=== PATIENT | male | born 1940 | race Caucasian/White ===

== ENCOUNTER 2023-08-10 13:56 | Outpatient (RCR) | payer MEDICARE, OTHER, SELFPAY | END 2023-08-11 07:36 | disposition home or self-care (01) | LOC: RPT 13:56 | PROVIDERS: ATTENDING PHYSICIAN Internal Medicine | DX: R26.89 Other abnormalities of gait and mobility (principal); R53.1 Weakness; Z73.6 Limitation of activities due to disability; R26.2 Difficulty in walking, not elsewhere classified | CPT/HCPCS: 97112; 97116; 97530 ==

== ENCOUNTER → 2023-08-29 12:18 | Outpatient (REF) | payer MEDICARE, OTHER, SELFPAY ==
[2023-08-29 13:24] LABS: INR 2.41; PT 26.6 Sec (11.4-14.6)
== END ==
LOC: REG 12:18
PROVIDERS: ATTENDING PHYSICIAN Internal Medicine Cardiovascular Disease; FAMILY PHYSICIAN Internal Medicine; REFERRING PHYSICIAN Physician Assistant
DX: Z79.01 Long term (current) use of anticoagulants (principal)
CPT/HCPCS: 36415; 85610

== ENCOUNTER → 2023-09-04 12:30 | Outpatient (REF) | payer MEDICARE, OTHER, SELFPAY ==
[2023-09-04 16:40] LABS: % Eosinophils 1.9 % (0-6); % Immature Granulocytes 0.2 % (0-0.5); % Lymphocytes 22.6 % (20.5-51.1); % Monocytes 12.6 % (1.7-9.3); % Neutrophils 61.7 % (42.2-75.2); Absolute Basophils 0.1 10^3/uL (0-0.2); Absolute Eosinophils 0.1 10^3/uL (0-0.7); Absolute Lymphocytes 1.1 10^3/uL (1.2-3.4); Absolute Monocytes 0.6 10^3/uL (0.1-0.6); Hematocrit 28.6 % (39.0-52.0); Hemoglobin 9.6 g/dL (13.0-18.0); Mean Corp Hgb Conc. 33.6 g/dL (33.0-37.0); Mean Corpuscular Hgb 34.8 pg (27.0-31.0); Mean Corpuscular Volume 103.6 fL (80.0-94.0); Mean Platelet Volume 10.7 fL (7.4-10.4); Nucleated Red Blood Cells % 0 % (-); Platelet Count 243 10^3/uL (130-400); Red Blood Cell Count 2.76 10^6/uL (4.70-6.10); Red Cell Dist. Width 12.5 % (11.5-14.5); White Blood Cell Count 4.9 10^3/uL (4.8-10.8)
[2023-09-04 16:47] LABS: ALT (SGPT) 21 U/L (0-50); AST (SGOT) 27 U/L (17-59); Albumin 4.1 g/dl (3.5-5.0); Alkaline Phosphatase 84 U/L (38-126); Blood Urea Nitrogen 37 mg/dl (9-20); Calcium 9.7 mg/dl (8.4-10.2); Carbon Dioxide 31 mmol/L (22-30); Chloride 96 mmol/L (98-107); Glucose 127 mg/dl (70-99); Potassium 5.1 mmol/L (3.5-5.1); Sodium 132 mmol/L (135-145); Total Bilirubin 0.7 mg/dl (0.2-1.3); Total Protein 7.1 g/dl (6.3-8.2); eGFR > 60.00
== END ==
LOC: CLAB 12:30
PROVIDERS: ATTENDING PHYSICIAN Internal Medicine
DX: I10 Essential (primary) hypertension (principal); I50.43 Acute on chronic combined systolic (congestive) and diastolic (congestive) heart failure; I48.91 Unspecified atrial fibrillation; D64.9 Anemia, unspecified
CPT/HCPCS: 36415; 80053; 85025

== ENCOUNTER → 2023-09-26 10:14 | Outpatient (REF) | payer MEDICARE, OTHER, SELFPAY ==
[2023-09-26 11:05] LABS: % Basophils 1.2 % (0-2); % Eosinophils 2.5 % (0-6); % Immature Granulocytes 0.2 % (0-0.5); % Lymphocytes 26.3 % (20.5-51.1); % Neutrophils 58.8 % (42.2-75.2); Absolute Basophils 0.1 10^3/uL (0-0.2); Absolute Eosinophils 0.1 10^3/uL (0-0.7); Absolute Lymphocytes 1.3 10^3/uL (1.2-3.4); Absolute Monocytes 0.6 10^3/uL (0.1-0.6); Hematocrit 33.7 % (39.0-52.0); Hemoglobin 11.4 g/dL (13.0-18.0); Mean Corp Hgb Conc. 33.8 g/dL (33.0-37.0); Mean Corpuscular Hgb 34.1 pg (27.0-31.0); Mean Corpuscular Volume 100.9 fL (80.0-94.0); Mean Platelet Volume 10.2 fL (7.4-10.4); Nucleated Red Blood Cells % 0 % (-); Platelet Count 211 10^3/uL (130-400); Red Blood Cell Count 3.34 10^6/uL (4.70-6.10); Red Cell Dist. Width 12.1 % (11.5-14.5); White Blood Cell Count 5.1 10^3/uL (4.8-10.8)
[2023-09-26 11:31] LABS: Iron 151 ug/dl (49-181)
[2023-09-26 11:40] LABS: Percent Saturation 57 % (20-50); Total Iron Binding Capacity 263 ug/dl (261-462)
[2023-09-29 01:45] LABS: Albumin 4.54 g/dL (3.75-5.01); Alpha 1 Globulin 0.25 g/dL (0.19-0.46); Alpha 2 Globulin 0.85 g/dL (0.48-1.05); Free Kappa Light Chains,Quant 69.07 mg/L (3.30-19.40); Free Lambda Light Chains,Quant 25.94 mg/L (5.71-26.30); IgA 439 mg/dL (68-408); IgG 1122 mg/dL (768-1632); IgM 92 mg/dL (35-263); Immunofixation Electrophoresis IFE Done; Kappa/Lambda Fr Light Ratio 2.66 (0.26-1.65); Total Protein-Electrophoresis 7.7 g/dL (6.3-8.2)
== END ==
LOC: REG 10:14
PROVIDERS: ATTENDING PHYSICIAN Internal Medicine Hematology & Oncology; FAMILY PHYSICIAN Internal Medicine
DX: C34.90 Malignant neoplasm of unspecified part of unspecified bronchus or lung (principal); D50.9 Iron deficiency anemia, unspecified; Z51.81 Encounter for therapeutic drug level monitoring
CPT/HCPCS: 36415; 82728; 82784; 83521; 83540; 83550; 84155; 84165; 85025; 85045; 86334

== ENCOUNTER 2023-10-09 05:09 | Inpatient (IN) | payer MEDICARE, OTHER, SELFPAY ==
[2023-10-09] VITALS (20 sets, daily range): BP systolic 103–181; BP diastolic 51–140; BMI 24.0; BMI 23.3
[2023-10-09] MEDS: ZOFRAN 4 MG IV (02:04)
[2023-10-09 02:35] LABS: % Basophils 0.6 % (0-2); % Eosinophils 1.4 % (0-6); % Immature Granulocytes 0.5 % (0-0.5); % Lymphocytes 14.1 % (20.5-51.1); % Monocytes 9.3 % (1.7-9.3); % Neutrophils 74.1 % (42.2-75.2); Absolute Eosinophils 0.1 10^3/uL (0-0.7); Absolute Lymphocytes 0.9 10^3/uL (1.2-3.4); Absolute Monocytes 0.6 10^3/uL (0.1-0.6); Absolute Neutrophils 4.9 10^3/uL (1.4-6.5); Hematocrit 27.5 % (39.0-52.0); Mean Corp Hgb Conc. 36.4 g/dL (33.0-37.0); Mean Corpuscular Hgb 34.2 pg (27.0-31.0); Mean Corpuscular Volume 94.2 fL (80.0-94.0); Mean Platelet Volume 10.3 fL (7.4-10.4); Nucleated Red Blood Cells % 0 % (-); Platelet Count 175 10^3/uL (130-400); Red Blood Cell Count 2.92 10^6/uL (4.70-6.10); White Blood Cell Count 6.7 10^3/uL (4.8-10.8)
[2023-10-09 02:43] LABS: INR 3.24; PT 33.1 Sec (11.4-14.6)
[2023-10-09 02:50] LABS: ALT (SGPT) 22 U/L (0-50); AST (SGOT) 30 U/L (17-59); Albumin 4.4 g/dl (3.5-5.0); Alkaline Phosphatase 98 U/L (38-126); Blood Urea Nitrogen 47 mg/dl (9-20); Calcium 9.5 mg/dl (8.4-10.2); Carbon Dioxide 30 mmol/L (22-30); Chloride 97 mmol/L (98-107); Estimated Creatinine Clearance 43 ml/min; Glucose 171 mg/dl (70-99); Lipase 84 U/L (23-300); Potassium 4.3 mmol/L (3.5-5.1); Sodium 135 mmol/L (135-145); Total Bilirubin 0.7 mg/dl (0.2-1.3); Total Protein 7.5 g/dl (6.3-8.2); eGFR 50.49
--- NOTE | 2023-10-09 04:13 | ED.GENMED ---
History of Present Illness
General
Chief Complaint: Abdominal Symptoms
Source: patient and family
Exam Limitations: none
Time Seen by Provider: 10/09/23 03:44
Nursing documentation reviewed up to this point in time: agreed with
Travel History
Have you had any contact with someone who has COVID-19?: No
Do you have any symptoms of coronavirus? Fever > 100 degrees, chills, cough, shortness of breath, sore throat, loss of taste or smell, muscle aches, or headache?: No
History of Present Illness
History of Present Illness:
Pleasant 83-year-old male presents with nausea, and vomiting. Patient had dark red vomitus. Patient had oral surgery about a week ago and was started on amoxicillin. Patient started vomiting on Monday and they stopped the amoxicillin as they
thought that it was contributing to the vomiting. He has not been on amoxicillin for 24 hours and the vomiting persisted. Today it was dark red. He told his that he needed to come to the hospital because he was 'too weak '. Patient does
have a history of anemia and is followed by weight engineer. He is due for a bone marrow biopsy next week. Patient is reluctant to get it.
Vital signs are stable. Patient not hypoxic
Nursing note reviewed. I agree with nursing documentation up to this point in time.
Home Meds and allergies reviewed.
NUMBER AND COMPLEXITY OF PROBLEMS ADDRESSED AT THE ENCOUNTER
� Chronic conditions affecting care: Anemia, epilepsy, TIA, lung cancer, sleep apnea, hypertension, hyperlipidemia
� Acute Exacerbation and/or Progression of Chronic Illness: Anemia
� Differential Diagnosis includes: Upper GI bleed, anemia
AMOUNT AND/OR COMPLEXITY OF DATA TO BE REVIEWED AND ANALYZED
I performed an independent evaluation of the following and my interpretation is:
EKG:
CT:
X-rays:
Ultrasound:
Laboratory Studies: Hemoglobin of 10.0
Other:
Review of other/old records:
Clinical information was obtained by an independent historian:
Prescriptions/Medications Considered but not given:
Further testing considered but not performed:
RISK OF COMPLICATIONS AND/OR MORBIDITY OR MORTALITY OF PATIENT MANAGEMENT
Social determinants of health affecting care: Good Social Support
Discussion with other providers: Hospitalist for admission
Escalation of care including admission/observation vs risk of discharge considered: Patient weak, with hematemesis
CRITICAL CARE NOTE: Not applicable
Total Time (exclusive of procedures):
Update:
Past History
Past History
ED Past Medical History: Asthma, Cancer (Lung), CHF, CVA, HTN, Hypercholesterolemia, Seizures and Other (COREY, C-pap at night, Meningitis, )
ED Past Surgical History: Tonsilectomy and Other (right lobectomy, Uvulectomy)
Social History
Tobacco: Non-smoker
Alcohol: None
Drug: None
Personal:
Living: with family
Employment: Retired
Family History
Family History: Other (reviewed and Noncontributory)
Review of Systems
Review of Systems
Allergies reviewed?: Yes
Other source history: family
All Other Systems: ROS reviewed and negative except as documented in HPI and ROS
Constitutional: Reports fatigue
EENT: Reports no symptoms
Respiratory: Reports no symptoms
Cardiac: Reports no symptoms
ABD/GI: Reports vomiting
: Reports no symptoms
Musculoskeletal: Reports no symptoms
Skin: Reports no symptoms
Neurological: Reports weakness
Endocrine: Reports no symptoms
Hematologic/Lymphatic: Reports no symptoms
Psychiatric: Reports anxiety
Phy Exam
General Physical Exam
General Presentation: mild distress
General Skin: warm, dry and pale
General Habitus: frail
General Mental: alert
General Hydration: dry mucous membranes
ENT Exam
ENT Exam: EOMI, pharynx normal, neck supple and normocephalic
Eye Exam
Eye Exam: PERRL, cornea clear and conjunctiva normal
Cardiovascular Exam
Cardiovascular Exam: regular rate/rhythm, no edema, no murmur and normal peripheral pulses
Systolic Murmur: 4/6
Pulmonary Exam
Pulmonary Exam: no respiratory distress
Gastrointestinal Exam
Gastrointestinal Exam: normal bowel sounds, non tender, soft, no organomegaly, no pulsatile mass and non distended
Neurological Exam
Neurological Exam: alert and oriented x3
Musculoskeletal Exam
Musculoskeletal Exam: full ROM and no edema
Skin Exam
Skin Exam: warm/dry
Psychiatric Exam
Psychiatric Exam: normal mood/affect and anxious
Course
Orders/Labs/Results
Orders:
Orders
10/09/23 01:52
IV Insert/Care/Rem.- Treatment PRN
10/09/23 01:56
Ondansetron Injectable [Zofran] 4 mg .ROUTE .[facility]
10/09/23 02:00
Type+Screen Urgent
Complete Blood Count/With Diff Urgent
Comprehensive Metabolic Panel Urgent
Lipase Urgent
PT/INR [Prothrombin Time] Urgent
10/09/23 02:03
Ondansetron Injectable [Zofran] 4 mg IV NOW STA
10/09/23 04:13
Pantoprazole [Protonix IV] 80 mg IV NOW STA
10/09/23 04:15
Pantoprazole 80 mg/ 100 mL 8 mg/hr CONTINUOUS INFUSION Pantoprazole 80 mg/100 ml Nss [Protonix] 80 mg in 100 ml IV Q10H
Abnormal Lab Results
10/09/23
02:00
RBC 2.92 L 10^6/uL
(4.70-6.10)
Hgb 10.0 L g/dL
(13.0-18.0)
Hct 27.5 L %
(39.0-52.0)
MCV 94.2 H fL
(80.0-94.0)
MCH 34.2 H pg
(27.0-31.0)
Absolute Lymphs (auto) 0.9 L 10^3/uL
(1.2-3.4)
Lymphocytes % 14.1 L %
(20.5-51.1)
PT 33.1 H Sec
(11.4-14.6)
Chloride 97 L mmol/L
(98-107)
BUN 47 H mg/dl
(9-20)
Creatinine 1.4 H mg/dL
(0.7-1.3)
Glucose 171 H mg/dl
(70-99)
10/09/23 02:00
10/09/23 02:00
Vital Signs
Initial and Last Documented VS:
Initial Vital Signs
Resp
20
10/09/23 01:54
Last Documented Vital Signs
Temp Pulse Resp BP Pulse Ox
98.4 F 53 27 135/60 96
10/09/23 02:06 10/09/23 03:30 10/09/23 03:30 10/09/23 03:00 10/09/23 03:30
*Critical Care Note
Total Time (30-74mins, 75-104mins- exclusive of procedures): Not Applicable
Update Note
Update Note:
10/09/2023 0433 AM: Rectal exam, performed in the presence of female nurse, occult positive. Grossly negative. Discussed blood consent. Patient verbalized understanding and agreed to transfusion if necessary. Nursing witnessed and signed. Blood
consent on chart.
ED Attending Note
-
Portions of this chart may have been created with voice recognition software.� Occasional wrong word or��sound alike� substitutions may have occurred due to the inherent limitations of voice recognition software.
Discharge Plan
Departure
Patient Disposition: Admit
Date of Disposition: 10/09/23
Time of Disposition: 04:26
Admit to: Telemetry
Presentation/result/management discussed w/ accepting MD/DO: Hospitalist
Discharge Problem:
Acute upper GI bleeding, Anemia
Prescriptions:
No Action
minoxidil 10 mg Tablet
10 mg PO BID
clonidine 0.3 MG patch weekly
0.3 mg transdermal WE
Rx Instructions:
03/01/2023, PLACE ON RIGHT SHOULDER
levetiracetam 500 mg Tablet
1,500 mg PO BID Qty: 180 1RF
cyanocobalamin (vitamin B-12) 1,000 mcg Tablet
1,000 mcg PO DAILY Qty: 30 1RF
pantoprazole 40 mg Tablet,Delayed Release (Dr/Ec)
40 mg PO DAILY Qty: 30 0RF
labetalol 200 mg tablet
600 mg PO BID
carbamazepine 200 mg Tablet Extended Release 12 Hr
600 mg PO BID
lacosamide [Vimpat] 100 mg tablet
100 mg PO BID
Patient Comments:
08/23/2023: last filled 08/08/23, 60 tabs for 30 days from [facility]
warfarin [Jantoven] 2.5 mg Tablet
5 mg PO QHS 5 Days Qty: 10 0RF
Rx Instructions:
please check INR tomrorow 08/29 and adjust with clinic as needed daily or as directed
furosemide 40 mg Tablet
40 mg PO DAILY 30 Days Qty: 30 0RF
Referrals:
Robin Garcia MD [Family Provider] -
Interventions
Interventions:
*Risk Screen - Suicide Last Done: 10/09/23 01:55
*General Assessment Last Done: 10/09/23 01:55
*Neglect/Abuse Screening Last Done: 10/09/23 01:55
ED- Fall Risk Assessment Last Done: 10/09/23 02:26
*ED COVID-19 Vaccine History Last Done: 10/09/23 01:55
KX-Vbmged-Idqavhlowd Assessment Last Done: 10/09/23 02:26
[2023-10-09] MEDS: PROTONIX IV 80 MG IV (04:19)
[2023-10-09] MEDS: PROTONIX 100 IV ×3 (04:20→14:03)
--- NOTE | 2023-10-09 04:57 | HPS.HSE ---
Family Physician
-
Family Physician: Robin Garcia
Chief Complaint
-
N/V
History of Present Illness
Patient is an 83y M with PMH significant for seizure disorder, HTN and CHF who presents to ED complaining of N/V and weakness. Patient was last hospitalized here in July of this year and noted to be in new A-Fib and CHF. He was newly started
on Coumadin and furosemide at that time. Last , patient underwent dental surgery including bridge removal and tooth extraction. He states that he did not interrupt his Coumadin therapy for this procedure. Following the procedure, he was
placed on amoxicillin. On Monday, he began to have nausea with intermittent episodes of emesis. He then stopped the amoxicillin which he thought might be contributing. His symptoms persisted despite this and patient presented to the ED for
further evaluation.
ED staff indicates that patient had dark red appearing vomitus. Patient denies any gross bleeding to me, but admits that he did not look at his vomitus.
He denies any abdominal pain, fevers, chills or urinary complaints. He denies any black or bloody stools.
Patient states that his last dose of Coumadin was 7.5mg this evening prior to bed.
Medical History
Past Medical History
Past Medical History: Reports Other
Additional Past Medical History:
Seizure disorder
Lung Cancer
Dyslipidemia
Hypertension
Sleep apnea on CPAP
History of melanoma
Colonic polyp status post polypectomy
Childhood meningitis
Ambulatory dysfunction
Cognitive dysfunction and decline
Chronic HFmrEF
Atrial Fibrillation
Chronic Anemia
CKD III
Past Surgical History: Reports Other
Additional Past Surgical History:
Right Upper Lobectomy
Melanoma Excision
Colonoscopies
Social History
Tobacco: Non-smoker
Alcohol: None
Drug: None
Family History
Family History: Not pertinent
Allergies / Home Medications
Allergies reflects when Allergies were last updated in [employer].
Home Medications with original date entered in [employer]
Allergy/Medication List:
Allergies
Allergy/AdvReac Type Severity Reaction Status Date / Time
hydralazine Allergy Unknown Verified 10/09/23 01:59
pollen extracts Allergy nasal Verified 10/09/23 01:59
symptoms
Home Medications
clonidine 0.3 mg/24 hr weekly transdermal patch 0.3 mg transdermal WE Blood Pressure 01/22/23
minoxidil 10 mg tablet 10 mg PO BID Blood Pressure 01/22/23
cyanocobalamin (vitamin B-12) 1,000 mcg tablet 1,000 mcg PO DAILY #30 tabs 02/13/23
levetiracetam 500 mg tablet 1,500 mg PO BID #180 tabs 02/13/23
pantoprazole 40 mg tablet,delayed release 40 mg PO DAILY #30 tabs 02/13/23
labetalol 200 mg tablet 600 mg PO BID 02/27/23
carbamazepine 200 mg tablet,extended release,12 hr 600 mg PO BID 03/01/23
lacosamide 100 mg tablet (Vimpat) 100 mg PO BID 03/01/23
furosemide 40 mg tablet 40 mg PO DAILY 30 days #30 tabs 08/28/23
warfarin 2.5 mg tablet (Jantoven) 7.5 mg PO QHS 10/09/23
Review of Systems
-
History Source: Patient
A 12 point ROS was completed and negative except as noted: Yes
Constitutional: Reports Fatigue; Denies Fever, Weight Gain or Chills
Respiratory: Denies Cough or Trouble Breathing
Cardiac: Denies Chest Pain or Palpitations
Abdomen/GI: Reports Nausea and Vomiting; Denies Abdominal Pain, Diarrhea, Constipated, Bloody Stools or Black Stools
: Denies Dysuria or Frequency
Neurological: Reports Dizzy; Denies Headache
Psych: Denies Depression or Anxiety
Physical Exam
Vital Signs
Vital Signs
Temp Pulse Resp BP Pulse Ox
98.4 F 53 27 135/60 96
10/09/23 02:06 10/09/23 03:30 10/09/23 03:30 10/09/23 03:00 10/09/23 03:30
Physical Exam
General: Other (83y M in no acute distress.)
HEENT: Moist mucous membranes and PERRLA
Respiratory: Clear; No Wheezes, Rales or Rhonchi
Cardiac: S1/S2, Regular Rhythm and Murmur (II/ SENTHIL)
GI: Soft, Non Tender, Non Distended and Normal Bowel Sounds
Musculoskeletal: No Clubbing, No Cyanosis and No Edema
Neuro: Awake and Alert
Laboratory Results
-
10/09/23 02:00
10/09/23 02:00
Laboratory Results
PT 33.1 Sec (11.4-14.6) H 10/09/23 02:00
INR 3.24 10/09/23 02:00
Total Bilirubin 0.7 mg/dl (0.2-1.3) 10/09/23 02:00
AST 30 U/L (17-59) 10/09/23 02:00
ALT 22 U/L (0-50) 10/09/23 02:00
Alkaline Phosphatase 98 U/L (38-126) 10/09/23 02:00
Lipase 84 U/L (23-300) 10/09/23 02:00
Impression/Plan
-
A/P: Patient is an 83y M with PMH significant for hypertension, new A-Fib and CHFmrEF who presents to ED complaining of N/V and weakness.
Intractable N/V
- Admit for further evaluation and treatment.
- Suspect acute gastritis secondary to recent abx use / amoxicillin.
- Last dose was > 24 hours ago - would remain off of this medication.
- Supportive care including antiemetics.
- Follow for any new / worsening symptoms.
Heme Positive Stool
Chronic Anemia
- Some reports of dark red vomitus per ED / spouse.
- Patient cannot confirm this to me.
- Occult blood positive stool in the ED.
- Hgb is higher than his typical baseline (though lower than his most recent check - which seems an anomaly).
- Chronic baseline Hgb has been 7-9 g/dL and is currently 10.
- Follow H&H for any changes.
- Transfuse if needed for Hgb < 7, worsening symptoms or ongoing blood loss.
- GI evaluation for further recommendations.
- Hold further amoxicillin / treat gastritis as noted above.
Coumadin Coagulopathy
Paroxysmal Atrial Fibrillation
- INR today is 3.24 with last ortiz of Coumadin being 7.5mg this evening.
- Hold further Coumadin for now.
- Consider active reversal if any hemodynamic changes, further bleeding, etc.
- Maintaining NSR at present.
- Follow on telemetry.
Chronic HFmrEF
Mild - Moderate Aortic Stenosis
- Stable. No evidence of acute volume overload, edema, etc.
- Continue current diuretic dosing, CV med regimen.
- Follow I/Os, daily weights, etc.
Multidrug Resistant Hypertension
- Stable. BP well-controlled at present.
- Continue current med regimen with holding parameters.
Seizure Disorder
- Stable. Continue AEDs without changes / interruption.
- Monitor for any breakthrough seizure activity.
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
- Continue PAP therapy during hospital stay.
CKD III
- Stable. Renal function is at / near known baseline.
- Follow for any changes.
DVT Prophylaxis: SCDs
Code Status: Full
--- NOTE | 2023-10-09 06:41 | PTCARENOTE ---
Rec'd pt as admit from ED. Pt SB on traffic monitor specialist with elevated BP. Pt does state hx of HTN. Pt incontinent of urine, hygiene care provided. Denies nausea at this time, but does c/o being generally uncomfortable. AAOx3, but forgetful, struggles
with recalling some answers to this RN's questions. Pt states that his has the answers. Orientation to this unit provided. Call urban within reach. Safe environment maintained.
--- NOTE | 2023-10-09 06:53 | CON.GI ---
Addendum entered and electronically signed by Victor Manuel Dodson MD 10/09/23 18:38:
I saw and examined the patient.
The PA's note was reviewed and I agree with the note.
Comment:
Pt is a 83 year old male with h/o seizure, asthma, lung CA with lobectomy, colon polyps, sleep apnea, cognitive decline, CKD,�and chronic anemia p/w weakness, nausea/vomiting. It was noted in ER that his vomitus appeared 'reddish'.
Impression / Rec:
1. ? blood in vomitus, anemia - pt was previously seen for anemia in 07/2023 in setting of new afib and CHF with start of Coumadin and Furosemide.� During that admission his Hgb was noted to be in chronic range and had heme -ve stool, thus
recommended hematology evaluation. � He is planned for bone marrow bx next week.� In ER noted 'reddish' emesis, Hgb on admission was 10 with most recent Hgb at 11.4 on 09/26/23 but range of 7-8 over last year.� Pt is on coumadin with INR 3.24 today.
� No prior EGD, last colonoscopy was in 2016 with diverticulosis, adenomatous and HP polyps. Can consider endo eval with EGD, wishes to think about it. Will need to defer until INR < 1.5. OK for CLD.
Original Note:
Consultation
-
Date/Time Consultation Requested: 10/09/23 0600
Date/Time Consultation Performed: 10/09/23 0730
Requesting Provider: Yadiel Adan DO
Performing Provider: ANNE Mueller, Victor Manuel Dodson MD
Reason for Consultation: nausea/vomiting
Medical History
Chief Complaint / HPI
Chief Complaint: nausea/vomiting
History of Present Illness:
Pt is a 83yo with hx seizure disorder, asthma, lung CA with lobectomy, colon polyps, sleep apnea, cognitive decline, CKD, chronic anemia with admission in July with new afib and CHF with start of Coumadin and Furosemide. Pt was seen during
that admission by GI with anemia but hbg was in chronic range and noted heme neg and recommended to consider hematology evaluation. He did have heme follow up and due for bone marrow bx next week. He has recent dental work last week with removal of
bridge and tooth extraction. Post procedure was started on Amoxicillin and began with nausea and vomiting. In ER noted with dark emesis On admission hbg 10 with last hbg 11.4 09/26/23 but range of 7-8 over last year. BUN 47 and 1.4 higher than
prior range with INR 3.24 with Coumadin use and noted heme + in ER. No hx EGD. Last colonoscopy 2015 with diverticulosis, adenomatous and HP polyps. Pt also due for bone marrow biopsy next week.
Pt currently denies dysphagia, odynophagia, GERD, abdominal pain, diarrhea or black stools. Pt does admits to some constipation in past. Several doses of Motrin last week with dental work.
Past Medical History
Past Medical History: Arrhythmias (afib), Asthma, Cancer (lung CA with upper lobectomy 2014, melanoma), CHF, HTN, Renal Failure (CKD), Seizures and Other (anemia, sleep apnea. colon polyps, PNA, congnitive decline)
Past Surgical History: Other (right upper lobectomy, uvulectomy)
Social History
Tobacco: Non-Smoker
Alcohol: Former (quit 30 years ago)
Drug: None
Personal:
Living: With Family
Employment: Retired
Family History
Family History: Other (no family hx colon CA or polyps sister with brain CA)
Allergies / Home Medications
Allergy/AdvReac Type Severity Reaction Status Date / Time
hydralazine Allergy Unknown Verified 10/09/23 01:59
pollen extracts Allergy nasal Verified 10/09/23 01:59
symptoms
Medication Instructions Recorded
clonidine 0.3 mg/24 hr weekly 0.3 mg transdermal WE Blood 01/22/23
transdermal patch Pressure
minoxidil 10 mg tablet 10 mg PO BID Blood Pressure 01/22/23
cyanocobalamin (vitamin B-12) 1,000 mcg PO DAILY #30 tabs 02/13/23
1,000 mcg tablet
levetiracetam 500 mg tablet 1,500 mg PO BID #180 tabs 02/13/23
pantoprazole 40 mg tablet,delayed 40 mg PO DAILY #30 tabs 02/13/23
release
labetalol 200 mg tablet 600 mg PO BID 02/27/23
carbamazepine 200 mg 600 mg PO BID 03/01/23
tablet,extended release,12 hr
lacosamide 100 mg tablet (Vimpat) 100 mg PO BID 03/01/23
furosemide 40 mg tablet 40 mg PO DAILY 30 days #30 tabs 08/28/23
warfarin 2.5 mg tablet (Jantoven) 7.5 mg PO QHS 10/09/23
Review of Systems
-
History Source: Patient and Family
Constitutional: Reports No Symptoms and Weight Loss (with diuresis )
EENT: Reports No Symptoms
Respiratory: Reports Trouble Breathing (at times with exertion )
Cardiac: Reports No Symptoms
Abdomen/GI: Reports Nausea and Vomiting (reported dark emesis )
Musculoskeletal: Reports No Symptoms
Skin: Reports No Symptoms
Neurological: Reports No Symptoms
Endocrine: Reports No Symptoms
Hematologic/Lymphatic: Reports No Symptoms
Vital Signs
Temp Pulse Resp BP Pulse Ox
98.1 F 55 12 133/74 97
10/09/23 06:27 10/09/23 06:00 10/09/23 06:00 10/09/23 06:00 10/09/23 06:00
Physical Exam
Exam
General: Well Developed, Well Nourished and No Apparent Distress
HEENT: Normocephalic and Anicteric
Respiratory: Clear
Cardiac: Other (bradicardia )
GI: Soft
Musculoskeletal: No Clubbing and No Cyanosis
Skin: Warm and Dry
Neuro: Awake, Alert, AO x 3 and Other (forgetful to some questions)
Psych: Calm
Results
WBC 6.7 10^3/uL (4.8-10.8) 10/09/23 02:00
Hgb 10.0 g/dL (13.0-18.0) L 10/09/23 02:00
Hct 27.5 % (39.0-52.0) L 10/09/23 02:00
MCV 94.2 fL (80.0-94.0) H 10/09/23 02:00
Plt Count 175 10^3/uL (130-400) 10/09/23 02:00
Absolute Neuts (auto) 4.9 10^3/uL (1.4-6.5) 10/09/23 02:00
PT 33.1 Sec (11.4-14.6) H 10/09/23 02:00
INR 3.24 10/09/23 02:00
Sodium 135 mmol/L (135-145) 10/09/23 02:00
Potassium 4.3 mmol/L (3.5-5.1) 10/09/23 02:00
Chloride 97 mmol/L (98-107) L 10/09/23 02:00
Carbon Dioxide 30 mmol/L (22-30) 10/09/23 02:00
BUN 47 mg/dl (9-20) H 10/09/23 02:00
Creatinine 1.4 mg/dL (0.7-1.3) H 10/09/23 02:00
Calcium 9.5 mg/dl (8.4-10.2) 10/09/23 02:00
Total Bilirubin 0.7 mg/dl (0.2-1.3) 10/09/23 02:00
AST 30 U/L (17-59) 10/09/23 02:00
ALT 22 U/L (0-50) 10/09/23 02:00
Alkaline Phosphatase 98 U/L (38-126) 10/09/23 02:00
Lipase 84 U/L (23-300) 10/09/23 02:00
Diagnostic Image Results:
Prior GI Procedures:
EGD: none
Colonoscopy: 2016- timi� � � - Perianal skin tags found on perianal exam.
�� � � � � � � � � � - Diverticulosis in the sigmoid colon and in the
�� � � � � � � � � � descending colon.
�� � � � � � � � � � - Four 6 to 9 mm polyps in the sigmoid colon, in the
�� � � � � � � � � � transverse colon and in the ascending colon. Resected
�� � � � � � � � � � and retrieved.
�� � � � � � � � � � - The distal rectum and anal verge are normal on
�� � � � � � � � � � retroflexion view.
bx Adenomatous and HP polyps
Assessment / Plan
-
Pt is a 83yo with hx seizure disorder, asthma, lung CA with lobectomy, colon polyps, sleep apnea, cognitive decline, CKD, chronic anemia with admission in July with new afib and CHF with start of Coumadin and Furosemide. Pt was seen during
that admission by GI with anemia but hbg was in chronic range and noted heme neg and recommended to consider hematology evaluation. He did have heme follow up and due for bone marrow bx next week. He has recent dental work last week with removal
of bridge and tooth extraction. Post procedure was started on Amoxicillin and began with nausea and vomiting. In ER noted with dark emesis On admission hbg 10 with last hbg 11.4 09/26/23 but range of 7-8 over last year. BUN 47 and 1.4 higher than
prior range with INR 3.24 with Coumadin use and noted heme + in ER. No hx EGD. Last colonoscopy 2015 with diverticulosis, adenomatous and HP polyps. few dose of Motrin used with recent dental work.
-dark emesis on admission
-heme + stool
-hx chronic anemia due for bone marrow bx
-afib on Coumadin
-recent dental work
-CHF with recent diuresis and wt loss
other medical problems:
-hx adenomatous and hyperplastic colon polyps
-seizure disorder
-asthma
-lung CA with lobectomy
-CKD
-cognitive decline
PLAN:
etiology of nausea/vomiting related to recent Amoxicillin use vs other now some improvement today
dark emesis related to recent dental work vs UGI bleed( MW tear with recent vomiting , esophagitis, PUD with couple dose of Motrin with dental work) vs other
hbg 10 on admission with some improvement since last few months and with recent diuresis
iron studies in August without iron deficiency(iron 151, TIBC 263, % sat 57, ferritin 578)
cont to trend hbg transfuse <7
advance to clears
follow stool record
cont Protonix gtt
Coumadin hold INR 3.24 this am per family recent increased OP dosing
discussed with pt and for EGD if neg colon after Coumadin wash out will review with patient to see if they would want to proceed
pt also due for bone marrow bx next week
-
-
Thank you for consultation and allowing me to participate in the patient's care. Please call the distribution engineering technologist GI physician during the after hours with any questions or concerns.
[2023-10-09] MEDS: LASIX 40 MG PO (09:03)
[2023-10-09] MEDS: KEPPRA 1500 MG PO ×2 (09:03→21:02)
[2023-10-09 09:05] LABS: Hematocrit 27.4 % (39.0-52.0); Hemoglobin 9.7 g/dL (13.0-18.0)
[2023-10-09] MEDS: LONITEN 10 MG PO ×2 (09:05→21:03)
[2023-10-09] MEDS: TEGRETOL 600 MG PO ×2 (09:06→21:04)
[2023-10-09] MEDS: VIMPAT 100 MG PO ×2 (09:08→21:03)
[2023-10-09] MEDS: TRANDATE PO (09:26)
--- NOTE | 2023-10-09 13:30 | PTCARENOTE ---
Patient out of bed to chair in good spirits. Denying pain when asked. Tolerating clear liquid diet. No vomiting, denying nausea. at bedside. protonix drip continues.
--- NOTE | 2023-10-09 14:13 | W.PN.HOSP.TC ---
Today's Communication/Plan
-
Monitor vital signs and see plan
Monitor hemoglobin
Check UA
Follow renal function
GI following
Nonbillable note
Assessment / Plan
Assessment / Plan
General: no acute distress
HEENT: Moist mucous membranes and PERRLA
Respiratory: Clear; No Wheezes, Rales or Rhonchi
Cardiac: S1/S2, Regular Rhythm and Murmur (II/ SENTHIL)
GI: Soft, Non Tender, Non Distended and Normal Bowel Sounds
Musculoskeletal: No Clubbing, No Cyanosis and No Edema
Neuro: Awake and Alert
Intractable N/V
�- Suspect acute gastritis secondary to recent abx use / amoxicillin.
�- Last dose was > 24 hours ago - would remain off of this medication.
�- Supportive care including antiemetics.
�- Follow for any new / worsening symptoms.
�
Heme Positive Stool
Chronic Anemia
�- Some reports of dark red vomitus per ED / spouse.
�- Patient cannot confirm this to me.
�- Occult blood positive stool in the ED.
�- Hgb is higher than his typical baseline (though lower than his most recent check - which seems an anomaly).
�- Chronic baseline Hgb has been 7-9 g/dL
�- Follow H&H for any changes.
�- Transfuse if needed for Hgb < 7, worsening symptoms or ongoing blood loss.
�- GI following
PPI, continue with clears for now
�- Hold further amoxicillin / treat gastritis as noted above.
Coumadin Coagulopathy
Paroxysmal Atrial Fibrillation
�- INR today is 3.24 with last ortiz of Coumadin being 7.5mg evening 10/07
�- Hold further Coumadin for now.
�- Consider active reversal if any hemodynamic changes, further bleeding, etc.
�- Maintaining NSR at present.
Chronic HFmrEF
Mild - Moderate Aortic Stenosis
�- Stable.� No evidence of acute volume overload, edema, etc.
�- Continue current diuretic dosing, CV med regimen.
�- Follow I/Os, daily weights, etc.
LORIE
check Ua
bladder scan
hold lasix
Multidrug Resistant Hypertension
�- Stable.� BP well-controlled at present.
�- Continue current med regimen with holding parameters.
Seizure Disorder
�- Stable.� Continue AEDs without changes / interruption.
�- Monitor for any breakthrough seizure activity.
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
�- Continue PAP therapy during hospital stay.
CKD III
�- Stable.� Renal function is at / near known baseline.
�- Follow for any changes.
DVT Prophylaxis:� SCDs
Code Status: � Full
Anticipated Discharge: > 48 hours
Subjective/Interval History
-
Date of Service: October 09, 2023
denies pain
Objective Data
-
Labs:
Laboratory Results
10/09/23 10/09/23 10/09/23
02:00 08:53 12:02
WBC 6.7
Hgb 10.0 L 9.7 L Pending
Hct 27.5 L 27.4 L Pending
Plt Count 175
PT 33.1 H
INR 3.24
Sodium 135
Potassium 4.3
Chloride 97 L
Carbon Dioxide 30
BUN 47 H
Creatinine 1.4 H
Glucose 171 H
Calcium 9.5
Total Bilirubin 0.7
AST 30
ALT 22
Alkaline Phosphatase 98
10/09/23
18:02
WBC
Hgb Pending
Hct Pending
Plt Count
PT
INR
Sodium
Potassium
Chloride
Carbon Dioxide
BUN
Creatinine
Glucose
Calcium
Total Bilirubin
AST
ALT
Alkaline Phosphatase
Vital Signs:
Vital Signs
Temp Pulse Resp BP Pulse Ox
97.3 F 61 16 126/85 97
10/09/23 11:50 10/09/23 11:45 10/09/23 11:45 10/09/23 10:00 10/09/23 11:48
I&O
10/08/23 10/09/23 10/10/23
06:59 06:59 06:59
Intake Total 780 / 780
Output Total 250 / 250
Balance 530 / 530
--- NOTE | 2023-10-09 14:23 | VNURNOTE ---
Patient is current with [facility] since 08/29 w/SN/PT, has been discharged from OT at home. Will monitor progress and plan at discharge.
[2023-10-09 14:40] LABS: Hematocrit 28.5 % (39.0-52.0); Hemoglobin 10.1 g/dL (13.0-18.0)
[2023-10-09 14:47] LABS: Urine Albumin Negative (Neg - Trace); Urine Bilirubin Negative (Negative); Urine Character Clear (Clear); Urine Color Yellow; Urine Glucose Negative (Negative); Urine Ketone Negative (Negative); Urine Leukocyte Negative (Negative); Urine Nitrite Negative (Negative); Urine Occult Blood Negative (Negative); Urine Urobilinogen Negative (Neg - 1+); Urine pH 6.5 (5.0-9.0)
--- NOTE | 2023-10-09 16:55 | CM ---
Patient with Dx Intractable N/V, Suspected acute gastritis. Room air. Clear liquids.
Met with patient and Santa;
the patient resides with his in a 2 story condo with 1 TELLO and chair lift to 2nd floor.
He has been independent in ADLs and ambulation using his RW.
DME - hospital bed, RW, SPC, overbed table, w/c, transport chair
[facility] - current with [facility] for SN (for labs) and PT
[facility] - [facility]
PCP - Robin Garcia
Pharmacy - [facility]
The says the patient was in hospice about 1 1/2 years ago, which was then revoked. The patient is currently receiving services with Palliative Care.
The patient has children in [place] & [place].
Patient and wish to resume service with [facility] for SN & PT. [facility] Lia[facility] aware.
Plan home with resumption of [facility].
[2023-10-09 20:54] LABS: Hematocrit 25.9 % (39.0-52.0); Hemoglobin 9.3 g/dL (13.0-18.0)
[2023-10-09] MEDS: TRANDATE 600 MG PO (21:57)
[2023-10-10] VITALS (20 sets, daily range): BP systolic 109–167; BP diastolic 50–75; PULSE 50–60; O2SAT 96–100
[2023-10-10] MEDS: PROTONIX 100 IV (01:46)
[2023-10-10 02:27] LABS: INR 3.14; PT 32.2 Sec (11.4-14.6)
[2023-10-10 04:05] LABS: % Basophils 0.7 % (0-2); % Eosinophils 1.3 % (0-6); % Immature Granulocytes 0.2 % (0-0.5); % Lymphocytes 23.7 % (20.5-51.1); % Monocytes 12.2 % (1.7-9.3); % Neutrophils 61.9 % (42.2-75.2); Absolute Eosinophils 0.1 10^3/uL (0-0.7); Absolute Lymphocytes 1.3 10^3/uL (1.2-3.4); Absolute Monocytes 0.7 10^3/uL (0.1-0.6); Absolute Neutrophils 3.4 10^3/uL (1.4-6.5); Hematocrit 25.9 % (39.0-52.0); Hemoglobin 9.2 g/dL (13.0-18.0); Mean Corp Hgb Conc. 35.5 g/dL (33.0-37.0); Mean Corpuscular Hgb 33.9 pg (27.0-31.0); Mean Corpuscular Volume 95.6 fL (80.0-94.0); Mean Platelet Volume 10.6 fL (7.4-10.4); Nucleated Red Blood Cells % 0 % (-); Platelet Count 163 10^3/uL (130-400); Red Blood Cell Count 2.71 10^6/uL (4.70-6.10); Red Cell Dist. Width 11.9 % (11.5-14.5); White Blood Cell Count 5.5 10^3/uL (4.8-10.8)
[2023-10-10 04:29] LABS: ALT (SGPT) 17 U/L (0-50); AST (SGOT) 26 U/L (17-59); Albumin 3.7 g/dl (3.5-5.0); Alkaline Phosphatase 87 U/L (38-126); Blood Urea Nitrogen 41 mg/dl (9-20); Calcium 8.8 mg/dl (8.4-10.2); Carbon Dioxide 29 mmol/L (22-30); Chloride 99 mmol/L (98-107); Direct Bilirubin 0.1 mg/dl (0.0-0.4); Estimated Creatinine Clearance 46 ml/min; Glucose 107 mg/dl (70-99); Sodium 133 mmol/L (135-145); Total Bilirubin 0.7 mg/dl (0.2-1.3); Total Protein 6.5 g/dl (6.3-8.2); eGFR 55.19
--- NOTE | 2023-10-10 06:12 | PTCARENOTE ---
Pt noted to desat to 79% while sleeping. 2L nasal cannula placed and pt woken up with improvement to 96%
--- NOTE | 2023-10-10 08:13 | W.PN.GI.CBS2 ---
Addendum entered and electronically signed by Johana Garsia DO 10/10/23 18:51:
Patient seen and examined independently of [employer]. I agree with her note with my additions below
Robin is an 83-year-old male with history of seizure disorder, lung cancer status post lobectomy, sleep apnea, cognitive decline, chronic anemia, prolonged admission over the summer 2022, admission in July with new A-fib and CHF started on warfarin
and Lasix. In July his hemoglobin was in the sevens GI was consulted at that at that time. He had heme-negative stools and hematology evaluation was started where he is set for bone marrow biopsy next week. He comes back this time with nausea
vomiting with questionable hematin in the vomitus. He had dental work last week followed by Motrin use and started on amoxicillin. He became nauseous and vomited. His hemoglobins are better now than they were in July ranging 9-10 and have been
stable since admission. He no longer has nausea and is tolerating a diet well. His INR is 3.14 on warfarin today. His platelet counts 163. His stool was brown.
He is not iron deficient with a ferritin of 578
I had a long discussion roughly 20 minutes with his on the phone discussing his history and plan.
For now we will be somewhat conservative and continue the PPI which he does not take at home according to his and get an upper GI series tomorrow to make sure there is nothing significant like a mass or large ulcer
Currently holding off on EGD
The patient is currently on palliative care and was previously on hospice but was discharged due to his good status
Original Note:
Today's Communication / Plan
-
etiology of nausea/vomiting related to recent Amoxicillin use vs other no further vomiting since admission
dark emesis related to recent dental work vs UGI bleed( MW tear with recent vomiting , esophagitis, PUD with couple dose of Motrin with dental work) vs other
hbg minimal drop since admission to 9.2
iron studies in August without iron deficiency(iron 151, TIBC 263, % sat 57, ferritin 578)
cont to trend hbg transfuse <7
advance to low residue diet
follow stool record-- no stools since admission
transition to Protonix PO daily
Coumadin hold --INR 3.14 this am per family recent increased OP dosing
add Miralax daily as patient takes at home and no stools since admission
I discussed with this am-- about EGD/colon as no prior EGD and colon 2016 with anemia, recent heme + and vomiting dark emesis with new coumadin use. She will be in today most of day and states she would like to proceed with testing but
patient is reluctant for GI testing and bone marrow biopsy. Will have Dr. Garsia review with patient and later today to confirm plan from GI standpoint.
Assessment / Plan
-
Pt is a 83yo with hx seizure disorder, asthma, lung CA with lobectomy, colon polyps, sleep apnea, cognitive decline, CKD, chronic anemia with admission in July with new afib and CHF with start of Coumadin and Furosemide. Pt was seen during
that admission by GI with anemia but hbg was in chronic range and noted heme neg and recommended to consider hematology evaluation. He did have heme follow up and due for bone marrow bx next week. He has recent dental work last week with removal
of bridge and tooth extraction. Post procedure was started on Amoxicillin and began with nausea and vomiting. In ER noted with dark emesis On admission hbg 10 with last hbg 11.4 09/26/23 but range of 7-8 over last year. BUN 47 and 1.4 higher than
prior range with INR 3.24 with Coumadin use and noted heme + in ER. No hx EGD. Last colonoscopy 2016 with diverticulosis, adenomatous and HP polyps. few dose of Motrin used with recent dental work.
-dark emesis on admission
-heme + stool
-hx chronic anemia due for bone marrow bx
-afib on Coumadin prior to admission
-recent dental work
-CHF with recent diuresis and wt loss
-chronic constipation on daily miralax
-bradicardia on exam
other medical problems:
-hx adenomatous and hyperplastic colon polyps
-seizure disorder
-asthma
-lung CA with lobectomy
-CKD
-cognitive decline
PLAN:
etiology of nausea/vomiting related to recent Amoxicillin use vs other no further vomiting since admission
dark emesis related to recent dental work vs UGI bleed( MW tear with recent vomiting , esophagitis, PUD with couple dose of Motrin with dental work) vs other
hbg minimal drop since admission to 9.2
iron studies in August without iron deficiency(iron 151, TIBC 263, % sat 57, ferritin 578)
cont to trend hbg transfuse <7
advance to low residue diet
follow stool record-- no stools since admission
transition to Protonix PO daily
Coumadin hold --INR 3.14 this am per family recent increased OP dosing
add Miralax daily as patient takes at home and no stools since admission
I discussed with this am-- about EGD/colon as no prior EGD and colon 2016 with anemia, recent heme + and vomiting dark emesis with new coumadin use. She will be in today most of day and states she would like to proceed with testing but
patient is reluctant for GI testing and bone marrow biopsy. Will have Dr. Garsia review with patient and later today to confirm plan from GI standpoint.
Subjective
Subjective
Date of Service: October 10, 2023
NPO this am no problems overnight no further vomiting since admission, no stools
Objective
Data Reviewed
Laboratory Data:
Laboratory Results
10/10/23 03:36
10/10/23 03:36
Laboratory Results
PT 32.2 Sec (11.4-14.6) H 10/10/23 02:00
INR 3.14 10/10/23 02:00
Total Bilirubin 0.7 mg/dl (0.2-1.3) 10/10/23 03:36
AST 26 U/L (17-59) 10/10/23 03:36
ALT 17 U/L (0-50) 10/10/23 03:36
Alkaline Phosphatase 87 U/L (38-126) 10/10/23 03:36
Lipase 84 U/L (23-300) 10/09/23 02:00
Vital Signs and I&O:
Vital Signs
Temp Pulse Resp BP Pulse Ox
98.3 F 60 23 120/66 95
10/10/23 07:29 10/10/23 06:00 10/10/23 06:00 10/10/23 06:00 10/10/23 04:00
I&O
10/09/23 10/10/23 10/11/23
06:59 06:59 06:59
Intake Total 996 / 996
Output Total 575 / 575
Balance 421 / 421
Physical Exam
Physical Exam
HEENT: Anicteric and Moist mucous membranes
Cardiology: Other (bradicardia )
Pulmonary: Clear
GI: Soft, Non Distended and Non Tender
Extremities: No Edema
Neuro: Other (forgetful to some questions)
[2023-10-10] MEDS: KEPPRA 1500 MG PO ×2 (08:58→19:59)
[2023-10-10] MEDS: PROTONIX 40 MG PO (08:58)
[2023-10-10] MEDS: TEGRETOL 600 MG PO (08:58)
[2023-10-10] MEDS: VIMPAT 100 MG PO (08:59)
[2023-10-10] MEDS: LONITEN 10 MG PO ×2 (08:59→20:02)
[2023-10-10] MEDS: MIRALAX 17 GRAMS PO (09:03)
[2023-10-10] MEDS: TRANDATE PO (09:03)
--- NOTE | 2023-10-10 10:09 | CM ---
Patient seen at bedside. Patient for further testing tomorrow. Patient followed by Palliative care per chart review and referred to [facility] for following post discharge. CM will continue to follow for discharge planning needs.
Plan; home with VN; [facility]
[2023-10-10 11:28] LABS: Glucose - Point of Care 113 mg/dl (70-99)
--- NOTE | 2023-10-10 11:32 | PTCARENOTE ---
Addendum entered by Ava Jacobson RN 10/10/23 19:21:
NIHSS exam completed by MD and stroke alert team. No NIHSS score ordered at this time. Neuro checks completed.
Original Note:
While out of bed getting washed up, RN observed that patients speech was slurred, left side facial droop and he was having jerky body movements. at bedside agreed with slurred speech. Patient transferred to bed and stroke alert called. Vital
signs 146/70. 55 , afebile, resp rate 13. Pulse ox 95% on room air. Dr. Bryant and neurology notified.
--- NOTE | 2023-10-10 11:58 | W.PN.HOSP.TC ---
Today's Communication/Plan
-
Monitor vital signs
See plan
Neurology evaluated for change in mental status, antiepileptic adjusted
Check orthostatics
Monitor hemoglobin
Discussed with spouse at bedside
Assessment / Plan
Assessment / Plan
General: no acute distress
HEENT: Moist mucous membranes and PERRLA
Respiratory: Clear; No Wheezes, Rales or Rhonchi
Cardiac: S1/S2, Regular Rhythm and Murmur (II/ SENTHIL)
GI: Soft, Non Tender, Non Distended and Normal Bowel Sounds
Musculoskeletal: No Clubbing, No Cyanosis and No Edema
Neuro: Awake and Alert
Intractable N/V
�- Suspect acute gastritis secondary to recent abx use / amoxicillin.
�- Last dose was > 24 hours ago - would remain off of this medication.
�- Supportive care including antiemetics.
�- Follow for any new / worsening symptoms.
�
Heme Positive Stool
Chronic Anemia
�- Some reports of dark red vomitus per ED / spouse.
�- Patient cannot confirm this to me.
�- Occult blood positive stool in the ED.
�- Hgb is higher than his typical baseline (though lower than his most recent check - which seems an anomaly).
�- Chronic baseline Hgb has been 7-9 g/dL
�- Transfuse if needed for Hgb < 7, worsening symptoms or ongoing blood loss.
�- GI following
PPI, continue with LRD now; scope per GI
�- Hold further amoxicillin / treat gastritis as noted above.
Coumadin Coagulopathy
Paroxysmal Atrial Fibrillation
�- INR today is 3.14 with last ortiz of Coumadin being 7.5mg evening 10/07
�- Hold further Coumadin for now.
�- Consider active reversal if any hemodynamic changes, further bleeding, etc.
�- Maintaining NSR at present.
follows with Dr Busby outpatient
Chronic HFmrEF
Mild - Moderate Aortic Stenosis
�- Stable.� No evidence of acute volume overload, edema, etc.
�- Continue current diuretic dosing, CV med regimen.
�- Follow I/Os, daily weights, etc.
hold lasix for now
Abrupt change in mental status 10/09
CT scan negative for any hemorrhage, shows chronic infarct
Evaluated by neurology, Vimpat increased to 150 mg twice daily. Also on Keppra
�- Monitor for any breakthrough seizure activity.
Follows up with Dr. Correia outpatient
keppra level pending
LORIE on CKD
check Ua wnl
bladder scan
hold lasix
Mild hyponatremia
Monitor
Multidrug Resistant Hypertension
�- Continue current med regimen with holding parameters. dec clonidine to 0.2 as has bradycardia
periods of breadycardia
monitor
hx of CVA
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
�- Continue PAP therapy during hospital stay.
DVT Prophylaxis:� SCDs; supratherapeutic INR
Code Status: � Full
I spent a total of 54 minutes with the patient or on the floor. More than 50% of this time involved counseling and coordination of care.
Anticipated Discharge: > 48 hours
Subjective/Interval History
-
Date of Service: October 10, 2023
denies pain
Objective Data
-
Labs:
Laboratory Results
10/10/23 10/10/23 10/10/23
01:54 02:00 02:11
WBC
Hgb Cancelled Cancelled
Hct Cancelled Cancelled
Plt Count
PT 32.2 H
INR 3.14
Sodium
Potassium
Chloride
Carbon Dioxide
BUN
Creatinine
Glucose
Calcium
Total Bilirubin
AST
ALT
Alkaline Phosphatase
10/10/23
03:36
WBC 5.5
Hgb 9.2 L
Hct 25.9 L
Plt Count 163
PT
INR
Sodium 133 L
Potassium 4.0
Chloride 99
Carbon Dioxide 29
BUN 41 H
Creatinine 1.3
Glucose 107 H
Calcium 8.8
Total Bilirubin 0.7
AST 26
ALT 17
Alkaline Phosphatase 87
Vital Signs:
Vital Signs
Temp Pulse Resp BP Pulse Ox
98.3 F 59 17 146/70 98
10/10/23 07:29 10/10/23 11:16 10/10/23 11:16 10/10/23 11:16 10/10/23 10:58
I&O
10/09/23 10/10/23 10/11/23
06:59 06:59 06:59
Intake Total 996 / 996
Output Total 575 / 575 175 / 175
Balance 421 / 421 -175 / -175
--- NOTE | 2023-10-10 11:59 | CON.NEURO4 ---
Addendum entered and electronically signed by Edward Edouard MD 10/10/23 13:26:
Studies reviewed.
I have personally examined the patient. I reviewed and agree with the DIRECTOR OF CLINICAL SERVICES's Note.
My addenda:
Awake, alert, interactive. No acute distress.
Speech intact, after initially having mildly thick speech. Myoclonic movements of jaw, subtle.
Follows 2-step requests w/o difficulty. Hand tremor, low amplitude, stool, with action only.
Extra-ocular movements grossly intact.
Facial movements full and symmetric. Hearing intact to normal conversational volume.
Normal UE movements bilaterally.
Neck: full ROM.
Chest: no dyspnea
Heart: no JVD
Ext: (-) Clubbing, (-) Cyanosis, (-) Edema
IMPRESSIONS/RECOMMENDATIONS:
Abrupt onset of change in speech while ambulating
DDX seizure, orthostatic hypotension
Provide extra Lacosamide 50 mg now, with increase to 150 mg BID
follow Carbamazepine levels, continue dosing (missed several doses due to emesis recently)
follow orthostatics
D/W patient / family / nursing
Will continue to follow pending results.
Original Note:
Documented by User: Flower Sims NP 10/10/23 13:02
Consultation - Neurology 4
-
CONSULTING PHYSICIAN: Edward Edouard MD
REFERRING PHYSICIAN: Hospitalists/Dr. Bryant
DICTATED BY: ANNE Sebastian
DATE/TIME OF REQUEST: 10/10/23
DATE/TIME OF CONSULTATION: 10/10/23
Reason for Consultation: Stroke Alert
History of Present Illness:
This is an 83-year-old male who has presented to the hospital on 10/09/23 with report of nausea, vomiting, and dark red emesis starting on 10/07/23 following a dental procedure/amoxicillin usage last week. He was recently diagnosed with Afib in
July 2023 and started on Coumadin at that time. INR 3.24 on arrival and stool is heme positive. Patient is known to our Neurology service from several encounters in the past for seizure disorder.
From previous evaluation by Dr. Edouard on 11/09/21:
'Abrupt onset of recurrent change in mental status. Patient has been evaluated by our service Due to recurrent episodes of change in mental status since 2016. Patient has a history of generalized tonic-clonic seizures presumed to be secondary to
meningitis at age 4. The last episode of generalized tonic-clonic movements was described as taking place in 2014. The patient has also been experiencing cognitive decline since 2014. He is followed by a local neurologist at [place]. Since 2016,
the patient has undergone 5 MRIs of the brain which have shown evolution since 2015 in the form of additional intraparenchymal basal ganglia and right temporal changes including microhemorrhages and lacunar infarcts. Patient is also had documented a
right internal capsule and left frontal lacunar infarcts by his most recent MRI of the brain performed in October 2021.
Patient has undergone 6 EEGs since 2015 ranging from 3 per second spike and wave discharges to diffuse slowing demonstrated as of November 01, 2021 he has undergone a 24 hour EEG most recently in February 2020 which continued to show 3 per second spike
and wave discharges intermittently.'
This morning (10/10/23), patient was getting 'washed up' around 1130 when he reports he stood up and felt 'woozy.' Nursing staff noted that his speech was slurred, his left face appeared droopy, and he was having jerking movements in his arms and
tongue, prompting them to call a stroke alert. CT head was obtained and is negative for any acute abnormalities. Patient currently feels back to his baseline. Speech is mildly dysarthric, which his reports is his baseline. NIHSS is 1 for
dysarthria. Myoclonic movements are observed in his jaw, tongue, and left arm. He denies any headache, vision changes, swallowing difficulty, numbness, weakness, nausea, chest pain, palpitations, and shortness of breath. His last seizure was at
in January 2023. He has been compliant with his carbamazepine 600mg BID, lacosamide 100mg BID, and levetiracetam 1500mg BID but he did have several days of emesis recently.
Past Medical History: Afib (Coumadin), seizure disorder since meningitis at age 4, R internal capsule and left frontal lacunar infarcts and microhemorrhages, dementia, RUL adenocarcinoma s/p resection, CHF, aortic stenosis, HTN, HLD, COREY
(noncompliant cpap), asthma, melanoma, colon polyps, CKD, iron deficiency anemia, cervical stenosis
Surgical History:� RUL lung resection 2015, melanoma excision
Family History:� Brother- Cerebral aneurysm
Social History:� No tobacco, alcohol, or illicit drug use.
Allergies:� Hydralazine, pollen
Home Medications:� See below.
Review of Symptoms:
Patient denies any fever, headache, chest pain, shortness of breath, GI or symptoms.
�Per the HPI.�All systems are reviewed negative except above.
Physical Exam:
The patient is afebrile, abdomen is nondistended, breathing is unlabored, skin is warm and dry, no edema.
NIH Stroke Scale:
I performed the NIH stroke scale on the patient on 10/10/23 at 1145. The patient scored 0 points on the NIH stroke scale assessment.
Neurologic Examination:
The patient is awake, alert and oriented x 3. He is able to follow commands and answer questions appropriately. There is no aphasia. Speech is mildly dysarthric. On cranial nerve assessment, pupils are 3 mm bilateral, round and reactive to light
and accommodation. Visual brandt are full. Extraocular movements are intact. Facial sensations are intact and bilaterally symmetrical, there is no facial asymmetry. Hearing is intact bilaterally to normal conversation volume. Tongue palate and uvula
are midline. Sternocleidomastoid strengths are full bilaterally. Motor strengths are 5/5 bilateral upper and lower extremities on medical research Dunlap scale. There is no drift. There is myoclonus in the jaw, tongue, and left arm. Low amplitude
semirhythmic tremor noted in distal bilateral upper extremities. Deep tendon reflexes are 1+ bilateral upper and lower extremities and Babinski is absent bilaterally. There was no extinction noted on double simultaneous stimulation. Coordination is
intact by finger to nose bilaterally.
Lab Results: See below.
Neuro Imaging:
1. CT Head 10/10/23: There are no acute intracranial abnormalities. There is moderate diffuse cortical atrophy with moderate nonspecific white matter changes as described above. There is an old 2 mm lacunar infarct in the head of the caudate on the
right. Aspect score: 10.
Differentials for the patient's presentation include:
1. Myoclonus and some concern for breakthrough partial seizure producing change in speech and dizziness, in the setting of several days of emesis.
2. Orthostatic hypotension possibly producing symptomatology.
3. Low concern for TIA or stroke.
Patient has the following risk factors for their symptoms: Seizure disorder, vomiting, hx lacunar stroke, HTN, Afib, age
IV Tenecteplase/IAT candidacy: Not a candidate due to lack of focal symptoms supportive of stroke, unclear diagnosis, NIHSS <6.
Recommendations:
-Carbamazepine and levetiracetam levels ordered/pending.
-Increase lacosamide to 150mg BID, keep carbamazepine and levetiracetam at home dosages for now.
-Check orthostatic vital signs.
-Coumadin management per primary team and GI.
-Do not see a role for further neurological imaging at this time.
-PT/OT/ST evaluations.
-DVT prophylaxis.
-Will follow pending results. Please contact our Neurology service with any questions/concerns.
Discussed patient care with: Dr. Edouard, the patient, patient's
NIH Stroke Score
Subsequent NIH Scale
Date of Subsequent NIH Scale: 10/10/23
Time of Subsequent NIH Scale: 11:45
NIH Stroke Score
Level of Consciousness: 0 - Alert
LOC Questions: 0-Answers both correctly
LOC Commands: 0-Performs both correctly
Best Horizontal Gaze: 0-Normal
Visual Brandt: 0=Normal, no visual loss
Facial Palsy: 0=Normal, symmetrical
Motor - Right Arm: 0=No drift 10 seconds
Motor - Left Arm: 0=No drift 10 seconds
Motor - Right Le-No drift 5 seconds
Motor - Left Le-No drift 5 seconds
Limb Ataxia: 0-Absent
Sensation: 0-Normal
Best Language: 0-No aphasia
Dysarthria: 1-Mild slurring
Extinction and Inattention: 0-No abnormality
Total Score:: 1
Vital Signs and Labs
-
Vital Signs and Labs:
Vital Signs
Temp Pulse Resp BP Pulse Ox
98.3 F 59 17 146/70 98
10/10/23 07:29 10/10/23 11:16 10/10/23 11:16 10/10/23 11:16 10/10/23 10:58
Lab Results
10/10/23 03:36
10/10/23 03:36
PT 32.2 Sec (11.4-14.6) H 10/10/23 02:00
INR 3.14 10/10/23 02:00
Sodium 133 mmol/L (135-145) L 10/10/23 03:36
Potassium 4.0 mmol/L (3.5-5.1) 10/10/23 03:36
BUN 41 mg/dl (9-20) H 10/10/23 03:36
Glucose 107 mg/dl (70-99) H 10/10/23 03:36
Calcium 8.8 mg/dl (8.4-10.2) 10/10/23 03:36
Medications
-
Active Medications
Generic Name Dose Route Start Last Admin
Trade Name Freq PRN Reason Stop Dose Admin
Acetaminophen 650 mg 10/09/23 06:02
Acetaminophen 325 Mg Tablet PO 11/06/23 06:01
Q4HPRN PRN
Mild Pain / Temp > 101
Carbamazepine 600 mg 10/09/23 08:00 10/10/23 08:58
Carbamazepine 200 Mg Tablet PO 11/06/23 07:59 600 mg
BID VIRAJ Administration
Clonidine HCl 0.2 mg 10/11/23 08:00
Clonidine 0.2 Mg Patch TRANSDERM 11/08/23 07:59
WE VIRAJ
Furosemide 40 mg 10/09/23 08:00 10/09/23 09:03
Furosemide 40 Mg Tablet PO 11/06/23 07:59 40 mg
DAILY VIRAJ Administration
Labetalol HCl 600 mg 10/09/23 08:00 10/10/23 09:03
Labetalol 200 Mg Tablet PO 11/06/23 07:59 Not Given
BID VIRAJ
Lacosamide 150 mg 10/10/23 20:00
Lacosamide (Vimpat) 50 Mg Tablet PO 11/07/23 19:59
BID VIRAJ
Levetiracetam 1,500 mg 10/09/23 08:00 10/10/23 08:58
Levetiracetam 500 Mg Regular Release Tablet PO 11/06/23 07:59 1,500 mg
BID VIRAJ Administration
Lorazepam 2 mg 10/09/23 06:02
Lorazepam 2 Mg/Ml Vial IV 11/06/23 06:01
Q4HPRN PRN
Seizure activity
Minoxidil 10 mg 10/09/23 08:00 10/10/23 08:59
Minoxidil 10 Mg Tablet PO 11/06/23 07:59 10 mg
BID VIRAJ Administration
Pantoprazole Sodium 40 mg 10/10/23 09:00 10/10/23 08:58
Pantoprazole 40 Mg Delayed Release Tablet PO 11/07/23 08:59 40 mg
DAILY VIRAJ Administration
Polyethylene Glycol 17 grams 10/10/23 09:00 10/10/23 09:03
Polyethylene Glycol Powder 17 Grams Packet PO 11/07/23 08:59 17 grams
DAILY VIRAJ Administration
Prochlorperazine Edisylate 5 mg 10/09/23 06:02
Prochlorperazine 10 Mg/2 Ml Vial IV 11/06/23 06:01
Q6HPRN PRN
Nausea
Sodium Chloride 0 flush 10/09/23 07:00
Sodium Chloride 0.9% (Flush) Syringe IV 11/06/23 06:59
PER PROTOCOL VIRAJ
Sodium Chloride 1 ml 10/09/23 06:20
Nss (Pf) 10 Ml Vial For Ativan 2 Mg Dose IV 11/06/23 06:19
Q4HPRN PRN
IV LORAZEPAM DILUTION
Home Medications
Medication Instructions Recorded
clonidine 0.3 mg/24 hr weekly 0.3 mg transdermal WE Blood 01/22/23
transdermal patch Pressure
minoxidil 10 mg tablet 10 mg PO BID Blood Pressure 01/22/23
cyanocobalamin (vitamin B-12) 1,000 mcg PO DAILY #30 tabs 02/13/23
1,000 mcg tablet
levetiracetam 500 mg tablet 1,500 mg PO BID #180 tabs 02/13/23
pantoprazole 40 mg tablet,delayed 40 mg PO DAILY #30 tabs 02/13/23
release
labetalol 200 mg tablet 600 mg PO BID Blood Pressure 02/27/23
carbamazepine 200 mg 600 mg PO BID Seizures 03/01/23
tablet,extended release,12 hr
lacosamide 100 mg tablet (Vimpat) 100 mg PO BID Seizures 03/01/23
furosemide 40 mg tablet 40 mg PO DAILY 30 days #30 tabs 08/28/23
warfarin 2.5 mg tablet (Jantoven) 7.5 mg PO QHS Blood Clot 10/09/23
Prevention/Tx

Documented by User: Edward Edouard MD 10/10/23 13:17
Consultation - Neurology 4
-
CONSULTING PHYSICIAN: Edward Edouard MD
REFERRING PHYSICIAN: Hospitalists/Dr. Bryant
DICTATED BY: ANNE Sebastian
DATE/TIME OF REQUEST: 10/10/23
DATE/TIME OF CONSULTATION: 10/10/23
Reason for Consultation: Stroke Alert
History of Present Illness:
This is an 83-year-old male who has presented to the hospital on 10/09/23 with report of nausea, vomiting, and dark red emesis starting on 10/07/23 following a dental procedure/amoxicillin usage last week. He was recently diagnosed with Afib in
July 2023 and started on Coumadin at that time. INR 3.24 on arrival and stool is heme positive. Patient is known to our Neurology service from several encounters in the past for seizure disorder.
From previous evaluation by Dr. Edouard on 11/09/21:
'Abrupt onset of recurrent change in mental status. Patient has been evaluated by our service Due to recurrent episodes of change in mental status since 2016. Patient has a history of generalized tonic-clonic seizures presumed to be secondary to
meningitis at age 4. The last episode of generalized tonic-clonic movements was described as taking place in 2014. The patient has also been experiencing cognitive decline since 2014. He is followed by a local neurologist at [place]. Since 2016,
the patient has undergone 5 MRIs of the brain which have shown evolution since 2015 in the form of additional intraparenchymal basal ganglia and right temporal changes including microhemorrhages and lacunar infarcts. Patient is also had documented a
right internal capsule and left frontal lacunar infarcts by his most recent MRI of the brain performed in October 2021.
Patient has undergone 6 EEGs since 2016 ranging from 3 per second spike and wave discharges to diffuse slowing demonstrated as of November 01, 2021 he has undergone a 24 hour EEG most recently in February 2020 which continued to show 3 per second spike
and wave discharges intermittently.'
This morning (10/10/23), patient was getting 'washed up' around 1130 when he reports he stood up and felt 'woozy.' Nursing staff noted that his speech was slurred, his left face appeared droopy, and he was having jerking movements in his arms and
tongue, prompting them to call a stroke alert. CT head was obtained and is negative for any acute abnormalities. Patient currently feels back to his baseline. Speech is mildly dysarthric, which his reports is his baseline. NIHSS is 1 for
dysarthria. Myoclonic movements are observed in his jaw, tongue, and left arm. He denies any headache, vision changes, swallowing difficulty, numbness, weakness, nausea, chest pain, palpitations, and shortness of breath. His last seizure was at
in January 2023. He has been compliant with his carbamazepine 600mg BID, lacosamide 100mg BID, and levetiracetam 1500mg BID but he did have several days of emesis recently.
Past Medical History: Afib (Coumadin), seizure disorder since meningitis at age 4, R internal capsule and left frontal lacunar infarcts and microhemorrhages, dementia, RUL adenocarcinoma s/p resection, CHF, aortic stenosis, HTN, HLD, COREY
(noncompliant cpap), asthma, melanoma, colon polyps, CKD, iron deficiency anemia, cervical stenosis
Surgical History:� RUL lung resection 2015, melanoma excision
Family History:� Brother- Cerebral aneurysm
Social History:� No tobacco, alcohol, or illicit drug use.
Allergies:� Hydralazine, pollen
Home Medications:� See below.
Review of Symptoms:
Patient denies any fever, headache, chest pain, shortness of breath, GI or symptoms.
�Per the HPI.�All systems are reviewed negative except above.
Physical Exam:
The patient is afebrile, abdomen is nondistended, breathing is unlabored, skin is warm and dry, no edema.
NIH Stroke Scale:
I performed the NIH stroke scale on the patient on 10/10/23 at 1145. The patient scored 0 points on the NIH stroke scale assessment.
Neurologic Examination:
The patient is awake, alert and oriented x 3. He is able to follow commands and answer questions appropriately. There is no aphasia. Speech is mildly dysarthric. On cranial nerve assessment, pupils are 3 mm bilateral, round and reactive to light
and accommodation. Visual brandt are full. Extraocular movements are intact. Facial sensations are intact and bilaterally symmetrical, there is no facial asymmetry. Hearing is intact bilaterally to normal conversation volume. Tongue palate and uvula
are midline. Sternocleidomastoid strengths are full bilaterally. Motor strengths are 5/5 bilateral upper and lower extremities on medical research Dunlap scale. There is no drift. There is myoclonus in the jaw, tongue, and left arm. Low amplitude
semirhythmic tremor noted in distal bilateral upper extremities. Deep tendon reflexes are 1+ bilateral upper and lower extremities and Babinski is absent bilaterally. There was no extinction noted on double simultaneous stimulation. Coordination is
intact by finger to nose bilaterally.
Lab Results: See below.
Neuro Imaging:
1. CT Head 10/10/23: There are no acute intracranial abnormalities. There is moderate diffuse cortical atrophy with moderate nonspecific white matter changes as described above. There is an old 2 mm lacunar infarct in the head of the caudate on the
right. Aspect score: 10.
Differentials for the patient's presentation include:
1. Myoclonus and some concern for breakthrough partial seizure producing change in speech and dizziness, in the setting of several days of emesis.
2. Orthostatic hypotension possibly producing symptomatology.
3. Low concern for TIA or stroke.
Patient has the following risk factors for their symptoms: Seizure disorder, vomiting, hx lacunar stroke, HTN, Afib, age
IV Tenecteplase/IAT candidacy: Not a candidate due to lack of focal symptoms supportive of stroke, unclear diagnosis, NIHSS <6.
Recommendations:
-Carbamazepine and levetiracetam levels ordered/pending.
-Increase lacosamide to 150mg BID, keep carbamazepine and levetiracetam at home dosages for now.
-Check orthostatic vital signs.
-Coumadin management per primary team and GI.
-Do not see a role for further neurological imaging at this time.
-PT/OT/ST evaluations.
-DVT prophylaxis.
-Will follow pending results. Please contact our Neurology service with any questions/concerns.
Discussed patient care with: Dr. Edouard, the patient, patient's
NIH Stroke Score
NIH Stroke Score
Total Score:: 1
[2023-10-10] MEDS: VIMPAT 50 MG PO (13:07)
[2023-10-10 15:04] LABS: Tegretol (Carbamazepine) 13.7 ug/ml (4-12)
--- NOTE | 2023-10-10 18:09 | PTCARENOTE ---
Patient was tired after event earlier today. Patient is now awake and alert, incontinent of bladder in bed. Asking for dinner. Vital signs have been stable, denying pain when asked.
[2023-10-10] MEDS: VIMPAT 150 MG PO (20:00)
[2023-10-10] MEDS: TRANDATE 600 MG PO (20:01)
--- NOTE | 2023-10-10 21:00 | PTCARENOTE ---
Addendum entered by June Lopez RN 10/11/23 01:22:
Pt appears to have sleep apnea. Pt HOB was >30 degrees and was mouth breathing w/ periods of stop breathing. Pt SaO2 as low 71% in RA lasting about 30-60 sec. Pt Saturates 95% in RA when awake. Pt had multiple episodes of desaturating. Pt was placed
on 2L HS saturating 96-99%
Original Note:
Assume care from AM RN. VSS, afebrile. AAOX3, forgetful, and anxious at times. WRANGELL. Gen weakness. NSR to SB in the monitor. Traces of BLLE. Lung sounds diminished at the bases, SaO2 96% RA. + BS. Pt will be NPO after midnight. pt appears comfortable
in bed and call urban within reach.
[2023-10-11] VITALS (19 sets, daily range): BP systolic 114–167; BP diastolic 48–71; PULSE 50–60; O2SAT 98; BMI 23.2
[2023-10-11 05:06] LABS: % Basophils 0.5 % (0-2); % Eosinophils 2.8 % (0-6); % Immature Granulocytes 0.2 % (0-0.5); % Lymphocytes 25.9 % (20.5-51.1); % Monocytes 14.3 % (1.7-9.3); % Neutrophils 56.3 % (42.2-75.2); Absolute Eosinophils 0.2 10^3/uL (0-0.7); Absolute Lymphocytes 1.5 10^3/uL (1.2-3.4); Absolute Monocytes 0.8 10^3/uL (0.1-0.6); Absolute Neutrophils 3.3 10^3/uL (1.4-6.5); Hemoglobin 9.2 g/dL (13.0-18.0); Mean Corp Hgb Conc. 35.4 g/dL (33.0-37.0); Mean Corpuscular Hgb 34.2 pg (27.0-31.0); Mean Corpuscular Volume 96.7 fL (80.0-94.0); Mean Platelet Volume 10.8 fL (7.4-10.4); Nucleated Red Blood Cells % 0 % (-); Platelet Count 166 10^3/uL (130-400); Red Blood Cell Count 2.69 10^6/uL (4.70-6.10); Red Cell Dist. Width 11.8 % (11.5-14.5); White Blood Cell Count 5.8 10^3/uL (4.8-10.8)
[2023-10-11 05:12] LABS: INR 2.53; PT 27.1 Sec (11.4-14.6)
[2023-10-11 05:45] LABS: ALT (SGPT) 21 U/L (0-50); AST (SGOT) 30 U/L (17-59); Albumin 3.8 g/dl (3.5-5.0); Alkaline Phosphatase 104 U/L (38-126); Blood Urea Nitrogen 37 mg/dl (9-20); Calcium 9.2 mg/dl (8.4-10.2); Carbon Dioxide 30 mmol/L (22-30); Chloride 99 mmol/L (98-107); Estimated Creatinine Clearance 50 ml/min; Glucose 95 mg/dl (70-99); Potassium 3.7 mmol/L (3.5-5.1); Sodium 135 mmol/L (135-145); Total Bilirubin 0.5 mg/dl (0.2-1.3); Total Protein 6.7 g/dl (6.3-8.2); eGFR > 60.00
[2023-10-11 09:10] LABS: Tegretol (Carbamazepine) 5.2 ug/ml (4-12)
[2023-10-11] MEDS: LONITEN 10 MG PO ×2 (09:32→19:30)
[2023-10-11] MEDS: TEGRETOL 600 MG PO ×2 (09:32→19:30)
[2023-10-11] MEDS: PROTONIX 40 MG PO (09:32)
[2023-10-11] MEDS: TRANDATE PO (09:32)
[2023-10-11] MEDS: KEPPRA 1500 MG PO ×2 (09:33→19:30)
[2023-10-11] MEDS: MIRALAX 17 GRAMS PO (09:33)
[2023-10-11] MEDS: VIMPAT 150 MG PO ×2 (09:33→19:29)
[2023-10-11] MEDS: CATAPRES-TTS-2 0.200000000000000011 MG TRANSDERM (10:07)
--- NOTE | 2023-10-11 10:30 | PTCARENOTE ---
Assumed care of patient at beginning of this shift from previous RN; NPO for UGI. Patient initially refused to go for testing stating no one had talked to him. Dr Bryant and Dr Garsia made aware. Patient's came in and spoke with patient; he was
then agreeable to go. Dept made aware and patient transferred. See worklist for full assessment and vital signs; see MAR for med administration.
--- NOTE | 2023-10-11 12:45 | W.PN.HOSP.TC ---
Today's Communication/Plan
-
Monitor vitals
See plan
Upper GI series today
If no further procedures planned then will start Coumadin
Monitor INR
Diet per GI
Monitor hemoglobin
Assessment / Plan
Assessment / Plan
General: no acute distress
HEENT: Moist mucous membranes and PERRLA
Respiratory: Clear; No Wheezes, Rales or Rhonchi
Cardiac: S1/S2, Regular Rhythm and Murmur (II/ SENTHIL)
GI: Soft, Non Tender, Non Distended and Normal Bowel Sounds
Musculoskeletal: No Clubbing, No Cyanosis and No Edema
Neuro: Awake and Alert
Intractable N/V
�- Suspect acute gastritis secondary to recent abx use / amoxicillin.
�- Last dose was > 24 hours ago - would remain off of this medication.
�- Supportive care including antiemetics.
�- Follow for any new / worsening symptoms.
�
Heme Positive Stool
Chronic Anemia
�- Some reports of dark red vomitus per ED / spouse.
�- Patient cannot confirm this to me.
�- Occult blood positive stool in the ED.
�- Hgb is higher than his typical baseline (though lower than his most recent check - which seems an anomaly).
�- Chronic baseline Hgb has been 7-9 g/dL
�- Transfuse if needed for Hgb < 7, worsening symptoms or ongoing blood loss.
�- GI following
PPI, continue with LRD when ok with GI after UGI series; GI discussed scope in detail with the patient and family and plan now for conservative measures. Upper GI series today
�- Hold further amoxicillin / treat gastritis as noted above.
Coumadin Coagulopathy
Paroxysmal Atrial Fibrillation
�- INR today is 2.5 with last ortiz of Coumadin being 7.5mg evening 10/07
�-If no further procedures planned from GI then will restart Coumadin however at 5 mg
�- Consider active reversal if any hemodynamic changes, further bleeding, etc. no obvious signs of bleeding
�- Maintaining NSR at present.
follows with Dr Busby outpatient
Chronic HFmrEF
Mild - Moderate Aortic Stenosis
�- Stable.� No evidence of acute volume overload, edema, etc.
�- Continue current diuretic dosing, CV med regimen.
�- Follow I/Os, daily weights, etc.
hold lasix for now
Abrupt change in mental status 10/09
CT scan negative for any hemorrhage, shows chronic infarct
Evaluated by neurology, Vimpat increased to 150 mg twice daily. Also on Keppra. Vimpat level was increased 10/09 however now normal
�- Monitor for any breakthrough seizure activity.
Follows up with Dr. Correia outpatient
keppra level pending
LORIE on CKD
check Ua wnl
bladder scan
hold lasix
Mild hyponatremia
Monitor
Multidrug Resistant Hypertension
�- Continue current med regimen with holding parameters. dec clonidine to 0.2 as has bradycardia
periods of bradycardia
monitor
hx of CVA
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
�- Continue PAP therapy during hospital stay.
DVT Prophylaxis:� SCDs; supratherapeutic INR
Code Status: � Full
I spent a total of 52 minutes with the patient or on the floor. More than 50% of this time involved counseling and coordination of care.
Anticipated Discharge: 24 - 48 hours
Subjective/Interval History
-
Date of Service: October 11, 2023
denies pain
Objective Data
-
Labs:
Laboratory Results
10/11/23
04:38
WBC 5.8
Hgb 9.2 L
Hct 26.0 L
Plt Count 166
PT 27.1 H
INR 2.53
Sodium 135
Potassium 3.7
Chloride 99
Carbon Dioxide 30
BUN 37 H
Creatinine 1.2
Glucose 95
Calcium 9.2
Total Bilirubin 0.5
AST 30
ALT 21
Alkaline Phosphatase 104
Vital Signs:
Vital Signs
Temp Pulse Resp BP Pulse Ox
98 F 51 11 145/57 99
10/11/23 07:43 10/11/23 10:00 10/11/23 10:00 10/11/23 10:07 10/11/23 10:00
I&O
10/10/23 10/11/23 10/12/23
06:59 06:59 06:59
Intake Total 996 / 996 360 / 360
Output Total 575 / 575 435 / 435
Balance 421 / 421 -75 / -75
--- NOTE | 2023-10-11 14:38 | W.PN.GI.CBS2 ---
Addendum entered and electronically signed by Johana Garsia DO 10/11/23 16:07:
Patient seen and examined independently of ANNE. I agree with her note with my additions below
Robin is an 83-year-old male today sitting up in the chair doing well. He underwent the upper GI series this morning with the read pending.
He is tolerating a diet very well with no nausea or vomiting. His hemoglobin has been stable in the nines with a therapeutic INR of 2.53 for his atrial fibrillation and CHF
We started a PPI upon admission which I would continue upon discharge
Will await the official read on the upper GI series. I did review it myself with no significant pathology but will wait for the official read
I reviewed his labs from today which show a stable hemoglobin of 9.2 over the past 3 days
Overall, I discussed with the patient and the at bedside that we will hold off on any endoscopic therapy in the setting of stable hemoglobin and him being asymptomatic. They are comfortable with those decisions
Original Note:
Today's Communication / Plan
-
etiology of nausea/vomiting related to recent Amoxicillin use vs other no further vomiting since admission
dark emesis related to recent dental work vs UGI bleed( MW tear with recent vomiting, esophagitis, PUD with couple dose of Motrin with dental work) vs other
s/p UGI results pending
hbg stable 9.2 today
iron studies in August without iron deficiency(iron 151, TIBC 263, % sat 57, ferritin 578)
cont to trend hbg transfuse <7
cont low residue diet
large stool today cont Miralax daily
cont Protonix PO daily
Coumadin hold --INR 3.14 this am per family recent increased OP dosing
add Miralax daily as patient takes at home and no stools since admission
updated at bedside
Assessment / Plan
-
Pt is a 83yo with hx seizure disorder, asthma, lung CA with lobectomy, colon polyps, sleep apnea, cognitive decline, CKD, chronic anemia with admission in July with new afib and CHF with start of Coumadin and Furosemide. Pt was seen during
that admission by GI with anemia but hbg was in chronic range and noted heme neg and recommended to consider hematology evaluation. He did have heme follow up and due for bone marrow bx next week. He has recent dental work last week with removal
of bridge and tooth extraction. Post procedure was started on Amoxicillin and began with nausea and vomiting. In ER noted with dark emesis On admission hbg 10 with last hbg 11.4 09/26/23 but range of 7-8 over last year. BUN 47 and 1.4 higher than
prior range with INR 3.24 with Coumadin use and noted heme + in ER. No hx EGD. Last colonoscopy 2015 with diverticulosis, adenomatous and HP polyps. few dose of Motrin used with recent dental work.
-dark emesis on admission
-heme + stool
-hx chronic anemia due for bone marrow bx
-afib on Coumadin prior to admission
-recent dental work
-CHF with recent diuresis and wt loss
-chronic constipation on daily miralax
-bradicardia on exam
other medical problems:
-hx adenomatous and hyperplastic colon polyps
-seizure disorder
-asthma
-lung CA with lobectomy
-CKD
-cognitive decline
PLAN:
etiology of nausea/vomiting related to recent Amoxicillin use vs other no further vomiting since admission
dark emesis related to recent dental work vs UGI bleed( MW tear with recent vomiting, esophagitis, PUD with couple dose of Motrin with dental work) vs other
s/p UGI results pending
hbg stable 9.2 today
iron studies in August without iron deficiency(iron 151, TIBC 263, % sat 57, ferritin 578)
cont to trend hbg transfuse <7
cont low residue diet
large stool today cont Miralax daily
cont Protonix PO daily
Coumadin hold --INR 3.14 this am per family recent increased OP dosing
add Miralax daily as patient takes at home and no stools since admission
updated at bedside
Subjective
Subjective
Date of Service: October 11, 2023
low residue diet, 10/07 last stool s/p UGI
Objective
Data Reviewed
Laboratory Data:
Laboratory Results
10/11/23 04:38
10/11/23 04:38
Laboratory Results
PT 27.1 Sec (11.4-14.6) H 10/11/23 04:38
INR 2.53 10/11/23 04:38
Total Bilirubin 0.5 mg/dl (0.2-1.3) 10/11/23 04:38
AST 30 U/L (17-59) 10/11/23 04:38
ALT 21 U/L (0-50) 10/11/23 04:38
Alkaline Phosphatase 104 U/L (38-126) 10/11/23 04:38
Lipase 84 U/L (23-300) 10/09/23 02:00
Vital Signs and I&O:
Vital Signs
Temp Pulse Resp BP Pulse Ox
98 F 49 15 119/48 100
10/11/23 07:43 10/11/23 12:00 10/11/23 12:00 10/11/23 12:00 10/11/23 12:00
I&O
10/10/23 10/11/23 10/12/23
06:59 06:59 06:59
Intake Total 996 / 996 360 / 360
Output Total 575 / 575 435 / 435
Balance 421 / 421 -75 / -75
--- NOTE | 2023-10-11 15:58 | VNURNOTE ---
[facility] resumption of care completed in [facility] after review of chart and discussion with patient and . Patient confirmed having [facility] contact number.
[2023-10-11] MEDS: TRANDATE 600 MG PO (19:29)
--- NOTE | 2023-10-11 22:20 | RESPNOTE ---
nocturnal study started; pt on ra
[2023-10-12] VITALS (17 sets, daily range): BP systolic 99–157; BP diastolic 45–91; PULSE 56–59; O2SAT 96; BMI 23.3
[2023-10-12 05:25] LABS: % Basophils 0.5 % (0-2); % Eosinophils 3.2 % (0-6); % Immature Granulocytes 0.2 % (0-0.5); % Lymphocytes 27.2 % (20.5-51.1); % Monocytes 12.5 % (1.7-9.3); % Neutrophils 56.4 % (42.2-75.2); Absolute Eosinophils 0.2 10^3/uL (0-0.7); Absolute Lymphocytes 1.5 10^3/uL (1.2-3.4); Absolute Monocytes 0.7 10^3/uL (0.1-0.6); Absolute Neutrophils 3.2 10^3/uL (1.4-6.5); Hematocrit 25.9 % (39.0-52.0); Hemoglobin 9.2 g/dL (13.0-18.0); Mean Corp Hgb Conc. 35.5 g/dL (33.0-37.0); Mean Corpuscular Hgb 34.2 pg (27.0-31.0); Mean Corpuscular Volume 96.3 fL (80.0-94.0); Mean Platelet Volume 10.8 fL (7.4-10.4); Nucleated Red Blood Cells % 0 % (-); Platelet Count 167 10^3/uL (130-400); Red Blood Cell Count 2.69 10^6/uL (4.70-6.10); Red Cell Dist. Width 11.9 % (11.5-14.5); White Blood Cell Count 5.6 10^3/uL (4.8-10.8)
[2023-10-12 05:30] LABS: INR 1.72; PT 20.3 Sec (11.4-14.6)
[2023-10-12 05:44] LABS: ALT (SGPT) 21 U/L (0-50); AST (SGOT) 28 U/L (17-59); Albumin 3.7 g/dl (3.5-5.0); Alkaline Phosphatase 94 U/L (38-126); Blood Urea Nitrogen 33 mg/dl (9-20); Calcium 9.2 mg/dl (8.4-10.2); Carbon Dioxide 29 mmol/L (22-30); Chloride 101 mmol/L (98-107); Estimated Creatinine Clearance 54 ml/min; Glucose 96 mg/dl (70-99); Potassium 4.2 mmol/L (3.5-5.1); Sodium 137 mmol/L (135-145); Total Bilirubin 0.6 mg/dl (0.2-1.3); Total Protein 6.6 g/dl (6.3-8.2); eGFR > 60.00
--- NOTE | 2023-10-12 07:51 | PTCARENOTE ---
Pt now NPO for poss EGD. May have meds , pt aware
[2023-10-12] MEDS: KEPPRA 1500 MG PO ×2 (08:09→20:08)
[2023-10-12] MEDS: PROTONIX 40 MG PO (08:10)
[2023-10-12] MEDS: TEGRETOL 600 MG PO ×2 (08:10→20:08)
[2023-10-12] MEDS: VIMPAT 150 MG PO ×2 (08:11→20:07)
[2023-10-12] MEDS: LONITEN PO (08:12)
[2023-10-12] MEDS: TRANDATE PO ×2 (08:14→20:09)
[2023-10-12] MEDS: MIRALAX 17 GRAMS PO (08:14)
--- NOTE | 2023-10-12 08:50 | W.PN.GI.CBS2 ---
Today's Communication / Plan
-
Okay for diet, n.p.o. after midnight for EGD
Assessment / Plan
-
Pt is a 83yo with hx seizure disorder, asthma, lung CA with lobectomy, colon polyps, sleep apnea, cognitive decline, CKD, chronic anemia with admission in July with new afib and CHF with start of Coumadin and Furosemide. Pt was seen during
that admission by GI with anemia but hbg was in chronic range and noted heme neg and recommended to consider hematology evaluation. He did have heme follow up and due for bone marrow bx next week. He has recent dental work last week with removal
of bridge and tooth extraction. Post procedure was started on Amoxicillin and began with nausea and vomiting. In ER noted with dark emesis On admission hbg 10 with last hbg 11.4 09/26/23 but range of 7-8 over last year. BUN 47 and 1.4 higher than
prior range with INR 3.24 with Coumadin use and noted heme + in ER. No hx EGD. Last colonoscopy 2015 with diverticulosis, adenomatous and HP polyps. few dose of Motrin used with recent dental work.
-dark emesis on admission
-heme + stool
-hx chronic anemia due for bone marrow bx
-afib on Coumadin prior to admission
-recent dental work
-CHF with recent diuresis and wt loss
-chronic constipation on daily miralax
-bradicardia on exam
other medical problems:
-hx adenomatous and hyperplastic colon polyps
-seizure disorder
-asthma
-lung CA with lobectomy
-CKD
-cognitive decline
10/11/2023 upper GI series suspected nonobstructing mucosal-based mass in the left side of the esophagus
PLAN:
etiology of nausea/vomiting related to recent Amoxicillin use vs other no further vomiting since admission
dark emesis related to recent dental work vs UGI bleed( MW tear with recent vomiting, esophagitis, PUD with couple dose of Motrin with dental work) vs other
-Anemia without iron deficiency -will undergo EGD tomorrow; discussed with and patient at bedside
With over the speaker phone
-Continue to hold warfarin
-Okay for diet today, n.p.o. after midnight
-If etiology found, doubt he would need bone marrow biopsy but will discuss with hematology after endoscopy
Total Time Spent with Patient (in minutes): 20
Subjective
Subjective
Date of Service: October 12, 2023
Patient without complaints
Objective
Data Reviewed
Laboratory Data:
Laboratory Results
10/12/23 04:36
10/12/23 04:36
Laboratory Results
PT 20.3 Sec (11.4-14.6) H 10/12/23 04:36
INR 1.72 10/12/23 04:36
Total Bilirubin 0.6 mg/dl (0.2-1.3) 10/12/23 04:36
AST 28 U/L (17-59) 10/12/23 04:36
ALT 21 U/L (0-50) 10/12/23 04:36
Alkaline Phosphatase 94 U/L (38-126) 10/12/23 04:36
Lipase 84 U/L (23-300) 10/09/23 02:00
Vital Signs and I&O:
Vital Signs
Temp Pulse Resp BP Pulse Ox
98.3 F 58 11 109/49 95
10/12/23 07:33 10/12/23 08:12 10/12/23 06:00 10/12/23 08:12 10/12/23 06:00
I&O
10/11/23 10/12/23 10/13/23
06:59 06:59 06:59
Intake Total 360 / 360 240 / 240
Output Total 435 / 435
Balance -75 / -75 240 / 240
Physical Exam
Physical Exam
HEENT: Anicteric
Pulmonary: Clear
GI: Soft and Non Distended
Neuro: Non Focal
--- NOTE | 2023-10-12 11:20 | PTCARENOTE ---
Earlier this am while working with PT , pt became what he called feeling karen DR Pennington examined pt , Dr Correia examined pt no new orders at this time.
--- NOTE | 2023-10-12 11:25 | W.PN.NEURO.1 ---
Today's Communication / Plan
-
-Would keep the existing antiseizure medication regimen for today, I feel that the event today was unlikely a seizure and further changes in his medication I do not feel are necessary and may produce further adverse effects
-Acceptable for proceeding with EGD tomorrow with no specific recommendations other than continuing on his antiseizure drug regimen
-Will check a carbamazepine level on 10/13
-Keep in mind potential for orthostasis
Will follow peripherally
Neuro Assessment/Plan
Assessment
83-year-old male with a past medical history of known epilepsy presenting the hospital with nausea and vomiting, suspicious for gastritis.
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
On patient had stroke alert due to left facial droop and jerking movements of the arms and tongue along with dysarthria he was quickly back to baseline after this, appeared to have myoclonic movements in the jaw tongue and left arm.
Patient did have significant amount of emesis prior to admission, he had otherwise been compliant with antiseizure medication regimen.
Event on 10/11 does not sound like seizure to me and is not consistent with the patient's previous seizures which have generally been generalized tonic-clonic or a focal seizure with loss of awareness.
and patient note chronic tremor has improved
Subjective/Objective
Subjective Data
Date of Service: October 12, 2023
Today was sitting up straight in bed and had feeling of some whooziness and feeling unwell, in speaking with nursing, patient and his he did not lose consciousness, no jerking movements seen, was not typical of his usual seizures which had been
either grand mal or more of a staring unaware type seizure in the past, currently feeling fine
Objective Data
Vital Signs
Temp Pulse Resp BP Pulse Ox
98.3 F 58 19 157/66 96
10/12/23 07:33 10/12/23 10:28 10/12/23 10:28 10/12/23 10:28 10/12/23 10:28
Lab Results
10/12/23 04:36
10/12/23 04:36
PT 20.3 Sec (11.4-14.6) H 10/12/23 04:36
INR 1.72 10/12/23 04:36
Sodium 137 mmol/L (135-145) 10/12/23 04:36
Potassium 4.2 mmol/L (3.5-5.1) 10/12/23 04:36
BUN 33 mg/dl (9-20) H 10/12/23 04:36
Glucose 96 mg/dl (70-99) 10/12/23 04:36
Calcium 9.2 mg/dl (8.4-10.2) 10/12/23 04:36
Patient Allergies
hydralazine Allergy (Verified 10/09/23 01:59)
Unknown
pollen extracts Allergy (Verified 10/09/23 01:59)
nasal symptoms
Review of Systems
-
History Source: Patient
All other systems: Reviewed and negative
Constitutional: No Symptoms
EENT: No Symptoms Reported
Respiratory: No Symptoms
Cardiac: No Symptoms
Abdomen/GI: No Symptoms
Genitourinary: No Symptoms
Musculoskeletal: No Symptoms
Skin: No Symptoms
Neuro: No Symptoms
Endocrine: No Symptoms
Hematologic / Lymphatic: No Symptoms
Allergy / Immunology: No Symptoms
Physical Exam
-
General: Comfortable
Eyes: No Ptosis
HEENT: Normocephalic
Neck: No Bruits Bilaterally
Respiratory: Clear to Auscultation
Cardiac: Regular Rhythm
GI: Normal Bowel Sounds
Skin: Unremarkable
Extremities: No Clubbing
Psych: Unremarkable
Extended Neurological Exam
Mood & Affect: Mood Unremarkable and Affect Unremarkable
Attention Span & Concentration: Awake, Alert and Interactive
Memory: Able to Recall
Tremor: Distal (Bilateral distal tremor)
Involuntary Movement: Asterixis
Speech: Quality Unremarkable and Quantity Unremarkable; Negative Expressive Aphasia, Receptive Aphasia or Dysarthric
Cranial Nerve II: Left Eye: Pupillary Reactivity Unremarkable, Pupillary Size Unremarkable and Visual Brandt Intact
Cranial Nerve II: Right Eye: Pupillary Reactivity Unremarkable, Pupillary Size Unremarkable and Visual Brandt Intact
Cranial Nerves III, IV, : Extraocular Movement: Extraocular Movement Full in all Directions
Cranial Nerve VII: Facial Symmetry: Normal Facial Symmetry
Muscle Strength, Overall: Full Throughout
Muscle Bulk & Tone: Bulk Unremarkable
Pronator Drift: No Drift in Upper Extremities
Deep Tendon Reflexes: Trace Throughout
Touch Sensation: Unremarkable
Coordination: Tjixzo-svel-yvxvyu Testing Unremarkable
Data Reviewed
-
Labs: Report Reviewed
--- NOTE | 2023-10-12 13:05 | W.PN.HOSP.TC ---
Today's Communication/Plan
-
Monitor vital sign
See plan
Continue antiseizure medications
Plan for EGD tomorrow
Continue to hold Coumadin, restart when okay with GI
Assessment / Plan
Assessment / Plan
General: no acute distress
HEENT: Moist mucous membranes and PERRLA
Respiratory: Clear; No Wheezes, Rales or Rhonchi
Cardiac: S1/S2, Regular Rhythm and Murmur (II/ SENTHIL)
GI: Soft, Non Tender, Non Distended and Normal Bowel Sounds
Musculoskeletal: No Clubbing, No Cyanosis and No Edema
Neuro: Awake and Alert
Intractable N/V
resolved
�- Suspect acute gastritis secondary to recent abx use / amoxicillin.
�- Last dose was > 24 hours ago - would remain off of this medication.
�- Supportive care including antiemetics.
�
Heme Positive Stool
Chronic Anemia
�- Some reports of dark red vomitus per ED / spouse.
�- Occult blood positive stool in the ED.
�- Hgb is higher than his typical baseline (though lower than his most recent check - which seems an anomaly).
�- Chronic baseline Hgb has been 7-9 g/dL
�- Transfuse if needed for Hgb < 7, worsening symptoms or ongoing blood loss.
�- GI following
PPI, continue with LRD when ok with GI after UGI series; GI discussed scope in detail with the patient and family and plan now for conservative measures. Upper GI series 10/10 with suspected nonobstructing mucosal-based mass in the left side of the
mid esophagus. Endoscopy 10/12
Coumadin Coagulopathy
Paroxysmal Atrial Fibrillation
�- INR today is 1.7 with last ortiz of Coumadin being 7.5mg evening 10/07
�-Restart Coumadin when okay with gastroenterology. Plan for endoscopy 10/12
�- Maintaining NSR at present.
follows with Dr Busby outpatient
Chronic HFmrEF
Mild - Moderate Aortic Stenosis
�- Stable.� No evidence of acute volume overload, edema, etc.
�- Continue current diuretic dosing, CV med regimen.
�- Follow I/Os, daily weights, etc.
hold lasix for now
Abrupt change in mental status 10/09
CT scan negative for any hemorrhage, shows chronic infarct
Evaluated by neurology, Vimpat increased to 150 mg twice daily. Also on Keppra. Vimpat level was increased 10/09 however now normal
�- Monitor for any breakthrough seizure activity.
Follows up with Dr. Correia outpatient, repeat episode 10/11. Neurology reconsulted. Per neurology would not make any change in antiseizure medication. Repeat Vimpat level 10/13
keppra level pending
orthostatic neg
LORIE on CKD
check Ua wnl
bladder scan
hold lasix
Mild hyponatremia
Monitor
Multidrug Resistant Hypertension
�- Continue current med regimen with holding parameters. dec clonidine to 0.2 as has bradycardia
periods of bradycardia
monitor
hx of CVA
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
�- Continue PAP therapy during hospital stay.
DVT Prophylaxis:� SCDs; restart when ok with GI
Code Status: � Full
I spent a total of 53 minutes with the patient or on the floor. More than 50% of this time involved counseling and coordination of care.
Anticipated Discharge: > 48 hours
Subjective/Interval History
-
Date of Service: October 12, 2023
denies pain
Objective Data
-
Labs:
Laboratory Results
10/12/23
04:36
WBC 5.6
Hgb 9.2 L
Hct 25.9 L
Plt Count 167
PT 20.3 H
INR 1.72
Sodium 137
Potassium 4.2
Chloride 101
Carbon Dioxide 29
BUN 33 H
Creatinine 1.1
Glucose 96
Calcium 9.2
Total Bilirubin 0.6
AST 28
ALT 21
Alkaline Phosphatase 94
Vital Signs:
Vital Signs
Temp Pulse Resp BP Pulse Ox
98.4 F 56 14 121/54 97
10/12/23 11:47 10/12/23 12:00 10/12/23 12:00 10/12/23 12:00 10/12/23 12:00
I&O
10/11/23 10/12/23 10/13/23
06:59 06:59 06:59
Intake Total 360 / 360 240 / 240
Output Total 435 / 435
Balance -75 / -75 240 / 240
--- NOTE | 2023-10-12 13:55 | PTCARENOTE ---
Pt ate lunch and states he is eelig much better
[2023-10-12] MEDS: LONITEN 10 MG PO (20:08)
--- NOTE | 2023-10-12 20:53 | PTCARENOTE ---
Received pt at change of shift. Pt AAOx3 at this time. Very pleasant. Discussed EGD scheduled for morning and need for NPO after midnight. Pt states he understands and is on board. pt offers no complaints at this time. Resting comfortably in
bed with call [place] in reach
[2023-10-13] VITALS (22 sets, daily range): BP systolic 15–164; BP diastolic 51–79; PULSE 58–61; BMI 23.8
[2023-10-13 01:25] LABS: Keppra (Levetiracetam) 61 ug/mL (10-40)
[2023-10-13 04:46] LABS: % Basophils 0.7 % (0-2); % Eosinophils 4.2 % (0-6); % Immature Granulocytes 0.5 % (0-0.5); % Lymphocytes 22.5 % (20.5-51.1); % Monocytes 11.5 % (1.7-9.3); % Neutrophils 60.6 % (42.2-75.2); Absolute Eosinophils 0.3 10^3/uL (0-0.7); Absolute Lymphocytes 1.4 10^3/uL (1.2-3.4); Absolute Monocytes 0.7 10^3/uL (0.1-0.6); Absolute Neutrophils 3.6 10^3/uL (1.4-6.5); Hematocrit 25.8 % (39.0-52.0); Hemoglobin 9.2 g/dL (13.0-18.0); Mean Corp Hgb Conc. 35.7 g/dL (33.0-37.0); Mean Corpuscular Hgb 33.9 pg (27.0-31.0); Mean Corpuscular Volume 95.2 fL (80.0-94.0); Mean Platelet Volume 10.6 fL (7.4-10.4); Nucleated Red Blood Cells % 0 % (-); Platelet Count 165 10^3/uL (130-400); Red Blood Cell Count 2.71 10^6/uL (4.70-6.10); Red Cell Dist. Width 12.2 % (11.5-14.5)
[2023-10-13 04:56] LABS: PT 17.3 Sec (11.4-14.6)
[2023-10-13 05:18] LABS: ALT (SGPT) 19 U/L (0-50); AST (SGOT) 24 U/L (17-59); Albumin 3.7 g/dl (3.5-5.0); Alkaline Phosphatase 90 U/L (38-126); Blood Urea Nitrogen 37 mg/dl (9-20); Calcium 9.1 mg/dl (8.4-10.2); Carbon Dioxide 30 mmol/L (22-30); Chloride 99 mmol/L (98-107); Estimated Creatinine Clearance 60 ml/min; Glucose 108 mg/dl (70-99); Potassium 4.2 mmol/L (3.5-5.1); Sodium 137 mmol/L (135-145); Total Bilirubin 0.4 mg/dl (0.2-1.3); Total Protein 6.5 g/dl (6.3-8.2); eGFR > 60.00
[2023-10-13] MEDS: KEPPRA 1500 MG PO ×2 (08:42→21:03)
[2023-10-13] MEDS: TEGRETOL 600 MG PO ×2 (08:42→21:02)
[2023-10-13] MEDS: VIMPAT 150 MG PO ×2 (08:43→21:04)
[2023-10-13] MEDS: TRANDATE 600 MG PO (08:44)
--- NOTE | 2023-10-13 11:11 | W.PN.UPDATE ---
Update Note
Progress Note Update
EGD done
Irregular z line- bx'd r/o douglas's
No mass in mid esophagus
Antral erythema bx'd r/o HP
Food in fundus/contrast material
SBBx'd r/o celiac
REC:
Resume diet
OK to resume coumadin
Await path
--- NOTE | 2023-10-13 11:40 | W.PN.HOSP.TC ---
Today's Communication/Plan
-
monitor vitals
see plan
start coumadin
monitor INR
monitor hgb
follow GI biopsy's
Assessment / Plan
Assessment / Plan
General: no acute distress
HEENT: Moist mucous membranes and PERRLA
Respiratory: Clear; No Wheezes, Rales or Rhonchi
Cardiac: S1/S2, Regular Rhythm and Murmur (II/ SENTHIL)
GI: Soft, Non Tender, Non Distended and Normal Bowel Sounds
Musculoskeletal: No Clubbing, No Cyanosis and No Edema
Neuro: Awake and Alert
Intractable N/V
resolved
�- Suspect acute gastritis secondary to recent abx use / amoxicillin.
�- Last dose was > 24 hours ago - would remain off of this medication.
�- Supportive care including antiemetics.
�
Heme Positive Stool
Chronic Anemia
�- Some reports of dark red vomitus per ED / spouse.
�- Occult blood positive stool in the ED.
�- Hgb is higher than his typical baseline (though lower than his most recent check - which seems an anomaly).
�- Chronic baseline Hgb has been 7-9 g/dL
�- Transfuse if needed for Hgb < 7, worsening symptoms or ongoing blood loss.
�- GI following
PPI, continue with LRD when ok with GI after UGI series; GI discussed scope in detail with the patient and family and plan now for conservative measures. Upper GI series 10/10 with suspected nonobstructing mucosal-based mass in the left side of the
mid esophagus. Endoscopy 10/12 with irregular Z-line, biopsied to rule out Alicia's, no mass in mid esophagus. Antral erythema biopsy to rule out H. pylori. Per GI resume regular diet and await for path. Okay to resume Coumadin
Coumadin Coagulopathy
Paroxysmal Atrial Fibrillation
�- INR today is 1.4 with last ortiz of Coumadin being 7.5mg evening 10/07; resume Coumadin 10/12 at 6 mg
�- Maintaining NSR at present.
follows with Dr Busby outpatient
Chronic HFmrEF
Mild - Moderate Aortic Stenosis
�- Stable.� No evidence of acute volume overload, edema, etc.
�- Continue current diuretic dosing, CV med regimen.
�- Follow I/Os, daily weights, etc.
hold lasix for now
Abrupt change in mental status 10/09
CT scan negative for any hemorrhage, shows chronic infarct
Evaluated by neurology, Vimpat increased to 150 mg twice daily. Also on Keppra. Vimpat level was increased 10/09 however now normal
�- Monitor for any breakthrough seizure activity.
Follows up with Dr. Correia outpatient, repeat episode 10/11. Neurology reconsulted. Per neurology would not make any change in antiseizure medication. Repeat Vimpat level 10/13
keppra level pending
orthostatic neg
LORIE on CKD
check Ua wnl
bladder scan
hold lasix
Mild hyponatremia
Monitor
Multidrug Resistant Hypertension
�- Continue current med regimen with holding parameters. dec clonidine to 0.2 as has bradycardia
periods of bradycardia
monitor
hx of CVA
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
�- Continue PAP therapy during hospital stay.
DVT Prophylaxis:� SCDs; started coumadin
Code Status: � Full
Anticipated Discharge: Within 24 hours
Subjective/Interval History
-
Date of Service: October 13, 2023
denies pain
Objective Data
-
Labs:
Laboratory Results
10/13/23
04:13
WBC 6.0
Hgb 9.2 L
Hct 25.8 L
Plt Count 165
PT 17.3 H
INR 1.40
Sodium 137
Potassium 4.2
Chloride 99
Carbon Dioxide 30
BUN 37 H
Creatinine 1.0
Glucose 108 H
Calcium 9.1
Total Bilirubin 0.4
AST 24
ALT 19
Alkaline Phosphatase 90
Vital Signs:
Vital Signs
Temp Pulse Resp BP Pulse Ox
98.4 F 60 15 128/59 97
10/13/23 11:25 10/13/23 11:25 10/13/23 11:25 10/13/23 11:25 10/13/23 11:25
I&O
10/12/23 10/13/23 10/14/23
06:59 06:59 06:59
Intake Total 240 / 240
Output Total 350 / 350 250 / 250
Balance 240 / 240 -350 / -350 -250 / -250
[2023-10-13] MEDS: LONITEN 10 MG PO ×2 (12:06→21:06)
[2023-10-13] MEDS: MIRALAX 17 GRAMS PO (12:06)
[2023-10-13] MEDS: PROTONIX 40 MG PO (12:06)
--- NOTE | 2023-10-13 12:41 | PTCARENOTE ---
Patient back from GI lab. VS stable. Patient is eating lunch now. in room at bedside.
[2023-10-13] MEDS: COUMADIN 6 MG PO (17:33)
[2023-10-13] MEDS: TRANDATE PO (21:40)
[2023-10-14] VITALS (15 sets, daily range): BP systolic 108–167; BP diastolic 49–79; PULSE 64; BMI 23.3
--- NOTE | 2023-10-14 01:30 | PTCARENOTE ---
Patient received from previous shift. Pt pleasant and agreeable to care. Pt took PM meds well with water. PT satting 96 on RA while wake, Pt has hx of sleep apnea and desats to 88% while sleeping, when aroused pt returns to 96%. Pt does not complain
of pain at this time. Pt on seizure precautions r/t hx of epilepsy. Pt oriented to self and situation, disoriented to time. No acute changes overnight. Please see nursing shift assessment for full head to toe.
[2023-10-14 06:41] LABS: % Basophils 0.7 % (0-2); % Eosinophils 4.5 % (0-6); % Immature Granulocytes 0.2 % (0-0.5); % Lymphocytes 23.2 % (20.5-51.1); % Monocytes 11.3 % (1.7-9.3); % Neutrophils 60.1 % (42.2-75.2); Absolute Eosinophils 0.3 10^3/uL (0-0.7); Absolute Lymphocytes 1.4 10^3/uL (1.2-3.4); Absolute Monocytes 0.7 10^3/uL (0.1-0.6); Absolute Neutrophils 3.6 10^3/uL (1.4-6.5); Hemoglobin 9.3 g/dL (13.0-18.0); Mean Corp Hgb Conc. 34.4 g/dL (33.0-37.0); Mean Corpuscular Hgb 33.9 pg (27.0-31.0); Mean Corpuscular Volume 98.5 fL (80.0-94.0); Mean Platelet Volume 10.6 fL (7.4-10.4); Nucleated Red Blood Cells % 0 % (-); Platelet Count 170 10^3/uL (130-400); Red Blood Cell Count 2.74 10^6/uL (4.70-6.10); White Blood Cell Count 5.9 10^3/uL (4.8-10.8)
[2023-10-14 07:01] LABS: ALT (SGPT) 18 U/L (0-50); AST (SGOT) 22 U/L (17-59); Albumin 3.6 g/dl (3.5-5.0); Alkaline Phosphatase 95 U/L (38-126); Blood Urea Nitrogen 27 mg/dl (9-20); Calcium 9.3 mg/dl (8.4-10.2); Carbon Dioxide 30 mmol/L (22-30); Chloride 101 mmol/L (98-107); Estimated Creatinine Clearance 66 ml/min; Glucose 100 mg/dl (70-99); Potassium 4.6 mmol/L (3.5-5.1); Sodium 137 mmol/L (135-145); Total Bilirubin 0.5 mg/dl (0.2-1.3); Total Protein 6.5 g/dl (6.3-8.2); eGFR > 60.00
[2023-10-14 07:26] LABS: Tegretol (Carbamazepine) 12.1 ug/ml (4-12)
--- NOTE | 2023-10-14 09:14 | W.PN.GI.CBS2 ---
Today's Communication / Plan
-
Hgb stable 9.2--9.3
No bleeding found on EGD
OK to resume coumadin
Await path
Will sign off. Please call back if needed
Assessment / Plan
-
Pt is a 83yo with hx seizure disorder, asthma, lung CA with lobectomy, colon polyps, sleep apnea, cognitive decline, CKD, chronic anemia with admission in July with new afib and CHF with start of Coumadin and Furosemide. Pt was seen during
that admission by GI with anemia but hbg was in chronic range and noted heme neg and recommended to consider hematology evaluation. He did have heme follow up and due for bone marrow bx next week. He has recent dental work last week with removal
of bridge and tooth extraction. Post procedure was started on Amoxicillin and began with nausea and vomiting. In ER noted with dark emesis On admission hbg 10 with last hbg 11.4 09/26/23 but range of 7-8 over last year. BUN 47 and 1.4 higher than
prior range with INR 3.24 with Coumadin use and noted heme + in ER. No hx EGD. Last colonoscopy 2015 with diverticulosis, adenomatous and HP polyps. few dose of Motrin used with recent dental work.
10/12 EGD:
Irregular z line- bx'd r/o douglas's
No mass in mid esophagus
Antral erythema bx'd r/o HP
Food in fundus/contrast material
SBBx'd r/o celiac
Impression:
-dark emesis on admission
-heme + stool
-hx chronic anemia due for bone marrow bx
-afib on Coumadin prior to admission
-recent dental work
-CHF with recent diuresis and wt loss
-chronic constipation on daily miralax
-bradicardia on exam
other medical problems:
-hx adenomatous and hyperplastic colon polyps
-seizure disorder
-asthma
-lung CA with lobectomy
-CKD
-cognitive decline
10/11/2023 upper GI series suspected nonobstructing mucosal-based mass in the left side of the esophagus
Subjective
Subjective
Date of Service: October 14, 2023
No complaints
Objective
Data Reviewed
Laboratory Data:
Laboratory Results
10/14/23 06:11
10/14/23 06:11
Laboratory Results
PT 17.3 Sec (11.4-14.6) H 10/13/23 04:13
INR 1.40 10/13/23 04:13
Total Bilirubin 0.5 mg/dl (0.2-1.3) 10/14/23 06:11
AST 22 U/L (17-59) 10/14/23 06:11
ALT 18 U/L (0-50) 10/14/23 06:11
Alkaline Phosphatase 95 U/L (38-126) 10/14/23 06:11
Lipase 84 U/L (23-300) 10/09/23 02:00
Vital Signs and I&O:
Vital Signs
Temp Pulse Resp BP Pulse Ox
98.8 F 55 14 116/53 93
10/14/23 03:39 10/14/23 06:00 10/14/23 06:00 10/14/23 06:00 10/14/23 06:00
I&O
10/13/23 10/14/23 10/15/23
06:59 06:59 06:59
Intake Total 1580 / 1580
Output Total 350 / 350 600 / 600
Balance -350 / -350 980 / 980
Physical Exam
Physical Exam
GI: Soft, Non Distended and Non Tender
[2023-10-14] MEDS: PROTONIX 40 MG PO (09:27)
[2023-10-14] MEDS: VIMPAT 150 MG PO ×2 (09:27→21:05)
[2023-10-14] MEDS: LONITEN 10 MG PO ×2 (09:28→21:05)
[2023-10-14] MEDS: TRANDATE PO ×2 (09:28→21:05)
[2023-10-14] MEDS: KEPPRA 1500 MG PO ×2 (09:28→21:05)
[2023-10-14] MEDS: MIRALAX 17 GRAMS PO (09:30)
[2023-10-14 10:20] LABS: INR 1.39; PT 16.9 Sec (11.4-14.6)
[2023-10-14] MEDS: TEGRETOL PO (10:35)
--- NOTE | 2023-10-14 13:51 | PTCARENOTE ---
Pt received in bed @ 0700. Assisted OOB to chair x1 with rolling walker. Denying pain. Pt forgetful. Hard of hearing. SaO2 96% on room air. Bradycardia with prolonged QT on front desk monitor. No edema. Voided magda into urinal. Assisted to bathroom;
(+) moderate brown bowel movement. Pt remains in chair. in room.
--- NOTE | 2023-10-14 14:08 | W.PN.HOSP.TC ---
Today's Communication/Plan
-
Monitor vital signs see plan
Continue with Coumadin
Monitor hemoglobin
Decrease carbamazepine to 400 mg twice daily
hopeful dc in next 24hrs
Assessment / Plan
Assessment / Plan
General: no acute distress
HEENT: Moist mucous membranes and PERRLA
Respiratory: Clear; No Wheezes, Rales or Rhonchi
Cardiac: S1/S2, Regular Rhythm and Murmur (II/ SENTHIL)
GI: Soft, Non Tender, Non Distended and Normal Bowel Sounds
Musculoskeletal: No Clubbing, No Cyanosis and No Edema
Neuro: Awake and Alert
Intractable N/V
resolved
�- Suspect acute gastritis secondary to recent abx use / amoxicillin.
�- Last dose was > 24 hours ago - would remain off of this medication.
�- Supportive care including antiemetics.
�
Heme Positive Stool
Chronic Anemia
�- Some reports of dark red vomitus per ED / spouse.
�- Occult blood positive stool in the ED.
�- Hgb is higher than his typical baseline (though lower than his most recent check - which seems an anomaly).
�- Chronic baseline Hgb has been 7-9 g/dL
�- Transfuse if needed for Hgb < 7, worsening symptoms or ongoing blood loss.
�- GI following
PPI, continue with LRD when ok with GI after UGI series; GI discussed scope in detail with the patient and family and plan now for conservative measures. Upper GI series 10/10 with suspected nonobstructing mucosal-based mass in the left side of the
mid esophagus. Endoscopy 10/12 with irregular Z-line, biopsied to rule out Alicia's, no mass in mid esophagus. Antral erythema biopsy to rule out H. pylori. Per GI resume regular diet and await for path. Okay to resume Coumadin
Coumadin Coagulopathy
Paroxysmal Atrial Fibrillation
�- INR today is 1.39 with last ortiz of Coumadin being 7.5mg evening 3/10; resume Coumadin 10/12 at 6 mg
�- Maintaining NSR at present.
follows with Dr Busby outpatient
Chronic HFmrEF
Mild - Moderate Aortic Stenosis
�- Stable.� No evidence of acute volume overload, edema, etc.
�- Continue current diuretic dosing, CV med regimen.
�- Follow I/Os, daily weights, etc.
hold lasix for now
Abrupt change in mental status 10/09
CT scan negative for any hemorrhage, shows chronic infarct
Evaluated by neurology, Vimpat increased to 150 mg twice daily. Also on Keppra. Vimpat level was increased 10/09 however now normal
�- Monitor for any breakthrough seizure activity.
Follows up with Dr. Correia outpatient, repeat episode 10/11. Neurology reconsulted. Per neurology would not make any change in antiseizure medication. Carbamazepine level level 10/13 12.1, discussed with neurology (Dr. Oh) who instructed to
lower carbamazepine to 400 mg twice daily
orthostatic neg
LORIE on CKD
check Ua wnl
bladder scan
hold lasix
Mild hyponatremia
Monitor
Multidrug Resistant Hypertension
�- Continue current med regimen with holding parameters. dec clonidine to 0.2 as has bradycardia
periods of bradycardia
monitor
hx of CVA
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
�- Continue PAP therapy during hospital stay.
DVT Prophylaxis:� SCDs; started coumadin
Code Status: � Full
Anticipated Discharge: Within 24 hours
Subjective/Interval History
-
Date of Service: October 14, 2023
Denies pain
Objective Data
-
Labs:
Laboratory Results
10/14/23 10/14/23
06:11 10:05
WBC 5.9
Hgb 9.3 L
Hct 27.0 L
Plt Count 170
PT 16.9 H
INR 1.39
Sodium 137
Potassium 4.6
Chloride 101
Carbon Dioxide 30
BUN 27 H
Creatinine 0.9
Glucose 100 H
Calcium 9.3
Total Bilirubin 0.5
AST 22
ALT 18
Alkaline Phosphatase 95
Vital Signs:
Vital Signs
Temp Pulse Resp BP Pulse Ox
98.8 F 58 16 143/68 96
10/14/23 11:15 10/14/23 12:00 10/14/23 12:00 10/14/23 12:00 10/14/23 12:15
I&O
10/13/23 10/14/23 10/15/23
06:59 06:59 06:59
Intake Total 1580 / 1580
Output Total 350 / 350 600 / 600 175 / 175
Balance -350 / -350 980 / 980 -175 / -175
--- NOTE | 2023-10-14 16:30 | CM ---
Patient with Dx Intractable N/V, Suspected acute gastritis. Room air. PT & OT recommend HH.
Plan home with resumption of [facility] and Palliative Care.
[2023-10-14] MEDS: COUMADIN 6 MG PO (17:57)
[2023-10-14] MEDS: TEGRETOL 400 MG PO (21:05)
[2023-10-15] VITALS: BP 123/54
[2023-10-15 02:00] VITALS: BP 132/57
[2023-10-15 03:28] VITALS: BMI 23.3
[2023-10-15 04:00] VITALS: BP 119/48
[2023-10-15 05:13] LABS: % Basophils 0.8 % (0-2); % Eosinophils 5.3 % (0-6); % Immature Granulocytes 0.3 % (0-0.5); % Lymphocytes 24.4 % (20.5-51.1); % Monocytes 13.6 % (1.7-9.3); % Neutrophils 55.6 % (42.2-75.2); Absolute Basophils 0.1 10^3/uL (0-0.2); Absolute Eosinophils 0.3 10^3/uL (0-0.7); Absolute Lymphocytes 1.5 10^3/uL (1.2-3.4); Absolute Monocytes 0.8 10^3/uL (0.1-0.6); Absolute Neutrophils 3.4 10^3/uL (1.4-6.5); Hematocrit 26.2 % (39.0-52.0); Hemoglobin 9.2 g/dL (13.0-18.0); Mean Corp Hgb Conc. 35.1 g/dL (33.0-37.0); Mean Corpuscular Hgb 34.2 pg (27.0-31.0); Mean Corpuscular Volume 97.4 fL (80.0-94.0); Mean Platelet Volume 10.8 fL (7.4-10.4); Nucleated Red Blood Cells % 0 % (-); Platelet Count 177 10^3/uL (130-400); Red Blood Cell Count 2.69 10^6/uL (4.70-6.10); Red Cell Dist. Width 11.9 % (11.5-14.5); White Blood Cell Count 6.2 10^3/uL (4.8-10.8)
[2023-10-15 05:21] LABS: INR 1.39; PT 16.9 Sec (11.4-14.6)
[2023-10-15 05:36] LABS: ALT (SGPT) 25 U/L (0-50); AST (SGOT) 32 U/L (17-59); Albumin 3.6 g/dl (3.5-5.0); Alkaline Phosphatase 100 U/L (38-126); Blood Urea Nitrogen 27 mg/dl (9-20); Calcium 9.1 mg/dl (8.4-10.2); Carbon Dioxide 29 mmol/L (22-30); Chloride 101 mmol/L (98-107); Estimated Creatinine Clearance 66 ml/min; Glucose 101 mg/dl (70-99); Potassium 4.9 mmol/L (3.5-5.1); Sodium 137 mmol/L (135-145); Total Bilirubin 0.5 mg/dl (0.2-1.3); Total Protein 6.4 g/dl (6.3-8.2); eGFR > 60.00
[2023-10-15 06:00] VITALS: BP 126/52
[2023-10-15 08:00] VITALS: BP 131/60
[2023-10-15] MEDS: KEPPRA 1500 MG PO (09:01)
[2023-10-15] MEDS: MIRALAX 17 GRAMS PO (09:01)
[2023-10-15] MEDS: LONITEN 10 MG PO (09:01)
[2023-10-15] MEDS: PROTONIX 40 MG PO (09:02)
[2023-10-15] MEDS: VIMPAT 150 MG PO (09:02)
[2023-10-15] MEDS: TRANDATE PO (09:02)
[2023-10-15] MEDS: TEGRETOL 400 MG PO (09:02)
[2023-10-15 10:00] VITALS: BP 120/54
--- NOTE | 2023-10-15 10:56 | W.PN.HOSP.TC ---
Addendum entered and electronically signed by Dorian Bryant MD 10/15/23 14:24:
Patient was instructed to take 7.5 mg Coumadin tonight and tomorrow and to get INR checked on Monday
Addendum entered and electronically signed by Dorian Bryant MD 10/15/23 11:05:
Time of discharge 37 minutes
Original Note:
Today's Communication/Plan
-
Monitor vital signs as above
Hold labetalol on discharge
Patient will follow with cardiology outpatient
INR check on Monday, spouse aware
Spouse updated at bedside
Assessment / Plan
Assessment / Plan
General: no acute distress
HEENT: Moist mucous membranes and PERRLA
Respiratory: Clear; No Wheezes, Rales or Rhonchi
Cardiac: S1/S2, Regular Rhythm and Murmur (II/ SENTHIL)
GI: Soft, Non Tender, Non Distended and Normal Bowel Sounds
Musculoskeletal: No Clubbing, No Cyanosis and No Edema
Neuro: Awake and Alert
Intractable N/V
resolved
�- Suspect acute gastritis secondary to recent abx use / amoxicillin.
�- Last dose was > 24 hours ago - would remain off of this medication.
�- Supportive care including antiemetics.
�
Heme Positive Stool
Chronic Anemia
�- Some reports of dark red vomitus per ED / spouse.
�- Occult blood positive stool in the ED.
�- Hgb is higher than his typical baseline (though lower than his most recent check - which seems an anomaly).
�- Chronic baseline Hgb has been 7-9 g/dL
�- Transfuse if needed for Hgb < 7, worsening symptoms or ongoing blood loss.
�- GI following
PPI, continue with LRD when ok with GI after UGI series; GI discussed scope in detail with the patient and family and plan now for conservative measures. Upper GI series 10/10 with suspected nonobstructing mucosal-based mass in the left side of the
mid esophagus. Endoscopy 10/12 with irregular Z-line, biopsied to rule out Alicia's, no mass in mid esophagus. Antral erythema biopsy to rule out H. pylori. Per GI resume regular diet and await for path. Okay to resume Coumadin
Coumadin Coagulopathy
Paroxysmal Atrial Fibrillation
�- INR today is 1.39 with last ortiz of Coumadin being 7.5mg evening 10/07; resume Coumadin 10/12 at 6 mg
�- Maintaining NSR at present.
follows with Dr Busby outpatient
Chronic HFmrEF
Mild - Moderate Aortic Stenosis
�- Stable.� No evidence of acute volume overload, edema, etc.
�- Continue current diuretic dosing, CV med regimen.
�- Follow I/Os, daily weights, etc.
hold lasix for now
Abrupt change in mental status 10/09
CT scan negative for any hemorrhage, shows chronic infarct
Evaluated by neurology, Vimpat increased to 150 mg twice daily. Also on Keppra. Vimpat level was increased 10/09 however now normal
�- Monitor for any breakthrough seizure activity.
Follows up with Dr. Correia outpatient, repeat episode 10/11. Neurology reconsulted. Per neurology would not make any change in antiseizure medication. Carbamazepine level level 10/13 12.1, discussed with neurology (Dr. Oh) who instructed to
lower carbamazepine to 400 mg twice daily
orthostatic neg
LORIE on CKD
check Ua wnl
bladder scan
hold lasix
Mild hyponatremia
Monitor
Multidrug Resistant Hypertension
�- Continue current med regimen with holding parameters. dec clonidine to 0.2 as has bradycardia
periods of bradycardia; hold labetalol on dc
monitor
hx of CVA
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
�- Continue PAP therapy during hospital stay.
DVT Prophylaxis:� SCDs; started coumadin
Code Status: � Full
Anticipated Discharge: Today
Subjective/Interval History
-
Date of Service: October 15, 2023
Denies pain
Objective Data
-
Labs:
Laboratory Results
10/15/23
04:34
WBC 6.2
Hgb 9.2 L
Hct 26.2 L
Plt Count 177
PT 16.9 H
INR 1.39
Sodium 137
Potassium 4.9
Chloride 101
Carbon Dioxide 29
BUN 27 H
Creatinine 0.9
Glucose 101 H
Calcium 9.1
Total Bilirubin 0.5
AST 32
ALT 25
Alkaline Phosphatase 100
Vital Signs:
Vital Signs
Temp Pulse Resp BP Pulse Ox
98.4 F 49 16 120/54 96
10/15/23 07:55 10/15/23 10:00 10/15/23 10:00 10/15/23 10:00 10/15/23 10:37
I&O
10/14/23 10/15/23 10/16/23
06:59 06:59 06:59
Intake Total 1580 / 1580 480 / 480
Output Total 600 / 600 375 / 375
Balance 980 / 980 -375 / -375 480 / 480
--- NOTE | 2023-10-15 10:58 | W.DCSUMMARY ---
Discharge Summary
Discharge Data
Date of Admission: 10/09/23
Date of Discharge: 10/15/23
-
Pending Results: Yes
Hospital Course
83-year-old male with past medical history of CHF, CKD, hypertension, CVA, COREY, A-fib came to the hospital with intractable nausea and vomiting which was likely thought was secondary to acute gastritis given recent antibiotics for dental procedure.
Patient also had heme positive stool and giving anemia patient was seen by GI. Patient initially had upper GI series which showed possible nonobstructed mucosal based mass in the left side of the mid esophagus. Patient underwent endoscopy later
which did not show any mass however did had some irregular Z-line which was biopsied to rule out Alicia's esophagus. Initially patient INR was supratherapeutic however which later came down after holding Coumadin for GI procedure. Once patient
was cleared by GI, his Coumadin was resumed. His INR was still subtherapeutic on discharge for which she was instructed to follow-up with a repeat INR on 10/17/2023 outpatient. Patient instructed to continue taking 7.5 mg Coumadin. Patient also
had persistent bradycardia for which his labetalol was held. His clonidine was also decreased to 0.2. Once patient symptoms were improving, he was then discharged home with instructions to follow-up with all his physicians outpatient.
Discharge Plan
-
Patient Disposition: Home (Routine Discharge)
Discharge Diagnosis/Procedures: Intractable nausea and vomiting
Acute gastritis
Heme positive stool
Coumadin coagulopathy
Bradycardia
Elevated carbamazepine level
Diet: As tolerated
Activity: As tolerated
Driving Restrictions: As prior to admission
Bathing Restrictions: None
Blood Work: Carbamazepine level next week with primary care provider or neurology
Coumadin check on 10/17/2023
Referrals:
Vladislav Correia MD [Active] -
Lorenzo Busby MD [Active] -
Robin Garcia MD [Family Provider] - in less than 1 week
Victor Manuel Dodson MD [Active] -
Prescriptions:
New
polyethylene glycol 3350 [HealthyLax] 17 gram Powder In Packet
17 g PO DAILY Qty: 0 0RF
clonidine 0.2 mg/24 hr Patch Weekly
0.2 mg transdermal WE Qty: 30 0RF
Continued
minoxidil 10 mg Tablet
10 mg PO BID
levetiracetam 500 mg Tablet
1,500 mg PO BID Qty: 180 1RF
cyanocobalamin (vitamin B-12) 1,000 mcg Tablet
1,000 mcg PO DAILY Qty: 30 1RF
pantoprazole 40 mg Tablet,Delayed Release (Dr/Ec)
40 mg PO DAILY Qty: 30 0RF
Changed
carbamazepine 200 mg Tablet Extended Release 12 Hr
400 mg PO BID Qty: 0 0RF
lacosamide [Vimpat] 100 mg tablet
150 mg PO BID Qty: 0 0RF
Patient Comments:
08/23/2023: last filled 08/08/23, 60 tabs for 30 days from [facility]
warfarin [Jantoven] 2.5 mg tablet
7.5 mg PO QHS Qty: 0 0RF
Rx Instructions:
please check INR tues 10/17/23 and adjust with clinic as needed daily or as directed
Held
labetalol 200 mg tablet
600 mg PO BID
Hold Instructions: until instructed by cardiology
furosemide 40 mg Tablet
40 mg PO DAILY 30 Days Qty: 30 0RF
Hold Instructions: Resume on 10/17/23.
Discontinued
clonidine 0.3 MG patch weekly
0.3 mg transdermal WE
Rx Instructions:
03/01/2023, PLACE ON RIGHT SHOULDER
Discharge Orders:
Discharge Patient (As Directed); Ordered 10/15/23
Ordered By: Dorian Bryant
Discharge Date and Time
Discharge Date/Time: 10/15/23 12:21
--- NOTE | 2023-10-15 12:27 | PTCARENOTE ---
Discharge instructions and medication list reviewed with patient. Pneumococcal history reviewed with medical record and entered into computer. IV sites removed. Pt escorted to 's car by wheelchair.
== END 2023-10-15 12:21 | disposition home or self-care (01) | DRG 378 ==
LOC: IMU 05:09
PROVIDERS: Registered Nurse Critical Care Medicine; Specialist; Student in an Organized Health Care Education/Training Program; ADMITTING PHYSICIAN Hospitalist; ATTENDING PHYSICIAN Internal Medicine; CONSULT PHYSICIAN Internal Medicine Gastroenterology; EMERGENCY PHYSICIAN Student in an Organized Health Care Education/Training Program; FAMILY PHYSICIAN Internal Medicine; OTHER PHYSICIAN Psychiatry & Neurology Neurology
PROC: 0DB48ZX Excision of Esophagogastric Junction, Via Natural or Artificial Opening Endoscopic, Diagnostic (ICD-10-PCS; 2023-10-13)
PROC: 0DB98ZX Excision of Duodenum, Via Natural or Artificial Opening Endoscopic, Diagnostic (ICD-10-PCS; 2023-10-13)
PROC: 0DB68ZX Excision of Stomach, Via Natural or Artificial Opening Endoscopic, Diagnostic (ICD-10-PCS; 2023-10-13)
DX: K29.71 Gastritis, unspecified, with bleeding (principal); C34.11 Malignant neoplasm of upper lobe, right bronchus or lung; I50.22 Chronic systolic (congestive) heart failure; I13.0 Hypertensive heart and chronic kidney disease with heart failure and stage 1 through stage 4 chronic kidney disease, or unspecified chronic kidney disease; N17.9 Acute kidney failure, unspecified; E87.1 Hypo-osmolality and hyponatremia; D68.32 Hemorrhagic disorder due to extrinsic circulating anticoagulants; D50.9 Iron deficiency anemia, unspecified; T45.515A Adverse effect of anticoagulants, initial encounter; I48.0 Paroxysmal atrial fibrillation; I35.0 Nonrheumatic aortic (valve) stenosis; N18.30 Chronic kidney disease, stage 3 unspecified; I1A.0 Resistant hypertension; G40.909 Epilepsy, unspecified, not intractable, without status epilepticus; G47.33 Obstructive sleep apnea (adult) (pediatric); Z79.01 Long term (current) use of anticoagulants; K29.00 Acute gastritis without bleeding; K22.89 Other specified disease of esophagus; K31.89 Other diseases of stomach and duodenum
CPT/HCPCS: 88305; 70450; 74246; 80053; 80156; 80177; 81003; 82248; 82962; 83690; 85014; 85018; 85025; 85610; 86850; 86900; 86901; 88342; 93005; 94762; 96374; 96375; 97110; 97116; 97163; 97167; 97530; 99285

== ENCOUNTER 2023-10-20 09:34 | Inpatient (IN) | payer MEDICARE, OTHER, SELFPAY ==
[2023-10-17] VITALS (14 sets, daily range): BP systolic 120–160; BP diastolic 52–92; BMI 24.0; BMI 22.8
[2023-10-17 08:13] LABS: Glucose - Point of Care 123 mg/dl (70-99)
--- NOTE | 2023-10-17 08:23 | ED.GENMED ---
History of Present Illness
<Jaylan Castro PA-C - Last Filed: 10/17/23 10:29>
General
Chief Complaint: Change in Mental Status
Source: patient
Exam Limitations: none
Time Seen by Provider: 10/17/23 08:07
Travel History
Have you had any contact with someone who has COVID-19?: No
Do you have any symptoms of coronavirus? Fever > 100 degrees, chills, cough, shortness of breath, sore throat, loss of taste or smell, muscle aches, or headache?: No
History of Present Illness
History of Present Illness:
83-year-old male presents from home where he lives with his with onset of confusion this morning. He was at his normal baseline last evening. He woke up this morning putting his shoes on first and trying to put his pants on. He could not
figure out his stair lift that he uses every day. His states he was disoriented. Patient unaware why he is here in the hospital. He denies any pain. He was recently admitted to this hospital for upper GI bleeding. Carbamazepine was
decreased. Vimpat was increased. He does have a history of seizure disorder. He is on Coumadin as well. No reported fever by the . No other complaints at this time.
Past History
<Jaylan Castro PA-C - Last Filed: 10/17/23 10:29>
Past History
ED Past Medical History: Asthma, Cancer (Lung), CHF, CVA, HTN, Hypercholesterolemia, Seizures and Other (COREY, C-pap at night, Meningitis, )
ED Past Surgical History: Tonsilectomy and Other (right lobectomy, Uvulectomy)
Social History
Tobacco: Non-smoker
Alcohol: None
Drug: None
Personal:
Living: with family
Employment: Retired
Family History
Family History: Other (reviewed and Noncontributory)
Phy Exam
<Jaylan Castro PA-C - Last Filed: 10/17/23 10:29>
Physical Exam
Physical Exam:
General: Well-appearing male no acute respiratory distress
Neurologic exam: Alert and oriented to person only. No facial asymmetry or slurred speech. No drift on exam finger-nose intact muscle tone
Heart: Regular rate and rhythm holosystolic ejection murmur noted
Lungs: Clear no wheeze or Rales
Abdomen: Soft nontender nondistended no guarding or rebound
Extremities: No cyanosis or edema
Skin warm no rash or lesions
Course
<Jaylan Castro PA-C - Last Filed: 10/17/23 10:29>
Orders/Labs/Results
Orders:
Orders
10/17/23 08:20
CT Head W/o Iv Contrast Urgent
Comment:
Reason For Exam: confusion
CR Chest - 2 Views Urgent
Comment:
Reason For Exam: confusion
10/17/23 08:28
Alcohol Urgent
Complete Blood Count/With Diff Urgent
Comprehensive Metabolic Panel Urgent
Magnesium Urgent
Comment: ADD ON
Prothrombin Time Urgent
Blood Culture Q30M
MISHA Source: Blood/Venous
Specimen Description:
10/17/23 08:31
Urinalysis Reflex To Culture Urgent
Date Specimen was Collected: 10/17/23
Time Specimen was Collected: 08:31
Urine Drug Abuse Screen Urgent
Date Specimen was Collected: 10/17/23
Time Specimen was Collected: 08:31
10/17/23 09:45
Add On- LAB Urgent
Tests Added?: magnesium level, alcohol level, urine drug screen
10/17/23 09:54
Tegretol (Carbamazepine) Urgent
Blood Culture Q30M
MISHA Source: Blood/Venous
Specimen Description:
Abnormal Lab Results
10/17/23 10/17/23
08:12 08:28
RBC 3.18 L 10^6/uL
(4.70-6.10)
Hgb 10.8 L g/dL
(13.0-18.0)
Hct 31.2 L %
(39.0-52.0)
MCV 98.1 H fL
(80.0-94.0)
MCH 34.0 H pg
(27.0-31.0)
Absolute Monos (auto) 0.7 H 10^3/uL
(0.1-0.6)
Lymphocytes % 20.3 L %
(20.5-51.1)
Monocytes % 12.1 H %
(1.7-9.3)
PT 16.6 H Sec
(11.4-14.6)
BUN 27 H mg/dl
(9-20)
Glucose 119 H mg/dl
(70-99)
ALT 53 H U/L
(0-50)
POC Glucose 123 H mg/dl
(70-99)
10/17/23 08:28
10/17/23 08:28
Vital Signs
Initial and Last Documented VS:
Initial Vital Signs
Temp Pulse Resp BP Pulse Ox
97.6 F 63 18 151/59 100
10/17/23 07:59 10/17/23 07:59 10/17/23 07:59 10/17/23 07:59 10/17/23 07:59
Last Documented Vital Signs
Temp Pulse Resp BP Pulse Ox
97.6 F 60 14 134/58 99
10/17/23 07:59 10/17/23 08:54 10/17/23 08:54 10/17/23 08:54 10/17/23 08:54
<Carly Javier MD - Last Filed: 10/17/23 08:33>
Orders/Labs/Results
Orders:
Orders
10/17/23 08:20
CT Head W/o Iv Contrast Urgent
Comment:
Reason For Exam: confusion
CR Chest - 2 Views Urgent
Comment:
Reason For Exam: confusion
10/17/23 08:28
Alcohol Urgent
Complete Blood Count/With Diff Urgent
Comprehensive Metabolic Panel Urgent
Magnesium Urgent
Comment: ADD ON
Prothrombin Time Urgent
Blood Culture Q30M
MISHA Source: Blood/Venous
Specimen Description:
10/17/23 08:31
Urinalysis Reflex To Culture Urgent
Date Specimen was Collected: 10/17/23
Time Specimen was Collected: 08:31
Urine Drug Abuse Screen Urgent
Date Specimen was Collected: 10/17/23
Time Specimen was Collected: 08:31
10/17/23 09:45
Add On- LAB Urgent
Tests Added?: magnesium level, alcohol level, urine drug screen
10/17/23 09:54
Tegretol (Carbamazepine) Urgent
Blood Culture Q30M
MISHA Source: Blood/Venous
Specimen Description:
Abnormal Lab Results
10/17/23 10/17/23
08:12 08:28
RBC 3.18 L 10^6/uL
(4.70-6.10)
Hgb 10.8 L g/dL
(13.0-18.0)
Hct 31.2 L %
(39.0-52.0)
MCV 98.1 H fL
(80.0-94.0)
MCH 34.0 H pg
(27.0-31.0)
Absolute Monos (auto) 0.7 H 10^3/uL
(0.1-0.6)
Lymphocytes % 20.3 L %
(20.5-51.1)
Monocytes % 12.1 H %
(1.7-9.3)
PT 16.6 H Sec
(11.4-14.6)
BUN 27 H mg/dl
(9-20)
Glucose 119 H mg/dl
(70-99)
ALT 53 H U/L
(0-50)
POC Glucose 123 H mg/dl
(70-99)
10/17/23 08:28
10/17/23 08:28
Vital Signs
Initial and Last Documented VS:
Initial Vital Signs
Temp Pulse Resp BP Pulse Ox
97.6 F 63 18 151/59 100
10/17/23 07:59 10/17/23 07:59 10/17/23 07:59 10/17/23 07:59 10/17/23 07:59
Last Documented Vital Signs
Temp Pulse Resp BP Pulse Ox
97.6 F 60 14 134/58 99
10/17/23 07:59 10/17/23 08:54 10/17/23 08:54 10/17/23 08:54 10/17/23 08:54
<Jaylan Castro PA-C - Last Filed: 10/17/23 10:29>
MDM/Problems Addressed
Differential Diagnosis Includes:
Acute confusion. Differential could include infectious source such as UTI viral illness or pneumonia. Also check for electrolyte abnormality. There is recent medication changes. Will check CT of head as he is on Coumadin and has change in mental
status. Currently vital signs are stable.
<Jaylan Castro PA-C - Last Filed: 10/17/23 10:29>
*Critical Care Note
Total Time (30-74mins, 75-104mins- exclusive of procedures): Not Applicable
<Jaylan Castro PA-C - Last Filed: 10/17/23 10:29>
Update Note
Update Note:
Patient reexamined multiple times. He had a brief episode of clarity and was lucid answering all questions and was oriented however shortly afterwards, he became confused again. Currently he is oriented only to person not aware of his surroundings
or what is going on. Urine drug screen negative alcohol negative workup otherwise within normal limits. Spoke with neurology. Will admit to hospital for encephalopathy. Recheck of temp is 98.0
ED Attending Note
<Jaylan Castro PA-C - Last Filed: 10/17/23 10:29>
-
Portions of this chart may have been created with voice recognition software.� Occasional wrong word or��sound alike� substitutions may have occurred due to the inherent limitations of voice recognition software.
<Carly Javier MD - Last Filed: 10/17/23 08:33>
ED Attending Note
Patient seen and examined by attending physician: Yes
I performed the substantive portion of visit, reviewed & personally made and approve the management plan that is documented in note by myself or ROB.: Yes
ED Attending Note:
Patient arrives alert and oriented to self only. However, he is conversational and smiling. He is in no acute distress. is at the bedside and reports he is acutely confused. Patient will be evaluated for metabolic abnormality, intracranial
abnormality, infection, etc. His lungs are clear. His abdomen is soft and nontender
Discharge Plan
Departure
Patient Disposition: Admit
Date of Disposition: 10/17/23
Time of Disposition: 10:29
Admit to: Telemetry
Presentation/result/management discussed w/ accepting MD/DO: Hospitalist
Discharge Problem:
ENCEPHALOPATHY
Prescriptions:
No Action
minoxidil 10 mg Tablet
10 mg PO BID
levetiracetam 500 mg Tablet
1,500 mg PO BID Qty: 180 1RF
cyanocobalamin (vitamin B-12) 1,000 mcg Tablet
1,000 mcg PO DAILY Qty: 30 1RF
pantoprazole 40 mg Tablet,Delayed Release (Dr/Ec)
40 mg PO DAILY Qty: 30 0RF
labetalol 200 mg tablet
600 mg PO BID
Hold Instructions: until instructed by cardiology
furosemide 40 mg Tablet
40 mg PO DAILY 30 Days Qty: 30 0RF
Hold Instructions: Resume on 10/17/23.
polyethylene glycol 3350 [HealthyLax] 17 gram Powder In Packet
17 g PO DAILY Qty: 0 0RF
clonidine 0.2 mg/24 hr Patch Weekly
0.2 mg transdermal WE Qty: 30 0RF
carbamazepine 200 mg Tablet Extended Release 12 Hr
400 mg PO BID Qty: 0 0RF
lacosamide [Vimpat] 100 mg tablet
150 mg PO BID Qty: 0 0RF
Patient Comments:
08/23/2023: last filled 08/08/23, 60 tabs for 30 days from [facility]
warfarin [Jantoven] 2.5 mg tablet
7.5 mg PO QHS Qty: 0 0RF
Rx Instructions:
please check INR tues 10/17/23 and adjust with clinic as needed daily or as directed
Referrals:
Robin Garcia MD [Family Provider] -
Interventions
Interventions:
*Risk Screen - Suicide Last Done: 10/17/23 08:09
*Neglect/Abuse Screening Last Done: 10/17/23 08:09
*ED COVID-19 Vaccine History Last Done: 10/17/23 08:09
ED- Neurological Assessment Last Done: 10/17/23 08:54
[2023-10-17 08:40] LABS: % Basophils 1.1 % (0-2); % Eosinophils 5.9 % (0-6); % Immature Granulocytes 0.5 % (0-0.5); % Lymphocytes 20.3 % (20.5-51.1); % Monocytes 12.1 % (1.7-9.3); % Neutrophils 60.1 % (42.2-75.2); Absolute Basophils 0.1 10^3/uL (0-0.2); Absolute Eosinophils 0.4 10^3/uL (0-0.7); Absolute Lymphocytes 1.2 10^3/uL (1.2-3.4); Absolute Monocytes 0.7 10^3/uL (0.1-0.6); Absolute Neutrophils 3.7 10^3/uL (1.4-6.5); Hematocrit 31.2 % (39.0-52.0); Hemoglobin 10.8 g/dL (13.0-18.0); Mean Corp Hgb Conc. 34.6 g/dL (33.0-37.0); Mean Corpuscular Volume 98.1 fL (80.0-94.0); Mean Platelet Volume 10.3 fL (7.4-10.4); Nucleated Red Blood Cells % 0 % (-); Platelet Count 223 10^3/uL (130-400); Red Blood Cell Count 3.18 10^6/uL (4.70-6.10); White Blood Cell Count 6.1 10^3/uL (4.8-10.8)
[2023-10-17 08:45] LABS: Urine Albumin Negative (Neg - Trace); Urine Bilirubin Negative (Negative); Urine Character Clear (Clear); Urine Color Yellow; Urine Glucose Negative (Negative); Urine Ketone Negative (Negative); Urine Leukocyte Negative (Negative); Urine Nitrite Negative (Negative); Urine Occult Blood Negative (Negative); Urine Urobilinogen Negative (Neg - 1+); Urine pH 6.5 (5.0-9.0)
[2023-10-17 08:48] LABS: ALT (SGPT) 53 U/L (0-50); AST (SGOT) 52 U/L (17-59); Albumin 4.5 g/dl (3.5-5.0); Alkaline Phosphatase 103 U/L (38-126); Blood Urea Nitrogen 27 mg/dl (9-20); Calcium 9.6 mg/dl (8.4-10.2); Carbon Dioxide 29 mmol/L (22-30); Chloride 104 mmol/L (98-107); Glucose 119 mg/dl (70-99); INR 1.36; PT 16.6 Sec (11.4-14.6); Potassium 4.7 mmol/L (3.5-5.1); Sodium 138 mmol/L (135-145); Total Bilirubin 0.6 mg/dl (0.2-1.3); Total Protein 7.8 g/dl (6.3-8.2); eGFR > 60.00
[2023-10-17 10:17] LABS: Amphetamines Negative (Negative); Barbiturates Negative (Negative); Benzodiazepines Negative (Negative); Buprenorphine Negative (Negative); Cocaine Negative (Negative); Marijuana Negative (Negative); Methadone Negative (Negative); Methamphetamines Negative (Negative); Opiates Negative (Negative); Phencyclidine Negative (Negative); Tricyclic Antidepressants Negative (Negative)
[2023-10-17 10:19] LABS: Magnesium 1.9 mg/dl (1.6-2.3)
[2023-10-17 10:20] LABS: Tegretol (Carbamazepine) 8.7 ug/ml (4-12)
[2023-10-17 10:20] LABS: Alcohol None Detected
--- NOTE | 2023-10-17 12:42 | HPS.HSE ---
Family Physician
-
Family Physician: Robin Garcia
Chief Complaint
-
change in mental status
History of Present Illness
83yo M with pmhx of seizure,HTN,CHF,sleep apnea, lung cancer, CHF, CVA, hypertension, hyperlipidemia came to the hospital with change in mental status. Per patient was found to be confused this morning and did not know where he was. Denies
any motor deficits. Per spouse patient was waxing and waning with his mental status. Denies any chest pain, shortness of breath.
Medical History
Past Medical History
Past Medical History: Reports Asthma, Cancer (Lung), CHF, CVA, Hypercholesterolemia and Seizures
Past Surgical History: Reports Tonsilectomy and Other (Right lobectomy, uvulectomy)
Social History
Tobacco: Non-smoker
Alcohol: None
Family History
Family History: Not pertinent
Allergies / Home Medications
Allergies reflects when Allergies were last updated in [facility].
Home Medications with original date entered in [facility]
Allergy/Medication List:
Allergies
Allergy/AdvReac Type Severity Reaction Status Date / Time
hydralazine Allergy Unknown Verified 10/09/23 01:59
pollen extracts Allergy nasal Verified 10/09/23 01:59
symptoms
Home Medications
minoxidil 10 mg tablet 10 mg PO BID Blood Pressure 01/22/23
labetalol 200 mg tablet 600 mg PO .SEE BELOW Blood Pressure 02/27/23
carbamazepine 200 mg tablet,extended release,12 hr 400 mg PO BID Seizures #0 tabs 10/15/23
lacosamide 100 mg tablet (Vimpat) 150 mg PO BID Seizures #0 tabs 10/15/23
clonidine 0.2 mg/24 hr weekly transdermal patch 0.2 mg transdermal WE Blood Pressure 10/17/23
cyanocobalamin (vitamin B-12) 1,000 mcg tablet 1,000 mcg PO DAILY Supplement 10/17/23
furosemide 40 mg tablet 40 mg PO DAILY Fluid Retention/Swelling 10/17/23
levetiracetam 500 mg tablet 1,500 mg PO BID seizures 10/17/23
pantoprazole 40 mg tablet,delayed release 40 mg PO DAILY Gastrointestinal Issue 10/17/23
polyethylene glycol 3350 17 gram oral powder packet (HealthyLax) 17 g PO DAILY constipation 10/17/23
warfarin 1 mg tablet 1 mg PO TUWETHFRSA@1800 Blood Clot Prevention/Tx 10/17/23
warfarin 7.5 mg tablet 7.5 mg PO SUMO@1800 Blood Clot Prevention/Tx 10/17/23
warfarin 7.5 mg tablet 7.5 mg PO TUWETHFRSA@1800 Blood Clot Prevention/Tx 10/17/23
Review of Systems
-
History Source: Patient
A 12 point ROS was completed and negative except as noted: Yes
Physical Exam
Vital Signs
Vital Signs
Temp Pulse Resp BP Pulse Ox
97.6 F 76 14 147/62 99
10/17/23 07:59 10/17/23 12:00 10/17/23 12:00 10/17/23 12:00 10/17/23 11:00
Physical Exam
General: Well Nourished and No Apparent Distress
HEENT: Anicteric; No Moist mucous membranes
Respiratory: Clear and Non Labored Respirations; No Wheezes
Cardiac: S1/S2 and Regular Rhythm
Breast: Deferred by me
GI: Soft, Non Tender and Non Distended
Rectal: Deferred by Provider
Genito-urinary: Deferred by me
Musculoskeletal: No Edema
Neuro: Awake and Alert
Psych: Calm
Laboratory Results
-
10/17/23 08:28
10/17/23 08:28
Laboratory Results
PT 16.6 Sec (11.4-14.6) H 10/17/23 08:28
INR 1.36 10/17/23 08:28
Total Bilirubin 0.6 mg/dl (0.2-1.3) 10/17/23 08:28
AST 52 U/L (17-59) 10/17/23 08:28
ALT 53 U/L (0-50) H 10/17/23 08:28
Alkaline Phosphatase 103 U/L (38-126) 10/17/23 08:28
Data Reviewed
-
Lab Data: Labs Reviewed by me, Discussed with Patient and Discussed with Family
Impression/Plan
-
Change in mental status, rule out CVA
CT scan without any hemorrhage
Check MRI
Neurology consulted
Patient was recently here and did had intermittent episodes of abrupt change in mental status where he was seen by neurology and his Vimpat was increased to 150 mg twice daily. His carbamazepine level was high prior to discharge so his
carbamazepine decreased to 400 mg twice daily
Continue with neurochecks
Does have subtherapeutic INR, continue Coumadin
INR
no signs of infection
History of CVA
History of sleep apnea
Multidrug-resistant hypertension
Clonidine was decreased 2.2 last admission due to bradycardia
Labetalol is on hold, if blood pressure and heart rate okay then will restart labetalol
Chronic CHF with reduced EF
Mild to moderate aortic stenosis
Lasix is currently on hold
DVTppx
coumadin
Full code
Discussed with spouse over the phone
I spent a total of 77 minutes with the patient or on the floor. More than 50% of this time involved counseling and coordination of care.
--- NOTE | 2023-10-17 18:17 | TRANSFER ---
Pt admitted into room 436-2 from ED. Ambulated from stretcher to bed with x2 assistance. AAOx1, disoriented to time and place. NIHSS 4. at bedside and oriented to plan of care. Call [facility] within reach.
[2023-10-17] MEDS: COUMADIN 7.5 MG PO (18:25)
[2023-10-17] MEDS: NON-FORMULARY ITEM 400 MG PO (21:25)
[2023-10-17] MEDS: KEPPRA 1500 MG PO (21:25)
[2023-10-17] MEDS: LONITEN 10 MG PO (21:26)
[2023-10-17] MEDS: VIMPAT 150 MG PO (21:27)
[2023-10-18] VITALS (7 sets, daily range): BP systolic 103–159; BP diastolic 56–71; PULSE 70; O2SAT 98; BMI 23.2
--- NOTE | 2023-10-18 08:17 | W.PN.NEURO.1 ---
Documented by User: Flower Sims NP 10/18/23 10:21
Today's Communication / Plan
-
.
Neuro Assessment/Plan
Assessment
-CT Head 10/17/23: No evidence of acute intracranial abnormality. Possible right caudate nucleus old infarct.
I. Multifactorial encephalopathy (neurodegenerative, vascular, epileptic)
II. Focal refractory epilepsy
III. History of meningitis, BL SDH. melanoma
Plan
-Brain MRI noncontrast ordered/pending in view of apraxia, subtherapeutic INR/A-Fib.
-Warfarin/INR management per primary team.
-Continue Vimpat 150mg BID if no EKG abnormalities.
-Continue Keppra 1,500 mg PO BID.
-Continue carbamazepine 400mg BID.
-NIHSS and neurological checks per unit guidelines. Provide patient/spouse with a stroke education packet.
-Lipid panel pending, if there is evidence of an old or new stroke on MRI brain, LDL goal will be <70.
-Goal normoglycemia, hbA1c pending.
-DVT prophylaxis.
-Consideration for starting Xcopri as an outpatient for breakthrough seizure reduction.
-Will follow pending results.
Subjective/Objective
Subjective Data
Date of Service: October 18, 2023
No acute events overnight. Patient has no recollection of yesterday's event. He is currently unable to answer any orientation questions, except for his name. He denies any headache, dizziness, speech/swallow difficulty, nausea, numbness, weakness,
chest pain, palpitations, and shortness of breath.
Objective Data
Vital Signs
Temp Pulse Resp BP Pulse Ox
99.6 F 71 16 133/56 96
10/18/23 07:50 10/18/23 07:50 10/18/23 07:50 10/18/23 07:50 10/18/23 07:50
PT 16.6 Sec (11.4-14.6) H 10/17/23 08:28
INR 1.36 10/17/23 08:28
Sodium 138 mmol/L (135-145) 10/17/23 08:28
Potassium 4.7 mmol/L (3.5-5.1) 10/17/23 08:28
BUN 27 mg/dl (9-20) H 10/17/23 08:28
Glucose 119 mg/dl (70-99) H 10/17/23 08:28
Calcium 9.6 mg/dl (8.4-10.2) 10/17/23 08:28
Ur Buprenorphine Negative (Negative) 10/17/23 08:31
Patient Allergies
hydralazine Allergy (Verified 10/09/23 01:59)
Unknown
pollen extracts Allergy (Verified 10/09/23 01:59)
nasal symptoms
Review of Systems
-
History Source: Patient
EENT: Negative Blurry Vision, Decreased Vision or Swallowing Difficulty
Respiratory: Negative Cough or Trouble Breathing
Cardiac: Negative Chest Pain or Palpitations
Abdomen/GI: Negative Nausea
Neuro: Negative Dizzy, Headache, Weakness, Numbness, Ataxia or Speech Problem
Physical Exam
-
General: No Apparent Distress
Eyes: No Ptosis and PERRLA
HEENT: Normocephalic and Atraumatic
Neck: Full Range of Motion
Respiratory: No Dyspnea
GI: Non-distended
Extremities: No Clubbing, No Cyanosis and No Edema
Psych: Confused
Extended Neurological Exam
Mood & Affect: Mood Unremarkable and Affect Unremarkable
Attention Span & Concentration: Awake, Alert, Interactive and Moderate Difficulty with 2 Step Request
Memory: Unable to Recall (Oriented to name only. Not age, place, time, or situation.)
Tremor: Hand Tremor Absent and Head Tremor Absent
Involuntary Movement: None
Speech: Quality Unremarkable, Expressive Aphasia and Moderately Reduced Output
Cranial Nerve II: Left Eye: Pupillary Reactivity Unremarkable, Pupillary Size Unremarkable and Visual Brandt Intact
Cranial Nerve II: Right Eye: Pupillary Reactivity Unremarkable, Pupillary Size Unremarkable and Visual Brandt Intact
Cranial Nerves III, IV, : Extraocular Movement: Extraocular Movement Full in all Directions
Cranial Nerve VII: Facial Symmetry: Normal Facial Symmetry
Cranial Nerve VIII: Hearing: Unremarkable Hearing to Normal Conversational Volume
Cranial Nerves IX, X: Palate Movement: Palate Elevation Symmetric
Cranial Nerve XI: Shoulder Shrug: Unremarkable
Cranial Nerve XII: Tongue Protusion: Midline
Muscle Strength, Overall: Full Throughout
Muscle Bulk & Tone: Bulk Unremarkable and Tone Unremarkable
Pronator Drift: No Drift in Upper Extremities and No Drift in Lower Extremities
Deep Tendon Reflexes: Trace Throughout
Touch Sensation: Other (RASHIDA DBS due to confusion)
Coordination: Mynjxi-gtpa-rhpqhm Testing Unremarkable
Babinski Sign: Absent Bilaterally
Data Reviewed
-
CT Head: Report Reviewed and Image Reviewed
MRI Head: Ordered and Pending
Labs: Report Reviewed
Lipid Profile: Ordered and Pending
HgbA1C: Ordered and Pending
Reviewed with: Physician and Patient
Medications
-
Active Medications
Generic Name Dose Route Start Last Admin
Trade Name Freq PRN Reason Stop Dose Admin
Acetaminophen 650 mg 10/18/23 00:18
Acetaminophen 325 Mg Tablet PO 11/15/23 00:17
Q6HPRN PRN
mild pain/ fever>100.5F
Clonidine HCl 0.2 mg 10/18/23 08:00
Clonidine 0.2 Mg Patch TRANSDERM 11/15/23 07:59
WE VIRAJ
Cyanocobalamin 1,000 mcg 10/18/23 08:00
Cyanocobalamin 1,000 Mcg Tablet PO 11/15/23 07:59
DAILY VIRAJ
Lacosamide 150 mg 10/17/23 20:00 10/17/23 21:27
Lacosamide (Vimpat) 100 Mg Tablet PO 11/14/23 19:59 150 mg
BID VIRAJ Administration
Levetiracetam 1,500 mg 10/17/23 20:00 10/17/23 21:25
Levetiracetam 500 Mg Regular Release Tablet PO 11/14/23 19:59 1,500 mg
BID VIRAJ Administration
Minoxidil 10 mg 10/17/23 20:00 10/17/23 21:26
Minoxidil 10 Mg Tablet PO 11/14/23 19:59 10 mg
BID VIRAJ Administration
Carbamazepine Er 400 0 mg 10/17/23 20:00 10/17/23 21:25
Mg (2 X 200 Mg PO 11/14/23 19:59 400 mg
Tablets) Po Bid BID VIRAJ Administration
Pantoprazole Sodium 40 mg 10/18/23 08:00
Pantoprazole 40 Mg Delayed Release Tablet PO 11/15/23 07:59
DAILY VIRAJ
Polyethylene Glycol 17 grams 10/18/23 08:00
Polyethylene Glycol Powder 17 Grams Packet PO 11/15/23 07:59
DAILY VIRAJ
Warfarin Sodium 7.5 mg 10/17/23 18:00 10/17/23 18:25
Warfarin 7.5 Mg Tablet PO 10/22/23 17:59 7.5 mg
QPM VIRAJ Administration
Home Medications
Medication Instructions Recorded
minoxidil 10 mg tablet 10 mg PO BID Blood Pressure 01/22/23
labetalol 200 mg tablet 600 mg PO .SEE BELOW Blood 02/27/23
Pressure
carbamazepine 200 mg 400 mg PO BID Seizures #0 tabs 10/15/23
tablet,extended release,12 hr
lacosamide 100 mg tablet (Vimpat) 150 mg PO BID Seizures #0 tabs 10/15/23
clonidine 0.2 mg/24 hr weekly 0.2 mg transdermal WE Blood 10/17/23
transdermal patch Pressure
cyanocobalamin (vitamin B-12) 1,000 mcg PO DAILY Supplement 10/17/23
1,000 mcg tablet
furosemide 40 mg tablet 40 mg PO DAILY Fluid 10/17/23
Retention/Swelling
levetiracetam 500 mg tablet 1,500 mg PO BID seizures 10/17/23
pantoprazole 40 mg tablet,delayed 40 mg PO DAILY Gastrointestinal 10/17/23
release Issue
polyethylene glycol 3350 17 gram 17 g PO DAILY constipation 10/17/23
oral powder packet (HealthyLax)
warfarin 1 mg tablet 1 mg PO TUWETHFRSA@1800 Blood Clot 10/17/23
Prevention/Tx
warfarin 7.5 mg tablet 7.5 mg PO SUMO@1800 Blood Clot 10/17/23
Prevention/Tx
warfarin 7.5 mg tablet 7.5 mg PO TUWETHFRSA@1800 Blood 10/17/23
Clot Prevention/Tx
NIH Stroke Score
Subsequent NIH Scale
Date of Subsequent NIH Scale: 10/18/23
Time of Subsequent NIH Scale: 09:00
NIH Stroke Score
Level of Consciousness: 0 - Alert
LOC Questions: 2-Neither correct
LOC Commands: 0-Performs both correctly
Best Horizontal Gaze: 0-Normal
Visual Brandt: 0=Normal, no visual loss
Facial Palsy: 0=Normal, symmetrical
Motor - Right Arm: 0=No drift 10 seconds
Motor - Left Arm: 0=No drift 10 seconds
Motor - Right Le-No drift 5 seconds
Motor - Left Le-No drift 5 seconds
Limb Ataxia: 0-Absent
Sensation: 0-Normal
Best Language: 1-Mild aphasia
Dysarthria: 0-Normal
Extinction and Inattention: 0-No abnormality
Total Score:: 3

Documented by User: Loan Caballero MD 10/18/23 13:40
NIH Stroke Score
NIH Stroke Score
Total Score:: 3
[2023-10-18 08:37] LABS: % Basophils 0.6 % (0-2); % Eosinophils 2.6 % (0-6); % Immature Granulocytes 0.3 % (0-0.5); % Monocytes 12.1 % (1.7-9.3); % Neutrophils 66.4 % (42.2-75.2); Absolute Eosinophils 0.2 10^3/uL (0-0.7); Absolute Lymphocytes 1.3 10^3/uL (1.2-3.4); Absolute Monocytes 0.8 10^3/uL (0.1-0.6); Absolute Neutrophils 4.6 10^3/uL (1.4-6.5); Hematocrit 29.7 % (39.0-52.0); Hemoglobin 10.2 g/dL (13.0-18.0); Mean Corp Hgb Conc. 34.3 g/dL (33.0-37.0); Mean Corpuscular Hgb 33.6 pg (27.0-31.0); Mean Corpuscular Volume 97.7 fL (80.0-94.0); Mean Platelet Volume 10.7 fL (7.4-10.4); Nucleated Red Blood Cells % 0 % (-); Platelet Count 233 10^3/uL (130-400); Red Blood Cell Count 3.04 10^6/uL (4.70-6.10); Red Cell Dist. Width 12.1 % (11.5-14.5); White Blood Cell Count 6.9 10^3/uL (4.8-10.8)
[2023-10-18 08:45] LABS: INR 1.34; PT 16.7 Sec (11.4-14.6)
--- NOTE | 2023-10-18 09:00 | PTOTSP ---
Speech Language Pathology
Pt seen for clinical bedside swallow evaluation. Pt with 4 previous VSEs, most recently 02/10/23 with recommendations for regular solids/thin liquids. Previous VSEs completed: 02/02/23 (dysphagia 2/nectar-thick), 12/10/21 (dysphagia 2/thin), 10/15/21
(regular solids/thin liquids).
This date, seen with breakfast tray of regular solids/thin liquids. Pt drinking syrup from container upon arrival. Confused conversation noted, but pt pleasant and cooperative. Pt seen with trinidadian toast and thin liquids. Adequate mastication,
bolus formation, and A-P transit noted with no oral residue. No overt signs of aspiration.
Recommend:
(1) Continue regular solids/thin liquids
(2) General aspiration precautions
(3) Meds as tolerated
(4) GRINDING AND SPRAYING SUPERVISOR to follow up pending neuro workup if cognitive-linguistic evaluations indicated. Further dysphagia services do not appear indicated at this time.
[2023-10-18 09:08] LABS: Blood Urea Nitrogen 31 mg/dl (9-20); Calcium 9.5 mg/dl (8.4-10.2); Carbon Dioxide 29 mmol/L (22-30); Chloride 98 mmol/L (98-107); Estimated Creatinine Clearance 54 ml/min; Glucose 87 mg/dl (70-99); Potassium 4.1 mmol/L (3.5-5.1); Sodium 136 mmol/L (135-145); eGFR > 60.00
--- NOTE | 2023-10-18 09:16 | VNURNOTE ---
Patient is current with [facility] since 08/29 w/SN/PT/OT, he was scheduled for a resumption of care 10/16 after last admission but returned to prior to that visit. Will monitor progress and plan at discharge.
[2023-10-18] MEDS: NON-FORMULARY ITEM 400 MG PO ×2 (09:34→20:48)
[2023-10-18] MEDS: KEPPRA 1500 MG PO ×2 (09:36→20:47)
[2023-10-18] MEDS: CATAPRES-TTS-2 0.200000000000000011 MG TRANSDERM (09:36)
[2023-10-18] MEDS: PROTONIX 40 MG PO (09:37)
[2023-10-18] MEDS: VIMPAT 150 MG PO ×2 (09:37→20:48)
[2023-10-18] MEDS: LONITEN 10 MG PO ×2 (09:39→20:47)
[2023-10-18] MEDS: MIRALAX 17 GRAMS PO (09:40)
[2023-10-18] MEDS: VITAMIN B-12 1000 MCG PO (09:41)
[2023-10-18 10:37] LABS: HDL Cholesterol 73 mg/dl; LDL Cholesterol, Calculated 115 mg/dl; Total Cholesterol 206 mg/dl (50-199); Triglyceride 93 mg/dl (10-149); Very Low Density Lipoprotein 18 mg/dl (0-30)
[2023-10-18 11:08] LABS: TSH Reflex To Free T4 0.63 uIU/ml (0.47-4.68)
--- NOTE | 2023-10-18 12:00 | W.PN.HOSP.TC ---
Addendum entered and electronically signed by Dorian Bryant MD 10/18/23 15:58:
Spouse updated over the phone
Original Note:
Today's Communication/Plan
-
monitor vitals
see plan
MRI
neurochecks
PT/OT
cw antiepileptics
follow bcx
Assessment / Plan
Assessment / Plan
General: Well Nourished and No Apparent Distress
HEENT: Anicteric; No Moist mucous membranes
Respiratory: Clear and Non Labored Respirations; No Wheezes
Cardiac: S1/S2 and Regular Rhythm
GI: Soft, Non Tender and Non Distended
Musculoskeletal: No Edema
Neuro: Awake and Alert
Psych: Calm
Change in mental status, rule out CVA
CT scan without any hemorrhage
Check MRI pending; yesterday patient was unable to tolerate MRI
Neurology following
Patient was recently here and did had intermittent episodes of abrupt change in mental status where he was seen by neurology and his Vimpat was increased to 150 mg twice daily.� His carbamazepine level was high prior to discharge so his
carbamazepine decreased to 400 mg twice daily
Continue with neurochecks
Does have subtherapeutic INR, continue Coumadin
INR daily
no signs of infection; bcx drawn in ED; 1 bottle with probably coag neg randy; follow-up for final speciation. likely contaminant
Paroxysmal atrial fibrillation
INR daily
Continue with Coumadin
History of CVA
History of sleep apnea
Multidrug-resistant hypertension
Clonidine was decreased 2.2 last admission due to bradycardia
Labetalol is on hold, if blood pressure and heart rate okay then will restart labetalol
Chronic CHF with reduced EF
Mild to moderate aortic stenosis
Lasix is currently on hold
Recent gastritis
Monitor
DVTppx
coumadin
Full code
Anticipated Discharge: 24 - 48 hours
Subjective/Interval History
-
Date of Service: October 18, 2023
denies pain
Objective Data
-
Labs:
Laboratory Results
10/18/23
06:44
WBC 6.9
Hgb 10.2 L
Hct 29.7 L
Plt Count 233
PT 16.7 H
INR 1.34
Sodium 136
Potassium 4.1
Chloride 98
Carbon Dioxide 29
BUN 31 H
Creatinine 1.1
Glucose 87
Calcium 9.5
Vital Signs:
Vital Signs
Temp Pulse Resp BP Pulse Ox
98.9 F 81 16 132/56 99
10/18/23 11:43 10/18/23 11:43 10/18/23 11:43 10/18/23 11:43 10/18/23 11:43
I&O
10/17/23 10/18/23 10/19/23
06:59 06:59 06:59
Intake Total 1080 / 1080
Output Total 0 / 0
Balance 1080 / 1080
[2023-10-18 12:10] LABS: Glycohemoglobin (HgbA1c) 5.7 % (4.0-5.6)
[2023-10-18] MEDS: COUMADIN 7.5 MG PO (16:43)
--- NOTE | 2023-10-18 16:57 | CM ---
section 8 property manager reviewed patient's chart and met with patient and patient lives with his spouse in a 2 story home, with chair life, patient is independent with adl's and uses a cane, walker, w/c or scooter with ambulation. Patient has a hospital bed,
patient is current with [facility] and Palliative care. [facility] letter provided.
Pharmacy: [facility]
PCP: Dr. Garcia.
Plan: Home with spouse, [facility] and Palliative care.
[2023-10-19 03:26] VITALS: BP 147/79
[2023-10-19 05:38] VITALS: BMI 22.6
[2023-10-19 07:35] VITALS: BP 117/57
[2023-10-19] MEDS: VIMPAT 150 MG PO ×2 (08:29→21:00)
[2023-10-19] MEDS: VITAMIN B-12 1000 MCG PO (08:30)
[2023-10-19] MEDS: KEPPRA 1500 MG PO ×2 (08:30→21:00)
[2023-10-19] MEDS: PROTONIX 40 MG PO (08:30)
[2023-10-19] MEDS: LONITEN 10 MG PO ×2 (08:30→21:11)
[2023-10-19] MEDS: MIRALAX PO (08:31)
[2023-10-19] MEDS: NON-FORMULARY ITEM 400 MG PO ×2 (08:34→21:00)
[2023-10-19 08:54] LABS: % Basophils 0.6 % (0-2); % Eosinophils 2.5 % (0-6); % Immature Granulocytes 0.4 % (0-0.5); % Lymphocytes 22.2 % (20.5-51.1); % Monocytes 12.1 % (1.7-9.3); % Neutrophils 62.2 % (42.2-75.2); Absolute Basophils 0.1 10^3/uL (0-0.2); Absolute Eosinophils 0.2 10^3/uL (0-0.7); Absolute Lymphocytes 1.8 10^3/uL (1.2-3.4); Absolute Neutrophils 5.1 10^3/uL (1.4-6.5); Hematocrit 27.4 % (39.0-52.0); Hemoglobin 9.6 g/dL (13.0-18.0); Mean Corpuscular Hgb 34.2 pg (27.0-31.0); Mean Corpuscular Volume 97.5 fL (80.0-94.0); Mean Platelet Volume 10.5 fL (7.4-10.4); Nucleated Red Blood Cells % 0 % (-); Platelet Count 205 10^3/uL (130-400); Red Blood Cell Count 2.81 10^6/uL (4.70-6.10); Red Cell Dist. Width 11.9 % (11.5-14.5); White Blood Cell Count 8.2 10^3/uL (4.8-10.8)
[2023-10-19 08:57] LABS: PT 18.2 Sec (11.4-14.6)
[2023-10-19 09:34] LABS: Blood Urea Nitrogen 30 mg/dl (9-20); Calcium 8.9 mg/dl (8.4-10.2); Carbon Dioxide 28 mmol/L (22-30); Chloride 102 mmol/L (98-107); Estimated Creatinine Clearance 58 ml/min; Glucose 85 mg/dl (70-99); Potassium 4.5 mmol/L (3.5-5.1); Sodium 133 mmol/L (135-145); eGFR > 60.00
--- NOTE | 2023-10-19 10:44 | W.PN.HOSP.TC ---
Today's Communication/Plan
-
see bold
Assessment / Plan
Assessment / Plan
Gen: NAD, AAOx3.
Eyes: EOMI, PERRLA, no scleral icterus.
Neck: supple.
CV: RRR, +S1/S2, no m/r/g.
Resp: CTAB, no rales, wheezes, or rhonchi.
Abd: +BS, soft, NT, ND
Skin: No rashes.
Neuro: CN 2-12 intact, non-focal.
Psych: Normal mood and affect.
MRI brain: No acute intracranial abnormality noted. Chronic senescent changes.
10/17/23 09:54 Blood/Venous Blood Culture - Preliminary
Coagulase neg. staphylococcus
10/17/23 09:54 Blood/Venous Gram Stain - Preliminary
10/17/23 08:28 Blood/Venous Blood Culture - Preliminary
Coagulase neg. staphylococcus
10/17/23 08:28 Blood/Venous Gram Stain - Final
Change in mental status/acute metabolic encephalopathy:
-imaging above, acute CVA has been ruled out
-BCxs taken at separate times with FLUME TENDER. Febrile 10/18/23PM. c/s ID, give a dose of Vanco, repeat BCxs.
-neuro following
-Patient was recently here and did had intermittent episodes of abrupt change in mental status where he was seen by neurology and his Vimpat was increased to 150 mg twice daily.� His carbamazepine level was high prior to discharge so his
carbamazepine decreased to 400 mg twice daily. Currently also on Keppra 1500mg BID.
Paroxysmal atrial fibrillation
-increase Coumadin to 10mg HS
-daily INRs
h/o CVA
-increase Coumadin to 10mg HS
-daily INRs
Essential hypertension:
-Multidrug-resistant
-Clonidine was decreased last admission due to bradycardia
-Labetalol is on hold, current BPs acceptable
-cont Minoxidil
Chronic HFrEF:
-with Mild-mod
-Lasix is currently on hold
COREY
Hyponatremia
FULL/coumadin
Anticipated Discharge: 24 - 48 hours
Subjective/Interval History
-
Date of Service: October 19, 2023
Denies CP/SOB.
Objective Data
-
Labs:
Laboratory Results
10/19/23
06:46
WBC 8.2
Hgb 9.6 L
Hct 27.4 L
Plt Count 205
PT 18.2 H
INR 1.50
Sodium 133 L
Potassium 4.5
Chloride 102
Carbon Dioxide 28
BUN 30 H
Creatinine 1.0
Glucose 85
Calcium 8.9
Vital Signs:
Vital Signs
Temp Pulse Resp BP Pulse Ox
98.1 F 72 18 147/79 99
10/19/23 03:26 10/19/23 03:26 10/19/23 03:26 10/19/23 03:26 10/19/23 03:26
I&O
10/18/23 10/19/23 10/20/23
06:59 06:59 06:59
Intake Total 1080 / 1080 1500 / 1500
Output Total 0 / 0
Balance 1080 / 1080 1500 / 1500
[2023-10-19 11:33] VITALS: BP 129/59
[2023-10-19] MEDS: VANCOCIN 540 MG IV (12:10)
--- NOTE | 2023-10-19 14:28 | PHA.VAN.IN ---
Assessment
- Assessment
Renal Function: Appears similar to baseline
Plan
- Plan
Initial / Loading Dose: 2000mg - 10/18 12:10 (after repeat blood cultures)
Maintenance Regimen: dosing by level given elevation in BUN
Monitoring: random 10/19 0600
Pharmacokinetics Vancomycin I
- -
Patient Age: 83
Patient Sex: Male
Vancomycin Day #: 1
Indication: Bacteremia
Requesting Provider: Dr. Meza
Pertinent Antimicrobial Allergies:
no pertinent antibiotic allergies
Height / Weight:
Height 5 ft 10 in
Actual Weight 71.299 kg
- Vital Signs / Lab Results
Temp Pulse Resp BP Pulse Ox
97.8 F 60 16 129/59 100
10/19/23 11:33 10/19/23 11:33 10/19/23 11:33 10/19/23 11:33 10/19/23 11:33
Lab Results - Hematology
10/17/23 10/18/23 10/19/23
08:28 06:44 06:46
WBC 6.1 6.9 8.2
Lab Results - Chemistry
10/17/23 10/18/23 10/19/23
08:28 06:44 06:46
BUN 27 H 31 H 30 H
Creatinine 1.0 1.1 1.0
Estimated Creat Clear 54 58
Albumin 4.5
Lab Results - Urine
10/17/23
08:31
Urine Nitrite (Reflex) Negative
Leukocyte Esterase Rfl Negative
Microbiology Results
10/17/23 09:54 Blood Culture - Preliminary
Blood/Venous Coagulase neg. staphylococcus
Gram Stain - Preliminary
10/17/23 08:28 Blood Culture - Preliminary
Blood/Venous Coagulase neg. staphylococcus
Gram Stain - Final
[2023-10-19 15:32] VITALS: BP 133/53
--- NOTE | 2023-10-19 16:32 | CON.ID ---
Consultation
-
Date/Time Consultation Requested: 10/19/23, 1630
Date/Time Consultation Performed: 10/19/23, 1635
Requesting Provider: Dr. Mayank Meza
Performing Provider: Dr. Regina Dawkins
Reason for Consultation: bacteremia
Chief Complaint / Past History
Chief Complaint
Change in mental status.
History of Present Illness
History obtained from patient, his at bedside, and review of medical records. he is a 83 year old male with seizure disorder, CVA, Afib on Coumadin recent admission 10/08 to 10/14 with intractable N/V, and underwent EGD. He had intermittent
confusion suspected dementia. Patient returned to hospital 10/16 with change in mental status. Per he was confused and did not know where he was. No fever at home. MRI brain no acute change. 10/17 had T 100.7 x 1. Admission blood cx's CoNS.
Had repeat bcx's this am before start of Vancomycin. Per , patient's mental status is back to baseline. He feels well. No cough/sob. no N/V/D. No dysuria/urgency. No prosthesis in his body.
Past History
Additional Past Medical History:
Asthma
Seizure
CVA
bilateral SDH
HTN
Afib
HFrEF
dyslipidemia
lung ca s/p right upper lobectomy
sleep apnea s/p uvulectomy
Allergy History:
hydralazine Allergy (Verified 10/09/23 01:59)
Unknown
pollen extracts Allergy (Verified 10/09/23 01:59)
nasal symptoms
Medications Reviewed: Yes
Current Antibiotics:
Vancomycin IV D1
Social History
Tobacco: Non-Smoker
Alcohol: None
Drug: None
Personal:
Family History
Family History: Not Pertinent
Review of Systems
Review of Systems
General: Negative Fever, Chills or Change in Appetite
HEENT: Negative Sinus Problems, Headache or Pharyngitis
Cardiovascular: Negative Chest Pain or Edema
Respiratory: Negative Dyspnea or Cough
Gasteroenterology: Negative Nausea or Vomiting
Genital / Urological: Negative Dysuria
Endocrine: Negative Weakness
Skin / Hair / Nails: Negative Rash
Neurological: Negative Headache or Dizziness
All systems: All other systems were reviewed and were negative
Vital Signs
Temp Pulse Resp BP Pulse Ox
97.8 F 60 16 129/59 100
10/19/23 11:33 10/19/23 11:33 10/19/23 11:33 10/19/23 11:33 10/19/23 11:33
Selected Entries
10/18/23
19:47
Temp 100.7 F H
Physical Exam
Physical Exam
Constitutional: No Acute Distress and Comfortable
Eyes: No Conjunctival Hemorrhage and Sclera Anicteric
Cardiovascular: Regular Rate and S1/S2
Pulmonary: Clear
Gastrointestinal: Soft, Non Tender, Non Distended and Normal Bowel Sounds
Genito-Urinary: Negative CVA Tenderness
Extremities: Negative Edema
Neurological: AO x 3; Negative Meningeal Signs
Lab / Diagnostic Study Results
10/19/23 06:46
10/19/23 06:46
Abs Immat Gran (auto) 0.0 10^3/uL (0-0.05) 10/19/23 06:46
Absolute Neuts (auto) 5.1 10^3/uL (1.4-6.5) 10/19/23 06:46
Absolute Lymphs (auto) 1.8 10^3/uL (1.2-3.4) 10/19/23 06:46
Absolute Monos (auto) 1.0 10^3/uL (0.1-0.6) H 10/19/23 06:46
Absolute Basos (auto) 0.1 10^3/uL (0-0.2) 10/19/23 06:46
Immature Gran % 0.4 % (0-0.5) 10/19/23 06:46
Neutrophils % 62.2 % (42.2-75.2) 10/19/23 06:46
Lymphocytes % 22.2 % (20.5-51.1) 10/19/23 06:46
Monocytes % 12.1 % (1.7-9.3) H 10/19/23 06:46
Eosinophils % 2.5 % (0-6) 10/19/23 06:46
Basophils % 0.6 % (0-2) 10/19/23 06:46
PT 18.2 Sec (11.4-14.6) H 10/19/23 06:46
INR 1.50 10/19/23 06:46
Microbiology Results
Micro:
10/19/23 11:23 Blood Culture - Pending
Blood/Venous
10/19/23 10:49 Blood Culture - Pending
Blood/Venous
10/17/23 09:54 Blood Culture - Preliminary
Blood/Venous Coagulase neg. staphylococcus
Gram Stain - Preliminary
10/17/23 08:28 Blood Culture - Preliminary
Blood/Venous Coagulase neg. staphylococcus
Gram Stain - Final
10/18/23 Brain MRI: No acute intracranial abnormality noted. Chronic senescent changes.
10/17/23 CXR: Postsurgical changes in the right hemithorax. The lungs appear clear. Moderate cardiomegaly with no evidence for pulmonary edema.
Assessment / Plan
# Coag-neg staphylococcus bacteremia from 2 sets of admission blood cultures drawn 1.5 hour apart.
# Fever 100.7 x 1 resolved
- Suspect CoNS are contaminants
- Patient without foreign bodies.
- Appreciate hospitalist repeating 2 sets of blood cultures this am BEFORE starting Vancomycin.
- If repeat blood cx's neg, dc Vancomycin.
#Encephalopathy - resolved
# Additional medical history.
Asthma
Seizure
CVA
bilateral SDH
HTN
Afib
HFrEF
dyslipidemia
lung ca s/p right upper lobectomy
sleep apnea s/p uvulectomy
--- NOTE | 2023-10-19 16:39 | CM ---
Chart reviewed and plan is to home with [facility].
Plan; Home with [facility].
[2023-10-19] MEDS: COUMADIN 10 MG PO (17:32)
[2023-10-19 23:34] VITALS: BP 130/58
[2023-10-20] VITALS (7 sets, daily range): BP systolic 115–161; BP diastolic 49–71; PULSE 59; O2SAT 100; BMI 22.7
[2023-10-20] MEDS: VIMPAT 150 MG PO ×2 (08:35→21:22)
[2023-10-20] MEDS: PROTONIX 40 MG PO (08:35)
[2023-10-20] MEDS: KEPPRA 1500 MG PO ×2 (08:35→21:24)
[2023-10-20] MEDS: NON-FORMULARY ITEM 400 MG PO ×2 (08:38→21:25)
[2023-10-20] MEDS: LONITEN 10 MG PO ×2 (08:38→21:35)
[2023-10-20] MEDS: VITAMIN B-12 1000 MCG PO (08:38)
[2023-10-20] MEDS: MIRALAX PO (08:39)
--- NOTE | 2023-10-20 09:30 | W.PN.HOSP.TC ---
Today's Communication/Plan
-
see bold
Assessment / Plan
Assessment / Plan
Gen: NAD, Awake and alert
Eyes: EOMI, PERRLA, no scleral icterus.
Neck: supple.
CV: RRR, +S1/S2, 2/6 systolic murmur
Resp: remains CTAB, no rales, wheezes, or rhonchi.
Abd: +BS, soft, NT, ND
Skin: No rashes.
Neuro: CN 2-12 intact, non-focal.
Psych: Normal mood and affect.
MRI brain: No acute intracranial abnormality noted. Chronic senescent changes.
10/17/23 08:28 Blood/Venous Blood Culture - Preliminary
Staphylococcus epidermidis
10/17/23 08:28 Blood/Venous Gram Stain - Final
10/17/23 09:54 Blood/Venous Blood Culture - Preliminary
Staphylococcus epidermidis
10/17/23 09:54 Blood/Venous Gram Stain - Preliminary
Change in mental status/acute metabolic encephalopathy:
-imaging above, acute CVA has been ruled out
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 Febrile 10/18/23PM, no further fevers.
-cont IV vanco as per ID, follow repeat BCxs
-neuro following
-Patient was recently here and did had intermittent episodes of abrupt change in mental status where he was seen by neurology and his Vimpat was increased to 150 mg twice daily.� His carbamazepine level was high prior to discharge so his
carbamazepine decreased to 400 mg twice daily. Currently also on Keppra 1500mg BID.
Paroxysmal atrial fibrillation
-Coumadin increased to 10mg HS
-daily INRs
h/o CVA
-Coumadin increased to 10mg HS
-daily INRs
Essential hypertension:
-Multidrug-resistant
-Clonidine was decreased last admission due to bradycardia
-Labetalol is on hold, current BPs acceptable
-cont Minoxidil
Chronic HFrEF:
-with Mild-mod
-Lasix is currently on hold
COREY
Hyponatremia
FULL/coumadin
Anticipated Discharge: 24 - 48 hours
Subjective/Interval History
-
Date of Service: October 20, 2023
No new complaints.
Objective Data
-
Vital Signs:
Vital Signs
Temp Pulse Resp BP Pulse Ox
98.1 F 55 16 117/49 98
10/20/23 07:35 10/20/23 07:35 10/20/23 07:35 10/20/23 08:38 10/20/23 07:35
I&O
10/19/23 10/20/23 10/21/23
06:59 06:59 06:59
Intake Total 1500 / 1500
Output Total 275 / 275
Balance 1500 / 1500 -275 / -275
[2023-10-20 09:56] LABS: Vancomycin Random 11.6 ug/ml
[2023-10-20 10:26] LABS: Hemoglobin 9.6 g/dL (13.0-18.0); Mean Corp Hgb Conc. 35.6 g/dL (33.0-37.0); Mean Corpuscular Hgb 33.7 pg (27.0-31.0); Mean Corpuscular Volume 94.7 fL (80.0-94.0); Mean Platelet Volume 9.8 fL (7.4-10.4); Platelet Count 199 10^3/uL (130-400); Red Blood Cell Count 2.85 10^6/uL (4.70-6.10); Red Cell Dist. Width 11.8 % (11.5-14.5); White Blood Cell Count 5.6 10^3/uL (4.8-10.8)
[2023-10-20 10:36] LABS: INR 1.73
[2023-10-20 10:53] LABS: Blood Urea Nitrogen 29 mg/dl (9-20); Calcium 9.2 mg/dl (8.4-10.2); Carbon Dioxide 28 mmol/L (22-30); Chloride 102 mmol/L (98-107); Estimated Creatinine Clearance 65 ml/min; Glucose 111 mg/dl (70-99); Potassium 4.6 mmol/L (3.5-5.1); Sodium 134 mmol/L (135-145); eGFR > 60.00
--- NOTE | 2023-10-20 14:46 | CM ---
Chart reviewed and plan is to home with spouse when stable, patient has been set up with [facility].
Plan; Home with spouse and [facility].
--- NOTE | 2023-10-20 15:26 | PHA.VAN.FU ---
Vancomycin Assessment / Plan
- Assessment
Renal Function: SCR Decreasing
WBC's are: WNL
In the past 24 hrs, patient has been: Afebrile
- Assessment - Therapeutic Drug Monitoring
Random Level: 11.6 - drawn ~19H after 2g loading dose
- Dosing Plan
Dosing by Level: Re-dose today (Vanc 1250mg)
- Monitoring Plan
Random Level: 10/20 06
- Follow Up
Pharmacy will continue to follow.
Vancomycin Follow UP
- -
Patient Age: 83
Patient Sex: Male
Vancomycin Day #: 2
Indication: Bacteremia
Requesting Provider: Dr. Meza
Pertinent Antimicrobial Allergies:
no pertinent antibiotic allergies
Height / Weight:
Height 5 ft 10 in
Actual Weight 71.809 kg
- Vital Signs / Lab Results
Temp Pulse Resp BP Pulse Ox
98.0 F 60 18 124/55 100
10/20/23 11:25 10/20/23 11:25 10/20/23 11:25 10/20/23 11:25 10/20/23 11:25
Lab Results - Hematology
10/18/23 10/19/23 10/20/23
06:44 06:46 10:19
WBC 6.9 8.2 5.6
Lab Results - Chemistry
10/18/23 10/19/23 10/20/23
06:44 06:46 10:19
BUN 31 H 30 H 29 H
Creatinine 1.1 1.0 0.9
Estimated Creat Clear 54 58 65
Microbiology Results
10/17/23 09:54 Blood Culture - Preliminary
Blood/Venous Staphylococcus epidermidis
Gram Stain - Preliminary
10/17/23 08:28 Blood Culture - Preliminary
Blood/Venous Staphylococcus epidermidis
Gram Stain - Final
10/19/23 11:23 Blood Culture - Preliminary
Blood/Venous No Growth in 24 hours- Final report to follow
10/19/23 10:49 Blood Culture - Preliminary
Blood/Venous No Growth in 24 hours- Final report to follow
Therapeutic Drug Monitoring
Random Vancomycin 11.6 ug/ml 10/20/23 06:47
--- NOTE | 2023-10-20 15:36 | W.PN.ID1 ---
Date of Service
Date of Service: October 20, 2023
Today's Communication
If repeat blood cx's neg tomorrow at 48 hours, dc Vancomycin and patient will be stable for dc from ID perspective
Assessment / Plan
# Coag-neg staphylococcus bacteremia from 2 sets of admission blood cultures drawn 1.5 hour apart.
# Fever 100.7 x 1 resolved
- Suspect CoNS are contaminants
- Patient without foreign bodies.
- Appreciate hospitalist repeating 2 sets of blood cultures this am BEFORE starting Vancomycin.
- If repeat blood cx's neg tomorrow at 48 hours, dc Vancomycin and patient will be stable for dc from ID perspective
#Encephalopathy - resolved
# Additional medical history.
Asthma
Seizure
CVA
bilateral SDH
HTN
Afib
HFrEF
dyslipidemia
lung ca s/p right upper lobectomy
sleep apnea s/p uvulectomy
Chief Complaint
-: Bacteremia
Subjective / Review of Systems
afebrile
bp stable
without leukocytosis, cr stable, repeat blood cultures no growth to date
no complaints
Vital Signs / Physical Exam
Vital Signs
Vital Signs
Temp Pulse Resp BP Pulse Ox
98.0 F 60 18 124/55 100
10/20/23 11:25 10/20/23 11:25 10/20/23 11:25 10/20/23 11:25 10/20/23 11:25
Physical Exam
Constitutional: No Acute Distress and Comfortable
Cardiovascular: Regular Rate and S1/S2; Negative Murmur or Rub
Pulmonary: Clear and Symmetric; Negative Wheezes or Rales
Gastrointestinal: Soft, Non Tender, Non Distended and Normal Bowel Sounds
Skin: Warm and Dry; Negative Rash or Jaundice
Objective Data
Lab Data
Lab Results
10/20/23 10:19
10/20/23 10:19
PT 20.0 Sec (11.4-14.6) H 10/20/23 10:19
INR 1.73 10/20/23 10:19
Estimated Creat Clear 65 ml/min 10/20/23 10:19
Total Bilirubin 0.6 mg/dl (0.2-1.3) 10/17/23 08:28
AST 52 U/L (17-59) 10/17/23 08:28
ALT 53 U/L (0-50) H 10/17/23 08:28
Alkaline Phosphatase 103 U/L (38-126) 10/17/23 08:28
Most recent labs reviewed.
Micro Results:
10/17/23 09:54 Blood Culture - Preliminary
Blood/Venous Staphylococcus epidermidis
Gram Stain - Preliminary
10/17/23 08:28 Blood Culture - Preliminary
Blood/Venous Staphylococcus epidermidis
Gram Stain - Final
10/19/23 11:23 Blood Culture - Preliminary
Blood/Venous No Growth in 24 hours- Final report to follow
10/19/23 10:49 Blood Culture - Preliminary
Blood/Venous No Growth in 24 hours- Final report to follow
10/18/23 Brain MRI: No acute intracranial abnormality noted. Chronic senescent changes.
10/17/23 CXR: Postsurgical changes in the right hemithorax. The lungs appear clear. Moderate cardiomegaly with no evidence for pulmonary edema.
--- NOTE | 2023-10-20 16:11 | VNURNOTE ---
Home Health Liaison met with patient and Shila at 1300 to discuss [facility] nurse/therapy, visits, schedule and homebound status. Patient is agreeable and understands that visits at home will be 2-3 x per week to assess and teach medical
management.
Patient is aware that [facility] will contact them for start of care in 1-2 days after discharge from .
[facility] referral completed in [facility].
[2023-10-20] MEDS: COUMADIN 10 MG PO (17:50)
[2023-10-20] MEDS: VANCOCIN 275 MG IV (17:50)
[2023-10-21 03:55] VITALS: BP 133/55
[2023-10-21 06:01] VITALS: BMI 23.7
[2023-10-21 07:00] VITALS: BP 124/57
[2023-10-21 07:09] LABS: Hemoglobin 9.5 g/dL (13.0-18.0); Mean Corp Hgb Conc. 35.2 g/dL (33.0-37.0); Mean Corpuscular Hgb 33.6 pg (27.0-31.0); Mean Corpuscular Volume 95.4 fL (80.0-94.0); Mean Platelet Volume 10.1 fL (7.4-10.4); Platelet Count 220 10^3/uL (130-400); Red Blood Cell Count 2.83 10^6/uL (4.70-6.10); Red Cell Dist. Width 11.8 % (11.5-14.5); White Blood Cell Count 5.9 10^3/uL (4.8-10.8)
[2023-10-21 07:11] LABS: INR 2.02; PT 22.7 Sec (11.4-14.6)
[2023-10-21 07:14] LABS: Vancomycin Random 14.1 ug/ml
[2023-10-21 07:28] LABS: Blood Urea Nitrogen 31 mg/dl (9-20); Calcium 9.6 mg/dl (8.4-10.2); Carbon Dioxide 29 mmol/L (22-30); Chloride 101 mmol/L (98-107); Estimated Creatinine Clearance 75 ml/min; Glucose 101 mg/dl (70-99); Potassium 4.6 mmol/L (3.5-5.1); Sodium 136 mmol/L (135-145); eGFR > 60.00
[2023-10-21] MEDS: NON-FORMULARY ITEM 400 MG PO (10:14)
[2023-10-21] MEDS: PROTONIX 40 MG PO (10:15)
[2023-10-21] MEDS: VITAMIN B-12 1000 MCG PO (10:15)
[2023-10-21] MEDS: KEPPRA 1500 MG PO (10:15)
[2023-10-21] MEDS: LONITEN 10 MG PO (10:15)
[2023-10-21] MEDS: VIMPAT 150 MG PO (10:15)
[2023-10-21] MEDS: MIRALAX PO (10:15)
--- NOTE | 2023-10-21 11:36 | PHA.VAN.FU ---
Vancomycin Assessment / Plan
- Assessment
Renal Function: SCR Decreasing
WBC's are: WNL
In the past 24 hrs, patient has been: Afebrile
- Dosing Plan
Dosing by Level: Re-dose today (1250MG)
- Monitoring Plan
Random Level: 10/21 IN AM
- Follow Up
Pharmacy will continue to follow.
Vancomycin Follow UP
- -
Patient Age: 83
Patient Sex: Male
Vancomycin Day #: 3
Indication: Bacteremia
Requesting Provider: Dr. Meza
Pertinent Antimicrobial Allergies:
no pertinent antibiotic allergies
Height / Weight:
Height 5 ft 10 in
Actual Weight 74.888 kg
- Vital Signs / Lab Results
Temp Pulse Resp BP Pulse Ox
98.6 F 60 22 124/57 99
10/21/23 07:00 10/21/23 07:00 10/21/23 07:00 10/21/23 07:00 10/21/23 07:00
Lab Results - Hematology
10/19/23 10/20/23 10/21/23
06:46 10:19 06:33
WBC 8.2 5.6 5.9
Lab Results - Chemistry
10/19/23 10/20/23 10/21/23
06:46 10:19 06:33
BUN 30 H 29 H 31 H
Creatinine 1.0 0.9 0.8
Estimated Creat Clear 58 65 75
Microbiology Results
10/19/23 10:49 Blood Culture - Preliminary
Blood/Venous No Growth in 48 hours- Final report to follow
10/17/23 09:54 Blood Culture - Preliminary
Blood/Venous Staphylococcus epidermidis
Gram Stain - Preliminary
10/17/23 08:28 Blood Culture - Preliminary
Blood/Venous Staphylococcus epidermidis
Gram Stain - Final
10/19/23 11:23 Blood Culture - Preliminary
Blood/Venous No Growth in 24 hours- Final report to follow
Therapeutic Drug Monitoring
Random Vancomycin 14.1 ug/ml 10/21/23 06:33
[2023-10-21] MEDS: VANCOCIN 275 MG IV (12:25)
--- NOTE | 2023-10-21 13:04 | W.PN.ID1 ---
Date of Service
Date of Service: October 21, 2023
Today's Communication
- dc Vancomycin; patient stable for dc from ID perspective
Assessment / Plan
# Coag-neg staphylococcus bacteremia from 2 sets of admission blood cultures drawn 1.5 hour apart.
# Fever 100.7 x 1 resolved
- Suspect CoNS are contaminants
- Patient without foreign bodies.
- Appreciate hospitalist repeating 2 sets of blood cultures this am BEFORE starting Vancomycin.
- dc Vancomycin; patient stable for dc from ID perspective
#Encephalopathy - resolved
# Additional medical history.
Asthma
Seizure
CVA
bilateral SDH
HTN
Afib
HFrEF
dyslipidemia
lung ca s/p right upper lobectomy
sleep apnea s/p uvulectomy
Chief Complaint
-: Bacteremia
Subjective / Review of Systems
afebrile
bp stable
without leukocytosis
cr stable
repeat blood cultures no growth to date
Vital Signs / Physical Exam
Vital Signs
Vital Signs
Temp Pulse Resp BP Pulse Ox
98.6 F 60 22 124/57 99
10/21/23 07:00 10/21/23 07:00 10/21/23 07:00 10/21/23 07:00 10/21/23 07:00
Physical Exam
Constitutional: No Acute Distress
Cardiovascular: Regular Rate and S1/S2; Negative Murmur or Rub
Pulmonary: Clear and Symmetric; Negative Wheezes or Rales
Gastrointestinal: Soft, Non Tender, Non Distended and Normal Bowel Sounds
Skin: Warm and Dry; Negative Rash or Jaundice
Objective Data
Lab Data
Lab Results
10/21/23 06:33
10/21/23 06:33
PT 22.7 Sec (11.4-14.6) H 10/21/23 06:33
INR 2.02 10/21/23 06:33
Estimated Creat Clear 75 ml/min 10/21/23 06:33
Total Bilirubin 0.6 mg/dl (0.2-1.3) 10/17/23 08:28
AST 52 U/L (17-59) 10/17/23 08:28
ALT 53 U/L (0-50) H 10/17/23 08:28
Alkaline Phosphatase 103 U/L (38-126) 10/17/23 08:28
Most recent labs reviewed.
Micro Results:
10/19/23 11:23 Blood Culture - Preliminary
Blood/Venous No Growth in 48 hours- Final report to follow
10/19/23 10:49 Blood Culture - Preliminary
Blood/Venous No Growth in 48 hours- Final report to follow
10/17/23 09:54 Blood Culture - Preliminary
Blood/Venous Staphylococcus epidermidis
Gram Stain - Preliminary
10/17/23 08:28 Blood Culture - Preliminary
Blood/Venous Staphylococcus epidermidis
Gram Stain - Final
10/18/23 Brain MRI: No acute intracranial abnormality noted. Chronic senescent changes.
10/17/23 CXR: Postsurgical changes in the right hemithorax. The lungs appear clear. Moderate cardiomegaly with no evidence for pulmonary edema.
Care Review
Plan reviewed with: Physician (dr espinoza dc)
[2023-10-21 15:00] VITALS: BP 113/94
--- NOTE | 2023-10-21 15:08 | W.PN.HOSP.TC ---
Today's Communication/Plan
-
dc now
Assessment / Plan
Assessment / Plan
MRI brain: No acute intracranial abnormality noted. Chronic senescent changes.
10/17/23 08:28 Blood/Venous Blood Culture - Preliminary
Staphylococcus epidermidis
10/17/23 08:28 Blood/Venous Gram Stain - Final
10/17/23 09:54 Blood/Venous Blood Culture - Preliminary
Staphylococcus epidermidis
10/17/23 09:54 Blood/Venous Gram Stain - Preliminary
Change in mental status, concern that acute process was a transient seizure event
-imaging above, acute CVA has been ruled out
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 Febrile 10/18/23PM, no further fevers.
-okay to stop IV vanco as per ID,
-neuro input appreciated
-Patient was recently here and did had intermittent episodes of abrupt change in mental status where he was seen by neurology and his Vimpat was increased to 150 mg twice daily.� His carbamazepine level was high prior to discharge so his
carbamazepine decreased to 400 mg twice daily. Currently also on Keppra 1500mg BID.
Paroxysmal atrial fibrillation
-Coumadin increased to 10mg HS
-resume pre admit Coumadin dosing
Coumadin managed by [facility]
Essential hypertension:
-Multidrug-resistant
-Clonidine was decreased last admission due to bradycardia
-Labetalol is on hold, current BPs acceptable
-cont Minoxidil
Chronic HFrEF:
-with Mild-mod
-Lasix is currently on hold
COREY
Hyponatremia
FULL/coumadin
complex situation, ID believes Blood Cx contaminant. Pt back to baseline status, will dc now
More than 30 minutes spent in discharge including
Final examination of the patient
Summarizing hospital stay
Instructions for continuing care to all relevant caregivers
Preparation of discharge records, prescriptions, and referral forms
Total time spent (in minutes): 45
Anticipated Discharge: Today
Subjective/Interval History
-
Date of Service: October 21, 2023
believes mental status at baseline
Objective Data
-
Labs:
Laboratory Results
10/21/23
06:33
WBC 5.9
Hgb 9.5 L
Hct 27.0 L
Plt Count 220
PT 22.7 H
INR 2.02
Sodium 136
Potassium 4.6
Chloride 101
Carbon Dioxide 29
BUN 31 H
Creatinine 0.8
Glucose 101 H
Calcium 9.6
Vital Signs:
Vital Signs
Temp Pulse Resp BP Pulse Ox
98.6 F 60 22 124/57 99
10/21/23 07:00 10/21/23 07:00 10/21/23 07:00 10/21/23 07:00 10/21/23 07:00
I&O
10/20/23 10/21/23 10/22/23
06:59 06:59 06:59
Intake Total 800 / 800
Output Total 275 / 275 350 / 350
Balance -275 / -275 450 / 450
Review of Systems
-
History Source: Patient and Family ( present)
Constitutional: Denies Fever
EENT: Reports No Symptoms Reported
Respiratory: Reports No Symptoms
Cardiac: Reports No Symptoms
Abdomen/GI: Reports No Symptoms
Genitourinary: Reports No Symptoms
Physical Exam
-
General: Well Developed, Well Nourished and No Apparent Distress
HEENT: Normocephalic, Atraumatic and Moist Mucous Membranes
Respiratory: Clear to Auscultation; Negative Wheezes, Rales or Rhonchi
Cardiac: Regular Rhythm and S1/S2
GI: Soft, Nontender and Nondistended
Musculoskeletal: No Clubbing, No Cyanosis and No Edema
Neuro: Awake, Alert and Oriented
--- NOTE | 2023-10-21 15:27 | W.DS.TRANS ---
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
-
Discharge Instructions:
Discharge Diagnosis/Procedures Breakthrough Seizure
Diet No added salt
Activity With Walker
Driving Restrictions No driving
Bathing Restrictions None
Blood Work INR on Monday, the per clinic
CBC, CMP in 1-2 weeks
Other Services VN
Instructions:
Stand-Alone Forms:
Changes to Home Medications: Yes
Discharge Medications:
DC Medications w/original date entered in [employer]
minoxidil 10 mg tablet 10 mg PO BID Blood Pressure 01/22/23
labetalol 200 mg tablet 600 mg PO .SEE BELOW Blood Pressure 02/27/23
carbamazepine 200 mg tablet,extended release,12 hr 400 mg PO BID Seizures #0 tabs 10/15/23
lacosamide 100 mg tablet (Vimpat) 150 mg PO BID Seizures #0 tabs 10/15/23
clonidine 0.2 mg/24 hr weekly transdermal patch 0.2 mg transdermal WE Blood Pressure 10/17/23
cyanocobalamin (vitamin B-12) 1,000 mcg tablet 1,000 mcg PO DAILY Supplement 10/17/23
furosemide 40 mg tablet 40 mg PO DAILY Fluid Retention/Swelling 10/17/23
levetiracetam 500 mg tablet 1,500 mg PO BID seizures 10/17/23
pantoprazole 40 mg tablet,delayed release 40 mg PO DAILY Gastrointestinal Issue 10/17/23
polyethylene glycol 3350 17 gram oral powder packet (HealthyLax) 17 g PO DAILY constipation 10/17/23
warfarin 1 mg tablet 1 mg PO TUWETHFRSA@1800 Blood Clot Prevention/Tx 10/17/23
warfarin 7.5 mg tablet 7.5 mg PO SUMO@1800 Blood Clot Prevention/Tx 10/17/23
warfarin 7.5 mg tablet 7.5 mg PO TUWETHFRSA@1800 Blood Clot Prevention/Tx 10/17/23
Home Medication Changes
stop Labetalol, follow BP and bring reading to Dr. Berkowitz
Pending Results: No
--- NOTE | 2023-10-21 15:55 | CM ---
Patient seen bedside.
Plan: d/c home with [facility]
== END 2023-10-21 17:00 | disposition home health service (06) | DRG 100 ==
LOC: 4 WEST ACU 09:34
PROVIDERS: Internal Medicine; Physician Assistant; Student in an Organized Health Care Education/Training Program; ADMITTING PHYSICIAN Internal Medicine; ATTENDING PHYSICIAN Internal Medicine; CONSULT PHYSICIAN Internal Medicine Infectious Disease; EMERGENCY PHYSICIAN Emergency Medicine; FAMILY PHYSICIAN Internal Medicine
DX: G40.909 Epilepsy, unspecified, not intractable, without status epilepticus (principal); G93.41 Metabolic encephalopathy; I50.22 Chronic systolic (congestive) heart failure; Z16.24 Resistance to multiple antibiotics; E87.1 Hypo-osmolality and hyponatremia; R78.81 Bacteremia; Z79.01 Long term (current) use of anticoagulants; I11.0 Hypertensive heart disease with heart failure; I1A.0 Resistant hypertension; I35.0 Nonrheumatic aortic (valve) stenosis; I48.0 Paroxysmal atrial fibrillation; G47.33 Obstructive sleep apnea (adult) (pediatric); Z86.73 Personal history of transient ischemic attack (TIA), and cerebral infarction without residual deficits
CPT/HCPCS: 70450; 70551; 71046; 80048; 80053; 80061; 80156; 80202; 80306; 81003; 82077; 82962; 83036; 83735; 84443; 85025; 85027; 85610; 87040; 87147; 87150; 87186; 87205; 92610; 97163; 97166; 97530; 99285

== ENCOUNTER 2023-10-27 13:37 | Inpatient (IN) | payer MEDICARE, OTHER, SELFPAY ==
[2023-10-27] VITALS (13 sets, daily range): BP systolic 125–166; BP diastolic 63–82; BMI 23.3; BMI 22.9
[2023-10-27 08:05] LABS: % Basophils 0.7 % (0-2); % Eosinophils 5.7 % (0-6); % Immature Granulocytes 0.2 % (0-0.5); % Lymphocytes 18.1 % (20.5-51.1); % Monocytes 11.3 % (1.7-9.3); Absolute Eosinophils 0.4 10^3/uL (0-0.7); Absolute Lymphocytes 1.1 10^3/uL (1.2-3.4); Absolute Monocytes 0.7 10^3/uL (0.1-0.6); Absolute Neutrophils 3.9 10^3/uL (1.4-6.5); Hematocrit 32.4 % (39.0-52.0); Hemoglobin 11.6 g/dL (13.0-18.0); Mean Corp Hgb Conc. 35.8 g/dL (33.0-37.0); Mean Corpuscular Hgb 33.8 pg (27.0-31.0); Mean Corpuscular Volume 94.5 fL (80.0-94.0); Nucleated Red Blood Cells % 0 % (-); Red Blood Cell Count 3.43 10^6/uL (4.70-6.10); Red Cell Dist. Width 11.9 % (11.5-14.5); White Blood Cell Count 6.1 10^3/uL (4.8-10.8)
[2023-10-27 08:19] LABS: ALT (SGPT) 41 U/L (0-50); AST (SGOT) 42 U/L (17-59); Albumin 4.5 g/dl (3.5-5.0); Alkaline Phosphatase 106 U/L (38-126); Blood Urea Nitrogen 39 mg/dl (9-20); Carbon Dioxide 30 mmol/L (22-30); Chloride 101 mmol/L (98-107); Glucose 131 mg/dl (70-99); Potassium 4.8 mmol/L (3.5-5.1); Sodium 136 mmol/L (135-145); Total Bilirubin 0.6 mg/dl (0.2-1.3); eGFR > 60.00
[2023-10-27 08:40] LABS: Mean Platelet Volume 10.1 fL (7.4-10.4); Platelet Count 245 10^3/uL (130-400)
--- NOTE | 2023-10-27 10:05 | ED.GENMED ---
History of Present Illness
General
Chief Complaint: Change in Mental Status
Source: patient, records and spouse
Exam Limitations: dementia
Time Seen by Provider: 10/27/23 09:06
Nursing documentation reviewed up to this point in time: agreed with
Travel History
Have you had any contact with someone who has COVID-19?: No
Do you have any symptoms of coronavirus? Fever > 100 degrees, chills, cough, shortness of breath, sore throat, loss of taste or smell, muscle aches, or headache?: No
History of Present Illness
History of Present Illness:
Patient is an 83-year-old male who presents to the emergency department after an episode this morning of being disoriented and not recognizing where he was. Patient seems to be back to his baseline at this time. Patient was discharged 6 days ago
from the hospital after similar episodes. His medications were adjusted. Patient had sad resistant hypertension in the past and the medications were lowered. His seizure medications were adjusted. Patient has not had fever or chills. For the
60s that he has been out of the hospital he has been doing very well according to his . Patient denies headache or chest pain. Patient denies shortness of breath. Patient denies any GI symptoms. Patient denies any neck or back pain. Patient
had no seizure activity. Patient's not had any upper respiratory type symptoms. Patient's MRI showed chronic changes but nothing acute. Couple of years ago the patient had been on hospice after multiple falls. However after 6 months he was taken
off of hospice.
Past History
Past History
ED Past Medical History: Asthma, Cancer (Lung), CHF, CVA, HTN, Hypercholesterolemia, Seizures and Other (COREY, C-pap at night, Meningitis, )
ED Past Surgical History: Tonsilectomy and Other (right lobectomy, Uvulectomy)
Social History
Tobacco: Non-smoker
Alcohol: None
Drug: None
Personal:
Living: with family
Employment: Retired
Family History
Family History: Other (reviewed and Noncontributory)
Review of Systems
Review of Systems
All Other Systems: ROS reviewed and negative except as documented in HPI and ROS
Constitutional: Reports no symptoms
EENT: Reports no symptoms
Respiratory: Reports no symptoms
Cardiac: Reports no symptoms
ABD/GI: Reports no symptoms
: Reports no symptoms
Musculoskeletal: Reports no symptoms
Skin: Reports no symptoms
Neurological: Reports other (Disorientation); Denies headache
Hematologic/Lymphatic: Reports no symptoms
Phy Exam
Physical Exam
Physical Exam:
Physical Exam
General: No apparent distress, alert and appropriate, well nourished, well hydrated
HENT: Normocephalic, supple with no lymphadenopathy, no thyromegaly
Eyes: Clear sclera, conjuctiva without injection
Heart: Regular rhythm and rate. No S3, S4. No murmur. No NVD
Lungs: No respiratory distress, no stridor, lung sounds clear and equal bilaterally
Abdomen: Soft, nontender, no organomegaly, no CVA tenderness, BS good
Neuro: Alert and oriented to person, CN II - XII intact, no motor focality, no cerebellar dysfunction
Skin: no rash
Psychiatric: well kept. interactive and cooperative
Extremities: No edema, cyanosis, tenderness
Course
Orders/Labs/Results
Orders:
Orders
10/27/23 07:53
Complete Blood Count/With Diff Urgent
Comprehensive Metabolic Panel Urgent
10/27/23 09:10
Electrocardiogram (*1) Urgent
Reason for Study: Chest Pain
Cardiac Monitoring- Treatment ONCE
EKG- Treatment ONCE
IV Insert/Care/Rem.- Treatment PRN
10/27/23 09:22
Speech Screening from [facility] Routine
10/27/23 09:51
Add On- LAB Urgent
Tests Added?: tegretol and keppra levels
10/27/23 10:12
Consult Neurology [NEUROLOGY CONSULT] Urgent
Consulting Provider: Vladislav Correia
Was physician already notified: Yes
Reason for consult: change in mental status
10/27/23 10:43
EEG, 41-60 minutes Routine
Reason for Exam: ? CPS
Neurology Consult:: DR. YODER
10/27/23 10:54
Keppra (Levetiracetam) [S] Urgent
Comment: PLEASE DRAW; CANNOT ADD ON
Tegretol (Carbamazepine) Urgent
Comment: PLEASE DRAW; CANNOT ADD ON
10/27/23 11:50
Lorazepam [Ativan] 2 mg IV NOW ONE
10/27/23 11:51
EEG, Continuous [Continuous EEG monitoring IP] Urgent
Reason for Study: non convulsive seizure
10/27/23 11:55
Lacosamide [Vimpat] 300 mg IV Q12
10/27/23 12:00
Levetiracetam Injectable [Keppra] 1,500 mg IV Q12
10/27/23 12:22
Neurological Checks As Directed
Frequency: Per unit guidelines
10/27/23 13:00
Carbamazepine [Tegretol] 400 mg PO TID
10/27/23 13:20
Admit/Transfer Patient As Directed
Co-Sign Provider:
Level of Care: Inpatient admission
Assign to:: Telemetry
Physician / Group: sherice
Diagnosis: nonconvulsive status epileptius
Reason for Telemetry: Arrhythmia
Date to Stop Telemetry: 10/30/23
Time to Stop Telemetry: 11:00
Reason for Hospitalization: nonconvulsive status epileptius
Expected length of stay greater than two midnights?: Yes
ELOS- Estimated Length of Stay in days: 2
I certify the patient meets the requirements for IP care: Yes
10/27/23 13:22
Code Status As Directed
Resuscitation Status: Full Code
10/27/23 13:[address] See Dose Instructions PO NOW STA
Discontinue all Active Warfarin orders?: Yes
Abnormal Lab Results
10/27/23
07:53
RBC 3.43 L 10^6/uL
(4.70-6.10)
Hgb 11.6 L D g/dL
(13.0-18.0)
Hct 32.4 L %
(39.0-52.0)
MCV 94.5 H fL
(80.0-94.0)
MCH 33.8 H pg
(27.0-31.0)
Absolute Lymphs (auto) 1.1 L 10^3/uL
(1.2-3.4)
Absolute Monos (auto) 0.7 H 10^3/uL
(0.1-0.6)
Lymphocytes % 18.1 L %
(20.5-51.1)
Monocytes % 11.3 H %
(1.7-9.3)
BUN 39 H mg/dl
(9-20)
Glucose 131 H mg/dl
(70-99)
10/27/23 07:53
10/27/23 07:53
Vital Signs
Initial and Last Documented VS:
Initial Vital Signs
Temp Pulse Resp BP Pulse Ox
98 F 70 18 147/72 99
10/27/23 07:38 10/27/23 07:38 10/27/23 07:38 10/27/23 07:38 10/27/23 07:38
Last Documented Vital Signs
Temp Pulse Resp BP Pulse Ox
98 F 69 16 134/66 95
10/27/23 07:38 10/27/23 14:15 10/27/23 14:15 10/27/23 14:00 10/27/23 14:15
*Radiology
Radiology exam reviewed: other (na)
*Pulse Oximetry
Patient hypoxic: no
*EKG
Interpreted by ED Provider?: Yes
EKG Intrepretation Date: 10/27/23
EKG Intrepretation Time: 15:28
Interpretation: normal
Comparison EKG: no comparison EKG present
Heart Rate: 62
Rate: normal
Rhythm: sinus
[place]: normal axis
Interval: normal interval
QRS Pattern: normal QRS
Ischemia: no ischemia
*Aviation Safety Equipment Technician Interpretation
Rate: normal
Interpretation: normal
Heart Rate: 62
Rhythm: sinus
*Critical Care Note
Total Time (30-74mins, 75-104mins- exclusive of procedures): Not Applicable
Update Note
Update Note:
Patient had an EEG done and during the EEG he was showing seizure activity however patient is conscious and talking at the time. Patient will be admitted for status.
ED Attending Note
-
Portions of this chart may have been created with voice recognition software.� Occasional wrong word or��sound alike� substitutions may have occurred due to the inherent limitations of voice recognition software.
Discharge Plan
Departure
Patient Disposition: Admit
Date of Disposition: 10/27/23
Time of Disposition: 12:05
Admit to: Telemetry
Admit to doctor: Hospitalist
Presentation/result/management discussed w/ accepting MD/DO: Neurology
Condition: Fair
Covid-19: Not Applicable
Discharge Problem:
Epilepsy with status epilepticus
Interventions
Interventions:
*Risk Screen - Suicide Last Done: 10/27/23 07:38
*General Assessment Last Done: 10/27/23 07:38
*Neglect/Abuse Screening Last Done: 10/27/23 07:38
ED- Fall Risk Assessment Last Done: 10/27/23 09:03
*ED COVID-19 Vaccine History Last Done: 10/27/23 08:59
ED- Pulmonary Assessment Last Done: 10/27/23 09:04
ED- Neurological Assessment Last Done: 10/27/23 09:04
ED- Cardiac Assessment Last Done: 10/27/23 09:04
ED Swallowing Screen Last Done: 10/27/23 09:21
--- NOTE | 2023-10-27 10:56 | EDRN ---
Dr. Correia in room w/pt and spouse at this time.
--- NOTE | 2023-10-27 11:30 | CON.NEURO4 ---
Consultation - Neurology 4
-
CONSULTING PHYSICIAN: Adam Correia
REFERRING PHYSICIAN: ER
DICTATED BY: Adam Correia
DATE/TIME OF REQUEST: 10/27/23
DATE/TIME OF CONSULTATION: 10/27/23
Reason for Consultation: Behavior changes, history of epilepsy
History of Present Illness:
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
over the past couple of days. He had a recent hospitalization for encephalopathy thought to be multifactorial.
Per the patient's he was noted to have some odd behaviors not usual for him like walking around the house without a walker, leaving the water on at the bathroom sink while shaving, showing significant short-term memory impairment. Patient has
not had a generalized tonic-clonic seizure in a few years now and the patient's has not seen any typical seizures recently. He has been compliant with seizure medications including carbamazepine lacosamide and levetiracetam. There have not
been any recent illnesses in the patient since being discharged home no fever abdominal pain diarrhea sore throat vomiting cough or congestion.
Patient's does feel like his functional and mental status have had a significant change since around 2 to 3 months ago, at that time they would have gone out to go to dinner shopping but at this time his cognitive capacities has had a
significant change in the behavior more recently were significantly abnormal for him.
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
stenosis
Surgical History:� RUL lung resection 2015, melanoma excision
Family History:� Brother had cerebral aneurysm
Social History:� and lives with his . Retired. No tobacco, alcohol, or illicit drug use.
Allergies:� Hydralazine, pollen
Home Medications:
Review of Symptoms:
Patient denies any fever, headache, chest pain, shortness of breath, GI or symptoms.
Physical Exam:
Elderly man appears his stated age in no acute distress no signs of head or neck trauma no meningismus eyes are clear oropharynx is clear heart rate regular breathing unlabored abdomen soft nontender no lower extremity edema or rash or joint
deformity
Neurologic Examination:
Patient is awake and alert he is oriented to the president, he can recite the months of the year forwards correctly, not able to do so backwards starts with June and goes forwards through the months, some difficulty with subtraction
and calculation, memory recall 0/5 after 7 minutes, no aphasia, no neglect
Pupils are 3 mm equal round react light bilaterally, visual costa are normal, smile symmetric no dysarthria tongue is midline no ptosis
Motor examination shows normal bulk and tone no pronator drift no parkinsonism or rigidity or tremor power is 5/5 for shoulder abduction arm flexion hip flexion
Intact to light touch
Reflexes diminished throughout
No ataxia on finger-nose testing bilateral
Gait exam deferred
Neuro Imaging: No new neurologic imaging
Impressions
1. 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 Has had mild behavioral change and decline in mental status over the past several days. Interestingly was awake and conversant with mild cognitive impairments but with
extremely abnormal EEG.
2. Likely cognitive impairment if not dementia at baseline
3. Chronic epilepsy on 3 anti seizure medications, epilepsy appears to be focal, not controlled, with status epilepticus. Has not had generalized tonic clonic seizures in years.
Recommendations:
1. Given 2 mg IV Ativan with resolution of non convulsive status epilepticus on EEG
2. Continuous EEG monitoring
3. Lacosamide 300 mg q12hr IV, Levetiracetam 1500 mg q12hr IV, Carbamazepine 400 mg BID PO
4. With known history of epilepsy requiring 3 seizure medications, no leukocytosis or fever or headache I do not feel patient would require lumbar puncture, no suspicion for COMPUTER SECURITY SPECIALIST infection
5. Neurologic checks
6. 2 mg Ativan PRN will be guided by continuous EEG
7. Follow routine labwork
Will follow
Discussed patient care with: Patient and his , Dr Abdalla
[2023-10-27] MEDS: ATIVAN 2 MG IV (11:58)
--- NOTE | 2023-10-27 11:58 | EDRN ---
Pt was connected to EEG machine and it showed seizure activity and Dr. Correia ordered a stat dose of ativan 2mg IV which was administered at this time.
--- NOTE | 2023-10-27 12:05 | EDRN ---
Pt able to talk and have controlled movement during the seizure. Dr. Correia said pt may need another dose of ativan if activity continues.
--- NOTE | 2023-10-27 12:34 | EDRN ---
Per Dr. Correia pt is having seizures but symptoms area only able to be seen via EEG. Pt is presently awaiting admission to ICU and on continuous EEG monitoring with Dr. Correia at this time while in ER.
--- NOTE | 2023-10-27 12:36 | EDRN ---
Pt resting quietly on stretcher at this time, napping. EEG waveform w/ only slight movement.
--- NOTE | 2023-10-27 12:56 | EEG.RPT ---
Electroencephalogram Report
Recording
Date of EE10/27/23
Length of EEG recordin minutes
Done with Video Recording: Yes
Patient Status: Inpatient
Recording Conditions: Awake and Drowsy
Hyperventilation Performed: No
Photic Stimulation Performed: Yes
Hand Dominance: Unknown
Report
LESS THAN 1 HOUR EEG INTERPRETATION:
Study is consistent with non-convulsive status epilepticus in the correct clinical context, epileptiform features to respond to and stop after Lorazepam administration
CLINICAL CORRELATION:
Given patient's history of known epilepsy and recent behavior and mental status changes, this is a highly abnormal EEG with epileptiform features and no overt convulsive or subtle outward seizure signs, it is consistent with non-convulsive
epilepticus which responded to IV benzodiazepine treatment.
Clinical correlation is advised.
METHODS:
A 21 channel digitized electroencephalogram (EEG) was performed using the 10/20 international system of electrode placement and one-lead of ECG recorded. Study lasted 53 minutes.
ELECTROENCEPHALOGRAPHER IMPRESSION(S):
Quality of study
Good
Background
Majority of the study is a background of high amplitude epileptiform 4 hz (Delta frequency) activity, after lorazepam administration background of alpha/theta activity appears
There were no significant asymmetries of background activity noted.
Sleep
Drowsiness present
Photic Stimulation
No activation
ECG
Normal sinus rhythm
Abnormalities
The initial 35 minutes of the study shows symmetric bilateral high amplitude rhythmic epileptiform activity, after administration of Lorazepam at 31 minutes into the study, after 6-7 minutes at 38 minutes into the study the epileptiform activity
begins to decrease and can be confidently be said to occupy less than 50% of the recording.
--- NOTE | 2023-10-27 13:07 | EDRN ---
Dr. Ramos in to see pt at this time.
[2023-10-27] MEDS: KEPPRA 1500 MG IV ×2 (13:09→19:53)
[2023-10-27] MEDS: VIMPAT 300 MG IV ×2 (13:14→19:52)
[2023-10-27] MEDS: TEGRETOL 400 MG PO ×2 (13:16→17:32)
--- NOTE | 2023-10-27 13:20 | EDRN ---
Dr. Rodríguez was checked whether to awaken pt to administer tegretol and he said to awaken pt if possible. Pt remains very somnolent at this time.
--- NOTE | 2023-10-27 13:35 | HPS.HSE ---
Family Physician
-
Family Physician: Robin Garcia
Chief Complaint
-
altered mental status
History of Present Illness
83-year-old male past medical history of seizure disorder, paroxysmal atrial fibrillation, chronic HFrEF, mild to moderate aortic stenosis, multidrug-resistant hypertension, obstructive sleep apnea, hyponatremia presenting with change in mental
status today. He was disoriented and not recognizing where he was this morning. He had the water running and was supposed to brush his teeth placed on the toothbrush he did not know what to do. He was in his normal state of health yesterday.
Patient did not have any fevers or chills. No headache or chest pain. No shortness of breath. No GI symptoms. No neck or back pain. No seizure activity. No upper respiratory symptoms.
Patient was previously on hospice after multiple falls however was taken off hospice 6 months ago.
Patient was recently admitted on 10/19 for altered mental status secondary to metabolic encephalopathy. He had blood cultures which showed Staphylococcus epidermidis 2/2 and he was treated with vancomycin. ID thought this was due to contaminant and
antibiotic was stopped. Patient was also thought to have breakthrough seizures but patient's mental status went back to baseline and patient and decided to take patient home. He also has a history of multidrug-resistant hypertension and blood
pressure medications were decreased.
No alcohol use in 30 years. No Smoking or drugs.
Medical History
Past Medical History
Past Medical History: Reports Other (seizure disorder, paroxysmal atrial fibrillation, chronic HFrEF, mild to moderate aortic stenosis, multidrug-resistant hypertension, obstructive sleep apnea, hyponatremia)
Past Surgical History: Reports Other (Tonsilectomy and Other (right lobectomy, Uvulectomy))
Social History
Tobacco: Non-smoker
Alcohol: None
Drug: None
Family History
Family History: Not pertinent
Allergies / Home Medications
Allergies reflects when Allergies were last updated in [facility].
Home Medications with original date entered in [facility]
Allergy/Medication List:
Allergies
Allergy/AdvReac Type Severity Reaction Status Date / Time
hydralazine Allergy Unknown Verified 10/09/23 01:59
pollen extracts Allergy nasal Verified 10/09/23 01:59
symptoms
Home Medications
minoxidil 10 mg tablet 10 mg PO BID Blood Pressure 01/22/23
carbamazepine 200 mg tablet,extended release,12 hr 400 mg (2 x 200 mg) PO BID Seizures #0 tabs 10/15/23
lacosamide 100 mg tablet (Vimpat) 150 mg (1.5 x 100 mg) PO BID Seizures #0 tabs 10/15/23
clonidine 0.2 mg/24 hr weekly transdermal patch 0.2 mg transdermal WE Blood Pressure 10/17/23
cyanocobalamin (vitamin B-12) 1,000 mcg tablet 1,000 mcg PO DAILY Supplement 10/17/23
furosemide 40 mg tablet 40 mg PO DAILY Fluid Retention/Swelling 10/17/23
levetiracetam 500 mg tablet 1,500 mg PO BID seizures 10/17/23
pantoprazole 40 mg tablet,delayed release 40 mg PO DAILY Gastrointestinal Issue 10/17/23
polyethylene glycol 3350 17 gram oral powder packet (HealthyLax) 17 g PO DAILYPRN PRN constipation 10/17/23
warfarin 1 mg tablet 1 mg PO DAILY@1800 Blood Clot Prevention/Tx 10/17/23
warfarin 7.5 mg tablet 7.5 mg PO DAILY@1800 Blood Clot Prevention/Tx 10/17/23
Review of Systems
-
History Source: Patient and Family
A 12 point ROS was completed and negative except as noted: No
Physical Exam
Vital Signs
Vital Signs
Temp Pulse Resp BP Pulse Ox
98 F 65 17 125/63 98
10/27/23 07:38 10/27/23 13:15 10/27/23 13:15 10/27/23 13:00 10/27/23 13:15
Physical Exam
General: Well Developed, Well Nourished and No Apparent Distress
HEENT: NormoCephalic, Moist mucous membranes and Atraumatic
Respiratory: Clear
Cardiac: S1/S2 and Regular Rhythm; No Murmur or Rub
GI: Soft, Non Tender, Non Distended and Normal Bowel Sounds; No Organomegaly
Rectal: Deferred by Provider
Musculoskeletal: No Clubbing, No Cyanosis and No Edema
Skin: No Rash
Neuro: Nonfocal/grossly intact
Laboratory Results
-
10/27/23 07:53
10/27/23 07:53
Laboratory Results
Total Bilirubin 0.6 mg/dl (0.2-1.3) 10/27/23 07:53
AST 42 U/L (17-59) 10/27/23 07:53
ALT 41 U/L (0-50) 10/27/23 07:53
Alkaline Phosphatase 106 U/L (38-126) 10/27/23 07:53
Data Reviewed
-
Lab Data: Labs Reviewed by me
Old Records: Reviewed
Impression/Plan
-
IMPRESSION:
PLAN:
# Recurrent episodes of altered mental status secondary to nonconvulsive status epilepticus
# History of grand mal/petit mall seizures
-Neurology following
-IV Ativan given
-Patient on continuous EEG monitoring which showed epileptiform activity which improved with Ativan
-Neurology increase carbamazepine to 400 3 times daily
-Lacosamide increased to 300 twice daily
-Keppra maintained at 1500 twice daily
-Keppra level pending
-Neuro checks per protocol
-Speech screening, allow diet and PO medications as patient able, although at this time may not be able to due to mental status
-Hold Coumadin in case LP is necessary at some point
Paroxysmal atrial fibrillation
-Hold Coumadin
-Heparin drip instead
Chronic HFrEF
-Continue Lasix
Mild to moderate aortic stenosis
Multidrug-resistant hypertension
-Continue clonidine, minoxidil
Obstructive sleep apnea
Full code
DVT prophylaxis�heparin
regular
--- NOTE | 2023-10-27 14:53 | EDRN ---
This RN thought pt was supposed to be an ICU admit. Dr. Genao downgraded pt to TEL admit. This RN TT'd Dr. Correia to make sure that pt okay for TEL admit and he returned saying it is.
--- NOTE | 2023-10-27 15:10 | EDRN ---
endoscopic technician took EEG equipment to pt's admission room at this time.
--- NOTE | 2023-10-27 15:10 | EDRN ---
entry level installation technician in taking EEG machine to room 318.1 at this time. When she leaves ED PCT will take pt to admission bed.
[2023-10-27 15:50] LABS: Hematocrit 30.7 % (39.0-52.0); Hemoglobin 11.1 g/dL (13.0-18.0); Mean Corp Hgb Conc. 36.2 g/dL (33.0-37.0); Mean Corpuscular Hgb 34.4 pg (27.0-31.0); Mean Platelet Volume 9.9 fL (7.4-10.4); Platelet Count 285 10^3/uL (130-400); Red Blood Cell Count 3.23 10^6/uL (4.70-6.10); Red Cell Dist. Width 11.9 % (11.5-14.5); White Blood Cell Count 5.9 10^3/uL (4.8-10.8)
[2023-10-27 16:00] LABS: APTT 35.2 Sec (23.4-35.0)
[2023-10-27] MEDS: HEPARIN 25000 UNITS/250 ML IV (16:31)
[2023-10-27] MEDS: LONITEN 10 MG PO (19:57)
[2023-10-27 20:42] LABS: Glucose - Point of Care 115 mg/dl (70-99)
[2023-10-27] MEDS: ZOFRAN 4 MG IV (20:59)
--- NOTE | 2023-10-27 21:05 | PTCARENOTE ---
PCT reported to this RN that patient was vomiting. Patient assessed and found to be pale, diaphoretic, and lethargic. Patient now with garbled speech. Glucose 115, BP 175/86, HR 88, Normal Sinus Rhythm noted on tele monitor with no arrhythmia noted
in tele history. Patient able to smile, stick out tongue, and raise arms when prompted. Patient able to answer orientation questions but slow and garbled speech noted Pupils reactive to light but patient continues to stare blankly. ANNE Schwab called
and asked to come assess patient STAT, reported to ANNE that this is a drastic chage from earlier Neuro check. Zofran given as ordered. Care ongoing.
[2023-10-27 21:29] LABS: B.E. 7.7 mmol/L; HCO3 33.2 mmol/L (21-28); PCO2 50 mmHg (35-48); PO2 81 mmHg (83-108); pH 7.43 (7.35-7.45)
--- NOTE | 2023-10-27 21:35 | PTCARENOTE ---
Patient remains somnolent. Patient unable to safely take any pills at this time. Unable to take 2200 Tegretol. ANNE Schwab made aware. No new orders received. Care ongoing.
[2023-10-27] MEDS: TEGRETOL PO (21:47)
[2023-10-27] MEDS: COMPAZINE 10 MG IV (22:20)
[2023-10-27 22:32] LABS: APTT 67.5 Sec (23.4-35.0)
--- NOTE | 2023-10-27 23:40 | PTCARENOTE ---
Patient again vomited a large amount of undigested food. Zofran ineffective. Patient remains somnolent and unable to stay awake for more then a few seconds at a time. Garbled, incoherent speech continues. This RN again voiced concern to ANNE Schwab
that patient looks very unwell and that this is a big change in patient status since initial neuro assessment at 1935. Order for Compazine received, no other orders received at this time. Care ongoing.
[2023-10-28 03:07] VITALS: BP 121/74
--- NOTE | 2023-10-28 05:58 | W.PN.UPDATE ---
Update Note
Progress Note Update
RN notified STREET ROLLER ENGINEER 'patient not looking well' stable VS 158/82 HR 80, 97% RA , 98.1,BS 115. Patient seen, and noted patient admitted with change in MS which is not new. Patient is alert to name and noise, mildly lethargic likely due to the medication
lacosamide, Ativan, Keppra. EEG results noted. was recently admit with same diagnoses Altered Mental status and MRI Brain 10/18/23 with No acute intracranial abnormality noted. Chronic senescent changes. ABG ordered to rule out Hypoxia as patient
has COREY. ABG negative. Previous provider notes read and consulted with Dr Palacio. Will monitor patient overnight for new seizures
Patient with vomiting episode relieved with Compazine, No abdomen distention, or Abdomen pain. Afebrile with normal VS.
--- NOTE | 2023-10-28 07:01 | EEGC.RPT ---
Continuous EEG Report
Recording
Start Date of Data Reviewed: 10/27/23
Start Time of Data Reviewed: 12:19
End Date of Data Reviewed: 10/28/23
End Time of Data Reviewed: 07:00
Type of EEG: Continuous
Done with Video Recording: Yes
Study Sequence: Initiation of Study
Electrocardiogram: Unremarkable
Report
CONTINUOUS EEG REPORT
EEG INTERPRETATION:
Mildly abnormal study for age based on generalized slowing demonstrated bihemispherically equally
CLINICAL CORRELATION:
This study was suggestive of mild bihemispheric cortical dysfunction. No epileptiform features were demonstrated.
Clinical correlation is advised.
METHODS:
A 21-channel digital electroencephalogram (EEG) was performed at the bedside. The 10/20 international system of electrode placement was used with ECG and lateral/vertical eye movements recorded. Video was recorded. Duration of this recording 16
hours 41 minutes.
IMPRESSION(S):
Quality of study
Good
Background
Medium amplitude alpha and theta during the awake state
Posterior dominant rhythm 9-10 hz seen which attenuates with eye opening
No background asymmetry
Sleep
Drowsiness present
Stage 1 sleep seen
Hyperventilation
Not performed
Photic Stimulation
Not performed
ECG
Normal rhythm
Abnormal Activity
Moderate diffuse slowing, no epileptiform features or seizures seen
--- NOTE | 2023-10-28 07:06 | W.PN.NEURO.1 ---
Today's Communication / Plan
-
-Keep Carbamazepine at 200 mg BID PO
-Decrease Lacosamide to 100 mg BID IV and Levetiracetam 1000 mg q12hr IV
-Continue continuous EEG
-Follow blood work
-Follow mental status and clinically for seizure
-Lorazepam IV for seizures as deemed by EEG
Discussed with patient and his
Will follow
Neuro Assessment/Plan
Assessment
Impressions
1. 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 Has had mild behavioral change and decline in mental status over the past several days. Interestingly was awake and conversant with mild cognitive impairments but with
extremely abnormal EEG.
2. Likely cognitive impairment if not dementia at baseline
3. Chronic epilepsy on 3 anti seizure medications, epilepsy appears to be focal, not controlled, with status epilepticus. Has not had generalized tonic clonic seizures in years.
Carbamazepine level of 10, in the therapeutic range
No sign that infection triggered the status epilepticus
Status epilepticus appears most likely due to chronic epilepsy no clear trigger, has been compliant with medications, no severe sleep deprivation recently or new medications
Vomiting overnight could be due to higher doses of anti seizure medications on top of CKD
Subjective/Objective
Subjective Data
Date of Service: October 28, 2023
Overnight noted to have lethargy, normal vital signs, episode of vomiting, no further seizures seen on EEG, patient awakes, no complaints
Objective Data
Vital Signs
Temp Pulse Resp BP Pulse Ox
98.5 F 87 16 121/74 95
10/28/23 03:07 10/28/23 03:07 10/28/23 03:07 10/28/23 03:07 10/28/23 03:07
APTT 67.5 Sec (23.4-35.0) H 10/27/23 22:15
Sodium 136 mmol/L (135-145) 10/27/23 07:53
Potassium 4.8 mmol/L (3.5-5.1) 10/27/23 07:53
BUN 39 mg/dl (9-20) H 10/27/23 07:53
Glucose 131 mg/dl (70-99) H 10/27/23 07:53
Calcium 10.0 mg/dl (8.4-10.2) 10/27/23 07:53
Patient Allergies
hydralazine Allergy (Verified 10/09/23 01:59)
Unknown
pollen extracts Allergy (Verified 10/09/23 01:59)
nasal symptoms
Review of Systems
-
History Source: Patient
All other systems: Reviewed and negative
Constitutional: No Symptoms
EENT: No Symptoms Reported
Respiratory: No Symptoms
Cardiac: No Symptoms
Abdomen/GI: No Symptoms
Genitourinary: No Symptoms
Musculoskeletal: No Symptoms
Skin: No Symptoms
Neuro: See existing Neuro Note
Endocrine: No Symptoms
Hematologic / Lymphatic: No Symptoms
Allergy / Immunology: No Symptoms
Physical Exam
-
General: Comfortable
Eyes: No Ptosis
HEENT: Normocephalic
Neck: No Bruits Bilaterally
Respiratory: Clear to Auscultation
Cardiac: Regular Rhythm
GI: Normal Bowel Sounds
Skin: Unremarkable
Extremities: No Clubbing
Psych: Negative Agitated
Extended Neurological Exam
Mood & Affect: Mood Unremarkable and Affect Unremarkable
Attention Span & Concentration: Awake, Alert, Interactive and Closes Eyes after Stimulation
Memory: Reduced
Tremor: Hand Tremor Absent
Involuntary Movement: None
Speech: Quality Unremarkable and Quantity Unremarkable; Negative Expressive Aphasia, Receptive Aphasia or Dysarthric
Cranial Nerve II: Left Eye: Pupillary Reactivity Unremarkable, Pupillary Size Unremarkable and Visual Brandt Intact
Cranial Nerve II: Right Eye: Pupillary Reactivity Unremarkable, Pupillary Size Unremarkable and Visual Brandt Intact
Cranial Nerves III, IV, : Extraocular Movement: Extraocular Movement Full in all Directions
Cranial Nerve VII: Facial Symmetry: Normal Facial Symmetry
Muscle Strength, Overall: Full Throughout
Muscle Bulk & Tone: Bulk Unremarkable and Tone Unremarkable
Pronator Drift: No Drift in Upper Extremities
Deep Tendon Reflexes: Trace Throughout
Touch Sensation: Unremarkable
Coordination: Oniccl-dtor-tjnhzp Testing Unremarkable
Data Reviewed
-
EEG: Report Reviewed
Labs: Report Reviewed
[2023-10-28 07:26] LABS: % Basophils 0.6 % (0-2); % Eosinophils 1.3 % (0-6); % Immature Granulocytes 0.3 % (0-0.5); % Lymphocytes 17.6 % (20.5-51.1); % Monocytes 10.5 % (1.7-9.3); % Neutrophils 69.7 % (42.2-75.2); Absolute Eosinophils 0.1 10^3/uL (0-0.7); Absolute Lymphocytes 1.1 10^3/uL (1.2-3.4); Absolute Monocytes 0.7 10^3/uL (0.1-0.6); Absolute Neutrophils 4.3 10^3/uL (1.4-6.5); Hemoglobin 10.7 g/dL (13.0-18.0); Mean Corp Hgb Conc. 35.7 g/dL (33.0-37.0); Mean Corpuscular Hgb 33.6 pg (27.0-31.0); Mean Corpuscular Volume 94.3 fL (80.0-94.0); Mean Platelet Volume 9.7 fL (7.4-10.4); Nucleated Red Blood Cells % 0 % (-); Platelet Count 277 10^3/uL (130-400); Red Blood Cell Count 3.18 10^6/uL (4.70-6.10); Red Cell Dist. Width 11.7 % (11.5-14.5); White Blood Cell Count 6.2 10^3/uL (4.8-10.8)
[2023-10-28 07:30] VITALS: BP 132/61
[2023-10-28 08:04] LABS: APTT 99.7 Sec (23.4-35.0)
[2023-10-28] MEDS: PROTONIX 40 MG PO (08:27)
[2023-10-28] MEDS: LASIX 40 MG PO (08:27)
[2023-10-28] MEDS: LONITEN 10 MG PO ×2 (08:29→20:42)
[2023-10-28] MEDS: VITAMIN B-12 1000 MCG PO (08:29)
[2023-10-28] MEDS: TEGRETOL 400 MG PO ×2 (08:29→20:42)
[2023-10-28 08:31] LABS: ALT (SGPT) 33 U/L (0-50); AST (SGOT) 34 U/L (17-59); Albumin 4.2 g/dl (3.5-5.0); Alkaline Phosphatase 112 U/L (38-126); Blood Urea Nitrogen 39 mg/dl (9-20); Calcium 9.6 mg/dl (8.4-10.2); Carbon Dioxide 31 mmol/L (22-30); Chloride 99 mmol/L (98-107); Estimated Creatinine Clearance 49 ml/min; Glucose 107 mg/dl (70-99); Potassium 4.5 mmol/L (3.5-5.1); Sodium 135 mmol/L (135-145); Total Bilirubin 0.5 mg/dl (0.2-1.3); Total Protein 7.3 g/dl (6.3-8.2); eGFR > 60.00
[2023-10-28] MEDS: KEPPRA 1000 MG IV ×2 (09:11→20:40)
[2023-10-28] MEDS: VIMPAT 100 MG IV ×2 (09:16→20:39)
[2023-10-28 11:45] VITALS: BP 139/65
--- NOTE | 2023-10-28 11:47 | W.PN.HOSP.TC ---
Addendum entered and electronically signed by Reid Almaguer MD 10/28/23 12:19:
Discussed with Dr. Correia via [place] [facility] about Carbamazepine dosing and he recommended continuing patient's home dose of 400 mg BID, not 400 mg TID.
Original Note:
Today's Communication/Plan
-
Continue EEG
Continue antiepileptic medications
Neurology appreciated
Assessment / Plan
Assessment / Plan
Physical Exam
General: Well Developed, Well Nourished and No Apparent Distress
HEENT: Normocephalic, Moist mucous membranes and Atraumatic
Respiratory: Clear to Auscultation Bilaterally
Cardiac: S1/S2 and Regular Rhythm
GI: Soft, Non Tender, Non Distended and Normal Bowel Sounds
Musculoskeletal: No Cyanosis and No Edema
Skin: Warm. Dry.
Neuro: Nonfocal/grossly intact

Assessment/Plan
# Recurrent episodes of altered mental status secondary to nonconvulsive status epilepticus
# History of grand mal/petit mall seizures
# Known Chronic Epilepsy - on 3 anti seizure medications at home
# Presentation with several-day history of mild behavioral change and decline in mental status
-Neurology following
-IV Ativan was given
-Patient on continuous EEG monitoring which showed epileptiform activity which improved with Ativan
-Neurology increased carbamazepine to 400 3 times daily
-Lacosamide was increased to 300 twice daily now decreased back to 100 mg IV Q12H
-Keppra maintained at 1500 twice daily initially, but then decreased back to 1000 mg IV Q12H
-Keppra level pending
-Neuro checks per protocol
-Speech screening, allow diet and PO medications as patient able, although at this time may not be able to due to mental status
-Hold Coumadin in case LP is necessary at some point
Paroxysmal atrial fibrillation
-Hold Coumadin as above
-Heparin drip instead as above
Chronic HFrEF
-Continue Lasix
Mild to moderate aortic stenosis
Multidrug-resistant hypertension
-Continue clonidine, minoxidil
Obstructive sleep apnea
Full code
DVT prophylaxis�heparin
regular
Anticipated Discharge: > 48 hours
Subjective/Interval History
-
Date of Service: October 28, 2023
Patient was seen and examined. Patient had vomiting and lethargy overnight but this morning feels better, no new complaints.
Objective Data
-
Labs:
Laboratory Results
10/28/23 10/28/23 10/28/23
05:00 07:08 14:35
WBC 6.2
Hgb 10.7 L
Hct 30.0 L
Plt Count 277
APTT Cancelled 99.7 H Pending
Sodium 135
Potassium 4.5
Chloride 99
Carbon Dioxide 31 H
BUN 39 H
Creatinine 1.2
Glucose 107 H
Calcium 9.6
Total Bilirubin 0.5
AST 34
ALT 33
Alkaline Phosphatase 112
Vital Signs:
Vital Signs
Temp Pulse Resp BP Pulse Ox
98.1 F 77 16 132/61 97
10/28/23 07:30 10/28/23 07:30 10/28/23 07:30 10/28/23 07:30 10/28/23 07:30
I&O
10/27/23 10/28/23 10/29/23
06:59 06:59 06:59
Intake Total 720 / 720
Balance 720 / 720
[2023-10-28 14:45] LABS: APTT 136.3 Sec (23.4-35.0)
[2023-10-28 15:30] VITALS: BP 133/60
--- NOTE | 2023-10-28 15:40 | CM ---
Spoke with pt and at bedside
Pt lives with his in a 2 story home with ramp access and FF set-up
Forgetful, needs assist with adl's, ambulates with walker
Pt has been in hospice in past with [facility] - currently not hospice
DME includes - hospital bed, walker, tray table, wheel chair, commode
Past SNF - [facility]
HH - Current with [facility]
PCP - Dr Parker Garcia
Pharm - [facility]
will transport home at d/c
CM will follow for d/c needs - would like pt to return home
Plan - Anticipate home with [facility]
[2023-10-28 17:46] LABS: Keppra (Levetiracetam) 79 ug/mL (10-40)
[2023-10-28 19:21] VITALS: BP 135/65
[2023-10-28] MEDS: HEPARIN 25000 UNITS/250 ML IV (20:37)
[2023-10-28 23:45] VITALS: BP 132/71
[2023-10-29 00:49] LABS: APTT 58.6 Sec (23.4-35.0)
[2023-10-29 03:22] VITALS: BP 128/72
[2023-10-29 06:00] VITALS: BMI 22.0
[2023-10-29 07:27] LABS: Hematocrit 27.7 % (39.0-52.0); Hemoglobin 9.9 g/dL (13.0-18.0); Mean Corp Hgb Conc. 35.7 g/dL (33.0-37.0); Mean Corpuscular Hgb 33.8 pg (27.0-31.0); Mean Corpuscular Volume 94.5 fL (80.0-94.0); Mean Platelet Volume 9.9 fL (7.4-10.4); Platelet Count 268 10^3/uL (130-400); Red Blood Cell Count 2.93 10^6/uL (4.70-6.10); Red Cell Dist. Width 11.8 % (11.5-14.5); White Blood Cell Count 6.6 10^3/uL (4.8-10.8)
[2023-10-29 07:30] VITALS: BP 152/68
[2023-10-29 07:46] LABS: APTT 98.4 Sec (23.4-35.0)
--- NOTE | 2023-10-29 07:55 | W.PN.NEURO.1 ---
Today's Communication / Plan
-
-Keep Carbamazepine 400 mg BID
-Keep Keppra 1500 mg BID move to PO
-Wean Lacosamide, 50 mg BID starting tonight, does not seem this medication has produced any better control of seizures since starting
-Tentatively would plan on pursuing Cenobamate/Xcopri in the outpatient setting
-Okay to come off continuous EEG
Will follow
Neuro Assessment/Plan
Assessment
Impressions
1. 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 Has had mild behavioral change and decline in mental status over the past several days. Interestingly was awake and conversant with mild cognitive impairments but with
extremely abnormal EEG.
2. Likely cognitive impairment if not dementia at baseline
3. Chronic epilepsy on 3 anti seizure medications, epilepsy appears to be focal, not controlled, with status epilepticus. Has not had generalized tonic clonic seizures in years.
Carbamazepine level of 10, in the therapeutic range
No sign that infection triggered the status epilepticus
Status epilepticus appears most likely due to chronic epilepsy no clear trigger, has been compliant with medications, no severe sleep deprivation recently or new medications
Vomiting overnight could be due to higher doses of anti seizure medications on top of CKD
Subjective/Objective
Subjective Data
Date of Service: October 29, 2023
No acute events overnight, no seizures on EEG, no complaints this morning
Objective Data
Vital Signs
Temp Pulse Resp BP Pulse Ox
97.9 F 65 16 152/68 97
10/29/23 07:30 10/29/23 07:30 10/29/23 07:30 10/29/23 07:30 10/29/23 07:30
APTT 98.4 Sec (23.4-35.0) H 10/29/23 07:02
Sodium 135 mmol/L (135-145) 10/28/23 07:08
Potassium 4.5 mmol/L (3.5-5.1) 10/28/23 07:08
BUN 39 mg/dl (9-20) H 10/28/23 07:08
Glucose 107 mg/dl (70-99) H 10/28/23 07:08
Calcium 9.6 mg/dl (8.4-10.2) 10/28/23 07:08
Patient Allergies
hydralazine Allergy (Verified 10/09/23 01:59)
Unknown
pollen extracts Allergy (Verified 10/09/23 01:59)
nasal symptoms
Review of Systems
-
History Source: Patient
All other systems: Reviewed and negative
Constitutional: No Symptoms
EENT: No Symptoms Reported
Respiratory: No Symptoms
Cardiac: No Symptoms
Abdomen/GI: No Symptoms
Genitourinary: No Symptoms
Musculoskeletal: No Symptoms
Skin: No Symptoms
Neuro: See existing Neuro Note
Endocrine: No Symptoms
Hematologic / Lymphatic: No Symptoms
Allergy / Immunology: No Symptoms
Physical Exam
-
General: Comfortable
Eyes: No Ptosis
HEENT: Normocephalic
Neck: No Bruits Bilaterally
Respiratory: Clear to Auscultation
Cardiac: Regular Rhythm
GI: Normal Bowel Sounds
Skin: Unremarkable
Extremities: No Clubbing
Psych: Unremarkable
Extended Neurological Exam
Mood & Affect: Mood Unremarkable and Affect Unremarkable
Attention Span & Concentration: Awake, Alert and Interactive
Memory: Reduced
Tremor: Hand Tremor Absent
Involuntary Movement: None
Speech: Quality Unremarkable; Negative Expressive Aphasia, Receptive Aphasia or Dysarthric
Cranial Nerve II: Left Eye: Pupillary Reactivity Unremarkable and Pupillary Size Unremarkable
Cranial Nerve II: Right Eye: Pupillary Reactivity Unremarkable and Pupillary Size Unremarkable
Cranial Nerves III, IV, : Extraocular Movement: Extraocular Movement Full in all Directions
Cranial Nerve VII: Facial Symmetry: Normal Facial Symmetry
Cranial Nerve VIII: Hearing: Unremarkable Hearing to Normal Conversational Volume
Muscle Strength, Overall: Full Throughout
Muscle Bulk & Tone: Bulk Unremarkable
Pronator Drift: No Drift in Upper Extremities
Touch Sensation: Unremarkable
Babinski Sign: Absent Bilaterally
Data Reviewed
-
EEG: Report Reviewed
--- NOTE | 2023-10-29 07:55 | EEGC.RPT ---
Continuous EEG Report
Recording
Start Date of Data Reviewed: 10/28/23
Start Time of Data Reviewed: 07:00
End Date of Data Reviewed: 10/29/23
End Time of Data Reviewed: 07:00
Type of EEG: Continuous
Done with Video Recording: Yes
Study Sequence: Continuation of ongoing Study
Electrocardiogram: Unremarkable
Report
CONTINUOUS EEG REPORT
EEG INTERPRETATION:
Mildly abnormal study for age based on generalized slowing demonstrated bihemispherically equally
CLINICAL CORRELATION:
This study was suggestive of mild bihemispheric cortical dysfunction. No epileptiform features were demonstrated.
Clinical correlation is advised.
METHODS:
A 21-channel digital electroencephalogram (EEG) was performed at the bedside. The 10/20 international system of electrode placement was used with ECG and lateral/vertical eye movements recorded. Video was recorded. Duration of this recording 24
hours.
IMPRESSION(S):
Quality of study
Good
Background
Medium amplitude alpha and theta during the awake state
Posterior dominant rhythm 9-10 hz seen which attenuates with eye opening
No background asymmetry
Sleep
Drowsiness present
Stage 1 sleep seen
Hyperventilation
Not performed
Photic Stimulation
Not performed
ECG
Normal rhythm
Abnormal Activity
Moderate diffuse slowing, no epileptiform features or seizures seen
[2023-10-29 07:59] LABS: ALT (SGPT) 34 U/L (0-50); AST (SGOT) 32 U/L (17-59); Albumin 3.9 g/dl (3.5-5.0); Alkaline Phosphatase 106 U/L (38-126); Blood Urea Nitrogen 41 mg/dl (9-20); Calcium 9.5 mg/dl (8.4-10.2); Carbon Dioxide 31 mmol/L (22-30); Chloride 95 mmol/L (98-107); Estimated Creatinine Clearance 52 ml/min; Glucose 97 mg/dl (70-99); Potassium 4.3 mmol/L (3.5-5.1); Sodium 133 mmol/L (135-145); Total Bilirubin 0.4 mg/dl (0.2-1.3); eGFR > 60.00
[2023-10-29] MEDS: KEPPRA 1000 MG IV (08:41)
[2023-10-29] MEDS: VIMPAT 100 MG IV (08:42)
[2023-10-29] MEDS: VITAMIN B-12 1000 MCG PO (08:43)
[2023-10-29] MEDS: PROTONIX 40 MG PO (08:43)
[2023-10-29] MEDS: TEGRETOL 400 MG PO ×2 (08:43→19:58)
[2023-10-29] MEDS: LASIX 40 MG PO (08:43)
[2023-10-29] MEDS: LONITEN 10 MG PO ×2 (08:43→19:59)
[2023-10-29 11:55] VITALS: BP 158/69
[2023-10-29 13:00] LABS: INR 1.41; PT 17.1 Sec (11.4-14.6)
--- NOTE | 2023-10-29 14:59 | W.PN.HOSP.TC ---
Today's Communication/Plan
-
Antiepileptics as below
Switch back to Coumadin as patient will not need LP
Assessment / Plan
Assessment / Plan
Physical Exam
General: Well Developed, Well Nourished and No Apparent Distress
HEENT: Normocephalic, Moist mucous membranes and Atraumatic
Respiratory: Clear to Auscultation Bilaterally
Cardiac: S1/S2 and Regular Rhythm
GI: Soft, Non Tender, Non Distended and Normal Bowel Sounds
Musculoskeletal: No Cyanosis and No Edema
Skin: Warm. Dry.
Neuro: Nonfocal/grossly intact

Assessment/Plan
# Recurrent episodes of altered mental status secondary to nonconvulsive status epilepticus
# History of grand mal/petit mall seizures
# Known Chronic Epilepsy - on 3 anti seizure medications at home
# Presentation with several-day history of mild behavioral change and decline in mental status
-Neurology following
-IV Ativan was given
-Patient on continuous EEG monitoring which showed epileptiform activity which improved with Ativan
-Neurology recommended maintaining Carbamazepine at 400 mg BID
-Lacosamide was increased to 300 twice daily now decreased back to 100 mg IV Q12H --> goal is to wean off as per neurology --> starting with 50 mg BID tonight
-Keppra maintained at 1500 twice daily initially, but then decreased back to 1000 mg IV Q12H now being switched to 1500 mg PO BID
-Cenobamate/Xcopri in the outpatient setting per neuro recommendations
-Neuro checks per protocol
-Speech screening, allow diet and PO medications as patient able, although at this time may not be able to due to mental status
-LP will not be necessary
-Therefore, stopped Heparin Drip and resumed Coumadin
-Status post continuous EEG
Paroxysmal atrial fibrillation
-Resume Coumadin as above
Chronic HFrEF
-Continue Lasix
Mild to moderate aortic stenosis
Multidrug-resistant hypertension
-Continue clonidine, minoxidil
Obstructive sleep apnea
Full code
DVT prophylaxis�Coumadin
regular
Anticipated Discharge: 24 - 48 hours
Subjective/Interval History
-
Date of Service: October 29, 2023
Patient was seen and examined. He reported no new symptoms or complaints.
Objective Data
-
Labs:
Laboratory Results
10/29/23 10/29/23
07:02 12:41
WBC 6.6
Hgb 9.9 L
Hct 27.7 L
Plt Count 268
PT 17.1 H
INR 1.41
APTT 98.4 H
Sodium 133 L
Potassium 4.3
Chloride 95 L
Carbon Dioxide 31 H
BUN 41 H
Creatinine 1.1
Glucose 97
Calcium 9.5
Total Bilirubin 0.4
AST 32
ALT 34
Alkaline Phosphatase 106
Vital Signs:
Vital Signs
Temp Pulse Resp BP Pulse Ox
97.1 F 64 16 158/69 100
10/29/23 11:55 10/29/23 11:55 10/29/23 11:55 10/29/23 11:55 10/29/23 11:55
I&O
10/28/23 10/29/23 10/30/23
06:59 06:59 06:59
Intake Total 720 / 720 1100 / 1100
Balance 720 / 720 1100 / 1100
[2023-10-29 15:45] VITALS: BP 157/75
[2023-10-29] MEDS: COUMADIN 7.5 MG PO (18:09)
[2023-10-29] MEDS: COUMADIN 1 MG PO (18:09)
[2023-10-29 19:37] VITALS: BP 148/77
[2023-10-29] MEDS: VIMPAT 50 MG PO (19:58)
[2023-10-29] MEDS: KEPPRA 1500 MG PO (19:59)
[2023-10-29 23:40] VITALS: BP 131/71
[2023-10-30] VITALS (8 sets, daily range): BP systolic 100–173; BP diastolic 65–89; PULSE 71; O2SAT 99; BMI 21.7
[2023-10-30] MEDS: TYLENOL 650 MG PO (01:13)
--- NOTE | 2023-10-30 08:01 | W.PN.NEURO.1 ---
Today's Communication / Plan
-
Mild adjustment to prior plan and that the patient should be maintained on lacosamide 50 mg twice daily until assessment as an outpatient to embrace Cenobamate with gradual titration of this medication
No clear indication that the patient would benefit from additional medications to treat cognitive dysfunction at this time
Neuro Assessment/Plan
Assessment
Impressions
1. 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 Has had mild behavioral change and decline in mental status over the past several days. Interestingly was awake and conversant with mild cognitive impairments but with
extremely abnormal EEG.
2. Likely cognitive impairment if not dementia at baseline
3. Chronic epilepsy on 3 anti seizure medications, epilepsy appears to be focal, not controlled, with status epilepticus. Has not had generalized tonic clonic seizures in years.
Carbamazepine level of 10, in the therapeutic range
No sign that infection triggered the status epilepticus
Status epilepticus appears most likely due to chronic epilepsy no clear trigger, has been compliant with medications, no severe sleep deprivation recently or new medications
Plan
Mild adjustment to prior plan and that the patient should be maintained on lacosamide 50 mg twice daily until assessment as an outpatient to embrace Cenobamate with gradual titration of this medication
No clear indication that the patient would benefit from additional medications to treat cognitive dysfunction at this time
Will follow as outpatient
Subjective/Objective
Subjective Data
Date of Service: October 30, 2023
Objective Data
Vital Signs
Temp Pulse Resp BP Pulse Ox
36.6 C 74 18 145/79 97
10/30/23 07:00 10/30/23 07:00 10/30/23 07:00 10/30/23 07:00 10/30/23 07:00
PT 17.1 Sec (11.4-14.6) H 10/29/23 12:41
INR 1.41 10/29/23 12:41
APTT 98.4 Sec (23.4-35.0) H 10/29/23 07:02
Sodium 133 mmol/L (135-145) L 10/29/23 07:02
Potassium 4.3 mmol/L (3.5-5.1) 10/29/23 07:02
BUN 41 mg/dl (9-20) H 10/29/23 07:02
Glucose 97 mg/dl (70-99) 10/29/23 07:02
Calcium 9.5 mg/dl (8.4-10.2) 10/29/23 07:02
Patient Allergies
hydralazine Allergy (Verified 10/09/23 01:59)
Unknown
pollen extracts Allergy (Verified 10/09/23 01:59)
nasal symptoms
Medications
-
Medications:
Generic Name Dose Route Start Last Admin
Trade Name Freq PRN Reason Stop Dose Admin
Acetaminophen 650 mg 10/30/23 01:08 10/30/23 01:13
Acetaminophen 325 Mg Tablet PO 11/27/23 01:07 650 mg
Q4HPRN PRN Administration
mild pain/GARZON/temp>100.5
Carbamazepine 400 mg 10/28/23 20:00 10/29/23 19:58
Carbamazepine 200 Mg Tablet PO 11/25/23 19:59 400 mg
BID VIRAJ Administration
Clonidine HCl 0.2 mg 11/01/23 08:00
Clonidine 0.2 Mg Patch TRANSDERM 11/29/23 07:59
WE VIRAJ
Cyanocobalamin 1,000 mcg 10/28/23 08:00 10/29/23 08:43
Cyanocobalamin 1,000 Mcg Tablet PO 11/25/23 07:59 1,000 mcg
DAILY VIRAJ Administration
Furosemide 40 mg 10/28/23 08:00 10/29/23 08:43
Furosemide 40 Mg Tablet PO 11/25/23 07:59 40 mg
DAILY VIRAJ Administration
Lacosamide 50 mg 10/29/23 20:00 10/29/23 19:58
Lacosamide (Vimpat) 100 Mg Tablet PO 10/30/23 20:01 50 mg
BID VIRAJ Administration
Levetiracetam 1,500 mg 10/29/23 20:00 10/29/23 19:59
Levetiracetam 500 Mg Regular Release Tablet PO 11/26/23 19:59 1,500 mg
BID VIRAJ Administration
Lorazepam 2 mg 10/28/23 11:46
Lorazepam 2 Mg/Ml Vial IV 11/25/23 11:45
Q8HPRN PRN
seizures
Minoxidil 10 mg 10/27/23 20:00 10/29/23 19:59
Minoxidil 10 Mg Tablet PO 11/24/23 19:59 10 mg
BID VIRAJ Administration
Pantoprazole Sodium 40 mg 10/28/23 08:00 10/29/23 08:43
Pantoprazole 40 Mg Delayed Release Tablet PO 11/25/23 07:59 40 mg
DAILY VIRAJ Administration
Polyethylene Glycol 17 grams 10/27/23 15:27
Polyethylene Glycol Powder 17 Grams Packet PO 11/24/23 15:26
DAILYPRN PRN
constipation
Sodium Chloride 0 flush 10/27/23 17:00
Sodium Chloride 0.9% (Flush) Syringe IV 11/24/23 16:59
PER PROTOCOL VIRAJ
Sodium Chloride 1 ml 10/28/23 12:42
Nss (Pf) 10 Ml Vial For Ativan 2 Mg Dose IV 11/25/23 12:41
Q8HPRN PRN
IV LORAZEPAM DILUTION
Warfarin Sodium 7.5 mg 10/29/23 18:00 10/29/23 18:09
Warfarin 7.5 Mg Tablet PO 11/03/23 17:59 7.5 mg
DAILY@1800 VIRAJ Administration
Warfarin Sodium 1 mg 10/29/23 18:00 10/29/23 18:09
Warfarin 1 Mg Tablet PO 11/03/23 17:59 1 mg
DAILY@1800 VIRAJ Administration
Past History
Past History
ED Past Medical History: Asthma, Cancer (Lung), CHF, CVA, HTN, Hypercholesterolemia, Seizures and Other (COREY, C-pap at night, Meningitis, )
ED Past Surgical History: Tonsilectomy and Other (right lobectomy, Uvulectomy)
Social History
Tobacco: Non-smoker
Alcohol: None
Drug: None
Personal:
Living: with family
Employment: Retired
Family History
Family History: Other (reviewed and Noncontributory)
[2023-10-30] MEDS: KEPPRA 1500 MG PO ×2 (08:04→20:25)
[2023-10-30] MEDS: LONITEN 10 MG PO ×2 (08:04→20:25)
[2023-10-30] MEDS: LASIX 40 MG PO (08:04)
[2023-10-30] MEDS: PROTONIX 40 MG PO (08:04)
[2023-10-30] MEDS: VITAMIN B-12 1000 MCG PO (08:05)
[2023-10-30] MEDS: TEGRETOL 400 MG PO ×2 (08:05→20:25)
[2023-10-30] MEDS: VIMPAT 50 MG PO ×2 (08:08→20:25)
[2023-10-30 08:19] LABS: Hematocrit 31.9 % (39.0-52.0); Hemoglobin 11.3 g/dL (13.0-18.0); Mean Corp Hgb Conc. 35.4 g/dL (33.0-37.0); Mean Corpuscular Volume 96.1 fL (80.0-94.0); Platelet Count 270 10^3/uL (130-400); Red Blood Cell Count 3.32 10^6/uL (4.70-6.10); Red Cell Dist. Width 11.8 % (11.5-14.5); White Blood Cell Count 5.8 10^3/uL (4.8-10.8)
[2023-10-30 08:23] LABS: INR 1.23; PT 15.4 Sec (11.4-14.6)
[2023-10-30 08:48] LABS: ALT (SGPT) 34 U/L (0-50); AST (SGOT) 31 U/L (17-59); Albumin 4.6 g/dl (3.5-5.0); Alkaline Phosphatase 115 U/L (38-126); Blood Urea Nitrogen 43 mg/dl (9-20); Calcium 10.2 mg/dl (8.4-10.2); Carbon Dioxide 31 mmol/L (22-30); Chloride 94 mmol/L (98-107); Estimated Creatinine Clearance 51 ml/min; Glucose 112 mg/dl (70-99); Potassium 4.5 mmol/L (3.5-5.1); Sodium 136 mmol/L (135-145); Total Bilirubin 0.5 mg/dl (0.2-1.3); Total Protein 7.9 g/dl (6.3-8.2); eGFR > 60.00
--- NOTE | 2023-10-30 09:38 | CM ---
Reviewed chart, patient needs still yet to be determined. Will follow along with medical notes and make recommendations for post acute care based on medical advisement.
Plan: Case management will continue to follow and assist with discharge planning. Home vrs. SNF.
--- NOTE | 2023-10-30 10:05 | W.PN.HOSP.TC ---
Today's Communication/Plan
-
Need to check with neurology as to the weaning schedule for lacosamide
Continue PT INR until therapeutic range
Maintain on 1500 mg twice a day and carbamazepine 400 twice daily
Should be stable for discharge once taper schedule lacosamide in place
Assessment / Plan
Assessment / Plan
Physical Exam
General: Well Developed, Well Nourished and No Apparent Distress
HEENT: Normocephalic, Moist mucous membranes and Atraumatic
Respiratory: Clear to Auscultation Bilaterally
Cardiac: S1/S2 and Regular Rhythm
GI: Soft, Non Tender, Non Distended and Normal Bowel Sounds
Musculoskeletal: No Cyanosis and No Edema
Skin: Warm. Dry.
Neuro: Nonfocal/grossly intact

Assessment/Plan
# Recurrent episodes of altered mental status secondary to nonconvulsive status epilepticus
# History of grand mal/petit mall seizures
# Known Chronic Epilepsy - on 3 anti seizure medications at home
# Presentation with several-day history of mild behavioral change and decline in mental status
-Neurology following
-IV Ativan was given
-Patient on continuous EEG monitoring which showed epileptiform activity which improved with Ativan
-Neurology recommended maintaining Carbamazepine at 400 mg BID
-Lacosamide was increased to 300 twice daily now decreased back to 100 mg IV Q12H --> goal is to wean off as per neurology --> starting with 50 mg BID tonight
-Keppra maintained at 1500 twice daily initially, but then decreased back to 1000 mg IV Q12H now being switched to 1500 mg PO BID
-Cenobamate/Xcopri in the outpatient setting per neuro recommendations
-Neuro checks per protocol
-Speech screening, allow diet and PO medications as patient able, although at this time may not be able to due to mental status
-LP will not be necessary
-Therefore, stopped Heparin Drip and resumed Coumadin
-Status post continuous EEG
Paroxysmal atrial fibrillation
-Resume Coumadin as above
Chronic HFrEF
-Continue Lasix
Mild to moderate aortic stenosis
Multidrug-resistant hypertension
-Continue clonidine, minoxidil
Obstructive sleep apnea
Full code
DVT prophylaxis�Coumadin
regular
Anticipated Discharge: Within 24 hours
Subjective/Interval History
-
Date of Service: October 30, 2023
No symptoms doing well spoke to his at bedside anxious over the fact that he weaning off lacosamide
Objective Data
-
Labs:
Laboratory Results
10/30/23
07:40
WBC 5.8
Hgb 11.3 L
Hct 31.9 L
Plt Count 270
PT 15.4 H
INR 1.23
Sodium 136
Potassium 4.5
Chloride 94 L
Carbon Dioxide 31 H
BUN 43 H
Creatinine 1.1
Glucose 112 H
Calcium 10.2
Total Bilirubin 0.5
AST 31
ALT 34
Alkaline Phosphatase 115
Vital Signs:
Vital Signs
Temp Pulse Resp BP Pulse Ox
97.8 F 74 18 145/79 97
10/30/23 07:00 10/30/23 07:00 10/30/23 07:00 10/30/23 07:00 10/30/23 07:00
I&O
10/29/23 10/30/23 10/31/23
06:59 06:59 06:59
Intake Total 1100 / 1100 640 / 640
Balance 1100 / 1100 640 / 640
Review of Systems
-
History Source: Patient
All other systems: Reviewed and negative
Cardiac: Reports No Symptoms
Abdomen/GI: Reports No Symptoms
Physical Exam
-
General: No Apparent Distress
HEENT: Normocephalic
Respiratory: Clear to Auscultation
Cardiac: Irregular Rhythm
Genito-urinary: Costovertebral Angle Tend
Musculoskeletal: No Clubbing
Skin: Warm
Neuro: Awake
Data Reviewed
-
Total Time Spent with Patient (in minutes): 56
Labs: Labs Reviewed by me (PT/INR 1.54 today)
--- NOTE | 2023-10-30 10:21 | VNURNOTE ---
Edmond is current with [facility] since 08/29 w/SN/PT, will monitor progress and plan at discharge.
[2023-10-30] MEDS: COUMADIN 1 MG PO (18:37)
[2023-10-30] MEDS: COUMADIN 7.5 MG PO (18:38)
[2023-10-31 03:38] VITALS: BP 129/61
[2023-10-31 06:00] VITALS: BMI 21.6
[2023-10-31 07:07] LABS: Hematocrit 30.6 % (39.0-52.0); Mean Corp Hgb Conc. 35.9 g/dL (33.0-37.0); Mean Corpuscular Hgb 33.6 pg (27.0-31.0); Mean Corpuscular Volume 93.6 fL (80.0-94.0); Platelet Count 275 10^3/uL (130-400); Red Blood Cell Count 3.27 10^6/uL (4.70-6.10); Red Cell Dist. Width 11.9 % (11.5-14.5); White Blood Cell Count 6.4 10^3/uL (4.8-10.8)
[2023-10-31 07:09] LABS: INR 1.31; PT 16.1 Sec (11.4-14.6)
[2023-10-31 07:10] VITALS: BP 133/76
[2023-10-31 08:06] LABS: ALT (SGPT) 33 U/L (0-50); AST (SGOT) 33 U/L (17-59); Albumin 4.3 g/dl (3.5-5.0); Alkaline Phosphatase 110 U/L (38-126); Blood Urea Nitrogen 42 mg/dl (9-20); Calcium 9.7 mg/dl (8.4-10.2); Carbon Dioxide 30 mmol/L (22-30); Chloride 98 mmol/L (98-107); Estimated Creatinine Clearance 51 ml/min; Glucose 99 mg/dl (70-99); Potassium 4.5 mmol/L (3.5-5.1); Sodium 136 mmol/L (135-145); Total Bilirubin 0.5 mg/dl (0.2-1.3); Total Protein 7.5 g/dl (6.3-8.2); eGFR > 60.00
[2023-10-31] MEDS: VITAMIN B-12 1000 MCG PO (08:10)
[2023-10-31] MEDS: PROTONIX 40 MG PO (08:10)
[2023-10-31] MEDS: KEPPRA 1500 MG PO (08:10)
[2023-10-31] MEDS: LONITEN 10 MG PO (08:11)
[2023-10-31] MEDS: LASIX 40 MG PO (08:11)
[2023-10-31] MEDS: TEGRETOL 400 MG PO (08:11)
[2023-10-31] MEDS: MIRALAX 17 GRAMS PO (08:15)
--- NOTE | 2023-10-31 09:20 | W.DS.TRANS ---
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
-
Discharge Instructions:
Discharge Diagnosis/Procedures Status epilepticus
Petit mal seizures
Underlying dementia
Paroxysmal atrial fibrillation
Diet Regular
Activity As tolerated
Driving Restrictions No driving
Other Services PT,OT,VN
Instructions:
Stand-Alone Forms:
Changes to Home Medications: Yes
Discharge Medications:
DC Medications w/original date entered in [employer]
minoxidil 10 mg tablet 10 mg PO BID Blood Pressure 01/22/23
carbamazepine 200 mg tablet,extended release,12 hr 400 mg (2 x 200 mg) PO BID Seizures #0 tabs 10/15/23
clonidine 0.2 mg/24 hr weekly transdermal patch 0.2 mg transdermal WE Blood Pressure 10/17/23
cyanocobalamin (vitamin B-12) 1,000 mcg tablet 1,000 mcg PO DAILY Supplement 10/17/23
furosemide 40 mg tablet 40 mg PO DAILY Fluid Retention/Swelling 10/17/23
levetiracetam 500 mg tablet 1,500 mg PO BID seizures 10/17/23
pantoprazole 40 mg tablet,delayed release 40 mg PO DAILY Gastrointestinal Issue 10/17/23
polyethylene glycol 3350 17 gram oral powder packet (HealthyLax) 17 g PO DAILYPRN PRN constipation 10/17/23
warfarin 1 mg tablet 1 mg PO DAILY@1800 Blood Clot Prevention/Tx 10/17/23
warfarin 7.5 mg tablet 7.5 mg PO DAILY@1800 Blood Clot Prevention/Tx 10/17/23
lacosamide 50 mg tablet 50 mg PO BID #60 tabs 10/31/23
Home Medication Changes
lacosamide 50 mg tablet 50 mg PO BID #60 tabs 10/31/23
Pending Results: No
--- NOTE | 2023-10-31 09:57 | CM ---
CM reviewed chart and noted dc order
Bedside meeting with pt
VN recommended by PT- pt in agreement with [facility]
IMM verbally reviewed and copy provided
VM left for spouse with update
VN requested TT/Dr Hill
Update to Melody/VN and nursing
Discharge Disposition- home with [facility]N [facility]- family transport
[2023-10-31] MEDS: VIMPAT 50 MG PO (10:02)
--- NOTE | 2023-10-31 14:13 | W.DCSUMMARY ---
Discharge Summary
Discharge Data
Date of Admission: 10/27/23
Date of Discharge: 10/31/23
Total time spent discharging patient (in min): 45
-
Pending Results: No
Hospital Course
83-year-old male past medical history of seizure disorder, paroxysmal atrial fibrillation, chronic HFrEF, mild to moderate aortic stenosis, multidrug-resistant hypertension, obstructive sleep apnea, hyponatremia presenting with change in mental
status today. He was disoriented and not recognizing where he was this morning. He had the water running and was supposed to brush his teeth placed on the toothbrush he did not know what to do. He was in his normal state of health yesterday.
Patient did not have any fevers or chills. No headache or chest pain. No shortness of breath. No GI symptoms. No neck or back pain. No seizure activity. No upper respiratory symptoms.
Patient was previously on hospice after multiple falls however was taken off hospice 6 months ago.
Patient was recently admitted on 10/19 for altered mental status secondary to metabolic encephalopathy. He had blood cultures which showed Staphylococcus epidermidis 2/2 and he was treated with vancomycin. ID thought this was due to contaminant and
antibiotic was stopped. Patient was also thought to have breakthrough seizures but patient's mental status went back to baseline and patient and decided to take patient home. He also has a history of multidrug-resistant hypertension and blood
pressure medications were decreased.
Pursuant to his known history of petit mall seizures/possible grand mal seizures the patient was evaluated and admitted to the medical service with consultation placed to the neurology service who ordered a continuous EEG Tegretol levels on
presentation were in therapeutic range at 10
Initial presentation we held his warfarin in relation to resolved longstanding history of paroxysmal atrial fibrillation and the thought that the patient may require an LP which eventually was not the case and with the EEG suggestive of mild
bihemispheric cortical dysfunction it was neurology opinion that presumptively the patient may have been having recurrent petit mall seizures as cause of his mental status changes but also mixed in with underlying mild to moderate dementia. If
present anticonvulsant medications were kept at carbamazepine 400 mg twice a day Keppra 1500 mg p.o. twice daily which was initially started on IV basis and switch to p.o. prior to discharge he was agreed by neurology after further consideration
that glucosamine with not contributing significantly to his anticonvulsant therapy and tentative plan would be to pursue Cenobamate /Xcopri and to taper his glucosamine down to 50 mg twice a day at discharge
Their impression was nonconvulsive status epilepticus in a patient with known epilepsy. Mild behavioral changes and decline in mental status over the past several days with mild cognitive impairments already documented but with a extremely abnormal
EEG and impression epilepsy seem to be focal but not generating generalized tonic-clonic seizure in years. No signs of infection triggering the status epilepticus and no signs of severe sleep deprivation possibly instigating.
Patient's warfarin was reinstituted in the absence of need of any interventions such as LP
Neurology agreed to see the patient in further follow-up with continuation of lacosamide at 50 mg twice a day until which time decision process will be made as outpatient forCenobamate/discharge plans discussed with patient's spouse at bedside on
October rates were made continue follow-up with [facility]
Discharge Plan
-
Patient Disposition: Home with Home Care
Discharge Diagnosis/Procedures: Status epilepticus
Petit mal seizures
Underlying dementia
Paroxysmal atrial fibrillation
Diet: Regular
Activity: As tolerated
Driving Restrictions: No driving
Other Services: VN, PT and OT
Referrals:
Vladislav Correia MD [Active] - (Call for appointment)
Adriel Hill MD [Active] -
Robin Garcia MD [Family Provider] - in less than 1 week
Prescriptions:
New
lacosamide 50 mg tablet
50 mg PO BID Qty: 60 0RF
Continued
minoxidil 10 mg Tablet
10 mg PO BID
carbamazepine 200 mg Tablet Extended Release 12 Hr
400 mg PO BID Qty: 0 0RF
furosemide 40 mg Tablet
40 mg PO DAILY
warfarin 7.5 mg Tablet
7.5 mg PO DAILY@1800
Rx Instructions:
10/27/2023, take with 1 mg for a total of 8.5 mg.
warfarin 1 mg Tablet
1 mg PO DAILY@1800
Rx Instructions:
10/27/2023, take with 7.5 mg for a total of 8.5 mg.
polyethylene glycol 3350 [HealthyLax] 17 gram powder in packet
17 g PO DAILYPRN PRN (Reason: constipation)
clonidine 0.2 mg/24 hr patch weekly
0.2 mg transdermal WE
Patient Comments:
10/27/2023, pt. currently wearing a patch on his left arm.
levetiracetam 500 mg tablet
1,500 mg PO BID
cyanocobalamin (vitamin B-12) 1,000 mcg tablet
1,000 mcg PO DAILY
pantoprazole 40 mg tablet,delayed release (DR/EC)
40 mg PO DAILY
Discontinued
lacosamide [Vimpat] 100 mg tablet
150 mg PO BID Qty: 0 0RF
Discharge Orders:
Discharge Patient (As Directed); Ordered 10/31/23
Ordered By: Adriel Hill
Discharge Date and Time
Discharge Date/Time: 10/31/23 12:19
Print Language: [place]
--- NOTE | 2023-10-31 15:31 | VNURNOTE ---
[facility]N referral completed in [facility] after review of chart. Message left with patient's , no return call received.
== END 2023-10-31 12:19 | disposition home health service (06) | DRG 101 ==
LOC: 3 WEST ACU 13:37
PROVIDERS: Emergency Medicine; Hospitalist; Nurse Practitioner Gerontology; ADMITTING PHYSICIAN Hospitalist; ATTENDING PHYSICIAN Internal Medicine; CONSULT PHYSICIAN Student in an Organized Health Care Education/Training Program; EMERGENCY PHYSICIAN Emergency Medicine; FAMILY PHYSICIAN Internal Medicine
DX: G40.901 Epilepsy, unspecified, not intractable, with status epilepticus (principal); I13.0 Hypertensive heart and chronic kidney disease with heart failure and stage 1 through stage 4 chronic kidney disease, or unspecified chronic kidney disease; I50.22 Chronic systolic (congestive) heart failure; Z16.24 Resistance to multiple antibiotics; I48.0 Paroxysmal atrial fibrillation; G40.A01 Absence epileptic syndrome, not intractable, with status epilepticus; I35.0 Nonrheumatic aortic (valve) stenosis; N18.9 Chronic kidney disease, unspecified; I1A.0 Resistant hypertension; G47.33 Obstructive sleep apnea (adult) (pediatric)
CPT/HCPCS: 36600; 80053; 80156; 80177; 82805; 82962; 85025; 85027; 85610; 85730; 93005; 95714; 95812; 96374; 96375; 97162; 99285; C9254

== ENCOUNTER 2023-11-02 08:25 | Emergency (ER) | payer MEDICARE, OTHER, SELFPAY ==
[2023-11-02 08:37] VITALS: BP 146/73
[2023-11-02 11:42] VITALS: BP 133/74; BMI 22.8
[2023-11-02 12:31] LABS: % Immature Granulocytes 0.5 % (0-0.5); % Neutrophils 63.5 % (42.2-75.2); Absolute Basophils 0.1 10^3/uL (0-0.2); Absolute Eosinophils 0.4 10^3/uL (0-0.7); Absolute Lymphocytes 0.9 10^3/uL (1.2-3.4); Absolute Monocytes 0.9 10^3/uL (0.1-0.6); Absolute Neutrophils 3.8 10^3/uL (1.4-6.5); Hematocrit 32.4 % (39.0-52.0); Hemoglobin 11.2 g/dL (13.0-18.0); Mean Corp Hgb Conc. 34.6 g/dL (33.0-37.0); Mean Corpuscular Hgb 33.5 pg (27.0-31.0); Mean Platelet Volume 9.9 fL (7.4-10.4); Nucleated Red Blood Cells % 0 % (-); Platelet Count 263 10^3/uL (130-400); Red Blood Cell Count 3.34 10^6/uL (4.70-6.10); Red Cell Dist. Width 11.9 % (11.5-14.5); White Blood Cell Count 6.1 10^3/uL (4.8-10.8)
[2023-11-02 12:40] LABS: ALT (SGPT) 60 U/L (0-50); AST (SGOT) 53 U/L (17-59); Albumin 4.4 g/dl (3.5-5.0); Alkaline Phosphatase 103 U/L (38-126); Blood Urea Nitrogen 40 mg/dl (9-20); Calcium 9.8 mg/dl (8.4-10.2); Carbon Dioxide 33 mmol/L (22-30); Chloride 96 mmol/L (98-107); Estimated Creatinine Clearance 49 ml/min; Glucose 113 mg/dl (70-99); Potassium 4.4 mmol/L (3.5-5.1); Sodium 136 mmol/L (135-145); Total Bilirubin 0.4 mg/dl (0.2-1.3); Total Protein 7.7 g/dl (6.3-8.2); eGFR > 60.00
--- NOTE | 2023-11-02 12:46 | ED.GENMED ---
History of Present Illness
General
Chief Complaint: Change in Mental Status
Source: patient and spouse
Time Seen by Provider: 11/02/23 12:23
Travel History
Have you had any contact with someone who has COVID-19?: No
Do you have any symptoms of coronavirus? Fever > 100 degrees, chills, cough, shortness of breath, sore throat, loss of taste or smell, muscle aches, or headache?: No
History of Present Illness
History of Present Illness:
83-year-old gentleman presents emergency room after having a period of confusion this morning. notes the patient was wiping his nose with his depends rather than the tissue. She had to help him get dressed and help him get into his stair
chair which are tasks he can normally perform independently. Patient seems more aware now but still not at baseline. states he just does not seem as engaged as normal and is smiling a lot. No focal weakness numbness or tingling. No fever.
Past History
Past History
ED Past Medical History: Asthma, Cancer (Lung), CHF, CVA, HTN, Hypercholesterolemia, Seizures and Other (COREY, C-pap at night, Meningitis, )
ED Past Surgical History: Tonsilectomy and Other (right lobectomy, Uvulectomy)
Social History
Tobacco: Non-smoker
Alcohol: None
Drug: None
Personal:
Living: with family
Employment: Retired
Family History
Family History: Other (reviewed and Noncontributory)
Phy Exam
Physical Exam
Physical Exam:
General: Awake, Alert, Oriented X3. No acute distress.
Vitals: unremarkable
Head: Atraumatic
Eyes: Pupils equal, EOMI
Throat: Airway intact, no exudates
Neck: Trachea midline
Lungs: Clear and equal b/l
Heart: Regular rate, no murmurs
Abd: Soft, Nontender, No pulsatile mass
Neuro: Cranial nerves intact, muscle strength equal bilaterally, cerebellar exam normal
Skin: Warm, dry, no rash
Extremities: pulses equal b/l, no edema
Course
Orders/Labs/Results
Orders:
Orders
11/02/23 12:14
CMP [Comprehensive Metabolic Panel] Urgent
Complete Blood Count/With Diff Urgent
11/02/23 13:00
0.9% Sodium Chloride 500 ml [Nss] 500 ml IV BOLUS
Abnormal Lab Results
11/02/23
12:14
RBC 3.34 L 10^6/uL
(4.70-6.10)
Hgb 11.2 L g/dL
(13.0-18.0)
Hct 32.4 L %
(39.0-52.0)
MCV 97.0 H fL
(80.0-94.0)
MCH 33.5 H pg
(27.0-31.0)
Absolute Lymphs (auto) 0.9 L 10^3/uL
(1.2-3.4)
Absolute Monos (auto) 0.9 H 10^3/uL
(0.1-0.6)
Lymphocytes % 15.0 L %
(20.5-51.1)
Monocytes % 14.0 H %
(1.7-9.3)
Chloride 96 L mmol/L
(98-107)
Carbon Dioxide 33 H mmol/L
(22-30)
BUN 40 H mg/dl
(9-20)
Glucose 113 H mg/dl
(70-99)
ALT 60 H U/L
(0-50)
11/02/23 12:14
11/02/23 12:14
Vital Signs
Initial and Last Documented VS:
Initial Vital Signs
Temp Pulse Resp BP Pulse Ox
98.2 F 70 18 146/73 98
11/02/23 08:37 11/02/23 08:37 11/02/23 08:37 11/02/23 08:37 11/02/23 08:37
Last Documented Vital Signs
Temp Pulse Resp BP Pulse Ox
98.2 F 72 20 140/66 97
11/02/23 08:37 11/02/23 15:18 11/02/23 15:18 11/02/23 15:18 11/02/23 15:18
MDM/Problems Addressed
Differential Diagnosis Includes:
Dehydration, partial seizure, electrolyte abnormality
MDM/Problems Addressed:
Patient has what sounds like another partial complex seizure. He seems to pretty conversant on my evaluation. Patient's feels he is not quite himself. Neurology consultation obtained. Dr. Smith will arrange for a new antiepileptic to be
started as an outpatient. This will require some preapproval's. In the meantime the patient will maintain his current medication regiment. Once he starts the new medicine he will discontinue Vimpat. Dr Correia will coordinate this.
*Pulse Oximetry
Patient hypoxic: no
*Critical Care Note
Total Time (30-74mins, 75-104mins- exclusive of procedures): Not Applicable
Data Reviewed
Further Testing Considered But Not Given:
Considered repeat imaging however the patient had just been hospitalized recently within the past 2 weeks and had an MRI and head CT at that time. I do not believe there is any benefit to further imaging given this information.
ED Attending Note
-
Portions of this chart may have been created with voice recognition software.� Occasional wrong word or��sound alike� substitutions may have occurred due to the inherent limitations of voice recognition software.
Discharge Plan
Departure
Patient Disposition: Home (Routine Discharge)
Date of Disposition: 11/02/23
Time of Disposition: 14:56
Patient with high blood pressure during this ER visit?: No
Condition: Good
Discharge Problem:
Partial seizure
Instructions: Seizures, Adult ED
Prescriptions:
No Action
minoxidil 10 mg Tablet
10 mg PO BID
carbamazepine 200 mg Tablet Extended Release 12 Hr
400 mg PO BID Qty: 0 0RF
furosemide 40 mg Tablet
40 mg PO DAILY
warfarin 7.5 mg Tablet
7.5 mg PO DAILY@1800
Rx Instructions:
11/02/2023, take with 1 mg for a total of 8.5 mg.
warfarin 1 mg Tablet
1 mg PO DAILY@1800
Rx Instructions:
11/02/2023, take with 7.5 mg for a total of 8.5 mg.
polyethylene glycol 3350 [HealthyLax] 17 gram powder in packet
17 g PO DAILYPRN PRN (Reason: constipation)
clonidine 0.2 mg/24 hr patch weekly
0.2 mg transdermal WE
Patient Comments:
11/02/2023, pt. currently wearing a patch on his right arm; per spouse, patch was changed yesterday (11/01/2023).
levetiracetam 500 mg tablet
1,500 mg PO BID
cyanocobalamin (vitamin B-12) 1,000 mcg tablet
1,000 mcg PO DAILY
pantoprazole 40 mg tablet,delayed release (DR/EC)
40 mg PO DAILY
lacosamide 50 mg tablet
50 mg PO BID Qty: 60 0RF
Referrals:
Vladislav Correia MD [Active] -
Robin Garcia MD [Family Provider] -
Interventions
Interventions:
*Risk Screen - Suicide Last Done: 11/02/23 11:43
*General Assessment Last Done: 11/02/23 15:18
*Neglect/Abuse Screening Last Done: 11/02/23 11:43
ED- Fall Risk Assessment Last Done: 11/02/23 11:44
*ED COVID-19 Vaccine History Last Done: 11/02/23 11:43
*Nursing Disposition Last Done: 11/02/23 15:18
ED- Pulmonary Assessment Last Done: 11/02/23 11:44
ED- Neurological Assessment Last Done: 11/02/23 11:44
ED- Cardiac Assessment Last Done: 11/02/23 11:44
Discharge Date and Time
Discharge Date/Time: 11/02/23 15:20
Print Language: TURKMEN
[2023-11-02 13:05] VITALS: BP 138/60
[2023-11-02] MEDS: NSS 500 IV (13:08)
[2023-11-02 14:00] VITALS: BP 131/61
--- NOTE | 2023-11-02 14:01 | CON.NEURO4 ---
Consultation - Neurology 4
-
CONSULTING PHYSICIAN: Adam Correia
REFERRING PHYSICIAN: ER
DICTATED BY: Adam Correia
DATE/TIME OF REQUEST: 11/02/23
DATE/TIME OF CONSULTATION: 11/02/23
Reason for Consultation: Mental status change, history of epilepsy
History of Present Illness:
Patient is an 83-year-old male with a past medical history of epilepsy, atrial fibrillation, cognitive impairment/dementia presented to hospital with behavior changes.
Patient had recent hospitalization due to change in mental status and was found of seizure here in the ER was discharged on Monday. He was doing reasonably well on Monday and Monday but today his noticed that he seemed to be having some
odd behaviors. He was discharged on a lower dose of lacosamide 50 mg twice daily with plans for eventual transition to cenobamate for new seizure medication. Patient's has not seen any overt seizure activity. Behavior changes were described
as some difficulty using the walker, memory difficulty, disoriented. Mental status seems to have improved currently. His had called their PCP who recommended they go to ER given need for neurology input.
This time with no complaints of headache chest pain palpitations double vision or speech difficulty.
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
stenosis
Surgical History:� RUL lung resection 2015, melanoma excision
Family History:� Brother had cerebral aneurysm
Social History:� and lives with his . Retired. No tobacco, alcohol, or illicit drug use.
Allergies:� Hydralazine, pollen
Home Medications:
Review of Symptoms:
Patient denies any fever, headache, chest pain, shortness of breath, GI or symptoms.
Review of Symptoms:
Patient denies any fever, headache, chest pain, shortness of breath, GI or symptoms.
Physical Exam:
Elderly man no signs of head or neck trauma oropharynx is clear eyes are clear neck supple with no masses heart rate regular breathing unlabored abdomen soft nontender no lower extremity edema
Neurologic Examination:
Patient is awake and alert he is oriented to the month, location in the hospital and his . He shows some slowness in processing but when prompted to do so will name the months of the year forwards appropriately, name simple objects
consistently and obeys 1 and two-step commands slowly but consistently. No aphasia is apparent no neglect.. On cranial nerve assessment, pupils are 3 mm bilateral, round and reactive to light and accommodation. Visual costa are full. Extraocular
movements are intact. Facial sensations are intact and bilaterally symmetrical, there is no facial asymmetry. Hearing is intact bilaterally to normal conversation volume. Tongue palate and uvula are midline. Sternocleidomastoid strengths are full
bilaterally. Motor strengths are 5/5 bilateral upper and lower extremities on medical research [place] scale. There is no drift or involuntary movement noted. Deep tendon reflexes are 2+ bilateral upper and lower extremities and Babinski is absent
bilaterally. Sensations of pain, touch, temperature and vibration are intact and bilaterally symmetrical. There was no extinction noted on double simultaneous stimulation. Coordination is intact by finger to nose bilaterally.
Neuro Imaging:
Impressions
1. Epilepsy, appears drug resistant, due to previous history of meningitis at an early age associated with cognitive impairment/dementia.
2.
3.
4.
Recommendations:
1. Continue the existing anti seizure drug regimen. Lacosamide 50 mg BID, Carbamazepine 400 mg BID, Levetiracetam 1500 mg BID
2. I will arrange for starting Cenobamate/Xcopri in the outpatient setting. When starting the Cenobamate patient should stop the Lacosamide and keep the Carbamazepine and Levetiracetam.
3. Will need continued monitoring of INR on coumadin
4. Basic labwork here in the ER
5. No barriers to discharge home from my perspective at this time
Discussed patient care with: Patient and his , Dr Camp
[2023-11-02 15:18] VITALS: BP 140/66
== END 2023-11-02 15:20 | disposition home or self-care (01) ==
LOC: EMR 08:25
PROVIDERS: EMERGENCY PHYSICIAN Emergency Medicine; FAMILY PHYSICIAN Internal Medicine; OTHER PHYSICIAN Student in an Organized Health Care Education/Training Program
DX: G40.909 Epilepsy, unspecified, not intractable, without status epilepticus (principal)
CPT/HCPCS: 99284; 96360; 80053; 85025

== ENCOUNTER → 2023-11-20 10:00 | Outpatient (REF) | payer MEDICARE, OTHER, SELFPAY ==
[2023-11-20 11:49] LABS: % Basophils 0.9 % (0-2); % Immature Granulocytes 0.7 % (0-0.5); % Monocytes 15.1 % (1.7-9.3); % Neutrophils 57.3 % (42.2-75.2); Absolute Basophils 0.1 10^3/uL (0-0.2); Absolute Eosinophils 0.6 10^3/uL (0-0.7); Absolute Immature Granulocytes 0.1 10^3/uL (0-0.05); Absolute Lymphocytes 1.3 10^3/uL (1.2-3.4); Absolute Monocytes 1.1 10^3/uL (0.1-0.6); Absolute Neutrophils 4.2 10^3/uL (1.4-6.5); Hematocrit 28.3 % (39.0-52.0); Hemoglobin 9.8 g/dL (13.0-18.0); Mean Corp Hgb Conc. 34.6 g/dL (33.0-37.0); Mean Corpuscular Hgb 33.6 pg (27.0-31.0); Mean Corpuscular Volume 96.9 fL (80.0-94.0); Mean Platelet Volume 10.3 fL (7.4-10.4); Nucleated Red Blood Cells % 0 % (-); Platelet Count 312 10^3/uL (130-400); Red Blood Cell Count 2.92 10^6/uL (4.70-6.10); Red Cell Dist. Width 11.9 % (11.5-14.5); White Blood Cell Count 7.4 10^3/uL (4.8-10.8)
[2023-11-20 13:58] LABS: ALT (SGPT) 35 U/L (0-50); AST (SGOT) 34 U/L (17-59); Albumin 3.9 g/dl (3.5-5.0); Alkaline Phosphatase 119 U/L (38-126); Blood Urea Nitrogen 32 mg/dl (9-20); Calcium 9.4 mg/dl (8.4-10.2); Carbon Dioxide 33 mmol/L (22-30); Chloride 98 mmol/L (98-107); Glucose 95 mg/dl (70-99); Potassium 4.4 mmol/L (3.5-5.1); Sodium 134 mmol/L (135-145); Total Bilirubin 0.3 mg/dl (0.2-1.3); Total Protein 7.1 g/dl (6.3-8.2); eGFR > 60.00
== END ==
LOC: CLAB 10:00
PROVIDERS: ATTENDING PHYSICIAN Internal Medicine
DX: G40.909 Epilepsy, unspecified, not intractable, without status epilepticus (principal); I48.0 Paroxysmal atrial fibrillation; I50.42 Chronic combined systolic (congestive) and diastolic (congestive) heart failure; D61.818 Other pancytopenia
CPT/HCPCS: 36415; 80053; 85025

== ENCOUNTER → 2023-12-11 09:54 | Outpatient (REF) | payer MEDICARE, OTHER, SELFPAY ==
[2023-12-11 10:37] LABS: INR 2.14; PT 23.8 Sec (11.4-14.6)
== END ==
LOC: REG 09:54
PROVIDERS: ATTENDING PHYSICIAN Internal Medicine Cardiovascular Disease; FAMILY PHYSICIAN Internal Medicine
DX: I48.0 Paroxysmal atrial fibrillation (principal); Z79.01 Long term (current) use of anticoagulants
CPT/HCPCS: 36415; 85610

== ENCOUNTER → 2023-12-22 13:47 | Outpatient (REF) | payer MEDICARE, OTHER, SELFPAY ==
[2023-12-22 14:36] LABS: % Basophils 0.9 % (0-2); % Eosinophils 3.2 % (0-6); % Immature Granulocytes 0.2 % (0-0.5); % Lymphocytes 28.5 % (20.5-51.1); % Neutrophils 55.2 % (42.2-75.2); Absolute Basophils 0.1 10^3/uL (0-0.2); Absolute Eosinophils 0.2 10^3/uL (0-0.7); Absolute Lymphocytes 1.6 10^3/uL (1.2-3.4); Absolute Monocytes 0.7 10^3/uL (0.1-0.6); Absolute Neutrophils 3.1 10^3/uL (1.4-6.5); Hematocrit 33.4 % (39.0-52.0); Hemoglobin 11.3 g/dL (13.0-18.0); Mean Corp Hgb Conc. 33.8 g/dL (33.0-37.0); Mean Corpuscular Hgb 33.8 pg (27.0-31.0); Mean Platelet Volume 9.9 fL (7.4-10.4); Nucleated Red Blood Cells % 0 % (-); Platelet Count 246 10^3/uL (130-400); Red Blood Cell Count 3.34 10^6/uL (4.70-6.10); Red Cell Dist. Width 12.4 % (11.5-14.5); White Blood Cell Count 5.6 10^3/uL (4.8-10.8)
[2023-12-22 15:02] LABS: Iron 139 ug/dl (49-181)
[2023-12-22 15:14] LABS: Percent Saturation 54 % (20-50); Total Iron Binding Capacity 257 ug/dl (261-462)
== END ==
LOC: REG 13:47
PROVIDERS: ATTENDING PHYSICIAN Internal Medicine
DX: D64.9 Anemia, unspecified (principal)
CPT/HCPCS: 36415; 83540; 83550; 85025

== ENCOUNTER → 2023-12-26 09:23 | Outpatient (REF) | payer MEDICARE, OTHER, SELFPAY ==
[2023-12-26 12:34] LABS: INR 2.49; PT 26.8 Sec (11.4-14.6)
== END ==
LOC: REG 09:23
PROVIDERS: ATTENDING PHYSICIAN Internal Medicine Cardiovascular Disease; FAMILY PHYSICIAN Internal Medicine
DX: I48.0 Paroxysmal atrial fibrillation (principal); Z79.01 Long term (current) use of anticoagulants
CPT/HCPCS: 36415; 85610

== ENCOUNTER → 2024-01-02 12:22 | Outpatient (REF) | payer MEDICARE, OTHER, SELFPAY ==
[2024-01-02 13:18] LABS: INR 4.08; PT 39.7 Sec (11.4-14.6)
== END ==
LOC: REG 12:22
PROVIDERS: ATTENDING PHYSICIAN Internal Medicine Cardiovascular Disease
DX: I48.0 Paroxysmal atrial fibrillation (principal); Z79.01 Long term (current) use of anticoagulants
CPT/HCPCS: 36415; 85610

== ENCOUNTER → 2024-01-05 14:58 | Outpatient (REF) | payer MEDICARE, OTHER, SELFPAY ==
[2024-01-05 17:44] LABS: INR 2.04; PT 23.2 Sec (11.4-14.6)
== END ==
LOC: REG 14:58
PROVIDERS: ATTENDING PHYSICIAN Internal Medicine Cardiovascular Disease; FAMILY PHYSICIAN Internal Medicine
DX: I48.0 Paroxysmal atrial fibrillation (principal); Z79.01 Long term (current) use of anticoagulants
CPT/HCPCS: 36415; 85610

== ENCOUNTER → 2024-01-16 08:14 | Outpatient (REF) | payer MEDICARE, OTHER, SELFPAY ==
[2024-01-16 10:46] LABS: INR 3.16; PT 32.4 Sec (11.4-14.6)
[2024-01-16 10:48] LABS: Tegretol (Carbamazepine) 9.9 ug/ml (4-12)
== END ==
LOC: REG 08:14
PROVIDERS: ATTENDING PHYSICIAN Nurse Practitioner Adult Health; FAMILY PHYSICIAN Internal Medicine; REFERRING PHYSICIAN Internal Medicine Cardiovascular Disease
DX: I48.0 Paroxysmal atrial fibrillation (principal); Z79.01 Long term (current) use of anticoagulants; G40.201 Localization-related (focal) (partial) symptomatic epilepsy and epileptic syndromes with complex partial seizures, not intractable, with status epilepticus
CPT/HCPCS: 36415; 80156; 85610

== ENCOUNTER → 2024-01-30 09:37 | Outpatient (REF) | payer MEDICARE, OTHER, SELFPAY ==
[2024-01-30 11:16] LABS: INR 3.89; PT 38.2 Sec (11.4-14.6)
== END ==
LOC: REG 09:37
PROVIDERS: ATTENDING PHYSICIAN Internal Medicine Cardiovascular Disease
DX: I48.0 Paroxysmal atrial fibrillation (principal); Z79.01 Long term (current) use of anticoagulants
CPT/HCPCS: 36415; 85610

== ENCOUNTER → 2024-02-13 09:22 | Outpatient (REF) | payer MEDICARE, OTHER, SELFPAY ==
[2024-02-13 10:54] LABS: INR 4.39; PT 42.1 Sec (11.4-14.6)
== END ==
LOC: REG 09:22
PROVIDERS: ATTENDING PHYSICIAN Internal Medicine Cardiovascular Disease; FAMILY PHYSICIAN Internal Medicine
DX: I48.0 Paroxysmal atrial fibrillation (principal); Z79.01 Long term (current) use of anticoagulants
CPT/HCPCS: 36415; 85610

== ENCOUNTER → 2024-02-20 10:50 | Outpatient (REF) | payer MEDICARE, OTHER, SELFPAY ==
[2024-02-20 11:52] LABS: INR 4.65; PT 44.7 Sec (11.4-14.6)
== END ==
LOC: REG 10:50
PROVIDERS: ATTENDING PHYSICIAN Internal Medicine Cardiovascular Disease; FAMILY PHYSICIAN Internal Medicine
DX: I48.0 Paroxysmal atrial fibrillation (principal); Z79.01 Long term (current) use of anticoagulants
CPT/HCPCS: 36415; 85610

== ENCOUNTER → 2024-02-27 10:20 | Outpatient (REF) | payer MEDICARE, OTHER, SELFPAY ==
[2024-02-27 11:32] LABS: INR 2.17; PT 24.1 Sec (11.4-14.6)
== END ==
LOC: REG 10:20
PROVIDERS: ATTENDING PHYSICIAN Internal Medicine Cardiovascular Disease; FAMILY PHYSICIAN Internal Medicine
DX: I48.0 Paroxysmal atrial fibrillation (principal); Z79.01 Long term (current) use of anticoagulants
CPT/HCPCS: 36415; 85610

== ENCOUNTER → 2024-03-08 09:36 | Outpatient (REF) | payer MEDICARE, OTHER, SELFPAY ==
[2024-03-08 11:02] LABS: INR 2.21; PT 24.4 Sec (11.4-14.6)
== END ==
LOC: REG 09:36
PROVIDERS: ATTENDING PHYSICIAN Internal Medicine Cardiovascular Disease; FAMILY PHYSICIAN Internal Medicine
DX: I48.0 Paroxysmal atrial fibrillation (principal); Z79.01 Long term (current) use of anticoagulants
CPT/HCPCS: 36415; 85610

== ENCOUNTER → 2024-03-21 08:26 | Outpatient (REF) | payer MEDICARE, OTHER, SELFPAY ==
[2024-03-21 09:29] LABS: INR 1.95; PT 22.5 Sec (11.4-14.6)
== END ==
LOC: REG 08:26
PROVIDERS: ATTENDING PHYSICIAN Internal Medicine Cardiovascular Disease; FAMILY PHYSICIAN Internal Medicine
DX: I48.0 Paroxysmal atrial fibrillation (principal); Z79.01 Long term (current) use of anticoagulants
CPT/HCPCS: 36415; 85610

== ENCOUNTER → 2024-03-28 10:15 | Outpatient (REF) | payer MEDICARE, OTHER, SELFPAY ==
[2024-03-28 11:30] LABS: INR 1.61; PT 19.3 Sec (11.4-14.6)
== END ==
LOC: REG 10:15
PROVIDERS: ATTENDING PHYSICIAN Internal Medicine Cardiovascular Disease; FAMILY PHYSICIAN Internal Medicine
DX: I48.0 Paroxysmal atrial fibrillation (principal); Z79.01 Long term (current) use of anticoagulants
CPT/HCPCS: 36415; 85610

== ENCOUNTER → 2024-04-04 10:40 | Outpatient (REF) | payer MEDICARE, OTHER, SELFPAY ==
[2024-04-04 12:19] LABS: INR 2.74; PT 29.4 Sec (11.4-14.6)
== END ==
LOC: REG 10:40
PROVIDERS: ATTENDING PHYSICIAN Internal Medicine Cardiovascular Disease; FAMILY PHYSICIAN Internal Medicine
DX: I48.0 Paroxysmal atrial fibrillation (principal); Z79.01 Long term (current) use of anticoagulants
CPT/HCPCS: 36415; 85610

== ENCOUNTER → 2024-04-18 08:41 | Outpatient (REF) | payer MEDICARE, OTHER, SELFPAY ==
[2024-04-18 10:20] LABS: INR 2.92; PT 30.9 Sec (11.4-14.6)
== END ==
LOC: REG 08:41
PROVIDERS: ATTENDING PHYSICIAN Internal Medicine Cardiovascular Disease; FAMILY PHYSICIAN Internal Medicine
DX: I48.0 Paroxysmal atrial fibrillation (principal); Z79.01 Long term (current) use of anticoagulants
CPT/HCPCS: 36415; 85610

== ENCOUNTER → 2024-05-16 07:58 | Outpatient (REF) | payer MEDICARE, OTHER, SELFPAY ==
[2024-05-16 09:50] LABS: INR 2.49; PT 27.3 Sec (11.4-14.6)
== END ==
LOC: REG 07:58
PROVIDERS: ATTENDING PHYSICIAN Internal Medicine Cardiovascular Disease; FAMILY PHYSICIAN Internal Medicine
DX: I48.0 Paroxysmal atrial fibrillation (principal); Z79.01 Long term (current) use of anticoagulants
CPT/HCPCS: 36415; 85610

== ENCOUNTER 2024-05-29 09:22 | Inpatient (IN) | payer MEDICARE, OTHER, SELFPAY ==
[2024-05-27 17:29] VITALS: BP 157/72
--- NOTE | 2024-05-27 17:30 | ED.GENMED ---
ED Provider Triage
<Barbara Merlos AUTOMOTIVE SERVICE TECHNICIAN - Last Filed: 05/27/24 17:39>
-
Patient seen by provider in Triage?: Seen in Triage
Attestation: A medical screening examination has been initiated by a qualified medical provider. Based on the assessment performed at this time, it has been determined that an emergent medical condition may exist and the patient has been informed
that further medical evaluation and possible additional diagnostic testing may be needed.
HPI: 84 yo male here from Dr. Ballard's office for increased confusion. Denies CP, SOB. Oriented to name, date. Not year, or month place.
Expressive aphasia that is new. Stroke alert called.
GENERAL: Alert , in no apparent distress
EYE: No visual abnormalities.
ENT: No visible abnormalities.
LUNGS: No acute respiratory distress
NEUROLOGICAL: Alert and oriented
SKIN: Skin intact. No visible changes.
MUSCULOSKELETAL: Moving extremities normally
PSYCH: Normal and appropriate interaction.
This is a medical evaluation conducted in person to initiate diagnostic evaluation and provide initial therapeutics. Please see further documentation by the treating clinician.
History of Present Illness
<Barbara Merlos AUTOMOTIVE SERVICE TECHNICIAN - Last Filed: 05/27/24 17:39>
General
Chief Complaint: Change in Mental Status
Time Seen by Provider: 05/27/24 17:58
<John Monroe MD - Last Filed: 05/27/24 18:27>
History of Present Illness
History of Present Illness:
Patient is a 84-year-old male with history of paroxysmal A-fib on Coumadin, HFrEF, childhood epilepsy now with focal partial seizures on multiple antiepileptic presenting to the emergency room with a change in his mental status. Patient's last
known normal was 1 PM. He took a nap and that 2:30 PM he woke up. Patient's is at bedside who provides most of the history and states that he was very confused and not making any sense. She states that he was putting on his close
incorrectly.. This is similar to his partial seizures. She called patient's doctor who advised to come in here for further evaluation. no recent falls. He is compliant with all his medications. No fevers chills nausea vomiting diarrhea. No
neck pain. He does not have any issues this morning or late last night.
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
Past History
<Barbara Merlos AUTOMOTIVE SERVICE TECHNICIAN - Last Filed: 05/27/24 17:39>
Past History
ED Past Medical History: Asthma, Cancer (Lung), CHF, CVA, HTN, Hypercholesterolemia, Seizures and Other (COREY, C-pap at night, Meningitis, )
ED Past Surgical History: Tonsilectomy and Other (right lobectomy, Uvulectomy)
Social History
Tobacco: Non-smoker
Alcohol: None
Drug: None
Personal:
Living: with family
Employment: Retired
Family History
Family History: Other (reviewed and Noncontributory)
Phy Exam
<John Monroe MD - Last Filed: 05/27/24 18:27>
Physical Exam
Physical Exam:
GENERAL: in no acute distress
HEENT: normocephalic, extraocular movements intact, moist oral mucosa
NECK: normal inspection
RESPIRATORY: no respiratory distress, clear to auscultation bilaterally
CARDIOVASCULAR: regular rate and rhythm
ABDOMEN/: soft, non-distended, non-tender to palpation, no rebound or guarding
EXTREMITIES: non-tender, no edema/swelling
Neuro: NEUROLOGIC: alert and oriented x 2. Not oriented to time, expressive aphasia and difficulty following complex commands otherwise cranial nerves II-XII intact (unable to assess visual field), right upper extremity strength 5/5, left upper
extremity strength 5/5, right lower extremity strength 5/5, left lower extremity strength 5/5, normal sensation to light touch, normal [id number] and [id number], gait not tested formally
SKIN: warm
NIH Stroke Score
Level of Consciousness: 0 - Alert
LOC questions: 0-Answers both correctly
LOC Commands: 0-Performs both correctly
Best Gaze: 0-Normal
Visual Brandt: 0=Normal, no visual loss
Facial palsy: 0=Normal, symmetrical
Motor - Right Arm: 0=No drift 10 seconds
Motor - Left Arm: 0=No drift 10 seconds
Motor - Right Le-No drift 5 seconds
Motor - Left Le-No drift 5 seconds
Limb Ataxia: 0-Absent
Sensation: 0-Normal
Best Language: 1-Mild aphasia
Dysarthria: 0-Normal
Extinction and Inattention: 0-No abnormality
Total Score:: 1
Course
<Barbara Merlos, AUTOMOTIVE SERVICE TECHNICIAN - Last Filed: 05/27/24 17:39>
Orders/Labs/Results
Orders:
Orders
05/27/24 17:31
Urinalysis Reflex To Culture Urgent
05/27/24 17:38
CT HEAD STROKE ALERT W/o Cont Urgent
Reason For Exam: new expressive aphasia
05/27/24 17:39
Electrocardiogram (*1) Urgent
Reason for Study: TIA/Stroke
EKG- Treatment ONCE
05/27/24 17:53
Complete Blood Count/With Diff Urgent
Comprehensive Metabolic Panel Urgent
PTT Urgent
Prothrombin Time Urgent
Troponin I Urgent
05/27/24 17:55
CT HEAD/NECK ANG STROKE ALERT Urgent
Reason For Exam: stroke alert
Abnormal Lab Results
05/27/24 05/27/24
17:45 17:53
RBC 3.43 L 10^6/uL
(4.70-6.10)
Hgb 12.0 L g/dL
(13.0-18.0)
Hct 34.1 L %
(39.0-52.0)
MCV 99.4 H fL
(80.0-94.0)
MCH 35.0 H pg
(27.0-31.0)
Abs Immat Gran (auto) 0.1 H 10^3/uL
(0-0.05)
Absolute Monos (auto) 0.7 H 10^3/uL
(0.1-0.6)
Immature Gran % 0.7 H %
(0-0.5)
Monocytes % 10.2 H %
(1.7-9.3)
PT 29.1 H Sec
(11.4-14.6)
APTT 40.5 H Sec
(23.4-35.0)
Potassium 5.4 H mmol/L
(3.5-5.1)
Chloride 97 L mmol/L
(98-107)
Carbon Dioxide 32 H mmol/L
(22-30)
BUN 31 H mg/dl
(9-20)
Glucose 117 H mg/dl
(70-99)
Total Protein 8.5 H g/dl
(6.3-8.2)
POC Glucose 124 H mg/dl
(70-99)
05/27/24 17:53
05/27/24 17:53
Vital Signs
Initial and Last Documented VS:
Initial Vital Signs
Temp Pulse Resp BP Pulse Ox
98.3 F 64 16 157/72 96
05/27/24 17:29 05/27/24 17:29 05/27/24 17:29 05/27/24 17:29 05/27/24 17:29
Last Documented Vital Signs
Temp Pulse Resp BP Pulse Ox
98.3 F 71 28 157/72 96
05/27/24 17:29 05/27/24 17:45 05/27/24 17:45 05/27/24 17:29 05/27/24 17:29
<John Monroe MD - Last Filed: 05/27/24 18:27>
Orders/Labs/Results
Orders:
Orders
05/27/24 17:31
Urinalysis Reflex To Culture Urgent
05/27/24 17:38
CT HEAD STROKE ALERT W/o Cont Urgent
Reason For Exam: new expressive aphasia
05/27/24 17:39
Electrocardiogram (*1) Urgent
Reason for Study: TIA/Stroke
EKG- Treatment ONCE
05/27/24 17:53
Complete Blood Count/With Diff Urgent
Comprehensive Metabolic Panel Urgent
PTT Urgent
Prothrombin Time Urgent
Troponin I Urgent
05/27/24 17:55
CT HEAD/NECK ANG STROKE ALERT Urgent
Reason For Exam: stroke alert
Abnormal Lab Results
05/27/24 05/27/24
17:45 17:53
RBC 3.43 L 10^6/uL
(4.70-6.10)
Hgb 12.0 L g/dL
(13.0-18.0)
Hct 34.1 L %
(39.0-52.0)
MCV 99.4 H fL
(80.0-94.0)
MCH 35.0 H pg
(27.0-31.0)
Abs Immat Gran (auto) 0.1 H 10^3/uL
(0-0.05)
Absolute Monos (auto) 0.7 H 10^3/uL
(0.1-0.6)
Immature Gran % 0.7 H %
(0-0.5)
Monocytes % 10.2 H %
(1.7-9.3)
PT 29.1 H Sec
(11.4-14.6)
APTT 40.5 H Sec
(23.4-35.0)
Potassium 5.4 H mmol/L
(3.5-5.1)
Chloride 97 L mmol/L
(98-107)
Carbon Dioxide 32 H mmol/L
(22-30)
BUN 31 H mg/dl
(9-20)
Glucose 117 H mg/dl
(70-99)
Total Protein 8.5 H g/dl
(6.3-8.2)
POC Glucose 124 H mg/dl
(70-99)
05/27/24 17:53
05/27/24 17:53
Vital Signs
Initial and Last Documented VS:
Initial Vital Signs
Temp Pulse Resp BP Pulse Ox
98.3 F 64 16 157/72 96
05/27/24 17:29 05/27/24 17:29 05/27/24 17:29 05/27/24 17:29 05/27/24 17:29
Last Documented Vital Signs
Temp Pulse Resp BP Pulse Ox
98.3 F 71 28 157/72 96
05/27/24 17:29 05/27/24 17:45 05/27/24 17:45 05/27/24 17:29 05/27/24 17:29
<John Monroe MD - Last Filed: 05/27/24 18:27>
MDM/Problems Addressed
Differential Diagnosis Includes:
Patient is a 84-year-old man with history of partial seizures presenting to the emergency department with change in his mental status. Upon arrival patient was evaluated in triage and a stroke alert was called. Vitals here are currently
unremarkable exam does show expressive aphasia. Neurology was at bedside who also evaluated patient and is in agreement. Accu-Chek was normal. Will proceed with CT stroke alert scans. Patient is not a TNK candidate given that he is outside of
the window and he is on Coumadin. This could also be his seizures and patient would benefit from EEG again when he is admitted. Unclear the trigger as he does not have any signs or symptoms to suggest infection and is compliant with his
medications. patient will need admission for further monitoring and evaluation.
<John Monroe MD - Last Filed: 05/27/24 18:27>
*Critical Care Note
Total Time (30-74mins, 75-104mins- exclusive of procedures): 35 (Critical care statement: A total of 35 minutes of critical care time was provided for this patient. This includes management of unstable vital signs, evaluation of the patient at
bedside, reviewing the patient's pertinent medical records, ordering and reviewing studies, arranging urgent treatment wi)
<John Monroe MD - Last Filed: 05/27/24 18:27>
Update Note
Update Note:
CT scan negative. Discussed with hospitalist who accepted patient to their service. Official read of CTA pending.
ED Attending Note
<Barbara Merlos NP - Last Filed: 05/27/24 17:39>
-
Portions of this chart may have been created with voice recognition software.� Occasional wrong word or��sound alike� substitutions may have occurred due to the inherent limitations of voice recognition software.
Discharge Plan
Departure
Patient Disposition: Admit
Date of Disposition: 05/27/24
Time of Disposition: 18:23
Presentation/result/management discussed w/ accepting MD/DO: Hospitalist
Discharge Problem:
Expressive aphasia
Prescriptions:
No Action
minoxidil 10 mg Tablet
10 mg PO BID@0730,1930
furosemide 40 mg Tablet
40 mg PO DAILY@0730
warfarin 1 mg Tablet
1 mg PO DAILY@1800
Rx Instructions:
take with 5mg for total of 6mg
polyethylene glycol 3350 [HealthyLax] 17 gram powder in packet
17 g PO DAILY@0730
clonidine 0.2 mg/24 hr patch weekly
0.2 mg transdermal WE
Patient Comments:
11/02/2023, pt. currently wearing a patch on his right arm; per spouse, patch was changed yesterday (11/01/2023).
levetiracetam 500 mg tablet
1,500 mg PO BID@
cyanocobalamin (vitamin B-12) 1,000 mcg tablet
1,000 mcg PO DAILY@729
pantoprazole 40 mg tablet,delayed release (DR/EC)
40 mg PO DAILY@729
warfarin 5 mg Tablet
5 mg PO DAILY@1800
Rx Instructions:
take with 1mg for total of 6mg
Xcopri 200 mg Tablet
200 mg PO DAILY@1929
carbamazepine 200 mg tablet extended release 12 hr
400 mg PO BID@
Interventions
Interventions:
*Risk Screen - Suicide Last Done: 05/27/24 18:27
*General Assessment Last Done: 05/27/24 17:46
*Neglect/Abuse Screening Last Done: 05/27/24 17:46
ED- Fall Risk Assessment Last Done: 05/27/24 17:46
*ED COVID-19 Vaccine History Last Done: 05/27/24 17:46
ED- Neurological Assessment Last Done: 05/27/24 17:46
ED- Cardiac Assessment Last Done: 05/27/24 17:46
Discharge Date and Time
Print Language: [id number]
[2024-05-27 17:46] VITALS: BMI 23.6
[2024-05-27 17:55] LABS: Glucose - Point of Care 124 mg/dl (70-99)
--- NOTE | 2024-05-27 18:06 | CON.NEURO ---
Consultation
Order
Date of Consultation: 05/27/24
Requesting Provider: ANNE Colby,
Reason for Consult: Stroke alert
Called in: 17:40
CC: none
HPI: This is an 84-year-old right-handed man who presented to [facility] with encephalopathy.
According to patient's spouse the patent was noted to have worsening of expressive language difficulties upon awakening around 2:40 PM. Last time seen in usual state of health� around 1 pm today.
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
Prior AED: Vimpat
ER VS: 157/72, 64, afebrile
PDMP: Xcopri 200 Mg�30 tabs filled in on 05/20/2024, 04/23/2024
Labs: FS 124
CT head-Focal refractory epilepsy.
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
PSH: RUL lung resection(2014), melanoma excision, UPPP, BL cataract surgery
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
FH:Brother- Cerebral aneurysm
All: Hydralazine
ROS: Positive for expressive aphasia, chronic encephalopathy, negative for headache, change in vision or strength
General: Well developed. In no acute distress.
Cardio: Regular rate and rhythm without murmur. Extremities are without cyanosis or edema.
Mental Status: Alert, oriented to person. Did not know his age. Expressive>receptive aphasia. Perseverates. Poor attention and preserved comprehension. Difficulties crossing midline. No hemineglect.
Cranial Nerves:Pupils are equally round, surgical. EOMs full. BTT BL No ptosis. No nystagmus. Mild L facial weakness. Impaired hearing AU. The palate elevated well. SCMs and traps 5/5. Tongue midline. No dysarthria.
Motor: No PD or leg drift
Reflexes: positive for BL grasp
Sensory: limited due to poor attention
Coordination: No tremor.
Gait: deferred
Assessment and Plan:
I. Expressive aphasia. Not a candidate for IV thrombolysis due to active systemic anticoagulation
II. Focal refractory epilepsy
III. Multifactorial encephalopathy (neurodegenerative, vascular, epileptic)
IV. History of meningitis, BL SDH
V. A-Fib
. History of melanoma
-Seizure precaution
-Continue Keppra 1,500 mg PO BID, Tegretol 400 mg twice daily and Xcopri 200 mg once a day
-Check Mg, CBC, INR, ua, ua cx, Tegretol level
-Routine EEG
-Follow up CTA head/neck results
-DVT prophylaxis.
I personally reviewed all radiology and labs along with past medical records pertinent to current medical problems. Total time spent in patient care is 60 minutes.
Thank you for allowing us to participate in the care of this patient. We will continue to follow. Please do not hesitate to contact us with any questions or concerns.
Subjective/Objective
Subjective Data
Date of Service: May 27, 2024
Objective Data
Vital Signs
Temp Pulse Resp BP Pulse Ox
36.8 C 71 28 157/72 96
05/27/24 17:29 05/27/24 17:45 05/27/24 17:45 05/27/24 17:29 05/27/24 17:29
Patient Allergies
hydralazine Allergy (Verified 11/02/23 08:36)
Unknown
pollen extracts Allergy (Verified 11/02/23 08:36)
nasal symptoms
Medications
-
Home Medications
�Medication �Instructions �Recorded
minoxidil 10 mg tablet 10 mg PO BID@0730,1930 Blood 01/22/23
Pressure
clonidine 0.2 mg/24 hr weekly 0.2 mg transdermal WE Blood 10/17/23
transdermal patch Pressure
cyanocobalamin (vitamin B-12) 1,000 mcg PO DAILY@729 Supplement 10/17/23
1,000 mcg tablet
furosemide 40 mg tablet 40 mg PO DAILY@30 Fluid 10/17/23
Retention/Swelling
levetiracetam 500 mg tablet 1,500 mg PO BID@729,193 seizures 10/17/23
pantoprazole 40 mg tablet,delayed 40 mg PO DAILY@30 10/17/23
release Gastrointestinal Issue
polyethylene glycol 3350 17 gram 17 g PO DAILY@72910/17/23
oral powder packet (HealthyLax)
warfarin 1 mg tablet 1 mg PO DAILY@1800 Blood Clot 10/17/23
Prevention/Tx
carbamazepine 200 mg 400 mg PO BID@729,1929 Seizures 05/27/24
tablet,extended release,12 hr
cenobamate 200 mg tablet (Xcopri) 200 mg PO DAILY@192905/27/24
warfarin 5 mg tablet 5 mg PO DAILY@1800 05/27/24
Vital Signs and Labs
-
Vital Signs and Labs:
Vital Signs
Temp Pulse Resp BP Pulse Ox
36.8 C 71 28 157/72 96
05/27/24 17:29 05/27/24 17:45 05/27/24 17:45 05/27/24 17:29 05/27/24 17:29
Lab Results
05/27/24 17:53
05/27/24 17:53
PT 29.1 Sec (11.4-14.6) H 05/27/24 17:53
INR 2.76 05/27/24 17:53
APTT 40.5 Sec (23.4-35.0) H 05/27/24 17:53
Sodium 144 mmol/L (135-145) 05/27/24 17:53
Potassium 5.4 mmol/L (3.5-5.1) H 05/27/24 17:53
BUN 31 mg/dl (9-20) H 05/27/24 17:53
Glucose 117 mg/dl (70-99) H 05/27/24 17:53
Calcium 9.9 mg/dl (8.4-10.2) 05/27/24 17:53
Home Medications
-
Home Medications
minoxidil 10 mg tablet 10 mg PO BID@07,1929 Blood Pressure 01/22/23
clonidine 0.2 mg/24 hr weekly transdermal patch 0.2 mg transdermal WE Blood Pressure 10/17/23
cyanocobalamin (vitamin B-12) 1,000 mcg tablet 1,000 mcg PO DAILY@729 Supplement 10/17/23
furosemide 40 mg tablet 40 mg PO DAILY@729 Fluid Retention/Swelling 10/17/23
levetiracetam 500 mg tablet 1,500 mg PO BID@729,1929 seizures 10/17/23
pantoprazole 40 mg tablet,delayed release 40 mg PO DAILY@729 Gastrointestinal Issue 10/17/23
polyethylene glycol 3350 17 gram oral powder packet (HealthyLax) 17 g PO DAILY@72910/17/23
warfarin 1 mg tablet 1 mg PO DAILY@1800 Blood Clot Prevention/Tx 10/17/23
carbamazepine 200 mg tablet,extended release,12 hr 400 mg PO BID@729,1929 Seizures 05/27/24
cenobamate 200 mg tablet (Xcopri) 200 mg PO DAILY@192905/27/24
warfarin 5 mg tablet 5 mg PO DAILY@1800 05/27/24
[2024-05-27 18:08] LABS: % Eosinophils 2.2 % (0-6); % Immature Granulocytes 0.7 % (0-0.5); % Lymphocytes 28.5 % (20.5-51.1); % Monocytes 10.2 % (1.7-9.3); % Neutrophils 57.4 % (42.2-75.2); Absolute Basophils 0.1 10^3/uL (0-0.2); Absolute Eosinophils 0.2 10^3/uL (0-0.7); Absolute Immature Granulocytes 0.1 10^3/uL (0-0.05); Absolute Monocytes 0.7 10^3/uL (0.1-0.6); Absolute Neutrophils 3.9 10^3/uL (1.4-6.5); Hematocrit 34.1 % (39.0-52.0); Mean Corp Hgb Conc. 35.2 g/dL (33.0-37.0); Mean Corpuscular Volume 99.4 fL (80.0-94.0); Mean Platelet Volume 10.3 fL (7.4-10.4); Nucleated Red Blood Cells % 0 % (-); Platelet Count 243 10^3/uL (130-400); Red Blood Cell Count 3.43 10^6/uL (4.70-6.10); White Blood Cell Count 6.9 10^3/uL (4.8-10.8)
[2024-05-27 18:11] VITALS: BP 142/116
[2024-05-27 18:12] LABS: APTT 40.5 Sec (23.4-35.0); INR 2.76; PT 29.1 Sec (11.4-14.6)
[2024-05-27 18:16] LABS: ALT (SGPT) 34 U/L (0-50); AST (SGOT) 37 U/L (17-59); Alkaline Phosphatase 94 U/L (38-126); Blood Urea Nitrogen 31 mg/dl (9-20); Calcium 9.9 mg/dl (8.4-10.2); Carbon Dioxide 32 mmol/L (22-30); Chloride 97 mmol/L (98-107); Estimated Creatinine Clearance 45 ml/min; Glucose 117 mg/dl (70-99); Potassium 5.4 mmol/L (3.5-5.1); Sodium 144 mmol/L (135-145); Total Bilirubin 0.3 mg/dl (0.2-1.3); Total Protein 8.5 g/dl (6.3-8.2); eGFR 54.85
[2024-05-27 18:27] LABS: Troponin I 0.013 ng/ml
--- NOTE | 2024-05-27 18:32 | HPS.HSE ---
Family Physician
-
Family Physician: Robin Garcia
Chief Complaint
-
change in mental status
History of Present Illness
This is an 84-year-old male with medical history of dementia, seizures on multiple antiepileptic drugs, paroxysmal atrial fibrillation on anticoagulation with Coumadin, hypertension, COREY on CPAP, history of CVA presenting to the emergency department
after being found confused by spouse.
Patient has a history of generalized seizures since childhood for which he had been on multiple antiepileptic drugs. He was recently diagnosed with focal seizures and was started on a scope at around October. The seizures was accompanied by
confusion but no neuromuscular movements abnormalities. After getting stabilized on Xcopri he has had 1 other episode of confusion that was transient and resolved within the same day and was thought to be perhaps related to delayed dosing of his
Tegretol. He has otherwise been in usual state of health up until today.
According to spouse upon arousal the patient was actually confused but was intermittently lucid and able to follow commands. He was able to eat very fast and was confused again. Later on the confusion resolved. He had lunch and again had
confusional episode. There was no specific difficulty getting out this was he was just unable to remember things or follow commands. He was unable to put on his clothes appropriately.
Patient had an appointment with his PMD Dr. Ballard who evaluated patient and then sent to the emergency department. Patient himself denies having any headache. He denies double vision or blurry vision. He denies any nausea or vomiting. He denies
any cough fevers or chills. He denies abdominal pain with diarrhea. He denies any urinary symptoms including frequency incontinence dysuria or hematuria.
In the ED NIH score was 1. He was alert and oriented x 2 with expressive aphasia. He was afebrile with a temp of 98.3 blood pressure 157/71 and pulse of 71. Oxygen saturation was normal on room air at 96. ECG accelerated junctional rhythm/afib
at 70s. CT of the head was negative. CT angio shows no acute large vessel occlusion, no aneurysm or acute bleed. CBC was unremarkable. Chemistries was also mostly unremarkable with no baseline creatinine of 1.3. His potassium was 5.4 and bicarb
was 32.
Medical History
Past Medical History
Past Medical History: Reports Arrhythmia (Proximal atrial fibrillation), Cancer (Lung cancer status post lobectomy), CVA and HTN
Additional Past Medical History:
COREY on CPAP
Anemia
Past Surgical History: Reports Tonsilectomy and Other (Right lobectomy)
Social History
Tobacco: Non-smoker
Alcohol: None
Drug: None
Personal:
Living: With Family
Employment: Retired
Family History
Family History: Not pertinent
Allergies / Home Medications
Allergies reflects when Allergies were last updated in [facility].
Home Medications with original date entered in [facility]
Allergy/Medication List:
Allergies
Allergy/AdvReac Type Severity Reaction Status Date / Time
hydralazine Allergy Unknown Verified 11/02/23 08:36
pollen extracts Allergy nasal Verified 11/02/23 08:36
symptoms
Home Medications
minoxidil 10 mg tablet 10 mg PO BID@0730,1929 Blood Pressure 01/22/23
clonidine 0.2 mg/24 hr weekly transdermal patch 0.2 mg transdermal WE Blood Pressure 10/17/23
cyanocobalamin (vitamin B-12) 1,000 mcg tablet 1,000 mcg PO DAILY@0730 Supplement 10/17/23
furosemide 40 mg tablet 40 mg PO DAILY@0730 Fluid Retention/Swelling 10/17/23
levetiracetam 500 mg tablet 1,500 mg PO BID@30,1930 seizures 10/17/23
pantoprazole 40 mg tablet,delayed release 40 mg PO DAILY@30 Gastrointestinal Issue 10/17/23
polyethylene glycol 3350 17 gram oral powder packet (HealthyLax) 17 g PO DAILY@0730 10/17/23
warfarin 1 mg tablet 1 mg PO DAILY@1800 Blood Clot Prevention/Tx 10/17/23
carbamazepine 200 mg tablet,extended release,12 hr 400 mg PO BID@0730,1930 Seizures 05/27/24
cenobamate 200 mg tablet (Xcopri) 200 mg PO DAILY@1930 05/27/24
warfarin 5 mg tablet 5 mg PO DAILY@1800 05/27/24
Review of Systems
-
History Source: Patient
Constitutional: Reports No Symptoms
EENT: Reports No Symptoms
Respiratory: Reports No Symptoms
Cardiac: Reports No Symptoms
Abdomen/GI: Reports No Symptoms
: Reports No Symptoms
Musculoskeletal: Reports No Symptoms
Skin: Reports No Symptoms
Neurological: Reports Other (confusion, speech difficulty)
Endocrine: Reports No Symptoms
Hematologic/Lymphatic: Reports No Symptoms
Psych: Reports No Symptoms
Physical Exam
Vital Signs
Vital Signs
Temp Pulse Resp BP Pulse Ox
98.3 F 71 28 157/72 96
05/27/24 17:29 05/27/24 17:45 05/27/24 17:45 05/27/24 17:29 05/27/24 17:29
Physical Exam
General: Well Developed, Well Nourished and No Apparent Distress
HEENT: NormoCephalic, Anicteric, Moist mucous membranes and Atraumatic
Respiratory: Clear
Cardiac: S1/S2 and Regular Rhythm
Breast: Deferred by me
GI: Soft, Non Tender, Non Distended and Normal Bowel Sounds
Rectal: Deferred by Provider
Genito-urinary: Deferred by me
Musculoskeletal: No Clubbing, No Cyanosis and No Edema
Skin: Warm
Neuro: Alert and Oriented (Oriented to person, was not oriented to place or time for me.)
Hematologic/Lymphatic: No Lymphadenopathy
Psych: Calm
Laboratory Results
-
05/27/24 17:53
05/27/24 17:53
Laboratory Results
PT 29.1 Sec (11.4-14.6) H 05/27/24 17:53
INR 2.76 05/27/24 17:53
APTT 40.5 Sec (23.4-35.0) H 05/27/24 17:53
Total Bilirubin 0.3 mg/dl (0.2-1.3) 05/27/24 17:53
AST 37 U/L (17-59) 05/27/24 17:53
ALT 34 U/L (0-50) 05/27/24 17:53
Alkaline Phosphatase 94 U/L (38-126) 05/27/24 17:53
Troponin I 0.013 ng/ml 05/27/24 17:53
Data Reviewed
-
CT Scan: Report Reviewed by me
Medical Tests (Nuc Med, Echo, EKG etc): Image Personally Visualized and interpreted
Lab Data: Discussed with Physician
Old Records: Reviewed
Impression/Plan
-
IMPRESSION:
Patient is a 84-year-old with history of generalized seizures as well as a more recent history of focal seizures that is associated with confusional episodes status post EEG showing focal epileptic discharges and now stably on 200 mg of cenobamate
daily presents to the emergency department with waxing and waning confusional episode today without vision, sensory or motor deficits. He continues to have difficulty following commands which is worse than his usual baseline. Patient has fairly
difficult to control hypertension but is currently hemodynamically stable. Initial workup in the ED is negative.
PLAN:
AMS - CVA vs Focal/partial seizures. No signs of acute infection. Initial w/u is negative for stroke. NIHSS = 1 at this time. Patient therapeutic on coumadin and out of window for TNK.
- admit to telemetry
- INR 2.5, continue anticoagulation
- mri/eeg in am
- check u/a, tsh, b12 levels
- check tegretol levels
- continue home cenobamate, tegretol and keppra for now
- neurology consulted.
HTN
- continue clonidine, minoxidil, furosemide
PAFIB - rate controlled at this time. INR at goal
- continue coumadin 6mg daily
DVT PPX - on coumadin
Code status - full code
[2024-05-27 19:01] VITALS: BP 122/80
[2024-05-27 19:42] LABS: COVID-19 Antigen Negative (Negative); Tegretol (Carbamazepine) 8.3 ug/ml (4-12)
[2024-05-27 20:00] VITALS: BP 133/61
--- NOTE | 2024-05-27 20:17 | EDRN ---
Patient's gave patient's dose of Xcpri 200mg at 1930 as she states we do not carry medication. She is taking the medication home with her.
[2024-05-27 20:36] VITALS: BP 152/83; BMI 23.1
[2024-05-27] MEDS: LONITEN 10 MG PO (22:16)
[2024-05-27] MEDS: KEPPRA 1500 MG PO (22:16)
[2024-05-27] MEDS: TEGRETOL XR (EXTENDED RELEASE) 400 MG PO (22:17)
[2024-05-27 23:39] VITALS: BP 114/57
[2024-05-28] VITALS (7 sets, daily range): BP systolic 93–147; BP diastolic 60–72; PULSE 58; O2SAT 97
[2024-05-28] MEDS: NON-FORMULARY ITEM PO (02:30)
[2024-05-28 08:15] LABS: INR 2.57; PT 27.5 Sec (11.4-14.6)
[2024-05-28 08:32] LABS: Blood Urea Nitrogen 29 mg/dl (9-20); Calcium 9.4 mg/dl (8.4-10.2); Carbon Dioxide 31 mmol/L (22-30); Chloride 100 mmol/L (98-107); Estimated Creatinine Clearance 45 ml/min; Glucose 92 mg/dl (70-99); Potassium 4.5 mmol/L (3.5-5.1); Sodium 141 mmol/L (135-145); eGFR 54.85
[2024-05-28 09:28] LABS: TSH 1.48 uIU/ml (0.47-4.68)
--- NOTE | 2024-05-28 09:40 | W.PN.NEURO.1 ---
Today's Communication / Plan
-
.
Subjective/Objective
Subjective Data
Date of Service: May 28, 2024
24h events: afebrile. Mr. Olvera reports no complaints.
Routine EEG: transient generalized 2-3 Hz spike and slow-wave activity lasting over 10 minutes consistent with electrographic status epilepticus.
Tegretol level-8.3.
Prior AED: Dilantin, Depakote, Vimpat
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
PSH: RUL lung resection(2014), melanoma excision, UPPP, BL cataract surgery
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
FH:Brother- cerebral aneurysm
All: Hydralazine
ROS: Positive for expressive aphasia, chronic encephalopathy, negative for headache, change in vision or strength
General: Well developed. In no acute distress.
Cardio: Regular rate and rhythm. Extremities are without cyanosis or edema.
Mental Status: Alert, oriented to name, '27'. Expressive>receptive aphasia(improved). Poor attention and preserved comprehension. Follows simple requests
Cranial Nerves:Pupils are equally round, surgical. EOMs full. BTT BL No ptosis. No nystagmus. Mild L facial weakness. Impaired hearing AU. The palate elevated well. SCMs and traps 5/5. Tongue midline. No dysarthria.
Motor: No PD or leg drift
Reflexes: positive for BL grasp
Coordination: No tremor or myoclonus
Gait: deferred
Assessment and Plan:
I. �Focal status epilepticus without impairment of consciousness
II. Multifactorial encephalopathy (neurodegenerative, vascular, epileptic)
III. History of meningitis, BL SDH
IV. A-Fib
V. History of melanoma
. 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 Would defer CD US given underlying dementia and age.
-Seizure precaution
-Increase Keppra to 1,750 mg PO BID, continue Tegretol 400 mg twice daily and Xcopri 200 mg once a day
-Would consider Clobazam after med records review
-Ativan 1 mg Q4h PRN
-Repeat EEG tomorrow in AM
-DVT prophylaxis.
I personally reviewed all radiology and labs along with past medical records pertinent to current medical problems. Total time spent in patient care is 35 minutes.
Thank you for allowing us to participate in the care of this patient. We will continue to follow. Please do not hesitate to contact us with any questions or concerns.
Objective Data
Vital Signs
Temp Pulse Resp BP Pulse Ox
37.1 C 60 16 132/64 96
05/28/24 07:00 05/28/24 07:00 05/28/24 07:00 05/28/24 07:00 05/28/24 07:00
Lab Results
05/27/24 17:53
05/28/24 07:25
PT 27.5 Sec (11.4-14.6) H 05/28/24 07:25
INR 2.57 05/28/24 07:25
APTT 40.5 Sec (23.4-35.0) H 05/27/24 17:53
Sodium 141 mmol/L (135-145) 05/28/24 07:25
Potassium 4.5 mmol/L (3.5-5.1) 05/28/24 07:25
BUN 29 mg/dl (9-20) H 05/28/24 07:25
Glucose 92 mg/dl (70-99) 05/28/24 07:25
Calcium 9.4 mg/dl (8.4-10.2) 05/28/24 07:25
Patient Allergies
hydralazine Allergy (Verified 11/02/23 08:36)
Unknown
pollen extracts Allergy (Verified 11/02/23 08:36)
nasal symptoms
Vital Signs and Labs
-
Vital Signs and Labs:
Vital Signs
Temp Pulse Resp BP Pulse Ox
36.4 C 62 16 93/66 98
05/28/24 17:04 05/28/24 17:04 05/28/24 17:04 05/28/24 17:04 05/28/24 17:04
Lab Results
05/27/24 17:53
05/28/24 07:25
PT 27.5 Sec (11.4-14.6) H 05/28/24 07:25
INR 2.57 05/28/24 07:25
APTT 40.5 Sec (23.4-35.0) H 05/27/24 17:53
Sodium 141 mmol/L (135-145) 05/28/24 07:25
Potassium 4.5 mmol/L (3.5-5.1) 05/28/24 07:25
BUN 29 mg/dl (9-20) H 05/28/24 07:25
Glucose 92 mg/dl (70-99) 05/28/24 07:25
Calcium 9.4 mg/dl (8.4-10.2) 05/28/24 07:25
Vitamin B12 > 1000 pg/ml (239-931) H 05/28/24 07:25
Medications
-
Medications:
Generic Name Dose Route Start Last Admin
Trade Name Freq PRN Reason Stop Dose Admin
Acetaminophen 650 mg 05/27/24 20:31
Acetaminophen 650 Mg Rectal Suppository RECTAL 06/24/24 20:30
Q4HPRN PRN
GARZON, mild pain, or temp >100.4F
Acetaminophen 650 mg 05/27/24 20:31
Acetaminophen 325 Mg Tablet PO 06/24/24 20:30
Q4HPRN PRN
GARZON, mild pain, or temp >100.4F
Carbamazepine 400 mg 05/27/24 19:30 05/28/24 09:58
Carbamazepine 100 Mg Extended Release (12 Hour) Tablet PO 06/24/24 19:29 400 mg
BID@ VIRAJ Administration
Clonidine HCl 0.2 mg 05/29/24 08:00
Clonidine 0.2 Mg Patch TRANSDERM 06/26/24 07:59
WE VIRAJ
Cyanocobalamin 1,000 mcg 05/28/24 07:30 05/28/24 10:00
Cyanocobalamin 1,000 Mcg Tablet PO 06/25/24 07:29 1,000 mcg
DAILY@729 VIRAJ Administration
Furosemide 40 mg 05/28/24 07:30 05/28/24 10:00
Furosemide 40 Mg Tablet PO 06/25/24 07:29 40 mg
DAILY@729 VIRAJ Administration
Levetiracetam 1,750 mg 05/28/24 20:00
Levetiracetam (100 Mg/Ml) 500 Mg/5 Ml Vial IV 06/25/24 19:59
Q12 VIRAJ
Minoxidil 10 mg 05/27/24 19:30 05/28/24 10:00
Minoxidil 10 Mg Tablet PO 06/24/24 19:29 10 mg
BID@ VIRAJ Administration
Cenobamate [Xcopri] 0 mg 05/27/24 19:30 05/28/24 02:30
Take 200 Mg (4 X 50 PO 06/24/24 19:29 Not Given
Mg) Tablet Po Daily@ DAILY@1929 VIRAJ
1929
Pantoprazole Sodium 40 mg 05/28/24 07:30 05/28/24 10:00
Pantoprazole 40 Mg Delayed Release Tablet PO 06/25/24 07:29 40 mg
DAILY@729 VIRAJ Administration
Polyethylene Glycol 17 grams 05/28/24 07:30 05/28/24 10:01
Polyethylene Glycol Powder 17 Grams Packet PO 06/25/24 07:29 17 grams
DAILY@0730 VIRAJ Administration
Sodium Chloride 0 flush 05/27/24 22:00 05/28/24 09:53
Sodium Chloride 0.9% (Flush) Syringe IV 06/24/24 21:59 1 flush
PER PROTOCOL VIRAJ Administration
Warfarin Sodium 6 mg 05/28/24 18:00 05/28/24 17:36
Warfarin 3 Mg Tablet PO 06/02/24 17:59 6 mg
DAILY@1800 VIRAJ Administration
Home Medications
-
Home Medications
minoxidil 10 mg tablet 10 mg PO BID@0730,193 Blood Pressure 01/22/23
clonidine 0.2 mg/24 hr weekly transdermal patch 0.2 mg transdermal WE Blood Pressure 10/17/23
cyanocobalamin (vitamin B-12) 1,000 mcg tablet 1,000 mcg PO DAILY@729 Supplement 10/17/23
furosemide 40 mg tablet 40 mg PO DAILY@729 Fluid Retention/Swelling 10/17/23
levetiracetam 500 mg tablet 1,500 mg PO BID@07,1929 seizures 10/17/23
pantoprazole 40 mg tablet,delayed release 40 mg PO DAILY@729 Gastrointestinal Issue 10/17/23
polyethylene glycol 3350 17 gram oral powder packet (HealthyLax) 17 g PO DAILY@729 Gastrointestinal Issue 10/17/23
warfarin 1 mg tablet 1 mg PO DAILY@1800 Blood Clot Prevention/Tx 10/17/23
carbamazepine 200 mg tablet,extended release,12 hr 400 mg PO BID@0730,193 Seizures 05/27/24
cenobamate 200 mg tablet (Xcopri) 200 mg PO DAILY@193 Neurological Condition 05/27/24
warfarin 5 mg tablet 5 mg PO DAILY@1800 05/27/24
[2024-05-28 09:47] LABS: Vitamin B12 > 1000 pg/ml (239-931)
[2024-05-28] MEDS: NSS (PRESERVATIVE FREE) 0.5 ML IV ×2 (09:52→18:07)
[2024-05-28] MEDS: FLUSH (NSS) 1 FLUSH IV (09:53)
[2024-05-28] MEDS: ATIVAN 1 MG IV ×2 (09:53→18:06)
[2024-05-28] MEDS: TEGRETOL XR (EXTENDED RELEASE) 400 MG PO ×2 (09:58→20:02)
[2024-05-28] MEDS: KEPPRA 1500 MG PO (09:59)
[2024-05-28] MEDS: PROTONIX 40 MG PO (10:00)
[2024-05-28] MEDS: LONITEN 10 MG PO ×2 (10:00→20:00)
[2024-05-28] MEDS: VITAMIN B-12 1000 MCG PO (10:00)
[2024-05-28] MEDS: LASIX 40 MG PO (10:00)
[2024-05-28] MEDS: MIRALAX 17 GRAMS PO (10:01)
--- NOTE | 2024-05-28 10:02 | W.PN.HOSP.TC ---
Addendum entered and electronically signed by Devin Hills MD 05/28/24 22:27:
Attending Addendum-
I saw and evaluated the patient. I reviewed the resident�s note and agree with findings and plan as documented in the resident�s note. Sub: Per patient he feels that he is back to baseline. Seen with present who states he is not acting himself.
Denies neuro deficits. No further seizure activity. Full 12 point ROS reviewed and negative except as documented Exam: Vitals reviewed in chart GEN-NAD heart RRR lungs clear abd soft LE no edema Neuro AAO x 2 MS 12/02 sensation intact
# Recurrent Uncontrolled Seizure
- cont telemetry
- neuro input appreciated
- eeg- 05/28- no seizure activity
- check MRI
- check tegretol levels
- increase keppra
- continue home cenobamate, tegretol
- monitor closely
#Hyperkalemia
- resolved
- repeat BMP in am
# Carotid Stenosis
- check b/u carotid U/S
- add asa statin if able
# HTN
- continue clonidine, minoxidil, furosemide
# PAFIB
- rate controlled
- ther INR 2-3
- continue coumadin 6mg daily
- repeat INR in am
# COREY
- cont CPAP
# Dementia
- monitor for acute delirium
# HFmrEF
- not in AE
- 08/23 echo EF 45-50%
- cont lasix
DVT PPX - on Coumadin
Code status - full code
Time spent coordinating care, review of plan of care with resident, personally reviewed records in EMR, med rec, consults, notes, labs, radiology, d/w nursing and � 59 mins
Original Note:
Today's Communication/Plan
-
EEG and carotid US pending
Changes in anti-epileptic medication pending neurology input
Assessment / Plan
Assessment / Plan
84-year-old male with past medical history of generalized seizures on multiple antiepileptic medication presented to ED with new onset confusion. Recently diagnosed with focal seizures associated with confusion in August. Started on Cenobamate.
Had 1 episode of confusion since on the medication that resolved within 24 hours. However, on 05/27/2024 confusion ongoing ED worked him up for stroke. Head CT and head and neck CTA no evidence of acute abnormality. Neurology consulted, EEG
pending.
#AMS�as CVA versus focal/partial seizures. No signs of acute infection. Initial workup was negative for stroke. Patient on therapeutic Coumadin.
NIHSS = 1 for dysarthria on admission. Dysarthria resolved.
Admit to telemetry
INR 2.57. Therapeutic. Continue Coumadin 6 mg daily
EEG pending
MRI not needed per neurology
UA pending
TSH and B12 within normal limits
Carbamazepine levels therapeutic range
Continue home carbamazepine, cenobamate, Keppra for now
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
Carotid US pending
Neurology appreciated
#Hypertension
Continue clonidine, minoxidil, furosemide
#Paroxysmal A-fib
Rate controlled at this time
INR at goal 2.57
Continue Coumadin 6 mg daily
# Hyperkalemia
Potassium 5.4
Monitor BMP
#hx of CVA
#hx Lung ca s/p right lobectomy
#hx COREY on CPAP
#hx of anemia
#hx of mild to aortic stenosis
DVT prophylaxis on Coumadin
Status full code
Anticipated Discharge: 24 - 48 hours
Subjective/Interval History
-
Date of Service: May 28, 2024
Objective Data
-
Labs:
Laboratory Results
05/28/24
07:25
PT 27.5 H
INR 2.57
Sodium 141
Potassium 4.5
Chloride 100
Carbon Dioxide 31 H
BUN 29 H
Creatinine 1.3
Glucose 92
Calcium 9.4
Vital Signs:
Vital Signs
Temp Pulse Resp BP Pulse Ox
98.7 F 60 16 132/64 96
05/28/24 07:00 05/28/24 07:00 05/28/24 07:00 05/28/24 07:00 05/28/24 07:00
I&O
05/27/24 05/28/24 05/29/24
06:59 06:59 06:59
Intake Total 720 / 720
Balance 720 / 720
Review of Systems
-
History Source: Patient
EENT: Reports No Symptoms Reported
Respiratory: Reports No Symptoms
Cardiac: Reports No Symptoms
Abdomen/GI: Reports No Symptoms
Genitourinary: Reports No Symptoms
Neuro: Reports No Symptoms
Physical Exam
-
General: Well Developed and No Apparent Distress
Respiratory: Clear to Auscultation
Cardiac: Regular Rhythm and S1/S2
GI: Soft and Nontender
Musculoskeletal: No Edema
Skin: Warm
Neuro: AO x 3; Negative Slurred Speech or Facial Droop
Psych: Calm
--- NOTE | 2024-05-28 11:58 | CM ---
Pt seen bedside w/ spouse. Pt lives w/ spouse in a 2STH- 1 step to enter through garage and 1 step to enter from front door
Prev. independent w/ walker. Per spouse, pt has two walkers and two wheelchairs. Pt does not use wheelchairs. Pt has shower chair, rails, hospital bed, stair glide and grab bars throughout the home for support.
Prev. was at [facility] for SNF
[facility] in the past, along w/ [facility] that was discontinued due to pt's health improvements per spouse
Pt states if HH is rec. he prefers [facility] again
Address, point of contact and insurances verified
PCP: Dr. Robin Garcia
Pharmacy: [facility]
PT/ST pending
Plan: Home w/ VN anticipated
--- NOTE | 2024-05-28 12:32 | PTOTSP ---
ST Acute Care Evaluations
Pt currently presents with clinical symptoms of possible mild pharyngeal dysphagia characterized by brief, occasional throat clears after ingestion of thin liquids via straw.
Recommendations:
- Continue with regular solids, thin liquids, meds as tolerated.
- Aspiration precautions: Fully upright, small bites/sips, slow intake.
- WEIGHTS AND MEASURES SEALER to f/u re: diet tolerance and to determine if pt would benefit from an updated instrumental swallow study.
- WEIGHTS AND MEASURES SEALER to f/u re: completion of a cognitive linguistic evaluation.
--- NOTE | 2024-05-28 13:40 | PTOTSP ---
ST Acute Care Evaluation
Baseline Information:
- Pt lives at home with his in a condo.
- Pt wears reading glasses; pt does not wear hearing aides but states he needs them.
- Pt no longer drives, but thinks he can.
- Pt's takes care of all grocery shopping, cooking, cleaning, laundry, finances, and medication management.
- Pt states he thinks he would remember to take his pills on his own, but his disagrees. even places alarm reminders for herself for his medication times.
- Pt has 2 children - one lives in [place] and one lives in [place].
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
Clinical Observations:
- Pt presents with signs of suspected hearing loss - pt occasionally misheard words and substituted high frequency sounds (ivan for face; alvarado for mahin).
- Pt's speech production was clear and fully intelligible.
- Pt's verbal output was fluent, occasionally slow due to suspected language formulation difficulties.
- Pt appeared to understand all verbalizations of others, with the exception of some miscommunications due to hearing loss.
- Pt with noticeable short term memory loss - would ask the same question a few times throughout the session.
Findings:
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
formulation/abstraction. Pt's relative strengths are in the areas of orientation and attention, though he does often need directions to be repeated to him. Pt communicated that he would like to work on his memory skills.
Difficult to discern as to whether or not pt's current cognitive linguistic dysfunction is 2/2 recurrent focal seizures vs. neurodegenerative origin vs. vascular origin vs. a combination of origins.
Recommendations:
- DOUBLE END TRIMMER to tx cognitive linguistic impairment while admitted.
- OP DOUBLE END TRIMMER tx for cognitive linguistic dysfunction upon d/c.
--- NOTE | 2024-05-28 16:16 | EEG.RPT ---
Addendum entered and electronically signed by Edward Edouard MD 05/29/24 07:25:
Original Note:
Electroencephalogram Report
Recording
Date of EE05/28/24
Type of EEG: Routine
Length of EEG recordin minutes
Done with Video Recording: Yes
Patient Status: Inpatient
Recording Conditions: Awake and Drowsy
Hyperventilation Performed: No
Photic Stimulation Performed: No
Report
LESS THAN 1 HOUR EEG REPORT
LESS THAN 1 HOUR EEG INTERPRETATION:
Severely abnormal EEG for age due to continuous mildly variable 2.5/s high amplitude spike and slow-wave discharges becoming nearly absent by the end of the study.
CLINICAL CORRELATION:
This study was suggestive of Status epilepticus, appearing to have resolved by the end of the study. Immediate clinical correlation is advised.
METHODS:
A 21 channel digitized electroencephalogram (EEG) was performed at the bedside. The 10/20 international system of electrode placement was used with ECG and lateral/vertical eye movements recorded. Bancore A/S QEEG analysis was utilized.
ELECTROENCEPHALOGRAPHER IMPRESSION(S):
Quality of study: Good
Background
Maximum: Theta, poorly maintained or demonstrated
Amplitude: Medium
Anterior-posterior gradient unremarkable
Sleep
Drowsiness demonstrated by attenuation of the background rhythm
ECG
Normal sinus rhythm
ABNORMAL EEG Activity
As the record opened, there was continuous 2 to 3/s spike and slow-wave activity with mildly variable morphology, generalized. By page 187, the frequency of the spike and wave discharges was decreased with intervening mildly slow theta activity
lasting up to 3 seconds before the return of spike and waves.
[2024-05-28] MEDS: COUMADIN 6 MG PO (17:36)
[2024-05-28] MEDS: KEPPRA 1750 MG IV (19:57)
[2024-05-28] MEDS: NON-FORMULARY ITEM 200 MG PO (20:03)
[2024-05-29] VITALS (7 sets, daily range): BP systolic 121–146; BP diastolic 57–68; PULSE 58; O2SAT 97
[2024-05-29 03:36] LABS: Urine Albumin Negative (Neg - Trace); Urine Bilirubin Negative (Negative); Urine Character Slightly Cloudy (Clear); Urine Color Yellow; Urine Glucose Negative (Negative); Urine Ketone Negative (Negative); Urine Leukocyte 2+ (Negative); Urine Nitrite Negative (Negative); Urine Occult Blood Negative (Negative); Urine Urobilinogen Negative (Neg - 1+)
[2024-05-29 05:04] LABS: Urine Mucus Many; Urine Squamous Cell >30 /LPF (Few)
[2024-05-29 05:05] LABS: Urine Bacteria Many (Negative); Urine Red Blood Cell 0-2 /HPF (0-2); Urine White Cell >100 /HPF (0-5)
[2024-05-29 07:00] LABS: Hematocrit 27.1 % (39.0-52.0); Hemoglobin 9.6 g/dL (13.0-18.0); Mean Corp Hgb Conc. 35.4 g/dL (33.0-37.0); Mean Corpuscular Hgb 34.5 pg (27.0-31.0); Mean Corpuscular Volume 97.5 fL (80.0-94.0); Mean Platelet Volume 10.4 fL (7.4-10.4); Platelet Count 203 10^3/uL (130-400); Red Blood Cell Count 2.78 10^6/uL (4.70-6.10); Red Cell Dist. Width 11.7 % (11.5-14.5); White Blood Cell Count 4.7 10^3/uL (4.8-10.8)
[2024-05-29 07:22] LABS: Blood Urea Nitrogen 29 mg/dl (9-20); Calcium 9.4 mg/dl (8.4-10.2); Carbon Dioxide 33 mmol/L (22-30); Chloride 95 mmol/L (98-107); Estimated Creatinine Clearance 42 ml/min; Glucose 97 mg/dl (70-99); Sodium 136 mmol/L (135-145); eGFR 50.18
[2024-05-29 07:27] LABS: Potassium 5.1 mmol/L (3.5-5.1)
[2024-05-29] MEDS: MIRALAX 17 GRAMS PO (07:34)
[2024-05-29] MEDS: LASIX 40 MG PO (07:35)
[2024-05-29] MEDS: VITAMIN B-12 1000 MCG PO (07:36)
[2024-05-29] MEDS: PROTONIX 40 MG PO (07:36)
[2024-05-29] MEDS: TEGRETOL XR (EXTENDED RELEASE) 400 MG PO ×2 (07:40→19:57)
[2024-05-29] MEDS: KEPPRA 1750 MG IV ×2 (07:41→19:57)
[2024-05-29] MEDS: LONITEN 10 MG PO ×2 (07:44→19:55)
[2024-05-29 08:40] LABS: INR 2.08; PT 23.6 Sec (11.4-14.6)
[2024-05-29 08:41] LABS: APTT 34.4 Sec (23.4-35.0)
[2024-05-29] MEDS: CATAPRES-TTS-2 0.2 MG TRANSDERM (09:27)
--- NOTE | 2024-05-29 09:43 | W.PN.HOSP.TC ---
Addendum entered and electronically signed by Devin Hills MD 05/29/24 22:52:
Attending Addendum-
I saw and evaluated the patient. I reviewed the resident�s note and agree with findings and plan as documented in the resident�s note. Sub: Per patient he feels great. Seen with present who states he is acting more like himself. Denies neuro
deficits. No further seizure activity reported. Full 12 point ROS reviewed and negative except as documented Exam: Vitals reviewed in chart GEN-NAD heart RRR lungs clear abd soft LE no edema Neuro AAO x 2 sensation intact
# Status Epilepticus
- cont telemetry
- neuro input appreciated
- eeg- 05/28- study suggestive of Status epilepticus, resolved by the end of the study
- MRI 05/29-No acute intracranial abnormality.
- check tegretol levels
- cont increased keppra
- continue home cenobamate, tegretol
- monitor closely
- t/c clobazam as OP
# Ambulatory Dysfunction
- fall risk per PT
- eval for SNF
#Hyperkalemia
- resolved
- repeat BMP in am
# Leukopenia
- medication induced?
- repeat in am
# Carotid Stenosis
- b/u carotid U/S- <50%
# LORIE
- likely prerenal
- t/c hold lasix
- recheck BMP in am
# HTN
- continue clonidine, minoxidil, furosemide
# Paroxysmal AFib
- rate controlled
- ther INR 2-3
- continue Coumadin 6mg daily
- repeat INR in am
# COREY
- cont CPAP
# Dementia
- monitor for acute delirium
# HFmrEF
- not in AE
- 08/23 echo EF 45-50%
- cont lasix
DVT PPX - on Coumadin
Code status - full code
Dispo home vs snf in am
Time spent coordinating care, review of plan of care with resident, personally reviewed records in EMR, med rec, consults, notes, labs, radiology, d/w nursing and � 55 mins
Original Note:
Today's Communication/Plan
-
increase in keppra dose and prn 1mg ativan for expressive aphasia per neurology
Okay medically for d/c, but PT said high risk for fall
Will re-evaluate in am for dc
Assessment / Plan
Assessment / Plan
84-year-old male with past medical history of generalized seizures on multiple antiepileptic medication presented to ED with new onset confusion. Recently diagnosed with focal seizures associated with confusion in August. Started on Cenobamate.
Had 1 episode of confusion since on the medication that resolved within 24 hours. However, on 05/27/2024 confusion ongoing ED worked him up for stroke. Head CT and head and neck CTA no evidence of acute abnormality. EEG showed signs of seizure.
#AMS�as CVA versus focal/partial seizures. No signs of acute infection. Initial workup was negative for stroke. Patient on therapeutic Coumadin.
NIHSS = 1 for dysarthria on admission. Dysarthria resolved.
Admit to telemetry
INR 2.57. Therapeutic. Continue Coumadin 6 mg daily
EEG revealed focal status epilepticus without impairment of consciousness resolved at end of EEG
Patient given 2 doses 1 mg IV Ativan.
Ativan 1mg Q4Hrs PRN needed ordered every 4 hours for seizure
Increase Keppra to 1,750 p.o. twice daily per neurology
continue Tegretol 400 mg twice daily and Xcopri 200 mg once a day
MRI no acute abnormalities
Carbamazepine levels therapeutic range
Neurology okay for discharge with current anti-seizure regimen and 1mg prn ativan for expressive aphasia
PT said unsafe to d/c today for risk of fall -- will re-assess in the am
#Carotid stenosis
carotid US Stenosis <50% within BOTH carotid bulbs and proximal internal carotid arteries
#UTI
Signs of UTI
one dose fosfomycin
#Hypertension
Continue clonidine, minoxidil, furosemide
#Paroxysmal A-fib
Rate controlled at this time
INR at goal 2.08
Continue Coumadin 6 mg daily
# Hyperkalemia
Potassium 5.1
Monitor BMP
#Chronic Anemia
No signs of active bleeding
f/u outpatient
# HFmrEF
not in AE
08/23 echo EF 45-50%
continue lasix
#hx COREY - continue CPAP
#hx of CVA
#hx Lung ca s/p right lobectomy
#hx of anemia
#hx of mild to aortic stenosis
DVT prophylaxis on Coumadin
Status full code
Anticipated Discharge: Within 24 hours
Subjective/Interval History
-
Date of Service: May 29, 2024
Objective Data
-
Labs:
Laboratory Results
05/29/24 05/29/24
06:01 08:17
WBC 4.7 L
Hgb 9.6 L
Hct 27.1 L
Plt Count 203
PT 23.6 H
INR 2.08
APTT 34.4
Sodium 136
Potassium 5.1
Chloride 95 L
Carbon Dioxide 33 H
BUN 29 H
Creatinine 1.4 H
Glucose 97
Calcium 9.4
Vital Signs:
Vital Signs
Temp Pulse Resp BP Pulse Ox
98.2 F 65 18 139/68 95
05/29/24 08:51 05/29/24 08:51 05/29/24 08:51 05/29/24 08:51 05/29/24 08:51
I&O
05/28/24 05/29/24 05/30/24
06:59 06:59 06:59
Intake Total 720 / 720 1920 / 192
Output Total 850 / 850
Balance 720 / 720 1070 / 1070
Review of Systems
-
History Source: Patient
Respiratory: Reports No Symptoms
Cardiac: Reports No Symptoms
Abdomen/GI: Reports No Symptoms
Genitourinary: Reports No Symptoms
Neuro: Reports No Symptoms
Physical Exam
-
General: Well Developed and No Apparent Distress
HEENT: Normocephalic
Respiratory: Clear to Auscultation
Cardiac: Regular Rhythm and S1/S2
GI: Soft and Nontender
Musculoskeletal: No Edema
Neuro: AO x 3 and Central Nerve's Intact; Negative Slurred Speech or Facial Droop
Psych: Calm
[2024-05-29] MEDS: NSS (PRESERVATIVE FREE) 0.5 ML IV (10:14)
[2024-05-29] MEDS: ATIVAN 1 MG IV (10:14)
--- NOTE | 2024-05-29 11:05 | W.PN.NEURO.1 ---
Addendum entered and electronically signed by Loan Caballero MD 05/30/24 09:55:
please disregard 'Date of Service: May 28, 2024'
The patient was seen on 05/29/2024
Original Note:
Today's Communication / Plan
-
.
Subjective/Objective
Subjective Data
Date of Service: May 29, 2024
Date of Service: May 28, 2024
24h events: afebrile. Mr. Olvera reports no complaints.
Prior AED: Dilantin, Depakote, Vimpat
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
PSH: RUL lung resection(2014), melanoma excision, UPPP, BL cataract surgery
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
FH:Brother- cerebral aneurysm
All: Hydralazine
ROS: Positive for expressive aphasia, chronic encephalopathy, negative for headache, change in vision or strength
General: Well developed. In no acute distress.
Cardio: irregular rate and rhythm. Extremities are without cyanosis or edema.
Mental Status: Alert,oriented to self, person, month, year, day, date. Follows complex requests.
Cranial Nerves: Pupils are surgical. EOMs full. VFF to confrontation. No ptosis. No nystagmus. Min L facial weakness. Impaired hearing AU. The palate elevated well. SCMs and traps 5/5. Tongue midline. No dysarthria.
Motor: No PD or leg drift
Coordination: No tremor or dysmetria
Gait: deferred
Assessment and Plan:
I. �Focal status epilepticus, treated.
II. Multifactorial encephalopathy (neurodegenerative, vascular, epileptic), resolved
III. History of meningitis, BL SDH
IV. A-Fib
V. History of melanoma
. 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
VII. Hyperostosis frontalis interna.
-Seizure precaution
-Continue Keppra to 1,750 mg PO BID, Tegretol 400 mg twice daily and Xcopri 200 mg once a day
-Would consider Clobazam as OP
-DVT prophylaxis.
I personally reviewed all radiology and labs along with past medical records pertinent to current medical problems. Total time spent in patient care is 35 minutes.
Thank you for allowing us to participate in the care of this patient. We will continue to follow. Please do not hesitate to contact us with any questions or concerns.
Objective Data
Vital Signs
Temp Pulse Resp BP Pulse Ox
36.8 C 65 18 139/68 95
05/29/24 08:51 05/29/24 08:51 05/29/24 08:51 05/29/24 08:51 05/29/24 08:51
Lab Results
05/29/24 06:01
05/29/24 06:01
PT 23.6 Sec (11.4-14.6) H 05/29/24 08:17
INR 2.08 05/29/24 08:17
APTT 34.4 Sec (23.4-35.0) 05/29/24 08:17
Sodium 136 mmol/L (135-145) 05/29/24 06:01
Potassium 5.1 mmol/L (3.5-5.1) 05/29/24 06:01
BUN 29 mg/dl (9-20) H 05/29/24 06:01
Glucose 97 mg/dl (70-99) 05/29/24 06:01
Calcium 9.4 mg/dl (8.4-10.2) 05/29/24 06:01
Vitamin B12 > 1000 pg/ml (239-931) H 05/28/24 07:25
Patient Allergies
hydralazine Allergy (Verified 04/04/24 08:36)
Unknown
pollen extracts Allergy (Verified 11/02/23 08:36)
nasal symptoms
Vital Signs and Labs
-
Vital Signs and Labs:
Vital Signs
Temp Pulse Resp BP Pulse Ox
36.4 C 61 18 127/57 98
05/29/24 11:22 05/29/24 11:22 05/29/24 11:22 05/29/24 11:22 05/29/24 11:22
Lab Results
05/29/24 06:01
05/29/24 06:01
PT 23.6 Sec (11.4-14.6) H 05/29/24 08:17
INR 2.08 05/29/24 08:17
APTT 34.4 Sec (23.4-35.0) 05/29/24 08:17
Sodium 136 mmol/L (135-145) 05/29/24 06:01
Potassium 5.1 mmol/L (3.5-5.1) 05/29/24 06:01
BUN 29 mg/dl (9-20) H 05/29/24 06:01
Glucose 97 mg/dl (70-99) 05/29/24 06:01
Calcium 9.4 mg/dl (8.4-10.2) 05/29/24 06:01
Vitamin B12 > 1000 pg/ml (239-931) H 05/28/24 07:25
Medications
-
Medications:
Generic Name Dose Route Start Last Admin
Trade Name Freq PRN Reason Stop Dose Admin
Acetaminophen 650 mg 05/27/24 20:31
Acetaminophen 650 Mg Rectal Suppository RECTAL 06/24/24 20:30
Q4HPRN PRN
GARZON, mild pain, or temp >100.4F
Acetaminophen 650 mg 05/27/24 20:31
Acetaminophen 325 Mg Tablet PO 06/24/24 20:30
Q4HPRN PRN
GARZON, mild pain, or temp >100.4F
Carbamazepine 400 mg 05/27/24 19:30 05/29/24 07:40
Carbamazepine 100 Mg Extended Release (12 Hour) Tablet PO 06/24/24 19:29 400 mg
BID@ VIRAJ Administration
Clonidine HCl 0.2 mg 05/29/24 08:00 05/29/24 09:27
Clonidine 0.2 Mg Patch TRANSDERM 06/26/24 07:59 0.2 mg
WE VIRAJ Administration
Cyanocobalamin 1,000 mcg 05/28/24 07:30 05/29/24 07:36
Cyanocobalamin 1,000 Mcg Tablet PO 06/25/24 07:29 1,000 mcg
DAILY@729 VIRAJ Administration
Furosemide 40 mg 05/28/24 07:30 05/29/24 07:35
Furosemide 40 Mg Tablet PO 06/25/24 07:29 40 mg
DAILY@729 VIRAJ Administration
Levetiracetam 1,750 mg 05/28/24 20:00 05/29/24 07:41
Levetiracetam (100 Mg/Ml) 500 Mg/5 Ml Vial IV 06/25/24 19:59 1,750 mg
Q12 VIRAJ Administration
Lorazepam 1 mg 05/29/24 10:07 05/29/24 10:14
Lorazepam 2 Mg/Ml Vial IV 06/26/24 07:52 1 mg
Q4HPRN PRN Administration
Convulsions, prior to MRI
Minoxidil 10 mg 05/27/24 19:30 05/29/24 07:44
Minoxidil 10 Mg Tablet PO 06/24/24 19:29 10 mg
BID@ VIRAJ Administration
Cenobamate [Xcopri] 0 mg 05/27/24 19:30 05/28/24 20:03
Take 200 Mg (4 X 50 PO 06/24/24 19:29 200 mg
Mg) Tablet Po Daily@ DAILY@1930 VIRAJ Administration
1930
Pantoprazole Sodium 40 mg 05/28/24 07:30 05/29/24 07:36
Pantoprazole 40 Mg Delayed Release Tablet PO 06/25/24 07:29 40 mg
DAILY@729 VIRAJ Administration
Polyethylene Glycol 17 grams 05/28/24 07:30 05/29/24 07:34
Polyethylene Glycol Powder 17 Grams Packet PO 06/25/24 07:29 17 grams
DAILY@729 VIRAJ Administration
Sodium Chloride 0 flush 05/27/24 22:00 05/28/24 09:53
Sodium Chloride 0.9% (Flush) Syringe IV 06/24/24 21:59 1 flush
PER PROTOCOL VIRAJ Administration
Sodium Chloride 0.5 ml 05/29/24 08:03 05/29/24 10:14
Nss (Pf) 10 Ml Vial For Ativan 1 Mg Dose IV 06/26/24 08:02 0.5 ml
Q4HPRN PRN Administration
IV LORAZEPAM DILUTION
Warfarin Sodium 6 mg 05/28/24 18:00 05/28/24 17:36
Warfarin 3 Mg Tablet PO 06/02/24 17:59 [address] mg
DAILY@1800 [facility] Administration
Home Medications
-
Home Medications
minoxidil 10 mg tablet 10 mg PO BID@ Blood Pressure 01/22/23
clonidine 0.2 mg/24 hr weekly transdermal patch 0.2 mg transdermal WE Blood Pressure 10/17/23
cyanocobalamin (vitamin B-12) 1,000 mcg tablet 1,000 mcg PO DAILY@729 Supplement 10/17/23
furosemide 40 mg tablet 40 mg PO DAILY@729 Fluid Retention/Swelling 10/17/23
levetiracetam 500 mg tablet 1,500 mg PO BID@729,1929 seizures 10/17/23
pantoprazole 40 mg tablet,delayed release 40 mg PO DAILY@729 Gastrointestinal Issue 10/17/23
polyethylene glycol 3350 17 gram oral powder packet (HealthyLax) 17 g PO DAILY@729 Gastrointestinal Issue 10/17/23
warfarin 1 mg tablet 1 mg PO DAILY@1800 Blood Clot Prevention/Tx 10/17/23
carbamazepine 200 mg tablet,extended release,12 hr 400 mg PO BID@0730,1930 Seizures 05/27/24
cenobamate 200 mg tablet (Xcopri) 200 mg PO DAILY@193 Neurological Condition 05/27/24
warfarin 5 mg tablet 5 mg PO DAILY@1800 05/27/24
--- NOTE | 2024-05-29 11:59 | CM ---
Chart reviewed. PT rec. HH, pt prefers [facility]
TT physician resident for VN/PT order and confirm if pt will require ST as well
[facility] referral completed in [facility]. [facility] liaison made aware via TT
Plan: Home w/ [facility]
CM will cont. following for d/c needs
--- NOTE | 2024-05-29 12:47 | VNURNOTE ---
Home Health Liaison met with patient and Anne at bedside to discuss VN nurse/therapy, visits, schedule and homebound status. Patient verbalized that his first choice is to 'get out of the house to outpatient PT.' Liaison explained [facility] recs for HH and that insurance will cover if homebound. Explained pt may be weaker than his norm when he first gets back home. Spouse seemed agreeable to visits. They understand visits would be 2-3 x per week to assess and teach medical
management. VN brochure provided with contact information. Meeting cut short by doctors. Will follow up after spouse and pt talk and decide. VN referral in saved status in [facility] Port.
[2024-05-29] MEDS: MONUROL 3 GM PO (17:18)
[2024-05-29] MEDS: COUMADIN 6 MG PO (17:18)
[2024-05-29] MEDS: NON-FORMULARY ITEM 200 MG PO (19:53)
[2024-05-30 03:00] VITALS: BP 138/64
[2024-05-30 07:35] VITALS: BP 127/59
[2024-05-30 08:16] LABS: INR 2.23
[2024-05-30 08:17] LABS: APTT 35.4 Sec (23.4-35.0)
[2024-05-30 08:24] LABS: Hemoglobin 9.6 g/dL (13.0-18.0); Mean Corp Hgb Conc. 34.3 g/dL (33.0-37.0); Mean Corpuscular Hgb 32.9 pg (27.0-31.0); Mean Corpuscular Volume 95.9 fL (80.0-94.0); Mean Platelet Volume 10.5 fL (7.4-10.4); Platelet Count 223 10^3/uL (130-400); Red Blood Cell Count 2.92 10^6/uL (4.70-6.10); Red Cell Dist. Width 11.9 % (11.5-14.5); White Blood Cell Count 4.3 10^3/uL (4.8-10.8)
[2024-05-30 09:17] LABS: Blood Urea Nitrogen 30 mg/dl (9-20); Calcium 9.3 mg/dl (8.4-10.2); Carbon Dioxide 29 mmol/L (22-30); Chloride 98 mmol/L (98-107); Estimated Creatinine Clearance 45 ml/min; Glucose 95 mg/dl (70-99); Potassium 4.6 mmol/L (3.5-5.1); Sodium 140 mmol/L (135-145); eGFR 54.85
[2024-05-30] MEDS: KEPPRA 1750 MG IV (09:34)
[2024-05-30] MEDS: MIRALAX 17 GRAMS PO (09:34)
[2024-05-30] MEDS: VITAMIN B-12 1000 MCG PO (09:36)
[2024-05-30] MEDS: PROTONIX 40 MG PO (09:36)
[2024-05-30] MEDS: LASIX 40 MG PO (09:36)
[2024-05-30] MEDS: LONITEN 10 MG PO (09:38)
[2024-05-30] MEDS: TEGRETOL XR (EXTENDED RELEASE) 400 MG PO (09:39)
--- NOTE | 2024-05-30 09:50 | W.PN.HOSP.TC ---
Addendum entered and electronically signed by Devin Hills MD 05/31/24 00:17:
Attending Addendum-
I saw and evaluated the patient. I reviewed the resident�s note and agree with findings and plan as documented in the resident�s note. Sub: Per patient he feels great. Seen with present who states he is acting more like himself. wants to go
home no seizure activity Full 12 point ROS reviewed and negative except as documented Exam: Vitals reviewed in chart GEN-NAD heart RRR lungs clear abd soft LE no edema Neuro AAO x 2 sensation intact
# Status Epilepticus
- resolved
- neuro input appreciated
- eeg- 05/28- study suggestive of Status epilepticus, resolved by the end of the study
- MRI 05/29-No acute intracranial abnormality.
- cont increased keppra
- continue home cenobamate, tegretol
- monitor closely
- t/c clobazam as OP
- DC
# Ambulatory Dysfunction
- fall risk per PT
- DC home per PT
#Hyperkalemia
- resolved
# Leukopenia
- medication induced?
- repeat as OP
# Carotid Stenosis
- b/u carotid U/S- <50%
# LORIE
- likely prerenal
- improved
# HTN
- continue clonidine, minoxidil, furosemide
# Paroxysmal AFib
- rate controlled
- ther INR 2-3
- continue Coumadin 6mg daily
- repeat INR in am
# COREY
- cont CPAP
# Dementia
- monitor for acute delirium
# HFmrEF
- not in AE
- 08/23 echo EF 45-50%
- cont lasix
DVT PPX - on Coumadin
Code status - full code
Dispo home with [facility]N
Time spent coordinating care, DC planning, review of DC plan of care with resident, transition of care, review of records, med rec/scripts sent electronically, consults, notes, d/w consultants, nursing, and neuro, and CM� 35 mins
Original Note:
Today's Communication/Plan
-
discharge on increased keppra dose and lorazepam as needed for expressive aphasia seizure activity
Assessment / Plan
Assessment / Plan
84-year-old male with past medical history of generalized seizures on multiple antiepileptic medication presented to ED with new onset confusion. Recently diagnosed with focal seizures associated with confusion in August. Started on Cenobamate.
Had 1 episode of confusion since on the medication that resolved within 24 hours. However, on 05/27/2024 confusion ongoing ED worked him up for stroke. Head CT and head and neck CTA no evidence of acute abnormality. EEG showed signs of seizure.
#AMS�as CVA versus focal/partial seizures. No signs of acute infection. Initial workup was negative for stroke. Patient on therapeutic Coumadin.
NIHSS = 1 for dysarthria on admission. Dysarthria resolved.
Admit to telemetry
INR 2.57. Therapeutic. Continue Coumadin 6 mg daily
EEG revealed focal status epilepticus without impairment of consciousness resolved at end of EEG
Increase Keppra to 1,750 p.o. twice daily per neurology
continue Tegretol 400 mg twice daily and Xcopri 200 mg once a day
MRI no acute abnormalities
Carbamazepine levels therapeutic range
Neurology okay for discharge with current anti-seizure regimen and 1mg prn ativan for expressive aphasia
PT okay to d/c with home health
d/c today
#Carotid stenosis
carotid US Stenosis <50% within BOTH carotid bulbs and proximal internal carotid arteries
No intervention at this time
#Leukopenia
Medication induced?
f/u in op
#LORIE
resolved
#UTI
Signs of UTI
one dose fosfomycin
#Hypertension
Continue clonidine, minoxidil, furosemide
#Paroxysmal A-fib
Rate controlled at this time
INR at goal 2.23
Continue Coumadin 6 mg daily
# Hyperkalemia
Potassium 5.1
Monitor BMP
#Chronic Anemia
No signs of active bleeding
f/u outpatient
# HFmrEF
not in AE
08/23 echo EF 45-50%
continue lasix
#hx COREY - continue CPAP
#hx of CVA
#hx Lung ca s/p right lobectomy
#hx of anemia
#hx of mild to aortic stenosis
DVT prophylaxis on Coumadin
Status full code
Anticipated Discharge: Today
Subjective/Interval History
-
Date of Service: May 30, 2024
Objective Data
-
Labs:
Laboratory Results
05/30/24 05/30/24
06:27 07:47
WBC 4.3 L
Hgb 9.6 L
Hct 28.0 L
Plt Count 223
PT 25.0 H
INR 2.23
APTT 35.4 H
Sodium 140
Potassium 4.6
Chloride 98
Carbon Dioxide 29
BUN 30 H
Creatinine 1.3
Glucose 95
Calcium 9.3
Vital Signs:
Vital Signs
Temp Pulse Resp BP Pulse Ox
98.0 F 56 18 127/59 96
05/30/24 07:35 05/30/24 07:35 05/30/24 07:35 05/30/24 07:35 05/30/24 07:35
I&O
05/29/24 05/30/24 05/31/24
06:59 06:59 06:59
Intake Total 1920 / 1920 720 / 720
Output Total 850 / 850 450 / 450
Balance 1070 / 1070 270 / 270
Review of Systems
-
History Source: Patient
EENT: Reports No Symptoms Reported
Respiratory: Reports No Symptoms
Cardiac: Reports No Symptoms
Abdomen/GI: Reports No Symptoms
Genitourinary: Reports No Symptoms
Neuro: Reports No Symptoms
Physical Exam
-
General: Well Developed
Respiratory: Clear to Auscultation
Cardiac: Regular Rhythm and S1/S2
GI: Soft and Nontender
Musculoskeletal: No Edema
Skin: Warm
Neuro: AO x 3
Psych: Calm
--- NOTE | 2024-05-30 09:56 | W.PN.NEURO.1 ---
Today's Communication / Plan
-
.
Subjective/Objective
Subjective Data
Date of Service: May 30, 2024
24h events: normotensive, afebrile. Mr. Olvera reports no complaints. No recurrent encephalopathy.
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
PSH: RUL lung resection(2014), melanoma excision, UPPP, BL cataract surgery
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
FH:Brother- cerebral aneurysm
All: Hydralazine
ROS: Positive for expressive aphasia, chronic encephalopathy, negative for headache, change in vision or strength
General: Well developed. In no acute distress.
Cardio: irregular rate and rhythm. Extremities are without cyanosis or edema.
Mental Status: Alert,oriented to self, person, month, year, day, date. Follows complex requests.
Cranial Nerves: Pupils are surgical. EOMs full. VFF to confrontation. No ptosis. No nystagmus. Min L facial weakness. Impaired hearing AU. The palate elevated well. SCMs and traps 5/5. Tongue midline. No dysarthria.
Motor: No PD or leg drift
Coordination: No tremor or dysmetria
Gait: deferred
Assessment and Plan:
I. �Focal status epilepticus, treated. Refractory epilepsy.
II. Multifactorial encephalopathy (neurodegenerative, vascular, epileptic), resolved
III. History of meningitis, BL SDH
IV. A-Fib
V. History of melanoma
. 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
VII. Hyperostosis frontalis interna. HFI is usually an incidental finding of no clinical significance. Compression by calvarial thickening may lead to cerebral atrophy and may present with cognitive impairment, neuropsychiatric symptoms, headache,
and�epilepsy.
-Seizure precaution
-Continue Keppra to 1,750 mg PO BID, Tegretol 400 mg twice daily and Xcopri 200 mg once a day
-Lorazepam 0.5-1 mg PRN for aphasia
-Would consider EMU, Clobazam, Valtoco or Nayzilam PRN as OP
-DVT prophylaxis.
-The case was discussed with patient's spouse
-OP neurology follow up in 1-2 weeks
I personally reviewed all radiology and labs along with past medical records pertinent to current medical problems. Total time spent in patient care is 35 minutes.
Thank you for allowing us to participate in the care of this patient. Please do not hesitate to contact us with any questions or concerns.
Objective Data
Vital Signs
Temp Pulse Resp BP Pulse Ox
36.7 C 56 18 127/59 96
05/30/24 07:35 05/30/24 07:35 05/30/24 07:35 05/30/24 07:35 05/30/24 07:35
Lab Results
05/30/24 06:27
05/30/24 06:27
PT 25.0 Sec (11.4-14.6) H 05/30/24 07:47
INR 2.23 05/30/24 07:47
APTT 35.4 Sec (23.4-35.0) H 05/30/24 07:47
Sodium 140 mmol/L (135-145) 05/30/24 06:27
Potassium 4.6 mmol/L (3.5-5.1) 05/30/24 06:27
BUN 30 mg/dl (9-20) H 05/30/24 06:27
Glucose 95 mg/dl (70-99) 05/30/24 06:27
Calcium 9.3 mg/dl (8.4-10.2) 05/30/24 06:27
Vitamin B12 > 1000 pg/ml (239-931) H 05/28/24 07:25
Patient Allergies
hydralazine Allergy (Verified 11/02/23 08:36)
Unknown
pollen extracts Allergy (Verified 11/02/23 08:36)
nasal symptoms
Vital Signs and Labs
-
Vital Signs and Labs:
Vital Signs
Temp Pulse Resp BP Pulse Ox
36.7 C 56 18 127/59 96
05/30/24 07:35 05/30/24 07:35 05/30/24 07:35 05/30/24 07:35 05/30/24 07:35
Lab Results
05/30/24 06:27
05/30/24 06:27
PT 25.0 Sec (11.4-14.6) H 05/30/24 07:47
INR 2.23 05/30/24 07:47
APTT 35.4 Sec (23.4-35.0) H 05/30/24 07:47
Sodium 140 mmol/L (135-145) 05/30/24 06:27
Potassium 4.6 mmol/L (3.5-5.1) 05/30/24 06:27
BUN 30 mg/dl (9-20) H 05/30/24 06:27
Glucose 95 mg/dl (70-99) 05/30/24 06:27
Calcium 9.3 mg/dl (8.4-10.2) 05/30/24 06:27
Vitamin B12 > 1000 pg/ml (239-931) H 05/28/24 07:25
Medications
-
Medications:
Generic Name Dose Route Start Last Admin
Trade Name Freq PRN Reason Stop Dose Admin
Acetaminophen 650 mg 05/27/24 20:31
Acetaminophen 650 Mg Rectal Suppository RECTAL 06/24/24 20:30
Q4HPRN PRN
GARZON, mild pain, or temp >100.4F
Acetaminophen 650 mg 05/27/24 20:31
Acetaminophen 325 Mg Tablet PO 06/24/24 20:30
Q4HPRN PRN
GARZON, mild pain, or temp >100.4F
Carbamazepine 400 mg 05/27/24 19:30 05/30/24 09:39
Carbamazepine 100 Mg Extended Release (12 Hour) Tablet PO 06/24/24 19:29 400 mg
BID@ VIRAJ Administration
Clonidine HCl 0.2 mg 05/29/24 08:00 05/29/24 09:27
Clonidine 0.2 Mg Patch TRANSDERM 06/26/24 07:59 0.2 mg
WE VIRAJ Administration
Cyanocobalamin 1,000 mcg 05/28/24 07:30 05/30/24 09:36
Cyanocobalamin 1,000 Mcg Tablet PO 06/25/24 07:29 1,000 mcg
DAILY@729 VIRAJ Administration
Furosemide 40 mg 05/28/24 07:30 05/30/24 09:36
Furosemide 40 Mg Tablet PO 06/25/24 07:29 40 mg
DAILY@729 VIRAJ Administration
Levetiracetam 1,750 mg 05/28/24 20:00 05/30/24 09:34
Levetiracetam (100 Mg/Ml) 500 Mg/5 Ml Vial IV 06/25/24 19:59 1,750 mg
Q12 VIRAJ Administration
Lorazepam 1 mg 05/29/24 10:07 05/29/24 10:14
Lorazepam 2 Mg/Ml Vial IV 06/26/24 07:52 1 mg
Q4HPRN PRN Administration
Convulsions, prior to MRI
Minoxidil 10 mg 05/27/24 19:30 05/30/24 09:38
Minoxidil 10 Mg Tablet PO 06/24/24 19:29 10 mg
BID@ VIRAJ Administration
Cenobamate [Xcopri] 0 mg 05/27/24 19:30 05/29/24 19:53
Take 200 Mg (4 X 50 PO 06/24/24 19:29 200 mg
Mg) Tablet Po Daily@ DAILY@1929 VIRAJ Administration
1930
Pantoprazole Sodium 40 mg 05/28/24 07:30 05/30/24 09:36
Pantoprazole 40 Mg Delayed Release Tablet PO 06/25/24 07:29 40 mg
DAILY@729 VIRAJ Administration
Polyethylene Glycol 17 grams 05/28/24 07:30 05/30/24 09:34
Polyethylene Glycol Powder 17 Grams Packet PO 06/25/24 07:29 17 grams
DAILY@729 VIRAJ Administration
Sodium Chloride 0 flush 05/27/24 22:00 05/28/24 09:53
Sodium Chloride 0.9% (Flush) Syringe IV 06/24/24 21:59 1 flush
PER PROTOCOL VIRAJ Administration
Sodium Chloride 0.5 ml 05/29/24 08:03 05/29/24 10:14
Nss (Pf) 10 Ml Vial For Ativan 1 Mg Dose IV 06/26/24 08:02 0.5 ml
Q4HPRN PRN Administration
IV LORAZEPAM DILUTION
Warfarin Sodium 6 mg 05/28/24 18:00 05/29/24 17:18
Warfarin 3 Mg Tablet PO 06/02/24 17:59 6 mg
DAILY@1799 VIRAJ Administration
Home Medications
-
Home Medications
minoxidil 10 mg tablet 10 mg PO BID@07,193 Blood Pressure 01/22/23
cyanocobalamin (vitamin B-12) 1,000 mcg tablet 1,000 mcg PO DAILY@729 Supplement 10/17/23
furosemide 40 mg tablet 40 mg PO DAILY@729 Fluid Retention/Swelling 10/17/23
pantoprazole 40 mg tablet,delayed release 40 mg PO DAILY@729 Gastrointestinal Issue 10/17/23
polyethylene glycol 3350 17 gram oral powder packet (HealthyLax) 17 g PO DAILY@729 Gastrointestinal Issue 10/17/23
warfarin 1 mg tablet 1 mg PO DAILY@1800 Blood Clot Prevention/Tx 10/17/23
cenobamate 200 mg tablet (Xcopri) 200 mg PO DAILY@1929 Neurological Condition 05/27/24
carbamazepine 200 mg tablet,extended release,12 hr 400 mg (2 x 200 mg) PO BID@ Seizures 30 days #60 tabs 05/29/24
clonidine 0.2 mg/24 hr weekly transdermal patch 0.2 mg transdermal WE Blood Pressure 30 days #4 ea 05/29/24
levetiracetam 500 mg tablet 1,750 mg (3.5 x 500 mg) PO BID@ seizures 30 days #210 tabs 05/29/24
lorazepam 1 mg tablet 1 mg PO Q4H PRN For expressive aphasia episode #30 tabs 05/29/24
warfarin 5 mg tablet 5 mg PO DAILY@1800 Blood clot prevention/tx #0 tabs 05/29/24
--- NOTE | 2024-05-30 10:08 | CM ---
Per physician resident, pt prefers OP therapy instead of home PT.
Per PT note, pt is not appropriate for OP and it is deemed unsafe
Pt seen bedside w/ spouse to discuss safe d/c plan.
CM discussed per PT, OP is not being recommended and the determination is home PT vs SNF.
Pt and spouse declines SNF as pt has been to SNF twice and did not do well per spouse.
CM discussed home PT being rec as safe as opposed to OP therapy. CM informed if home PT assess and is agreeable to OP, he can revisit then.
Pt agreeable to home PT and understands OP therapy is not rec. or safe at this time
CM updated resident and liaison w/ plan remaining the same
[facility]

Plan: Home w/ [facility]
[2024-05-30 11:32] VITALS: BP 131/60
--- NOTE | 2024-05-30 11:49 | VNURNOTE ---
Follow up on previous note. [facility] Liaison spoke with patient and spouse again at bedside. He is now agreeable to [facility] and home PT. Referral accepted in [facility].
--- NOTE | 2024-05-30 12:03 | W.DCSUMMARY ---
Addendum entered and electronically signed by Devin Hills MD 05/31/24 00:17:
Read, reviewed, and agree. See same day progress note for additional details.
Aj Hills MD
Original Note:
Documented by User: Sophie Evans MD, Resident 05/30/24 17:22
Discharge Summary
Discharge Data
Date of Admission: 05/29/24
Date of Discharge: 05/30/24
-
Pending Results: No
Hospital Course
Primary diagnosis:
Focal status epilepticus, treated
Hypokalemia
Ambulatory dysfunction
Hyperkalemia
Leukopenia
LORIE
Secondary diagnosis:
Hypertension
Paroxysmal A-fib
COREY
Dementia
HFmrEF
Hospital course:
Pleasant 84-year-old male with past medical history of generalized seizures since childhood and recent diagnosis of focal seizures in October associated with confusion presented to ED with changes in mental status on 05/27/2024. said patient had
difficulty speaking and expressing himself. Stroke workup started in ED. Noncontrast CT unremarkable for stroke. Neurology consulted. EEG was done and revealed focal status epilepticus that resolved by the end of the EEG. Lorazepam was given.
Neurology increased patient's Keppra dose and added 1 mg lorazepam as needed for expressive aphasia. MRI was done and revealed no acute changes. Carotid ultrasound was also done revealing less than 50% stenosis bilaterally. Urine analysis also
revealed signs of UTI. Treated with 1 dose of fosfomycin. Patient developed LORIE during his stay creatinine 1.4 which resolved by end of stay. Patient also had a high potassium on admission. Resolved during stay. INR remained therapeutic during
stay. White blood cell count did drop to 4.3. Recommendation to follow-up in outpatient and given script for repeat CBC in one week.
Today, patient is clinically stable for discharge with home PT. recommendation to follow-up with PCP in 1 week. Increase Keppra to 1, 750 twice daily, maintain current carbamazepine and Xcopri dose. Patient also receiving 1 mg lorazepam as needed
for episodes of expressive aphasia. Patient's educated on this. Also given prescription for repeat CBC in 1 week to evaluate white blood cell count.
Discharge Plan
-
Patient Disposition: Home (Routine Discharge)
Discharge Diagnosis/Procedures: Focal status epilepticus, treated
Condition: Good
Diet: As tolerated
Activity: As tolerated
Driving Restrictions: No driving
Bathing Restrictions: None
Other Services: VN, PT and ST
Referrals:
Robin Garcia MD [Family Provider] - in less than 1 week
Additional Discharge Medication Instructions: Repeat CBC in one week to evaluate WBC
Lorazepam 1mg as needed for expressive aphasia
Prescriptions:
New
lorazepam 1 mg tablet
1 mg PO Q4H PRN (Reason: For expressive aphasia episode) Qty: 30 0RF
Continued
minoxidil 10 mg Tablet
10 mg PO BID@30,193
furosemide 40 mg Tablet
40 mg PO DAILY@0730
warfarin 1 mg Tablet
1 mg PO DAILY@1800
Rx Instructions:
take with 5mg for total of 6mg
polyethylene glycol 3350 [HealthyLax] 17 gram powder in packet
17 g PO DAILY@0730
cyanocobalamin (vitamin B-12) 1,000 mcg tablet
1,000 mcg PO DAILY@0730
pantoprazole 40 mg tablet,delayed release (DR/EC)
40 mg PO DAILY@0730
Xcopri 200 mg Tablet
200 mg PO DAILY@1930
clonidine 0.2 mg/24 hr patch weekly
0.2 mg transdermal WE 30 Days Qty: 4 0RF
Patient Comments:
11/02/2023, pt. currently wearing a patch on his right arm; per spouse, patch was changed yesterday (11/01/2023).
warfarin 5 mg Tablet
5 mg PO DAILY@1800 Qty: 0 0RF
Rx Instructions:
take with 1mg for total of 6mg
Changed
levetiracetam 500 mg tablet
1,750 mg PO BID@ 30 Days Qty: 210 0RF
carbamazepine 200 mg tablet extended release 12 hr
400 mg PO BID@ 30 Days Qty: 60 0RF
Discharge Orders:
Discharge Patient (As Directed); Ordered 05/29/24
Ordered By: Sophie Evans
Discharge Date and Time
Discharge Date/Time: 05/30/24 15:27
Print Language: CYMRO

Documented by User: Devin Hills MD 05/31/24 00:13
Discharge Summary
Discharge Data
Date of Admission: 05/29/24
Date of Discharge: 05/31/24
Discharge Plan
-
Patient Disposition: Home (Routine Discharge)
Discharge Diagnosis/Procedures: Focal status epilepticus, treated
Condition: Good
Diet: As tolerated
Activity: As tolerated
Driving Restrictions: No driving
Bathing Restrictions: None
Other Services: VN, PT and ST
Referrals:
Robin Garcia MD [Family Provider] - in less than 1 week
Additional Discharge Medication Instructions: Repeat CBC in one week to evaluate WBC
Lorazepam 1mg as needed for expressive aphasia
Prescriptions:
New
lorazepam 1 mg tablet
1 mg PO Q4H PRN (Reason: For expressive aphasia episode) Qty: 30 0RF
Continued
minoxidil 10 mg Tablet
10 mg PO BID@
furosemide 40 mg Tablet
40 mg PO DAILY@729
warfarin 1 mg Tablet
1 mg PO DAILY@1800
Rx Instructions:
take with 5mg for total of 6mg
polyethylene glycol 3350 [HealthyLax] 17 gram powder in packet
17 g PO DAILY@729
cyanocobalamin (vitamin B-12) 1,000 mcg tablet
1,000 mcg PO DAILY@729
pantoprazole 40 mg tablet,delayed release (DR/EC)
40 mg PO DAILY@729
Xcopri 200 mg Tablet
200 mg PO DAILY@1929
clonidine 0.2 mg/24 hr patch weekly
0.2 mg transdermal WE 30 Days Qty: 4 0RF
Patient Comments:
11/02/2023, pt. currently wearing a patch on his right arm; per spouse, patch was changed yesterday (11/01/2023).
warfarin 5 mg Tablet
5 mg PO DAILY@1800 Qty: 0 0RF
Rx Instructions:
take with 1mg for total of 6mg
Changed
levetiracetam 500 mg tablet
1,750 mg PO BID@ 30 Days Qty: 210 0RF
carbamazepine 200 mg tablet extended release 12 hr
400 mg PO BID@ 30 Days Qty: 60 0RF
Discharge Orders:
Discharge Patient (As Directed); Ordered 05/29/24
Ordered By: Sophie Evans
Discharge Date and Time
Discharge Date/Time: 05/30/24 15:27
Print Language: CYMRO
[2024-05-30 14:51] VITALS: BP 136/68
== END 2024-05-30 15:27 | disposition home health service (06) | DRG 101 ==
LOC: 4 WEST ACU 09:22
PROVIDERS: Registered Nurse; ADMITTING PHYSICIAN Internal Medicine; ATTENDING PHYSICIAN Family Medicine; CONSULT PHYSICIAN Psychiatry & Neurology Neurology; EMERGENCY PHYSICIAN Student in an Organized Health Care Education/Training Program; FAMILY PHYSICIAN Internal Medicine
DX: G40.101 Localization-related (focal) (partial) symptomatic epilepsy and epileptic syndromes with simple partial seizures, not intractable, with status epilepticus (principal); I13.0 Hypertensive heart and chronic kidney disease with heart failure and stage 1 through stage 4 chronic kidney disease, or unspecified chronic kidney disease; I50.22 Chronic systolic (congestive) heart failure; N17.9 Acute kidney failure, unspecified; N39.0 Urinary tract infection, site not specified; R47.01 Aphasia; G93.49 Other encephalopathy; D72.819 Decreased white blood cell count, unspecified; E78.00 Pure hypercholesterolemia, unspecified; E87.6 Hypokalemia; F03.90 Unspecified dementia, unspecified severity, without behavioral disturbance, psychotic disturbance, mood disturbance, and anxiety; G47.33 Obstructive sleep apnea (adult) (pediatric); I48.0 Paroxysmal atrial fibrillation; I65.23 Occlusion and stenosis of bilateral carotid arteries; J45.909 Unspecified asthma, uncomplicated; N18.9 Chronic kidney disease, unspecified; N40.0 Benign prostatic hyperplasia without lower urinary tract symptoms; D63.1 Anemia in chronic kidney disease; Z86.73 Personal history of transient ischemic attack (TIA), and cerebral infarction without residual deficits; Z86.61 Personal history of infections of the central nervous system; Z85.820 Personal history of malignant melanoma of skin; Z85.118 Personal history of other malignant neoplasm of bronchus and lung; Z79.899 Other long term (current) drug therapy; Z79.01 Long term (current) use of anticoagulants; Z11.52 Encounter for screening for COVID-19
CPT/HCPCS: 70450; 70496; 70498; 70551; 80048; 80053; 80156; 81003; 81015; 82607; 82962; 83735; 84443; 84484; 85025; 85027; 85610; 85730; 87077; 87086; 87186; 87811; 92523; 92610; 93005; 93880; 95816; 97162; 97530; 99291; Q9967

== ENCOUNTER → 2024-06-05 08:01 | Outpatient (REF) | payer MEDICARE, OTHER, SELFPAY ==
[2024-06-05 09:34] LABS: % Basophils 1.3 % (0-2); % Eosinophils 3.8 % (0-6); % Immature Granulocytes 0.2 % (0-0.5); % Lymphocytes 27.4 % (20.5-51.1); % Monocytes 9.4 % (1.7-9.3); % Neutrophils 57.9 % (42.2-75.2); Absolute Basophils 0.1 10^3/uL (0-0.2); Absolute Eosinophils 0.2 10^3/uL (0-0.7); Absolute Lymphocytes 1.2 10^3/uL (1.2-3.4); Absolute Monocytes 0.4 10^3/uL (0.1-0.6); Absolute Neutrophils 2.6 10^3/uL (1.4-6.5); Hematocrit 32.3 % (39.0-52.0); Hemoglobin 11.2 g/dL (13.0-18.0); Mean Corp Hgb Conc. 34.7 g/dL (33.0-37.0); Mean Corpuscular Hgb 33.3 pg (27.0-31.0); Mean Corpuscular Volume 96.1 fL (80.0-94.0); Mean Platelet Volume 10.4 fL (7.4-10.4); Nucleated Red Blood Cells % 0 % (-); Platelet Count 224 10^3/uL (130-400); Red Blood Cell Count 3.36 10^6/uL (4.70-6.10); Red Cell Dist. Width 11.9 % (11.5-14.5); White Blood Cell Count 4.5 10^3/uL (4.8-10.8)
[2024-06-05 11:46] LABS: ALT (SGPT) 39 U/L (0-50); AST (SGOT) 34 U/L (17-59); Albumin 4.5 g/dl (3.5-5.0); Alkaline Phosphatase 83 U/L (38-126); Blood Urea Nitrogen 30 mg/dl (9-20); Calcium 9.7 mg/dl (8.4-10.2); Carbon Dioxide 30 mmol/L (22-30); Chloride 98 mmol/L (98-107); Glucose 108 mg/dl (70-99); Potassium 4.9 mmol/L (3.5-5.1); Sodium 143 mmol/L (135-145); Total Bilirubin 0.3 mg/dl (0.2-1.3); Total Protein 7.7 g/dl (6.3-8.2); eGFR 54.85
== END ==
LOC: REG 08:01
PROVIDERS: ATTENDING PHYSICIAN Family Medicine; FAMILY PHYSICIAN Internal Medicine
DX: R41.82 Altered mental status, unspecified (principal)
CPT/HCPCS: 36415; 80053; 85025

== ENCOUNTER 2024-06-28 09:36 | Outpatient (RCR) | payer MEDICARE, OTHER, SELFPAY | END 2024-06-28 23:59 | disposition home or self-care (01) | LOC: RPT 09:36 | PROVIDERS: ATTENDING PHYSICIAN Internal Medicine | DX: R26.89 Other abnormalities of gait and mobility (principal); Z73.6 Limitation of activities due to disability; R26.2 Difficulty in walking, not elsewhere classified | CPT/HCPCS: 97110; 97162; 97530; 97535 ==

== ENCOUNTER → 2024-07-04 08:26 | Outpatient (REF) | payer MEDICARE, OTHER, SELFPAY ==
[2024-07-04 09:25] LABS: INR 2.95; PT 31.1 Sec (11.4-14.6)
== END ==
LOC: REG 08:26
PROVIDERS: ATTENDING PHYSICIAN Internal Medicine Cardiovascular Disease; FAMILY PHYSICIAN Internal Medicine
DX: I48.0 Paroxysmal atrial fibrillation (principal); Z79.01 Long term (current) use of anticoagulants
CPT/HCPCS: 36415; 85610

== ENCOUNTER 2024-07-11 15:41 | Outpatient (RCR) | payer MEDICARE, OTHER, SELFPAY | END 2024-07-22 11:52 | disposition home or self-care (01) | LOC: RPT 15:41 | PROVIDERS: ATTENDING PHYSICIAN Internal Medicine | DX: R26.89 Other abnormalities of gait and mobility (principal); Z73.6 Limitation of activities due to disability; R26.2 Difficulty in walking, not elsewhere classified | CPT/HCPCS: 97110; 97535 ==

== ENCOUNTER 2024-07-15 11:45 | Inpatient (IN) | payer MEDICARE, OTHER, SELFPAY ==
[2024-07-15] VITALS (12 sets, daily range): BP systolic 99–183; BP diastolic 42–139; BMI 22.5
[2024-07-15 07:59] LABS: % Basophils 0.3 % (0-2); % Immature Granulocytes 0.8 % (0-0.5); % Lymphocytes 5.6 % (20.5-51.1); % Neutrophils 84.3 % (42.2-75.2); Absolute Immature Granulocytes 0.1 10^3/uL (0-0.05); Absolute Lymphocytes 0.9 10^3/uL (1.2-3.4); Absolute Monocytes 1.4 10^3/uL (0.1-0.6); Absolute Neutrophils 13.1 10^3/uL (1.4-6.5); Hematocrit 33.6 % (39.0-52.0); Hemoglobin 11.5 g/dL (13.0-18.0); Mean Corp Hgb Conc. 34.2 g/dL (33.0-37.0); Mean Corpuscular Volume 99.4 fL (80.0-94.0); Mean Platelet Volume 10.2 fL (7.4-10.4); Nucleated Red Blood Cells % 0 % (-); Platelet Count 198 10^3/uL (130-400); Red Blood Cell Count 3.38 10^6/uL (4.70-6.10); White Blood Cell Count 15.5 10^3/uL (4.8-10.8)
[2024-07-15 08:36] LABS: Urine Albumin Trace (Neg - Trace); Urine Bilirubin Negative (Negative); Urine Character Clear (Clear); Urine Color Yellow; Urine Glucose Negative (Negative); Urine Ketone Negative (Negative); Urine Leukocyte 2+ (Negative); Urine Nitrite Negative (Negative); Urine Occult Blood 1+ (Negative); Urine Specific Gravity 1.015 (<1.030); Urine Urobilinogen Negative (Neg - 1+)
--- NOTE | 2024-07-15 08:44 | ED.GENMED ---
History of Present Illness
General
Chief Complaint: Weakness
Source: patient and spouse
Exam Limitations: none
Time Seen by Provider: 07/15/24 08:11
Nursing documentation reviewed up to this point in time: agreed with
History of Present Illness
History of Present Illness:
84-year-old male with past medical history of seizures stroke presenting to the emergency department today with concerns of increased weakness decreased energy difficulty with ambulation secondary to weakness starting yesterday. Also noticed some
malodorous urine today. Febrile on arrival here. Denies chest pain shortness of breath or any specific symptoms otherwise. No focal weakness.
Past History
Past History
ED Past Medical History: Asthma, Cancer (Lung), CHF, CVA, HTN, Hypercholesterolemia, Seizures and Other (COREY, C-pap at night, Meningitis, )
ED Past Surgical History: Tonsilectomy and Other (right lobectomy, Uvulectomy)
Social History
Tobacco: Non-smoker
Alcohol: None
Drug: None
Personal:
Living: with family
Employment: Retired
Family History
Family History: Other (reviewed and Noncontributory)
Review of Systems
Review of Systems
Allergies reviewed?: Yes
All Other Systems: ROS reviewed and negative except as documented in HPI and ROS
Phy Exam
Physical Exam
Physical Exam:
GENERAL: Alert , in no apparent distress
EYE: pupils equal and reactive
NECK: Supple, no significant adenopathy.
ENT: o/p clr, mmm.
CARDIAC: Regular rate and rhythm .
LUNGS: Clear breath sounds bilaterally, no acute respiratory distress, no wheezes/rales/rhonchi
ABDOMEN: Soft, without focal tenderness, no r/g, no cvat
NEUROLOGICAL: Alert and oriented, no focal neuro deficits
SKIN: Warm and dry, skin intact.
MUSCULOSKELETAL: No edema, well perfused.
PSYCH: Normal and appropriate interaction.
Course
Orders/Labs/Results
Orders:
Orders
07/15/24 07:33
Electrocardiogram (*1) Urgent
Reason for Study: Fatigue / Weakness
EKG- Treatment ONCE
07/15/24 07:48
Complete Blood Count/With Diff Urgent
Lactic Acid Urgent
Urinalysis Reflex To Culture Urgent
Date Specimen was Collected: 07/15/24
Time Specimen was Collected: 07:33
Urine Microscopic Reflex Cult Urgent
Urine Culture Urgent
MISHA Source: U
Specimen Description:
Date Specimen was Collected: 07/15/24
Time Specimen was Collected: 07:33
07/15/24 08:05
Blood Culture Urgent
MISHA Source: Blood/Venous
Specimen Description:
07/15/24 08:35
Basic Metabolic Panel Urgent
COVID-19 Antigen Urgent
Source: Nasal Swab
Influenza A+B Rapid Molecular Urgent
MISHA Source: Nasal Swab
Specimen Description:
07/15/24 08:36
Acetaminophen [Tylenol] 1,000 mg PO NOW STA
07/15/24 08:53
Levetiracetam [Keppra] 1,750 mg PO NOW STA
07/15/24 08:54
Carbamazepine [Tegretol] 400 mg PO ONCE ONE
07/15/24 09:09
CefTRIAXone [Rocephin] 2,000 mg IV NOW STA
07/15/24 09:23
PT/INR [Prothrombin Time] Urgent
07/15/24 09:24
Sterile Water [Sterile Water For Injection] 20 ml .ROUTE .STK-MED
07/15/24 09:28
NSS 500mL Bolus over 30 minutes 0.9% Sodium Chloride 500 ml [Nss] 500 ml IV BOLUS
Abnormal Lab Results
07/15/24 07/15/24
07:48 08:35
WBC 15.5 H 10^3/uL
(4.8-10.8)
RBC 3.38 L 10^6/uL
(4.70-6.10)
Hgb 11.5 L g/dL
(13.0-18.0)
Hct 33.6 L %
(39.0-52.0)
MCV 99.4 H fL
(80.0-94.0)
MCH 34.0 H pg
(27.0-31.0)
Abs Immat Gran (auto) 0.1 H 10^3/uL
(0-0.05)
Absolute Neuts (auto) 13.1 H 10^3/uL
(1.4-6.5)
Absolute Lymphs (auto) 0.9 L 10^3/uL
(1.2-3.4)
Absolute Monos (auto) 1.4 H 10^3/uL
(0.1-0.6)
Immature Gran % 0.8 H %
(0-0.5)
Neutrophils % 84.3 H %
(42.2-75.2)
Lymphocytes % 5.6 L %
(20.5-51.1)
Carbon Dioxide 31 H mmol/L
(22-30)
BUN 36 H mg/dl
(9-20)
Glucose 134 H mg/dl
(70-99)
Ur Occult Blood Reflex 1+ A
(Negative)
Leukocyte Esterase Rfl 2+ A
(Negative)
Urine WBC (Reflex) 40-50 A /HPF
(0-5)
Urine Bacteria (Reflex) Many A
(Negative)
07/15/24 07:48
07/15/24 08:35
Vital Signs
Initial and Last Documented VS:
Initial Vital Signs
Temp Pulse Resp BP Pulse Ox
101.4 F H 78 16 128/92 97
07/15/24 07:33 07/15/24 07:33 12/16/24 07:33 07/15/24 07:33 07/15/24 07:33
Last Documented Vital Signs
Temp Pulse Resp BP Pulse Ox
101.4 F H 78 13 128/92 95
07/15/24 07:33 07/15/24 07:45 07/15/24 07:45 07/15/24 07:33 07/15/24 07:45
MDM/Problems Addressed
MDM/Problems Addressed:
84-year-old male presenting to the emergency department today with concerns of generalized weakness fatigue malodorous urine starting yesterday worsening today. Difficulty ambulating today which prompted him to come in via ambulance. Here white
count elevated, febrile was given Tylenol for the fever. Urinalysis consistent with likely UTI. Plan for IV antibiotics and admission for further monitoring and treatment
*Critical Care Note
Total Time (30-74mins, 75-104mins- exclusive of procedures): Not Applicable
ED Attending Note
-
Portions of this chart may have been created with voice recognition software.� Occasional wrong word or��sound alike� substitutions may have occurred due to the inherent limitations of voice recognition software.
Discharge Plan
Departure
Patient Disposition: Admit
Date of Disposition: 07/15/24
Time of Disposition: 09:29
Admit to: Med/Surg
Admit to doctor: Do
Presentation/result/management discussed w/ accepting MD/DO: Hospitalist
Patient with high blood pressure during this ER visit?: No
Condition: Good
Covid-19: Not Applicable
Discharge Problem:
Acute UTI
Prescriptions:
No Action
minoxidil 10 mg Tablet
10 mg PO BID@30,1930
furosemide 40 mg Tablet
40 mg PO DAILY@0730
warfarin 1 mg Tablet
1 mg PO DAILY@1800
Rx Instructions:
take with 5mg for total of 6mg
polyethylene glycol 3350 [HealthyLax] 17 gram powder in packet
17 g PO DAILY@729
cyanocobalamin (vitamin B-12) 1,000 mcg tablet
1,000 mcg PO DAILY@729
pantoprazole 40 mg tablet,delayed release (DR/EC)
40 mg PO DAILY@729
Xcopri 200 mg Tablet
200 mg PO DAILY@1929
clonidine 0.2 mg/24 hr patch weekly
0.2 mg transdermal WE 30 Days Qty: 4 0RF
Patient Comments:
11/02/2023, pt. currently wearing a patch on his right arm; per spouse, patch was changed yesterday (11/01/2023).
levetiracetam 500 mg tablet
1,750 mg PO BID@729,1929 30 Days Qty: 210 0RF
carbamazepine 200 mg tablet extended release 12 hr
400 mg PO BID@ 30 Days Qty: 60 0RF
lorazepam 1 mg tablet
1 mg PO Q4H PRN (Reason: For expressive aphasia episode) Qty: 30 0RF
warfarin 5 mg Tablet
5 mg PO DAILY@1800 Qty: 0 0RF
Rx Instructions:
take with 1mg for total of 6mg
amlodipine 2.5 mg Tablet
2.5 mg PO DAILY
Referrals:
Robin Garcia MD [Family Provider] -
Interventions
Interventions:
*Risk Screen - Suicide Last Done: 07/15/24 07:53
*Neglect/Abuse Screening Last Done: 07/15/24 07:52
ED- Fall Risk Assessment Last Done: 07/15/24 07:54
*ED COVID-19 Vaccine History Last Done: 07/15/24 07:34
ED- Cardiac Assessment Last Done: 07/15/24 07:35
ED-Male Genitourinary Assessment Last Done: 07/15/24 07:39
ED- Neurological Assessment Last Done: 07/15/24 07:35
ED- Pulmonary Assessment Last Done: 07/15/24 07:35
Discharge Date and Time
Print Language: RUSSIAN
[2024-07-15] MEDS: TYLENOL 1000 MG PO (08:50)
[2024-07-15 08:57] LABS: Urine Red Blood Cell 0-2 /HPF (0-2)
[2024-07-15 08:58] LABS: Urine Bacteria Many (Negative); Urine White Cell 40-50 /HPF (0-5)
[2024-07-15 09:02] LABS: COVID-19 Antigen Negative (Negative)
[2024-07-15] MEDS: KEPPRA 1750 MG PO ×2 (09:09→20:27)
[2024-07-15] MEDS: TEGRETOL 400 MG PO (09:09)
[2024-07-15 09:26] LABS: Blood Urea Nitrogen 36 mg/dl (9-20); Calcium 9.3 mg/dl (8.4-10.2); Carbon Dioxide 31 mmol/L (22-30); Chloride 99 mmol/L (98-107); Glucose 134 mg/dl (70-99); Sodium 140 mmol/L (135-145); eGFR 54.85
[2024-07-15] MEDS: ROCEPHIN 2000 MG IV (09:30)
[2024-07-15] MEDS: NSS 500 IV (09:31)
[2024-07-15 09:40] LABS: INR 3.91
--- NOTE | 2024-07-15 09:55 | HPS.HSE ---
Family Physician
-
Family Physician: Robin Garcia
Chief Complaint
-
Weakness
History of Present Illness
84-year-old male presents with generalized weakness difficulty ambulation also noted abnormality in his urine. Patient was noted to have fever in the ER.
Medical History
Past Medical History
Past Medical History: Reports Other
Additional Past Medical History:
History of meningitis, seizures, stroke, history of lung cancer, sleep apnea - Lost weight not on cpap any more, hypertension, hyperlipidemia, enlarged prostate, arthritis, hearing impairment, Dementia, was on Hospice for a year
Past Surgical History: Reports Other
Additional Past Surgical History:
Tonsillectomy, uvulectomy, bronchoscopy, lobectomy right lung
Social History
Tobacco: Non-smoker
Alcohol: None
Personal:
Living: With Family
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
Family History
Family History: CAD (brother , ) and Cancer (Sister - brain cancer)
Allergies / Home Medications
Allergies reflects when Allergies were last updated in [employer]
Home Medications with original date entered in [employer]
Allergy/Medication List:
Allergies
Allergy/AdvReac Type Severity Reaction Status Date / Time
hydralazine Allergy Unknown Verified 07/15/24 08:02
pollen extracts Allergy nasal Verified 07/15/24 08:02
symptoms
Home Medications
minoxidil 10 mg tablet 10 mg PO BID@0730,1930 Blood Pressure 01/22/23
cyanocobalamin (vitamin B-12) 1,000 mcg tablet 1,000 mcg PO DAILY@0730 Supplement 10/17/23
furosemide 40 mg tablet 40 mg PO DAILY@0730 Fluid Retention/Swelling 10/17/23
pantoprazole 40 mg tablet,delayed release 40 mg PO DAILY@07 Gastrointestinal Issue 10/17/23
polyethylene glycol 3350 17 gram oral powder packet (HealthyLax) 17 g PO DAILY@729 Gastrointestinal Issue 10/17/23
warfarin 1 mg tablet 1 mg PO DAILY@1800 Blood Clot Prevention/Tx 10/17/23
cenobamate 200 mg tablet (Xcopri) 200 mg PO DAILY@1930 Neurological Condition 05/27/24
clonidine 0.2 mg/24 hr weekly transdermal patch 0.2 mg transdermal WE Blood Pressure 30 days #4 ea 05/29/24
levetiracetam 500 mg tablet 1,750 mg (3.5 x 500 mg) PO BID@0730,1930 seizures 30 days #210 tabs 05/29/24
lorazepam 1 mg tablet 1 mg PO Q4H PRN For expressive aphasia episode #30 tabs 05/29/24
warfarin 5 mg tablet 5 mg PO DAILY@1800 Blood clot prevention/tx #0 tabs 05/29/24
amlodipine 2.5 mg tablet 2.5 mg PO DAILY 07/15/24
carbamazepine 200 mg tablet,extended release,12 hr 400 mg PO BID Seizures 07/15/24
Review of Systems
-
A 12 point ROS was completed and negative except as noted: Yes
Respiratory: Denies Cough
Cardiac: Denies Chest Pain
Neurological: Denies Headache
Physical Exam
Vital Signs
Vital Signs
Temp Pulse Resp BP Pulse Ox
101.4 F H 78 13 128/92 95
07/15/24 07:33 07/15/24 07:45 07/15/24 07:45 07/15/24 07:33 07/15/24 07:45
Physical Exam
General: Comfortable and Other (Drowsy arousable)
Respiratory: Clear
Cardiac: S1/S2 and Regular Rhythm
GI: Soft and Non Tender
Neuro: No Motor Deficits, Cranial Nerves Intact and Other (Drowsy arousable)
Laboratory Results
-
07/15/24 07:48
07/15/24 08:35
Laboratory Results
PT 38.0 Sec (11.4-14.6) H 07/15/24 09:23
INR 3.91 07/15/24 09:23
Lactic Acid 2.0 mmol/L (0.7-2.0) 07/15/24 07:48
Total Bilirubin Cancelled 07/15/24 08:35
AST Cancelled 07/15/24 08:35
ALT Cancelled 07/15/24 08:35
Alkaline Phosphatase Cancelled 07/15/24 08:35
Data Reviewed
-
Medical Tests (Nuc Med, Echo, EKG etc): Image Personally Visualized and interpreted (Sinus rhythm no ischemic changes)
Impression/Plan
-
IMPRESSION/PLAN:
# TME-likely secondary to fever
Patient's stated that he was behaving like this when he had seizures in the past-check EEG
Because of coagulopathy I will also get a head CT.
If patient is awake and alert can be fed if not hold off on a diet
# Fever
Likely secondary to UTI
COVID influenza screen negative
Check blood cultures and urine cultures
Continue antibiotics-ceftriaxone
# Coumadin induced coagulopathy-hold Coumadin tonight. Daily INR
# Paroxysmal atrial fibrillation-continue
# Chronic HFrEF -hold Lasix in the setting of infection
08/25/20236547-[id number] LV size. EF 45 to 50%. Reduced RV systolic function. Severely dilated LA. Moderately dilated RA. Mild MR. Mild to moderate AAS. Severe TR. Pulmonary artery pressure 60 to 65 mmHg.
# Hypertension-continue clonidine patch, hold minoxidil and Norvasc
# Seizures-continue Xcopri, Keppra, carbamazepine. Morning dose was given in the ER
# GERD-continue PPI
# Chronic anemia-NOS
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
# Ambulatory dysfunction
# Dementia
# Sleep apnea- states that patient lost weight and had seen Dr. Pace. He does not need to use CPAP anymore.
# DVT prophylaxis-elevated INR
# CODE STATUS-DNR per discussion with
Discussed with patient's updated the plan
[2024-07-15] MEDS: PROTONIX IV 40 MG IV (11:39)
[2024-07-15] MEDS: NSS (PRESERVATIVE FREE) 10 ML IV (11:39)
[2024-07-15] MEDS: ZOFRAN 4 MG IV (14:28)
[2024-07-15] MEDS: NSS 1000 IV (15:25)
--- NOTE | 2024-07-15 18:30 | CM ---
Addendum entered by Coral Mcguire 07/15/24 18:42:
Patient is currently going to outpatient PT at [facility].
Original Note:
Chart reviewed. Patient's also at bedside and very versed in patient's medical history. She shared that patient is currently confused but is usually independent with his walker. He owns a hospital bed, chair lift, shower chair, 2 walkers, and
2 wheelchairs. also shared there are grab bars everywhere in the home. She shared patient is usually 'very self-sufficient'; he makes his own breakfast. Patient is here for a UTI; knows this is what led to his confusion. They live in a
condominium, [facility]. Active PCP and pharmacy. No +SDOHs.
Patient has been on hospice and has used home health care in the past as well.
also shared he had a stay from May 28-2023.
ANTICIPATED DISCHARGE PLAN: Home with , with or without home health agency services vs. short term rehab, pending PT/OT's recommendations. Also, when medically cleared.
--- NOTE | 2024-07-15 18:40 | EEGC.RPT ---
Continuous EEG Report
Report
TECHNICAL REMARKS:��This is a technically satisfactory eighteen channel record employing 21 disc electrodes applied according to a measured international 10-20 electrode placement system.��There were no significant technical difficulties.��The study
was done on a [employer] System.
STUDY DURATION: 27 minutes and 37 seconds.
CLINICAL HISTORY: This is an 84-year-old man with epilepsy, history of history of meningitis, BL SDH with encephalopathy. Study was requested to look for epileptiform abnormalities.
MEDICATIONS: Ceftriaxone, Keppra, carbamazepine, Xcopri
REPORT: �At the onset of the EEG, the patient is in altered mental status. The background activity consists of 6-7 Hz, impersistent, posteriorly dominant, moderate amplitude, symmetric, and rhythmic activity. Continuous generalized, 2-3 Hz, 30-50 uV
polymorphic delta activity with infrequent right frontal/central sharps are seen.�Intermittent generalized attenuation lasting 1-1.5 seconds is present. Stepwise intermittent photic stimulation did not induce additional abnormalities.
Hyperventilation was not performed.
�
IMPRESSION: �This is an abnormal EEG due to a moderate to severe generalized slowing with right frontal/central sharps indicative of propensity to develop seizures the above area and encephalopathy, nonspecific on terms of etiology. No
electrographic seizures were seen.
--- NOTE | 2024-07-15 19:31 | PTCARENOTE ---
Received patient from ED t 1450. AAOx2. Pt forgetful and drowsy. Pt's at bedside. Pt oriented to room. Made patient comfortable. Cont to assess patient status.
[2024-07-15] MEDS: NON-FORMULARY ITEM 200 MG PO (20:24)
[2024-07-15] MEDS: TEGRETOL XR (EXTENDED RELEASE) 400 MG PO (20:26)
[2024-07-15] MEDS: TYLENOL 650 MG PO (22:56)
[2024-07-16 03:09] VITALS: BP 146/64
[2024-07-16 07:25] VITALS: BP 124/63
[2024-07-16 07:56] LABS: INR 4.86; PT 44.7 Sec (11.4-14.6)
[2024-07-16 08:00] LABS: Hematocrit 30.3 % (39.0-52.0); Mean Corpuscular Hgb 33.6 pg (27.0-31.0); Mean Corpuscular Volume 101.7 fL (80.0-94.0); Mean Platelet Volume 10.7 fL (7.4-10.4); Platelet Count 178 10^3/uL (130-400); Red Blood Cell Count 2.98 10^6/uL (4.70-6.10); White Blood Cell Count 16.4 10^3/uL (4.8-10.8)
[2024-07-16 08:23] LABS: Blood Urea Nitrogen 28 mg/dl (9-20); Calcium 8.5 mg/dl (8.4-10.2); Carbon Dioxide 30 mmol/L (22-30); Chloride 103 mmol/L (98-107); Estimated Creatinine Clearance 48 ml/min; Glucose 92 mg/dl (70-99); Magnesium 2.1 mg/dl (1.6-2.3); Sodium 141 mmol/L (135-145); eGFR > 60.00
[2024-07-16] MEDS: PROTONIX 40 MG PO (09:10)
[2024-07-16] MEDS: TEGRETOL XR (EXTENDED RELEASE) 400 MG PO ×2 (09:11→21:05)
[2024-07-16] MEDS: KEPPRA 1750 MG PO ×2 (09:11→21:03)
[2024-07-16] MEDS: VITAMIN B-12 1000 MCG PO (09:12)
[2024-07-16] MEDS: MIRALAX 17 GRAMS PO (09:12)
[2024-07-16 10:26] LABS: TSH 0.14 uIU/ml (0.47-4.68)
[2024-07-16] MEDS: ROCEPHIN 1000 MG IV (10:37)
[2024-07-16] MEDS: STERILE WATER FOR INJECTION 10 ML IV (10:37)
[2024-07-16 10:45] LABS: Vitamin B12 978 pg/ml (239-931)
[2024-07-16 11:14] VITALS: BP 130/50
[2024-07-16 15:27] VITALS: BP 138/60
--- NOTE | 2024-07-16 16:44 | W.PN.HOSP.TC ---
Today's Communication/Plan
-
Continue to monitor INR
Continue ceftriaxone
Restart Norvasc and continue clonidine patch
Add on LFTS
Assessment / Plan
Assessment / Plan
Seen earlier today. was at bedside
Patient was awake alert pleasant communicating oriented
Cardiovascular system S1-S2 appreciated
Chest clear to auscultation
Abdomen soft and nontender
Neuroexam mostly nonfocal
# TME-likely secondary to fever
Patient's stated that he was behaving like this when he had seizures in the past-check EEG
Head CT without any acute changes
EEG no active seizures, moderate to severe generalized slowing in the right frontal/central sharps indicated of propensity to develop seizures. Patient is awake alert oriented today
# Fever
Likely secondary to UTI
COVID influenza screen negative
Check blood cultures negative and urine cultures with E. coli
Continue antibiotics-ceftriaxone
Check ultrasound of the kidneys and bladder
# Coumadin induced coagulopathy-hold Coumadin again tonight. Daily INR. If INR is going up again tomorrow will provide vitamin K. No bleeding noted now. Patient was advised not to get out of bed without help. Fall precautions placed.
# Paroxysmal atrial fibrillation-continue
# Chronic HFrEF -hold Lasix in the setting of infection
08/25/[id number] LV size. EF 45 to 50%. Reduced RV systolic function. Severely dilated LA. Moderately dilated RA. Mild MR. Mild to moderate AAS. Severe TR. Pulmonary artery pressure 60 to 65 mmHg.
# Hypertension-continue clonidine patch, hold minoxidil and restart Norvasc
# Seizures-continue Xcopri, Keppra, carbamazepine.
# GERD-continue PPI
# Chronic anemia-NOS
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
# Ambulatory dysfunction
# Dementia
# Sleep apnea- states that patient lost weight and had seen Dr. Pace. He does not need to use CPAP anymore.
# DVT prophylaxis-elevated INR
# CODE STATUS-DNR per discussion with
D/W at bed side
Anticipated Discharge: 24 - 48 hours
Subjective/Interval History
-
Date of Service: July 16, 2024
Objective Data
-
Labs:
Laboratory Results
07/16/24
06:05
WBC 16.4 H
Hgb 10.0 L
Hct 30.3 L
Plt Count 178
PT 44.7 H
INR 4.86
Sodium 141
Potassium 4.0
Chloride 103
Carbon Dioxide 30
BUN 28 H
Creatinine 1.2
Glucose 92
Calcium 8.5
Vital Signs:
Vital Signs
Temp Pulse Resp BP Pulse Ox
97.8 F 85 18 138/60 94
07/16/24 15:27 07/16/24 15:27 07/16/24 15:27 07/16/24 15:27 07/16/24 15:27
I&O
07/15/24 07/16/24 07/17/24
06:59 06:59 06:59
Intake Total 1320 / 1320
Balance 1320 / 1320
[2024-07-16 17:30] LABS: ALT (SGPT) 19 U/L (0-50); AST (SGOT) 21 U/L (17-59); Albumin 3.5 g/dl (3.5-5.0); Alkaline Phosphatase 65 U/L (38-126); Direct Bilirubin 0.2 mg/dl (0.0-0.4); Total Bilirubin 0.5 mg/dl (0.2-1.3); Total Protein 6.2 g/dl (6.3-8.2)
[2024-07-16] MEDS: NORVASC 2.5 MG PO (17:35)
[2024-07-16] MEDS: NON-FORMULARY ITEM 200 MG PO (17:36)
[2024-07-16 19:39] VITALS: BP 127/60
[2024-07-16 23:52] VITALS: BP 138/59
[2024-07-17] VITALS (8 sets, daily range): BP systolic 135–165; BP diastolic 59–73; PULSE 61; O2SAT 98
[2024-07-17] MEDS: CATAPRES-TTS-2 0.2 MG TRANSDERM (08:14)
[2024-07-17 08:22] LABS: INR 2.69
[2024-07-17 08:23] LABS: Hematocrit 26.6 % (39.0-52.0); Hemoglobin 8.9 g/dL (13.0-18.0); Mean Corp Hgb Conc. 33.5 g/dL (33.0-37.0); Mean Corpuscular Hgb 33.7 pg (27.0-31.0); Mean Corpuscular Volume 100.8 fL (80.0-94.0); Mean Platelet Volume 10.6 fL (7.4-10.4); Platelet Count 156 10^3/uL (130-400); Red Blood Cell Count 2.64 10^6/uL (4.70-6.10); Red Cell Dist. Width 11.9 % (11.5-14.5); White Blood Cell Count 12.4 10^3/uL (4.8-10.8)
--- NOTE | 2024-07-17 09:02 | CM ---
PT OT miguel ordered.
Continue on IV antibiotics.
Pt lives with .
Offered VN he declined need.
will drive him home.
PLAN Home no needs
[2024-07-17 09:10] LABS: Blood Urea Nitrogen 29 mg/dl (9-20); Calcium 8.5 mg/dl (8.4-10.2); Carbon Dioxide 30 mmol/L (22-30); Chloride 101 mmol/L (98-107); Estimated Creatinine Clearance 52 ml/min; Glucose 101 mg/dl (70-99); Potassium 3.8 mmol/L (3.5-5.1); Sodium 137 mmol/L (135-145); eGFR > 60.00
[2024-07-17] MEDS: TEGRETOL XR (EXTENDED RELEASE) 400 MG PO ×2 (09:10→19:56)
[2024-07-17] MEDS: NORVASC 2.5 MG PO (09:10)
[2024-07-17] MEDS: VITAMIN B-12 1000 MCG PO (09:10)
[2024-07-17] MEDS: PROTONIX 40 MG PO (09:10)
[2024-07-17] MEDS: KEPPRA 1750 MG PO ×2 (09:11→19:55)
[2024-07-17] MEDS: MIRALAX 17 GRAMS PO (09:11)
[2024-07-17] MEDS: STERILE WATER FOR INJECTION 10 ML IV (10:39)
[2024-07-17] MEDS: ROCEPHIN 1000 MG IV (10:40)
--- NOTE | 2024-07-17 14:32 | W.PN.HOSP.TC ---
Today's Communication/Plan
-
Continue antibiotics
Coumadin tonight
PT OT
Possible discharge tomorrow
Assessment / Plan
Assessment / Plan
was at bedside
Patient was awake alert pleasant communicating oriented
Cardiovascular system S1-S2 appreciated
Chest clear to auscultation
Abdomen soft and nontender
Neuroexam mostly nonfocal
# TME-likely secondary to fever
Resolved patient is back to baseline
Head CT without any acute changes
EEG no active seizures, moderate to severe generalized slowing in the right frontal/central sharps indicated of propensity to develop seizures. Patient is awake alert oriented today
# Fever
Likely secondary to E. coli UTI
Continue antibiotics-ceftriaxone
Ultrasound of the kidneys and bladder trabeculations-discussed with patient and regarding outpatient follow-up with urology
# Paroxysmal atrial fibrillation-continue 4 mg of Coumadin tonight
# Chronic HFrEF -hold Lasix in the setting of infection
08/25/[id number] LV size. EF 45 to 50%. Reduced RV systolic function. Severely dilated LA. Moderately dilated RA. Mild MR. Mild to moderate AAS. Severe TR. Pulmonary artery pressure 60 to 65 mmHg.
# Hypertension-continue clonidine patch, hold minoxidil and continue Norvasc
# Seizures-continue Xcopri, Keppra, carbamazepine.
# GERD-continue PPI
# Chronic anemia-NOS
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
# Ambulatory dysfunction
# Dementia
# Sleep apnea- states that patient lost weight and had seen Dr. Pace. He does not need to use CPAP anymore.
# DVT prophylaxis-elevated INR
# CODE STATUS-DNR per discussion with
D/W at bed side
Did well with physical therapy. Patient was ambulating in the halls
Anticipated Discharge: Within 24 hours
Subjective/Interval History
-
Date of Service: July 17, 2024
Objective Data
-
Labs:
Laboratory Results
07/17/24
07:14
WBC 12.4 H
Hgb 8.9 L
Hct 26.6 L
Plt Count 156
PT 29.0 H
INR 2.69 D
Sodium 137
Potassium 3.8
Chloride 101
Carbon Dioxide 30
BUN 29 H
Creatinine 1.1
Glucose 101 H
Calcium 8.5
Vital Signs:
Vital Signs
Temp Pulse Resp BP Pulse Ox
98.2 F 62 18 140/63 100
07/17/24 11:17 07/17/24 11:17 07/17/24 11:17 07/17/24 11:17 07/17/24 11:17
I&O
07/16/24 07/17/24 07/18/24
06:59 06:59 06:59
Intake Total 1320 / 1320 940 / 940 600 / 600
Balance 1320 / 1320 940 / 940 600 / 600
--- NOTE | 2024-07-17 15:17 | PN.CDI ---
Addendum entered and electronically signed by Haleigh So MD 07/18/24 08:20:
Documentation is complete at this time.
Original Note:
CDI
- -
CDI:
Physician Documentation Request
Admit Date: 07/15/24 11:45
Dear Doctor Judah,
Please review the following and provide your response in the progress notes.
Clinical Indicators:
Pt admitted with fever 2/2 UTI pt being teated with ceftriaxone /TME
On admission Tmax 101.4, WBC 15.5,HR 106, Respirations 30
Please clarify which of the following most accurately describes the status of the patient's infection:
Sepsis-POA
- Systemic manifestations of infection, with 2 or more SIRS criteria which include:
- Fever >100.4 degrees F or hypothermia < 96.8 degrees F
- Leukocytosis - WBC > 12,000 or leukopenia - WBC < 4,000 or > 10% bands
- Tachycardia > 90 beats per minute
- Tachypnea - RR > 20 breaths per minute or PaCO2 , 32mmHg
Source: Merck Manual 2013
UTI only, Without Systemic Illness
Other ( please specify)
Use of terms such as suspected, likely, concern for, or probable (associated with a specific diagnosis that is being evaluated, monitored, or treated as if it exists) are acceptable and can be coded in the inpatient setting, when documented at the
time of discharge.
Thank you,
Sosa Vu RN
CDI Specialist
Bryan Text
Please use your independent medical judgment in providing your response.
[2024-07-17] MEDS: NON-FORMULARY ITEM 200 MG PO (18:16)
[2024-07-17] MEDS: COUMADIN 4 MG PO (18:45)
[2024-07-18 03:30] VITALS: BP 142/60
[2024-07-18 07:54] VITALS: BP 162/90
[2024-07-18 08:16] LABS: INR 1.51; PT 18.7 Sec (11.4-14.6)
[2024-07-18 08:19] LABS: Hemoglobin 8.7 g/dL (13.0-18.0); Mean Corp Hgb Conc. 33.5 g/dL (33.0-37.0); Mean Corpuscular Hgb 33.3 pg (27.0-31.0); Mean Corpuscular Volume 99.6 fL (80.0-94.0); Mean Platelet Volume 11.1 fL (7.4-10.4); Platelet Count 167 10^3/uL (130-400); Red Blood Cell Count 2.61 10^6/uL (4.70-6.10); Red Cell Dist. Width 11.9 % (11.5-14.5); White Blood Cell Count 8.6 10^3/uL (4.8-10.8)
[2024-07-18 09:01] LABS: Blood Urea Nitrogen 20 mg/dl (9-20); Calcium 8.4 mg/dl (8.4-10.2); Carbon Dioxide 29 mmol/L (22-30); Chloride 100 mmol/L (98-107); Estimated Creatinine Clearance 57 ml/min; Glucose 86 mg/dl (70-99); Potassium 4.1 mmol/L (3.5-5.1); Sodium 135 mmol/L (135-145); eGFR > 60.00
[2024-07-18] MEDS: MIRALAX PO ×2 (09:28→09:42)
[2024-07-18] MEDS: TEGRETOL XR (EXTENDED RELEASE) 400 MG PO (09:28)
[2024-07-18] MEDS: PROTONIX 40 MG PO (09:29)
[2024-07-18] MEDS: KEPPRA 1750 MG PO (09:29)
[2024-07-18] MEDS: VITAMIN B-12 1000 MCG PO (09:29)
[2024-07-18] MEDS: NORVASC 2.5 MG PO (09:29)
[2024-07-18] MEDS: LOVENOX 70 MG SC (09:30)
[2024-07-18] MEDS: STERILE WATER FOR INJECTION 10 ML IV (09:44)
[2024-07-18] MEDS: ROCEPHIN 1000 MG IV (09:44)
--- NOTE | 2024-07-18 10:45 | W.PN.HOSP.TC ---
Addendum entered and electronically signed by Haleigh So MD 07/18/24 11:49:
Patient has no urinary retention on bladder scan
Iron studies noted
Patient is already on B12 supplements
Outpatient workup for anemia
Total discharge coordination time more than 32 minutes
Original Note:
Today's Communication/Plan
-
Check iron studies
Possible discharge today
Assessment / Plan
Assessment / Plan
at bedside
Patient was awake alert pleasant communicating oriented
Cardiovascular system S1-S2 appreciated
Chest clear to auscultation
Abdomen soft and nontender rectal heme test negative, brown stool
Neuroexam mostly nonfocal
# TME-likely secondary to fever
Resolved patient is back to baseline
Head CT without any acute changes
EEG no active seizures, moderate to severe generalized slowing in the right frontal/central sharps indicated of propensity to develop seizures. Patient is awake alert oriented today
# Anemia-last colonoscopy that I can see in the system was from 2015 with diverticulosis sigmoid polyp. Had an endoscopy 10/13/2023 erythematous mucosa food in the stomach irregular Z-line
Check iron studies
Outpatient GI follow-up for workup.
Heme test negative brown stool
No source of bleeding noted
# Fever
Likely secondary to E. coli UTI
Continue antibiotics-ceftriaxone
Ultrasound of the kidneys and bladder trabeculations-discussed with patient and regarding outpatient follow-up with urology
# Paroxysmal atrial fibrillation-continue 6 mg of Coumadin tonight 1 dose of Lovenox given.
# Chronic HFrEF -hold Lasix in the setting of infection
08/25/[id number] LV size. EF 45 to 50%. Reduced RV systolic function. Severely dilated LA. Moderately dilated RA. Mild MR. Mild to moderate AAS. Severe TR. Pulmonary artery pressure 60 to 65 mmHg.
# Hypertension-continue clonidine patch, hold minoxidil and continue Norvasc
# Seizures-continue Xcopri, Keppra, carbamazepine.
# GERD-continue PPI
# Chronic anemia-NOS
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
# Ambulatory dysfunction
# Dementia
# Sleep apnea- states that patient lost weight and had seen Dr. Pace. He does not need to use CPAP anymore.
# DVT prophylaxis-elevated INR
# CODE STATUS-patient wanted to be full code changed to full code
D/W at bed side
Discussed with nursing at bedside
Anticipated Discharge: Today
Subjective/Interval History
-
Date of Service: July 18, 2024
Objective Data
-
Labs:
Laboratory Results
07/18/24
06:19
WBC 8.6
Hgb 8.7 L
Hct 26.0 L
Plt Count 167
PT 18.7 H
INR 1.51
Sodium 135
Potassium 4.1
Chloride 100
Carbon Dioxide 29
BUN 20
Creatinine 1.0
Glucose 86
Calcium 8.4
Vital Signs:
Vital Signs
Temp Pulse Resp BP Pulse Ox
98.8 F 60 18 160/78 98
07/18/24 07:54 07/18/24 09:29 07/18/24 07:54 07/18/24 09:29 07/18/24 09:30
I&O
07/17/24 07/18/24 07/19/24
06:59 06:59 06:59
Intake Total 940 / 940 1440 / 1440
Output Total 200 / 200
Balance 940 / 940 1240 / 1240
[2024-07-18 11:21] LABS: Iron 73 ug/dl (49-181)
[2024-07-18 11:31] LABS: Percent Saturation 44 % (20-50); Total Iron Binding Capacity 164 ug/dl (261-462)
[2024-07-18] MEDS: LASIX 40 MG PO (11:33)
[2024-07-18] MEDS: LONITEN 5 MG PO (11:34)
--- NOTE | 2024-07-18 11:48 | W.DS.TRANS ---
Addendum entered and electronically signed by Haleigh So MD 07/18/24 14:22:
Dictation- [id number]
Original Note:
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
-
Discharge Instructions:
Discharge Diagnosis/Procedures E. coli UTI
Seizures
Atrial fibrillation
Chronic heart failure
Hypertension
GERD
Anemia
Sleep apnea
Diet Restrict fluids to 64 oz,2 Gram Sodium
Activity As tolerated,With assistance
Driving Restrictions No driving
Blood Work PT INR monday with your coumadin clinic. CBC 2
weeks .
Other Services VN
Specialty Instructions Weigh Daily
Instructions:
Stand-Alone Forms:
Changes to Home Medications: Yes
Discharge Medications:
DC Medications w/original date entered in [employer]
minoxidil 10 mg tablet 10 mg PO BID Blood Pressure 01/22/23
cyanocobalamin (vitamin B-12) 1,000 mcg tablet 1,000 mcg PO DAILY Supplement 10/17/23
furosemide 40 mg tablet 40 mg PO DAILY Fluid Retention/Swelling 10/17/23
pantoprazole 40 mg tablet,delayed release 40 mg PO DAILY Gastrointestinal Issue 10/17/23
polyethylene glycol 3350 17 gram oral powder packet (HealthyLax) 17 g PO DAILY Gastrointestinal Issue 10/17/23
warfarin 1 mg tablet 6 mg PO QPM Blood Clot Prevention/Tx 10/17/23
cenobamate 200 mg tablet (Xcopri) 200 mg PO QPM Seizures 05/27/24
clonidine 0.2 mg/24 hr weekly transdermal patch 0.2 mg transdermal WE Blood Pressure 30 days #4 ea 05/29/24
amlodipine 2.5 mg tablet 2.5 mg PO DAILY Blood Pressure 07/15/24
carbamazepine 200 mg tablet,extended release,12 hr 400 mg PO BID Seizures 07/15/24
levetiracetam 500 mg tablet 1,750 mg PO BID seizures 07/15/24
lorazepam 1 mg tablet 1 mg PO Q4HPRN PRN anxiety 07/15/24
cefuroxime axetil 500 mg tablet 500 mg PO BID Urinary issue 7 days #14 tabs 07/18/24
Home Medication Changes
new
cefuroxime axetil 500 mg tablet 500 mg PO BID Urinary issue 7 days #14 tabs 07/18/24
Pending Results: No
[2024-07-18 11:57] VITALS: BP 149/60
[2024-07-18 12:11] LABS: Vitamin B12 861 pg/ml (239-931)
[2024-07-18 14:47] VITALS: BP 174/74; PULSE 63; O2SAT 99
[2024-07-18 15:31] VITALS: BP 149/69
--- NOTE | 2024-07-18 16:18 | CM ---
MD entered order for discharge.
IMM given explained signed on chart.
Offered VN he declined need.
will drive him home.
PLAN Home no needs
== END 2024-07-18 17:03 | disposition home or self-care (01) | DRG 689 ==
LOC: 4 EAST ACU 11:45
PROVIDERS: Emergency Medicine; Physician Assistant; ADMITTING PHYSICIAN Hospitalist; EMERGENCY PHYSICIAN Student in an Organized Health Care Education/Training Program; FAMILY PHYSICIAN Internal Medicine
DX: N39.0 Urinary tract infection, site not specified (principal); G92.8 Other toxic encephalopathy; I50.22 Chronic systolic (congestive) heart failure; D68.9 Coagulation defect, unspecified; B96.20 Unspecified Escherichia coli [E. coli] as the cause of diseases classified elsewhere; D64.9 Anemia, unspecified; K21.9 Gastro-esophageal reflux disease without esophagitis; Z66 Do not resuscitate; I11.0 Hypertensive heart disease with heart failure; F03.90 Unspecified dementia, unspecified severity, without behavioral disturbance, psychotic disturbance, mood disturbance, and anxiety; E78.00 Pure hypercholesterolemia, unspecified; R56.9 Unspecified convulsions; T45.515A Adverse effect of anticoagulants, initial encounter; G47.33 Obstructive sleep apnea (adult) (pediatric); I48.0 Paroxysmal atrial fibrillation; Z79.899 Other long term (current) drug therapy; Z79.01 Long term (current) use of anticoagulants; Z11.52 Encounter for screening for COVID-19; Z86.73 Personal history of transient ischemic attack (TIA), and cerebral infarction without residual deficits; Z86.61 Personal history of infections of the central nervous system; Z85.118 Personal history of other malignant neoplasm of bronchus and lung
CPT/HCPCS: 70450; 76770; 80048; 80053; 81003; 81015; 82248; 82607; 83540; 83550; 83605; 83735; 84443; 85025; 85027; 85610; 87040; 87086; 87088; 87186; 87502; 87811; 93005; 95816; 96361; 96374; 96375; 97163; 97166; 99285

== ENCOUNTER → 2024-07-22 13:07 | Outpatient (REF) | payer MEDICARE, OTHER, SELFPAY ==
[2024-07-22 14:27] LABS: INR 1.81; PT 21.1 Sec (11.4-14.6)
== END ==
LOC: REG 13:07
PROVIDERS: ATTENDING PHYSICIAN Internal Medicine Cardiovascular Disease; FAMILY PHYSICIAN Internal Medicine
DX: I48.0 Paroxysmal atrial fibrillation (principal); Z79.01 Long term (current) use of anticoagulants
CPT/HCPCS: 36415; 85610

== ENCOUNTER → 2024-08-07 10:11 | Outpatient (REF) | payer MEDICARE, OTHER, SELFPAY ==
[2024-08-07 11:38] LABS: INR 3.78; PT 37.5 Sec (11.4-14.6)
== END ==
LOC: REG 10:11
PROVIDERS: ATTENDING PHYSICIAN Internal Medicine Cardiovascular Disease
DX: I48.0 Paroxysmal atrial fibrillation (principal); Z79.01 Long term (current) use of anticoagulants
CPT/HCPCS: 36415; 85610

== ENCOUNTER → 2024-08-12 13:16 | Outpatient (REF) | payer MEDICARE, OTHER, SELFPAY ==
[2024-08-12 14:28] LABS: INR 2.63
== END ==
LOC: REG 13:16
PROVIDERS: ATTENDING PHYSICIAN Internal Medicine Cardiovascular Disease
DX: I48.0 Paroxysmal atrial fibrillation (principal); Z79.01 Long term (current) use of anticoagulants
CPT/HCPCS: 36415; 85610

== ENCOUNTER → 2024-08-26 13:19 | Outpatient (REF) | payer MEDICARE, OTHER, SELFPAY ==
[2024-08-26 14:54] LABS: INR 2.81; PT 29.5 Sec (11.4-14.6)
== END ==
LOC: REG 13:19
PROVIDERS: ATTENDING PHYSICIAN Internal Medicine Cardiovascular Disease; FAMILY PHYSICIAN Internal Medicine
DX: I48.0 Paroxysmal atrial fibrillation (principal); Z79.01 Long term (current) use of anticoagulants
CPT/HCPCS: 36415; 85610

== ENCOUNTER → 2024-09-14 07:56 | Outpatient (REF) | payer MEDICARE, OTHER, SELFPAY ==
[2024-09-14 09:50] LABS: % Basophils 0.9 % (0-2); % Immature Granulocytes 0.4 % (0-0.5); % Lymphocytes 31.6 % (20.5-51.1); % Monocytes 9.7 % (1.7-9.3); % Neutrophils 54.4 % (42.2-75.2); Absolute Basophils 0.1 10^3/uL (0-0.2); Absolute Eosinophils 0.2 10^3/uL (0-0.7); Absolute Lymphocytes 1.7 10^3/uL (1.2-3.4); Absolute Monocytes 0.5 10^3/uL (0.1-0.6); Absolute Neutrophils 2.9 10^3/uL (1.4-6.5); Hematocrit 32.4 % (39.0-52.0); Hemoglobin 11.1 g/dL (13.0-18.0); Mean Corp Hgb Conc. 34.3 g/dL (33.0-37.0); Mean Corpuscular Volume 96.4 fL (80.0-94.0); Mean Platelet Volume 10.4 fL (7.4-10.4); Nucleated Red Blood Cells % 0 % (-); Platelet Count 205 10^3/uL (130-400); Red Blood Cell Count 3.36 10^6/uL (4.70-6.10); Red Cell Dist. Width 12.5 % (11.5-14.5); Reticulocyte Count 1.2 % (0.4-2.8); White Blood Cell Count 5.3 10^3/uL (4.8-10.8)
[2024-09-14 10:29] LABS: ALT (SGPT) 24 U/L (0-50); AST (SGOT) 29 U/L (17-59); Albumin 4.3 g/dl (3.5-5.0); Alkaline Phosphatase 73 U/L (38-126); Blood Urea Nitrogen 28 mg/dl (9-20); Calcium 9.2 mg/dl (8.4-10.2); Carbon Dioxide 28 mmol/L (22-30); Chloride 99 mmol/L (98-107); Glucose 95 mg/dl (70-99); Iron 159 ug/dl (49-181); Potassium 4.9 mmol/L (3.5-5.1); Sodium 137 mmol/L (135-145); Total Bilirubin 0.5 mg/dl (0.2-1.3); Total Protein 7.4 g/dl (6.3-8.2); eGFR > 60.00
[2024-09-14 10:39] LABS: Percent Saturation 70 % (20-50); Total Iron Binding Capacity 224 ug/dl (261-462)
[2024-09-14 11:17] LABS: Vitamin B12 968 pg/ml (239-931)
== END ==
LOC: REG 07:56
PROVIDERS: ATTENDING PHYSICIAN Internal Medicine
DX: G40.909 Epilepsy, unspecified, not intractable, without status epilepticus (principal); I48.0 Paroxysmal atrial fibrillation; G95.9 Disease of spinal cord, unspecified; Z85.118 Personal history of other malignant neoplasm of bronchus and lung; R79.89 Other specified abnormal findings of blood chemistry; D53.9 Nutritional anemia, unspecified; Z09 Encounter for follow-up examination after completed treatment for conditions other than malignant neoplasm
CPT/HCPCS: 36415; 80053; 82607; 82746; 83540; 83550; 85025; 85045

== ENCOUNTER → 2024-09-16 12:53 | Outpatient (REF) | payer MEDICARE, OTHER, SELFPAY ==
[2024-09-16 14:03] LABS: INR 2.88; PT 30.1 Sec (11.4-14.6)
== END ==
LOC: REG 12:53
PROVIDERS: ATTENDING PHYSICIAN Internal Medicine Cardiovascular Disease; FAMILY PHYSICIAN Internal Medicine
DX: I48.0 Paroxysmal atrial fibrillation (principal); Z79.01 Long term (current) use of anticoagulants
CPT/HCPCS: 36415; 85610

== ENCOUNTER → 2024-10-14 13:09 | Outpatient (REF) | payer MEDICARE, OTHER, SELFPAY ==
[2024-10-14 14:03] LABS: INR 2.54; PT 27.4 Sec (11.4-14.6)
== END ==
LOC: REG 13:09
PROVIDERS: ATTENDING PHYSICIAN Internal Medicine Cardiovascular Disease; FAMILY PHYSICIAN Internal Medicine
DX: I48.0 Paroxysmal atrial fibrillation (principal); Z79.01 Long term (current) use of anticoagulants
CPT/HCPCS: 36415; 85610

== ENCOUNTER 2024-10-24 09:56 | Inpatient (IN) | payer MEDICARE, OTHER, SELFPAY ==
[2024-10-24] VITALS (11 sets, daily range): BP systolic 114–203; BP diastolic 52–74; BMI 22.7; BMI 21.2
--- NOTE | 2024-10-24 06:41 | ED.GENMED ---
History of Present Illness
General
Chief Complaint: Weakness
Time Seen by Provider: 10/24/24 06:22
History of Present Illness
History of Present Illness:
Patient is a 84-year-old male with history of seizures, A-fib on Coumadin, HFrEF, recurrent UTIs presenting to the emergency department with weakness. Patient's is at bedside provides most of the history. She states that yesterday morning she
noticed that his balance was slightly off. In the afternoon he became more tired and less talkative. Last night he developed weakness to the point he could not change his depends and became nauseous and had a few episodes of emesis. He has been
having increased urination. No fevers chills. No diarrhea. No changes in medication. No travel. No new food. No recent sick contacts. He has not been confused. This does not feel like his seizures per his . No focal deficits observed.
She does state that he is prone to UTIs.
Past History
Past History
ED Past Medical History: Asthma, Cancer (Lung), CHF, CVA, HTN, Hypercholesterolemia, Seizures and Other (COREY, C-pap at night, Meningitis, )
ED Past Surgical History: Tonsilectomy and Other (right lobectomy, Uvulectomy)
Social History
Tobacco: Non-smoker
Alcohol: None
Drug: None
Personal:
Living: with family
Employment: Retired
Family History
Family History: Other (reviewed and Noncontributory)
Phy Exam
Physical Exam
Physical Exam:
GENERAL: in no acute distress, appears tired
HEENT: normocephalic, extraocular movements intact, moist oral mucosa
NECK: normal inspection
RESPIRATORY: no respiratory distress, clear to auscultation bilaterally
CARDIOVASCULAR: regular rate and rhythm
ABDOMEN/: soft, non-distended, non-tender to palpation, no rebound or guarding
EXTREMITIES: non-tender, no edema/swelling
NEUROLOGIC: alert and oriented x 3, cranial nerves II-XII intact, right upper extremity strength 5/5, left upper extremity strength 5/5, right lower extremity strength 4/5, left lower extremity strength 4/5, normal sensation to light touch, normal
[id number] and [id number]-[id number], gait not tested formally
SKIN: warm
Course
Orders/Labs/Results
Orders:
Orders
10/24/24 06:32
CMP [Comprehensive Metabolic Panel] Urgent
Complete Blood Count/With Diff Urgent
10/24/24 06:33
Electrocardiogram (*1) Urgent
Reason for Study: Fatigue / Weakness
EKG- Treatment ONCE
10/24/24 06:36
COVID-19 Antigen Urgent
Source: Nasal Swab
Influenza A+B Rapid Molecular Urgent
MISHA Source: Nasal Swab
Specimen Description:
10/24/24 06:40
CT Abd/pelvis W Iv Cont Urgent
Comment:
Reason For Exam: vomitting
CT Head W/o Iv Contrast Urgent
Comment:
Reason For Exam: balance problems, hypertensive
0.9% Sodium Chloride 500 ml [Nss] 500 ml IV BOLUS
Ondansetron Injectable [Zofran] 4 mg IV NOW STA
10/24/24 08:47
Urinalysis Reflex To Culture Urgent
Date Specimen was Collected: 10/24/24
Time Specimen was Collected: 08:41
10/24/24 08:55
Piperacillin/Tazo 3.375 Gram [Zosyn] 3.375 gram in 50 ml IV NOW
Abnormal Lab Results
10/24/24
06:32
RBC 3.24 L 10^6/uL
(4.70-6.10)
Hgb 10.9 L g/dL
(13.0-18.0)
Hct 31.6 L %
(39.0-52.0)
MCV 97.5 H fL
(80.0-94.0)
MCH 33.6 H pg
(27.0-31.0)
Abs Immat Gran (auto) 0.1 H 10^3/uL
(0-0.05)
Absolute Neuts (auto) 7.5 H 10^3/uL
(1.4-6.5)
Absolute Lymphs (auto) 1.0 L 10^3/uL
(1.2-3.4)
Immature Gran % 0.9 H %
(0-0.5)
Neutrophils % 81.9 H %
(42.2-75.2)
Lymphocytes % 10.7 L %
(20.5-51.1)
Carbon Dioxide 32 H mmol/L
(22-30)
BUN 27 H mg/dl
(9-20)
Glucose 169 H mg/dl
(70-99)
10/24/24 06:32
10/24/24 06:32
Vital Signs
Initial and Last Documented VS:
Initial Vital Signs
Temp Pulse Resp BP Pulse Ox
98.1 F 78 20 203/74 96
10/24/24 06:20 10/24/24 06:20 10/24/24 06:20 10/24/24 06:20 10/24/24 06:20
Last Documented Vital Signs
Temp Pulse Resp BP Pulse Ox
98.1 F 69 15 130/54 94
10/24/24 06:20 10/24/24 07:00 10/24/24 07:00 10/24/24 07:00 10/24/24 06:45
MDM/Problems Addressed
Differential Diagnosis Includes:
Patient is a 84-year-old man with history of A-fib on Coumadin, heart failure, seizures, hypertension, recurrent UTIs presenting to the emergency department with weakness nausea vomiting. Vitals are notable for being hypertensive and exam does not
show any focal abnormalities. Symptoms could be related to gastritis or recurrent UTI. History exam is not consistent with an acute abdomen such as obstruction or volvulus or perforated viscus. However given patient's balance problems and
hypertension I am concerned about intracranial abnormality such as intracranial hemorrhage or possible CVA. It is reassuring that he does not have any neurodeficits currently. Will check blood work viral swabs urinalysis CT scan of the head and
abdomen. Will give antiemetics and small fluid bolus.
*Critical Care Note
Total Time (30-74mins, 75-104mins- exclusive of procedures): Not Applicable
Update Note
Update Note:
On reevaluation patient nausea has improved after the Zofran. His blood pressure also normalized without any intervention.
CT scan head per my interpretation with no acute abnormality. CT scan of the abdomen pelvis with acute diverticulitis. Possible cystitis. Pending urine at this time. Given patient's Coumadin use we will give patient Zosyn which will also cover
possible urine infection as patient is pansensitive to prior cultures. Discussed with hospitalist who accepted patient to their service.
ED Attending Note
-
Portions of this chart may have been created with voice recognition software.� Occasional wrong word or��sound alike� substitutions may have occurred due to the inherent limitations of voice recognition software.
Discharge Plan
Departure
Patient Disposition: Admit
Date of Disposition: 10/24/24
Time of Disposition: 08:57
Presentation/result/management discussed w/ accepting MD/DO: Hospitalist
Discharge Problem:
Diverticulitis
Prescriptions:
No Action
minoxidil 10 mg Tablet
10 mg PO BID
furosemide 40 mg Tablet
40 mg PO DAILY
warfarin 1 mg Tablet
6 mg PO QPM
polyethylene glycol 3350 [HealthyLax] 17 gram powder in packet
17 g PO DAILY
cyanocobalamin (vitamin B-12) 1,000 mcg tablet
1,000 mcg PO DAILY
pantoprazole 40 mg tablet,delayed release (DR/EC)
40 mg PO DAILY
Xcopri 200 mg Tablet
200 mg PO QPM
clonidine 0.2 mg/24 hr patch weekly
0.2 mg transdermal WE 30 Days Qty: 4 0RF
amlodipine 2.5 mg Tablet
2.5 mg PO DAILY
carbamazepine 200 mg tablet extended release 12 hr
400 mg PO BID
levetiracetam 500 mg tablet
1,750 mg PO BID
lorazepam 1 mg tablet
1 mg PO Q4HPRN PRN (Reason: anxiety)
cefuroxime axetil 500 mg tablet
500 mg PO BID 7 Days Qty: 14 0RF
Referrals:
UNKNOWN - PT DOES,NOT KNOW [Family Provider] -
Interventions
Interventions:
*Risk Screen - Suicide Last Done: 10/24/24 06:20
*General Assessment Last Done: 10/24/24 06:20
*Neglect/Abuse Screening Last Done: 10/24/24 06:20
*ED- Fall Risk Assessment Last Done: 10/24/24 06:27
*ED COVID-19 Vaccine History Last Done: 10/24/24 06:20
ED- Cardiac Assessment Last Done: 10/24/24 06:55
ED- Neurological Assessment Last Done: 10/24/24 06:55
ED- Pulmonary Assessment Last Done: 10/24/24 06:55
Discharge Date and Time
Print Language: ARABIC
[2024-10-24] MEDS: ZOFRAN 4 MG IV (06:47)
[2024-10-24] MEDS: NSS 500 IV (06:47)
[2024-10-24 06:48] LABS: % Basophils 0.5 % (0-2); % Immature Granulocytes 0.9 % (0-0.5); % Lymphocytes 10.7 % (20.5-51.1); % Neutrophils 81.9 % (42.2-75.2); Absolute Basophils 0.1 10^3/uL (0-0.2); Absolute Immature Granulocytes 0.1 10^3/uL (0-0.05); Absolute Monocytes 0.6 10^3/uL (0.1-0.6); Absolute Neutrophils 7.5 10^3/uL (1.4-6.5); Hematocrit 31.6 % (39.0-52.0); Hemoglobin 10.9 g/dL (13.0-18.0); Mean Corp Hgb Conc. 34.5 g/dL (33.0-37.0); Mean Corpuscular Hgb 33.6 pg (27.0-31.0); Mean Corpuscular Volume 97.5 fL (80.0-94.0); Mean Platelet Volume 9.9 fL (7.4-10.4); Nucleated Red Blood Cells % 0 % (-); Platelet Count 210 10^3/uL (130-400); Red Blood Cell Count 3.24 10^6/uL (4.70-6.10); Red Cell Dist. Width 11.9 % (11.5-14.5); White Blood Cell Count 9.1 10^3/uL (4.8-10.8)
[2024-10-24 07:19] LABS: ALT (SGPT) 16 U/L (0-50); AST (SGOT) 20 U/L (17-59); Albumin 4.1 g/dl (3.5-5.0); Alkaline Phosphatase 93 U/L (38-126); Blood Urea Nitrogen 27 mg/dl (9-20); Calcium 9.3 mg/dl (8.4-10.2); Carbon Dioxide 32 mmol/L (22-30); Chloride 100 mmol/L (98-107); Estimated Creatinine Clearance 52 ml/min; Glucose 169 mg/dl (70-99); Potassium 4.1 mmol/L (3.5-5.1); Sodium 140 mmol/L (135-145); Total Bilirubin 0.6 mg/dl (0.2-1.3); Total Protein 7.2 g/dl (6.3-8.2); eGFR > 60.00
[2024-10-24 07:46] LABS: COVID-19 Antigen Negative (Negative)
--- NOTE | 2024-10-24 09:00 | EDRN ---
Spouse administered pt's daily AM meds which was okayed by Dr Monroe.
[2024-10-24 09:09] LABS: Urine Albumin 2+ (Neg - Trace); Urine Bilirubin Negative (Negative); Urine Character Clear (Clear); Urine Color Yellow; Urine Glucose Negative (Negative); Urine Ketone Negative (Negative); Urine Leukocyte 3+ (Negative); Urine Nitrite Negative (Negative); Urine Occult Blood Negative (Negative); Urine Urobilinogen Negative (Neg - 1+)
--- NOTE | 2024-10-24 09:29 | HPS.HSE ---
Family Physician
-
Family Physician: NOT KNOW UNKNOWN - PT DOES
Chief Complaint
-
Nausea and vomiting last night
History of Present Illness
84 years old male came in from home. Patient accompanied by his who provided most of the history. Patient started to have signs of weakness during walking was noticed by his yesterday. He did not have abdominal pain or fever.
Overnight, he started to have nausea and vomiting without significant abdominal pain. In the ER, he did not have fever or leukocytosis. CAT scan of the abdomen pelvis showed acute diverticulitis. No similar episode before. Patient does have
history of constipation but not recently noticed by his . In the ER, he denied abdominal pain.
Medical History
Past Medical History
Past Medical History: Reports Other (Asthma, history of lung cancer, gait dysfunction, seizure disorder, pancytopenia, cervical spine compression, pulmonary hypertension, pulmonary nodules, history of pleural effusion, chronic anemia, history of
hypoxic respiratory failure, obstructive sleep apnea, history of melanoma.)
Past Surgical History: Reports Other (no recent major surgery )
Social History
Tobacco: Non-smoker
Alcohol: None
Drug: None
Personal:
Living: With Family
Employment: Retired
Family History
Family History: Not pertinent
Allergies / Home Medications
Allergies reflects when Allergies were last updated in [facility].
Home Medications with original date entered in [facility]
Allergy/Medication List:
Allergies
Allergy/AdvReac Type Severity Reaction Status Date / Time
hydralazine Allergy Unknown Verified 07/15/24 08:02
pollen extracts Allergy nasal Verified 07/15/24 08:02
symptoms
Home Medications
minoxidil 10 mg tablet 10 mg PO BID Blood Pressure 01/22/23
cyanocobalamin (vitamin B-12) 1,000 mcg tablet 1,000 mcg PO DAILY Supplement 10/17/23
furosemide 40 mg tablet 40 mg PO DAILY Fluid Retention/Swelling 10/17/23
pantoprazole 40 mg tablet,delayed release 40 mg PO DAILY Gastrointestinal Issue 10/17/23
polyethylene glycol 3350 17 gram oral powder packet (HealthyLax) 17 g PO DAILYPRN PRN constipation 10/17/23
warfarin 1 mg tablet 5.5 mg PO QPM Blood Clot Prevention/Tx 10/17/23
cenobamate 200 mg tablet (Xcopri) 200 mg PO QPM Seizures 05/27/24
clonidine 0.2 mg/24 hr weekly transdermal patch 0.2 mg transdermal WE Blood Pressure 30 days #4 ea 05/29/24
amlodipine 2.5 mg tablet 2.5 mg PO DAILY Blood Pressure 07/15/24
carbamazepine 200 mg tablet,extended release,12 hr 400 mg PO BID Seizures 07/15/24
levetiracetam 500 mg tablet 1,750 mg PO BID seizures 07/15/24
lorazepam 1 mg tablet 1 mg PO Q6HPRN PRN anxiety 07/15/24
ascorbic acid (vitamin C) 100 mg tablet (Vitamin C) 100 mg PO QPM 10/24/24
silodosin 8 mg capsule 8 mg PO QPM 10/24/24
Review of Systems
-
History Source: Patient
A 12 point ROS was completed and negative except as noted: Yes
Constitutional: Denies Fever
EENT: Denies Sore Throat
Respiratory: Denies Cough
Cardiac: Denies Chest Pain
Abdomen/GI: Denies Abdominal Pain, Nausea or Vomiting
: Denies Dysuria
Musculoskeletal: Denies Joint Pain
Skin: Denies Rash
Neurological: Denies Numbness
Endocrine: Denies Temp Intolerance
Hematologic/Lymphatic: Denies Bruising
Psych: Denies Panic Disorder
Physical Exam
Vital Signs
Vital Signs
Temp Pulse Resp BP Pulse Ox
98.1 F 69 15 130/54 94
10/24/24 06:20 10/24/24 07:00 10/24/24 07:00 10/24/24 07:00 10/24/24 06:45
Physical Exam
General: No Apparent Distress
HEENT: Moist mucous membranes and Atraumatic
Respiratory: No Wheezes
Cardiac: No Regular Rhythm
GI: No Soft or Non Tender
Rectal: No Maroon Stools
Genito-urinary: No No costovertebral tender or Bowden
Musculoskeletal: No No Clubbing, No Cyanosis or No Edema
Skin: No Jaundice
Neuro: No Awake or Nonfocal/grossly intact
Psych: Calm; No Agitated
Laboratory Results
-
10/24/24 06:32
10/24/24 06:32
Laboratory Results
Total Bilirubin 0.6 mg/dl (0.2-1.3) 10/24/24 06:32
AST 20 U/L (17-59) 10/24/24 06:32
ALT 16 U/L (0-50) 10/24/24 06:32
Alkaline Phosphatase 93 U/L (38-126) 10/24/24 06:32
Impression/Plan
-
84 years old male presented with nausea and vomiting and was found to have acute diverticulitis
# Acute diverticulitis of the distal descending and sigmoid colon, no evidence of perforation or abscess
Seems new onset per . No history of diverticulitis in the past. No history of recent colonoscopy. reported that patient was on hospice 3 years ago and he is currently on regular care. No recent intervention. History of constipation but
not recently.
No history of colonoscopy in recent 5 years
Upon examination, patient felt mild abdominal discomfort on percussion, left-sided of the abdomen but no guarding no rebound tenderness.
Will do bowel rest with clear liquid
IV antibiotic
IV Zofran for nausea
IV morphine for moderate to severe pain, oral Tylenol for mild to moderate pain
Consult gastroenterology, input appreciated
# History of chronic pulmonary hypertension/ Chronic HFrEF
08/25/[id number] LV size. EF 45 to 50%. Reduced RV systolic function. Severely dilated LA. Moderately dilated RA. Mild MR. Mild to moderate AAS. Severe TR. Pulmonary artery pressure 60 to 65 mmHg.
No history of shortness of breath. No changes intended
# Paroxysmal atrial fibrillation, warfarin anticoagulation
Check PT/INR
No history of palpitation
# History of gait dysfunction. CAT scan of the head no acute abnormality.
Eventual PT/OT evaluation. Patient uses wheelchair a stair lift at home
# Primary hypertension-continue clonidine patch, minoxidil and Norvasc
# Seizures-continue Xcopri, Keppra, carbamazepine.
# GERD-continue PPI
# Chronic anemia-
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
# Ambulatory dysfunction
# Dementia
# Sleep apnea- states that patient lost weight and had seen Dr. Pace. He does not need to use CPAP anymore.
# DVT prophylaxis-elevated INR
# CODE STATUS- Full code
Total time spent to see the patient, examine the patient, review data and lab results, discuss treatment plan with patient, , ER doctor, nursing staff around 75 minutes
[2024-10-24] MEDS: ZOSYN 50 IV (09:33)
[2024-10-24 09:46] LABS: Urine Bacteria Few (Negative); Urine White Cell 26-30 /HPF (0-5)
[2024-10-24 10:52] LABS: INR 3.17; PT 32.8 Sec (11.4-14.6)
--- NOTE | 2024-10-24 15:15 | CON.GI ---
Addendum entered and electronically signed by Geno Omer MD 10/24/24 18:03:
The patient was seen and examined by me independently in collaboration with the nurse practitioner.
Past medical history/social history/medications/allergies/family history reviewed.
Lab data and imaging data reviewed.
84-year-old male past medical history of A-fib on Coumadin, lung cancer presenting with nausea and weakness found to have diverticulitis on CT scan. He now feels well and has no complaints. Trial of low residue diet. Antibiotics are being held,
in the setting of mild diverticulitis antibiotics not always needed. I discussed with him colonoscopy recommendations after diverticulitis however given his past hospice stents 3 years ago unclear if this aligns with his goals of care. We
discussed the goal of the colonoscopy would be to look for colon cancer and if he would want surgery or chemotherapy which he thinks he would want to be aggressive and his is less certain. Also, if he were to pursue colonoscopy will need to
hold Coumadin and get the INR to be less than 1.5. Virtual colonoscopy may be a good option currently not functioning [place] prep perhaps we can bring him to another facility if he does wish to pursue further testing. He wishes to consider his
options. I will set him up for an outpatient GI appointment in about 1 month to rediscuss colonoscopy versus virtual colonoscopy versus not pursuing any further testing. At this juncture, GI will sign off. Please call with any questions or issues.
Original Note:
Consultation
-
Date/Time Consultation Requested: 10/24/24 1330
Date/Time Consultation Performed: 10/24/24 1515
Requesting Provider: Paty Cruz MD
Performing Provider: ANNE Mueller, Tashia Omer MD
Reason for Consultation: diverticulitis, nausea, vomiting
Medical History
Chief Complaint / HPI
Chief Complaint: nausea/vomiting/weakness
History of Present Illness:
Pt is a 84yo with hx afib on Coumadin, lung CA, CVA, asthma, CHF, HTN, hyperlipidemia, prior seizures, pulm HTN, pleural effusion, anemia, pancytopenia with illness 3 years with multiple medical issues and eventual hospice about 3 years ago. He
did recover and was doing well. He had EGD in 2023 with admission with vomiting blood and noted with food in stomach and GERD but no etiology for bleeding. He has been doing well and now noted with onset of severe weakness then vomiting
orange-yellow emesis and presents to hospital for evaluation. On admission noted with hbg 10.9, BUN 27 with otherwise stable labs. CT completed with concern for acute diverticulitis distal descending/sigmoid without perforation or abscess also
noted cystis.
In review with patient and no chronic issues with nausea and vomiting. He has some constipation with use of miralax PRN with reports of stools every other day with straining with BM's. No dysphagia, odynophagia, GERD, hematemesis,
abdominal pain, diarrhea, blood or black in stools. Hx EGD 09/2023. Irreg Z line, erythema, med amount of food in stomach, normal duodenum. colon 2016 - diverticulosis sigmoid and descending, adenomatous and HP polyps.
Past Medical History
Past Medical History: Arrhythmias (afib on coumadin), Asthma, Cancer (lung CA, melanoma ), CHF, CVA, HTN, Hypercholesterolemia, Seizures, Psychiatric (dementia ) and Other (COREY, c-pap at night, meningitis, pleural effusion, anemia, sleep apnea, gait
dysfunction, pancytopenia, colon polyps)
Past Surgical History: Tonsilectomy and Other (lobectomy/uvulectomy)
Social History
Tobacco: Non-Smoker
Alcohol: None
Drug: None
Personal:
Living: With Family
Employment: Retired
Family History
Family History: Other (sister with cancer unsure of type)
Allergies / Home Medications
Allergy/AdvReac Type Severity Reaction Status Date / Time
hydralazine Allergy Unknown Verified 07/15/24 08:02
pollen extracts Allergy nasal Verified 07/15/24 08:02
symptoms
�Medication �Instructions �Recorded
minoxidil 10 mg tablet 10 mg PO BID Blood Pressure 01/22/23
cyanocobalamin (vitamin B-12) 1,000 mcg PO DAILY Supplement 10/17/23
1,000 mcg tablet
furosemide 40 mg tablet 40 mg PO DAILY Fluid 10/17/23
Retention/Swelling
pantoprazole 40 mg tablet,delayed 40 mg PO DAILY Gastrointestinal 10/17/23
release Issue
polyethylene glycol 3350 17 gram 17 g PO DAILYPRN PRN constipation 10/17/23
oral powder packet (HealthyLax)
warfarin 1 mg tablet 5.5 mg PO QPM Blood Clot 10/17/23
Prevention/Tx
cenobamate 200 mg tablet (Xcopri) 200 mg PO QPM Seizures 05/27/24
clonidine 0.2 mg/24 hr weekly 0.2 mg transdermal WE Blood 05/29/24
transdermal patch Pressure 30 days #4 ea
amlodipine 2.5 mg tablet 2.5 mg PO DAILY Blood Pressure 07/15/24
carbamazepine 200 mg 400 mg PO BID Seizures 07/15/24
tablet,extended release,12 hr
levetiracetam 500 mg tablet 1,750 mg PO BID seizures 07/15/24
lorazepam 1 mg tablet 1 mg PO Q6HPRN PRN anxiety 07/15/24
ascorbic acid (vitamin C) 100 mg 100 mg PO QPM 10/24/24
tablet (Vitamin C)
silodosin 8 mg capsule 8 mg PO QPM 10/24/24
Review of Systems
-
History Source: Patient and Family
Constitutional: Reports Weight Loss ( over time-- pt with fluid overload with illness then wt loss as improved )
EENT: Reports No Symptoms
Respiratory: Reports No Symptoms
Abdomen/GI: Reports Nausea, Vomiting and Constipated
: Reports No Symptoms
Musculoskeletal: Reports No Symptoms
Skin: Reports No Symptoms
Neurological: Reports Weakness
Endocrine: Reports No Symptoms
Hematologic/Lymphatic: Reports No Symptoms
Vital Signs
Temp Pulse Resp BP Pulse Ox
98.1 F 63 12 114/53 95
10/24/24 06:20 10/24/24 14:45 10/24/24 14:45 10/24/24 14:00 10/24/24 14:45
Physical Exam
Exam
General: Well Developed, Well Nourished and No Apparent Distress
HEENT: Normocephalic and Anicteric
Respiratory: Clear
Cardiac: Regular Rhythm
GI: Soft, Non Tender and Non Distended
Musculoskeletal: No Clubbing and No Cyanosis
Skin: Warm and Dry
Neuro: Awake, Alert and AO x 3
Psych: Calm
Results
WBC 9.1 10^3/uL (4.8-10.8) 10/24/24 06:32
Hgb 10.9 g/dL (13.0-18.0) L 10/24/24 06:32
Hct 31.6 % (39.0-52.0) L 10/24/24 06:32
MCV 97.5 fL (80.0-94.0) H 10/24/24 06:32
Plt Count 210 10^3/uL (130-400) 10/24/24 06:32
Absolute Neuts (auto) 7.5 10^3/uL (1.4-6.5) H 10/24/24 06:32
PT 32.8 Sec (11.4-14.6) H 10/24/24 10:29
INR 3.17 10/24/24 10:29
Sodium 140 mmol/L (135-145) 10/24/24 06:32
Potassium 4.1 mmol/L (3.5-5.1) 10/24/24 06:32
Chloride 100 mmol/L (98-107) 10/24/24 06:32
Carbon Dioxide 32 mmol/L (22-30) H 10/24/24 06:32
BUN 27 mg/dl (9-20) H 10/24/24 06:32
Creatinine 1.1 mg/dL (0.7-1.3) 10/24/24 06:32
Calcium 9.3 mg/dl (8.4-10.2) 10/24/24 06:32
Total Bilirubin 0.6 mg/dl (0.2-1.3) 10/24/24 06:32
AST 20 U/L (17-59) 10/24/24 06:32
ALT 16 U/L (0-50) 10/24/24 06:32
Alkaline Phosphatase 93 U/L (38-126) 10/24/24 06:32
Diagnostic Image Results:
CT Abd/pelvis W Iv Cont
Acute diverticulitis along the distal descending/proximal sigmoid colon. There is no evidence of perforation or pericolonic abscess.
There is mild circumferential wall thickening of the urinary bladder which can be seen with cystitis. Recommend correlation with urinalysis.
Prior GI Procedures:
EGD: 10/13/23 [facility] - Z-line irregular, at the gastroesophageal junction.
Biopsied.
- Erythematous mucosa in the antrum. Biopsied.
- A medium amount of food (residue) in the stomach.
- Normal examined duodenum. Biopsied.
Colonoscopy: 2015- � � � - Perianal skin tags found on perianal exam.
�� � � � � � � � � � - Diverticulosis in the sigmoid colon and in the
�� � � � � � � � � � descending colon.
�� � � � � � � � � � - Four 6 to 9 mm polyps in the sigmoid colon, in the
�� � � � � � � � � � transverse colon and in the ascending colon. Resected
�� � � � � � � � � � and retrieved.
�� � � � � � � � � � - The distal rectum and anal verge are normal on
�� � � � � � � � � � retroflexion view.
bx Adenomatous and HP polyps
Assessment / Plan
-
Pt is a 84yo with hx afib on Coumadin, lung CA, CVA, asthma, CHF, HTN, hyperlipidemia, prior seizures, pulm HTN, pleural effusion, anemia, pancytopenia with illness 3 years with multiple medical issues and eventual hospice about 3 years ago. He
did recover and was doing well. He had EGD in 2023 with admission with vomiting blood and noted with food in stomach and GERD but no etiology for bleeding. He has been doing well and now noted with onset of severe weakness then vomiting
orange-yellow emesis and presents to hospital for evaluation. On admission noted with hbg 10.9, BUN 27 with otherwise stable labs. CT completed with concern for acute diverticulitis distal descending/sigmoid without perforation or abscess also
noted cystis.
-onset of weakness with nausea and vomiting
-diverticulitis on CT on admission
-chronic constipation
-cystitis on imaging
-mild anemia with hx pancytopenia
-afib on Coumadin
other medical problems:
-hx adenomatous and hyperplastic colon polyps
-seizure disorder
-asthma
-lung CA with lobectomy
-CKD
-cognitive decline
PLAN:
Etiology of nausea/vomiting and weakness unclear
currently feeling improved without further vomiting
agree with trial of clear diet
clinically no abdominal pain, fever or WBC elevation no signs of diverticulitis agree with holding antibiotics
discussed with patient and adding Miralax daily with hx constipation and straining -- currently using as needed
if continued improvement and stable labs consider discharge in AM
-
-
Thank you for consultation and allowing me to participate in the patient's care. Please call the economics analyst GI physician during the after hours with any questions or concerns.
--- NOTE | 2024-10-24 16:07 | PTCARENOTE ---
Received patient from ED via stretcher. Pt AAOX3. Forgetful at times. Bed alarm on. Patient denies abdominal pain, nausea or vomiting. at bedside. Call [facility] within reach. Plan of care ongoing.
[2024-10-24] MEDS: FLOMAX 0.4 MG PO (17:07)
[2024-10-24] MEDS: NON-FORMULARY ITEM 1 UNIT PO (20:25)
[2024-10-24] MEDS: LONITEN 10 MG PO (20:26)
[2024-10-24] MEDS: KEPPRA 1500 MG PO (20:26)
[2024-10-24] MEDS: TEGRETOL XR (EXTENDED RELEASE) 400 MG PO (20:27)
[2024-10-24] MEDS: KEPPRA 250 MG PO (20:27)
[2024-10-25 07:00] VITALS: BP 124/57
[2024-10-25] MEDS: ZOSYN 50 IV ×3 (08:53→19:10)
[2024-10-25] MEDS: KEPPRA 250 MG PO ×2 (08:56→19:09)
[2024-10-25] MEDS: TEGRETOL XR (EXTENDED RELEASE) 400 MG PO ×2 (08:56→19:10)
[2024-10-25] MEDS: KEPPRA 1500 MG PO ×2 (08:56→19:09)
[2024-10-25] MEDS: NORVASC 2.5 MG PO (08:56)
[2024-10-25] MEDS: LONITEN 10 MG PO ×2 (08:56→19:10)
[2024-10-25] MEDS: PROTONIX 40 MG PO (08:56)
[2024-10-25 09:04] LABS: PT 34.1 Sec (11.4-14.6)
--- NOTE | 2024-10-25 09:39 | W.PN.HOSP.TC ---
Addendum entered and electronically signed by Ede Cruz MD 10/25/24 14:17:
Addendum
Urine culture is positive for Enterococcus, cultures not finalized
was concerned about UTI due to previous history of complicated UTI
Will continue current antibiotic and follow with urine culture. She was informed that culture may not be finalized tomorrow or Monday, she verbalized understanding.
End
Total time spent to see the patient, review data and lab result, examine the patient, discuss treatment plan with patient, , nursing staff around 75 minutes
Original Note:
Today's Communication/Plan
-
discharge
Assessment / Plan
Assessment / Plan
Physical Exam
General: No Apparent Distress
HEENT: Moist mucous membranes and Atraumatic
Respiratory: No Wheezes
Cardiac: No Regular Rhythm
GI: No Soft or Non Tender
Rectal: No Maroon Stools
Genito-urinary: No No costovertebral tender or Bowden
Musculoskeletal: No No Clubbing, No Cyanosis or No Edema
Skin: No Jaundice
Neuro: No Awake or Nonfocal/grossly intact
Psych: Calm; No Agitated
84 years old male presented with nausea and vomiting and was found to have acute diverticulitis
# Acute diverticulitis of the distal descending and sigmoid colon, no evidence of perforation or abscess
Seems mild
No abdominal pain
Tolerating diet
No abdominal tenderness on exam
Consult gastroenterology, input appreciated, ok to dc and f/w in office
# History of chronic pulmonary hypertension/ Chronic HFrEF
08/25/[id number] LV size. EF 45 to 50%. Reduced RV systolic function. Severely dilated LA. Moderately dilated RA. Mild MR. Mild to moderate AAS. Severe TR. Pulmonary artery pressure 60 to 65 mmHg.
No history of shortness of breath. No changes intended
# Paroxysmal atrial fibrillation, warfarin anticoagulation
Check PT/INR
No history of palpitation
# History of gait dysfunction. CAT scan of the head no acute abnormality.
Eventual PT/OT evaluation. Patient uses wheelchair a stair lift at home
# Primary hypertension-continue clonidine patch, minoxidil and Norvasc
# Seizures-continue Xcopri, Keppra, carbamazepine.
# GERD-continue PPI
# Chronic anemia-
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
# Ambulatory dysfunction
# Dementia
# Sleep apnea- states that patient lost weight and had seen Dr. Pace. He does not need to use CPAP anymore.
# DVT prophylaxis-elevated INR
# CODE STATUS- Full code
Total discharge time spent to see the patient, examine the patient, review data and lab results, discuss discharge plan with patient, nursing staff around 65 minutes
Anticipated Discharge: Today
Subjective/Interval History
-
Date of Service: October 25, 2024
No chest pain
No sob
No abdominal pain
Objective Data
-
Labs:
Laboratory Results
10/25/24 10/25/24
06:59 08:47
PT Cancelled 34.1 H
INR Cancelled 3.40
Vital Signs:
Vital Signs
Temp Pulse Resp BP Pulse Ox
98.6 F 61 16 124/57 97
10/25/24 07:00 10/25/24 08:56 10/25/24 07:00 10/25/24 08:56 10/25/24 07:00
I&O
10/24/24 10/25/24 10/26/24
06:59 06:59 06:59
Intake Total 1200 / 1200
Output Total 500 / 500
Balance 700 / 700
[2024-10-25 10:30] VITALS: BP 129/61; PULSE 59; O2SAT 97
[2024-10-25] MEDS: MIRALAX 17 GRAMS PO (11:06)
[2024-10-25 11:29] VITALS: BP 129/61; PULSE 59; O2SAT 97
--- NOTE | 2024-10-25 14:07 | PN.CDI ---
Addendum entered and electronically signed by Ede Cruz MD 10/25/24 14:16:
Sacral Pressure injury stage 1 ..
Original Note:
CDI
- -
CDI:
Physician Documentation Request
Admit Date: 10/24/24 09:56
Dear Doctor Nancy,
Please review the following and provide your response in the progress notes.
Clinical Indicators:
Pt admitted with Acute diverticulitis sigmoid/descending colon
Documented per nursing wound care note 10/24, ' Presents on admission Sacral Pressure injury stage 1 ...'
Physician documentation of the type and location of wounds is required for compliant documentation. Based on the above clinical findings and your assessment, please provide the following in your progress note:
1. Location of the ulcer/wound, including laterality.
2. Type (etiology) of ulcer/wound:
- Pressure (decubitus) ulcer
- Non-pressure ulcer
- Other ( please specify)
Use of terms such as suspected, likely, concern for, or probable (associated with a specific diagnosis that is being evaluated, monitored, or treated as if it exists) are acceptable and can be coded in the inpatient setting, when documented at the
time of discharge.
Thank you,
Sosa Vu RN
CDI Specialist
[place] [facility]
Please use your independent medical judgment in providing your response.
*Source: National Pressure Ulcer Advisory Panel (NPUAP)
--- NOTE | 2024-10-25 14:08 | CM ---
Patiet seen bedside.
IA completed. IMM completed.
Patient lives with spouse in 2 story home with 1 step to enter.
Patient ambulates with a RW.
patient had VN in the past, does not feel he needs VN on d/c.
Spouse will transport home.
PCP: Dr Robin Garcia
Pharmacy: [facility]
Plan: home no needs.
[2024-10-25 15:00] VITALS: BP 118/52
[2024-10-25] MEDS: FLOMAX 0.4 MG PO (17:15)
[2024-10-25] MEDS: NON-FORMULARY ITEM 1 UNIT PO (19:10)
[2024-10-25 23:43] VITALS: BP 111/54
[2024-10-26] MEDS: ZOSYN 50 IV ×3 (01:20→14:44)
--- NOTE | 2024-10-26 07:00 | W.PN.HOSP.TC ---
Today's Communication/Plan
-
Continue antibiotics, await urine culture sensitivities
Coumadin on hold b/c supratherapeutic INR, monitor INR and resume when appropiate
Assessment / Plan
Assessment / Plan
Physical Exam
General: No Apparent Distress
HEENT: Moist mucous membranes and Atraumatic
Respiratory: Clear to Auscultation Bilaterally
Cardiac: S1 and S2. RRR.
GI: Soft. Nontender, Positive Bowel Sounds
Musculoskeletal: No Cyanosis. No Edema
Skin: Warm. Dry.
Neuro: AAOx3. Nonfocal/grossly intact.
Psych: Calm
Assessment/Plan
84 years old male presented with nausea and vomiting and was found to have acute diverticulitis.
# Acute diverticulitis of the distal descending and sigmoid colon, no evidence of perforation or abscess
Seems mild
No abdominal pain
Tolerating diet
No abdominal tenderness on exam
Consult gastroenterology, input appreciated, ok to dc and f/w in office
Continue Zosyn
#Concern for UTI
-Urine cultures growing Enterococcus, sensitivities pending
-Continue Zosyn
# History of chronic pulmonary hypertension/ Chronic HFrEF
08/25/[id number] LV size. EF 45 to 50%. Reduced RV systolic function. Severely dilated LA. Moderately dilated RA. Mild MR. Mild to moderate AAS. Severe TR. Pulmonary artery pressure 60 to 65 mmHg.
No history of shortness of breath. No changes intended
# Paroxysmal atrial fibrillation, warfarin anticoagulation
# Supraptherapeutic INR
Hold Coumadin
Monitor INR
No history of palpitation
# History of gait dysfunction. CAT scan of the head no acute abnormality.
Eventual PT/OT evaluation. Patient uses wheelchair a stair lift at home
# Primary hypertension-continue clonidine patch, minoxidil and Norvasc
# Seizures-continue Xcopri, Keppra, carbamazepine.
# GERD-continue PPI
# Chronic anemia-
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
# Ambulatory dysfunction
# Dementia
# Sleep apnea- states that patient lost weight and had seen Dr. Pace. He does not need to use CPAP anymore.
# DVT prophylaxis-Supratherapeutic INR
# CODE STATUS- Full code
Anticipated Discharge: 24 - 48 hours
Subjective/Interval History
-
Date of Service: October 26, 2024
Patient was seen and examined. He denied any chest pain, shortness of breath, abdominal pain or any other symptoms or complaints.
Objective Data
-
Labs:
Laboratory Results
10/26/24
06:19
WBC Pending
Hgb Pending
Hct Pending
Plt Count Pending
Sodium Pending
Potassium Pending
Chloride Pending
Carbon Dioxide Pending
BUN Pending
Creatinine Pending
Glucose Pending
Calcium Pending
Total Bilirubin Pending
AST Pending
ALT Pending
Alkaline Phosphatase Pending
Vital Signs:
Vital Signs
Temp Pulse Resp BP Pulse Ox
98.3 F 66 14 111/54 98
10/25/24 23:43 10/25/24 23:43 10/25/24 23:43 10/25/24 23:43 10/25/24 23:43
I&O
10/25/24 10/26/24 10/27/24
06:59 06:59 06:59
Intake Total 1200 / 1200 1420 / 1420
Output Total 500 / 500 850 / 850
Balance 700 / 700 570 / 570
[2024-10-26 07:11] LABS: Hematocrit 26.3 % (39.0-52.0); Hemoglobin 9.3 g/dL (13.0-18.0); Mean Corp Hgb Conc. 35.4 g/dL (33.0-37.0); Mean Corpuscular Hgb 34.7 pg (27.0-31.0); Mean Corpuscular Volume 98.1 fL (80.0-94.0); Mean Platelet Volume 9.9 fL (7.4-10.4); Platelet Count 195 10^3/uL (130-400); Red Blood Cell Count 2.68 10^6/uL (4.70-6.10); Red Cell Dist. Width 11.9 % (11.5-14.5); White Blood Cell Count 6.6 10^3/uL (4.8-10.8)
[2024-10-26 07:31] LABS: ALT (SGPT) 17 U/L (0-50); AST (SGOT) 21 U/L (17-59); Albumin 3.5 g/dl (3.5-5.0); Alkaline Phosphatase 62 U/L (38-126); Blood Urea Nitrogen 28 mg/dl (9-20); Calcium 8.7 mg/dl (8.4-10.2); Carbon Dioxide 31 mmol/L (22-30); Chloride 101 mmol/L (98-107); Estimated Creatinine Clearance 49 ml/min; Glucose 99 mg/dl (70-99); Potassium 4.2 mmol/L (3.5-5.1); Sodium 140 mmol/L (135-145); Total Bilirubin 0.5 mg/dl (0.2-1.3); Total Protein 6.2 g/dl (6.3-8.2); eGFR > 60.00
[2024-10-26 08:11] VITALS: BP 149/70
[2024-10-26] MEDS: KEPPRA 1500 MG PO ×2 (09:13→19:42)
[2024-10-26] MEDS: LONITEN 10 MG PO ×2 (09:14→19:38)
[2024-10-26] MEDS: KEPPRA 250 MG PO ×2 (09:14→19:42)
[2024-10-26] MEDS: PROTONIX 40 MG PO (09:15)
[2024-10-26] MEDS: TEGRETOL XR (EXTENDED RELEASE) 400 MG PO ×2 (09:15→19:42)
[2024-10-26] MEDS: MIRALAX 17 GRAMS PO (09:15)
[2024-10-26] MEDS: NORVASC 2.5 MG PO (09:15)
[2024-10-26 13:25] LABS: INR 1.97; PT 22.6 Sec (11.4-14.6)
[2024-10-26] MEDS: SENOKOT-S 1 TABLET PO ×2 (13:43→19:42)
[2024-10-26 15:44] VITALS: BP 165/84
--- NOTE | 2024-10-26 15:48 | W.PN.UPDATE ---
Update Note
Progress Note Update
Patient's urine culture showed Enterococcus faecalis, pansensitive.
Given patient has diverticulitis, and given the urine culture sensitivities, started Augmentin 875 mg Q8H.
Patient's INR is now slightly subtherapeutic -- resumed patient's home Coumadin.
I ordered Senokot-S in addition to the already ordered Miralax for constipation.
I spoke with patient's over the phone with the above updates, and she requested that I discharge patient tomorrow morning, given his constipation.
[2024-10-26] MEDS: AUGMENTIN 875 MG/125 MG 1 TABLET PO ×2 (17:10→23:00)
[2024-10-26] MEDS: COUMADIN 3 MG PO (17:11)
[2024-10-26] MEDS: COUMADIN 2.5 MG PO (17:12)
[2024-10-26] MEDS: FLOMAX 0.4 MG PO (17:13)
[2024-10-26] MEDS: NON-FORMULARY ITEM 1 UNIT PO (20:02)
[2024-10-26 23:57] VITALS: BP 128/56
[2024-10-27 06:40] LABS: Hematocrit 25.4 % (39.0-52.0); Hemoglobin 8.7 g/dL (13.0-18.0); Mean Corp Hgb Conc. 34.3 g/dL (33.0-37.0); Mean Corpuscular Hgb 33.6 pg (27.0-31.0); Mean Corpuscular Volume 98.1 fL (80.0-94.0); Mean Platelet Volume 9.9 fL (7.4-10.4); Platelet Count 203 10^3/uL (130-400); Red Blood Cell Count 2.59 10^6/uL (4.70-6.10); Red Cell Dist. Width 11.9 % (11.5-14.5); White Blood Cell Count 7.4 10^3/uL (4.8-10.8)
[2024-10-27 06:50] LABS: INR 1.92; PT 22.1 Sec (11.4-14.6)
[2024-10-27 07:00] VITALS: BP 131/63
[2024-10-27 07:07] LABS: Blood Urea Nitrogen 23 mg/dl (9-20); Calcium 8.9 mg/dl (8.4-10.2); Carbon Dioxide 33 mmol/L (22-30); Chloride 104 mmol/L (98-107); Estimated Creatinine Clearance 54 ml/min; Glucose 98 mg/dl (70-99); Potassium 4.2 mmol/L (3.5-5.1); Sodium 141 mmol/L (135-145); eGFR > 60.00
[2024-10-27] MEDS: NORVASC 2.5 MG PO (08:55)
[2024-10-27] MEDS: PROTONIX 40 MG PO (08:55)
[2024-10-27] MEDS: TEGRETOL XR (EXTENDED RELEASE) 400 MG PO (08:55)
[2024-10-27] MEDS: KEPPRA 250 MG PO (08:56)
[2024-10-27] MEDS: LONITEN 10 MG PO (08:56)
[2024-10-27] MEDS: SENOKOT-S 1 TABLET PO (08:56)
[2024-10-27] MEDS: KEPPRA 1500 MG PO (08:56)
[2024-10-27] MEDS: AUGMENTIN 875 MG/125 MG 1 TABLET PO (08:56)
[2024-10-27] MEDS: MIRALAX 17 GRAMS PO (08:57)
--- NOTE | 2024-10-27 09:26 | W.PN.HOSP.TC ---
Today's Communication/Plan
-
dc
Assessment / Plan
Assessment / Plan
Physical Exam
General: No Apparent Distress
HEENT: Moist mucous membranes and Atraumatic
Respiratory: Clear to Auscultation Bilaterally
Cardiac: S1 and S2. RRR.
GI: Soft. Nontender, Positive Bowel Sounds
Musculoskeletal: No Cyanosis. No Edema
Skin: Warm. Dry.
Neuro: AAOx3. Nonfocal/grossly intact.
Psych: Calm
Assessment/Plan
84 years old male presented with nausea and vomiting and was found to have acute diverticulitis.
# Acute diverticulitis of the distal descending and sigmoid colon, no evidence of perforation or abscess
Seems mild and resolved
No abd tenderness, no nausea
No abdominal pain
Tolerating diet
No abdominal tenderness on exam
Consult gastroenterology, input appreciated, ok to dc and f/w in office
s/p Zosyn
started on oral Augmentin
#UTI
-Urine cultures growing modi sensitive Enterococcus,
-s/p Zosyn, now on Augmentin. No dysuria or confusion
# History of chronic pulmonary hypertension/ Chronic HFrEF
08/25/[id number] LV size. EF 45 to 50%. Reduced RV systolic function. Severely dilated LA. Moderately dilated RA. Mild MR. Mild to moderate AAS. Severe TR. Pulmonary artery pressure 60 to 65 mmHg.
No history of shortness of breath. No changes intended
# Paroxysmal atrial fibrillation, warfarin anticoagulation
# Supratherapeutic INR
Held Coumadin
Monitor INR, now INR 1.9
No history of palpitation
# Constipation, resolved
# History of gait dysfunction. CAT scan of the head no acute abnormality.
Eventual PT/OT evaluation. Patient uses wheelchair a stair lift at home
# Primary hypertension-continue clonidine patch, minoxidil and Norvasc
# Seizures-continue Xcopri, Keppra, carbamazepine.
# GERD-continue PPI
# Chronic anemia-
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
# Ambulatory dysfunction
# Dementia
# Sleep apnea- states that patient lost weight and had seen Dr. Pace. He does not need to use CPAP anymore.
# DVT prophylaxis-Supratherapeutic INR
# CODE STATUS- Full code
total time spent to see the patient, examine the pt, review data and lab results, discuss dc plan with pt, , nursing staff around 65 minutes
Anticipated Discharge: Today
Subjective/Interval History
-
Date of Service: October 27, 2024
he feels better
He had BM
No abd pain
Wants to go home
Objective Data
-
Labs:
Laboratory Results
10/27/24
06:31
WBC 7.4
Hgb 8.7 L
Hct 25.4 L
Plt Count 203
PT 22.1 H
INR 1.92
Sodium 141
Potassium 4.2
Chloride 104
Carbon Dioxide 33 H
BUN 23 H
Creatinine 1.0
Glucose 98
Calcium 8.9
Vital Signs:
Vital Signs
Temp Pulse Resp BP Pulse Ox
97.6 F 65 18 131/63 99
10/27/24 07:00 10/27/24 08:56 10/27/24 07:00 10/27/24 08:56 10/27/24 07:00
I&O
10/26/24 10/27/24 10/28/24
06:59 06:59 06:59
Intake Total 1420 / 1420 1300 / 1300
Output Total 850 / 850 1200 / 1200
Balance 570 / 570 100 / 100
--- NOTE | 2024-10-27 09:31 | W.DCSUMMARY ---
Discharge Summary
Discharge Data
Date of Admission: 10/24/24
Date of Discharge: 10/27/24
-
Pending Results: No
Hospital Course
84 years old male presented with nausea and vomiting. He did not have fever or leukocytosis. CAT scan of the abdomen and pelvis showed acute diverticulitis along the distal descending proximal sigmoid colon without perforation or abscess
formation. Patient was admitted to the hospital. He was seen by GI doctor. He received IV antibiotic with good response. He did not have abdominal pain or tenderness. He was able to tolerate diet. Urine culture showed pansensitive Enterococcus
infection. He was maintained on antibiotic to treat both diverticulitis and urinary tract infection. He had constipation was given laxative with good output. Patient remained hemodynamically stable and was discharged home in a stable condition.
Discharge Plan
-
Patient Disposition: Home with Home Care
Discharge Diagnosis/Procedures: Acute Diverticulitis
UTI
Diet: As tolerated
Referrals:
Geno Omer MD [Active] - in one month
UNKNOWN - PT DOES,NOT KNOW [Family Provider] -
Prescriptions:
New
amoxicillin-pot clavulanate 875-125 mg Tablet
1 tab PO BID Qty: 22 0RF
Continued
minoxidil 10 mg Tablet
10 mg PO BID
furosemide 40 mg Tablet
40 mg PO DAILY
warfarin 1 mg Tablet
5.5 mg PO QPM
polyethylene glycol 3350 [HealthyLax] 17 gram powder in packet
17 g PO DAILYPRN PRN (Reason: constipation)
cyanocobalamin (vitamin B-12) 1,000 mcg tablet
1,000 mcg PO DAILY
pantoprazole 40 mg tablet,delayed release (DR/EC)
40 mg PO DAILY
Xcopri 200 mg Tablet
200 mg PO QPM
clonidine 0.2 mg/24 hr patch weekly
0.2 mg transdermal WE 30 Days Qty: 4 0RF
amlodipine 2.5 mg Tablet
2.5 mg PO DAILY
carbamazepine 200 mg tablet extended release 12 hr
400 mg PO BID
levetiracetam 500 mg tablet
1,750 mg PO BID
lorazepam 1 mg tablet
1 mg PO Q6HPRN PRN (Reason: anxiety)
Vitamin C 100 mg Tablet
100 mg PO QPM
silodosin 8 mg Capsule
8 mg PO QPM
Discharge Orders:
Discharge Patient (As Directed); Ordered 10/27/24
Ordered By: Ede Cruz
Discharge Date and Time
Print Language: CZECH
--- NOTE | 2024-10-27 10:29 | CM ---
Patient for d/c today.
Met w/ patient bedside, agreeable to d/c. Spouse will transport home
IMM verbally reviewed, patient given copy, copy placed on chart
Patient declined any HC needs.
Plan: Home; no needs
[2024-10-27 11:00] VITALS: BP 137/88
== END 2024-10-27 12:27 | disposition home or self-care (01) | DRG 392 ==
LOC: 4 EAST ACU 09:56
PROVIDERS: Hospitalist; ADMITTING PHYSICIAN Internal Medicine; CONSULT PHYSICIAN Internal Medicine Gastroenterology; EMERGENCY PHYSICIAN Student in an Organized Health Care Education/Training Program
DX: K57.32 Diverticulitis of large intestine without perforation or abscess without bleeding (principal); I50.22 Chronic systolic (congestive) heart failure; F03.94 Unspecified dementia, unspecified severity, with anxiety; E78.00 Pure hypercholesterolemia, unspecified; I48.0 Paroxysmal atrial fibrillation; I11.0 Hypertensive heart disease with heart failure; K21.9 Gastro-esophageal reflux disease without esophagitis; L89.151 Pressure ulcer of sacral region, stage 1; N30.90 Cystitis, unspecified without hematuria; J45.909 Unspecified asthma, uncomplicated; I27.20 Pulmonary hypertension, unspecified; G40.909 Epilepsy, unspecified, not intractable, without status epilepticus; D64.9 Anemia, unspecified; G47.33 Obstructive sleep apnea (adult) (pediatric); I07.1 Rheumatic tricuspid insufficiency; K59.09 Other constipation; B95.2 Enterococcus as the cause of diseases classified elsewhere; R79.1 Abnormal coagulation profile; Z79.01 Long term (current) use of anticoagulants; Z79.899 Other long term (current) drug therapy; Z86.73 Personal history of transient ischemic attack (TIA), and cerebral infarction without residual deficits; Z85.118 Personal history of other malignant neoplasm of bronchus and lung; Z85.820 Personal history of malignant melanoma of skin; Z11.52 Encounter for screening for COVID-19
CPT/HCPCS: 70450; 74177; 80048; 80053; 81003; 81015; 83735; 85025; 85027; 85610; 87077; 87086; 87186; 87502; 87811; 93005; 96361; 96374; 97116; 97163; 97167; 99285; Q9967

== ENCOUNTER 2024-10-31 17:58 | Emergency (ER) | payer MEDICARE, OTHER, SELFPAY ==
[2024-10-31 18:01] VITALS: BP 145/73; BMI 23.4
[2024-10-31 18:08] VITALS: BP 145/73
--- NOTE | 2024-10-31 18:24 | ED.GENMED ---
History of Present Illness
General
Chief Complaint: Fall
Source: patient
Exam Limitations: none
Time Seen by Provider: 10/31/24 18:24
Nursing documentation reviewed up to this point in time: agreed with
History of Present Illness
History of Present Illness:
84-year-old male presents emergency room after he fell his on the floor at 2:30 PM. He is on Coumadin. He has a history of seizures. He is not remember the fall.
Past History
Past History
ED Past Medical History: Asthma, Cancer (Lung), CHF, CVA, HTN, Hypercholesterolemia, Seizures and Other (COREY, C-pap at night, Meningitis, )
ED Past Surgical History: Tonsilectomy and Other (right lobectomy, Uvulectomy)
Social History
Tobacco: Non-smoker
Alcohol: None
Drug: None
Personal:
Living: with family
Employment: Retired
Family History
Family History: Other (reviewed and Noncontributory)
Review of Systems
Review of Systems
Allergies reviewed?: Yes
All Other Systems: Not applicable
Constitutional: Reports no symptoms
EENT: Reports no symptoms
Respiratory: Reports no symptoms
Cardiac: Reports no symptoms
ABD/GI: Reports no symptoms
: Reports no symptoms
Musculoskeletal: Reports no symptoms
Skin: Reports no symptoms
Neurological: Reports no symptoms
Endocrine: Reports no symptoms
Hematologic/Lymphatic: Reports no symptoms
Psychiatric: Reports no symptoms
Phy Exam
Physical Exam
Physical Exam:
Physical Exam
General: no apparent distress, not acutely ill
Neck: supple. no meningeal signs. normal posterior pharynx
Heart: s1/s2 regular rate and rhythm, no murmur. equal radial
pulses.
HEENT: Pupils equal round reactive to light, EOMI
Lungs: no acute respiratory distress. clear bilaterally
Abdomen: normal bowel sounds. not tender. no CVAT
Neuro: alert and oriented. no focal neurological deficits cranial nerves II through XII intact
Skin: no rash
Psychiatric: well kept. interactive and cooperative
Extremities: no edema. no calf tenderness. negative homans. good distal pulses
Course
Orders/Labs/Results
Orders:
Orders
10/31/24 18:24
Complete Blood Count/With Diff Urgent
10/31/24 18:25
CT Head W/o Iv Contrast Urgent
Comment:
Reason For Exam: fall
EKG- Treatment ONCE
10/31/24 18:26
Electrocardiogram (*1) Urgent
Reason for Study: Fatigue / Weakness
Prothrombin Time Urgent
10/31/24 19:01
Comprehensive Metabolic Panel Urgent
Creatine Phosphokinase Urgent
10/31/24 19:56
Levetiracetam [Keppra] 1,750 mg PO NOW STA
10/31/24 20:09
Carbamazepine Extended Release [Tegretol Xr (Extended Release)] 400 mg PO STAT STA
10/31/24 20:35
Urinalysis Reflex To Culture Urgent
Date Specimen was Collected: 10/31/24
Time Specimen was Collected: 20:32
Urine Microscopic Reflex Cult Urgent
10/31/24 22:22
Amoxicillin 875 mg/Clav 125 mg [Augmentin 875 mg/125 mg] 1 tablet PO NOW STA
Abnormal Lab Results
10/31/24 10/31/24 10/31/24
18:24 18:26 19:01
WBC 13.0 H 10^3/uL
(4.8-10.8)
RBC 2.94 L 10^6/uL
(4.70-6.10)
Hgb 10.2 L g/dL
(13.0-18.0)
Hct 28.7 L %
(39.0-52.0)
MCV 97.6 H fL
(80.0-94.0)
MCH 34.7 H pg
(27.0-31.0)
Abs Immat Gran (auto) 0.1 H 10^3/uL
(0-0.05)
Absolute Neuts (auto) 10.1 H 10^3/uL
(1.4-6.5)
Absolute Monos (auto) 1.6 H 10^3/uL
(0.1-0.6)
Neutrophils % 77.6 H %
(42.2-75.2)
Lymphocytes % 9.6 L %
(20.5-51.1)
Monocytes % 11.9 H %
(1.7-9.3)
PT 24.5 H Sec
(11.4-14.6)
BUN 22 H mg/dl
(9-20)
Glucose 134 H mg/dl
(70-99)
Creatine Kinase 49 L U/L
(55-170)
Urine Bacteria (Reflex)
Urine Albumin (Reflex)
10/31/24
20:35
WBC
RBC
Hgb
Hct
MCV
MCH
Abs Immat Gran (auto)
Absolute Neuts (auto)
Absolute Monos (auto)
Neutrophils %
Lymphocytes %
Monocytes %
PT
BUN
Glucose
Creatine Kinase
Urine Bacteria (Reflex) Few A
(Negative)
Urine Albumin (Reflex) 2+ A
(Neg - Trace)
10/31/24 18:24
10/31/24 19:01
Vital Signs
Initial and Last Documented VS:
Initial Vital Signs
Temp Pulse Resp BP Pulse Ox
99.1 F 83 18 145/73 97
10/31/24 18:01 10/31/24 18:01 10/31/24 18:01 10/31/24 18:01 10/31/24 18:01
Last Documented Vital Signs
Temp Pulse Resp BP Pulse Ox
99.2 F 76 19 126/53 97
10/31/24 20:29 10/31/24 20:15 10/31/24 20:15 10/31/24 20:00 10/31/24 20:15
MDM/Problems Addressed
Differential Diagnosis Includes:
Seizure, intracranial hemorrhage
MDM/Problems Addressed:
84-year-old male with fall, possibly seizure. No signs of intracranial hemorrhage. Stable for discharge.
Chronic conditions affecting care: HTN
*Radiology
Radiology exam reviewed: radiology read reviewed (CT head no acute findings)
*Pulse Oximetry
Patient hypoxic: no
*EKG
Interpreted by ED Provider?: Yes
EKG Intrepretation Date: 10/31/24
EKG Intrepretation Time: 18:41
Interpretation: normal
Comparison EKG: no comparison EKG present
Heart Rate: 83
Rate: normal
Rhythm: sinus
O'Brien: normal axis
Interval: normal interval
QRS Pattern: normal QRS
Ischemia: no ischemia
*[employer] Interpretation
Rate: normal
Interpretation: normal
Heart Rate: 80
Rhythm: sinus
*Critical Care Note
Total Time (30-74mins, 75-104mins- exclusive of procedures): Not Applicable
Patient Management
Social determinants of health affecting care: Living situation and Strong social support
Escalation/DeEscalation of care consider admission/obs:
admit not indicatd
ED Attending Note
-
Portions of this chart may have been created with voice recognition software.� Occasional wrong word or��sound alike� substitutions may have occurred due to the inherent limitations of voice recognition software.
Discharge Plan
Departure
Patient Disposition: Home (Routine Discharge)
Date of Disposition: 10/31/24
Time of Disposition: 22:23
Patient with high blood pressure during this ER visit?: Yes
Condition: Good
Discharge Problem:
Fall
Instructions: Preventing falls in adults, BLOOD PRESSURE
Prescriptions:
No Action
minoxidil 10 mg Tablet
10 mg PO BID
furosemide 40 mg Tablet
40 mg PO DAILY
warfarin 1 mg Tablet
5.5 mg PO QPM
polyethylene glycol 3350 [HealthyLax] 17 gram powder in packet
17 g PO DAILYPRN PRN (Reason: constipation)
cyanocobalamin (vitamin B-12) 1,000 mcg tablet
1,000 mcg PO DAILY
pantoprazole 40 mg tablet,delayed release (DR/EC)
40 mg PO DAILY
Xcopri 200 mg Tablet
200 mg PO QPM
clonidine 0.2 mg/24 hr patch weekly
0.2 mg transdermal WE 30 Days Qty: 4 0RF
amlodipine 2.5 mg Tablet
2.5 mg PO DAILY
carbamazepine 200 mg tablet extended release 12 hr
400 mg PO BID
levetiracetam 500 mg tablet
1,750 mg PO BID
lorazepam 1 mg tablet
1 mg PO Q6HPRN PRN (Reason: anxiety)
Vitamin C 100 mg Tablet
100 mg PO QPM
silodosin 8 mg Capsule
8 mg PO QPM
amoxicillin-pot clavulanate 875-125 mg Tablet
1 tab PO BID Qty: 22 0RF
Referrals:
Robin Garcia MD [Family Provider] - Call in 1-3 days for appt
Interventions
Interventions:
*Risk Screen - Suicide Last Done: 10/31/24 18:12
*General Assessment Last Done: 10/31/24 18:01
*Neglect/Abuse Screening Last Done: 10/31/24 18:01
*ED- Fall Risk Assessment Last Done: 10/31/24 18:01
*ED COVID-19 Vaccine History Last Done: 10/31/24 18:01
ED-Musculoskeletal Assessment Last Done: 10/31/24 19:13
ED- Neurological Assessment Last Done: 10/31/24 19:13
ED-Skin Assessment Last Done: 10/31/24 19:13
Discharge Date and Time
Print Language: PERSIAN
[2024-10-31 18:35] LABS: % Basophils 0.4 % (0-2); % Immature Granulocytes 0.5 % (0-0.5); % Lymphocytes 9.6 % (20.5-51.1); % Monocytes 11.9 % (1.7-9.3); % Neutrophils 77.6 % (42.2-75.2); Absolute Basophils 0.1 10^3/uL (0-0.2); Absolute Immature Granulocytes 0.1 10^3/uL (0-0.05); Absolute Lymphocytes 1.2 10^3/uL (1.2-3.4); Absolute Monocytes 1.6 10^3/uL (0.1-0.6); Absolute Neutrophils 10.1 10^3/uL (1.4-6.5); Hematocrit 28.7 % (39.0-52.0); Hemoglobin 10.2 g/dL (13.0-18.0); Mean Corp Hgb Conc. 35.5 g/dL (33.0-37.0); Mean Corpuscular Hgb 34.7 pg (27.0-31.0); Mean Corpuscular Volume 97.6 fL (80.0-94.0); Mean Platelet Volume 10.2 fL (7.4-10.4); Nucleated Red Blood Cells % 0 % (-); Platelet Count 209 10^3/uL (130-400); Red Blood Cell Count 2.94 10^6/uL (4.70-6.10); Red Cell Dist. Width 11.8 % (11.5-14.5)
[2024-10-31 18:53] LABS: INR 2.15; PT 24.5 Sec (11.4-14.6)
[2024-10-31 19:00] VITALS: BP 133/60
[2024-10-31 20:00] VITALS: BP 126/53
[2024-10-31 20:04] LABS: ALT (SGPT) 26 U/L (0-50); AST (SGOT) 29 U/L (17-59); Albumin 3.7 g/dl (3.5-5.0); Alkaline Phosphatase 80 U/L (38-126); Blood Urea Nitrogen 22 mg/dl (9-20); Calcium 9.2 mg/dl (8.4-10.2); Carbon Dioxide 30 mmol/L (22-30); Chloride 99 mmol/L (98-107); Creatine Phosphokinase 49 U/L (55-170); Estimated Creatinine Clearance 53 ml/min; Glucose 134 mg/dl (70-99); Potassium 4.5 mmol/L (3.5-5.1); Sodium 138 mmol/L (135-145); Total Bilirubin 0.5 mg/dl (0.2-1.3); Total Protein 6.7 g/dl (6.3-8.2); eGFR > 60.00
[2024-10-31] MEDS: KEPPRA 1750 MG PO (20:08)
[2024-10-31] MEDS: TEGRETOL XR (EXTENDED RELEASE) 400 MG PO (20:16)
[2024-10-31 20:43] LABS: Urine Albumin 2+ (Neg - Trace); Urine Bilirubin Negative (Negative); Urine Character Clear (Clear); Urine Color Yellow; Urine Glucose Negative (Negative); Urine Ketone Negative (Negative); Urine Leukocyte Negative (Negative); Urine Nitrite Negative (Negative); Urine Occult Blood Negative (Negative); Urine Specific Gravity 1.005 (<1.030); Urine Urobilinogen Negative (Neg - 1+)
[2024-10-31 20:55] LABS: Urine Squamous Cell 16-20 /LPF (Few)
[2024-10-31 20:56] LABS: Urine Bacteria Few (Negative); Urine Red Blood Cell 0-2 /HPF (0-2); Urine White Cell 0-2 /HPF (0-5)
[2024-10-31 21:00] VITALS: BP 141/58
[2024-10-31 22:00] VITALS: BP 124/54
[2024-10-31] MEDS: AUGMENTIN 875 MG/125 MG 1 TABLET PO (22:28)
== END 2024-10-31 22:49 | disposition home or self-care (01) ==
LOC: EMR 17:58
PROVIDERS: EMERGENCY PHYSICIAN Emergency Medicine; FAMILY PHYSICIAN Internal Medicine
DX: Z04.3 Encounter for examination and observation following other accident (principal); W19.XXXA Unspecified fall, initial encounter; G40.909 Epilepsy, unspecified, not intractable, without status epilepticus; J45.909 Unspecified asthma, uncomplicated; E78.00 Pure hypercholesterolemia, unspecified; G47.33 Obstructive sleep apnea (adult) (pediatric); I11.0 Hypertensive heart disease with heart failure; I50.9 Heart failure, unspecified; Z79.01 Long term (current) use of anticoagulants; Z86.73 Personal history of transient ischemic attack (TIA), and cerebral infarction without residual deficits
CPT/HCPCS: 99284; 70450; 80053; 81003; 81015; 82550; 85025; 85610; 93005

== ENCOUNTER → 2024-11-11 14:20 | Outpatient (REF) | payer MEDICARE, OTHER, SELFPAY ==
[2024-11-11 14:52] LABS: INR 2.34; PT 25.7 Sec (11.4-14.6)
== END ==
LOC: REG 14:20
PROVIDERS: ATTENDING PHYSICIAN Internal Medicine Cardiovascular Disease; FAMILY PHYSICIAN Internal Medicine
DX: I48.0 Paroxysmal atrial fibrillation (principal); Z79.01 Long term (current) use of anticoagulants
CPT/HCPCS: 36415; 85610

== ENCOUNTER → 2024-11-15 12:08 | Outpatient (REF) | payer MEDICARE, OTHER, SELFPAY ==
[2024-11-15 14:01] LABS: Urine Albumin Negative (Neg - Trace); Urine Bilirubin Negative (Negative); Urine Character Clear (Clear); Urine Color Yellow; Urine Glucose Negative (Negative); Urine Ketone Negative (Negative); Urine Leukocyte Negative (Negative); Urine Nitrite Negative (Negative); Urine Occult Blood Negative (Negative); Urine Specific Gravity 1.015 (<1.030); Urine Urobilinogen Negative (Neg - 1+)
== END ==
LOC: REG 12:08
PROVIDERS: ATTENDING PHYSICIAN Internal Medicine
DX: N39.0 Urinary tract infection, site not specified (principal); B95.2 Enterococcus as the cause of diseases classified elsewhere
CPT/HCPCS: 81003

== ENCOUNTER → 2024-12-02 12:46 | Outpatient (REF) | payer MEDICARE, OTHER, SELFPAY | LOC: RCS 12:46 | PROVIDERS: ATTENDING PHYSICIAN Internal Medicine Cardiovascular Disease; FAMILY PHYSICIAN Internal Medicine | DX: I50.22 Chronic systolic (congestive) heart failure (principal) | CPT/HCPCS: 93306 ==

== ENCOUNTER → 2024-12-09 08:48 | Outpatient (REF) | payer MEDICARE, OTHER, SELFPAY ==
[2024-12-09 10:16] LABS: INR 3.17; PT 32.4 Sec (11.4-14.6)
== END ==
LOC: REG 08:48
PROVIDERS: ATTENDING PHYSICIAN Internal Medicine Cardiovascular Disease; FAMILY PHYSICIAN Internal Medicine
DX: I48.0 Paroxysmal atrial fibrillation (principal); Z79.01 Long term (current) use of anticoagulants
CPT/HCPCS: 36415; 85610

== ENCOUNTER 2024-12-13 10:29 | Inpatient (IN) | payer MEDICARE, OTHER, SELFPAY ==
[2024-12-13] VITALS (10 sets, daily range): BP systolic 111–156; BP diastolic 48–69; BMI 22.6; BMI 22.4
--- NOTE | 2024-12-13 07:24 | ED.GENMED ---
History of Present Illness
General
Chief Complaint: Change in Mental Status
Source: ambulance crew
Exam Limitations: dementia
Time Seen by Provider: 12/13/24 07:01
Nursing documentation reviewed up to this point in time: agreed with
History of Present Illness
History of Present Illness:
pt is a 84 y/o M
from home via EMS who said noticed increase confusion and was concerned maybe he was going to have a seizure
pt has h/o epilepsy on keppra
he is not a good historian, oriented to person at baseline only
pt has had some shakiness since being here;
EMS unaware that he had a fever
Patient's came to the bedside and was able to provide much more detailed information. She says that about a week ago patient transiently for few hours seemed to be a little bit more sleepy, took a nap, did not respond normally to some things
on the TV that he normally would be excited about and she was thinking something was going on but that he 'snapped out of it.' And he has been final week until this morning. Patient's says that she was reading and heard some activity in the
patient's room. He normally would ambulate with his walker to the bathroom, get himself together and back to bed however he had made it to the bathroom without his walker which is very unusual and did not seem to totally understand what she was
saying. He was awake, saying 'okay.' But he was not following her commands and he just seemed off. For the paramedics they had a slightly difficult time coaxing him to ultimately walk with his walker to the stretcher. He seemed to have a blank
stare on his face but no facial droop and he was shaking slightly so the was thinking maybe he was going to have a seizure. He does have a history of focal seizures. He is on Keppra.
Patient has not had any recent illness, cough or cold but he does get UTIs
patient had no falls
He is on Coumadin
Past History
Past History
ED Past Medical History: Asthma, Cancer (Lung), CHF, CVA, HTN, Hypercholesterolemia, Seizures and Other (COREY, C-pap at night, Meningitis, )
ED Past Surgical History: Tonsilectomy and Other (right lobectomy, Uvulectomy)
Social History
Tobacco: Non-smoker
Alcohol: None
Drug: None
Personal:
Living: with family
Employment: Retired
Family History
Family History: Other (reviewed and Noncontributory)
Review of Systems
Review of Systems
Allergies reviewed?: Yes
All Other Systems: Not applicable
Phy Exam
Physical Exam
Physical Exam:
GENERAL: Alert , in no apparent distress; awake, alert, responsive to questions, oriented to person
EYE: pupils equal and reactive
NECK: Supple
ENT: o/p clr, mmm.
CARDIAC: Regular rate and rhythm .+_Systolic murmur
LUNGS: Clear breath sounds bilaterally, no acute respiratory distress, no wheezes/rales/rhonchi
ABDOMEN: Soft, without focal tenderness, no r/g, no cvat, normal bowel sounds
NEUROLOGICAL: Alert and oriented, no focal neuro deficits
SKIN: Warm and dry, skin intact.
MUSCULOSKELETAL: No edema, well perfused. neg melissa's sign
PSYCH: Normal and appropriate interaction.
Course
Orders/Labs/Results
Orders:
Orders
12/13/24 07:17
CR Chest - 2 Views Urgent
Comment:
Reason For Exam: fever
12/13/24 07:18
Electrocardiogram (*1) Urgent
Reason for Study: Other
Other Reason for Exam: ams
EKG- Treatment ONCE
Acetaminophen [Tylenol] 650 mg PO NOW STA
12/13/24 07:26
0.9% Sodium Chloride 1000 ml [Nss] 1,000 ml IV BOLUS
12/13/24 07:30
COVID-19 Antigen Urgent
Source: Nasal Swab
Complete Blood Count/With Diff Urgent
Comprehensive Metabolic Panel Urgent
Lactic Acid Urgent
PTT Urgent
Prothrombin Time Urgent
Urinalysis Reflex To Culture Urgent
Date Specimen was Collected: 12/13/24
Time Specimen was Collected: 07:27
Urine Microscopic Reflex Cult Urgent
Blood Culture Q30M
MISHA Source: Blood/Venous
Specimen Description:
Influenza A+B Rapid Molecular Urgent
MISHA Source: Nasal Swab
Specimen Description:
12/13/24 07:39
Blood Culture Q30M
MISHA Source: Blood/Venous
Specimen Description:
12/13/24 08:14
CT Head W/o Iv Contrast Urgent
Comment:
Reason For Exam: ams
12/13/24 09:48
Carbamazepine [Tegretol] 400 mg PO NOW STA
12/13/24 09:53
Levetiracetam [Keppra] 1,750 mg PO NOW STA
12/13/24 10:11
Consult Neurology [NEUROLOGY CONSULT] Routine
Consulting Provider: Galo France
Was physician already notified: Yes
Reason for consult: Seizure, change in mental status
12/13/24 10:13
Admit/Transfer Patient As Directed
Co-Sign Provider:
Level of Care: Inpatient admission
Assign to:: Medical/Surgical
Physician / Group: Hospitalist
Diagnosis: Seizure
Reason for Hospitalization: .
Expected length of stay greater than two midnights?: Yes
ELOS- Estimated Length of Stay in days: 3
I certify the patient meets the requirements for IP care: Yes
PRN Pain Medication Management As Directed
May give lesser potent ordered pain med per pt: Yes
preference::
Protocol:: Medication orders for pain may be administered in a
manner that supports deferring to patient preference
when the pt is:
- Requesting an ordered lesser potent pain medication.
Least to most potent pain medications are defined
as: acetaminophen < NSAID < tramadol < opioids
(morphine, oxycodone, hydromorphone).
- Requesting a lesser dose of the same medication IF
ORDERED.
- Requesting a less intrusive route of administration
if both routes are prescribed by the provider (PO <
IV).
12/13/24 10:15
Code Status As Directed
Resuscitation Status: Full Code
Abnormal Lab Results
12/13/24
07:30
WBC 13.3 H 10^3/uL
(4.8-10.8)
RBC 3.18 L 10^6/uL
(4.70-6.10)
Hgb 10.9 L g/dL
(13.0-18.0)
Hct 31.5 L %
(39.0-52.0)
MCV 99.1 H fL
(80.0-94.0)
MCH 34.3 H pg
(27.0-31.0)
MPV 10.5 H fL
(7.4-10.4)
Abs Immat Gran (auto) 0.1 H 10^3/uL
(0-0.05)
Absolute Neuts (auto) 10.1 H 10^3/uL
(1.4-6.5)
Absolute Monos (auto) 1.3 H 10^3/uL
(0.1-0.6)
Neutrophils % 75.9 H %
(42.2-75.2)
Lymphocytes % 13.2 L %
(20.5-51.1)
Monocytes % 9.8 H %
(1.7-9.3)
PT 31.4 H Sec
(11.4-14.6)
APTT 43.2 H Sec
(23.4-35.0)
Carbon Dioxide 31 H mmol/L
(22-30)
BUN 33 H mg/dl
(9-20)
Glucose 113 H mg/dl
(70-99)
Urine Albumin (Reflex) 1+ A
(Neg - Trace)
12/13/24 07:30
12/13/24 07:30
Vital Signs
Initial and Last Documented VS:
Initial Vital Signs
Temp Pulse Resp BP Pulse Ox
38.1 C H 75 20 153/63 96
12/13/24 07:05 12/13/24 07:05 12/13/24 07:05 12/13/24 07:05 12/13/24 07:05
Last Documented Vital Signs
Temp Pulse Resp BP Pulse Ox
38.1 C H 65 14 125/50 97
12/13/24 07:25 12/13/24 10:04 12/13/24 10:04 12/13/24 10:04 12/13/24 10:04
MDM/Problems Addressed
Differential Diagnosis Includes:
ams, febrile illness, TME, seizures, uti, pneumonia
MDM/Problems Addressed:
mina sheikh
84 y/o M with h/o epilepsy since childhood, HTN, HLD, af on warfarin
here with waxing and waning confusion/blank staring sometimes and disorientation since this morning;
his seizures are usually not grandmal, they are staring or change in mental status
on carbamazepine 400 mg bid, keppra 1750 mg bid and xcopri 200 mg qhs
has not missed meds
waxing and waning disorientation here; minimal responses seomtimes; then will be back to baseline
temp rectal 38.1
no source identified; had some mild tremor on arrival i thought was due to fever
head ct, ua, cxr, flu, covid neg
mild leukocytosis
wants me to give his oral antiepileptics becuase he is sensitive to missign them; she is convinced he needs EEG and is having seizures
i ordered these meds and consulted neuro
unliekly to be status, having episodes of return to baseline; probably triggered by febrile illness
*Critical Care Note
Total Time (30-74mins, 75-104mins- exclusive of procedures): Not Applicable
ED Attending Note
-
Portions of this chart may have been created with voice recognition software.� Occasional wrong word or��sound alike� substitutions may have occurred due to the inherent limitations of voice recognition software.
Discharge Plan
Departure
Patient Disposition: Admit
Date of Disposition: 12/13/24
Time of Disposition: 09:49
Admit to: Telemetry
Presentation/result/management discussed w/ accepting MD/DO: Hospitalist
Condition: Fair
Covid-19: Not Applicable
Discharge Problem:
Altered mental status
Interventions
Interventions:
*Risk Screen - Suicide Last Done: 12/13/24 07:05
*General Assessment Last Done: 12/13/24 07:05
*Neglect/Abuse Screening Last Done: 12/13/24 07:05
*ED COVID-19 Vaccine History Last Done: 12/13/24 07:05
ED- Pulmonary Assessment Last Done: 12/13/24 08:30
ED- Neurological Assessment Last Done: 12/13/24 08:30
ED- Cardiac Assessment Last Done: 12/13/24 08:30
[2024-12-13 07:42] LABS: % Basophils 0.4 % (0-2); % Eosinophils 0.3 % (0-6); % Immature Granulocytes 0.4 % (0-0.5); % Lymphocytes 13.2 % (20.5-51.1); % Monocytes 9.8 % (1.7-9.3); % Neutrophils 75.9 % (42.2-75.2); Absolute Basophils 0.1 10^3/uL (0-0.2); Absolute Immature Granulocytes 0.1 10^3/uL (0-0.05); Absolute Lymphocytes 1.8 10^3/uL (1.2-3.4); Absolute Monocytes 1.3 10^3/uL (0.1-0.6); Absolute Neutrophils 10.1 10^3/uL (1.4-6.5); Hematocrit 31.5 % (39.0-52.0); Hemoglobin 10.9 g/dL (13.0-18.0); Mean Corp Hgb Conc. 34.6 g/dL (33.0-37.0); Mean Corpuscular Hgb 34.3 pg (27.0-31.0); Mean Corpuscular Volume 99.1 fL (80.0-94.0); Mean Platelet Volume 10.5 fL (7.4-10.4); Nucleated Red Blood Cells % 0 % (-); Platelet Count 261 10^3/uL (130-400); Red Blood Cell Count 3.18 10^6/uL (4.70-6.10); Red Cell Dist. Width 12.2 % (11.5-14.5); White Blood Cell Count 13.3 10^3/uL (4.8-10.8)
[2024-12-13] MEDS: NSS 1000 IV (07:43)
[2024-12-13] MEDS: TYLENOL 650 MG PO (07:45)
[2024-12-13 07:47] LABS: Urine Albumin 1+ (Neg - Trace); Urine Bilirubin Negative (Negative); Urine Character Clear (Clear); Urine Color Yellow; Urine Glucose Negative (Negative); Urine Ketone Negative (Negative); Urine Leukocyte Negative (Negative); Urine Nitrite Negative (Negative); Urine Occult Blood Negative (Negative); Urine Specific Gravity 1.015 (<1.030); Urine Urobilinogen Negative (Neg - 1+)
[2024-12-13 07:53] LABS: INR 3.05; PT 31.4 Sec (11.4-14.6)
[2024-12-13 07:54] LABS: APTT 43.2 Sec (23.4-35.0)
[2024-12-13 07:58] LABS: ALT (SGPT) 13 U/L (0-50); AST (SGOT) 18 U/L (17-59); Albumin 4.2 g/dl (3.5-5.0); Alkaline Phosphatase 69 U/L (38-126); Blood Urea Nitrogen 33 mg/dl (9-20); Calcium 9.2 mg/dl (8.4-10.2); Carbon Dioxide 31 mmol/L (22-30); Chloride 103 mmol/L (98-107); Estimated Creatinine Clearance 47 ml/min; Glucose 113 mg/dl (70-99); Potassium 4.4 mmol/L (3.5-5.1); Sodium 142 mmol/L (135-145); Total Bilirubin 0.6 mg/dl (0.2-1.3); Total Protein 7.7 g/dl (6.3-8.2); eGFR > 60.00
[2024-12-13 08:03] LABS: COVID-19 Antigen Negative (Negative)
[2024-12-13 08:14] LABS: Urine Squamous Cell 16-20 /LPF (Few)
[2024-12-13 08:15] LABS: Urine Amorphous Seen; Urine Mucus Moderate
[2024-12-13 08:29] LABS: Urine Red Blood Cell 0-2 /HPF (0-2); Urine White Cell 0-2 /HPF (0-5)
[2024-12-13] MEDS: KEPPRA 1750 MG PO (10:00)
[2024-12-13] MEDS: TEGRETOL 400 MG PO (10:01)
--- NOTE | 2024-12-13 10:10 | HPS.HSE ---
Family Physician
-
Family Physician: Robin Garcia
Chief Complaint
-
Change mental status
History of Present Illness
84 years old male who presented to the hospital through EMT after his called the ambulance. Reportedly, patient was having change in mental status and concern with new seizures. Patient has history of seizure disorder and takes medications.
No history of medications interruption. No history of convulsions associated with behavioral changes including blank stare and confusion. Patient started to improve back to his baseline. He was seen by neurologist in the emergency room and was
given his usual oral antiseizure medications. There was mild fever around 100.6 upon arrival but no history of febrile illness recently or complaints. Patient currently in the ER has no complaints.He was noted to have elevated white count to 13.3.
Medical History
Past Medical History
Past Medical History: Reports Other (Asthma, history of lung cancer, gait dysfunction, seizure disorder, pancytopenia, cervical spine compression, pulmonary hypertension, pulmonary nodules, history of pleural effusion, chronic anemia, history of
hypoxic respiratory failure, obstructive sleep apnea, history of diverticulitis history of )
Past Surgical History: Reports Other (no recent surgery )
Social History
Tobacco: Non-smoker
Alcohol: None
Drug: None
Personal:
Living: With Family
Employment: Retired
Family History
Family History: Not pertinent
Allergies / Home Medications
Allergies reflects when Allergies were last updated in [facility].
Home Medications with original date entered in [facility]
Allergy/Medication List:
Allergies
Allergy/AdvReac Type Severity Reaction Status Date / Time
hydralazine Allergy Unknown Verified 12/13/24 08:31
pollen extracts Allergy nasal Verified 12/13/24 08:31
symptoms
Home Medications
minoxidil 10 mg tablet 10 mg PO BID Blood Pressure 01/22/23
cyanocobalamin (vitamin B-12) 1,000 mcg tablet 1,000 mcg PO DAILY Supplement 10/17/23
furosemide 40 mg tablet 40 mg PO DAILY Fluid Retention/Swelling 10/17/23
pantoprazole 40 mg tablet,delayed release 40 mg PO DAILY Gastrointestinal Issue 10/17/23
warfarin 1 mg tablet 5.5 mg PO QPM Blood Clot Prevention/Tx 10/17/23
cenobamate 200 mg tablet (Xcopri) 200 mg PO QPM Seizures 05/27/24
clonidine 0.2 mg/24 hr weekly transdermal patch 0.2 mg transdermal WE Blood Pressure 30 days #4 ea 05/29/24
amlodipine 2.5 mg tablet 2.5 mg PO DAILY Blood Pressure 07/15/24
carbamazepine 200 mg tablet,extended release,12 hr 400 mg PO BID Seizures 07/15/24
levetiracetam 500 mg tablet 1,750 mg PO BID seizures 07/15/24
lorazepam 1 mg tablet 1 mg PO Q6HPRN PRN anxiety 07/15/24
ascorbic acid (vitamin C) 100 mg tablet (Vitamin C) 100 mg PO QPM Supplement 10/24/24
silodosin 8 mg capsule 8 mg PO QPM 10/24/24
psyllium 1 packet PO DAILY 12/13/24
Review of Systems
-
History Source: Patient
A 12 point ROS was completed and negative except as noted: Yes
Constitutional: Denies Fever or Chills
EENT: Denies Sore Throat
Respiratory: Denies Cough or Trouble Breathing
Cardiac: Denies Chest Pain
Abdomen/GI: Denies Abdominal Pain, Nausea or Diarrhea
: Denies Dysuria or Difficulty Voiding
Musculoskeletal: Denies Joint Pain or Joint Swelling
Skin: Denies Rash
Neurological: Denies Headache or Numbness
Endocrine: Denies Temp Intolerance
Psych: Denies Panic Disorder
Physical Exam
Vital Signs
Vital Signs
Temp Pulse Resp BP Pulse Ox
100.6 F H 65 14 125/50 97
12/13/24 07:25 12/13/24 10:04 12/13/24 10:04 12/13/24 10:04 12/13/24 10:04
Physical Exam
General: No Apparent Distress, Comfortable and Conversant
HEENT: Moist mucous membranes, Atraumatic, No Ptosis, Nose Appears Normal and Neck Nontender
Respiratory: Clear
Cardiac: S1/S2; No Tachycardia
GI: Soft, Non Tender, Non Distended and Normal Bowel Sounds
Genito-urinary: No costovertebral tender
Musculoskeletal: No Clubbing, No Cyanosis and No Edema
Skin: No Jaundice
Neuro: Oriented and Nonfocal/grossly intact; No Slurred Speech, Facial Droop or Tremors
Psych: Calm; No Confused or Anxious
Laboratory Results
-
12/13/24 07:30
12/13/24 07:30
Laboratory Results
PT 31.4 Sec (11.4-14.6) H 12/13/24 07:30
INR 3.05 12/13/24 07:30
APTT 43.2 Sec (23.4-35.0) H 12/13/24 07:30
Lactic Acid 1.0 mmol/L (0.7-2.0) 12/13/24 07:30
Total Bilirubin 0.6 mg/dl (0.2-1.3) 12/13/24 07:30
AST 18 U/L (17-59) 12/13/24 07:30
ALT 13 U/L (0-50) 12/13/24 07:30
Alkaline Phosphatase 69 U/L (38-126) 12/13/24 07:30
Impression/Plan
-
# Change in mental status, likely due to seizure.
He seems to be back to baseline. Currently oriented x 3
He follows commands. Nonfocal.
No headache. No blurred vision.
CAT scan of the head, no acute findings.
Patient was evaluated by neurologist. Recommendation to continue Keppra, Tegretol and Xcopri
Appreciate neurology input
# Mild febrile illness. Could be reactive
No respiratory or GI symptoms. Urine not consistent with UTI.
Will continue to monitor, Tylenol as needed. Influenza and COVID screen are negative
Will do blood cultures.
# History of recent diverticulitis
He denies GI symptoms
# History of chronic pulmonary hypertension/ Chronic HFrEF
08/25/[id number] LV size. EF 45 to 50%. Reduced RV systolic function. Severely dilated LA. Moderately dilated RA. Mild MR. Mild to moderate AAS. Severe TR. Pulmonary artery pressure 60 to 65 mmHg.
No history of shortness of breath. No changes intended
# Paroxysmal atrial fibrillation, warfarin anticoagulation
High INR , hold Coumadin tonight
Check PT/INR
No history of palpitation
# History of gait dysfunction. CAT scan of the head no acute abnormality.
Eventual PT/OT evaluation. Patient uses wheelchair a stair lift at home
# Primary hypertension-continue clonidine patch, minoxidil and Norvasc
# Seizures-continue Xcopri, Keppra, carbamazepine.
# GERD-continue PPI
# Chronic anemia-
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
# Ambulatory dysfunction
# Dementia
# Sleep apnea- states that patient lost weight and had seen Dr. Pace. He does not need to use CPAP anymore.
# DVT prophylaxis-elevated INR
# CODE STATUS- Full code
Total time spent to see the patient, examine the patient, review data and lab results, discuss treatment plan with patient, ER doctor, nursing staff around 75 minutes
--- NOTE | 2024-12-13 11:10 | CON.NEURO ---
Neuro Assessment/Plan
Assessment
EEG 06/2024 gen slow, right frontocentral sharps
84 year old man with seizure cluster. possibly provoked by mild febrile illness. was not in status epilepticus.
Plan
admit obs see if he has more seizures/develops an infection
continue Keppra to 1,750 mg PO BID, Tegretol 400 mg twice daily and Xcopri 200 mg once a day
no need for repeat EEG
benzo only if status epilepticus (sz >5 mins, or multiple seizure without return to baseline)
Consultation
Order
Date of Consultation: 12/13/24
Requesting Provider: Rhonda Glasgow
Reason for Consult: seizure
Subjective/Objective
Subjective Data
Date of Service: December 13, 2024
from ED notes:
Patient's came to the bedside and was able to provide much more detailed information. She says that about a week ago patient transiently for few hours seemed to be a little bit more sleepy, took a nap, did not respond normally to some things
on the TV that he normally would be excited about and she was thinking something was going on but that he 'snapped out of it.' And he has been final week until this morning. Patient's says that she was reading and heard some activity in the
patient's room. He normally would ambulate with his walker to the bathroom, get himself together and back to bed however he had made it to the bathroom without his walker which is very unusual and did not seem to totally understand what she was
saying. He was awake, saying 'okay.' But he was not following her commands and he just seemed off. For the paramedics they had a slightly difficult time coaxing him to ultimately walk with his walker to the stretcher. He seemed to have a blank
stare on his face but no facial droop and he was shaking slightly so the was thinking maybe he was going to have a seizure. He does have a history of focal seizures. He is on Keppra.
His typical seizure semiology is encephalopathy, presenting similar to this. The initial event he returned to baseline within the hour. In the ED, had a second event and returned to baseline ~20 minutes.
last seizure was 04/2024, he was in status epilepticus
AEDs: Keppra to 1,750 mg PO BID, Tegretol 400 mg twice daily and Xcopri 200 mg once a day
Prior AEDs: Dilantin, Depakote, Vimpat
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
PSH: RUL lung resection(2014), melanoma excision, UPPP, BL cataract surgery
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
FH:Brother- cerebral aneurysm
All: Hydralazine
ROS: Positive for expressive aphasia, chronic encephalopathy, negative for headache, change in vision or strength
Objective Data
Vital Signs
Temp Pulse Resp BP Pulse Ox
38.1 C H 65 14 125/50 97
12/13/24 07:25 12/13/24 10:04 12/13/24 10:04 12/13/24 10:04 12/13/24 10:04
Lab Results
12/13/24 07:30
12/13/24 07:30
PT 31.4 Sec (11.4-14.6) H 12/13/24 07:30
INR 3.05 12/13/24 07:30
APTT 43.2 Sec (23.4-35.0) H 12/13/24 07:30
Sodium 142 mmol/L (135-145) 12/13/24 07:30
Potassium 4.4 mmol/L (3.5-5.1) 12/13/24 07:30
BUN 33 mg/dl (9-20) H 12/13/24 07:30
Glucose 113 mg/dl (70-99) H 12/13/24 07:30
Calcium 9.2 mg/dl (8.4-10.2) 12/13/24 07:30
Patient Allergies
hydralazine Allergy (Verified 12/13/24 08:31)
Unknown
pollen extracts Allergy (Verified 12/13/24 08:31)
nasal symptoms
Physical Exam
-
AAOx age, month, speech clear
VFF, EOMI, face symmetric
full strength b/l UE/LE
sensation intact touch/temp; moderate vib loss in ankles
DTR 1+ x4
Medications
-
Home Medications
�Medication �Instructions �Recorded
minoxidil 10 mg tablet 10 mg PO BID Blood Pressure 01/22/23
cyanocobalamin (vitamin B-12) 1,000 mcg PO DAILY Supplement 10/17/23
1,000 mcg tablet
furosemide 40 mg tablet 40 mg PO DAILY Fluid 10/17/23
Retention/Swelling
pantoprazole 40 mg tablet,delayed 40 mg PO DAILY Gastrointestinal 10/17/23
release Issue
warfarin 1 mg tablet 5.5 mg PO QPM Blood Clot 10/17/23
Prevention/Tx
cenobamate 200 mg tablet (Xcopri) 200 mg PO QPM Seizures 05/27/24
clonidine 0.2 mg/24 hr weekly 0.2 mg transdermal WE Blood 05/29/24
transdermal patch Pressure 30 days #4 ea
amlodipine 2.5 mg tablet 2.5 mg PO DAILY Blood Pressure 07/15/24
carbamazepine 200 mg 400 mg PO BID Seizures 07/15/24
tablet,extended release,12 hr
levetiracetam 500 mg tablet 1,750 mg PO BID seizures 07/15/24
lorazepam 1 mg tablet 1 mg PO Q6HPRN PRN anxiety 07/15/24
ascorbic acid (vitamin C) 100 mg 100 mg PO QPM Supplement 10/24/24
tablet (Vitamin C)
silodosin 8 mg capsule 8 mg PO QPM 10/24/24
psyllium 1 packet PO DAILY 12/13/24
[2024-12-13] MEDS: D5/0.9% SODIUM CHLORIDE 1000 IV (14:46)
--- NOTE | 2024-12-13 16:25 | PTCARENOTE ---
Pt noted to be drowsy and with a mild change in speech. Patient is AAOx3. Patient also became nauseous and vomited forcefully x1 around ~200ml of beige liquid. NIH preformed, score of [address] Cruz contacted and updated. CT of ABD
ordered and IVF rate increased to 100ml/hr. Patient reports feeling tired. Upon awaking after ~1hour nap, patient back at baseline and feeling better.
[2024-12-13] MEDS: ZOFRAN 4 MG IV (16:55)
[2024-12-13] MEDS: NON-FORMULARY ITEM 1 MG PO (17:52)
[2024-12-13] MEDS: FLOMAX 0.4 MG PO (17:53)
[2024-12-13] MEDS: STERILE WATER FOR INJECTION 10 ML IV (17:53)
[2024-12-13] MEDS: ROCEPHIN 1000 MG IV (17:53)
[2024-12-13] MEDS: VITAMIN C 250 MG PO (17:53)
[2024-12-13] MEDS: KEPPRA 1500 MG PO (20:15)
[2024-12-13] MEDS: KEPPRA 250 MG PO (20:15)
[2024-12-13] MEDS: TEGRETOL XR (EXTENDED RELEASE) 400 MG PO (20:16)
[2024-12-13] MEDS: LONITEN 10 MG PO (20:22)
[2024-12-14] MEDS: D5/0.9% SODIUM CHLORIDE 1000 IV (01:39)
[2024-12-14 06:00] VITALS: BMI 22.3
[2024-12-14 07:00] VITALS: BP 145/61
[2024-12-14] MEDS: METAMUCIL, KONSYL 1 PACKET PO (09:01)
[2024-12-14] MEDS: KEPPRA 1500 MG PO ×2 (09:01→21:11)
[2024-12-14] MEDS: PROTONIX 40 MG PO (09:02)
[2024-12-14] MEDS: TEGRETOL XR (EXTENDED RELEASE) 400 MG PO ×2 (09:02→21:12)
[2024-12-14] MEDS: NORVASC 2.5 MG PO (09:03)
[2024-12-14] MEDS: LASIX 40 MG PO (09:03)
[2024-12-14] MEDS: KEPPRA 250 MG PO ×2 (09:03→21:11)
[2024-12-14] MEDS: LONITEN 10 MG PO ×2 (09:03→21:18)
--- NOTE | 2024-12-14 09:13 | W.PN.HOSP.TC ---
Today's Communication/Plan
-
Await blood work result
CT study
Assessment / Plan
Assessment / Plan
Physical Exam
General: No Apparent Distress, Comfortable and Conversant
HEENT: Moist mucous membranes, Atraumatic, No Ptosis, Nose Appears Normal and Neck Nontender
Respiratory: Clear
Cardiac: S1/S2; No Tachycardia
GI: Soft, Non Tender, Non Distended and Normal Bowel Sounds
Genito-urinary: No costovertebral tender
Musculoskeletal: No Clubbing, No Cyanosis and No Edema
Skin: No Jaundice
Neuro: Oriented and Nonfocal/grossly intact; No Slurred Speech, Facial Droop or Tremors
Psych: Calm; No Confused or Anxious
# Change in mental status, likely due to seizure.
He seems to be back to baseline. Currently oriented x 3
He follows commands. Nonfocal.
No headache. No blurred vision.
CAT scan of the head, no acute findings.
Patient was evaluated by neurologist. Recommendation to continue Keppra, Tegretol and Xcopri
Appreciate neurology input
# Mild febrile illness. Could be reactive or GI source
No respiratory. He had vomiting one time but denies GI symptoms today. Urine not consistent with UTI.
Empiric Rocephin, recent diverticulitis ( he had no pain at the time) , will repeat CT study.
# History of chronic pulmonary hypertension/ Chronic HFrEF
08/25/[id number] LV size. EF 45 to 50%. Reduced RV systolic function. Severely dilated LA. Moderately dilated RA. Mild MR. Mild to moderate AAS. Severe TR. Pulmonary artery pressure 60 to 65 mmHg.
No history of shortness of breath. No changes intended
# Paroxysmal atrial fibrillation, warfarin anticoagulation
High INR , hold Coumadin tonight
Check PT/INR
No history of palpitation
# History of gait dysfunction. CAT scan of the head no acute abnormality.
Eventual PT/OT evaluation. Patient uses wheelchair a stair lift at home
# Primary hypertension-continue clonidine patch, minoxidil and Norvasc
# GERD-continue PPI
# Chronic anemia-
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
# Sleep apnea- states that patient lost weight and had seen Dr. Pace. He does not need to use CPAP anymore.
# DVT prophylaxis-elevated INR
# CODE STATUS- Full code
Total time spent to see the patient, examine the patient, review data and lab results, discuss treatment plan with patient, , nursing staff around 55 minutes
Anticipated Discharge: 24 - 48 hours
Subjective/Interval History
-
Date of Service: December 14, 2024
He feels better, no nausea
Tolerated breakfast
No fevers or seizures over night
Objective Data
-
Labs:
Laboratory Results
12/14/24
08:34
WBC Pending
Hgb Pending
Hct Pending
Plt Count Pending
PT Pending
INR Pending
Sodium Pending
Potassium Pending
Chloride Pending
Carbon Dioxide Pending
BUN Pending
Creatinine Pending
Glucose Pending
Calcium Pending
Vital Signs:
Vital Signs
Temp Pulse Resp BP Pulse Ox
97.9 F 63 20 145/61 96
12/14/24 07:00 12/14/24 07:00 12/14/24 07:00 12/14/24 07:00 12/14/24 07:00
I&O
12/13/24 12/14/24 12/15/24
06:59 06:59 06:59
Intake Total 240 / 240 1000 / 1000
Output Total 575 / 575 800 / 800
Balance -335 / -335 200 / 200
[2024-12-14 09:39] LABS: Hematocrit 27.4 % (39.0-52.0); Hemoglobin 9.1 g/dL (13.0-18.0); Mean Corp Hgb Conc. 33.2 g/dL (33.0-37.0); Mean Corpuscular Hgb 33.7 pg (27.0-31.0); Mean Corpuscular Volume 101.5 fL (80.0-94.0); Platelet Count 213 10^3/uL (130-400); Red Cell Dist. Width 12.3 % (11.5-14.5); White Blood Cell Count 9.1 10^3/uL (4.8-10.8)
[2024-12-14] MEDS: OMNIPAQUE 50 ML PO (09:43)
[2024-12-14 09:49] LABS: INR 3.57; PT 35.4 Sec (11.4-14.6)
[2024-12-14 10:33] LABS: Blood Urea Nitrogen 22 mg/dl (9-20); Calcium 8.9 mg/dl (8.4-10.2); Carbon Dioxide 29 mmol/L (22-30); Chloride 108 mmol/L (98-107); Estimated Creatinine Clearance 55 ml/min; Glucose 144 mg/dl (70-99); Potassium 4.1 mmol/L (3.5-5.1); Sodium 143 mmol/L (135-145); eGFR > 60.00
[2024-12-14 13:17] VITALS: BP 125/58; PULSE 86; O2SAT 99
--- NOTE | 2024-12-14 14:30 | CM ---
Initial assessment completed. Patient is a 84 year old male who presented to the hospital through EMT after his called the ambulance. Reportedly, patient was having change in mental status and concern with new seizures.
Patient resides w/ spouse in a 2STH- 1 step to enter through garage and 1 step to enter from front door
Independent w/ walker. Patient has two walkers and two wheelchairs. Patient doesn't use wheelchairs. Patient has shower chair, rails, hospital bed, stair glide and grab bars throughout the home for support.
[facility] for SNF in the past
[facility] in the past, along w/ [facility] and [facility] that was discontinued due to pt's health improvements per spouse
Address, point of contact and insurance verified
PCP: Dr. Robin Garcia
Pharmacy: [facility]
Therapy assessed patient, rec HH at d/c. CM to discuss w/ patient and spouse prior to d/c
Plan: Home. HH recommended
[2024-12-14 15:05] VITALS: BP 119/52; PULSE 64; O2SAT 97
[2024-12-14 15:43] VITALS: BP 119/52
[2024-12-14 16:02] VITALS: BP 119/52; PULSE 64; O2SAT 97
[2024-12-14] MEDS: NON-FORMULARY ITEM 200 MG PO (16:48)
[2024-12-14] MEDS: ROCEPHIN 1000 MG IV (16:49)
[2024-12-14] MEDS: FLOMAX 0.4 MG PO (16:49)
[2024-12-14] MEDS: STERILE WATER FOR INJECTION 10 ML IV (16:49)
[2024-12-14] MEDS: VITAMIN C 250 MG PO (16:49)
[2024-12-14 23:00] VITALS: BP 122/48; BP 123/50
[2024-12-15 07:00] VITALS: BP 154/64
[2024-12-15] MEDS: KEPPRA 1500 MG PO ×2 (08:54→20:36)
[2024-12-15] MEDS: KEPPRA 250 MG PO ×2 (08:54→20:36)
[2024-12-15] MEDS: LASIX 40 MG PO (08:56)
[2024-12-15] MEDS: LONITEN 10 MG PO ×2 (08:56→20:38)
[2024-12-15] MEDS: PROTONIX 40 MG PO (08:57)
[2024-12-15] MEDS: METAMUCIL, KONSYL 1 PACKET PO (08:57)
[2024-12-15] MEDS: NORVASC 2.5 MG PO (08:57)
[2024-12-15] MEDS: TEGRETOL XR (EXTENDED RELEASE) 400 MG PO ×2 (08:57→20:34)
--- NOTE | 2024-12-15 10:03 | W.PN.HOSP.TC ---
Today's Communication/Plan
-
GI consult
IV ABx
Check INR
Assessment / Plan
Assessment / Plan
Physical Exam
General: No Apparent Distress, Comfortable and Conversant
HEENT: Moist mucous membranes, Atraumatic, No Ptosis, Nose Appears Normal and Neck Nontender
Respiratory: Clear
Cardiac: S1/S2; No Tachycardia
GI: Soft, Non Tender, Non Distended and Normal Bowel Sounds
Genito-urinary: No costovertebral tender
Musculoskeletal: No Clubbing, No Cyanosis and No Edema
Skin: No Jaundice
Neuro: Oriented and Nonfocal/grossly intact; No Slurred Speech, Facial Droop or Tremors
Psych: Calm; No Confused or Anxious
# Change in mental status, likely due to seizure from fever.
He seemed to be back to baseline. Currently oriented x 3 for > 48 hours.
He follows commands. Nonfocal.
No headache. No blurred vision.
CAT scan of the head, no acute findings.
Patient was evaluated by neurologist. Recommendation to continue Keppra, Tegretol and Xcopri
Appreciate neurology input
# Acute recurrent sigmoid diverticulitis.
Patient did not have pain or her usual presentation of diverticulitis. He had fever and was admitted due to change in mental status/cluster seizure.
No more fever. No GI symptoms. Tolerating diet. Mild discomfort on deep palpation left lower quadrant.
Patient had recent diverticulitis and he did not have typical presentation also. He was treated with antibiotics and discharged on oral antibiotic, finish course. He saw GI doctor on December 09 in outpatient setting and plan to hold off on colonoscopy
as patient did not have symptoms.
Consulted GI, appreciate input. Continue with IV Rocephin for now.
# History of chronic pulmonary hypertension/ Chronic HFrEF
[id number] LV size. EF 45 to 50%. Reduced RV systolic function. Severely dilated LA. Moderately dilated RA. Mild MR. Mild to moderate AAS. Severe TR. Pulmonary artery pressure 60 to 65 mmHg.
No history of shortness of breath. No changes intended
# Paroxysmal atrial fibrillation, warfarin anticoagulation
High INR , holding Coumadin
Check INR
No history of palpitation
# History of gait dysfunction. CAT scan of the head no acute abnormality.
Eventual PT/OT evaluation. Patient uses wheelchair a stair lift at home
# Primary hypertension-continue clonidine patch, minoxidil and Norvasc
# GERD-continue PPI
# Chronic anemia-
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
# Sleep apnea- states that patient lost weight and had seen Dr. Pace. He does not need to use CPAP anymore.
# DVT prophylaxis-elevated INR
# CODE STATUS- Full code
Total time spent to see the patient, examine the patient, review data and lab results, discuss treatment plan with patient, , nursing staff around 55 minutes
Anticipated Discharge: 24 - 48 hours
Subjective/Interval History
-
Date of Service: December 15, 2024
No chest pain
No abdominal pain
No nausea
Objective Data
-
Vital Signs:
Vital Signs
Temp Pulse Resp BP Pulse Ox
98.0 F 69 18 154/64 98
12/15/24 07:00 12/15/24 07:00 12/15/24 07:00 12/15/24 07:00 12/15/24 07:00
I&O
12/14/24 12/15/24 12/16/24
06:59 06:59 06:59
Intake Total 240 / 240 2200 / 2200
Output Total 575 / 575 925 / 925
Balance -335 / -335 1275 / 1275
[2024-12-15 11:57] LABS: INR 2.17; PT 24.2 Sec (11.4-14.6)
--- NOTE | 2024-12-15 12:34 | CON.GI ---
Consultation
-
Date/Time Consultation Requested: 12/15/2024
Date/Time Consultation Performed: 12/15/2024
Performing Provider: Victor Manuel Dodson
Reason for Consultation: recurrent diverticulitis
Medical History
Chief Complaint / HPI
Chief Complaint: recurrent diverticulitis
History of Present Illness:
84 years old male with h/o asthma, history of lung cancer, seizure disorder, pulmonary hypertension, chronic anemia, and history of hypoxic respiratory failure who p/w change in mental status and concern for new seizures. Patient has history of
seizure disorder and takes medications. During admission he had low grade fever (100.6) and noted a mild leukocytosis. He has h/o diverticulitis and CT abd was repeated which showed recurrent diverticulitis. Denies abdominal pain.
Past Medical History
Past Medical History: Asthma, HTN, Hypercholesterolemia, Seizures and Other
Past Surgical History: Other
Social History
Tobacco: Non-Smoker
Alcohol: None
Allergies / Home Medications
Allergy/AdvReac Type Severity Reaction Status Date / Time
hydralazine Allergy Unknown Verified 12/13/24 08:31
pollen extracts Allergy nasal Verified 12/13/24 08:31
symptoms
�Medication �Instructions �Recorded
minoxidil 10 mg tablet 10 mg PO BID Blood Pressure 01/22/23
cyanocobalamin (vitamin B-12) 1,000 mcg PO DAILY Supplement 10/17/23
1,000 mcg tablet
furosemide 40 mg tablet 40 mg PO DAILY Fluid 10/17/23
Retention/Swelling
pantoprazole 40 mg tablet,delayed 40 mg PO DAILY Gastrointestinal 10/17/23
release Issue
warfarin 1 mg tablet 5.5 mg PO QPM Blood Clot 10/17/23
Prevention/Tx
cenobamate 200 mg tablet (Xcopri) 200 mg PO QPM Seizures 05/27/24
clonidine 0.2 mg/24 hr weekly 0.2 mg transdermal WE Blood 05/29/24
transdermal patch Pressure 30 days #4 ea
amlodipine 2.5 mg tablet 2.5 mg PO DAILY Blood Pressure 07/15/24
carbamazepine 200 mg 400 mg PO BID Seizures 07/15/24
tablet,extended release,12 hr
levetiracetam 500 mg tablet 1,750 mg PO BID seizures 07/15/24
lorazepam 1 mg tablet 1 mg PO Q6HPRN PRN anxiety 07/15/24
ascorbic acid (vitamin C) 100 mg 100 mg PO QPM Supplement 10/24/24
tablet (Vitamin C)
silodosin 8 mg capsule 8 mg PO QPM Urinary Issue 10/24/24
psyllium 1 packet PO DAILY Gastrointestinal 12/13/24
Issue
Review of Systems
Vital Signs
Temp Pulse Resp BP Pulse Ox
98.0 F 69 18 154/64 98
12/15/24 07:00 12/15/24 07:00 12/15/24 07:00 12/15/24 07:00 12/15/24 07:00
Physical Exam
Exam
General: Well Developed and Well Nourished
HEENT: Normocephalic
Respiratory: Clear
Cardiac: S1/S2
GI: Soft, Non Tender, Non Distended and Normal Bowel Sounds
Results
WBC 9.1 10^3/uL (4.8-10.8) 12/14/24 08:34
Hgb 9.1 g/dL (13.0-18.0) L 12/14/24 08:34
Hct 27.4 % (39.0-52.0) L 12/14/24 08:34
MCV 101.5 fL (80.0-94.0) H 12/14/24 08:34
Plt Count 213 10^3/uL (130-400) 12/14/24 08:34
Absolute Neuts (auto) 10.1 10^3/uL (1.4-6.5) H 12/13/24 07:30
PT 24.2 Sec (11.4-14.6) H 12/15/24 11:41
INR 2.17 12/15/24 11:41
APTT 43.2 Sec (23.4-35.0) H 12/13/24 07:30
Sodium 143 mmol/L (135-145) 12/14/24 08:34
Potassium 4.1 mmol/L (3.5-5.1) 12/14/24 08:34
Chloride 108 mmol/L (98-107) H 12/14/24 08:34
Carbon Dioxide 29 mmol/L (22-30) 12/14/24 08:34
BUN 22 mg/dl (9-20) H 12/14/24 08:34
Creatinine 1.0 mg/dL (0.7-1.3) 12/14/24 08:34
Calcium 8.9 mg/dl (8.4-10.2) 12/14/24 08:34
Total Bilirubin 0.6 mg/dl (0.2-1.3) 12/13/24 07:30
AST 18 U/L (17-59) 12/13/24 07:30
ALT 13 U/L (0-50) 12/13/24 07:30
Alkaline Phosphatase 69 U/L (38-126) 12/13/24 07:30
Diagnostic Image Results:
Prior GI Procedures:
EGD:
Colonoscopy:
Assessment / Plan
-
84 years old male with h/o asthma, history of lung cancer, seizure disorder, pulmonary hypertension, chronic anemia, and history of hypoxic respiratory failure who p/w change in mental status and concern for new seizures. GI being consulted for
evaluation of recurrent diverticulitis.
Impression / Rec:
1. Recurrent diverticulitis - patient had episode of diverticulitis on 09/2024. He followed up in GI office on 11/2024 to discuss possible colonoscopy, which he deferred. During this admission, he had repeat CT of abdomen for low-grade fever and
mild leukocytosis which showed recurrent sigmoid diverticulitis. He is completely symptom-free and denies abdominal pain. Again I had discussion with patient and his regarding possible colonoscopy. The purpose of the colonoscopy was
explained, that this procedure is to exclude other underlying pathology and will not make any difference in the disease course. He will need sigmoidectomy for definitive intervention of his diverticulitis. He will need colonoscopy prior to this.
This was discussed with the patient and his . I advised him to follow-up in GI office again to reconsider things. They will think about it. GI will s/o, call with questions.
Total Time Spent with Patient (in minutes): 55
-
-
Thank you for consultation and allowing me to participate in the patient's care. Please call the boning room worker GI physician during the after hours with any questions or concerns.
[2024-12-15 15:00] VITALS: BP 140/61
[2024-12-15] MEDS: NON-FORMULARY ITEM 200 MG PO (17:39)
[2024-12-15] MEDS: COUMADIN 5 MG PO (17:39)
[2024-12-15] MEDS: VITAMIN C 250 MG PO (17:40)
[2024-12-15] MEDS: ROCEPHIN 1000 MG IV (17:40)
[2024-12-15] MEDS: FLOMAX 0.4 MG PO (17:40)
[2024-12-15] MEDS: STERILE WATER FOR INJECTION 10 ML IV (17:40)
[2024-12-15 23:57] VITALS: BP 138/64
[2024-12-16 07:00] VITALS: BP 173/76
[2024-12-16] MEDS: METAMUCIL, KONSYL 1 PACKET PO (08:34)
[2024-12-16] MEDS: TEGRETOL XR (EXTENDED RELEASE) 400 MG PO ×2 (08:34→20:48)
[2024-12-16] MEDS: KEPPRA 1500 MG PO ×2 (08:34→20:46)
[2024-12-16] MEDS: KEPPRA 250 MG PO ×2 (08:34→20:47)
[2024-12-16] MEDS: LASIX 40 MG PO (08:34)
[2024-12-16] MEDS: NORVASC 2.5 MG PO (08:34)
[2024-12-16] MEDS: LONITEN 10 MG PO ×2 (08:34→20:47)
[2024-12-16] MEDS: PROTONIX 40 MG PO (08:34)
[2024-12-16 09:25] LABS: Blood Urea Nitrogen 19 mg/dl (9-20); Calcium 9.3 mg/dl (8.4-10.2); Carbon Dioxide 29 mmol/L (22-30); Chloride 105 mmol/L (98-107); Estimated Creatinine Clearance 55 ml/min; Glucose 117 mg/dl (70-99); Potassium 4.8 mmol/L (3.5-5.1); Sodium 143 mmol/L (135-145); eGFR > 60.00
[2024-12-16 09:55] LABS: INR 1.62; PT 19.5 Sec (11.4-14.6)
[2024-12-16 09:59] LABS: % Basophils 0.8 % (0-2); % Immature Granulocytes 0.3 % (0-0.5); % Lymphocytes 23.7 % (20.5-51.1); % Monocytes 8.9 % (1.7-9.3); % Neutrophils 60.3 % (42.2-75.2); Absolute Basophils 0.1 10^3/uL (0-0.2); Absolute Eosinophils 0.4 10^3/uL (0-0.7); Absolute Lymphocytes 1.7 10^3/uL (1.2-3.4); Absolute Monocytes 0.7 10^3/uL (0.1-0.6); Absolute Neutrophils 4.4 10^3/uL (1.4-6.5); Hematocrit 30.7 % (39.0-52.0); Hemoglobin 10.3 g/dL (13.0-18.0); Mean Corp Hgb Conc. 33.6 g/dL (33.0-37.0); Mean Corpuscular Hgb 33.7 pg (27.0-31.0); Mean Corpuscular Volume 100.3 fL (80.0-94.0); Mean Platelet Volume 11.1 fL (7.4-10.4); Nucleated Red Blood Cells % 0 % (-); Platelet Count 258 10^3/uL (130-400); Red Blood Cell Count 3.06 10^6/uL (4.70-6.10); Red Cell Dist. Width 12.1 % (11.5-14.5); White Blood Cell Count 7.3 10^3/uL (4.8-10.8)
[2024-12-16] MEDS: FLAGYL 500 MG PO ×2 (10:42→17:09)
--- NOTE | 2024-12-16 11:28 | CM ---
CM reviewed chart, patient seen bedside. CM discussed PT recommendation of home health, patient not agreeable at this time. Patient reports his will provide transportation home upon discharge. CM will continue to follow for all discharge
planning needs.
Plan; home with , declining VN at this time
[2024-12-16 12:53] VITALS: BP 131/58
--- NOTE | 2024-12-16 12:59 | W.PN.HOSP.TC ---
Today's Communication/Plan
-
Monitor vital signs see plan
Monitor INR
Increase Coumadin
Continue with antibiotics, Added Flagyl
hopeful dc soon
Assessment / Plan
Assessment / Plan
Physical Exam
General: No Apparent Distress, Comfortable and Conversant
HEENT: Moist mucous membranes, Atraumatic
Respiratory: Clear
Cardiac: S1/S2; No Tachycardia
GI: Soft, Non Tender, Non Distended and Normal Bowel Sounds
Genito-urinary: No costovertebral tender
Musculoskeletal: No Edema
Neuro: Oriented and Nonfocal/grossly intact; No Slurred Speech
Psych: Calm; No Confused or Anxious
# Change in mental status, likely due to seizure from fever.
He seemed to be back to baseline. Currently oriented x 3 for > 48 hours.
He follows commands. Nonfocal.
No headache. No blurred vision.
CAT scan of the head, no acute findings.
Patient was evaluated by neurologist. Recommendation to continue Keppra, Tegretol and Xcopri
Appreciate neurology input
# Acute recurrent sigmoid diverticulitis.
Patient did not have pain or her usual presentation of diverticulitis. He had fever and was admitted due to change in mental status/cluster seizure.
No more fever. No GI symptoms. Tolerating diet. Mild discomfort on deep palpation left lower quadrant.
Patient had recent diverticulitis and he did not have typical presentation also. He was treated with antibiotics and discharged on oral antibiotic, finish course. He saw GI doctor on December 09 in outpatient setting and plan to hold off on colonoscopy
as patient did not have symptoms.
Consulted GI, appreciate input. Outpatient follow-up. On ceftriaxone, and Flagyl
# History of chronic pulmonary hypertension/ Chronic HFrEF
[id number]/[id number] LV size. EF 45 to 50%. Reduced RV systolic function. Severely dilated LA. Moderately dilated RA. Mild MR. Mild to moderate AAS. Severe TR. Pulmonary artery pressure 60 to 65 mmHg.
No history of shortness of breath. No changes intended
# Paroxysmal atrial fibrillation, warfarin anticoagulation
INR now subtherapeutic, increase Coumadin to 6 mg
No history of palpitation
# History of gait dysfunction. CAT scan of the head no acute abnormality.
Eventual PT/OT evaluation. Patient uses wheelchair a stair lift at home
# Primary hypertension-continue clonidine patch, minoxidil and Norvasc
# GERD-continue PPI
# Chronic anemia-
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
# Sleep apnea- states that patient lost weight and had seen Dr. Pace. He does not need to use CPAP anymore.
# DVT prophylaxis-elevated INR
# CODE STATUS- Full code
Anticipated Discharge: Within 24 hours
Subjective/Interval History
-
Date of Service: December 16, 2024
Denies nausea
Objective Data
-
Labs:
Laboratory Results
12/16/24
07:52
WBC 7.3
Hgb 10.3 L
Hct 30.7 L
Plt Count 258 D
PT 19.5 H
INR 1.62
Sodium 143
Potassium 4.8
Chloride 105
Carbon Dioxide 29
BUN 19
Creatinine 1.0
Glucose 117 H
Calcium 9.3
Vital Signs:
Vital Signs
Temp Pulse Resp BP Pulse Ox
97.9 F 65 18 131/58 97
12/16/24 07:00 12/16/24 12:53 12/16/24 07:00 12/16/24 12:53 12/16/24 08:35
I&O
12/15/24 12/16/24 12/17/24
06:59 06:59 06:59
Intake Total 2200 / 2200 720 / 720
Output Total 925 / 925 1974
Balance 1275 / 1275 -1255 / -1250
[2024-12-16 15:00] VITALS: BP 157/63
[2024-12-16] MEDS: VITAMIN C 250 MG PO (17:09)
[2024-12-16] MEDS: COUMADIN 6 MG PO (17:09)
[2024-12-16] MEDS: STERILE WATER FOR INJECTION 10 ML IV (17:10)
[2024-12-16] MEDS: FLOMAX 0.4 MG PO (17:10)
[2024-12-16] MEDS: NON-FORMULARY ITEM 1 MG PO (17:11)
[2024-12-16] MEDS: ROCEPHIN 1000 MG IV (17:11)
[2024-12-16 23:49] VITALS: BP 140/66
[2024-12-17] MEDS: FLAGYL 500 MG PO ×3 (00:08→15:00)
[2024-12-17 07:00] VITALS: BP 147/60
--- NOTE | 2024-12-17 07:29 | PN.CDI ---
CDI
- -
CDI:
Physician Documentation Request
Admit Date: 12/13/24 10:29
Dear Doctor Manny,
Please review the following and provide your response in the progress notes.
Clinical Indicators:
- 12/16 PN 'Change in mental status, likely due to seizure from fever'
- 12/13 ER Physician ' noticed increase confusion and was concerned'
- 'here with waxing and waning confusion/blank staring sometimes '
- 12/13 Neurology 'His typical seizure semiology is encephalopathy, presenting similar to this'
Please specify the known or suspected type of the documented encephalopathy and etiology of change of mental status.
Metabolic
Toxic metabolic
Due to a specified condition (such as UTI, hyponatremia, CVA etc)
Other (please specify)
Use of terms such as suspected, likely, concern for, or probable (associated with a specific diagnosis that is being evaluated, monitored, or treated as if it exists) are acceptable and can be coded in the inpatient setting, when documented at the
time of discharge.
Thank you,
Dougie Burton RN
CDI Specialist
Please use your independent medical judgment in providing your response.
[2024-12-17 07:41] LABS: % Basophils 0.7 % (0-2); % Eosinophils 6.9 % (0-6); % Immature Granulocytes 0.3 % (0-0.5); % Lymphocytes 18.9 % (20.5-51.1); % Monocytes 8.6 % (1.7-9.3); % Neutrophils 64.6 % (42.2-75.2); Absolute Basophils 0.1 10^3/uL (0-0.2); Absolute Eosinophils 0.5 10^3/uL (0-0.7); Absolute Lymphocytes 1.3 10^3/uL (1.2-3.4); Absolute Monocytes 0.6 10^3/uL (0.1-0.6); Absolute Neutrophils 4.5 10^3/uL (1.4-6.5); Hematocrit 26.8 % (39.0-52.0); Hemoglobin 9.1 g/dL (13.0-18.0); Mean Corpuscular Volume 97.1 fL (80.0-94.0); Mean Platelet Volume 10.5 fL (7.4-10.4); Nucleated Red Blood Cells % 0 % (-); Platelet Count 232 10^3/uL (130-400); Red Blood Cell Count 2.76 10^6/uL (4.70-6.10); Red Cell Dist. Width 11.9 % (11.5-14.5); White Blood Cell Count 6.9 10^3/uL (4.8-10.8)
[2024-12-17 07:50] LABS: INR 1.72; PT 20.6 Sec (11.4-14.6)
[2024-12-17 08:23] LABS: Blood Urea Nitrogen 22 mg/dl (9-20); Calcium 9.1 mg/dl (8.4-10.2); Carbon Dioxide 30 mmol/L (22-30); Chloride 103 mmol/L (98-107); Estimated Creatinine Clearance 50 ml/min; Glucose 99 mg/dl (70-99); Potassium 4.3 mmol/L (3.5-5.1); Sodium 140 mmol/L (135-145); eGFR > 60.00
[2024-12-17] MEDS: LONITEN 10 MG PO (08:27)
[2024-12-17] MEDS: TEGRETOL XR (EXTENDED RELEASE) 400 MG PO (08:27)
[2024-12-17] MEDS: KEPPRA 1500 MG PO (08:28)
[2024-12-17] MEDS: KEPPRA 250 MG PO (08:28)
[2024-12-17] MEDS: LASIX 40 MG PO (08:28)
[2024-12-17] MEDS: METAMUCIL, KONSYL 1 PACKET PO (08:28)
[2024-12-17] MEDS: NORVASC 2.5 MG PO (08:28)
[2024-12-17] MEDS: PROTONIX 40 MG PO (08:28)
[2024-12-17 11:17] VITALS: BP 157/74
--- NOTE | 2024-12-17 11:35 | CM ---
CM reviewed chart, patient seen bedside, for discharge today. Offered VN to patient, declining at this time. IMM verbally reviewed, provided with copy, placed in chart. Patient reports his will transport home. CM will continue to follow for all
discharge planning needs.
Plan; home no needs.
--- NOTE | 2024-12-17 12:22 | W.PN.HOSP.TC ---
Today's Communication/Plan
-
Monitor vitals
See plan
Switch to p.o. antibiotics
Discharge today
Time of discharge 38 minutes
Assessment / Plan
Assessment / Plan
Physical Exam
General: No Apparent Distress, Comfortable and Conversant
HEENT: Moist mucous membranes, Atraumatic
Respiratory: Clear
Cardiac: S1/S2; No Tachycardia
GI: Soft, Non Tender, Non Distended and Normal Bowel Sounds
Genito-urinary: No costovertebral tender
Musculoskeletal: No Edema
Neuro: Oriented and Nonfocal/grossly intact; No Slurred Speech
Psych: Calm; No Confused or Anxious
# Change in mental status, likely due to seizure from fever.
possible Metabolic encephalopathy secondary to seizure
He seemed to be back to baseline. Currently oriented x 3 for > 48 hours.
He follows commands. Nonfocal.
No headache. No blurred vision.
CAT scan of the head, no acute findings.
Patient was evaluated by neurologist. Recommendation to continue Keppra, Tegretol and Xcopri
Appreciate neurology input
# Acute recurrent sigmoid diverticulitis.
Patient did not have pain or her usual presentation of diverticulitis. He had fever and was admitted due to change in mental status/cluster seizure.
No more fever. No GI symptoms. Tolerating diet. Mild discomfort on deep palpation left lower quadrant.
Patient had recent diverticulitis and he did not have typical presentation also. He was treated with antibiotics and discharged on oral antibiotic, finish course. He saw GI doctor on December 09 in outpatient setting and plan to hold off on colonoscopy
as patient did not have symptoms.
Consulted GI, appreciate input. Outpatient follow-up. On ceftriaxone, and Flagyl. switch abx to PO
# History of chronic pulmonary hypertension/ Chronic HFrEF
08/25/[id number] LV size. EF 45 to 50%. Reduced RV systolic function. Severely dilated LA. Moderately dilated RA. Mild MR. Mild to moderate AAS. Severe TR. Pulmonary artery pressure 60 to 65 mmHg.
No history of shortness of breath. No changes intended
# Paroxysmal atrial fibrillation, warfarin anticoagulation
INR now subtherapeutic, cw Coumadin; patient for repeat INR check outpatient
No history of palpitation
# History of gait dysfunction. CAT scan of the head no acute abnormality.
PT/OT. Patient uses wheelchair a stair lift at home
# Primary hypertension-continue clonidine patch, minoxidil and Norvasc
# GERD-continue PPI
# Chronic anemia-
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
# Sleep apnea- states that patient lost weight and had seen Dr. Pace. He does not need to use CPAP anymore.
# DVT prophylaxis-elevated INR
# CODE STATUS- Full code
Anticipated Discharge: Today
Subjective/Interval History
-
Date of Service: December 17, 2024
denies pain
Objective Data
-
Labs:
Laboratory Results
12/17/24
07:03
WBC 6.9
Hgb 9.1 L
Hct 26.8 L
Plt Count 232
PT 20.6 H
INR 1.72
Sodium 140
Potassium 4.3
Chloride 103
Carbon Dioxide 30
BUN 22 H
Creatinine 1.1
Glucose 99
Calcium 9.1
Vital Signs:
Vital Signs
Temp Pulse Resp BP Pulse Ox
98.0 F 64 18 147/60 100
12/17/24 07:00 12/17/24 08:27 12/17/24 07:00 12/17/24 08:27 12/17/24 07:00
I&O
12/16/24 12/17/24 12/18/24
06:59 06:59 06:59
Intake Total 720 / 720 960 / 960
Output Total 1974 1170 / 1170
Balance -1255 / -1255 -210 / -210
--- NOTE | 2024-12-17 12:29 | W.DCSUMMARY ---
Discharge Summary
Discharge Data
Date of Admission: 12/13/24
Date of Discharge: 12/17/24
-
Pending Results: No
Hospital Course
84-year-old male with past medical history of diverticulitis, chronic pulmonary hypertension, chronic CHF, atrial fibrillation, ambulatory dysfunction, hypertension, GERD, chronic anemia, right upper lobe adenocarcinoma status post lobectomy, sleep
apnea came to the hospital with change in mental status with possibility of seizure along with fever. Patient was seen by neurology who recommended to continue patient's medications that he is already on at home. It was determined that patient
symptoms could likely be secondary to recurrent sigmoid diverticulitis. Patient was seen by GI and was instructed to follow-up with them closely outpatient. Patient was initially started on IV antibiotics which improved his symptoms. His mental
status continue to improve and he was back to his baseline mental status prior to discharge. Since he was able to tolerate diet and was improving, he was then discharged home with instructions to follow-up with all his physicians outpatient.
Discharge Plan
-
Patient Disposition: Home (Routine Discharge)
Discharge Diagnosis/Procedures: Acute recurrent sigmoid diverticulitis
Possible metabolic encephalopathy secondary to seizure
Subtherapeutic INR
Diet: As tolerated
Activity: As tolerated
Driving Restrictions: As prior to admission
Bathing Restrictions: None
Blood Work: INR check in 2-3 days with primary care provider
Referrals:
Robin Garcia MD [Family Provider] - in less than 1 week
Geno Omer MD [Active] - (follow up with Dr. Omer or ROB to discuss colonoscopy with recurrent diverticulitis )
Prescriptions:
New
metronidazole 500 mg Tablet
500 mg PO Q8 7 Days Qty: 21 0RF
cefdinir 300 mg capsule
300 mg PO BID Qty: 14 0RF
Continued
minoxidil 10 mg Tablet
10 mg PO BID
furosemide 40 mg Tablet
40 mg PO DAILY
warfarin 1 mg Tablet
5.5 mg PO QPM
cyanocobalamin (vitamin B-12) 1,000 mcg tablet
1,000 mcg PO DAILY
pantoprazole 40 mg tablet,delayed release (DR/EC)
40 mg PO DAILY
Xcopri 200 mg Tablet
200 mg PO QPM
clonidine 0.2 mg/24 hr patch weekly
0.2 mg transdermal WE 30 Days Qty: 4 0RF
amlodipine 2.5 mg Tablet
2.5 mg PO DAILY
carbamazepine 200 mg tablet extended release 12 hr
400 mg PO BID
levetiracetam 500 mg tablet
1,750 mg PO BID
lorazepam 1 mg tablet
1 mg PO Q6HPRN PRN (Reason: anxiety)
Vitamin C 100 mg Tablet
100 mg PO QPM
silodosin 8 mg Capsule
8 mg PO QPM
psyllium Packet
1 packet PO DAILY
Discharge Orders:
Discharge Patient (As Directed); Ordered 12/17/24
Ordered By: Dorian Byrant
Discharge Date and Time
Discharge Date/Time: 12/17/24 15:36
Print Language: UZBEK
[2024-12-17 15:00] VITALS: BP 136/64
== END 2024-12-17 15:36 | disposition home or self-care (01) | DRG 100 ==
LOC: 4 WEST ACU 10:29
PROVIDERS: Physician Assistant; ADMITTING PHYSICIAN Internal Medicine; ATTENDING PHYSICIAN Internal Medicine; CONSULT PHYSICIAN Psychiatry & Neurology Clinical Neurophysiology; EMERGENCY PHYSICIAN Emergency Medicine; FAMILY PHYSICIAN Internal Medicine; OTHER PHYSICIAN Internal Medicine Gastroenterology
DX: R56.9 Unspecified convulsions (principal); G93.41 Metabolic encephalopathy; K57.32 Diverticulitis of large intestine without perforation or abscess without bleeding; F03.94 Unspecified dementia, unspecified severity, with anxiety; I13.0 Hypertensive heart and chronic kidney disease with heart failure and stage 1 through stage 4 chronic kidney disease, or unspecified chronic kidney disease; I50.22 Chronic systolic (congestive) heart failure; I27.20 Pulmonary hypertension, unspecified; Z79.01 Long term (current) use of anticoagulants; Z88.8 Allergy status to other drugs, medicaments and biological substances; I48.0 Paroxysmal atrial fibrillation; K21.9 Gastro-esophageal reflux disease without esophagitis; Z85.118 Personal history of other malignant neoplasm of bronchus and lung; Z79.899 Other long term (current) drug therapy; Z90.2 Acquired absence of lung [part of]; G47.33 Obstructive sleep apnea (adult) (pediatric); R79.1 Abnormal coagulation profile; Z85.820 Personal history of malignant melanoma of skin; N18.9 Chronic kidney disease, unspecified; E78.00 Pure hypercholesterolemia, unspecified; J45.909 Unspecified asthma, uncomplicated; N40.0 Benign prostatic hyperplasia without lower urinary tract symptoms; Z11.52 Encounter for screening for COVID-19; D63.1 Anemia in chronic kidney disease
CPT/HCPCS: 70450; 71046; 74177; 80048; 80053; 81003; 81015; 83605; 85025; 85027; 85610; 85730; 87040; 87502; 87811; 93005; 96360; 97116; 97163; 97166; 99285; Q9967

== ENCOUNTER → 2024-12-24 14:35 | Outpatient (REF) | payer MEDICARE, OTHER, SELFPAY ==
[2024-12-24 15:43] LABS: INR 3.23; PT 32.8 Sec (11.4-14.6)
== END ==
LOC: REG 14:35
PROVIDERS: ATTENDING PHYSICIAN Internal Medicine Cardiovascular Disease; FAMILY PHYSICIAN Internal Medicine
DX: I48.0 Paroxysmal atrial fibrillation (principal); Z79.01 Long term (current) use of anticoagulants
CPT/HCPCS: 36415; 85610

== ENCOUNTER 2024-12-27 18:22 | Inpatient (IN) | payer MEDICARE, OTHER, SELFPAY ==
[2024-12-27] VITALS (14 sets, daily range): BP systolic 105–160; BP diastolic 49–70; BMI 22.3
[2024-12-27 15:19] LABS: % Basophils 0.2 % (0-2); % Immature Granulocytes 0.9 % (0-0.5); % Lymphocytes 4.7 % (20.5-51.1); % Monocytes 4.8 % (1.7-9.3); % Neutrophils 89.4 % (42.2-75.2); Absolute Basophils 0.1 10^3/uL (0-0.2); Absolute Immature Granulocytes 0.2 10^3/uL (0-0.05); Absolute Neutrophils 18.1 10^3/uL (1.4-6.5); Hemoglobin 10.3 g/dL (13.0-18.0); Mean Corp Hgb Conc. 34.3 g/dL (33.0-37.0); Mean Corpuscular Hgb 33.6 pg (27.0-31.0); Mean Corpuscular Volume 97.7 fL (80.0-94.0); Mean Platelet Volume 10.2 fL (7.4-10.4); Nucleated Red Blood Cells % 0 % (-); Platelet Count 307 10^3/uL (130-400); Red Blood Cell Count 3.07 10^6/uL (4.70-6.10); Red Cell Dist. Width 12.2 % (11.5-14.5); White Blood Cell Count 20.3 10^3/uL (4.8-10.8)
[2024-12-27 15:32] LABS: Urine Albumin Negative (Neg - Trace); Urine Bilirubin Negative (Negative); Urine Character Clear (Clear); Urine Color Yellow; Urine Glucose Negative (Negative); Urine Ketone Negative (Negative); Urine Leukocyte Negative (Negative); Urine Nitrite Negative (Negative); Urine Occult Blood Negative (Negative); Urine Urobilinogen Negative (Neg - 1+)
[2024-12-27 15:34] LABS: ALT (SGPT) 16 U/L (0-50); AST (SGOT) 22 U/L (17-59); Albumin 3.9 g/dl (3.5-5.0); Alkaline Phosphatase 54 U/L (38-126); Blood Urea Nitrogen 25 mg/dl (9-20); Carbon Dioxide 29 mmol/L (22-30); Chloride 103 mmol/L (98-107); Estimated Creatinine Clearance 52 ml/min; Glucose 128 mg/dl (70-99); Potassium 4.1 mmol/L (3.5-5.1); Sodium 138 mmol/L (135-145); Total Bilirubin 0.4 mg/dl (0.2-1.3); Total Protein 7.1 g/dl (6.3-8.2); eGFR > 60.00
--- NOTE | 2024-12-27 16:56 | ED.GENMED ---
History of Present Illness
General
Chief Complaint: Change in Mental Status
Source: patient, records, spouse, previous radiology exam and previous hospital records
Exam Limitations: altered mental status
Time Seen by Provider: 12/27/24 16:09
Nursing documentation reviewed up to this point in time: agreed with
History of Present Illness
History of Present Illness:
84-year-old male history of seizure disorder followed by [facility] admitted recently with diverticulitis and confusion apparently thought to be confused due to his seizure no change in his meds/EEG discharged home on antibiotics saw the
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
was he was moving all extremities slowly but certainly not at his baseline he was sent for a CT of the head which I reviewed with no obvious abnormalities, full report pending, states he has been compliant with his antiepileptics,
Past History
Past History
ED Past Medical History: Asthma, Cancer (Lung), CHF, CVA, HTN, Hypercholesterolemia, Seizures and Other (COREY, C-pap at night, Meningitis, )
ED Past Surgical History: Tonsilectomy and Other (right lobectomy, Uvulectomy)
Social History
Tobacco: Non-smoker
Alcohol: None
Drug: None
Personal:
Living: with family
Employment: Retired
Family History
Family History: Other (reviewed and Noncontributory)
Review of Systems
Review of Systems
Unable to obtain full review of systems at this time due to: other (Confused postictal)
Other source history: family
All Other Systems: Not applicable
Phy Exam
Physical Exam
Physical Exam:
Physical Exam
General: 84-year-old male staring, very slow to respond
Neck: No lips
Heart: s1/s2 regular rate and rhythm, no murmur. equal radial pulses.
Lungs: no acute respiratory distress. clear bilaterally
Abdomen: Not
Neuro: Nonverbal staring does move all extremities very slow to respond to questions
Skin: no rash
Psychiatric: Unable to assess
Extremities: no edema.
Course
Orders/Labs/Results
Orders:
Orders
12/27/24 15:06
EKG [Electrocardiogram (*1)] Urgent
Reason for Study: Fatigue / Weakness
12/27/24 15:07
EKG- Treatment ONCE
12/27/24 15:08
Complete Blood Count/With Diff Urgent
Comprehensive Metabolic Panel Urgent
12/27/24 15:22
CT Head W/o Iv Contrast Urgent
Comment:
Reason For Exam: change in mental status
12/27/24 15:23
Urinalysis Reflex To Culture Urgent
Date Specimen was Collected: 12/27/24
Time Specimen was Collected: 15:00
12/27/24 16:29
Add On- LAB Urgent
Tests Added?: TEGRETOL
12/27/24 16:45
INR [Prothrombin Time] Urgent
Tegretol (Carbamazepine) Routine
Comment: NEEDS TO BE COLLECTED IN PLAN RED TUBE
12/27/24 16:51
Rapid EEG [Rapid Point of Care EEG (ED/ICU ONLY)] Q1H
Indications for use:: Altered Mental Status
12/27/24 17:19
Levetiracetam Injectable [Keppra] 2,500 mg IV NOW STA
Lorazepam [Ativan] 2 mg IV NOW STA
12/27/24 17:37
ABG [Arterial Blood Gas] Urgent
%Oxygen/Room Air: RA
CR Chest Portable - 1 View Urgent
Comment:
Reason For Exam: EZIURE
Reason Study Needs to be Portable: Patient Unstable
12/27/24 17:44
Lacosamide [Vimpat] 300 mg IV NOW STA
Abnormal Lab Results
12/27/24 12/27/24
15:08 16:45
WBC 20.3 H 10^3/uL
(4.8-10.8)
RBC 3.07 L 10^6/uL
(4.70-6.10)
Hgb 10.3 L g/dL
(13.0-18.0)
Hct 30.0 L %
(39.0-52.0)
MCV 97.7 H fL
(80.0-94.0)
MCH 33.6 H pg
(27.0-31.0)
Abs Immat Gran (auto) 0.2 H 10^3/uL
(0-0.05)
Absolute Neuts (auto) 18.1 H 10^3/uL
(1.4-6.5)
Absolute Lymphs (auto) 1.0 L 10^3/uL
(1.2-3.4)
Absolute Monos (auto) 1.0 H 10^3/uL
(0.1-0.6)
Immature Gran % 0.9 H %
(0-0.5)
Neutrophils % 89.4 H %
(42.2-75.2)
Lymphocytes % 4.7 L %
(20.5-51.1)
PT 33.4 H Sec
(11.4-14.6)
BUN 25 H mg/dl
(9-20)
Glucose 128 H mg/dl
(70-99)
12/27/24 15:08
12/27/24 15:08
Vital Signs
Initial and Last Documented VS:
Initial Vital Signs
Pulse Resp
84 16
12/27/24 14:50 12/27/24 14:50
Last Documented Vital Signs
Temp Pulse Resp BP Pulse Ox
98.7 F 82 14 137/51 95
12/27/24 17:09 12/27/24 17:00 12/27/24 17:00 12/27/24 17:00 12/27/24 17:00
MDM/Problems Addressed
Differential Diagnosis Includes:
Nonconvulsive status, seizure with prolonged postictal state electrolyte abnormality intracerebral hemorrhage encephalitis other HOG RIBBER infection
MDM/Problems Addressed:
Confusion
Chronic conditions affecting care: Neurological disorder
Acute Exacerbation and/or Progression of Chronic Illness: Neurological disorder
*Radiology
Radiology exam reviewed: preliminary read by ED provider and radiology read reviewed
*Pulse Oximetry
Patient hypoxic: no
*EKG
Interpreted by ED Provider?: Yes
Interpretation: abnormal
Comparison EKG: no comparison EKG present
Heart Rate: 78
Rate: normal
Rhythm: sinus
Ischemia: non-specific ST changes
*Wedding Designer Interpretation
Rate: normal
Interpretation: normal
Heart Rate: 78
Rhythm: sinus
*Critical Care Note
Total Time (30-74mins, 75-104mins- exclusive of procedures): 30
Data Reviewed
Review of Other/Old Records Reveals: Records
Source: patient, records and spouse
Prescriptions/Medications Considered But Not Given:
Dilantin
Further Testing Considered But Not Given:
MRI
Update Note
Update Note:
Update patient has been compliant with antiepileptics mental status has been off for almost [address] of the head noted urgent EEG ordered
Patient with elevated seizure-like activity on the EEG
Reviewed with neurology given benzodiazepine and higher dose of Keppra was almost immediate improvement in his symptoms he is now awake alert oriented, seizure activity is diminished on the device
Multiple conversations with neurologist electrical contractor hospitalist and nursing
ED Attending Note
-
Portions of this chart may have been created with voice recognition software.� Occasional wrong word or��sound alike� substitutions may have occurred due to the inherent limitations of voice recognition software.
Discharge Plan
Departure
Patient Disposition: Admit
Date of Disposition: 12/27/24
Time of Disposition: 17:54
Admit to: ICU
Presentation/result/management discussed w/ accepting MD/DO: Hospitalist
Patient with high blood pressure during this ER visit?: No
Condition: Serious
Discharge Problem:
Non-convulsive status epilepticus
Prescriptions:
No Action
minoxidil 10 mg Tablet
10 mg PO BID
furosemide 40 mg Tablet
40 mg PO DAILY
warfarin 1 mg Tablet
5.5 mg PO QPM
cyanocobalamin (vitamin B-12) 1,000 mcg tablet
1,000 mcg PO DAILY
pantoprazole 40 mg tablet,delayed release (DR/EC)
40 mg PO DAILY
Xcopri 200 mg Tablet
200 mg PO QPM
clonidine 0.2 mg/24 hr patch weekly
0.2 mg transdermal WE 30 Days Qty: 4 0RF
amlodipine 2.5 mg Tablet
2.5 mg PO DAILY
carbamazepine 200 mg tablet extended release 12 hr
400 mg PO BID
levetiracetam 500 mg tablet
1,750 mg PO BID
lorazepam 1 mg tablet
1 mg PO Q6HPRN PRN (Reason: anxiety)
Vitamin C 100 mg Tablet
100 mg PO QPM
silodosin 8 mg Capsule
8 mg PO QPM
psyllium Packet
1 packet PO DAILY
metronidazole 500 mg Tablet
500 mg PO Q8 7 Days Qty: 21 0RF
cefdinir 300 mg capsule
300 mg PO BID Qty: 14 0RF
Referrals:
Robin Garcia MD [Family Provider, Internal Medicine]
Interventions
Interventions:
*Risk Screen - Suicide Last Done: 12/27/24 14:52
*General Assessment Last Done: 12/27/24 14:52
*Neglect/Abuse Screening Last Done: 12/27/24 14:52
ED- Neurological Assessment Last Done: 12/27/24 15:20
Discharge Date and Time
Print Language: AMHARIC
[2024-12-27 17:10] LABS: INR 3.31; PT 33.4 Sec (11.4-14.6)
[2024-12-27 17:12] LABS: Tegretol (Carbamazepine) 8.1 ug/ml (4-12)
[2024-12-27] MEDS: ATIVAN 2 MG IV ×2 (17:21→21:21)
[2024-12-27] MEDS: KEPPRA 2500 MG IV (17:24)
--- NOTE | 2024-12-27 17:30 | HPS.HSE ---
Family Physician
-
Family Physician: Robin Garcia
Chief Complaint
-
Change in Mental Status
History of Present Illness
Patient is a 84 y/o male past medical history of seizure disorder, heart failure, atrial fibrillation on anticoagulation, hypertension, chronic kidney disease, lung cancer s/p lobectomy, chronic anemia and recent admission for diverticulitis who
presents with change in mental status. Additional history obtained from patient's at bedside. Patient was admitted to [facility] from December 13- with recurrent diverticulitis. He completed his coarse of antibiotics 3 days ago.
reports he was initially doing very well. Today noted upon wakening this morning patient as more confused and generally fatigued. Symptoms worsening over the coarse of the day to the point patient stopped talking and then he just went to
sleep. EMS was called. While in the ED he was placed on Ceribell brain monitoring which showed high seizure burden consistent with non-convulsant status ellipticus. He was given loading dose of levetiracetam and lorazepam. Monitor is now showing
decreasing seizure activity, and patient is now conversant and following commands. reports she gives patient his medications and he has not missed doses of his seizure medications.
Medical History
Past Medical History
Past Medical History: Reports Other
Additional Past Medical History:
Seizure Disorder
Chronic HFmrEF
Pulmonary Hypertension
Paroxysmal Atrial Fibrillation
Dyslipidemia
Essential Hypertension
Right Upper Lone Adenocarcinoma s/p Lobectomy
CKD Stage III
Chronic Anemia
BPH
History of melanoma
Colonic polyp status post polypectomy
Childhood meningitis
Ambulatory dysfunction
Cognitive dysfunction and decline
Past Surgical History: Reports Other
Additional Past Surgical History:
Right Upper Lobectomy
Melanoma Excision
Social History
Tobacco: Non-smoker
Alcohol: None
Drug: None
Family History
Family History: Not pertinent
Allergies / Home Medications
Allergies reflects when Allergies were last updated in [employer].
Home Medications with original date entered in [employer]
Allergy/Medication List:
Allergies
Allergy/AdvReac Type Severity Reaction Status Date / Time
hydralazine Allergy Unknown Verified 12/27/24 14:52
pollen extracts Allergy nasal Verified 12/27/24 14:52
symptoms
Home Medications
minoxidil 10 mg tablet 10 mg PO BID Blood Pressure 01/22/23
cyanocobalamin (vitamin B-12) 1,000 mcg tablet 1,000 mcg PO DAILY Supplement 10/17/23
furosemide 40 mg tablet 40 mg PO DAILY Fluid Retention/Swelling 10/17/23
pantoprazole 40 mg tablet,delayed release 40 mg PO DAILY Gastrointestinal Issue 10/17/23
warfarin 1 mg tablet 5 mg PO QPM Blood Clot Prevention/Tx 10/17/23
cenobamate 200 mg tablet (Xcopri) 200 mg PO QPM Seizures 05/27/24
clonidine 0.2 mg/24 hr weekly transdermal patch 0.2 mg transdermal WE Blood Pressure 30 days #4 ea 05/29/24
amlodipine 2.5 mg tablet 2.5 mg PO DAILY Blood Pressure 07/15/24
carbamazepine 200 mg tablet,extended release,12 hr 400 mg PO BID Seizures 07/15/24
levetiracetam 500 mg tablet 1,750 mg PO BID seizures 07/15/24
lorazepam 1 mg tablet 1 mg PO Q6HPRN PRN anxiety 07/15/24
ascorbic acid (vitamin C) 100 mg tablet (Vitamin C) 100 mg PO QPM Supplement 10/24/24
silodosin 8 mg capsule 8 mg PO QPM Urinary Issue 10/24/24
psyllium 1 packet PO DAILY Gastrointestinal Issue 12/13/24
Review of Systems
-
Unable to obtain full review of systems at this time due to: Acuity
Physical Exam
Vital Signs
Vital Signs
Temp Pulse Resp BP Pulse Ox
98.7 F 69 12 110/49 93
12/27/24 17:09 12/27/24 16:00 12/27/24 16:00 12/27/24 16:00 12/27/24 16:00
Physical Exam
General: No Apparent Distress and Conversant
HEENT: Anicteric and Moist mucous membranes
Respiratory: Clear and Non Labored Respirations
Cardiac: S1/S2 and Regular Rhythm; No Tachycardia
GI: Soft and Non Tender
Rectal: Deferred by Provider
Musculoskeletal: No Clubbing, No Cyanosis and No Edema
Skin: Warm and Dry
Neuro: Awake, Alert, No Motor Deficits and Other (Speech is slow but clear)
Psych: Calm
Laboratory Results
-
12/27/24 15:08
12/27/24 15:08
Laboratory Results
PT 33.4 Sec (11.4-14.6) H 12/27/24 16:45
INR 3.31 12/27/24 16:45
Total Bilirubin 0.4 mg/dl (0.2-1.3) 12/27/24 15:08
AST 22 U/L (17-59) 12/27/24 15:08
ALT 16 U/L (0-50) 12/27/24 15:08
Alkaline Phosphatase 54 U/L (38-126) 12/27/24 15:08
Data Reviewed
-
Lab Data: Labs Reviewed by me
Old Records: Reviewed
Impression/Plan
-
Non-Convulsant Status Epilepticus
-Patient recently completed coarse of cefdinir for diverticulitis which may have lowered seizure threshold
-Admit to ICU for continuous EEG monitoring
-Reviewed with Neurology
-Add Vimpat 100mg BID
-Continue Keppra, Tegretol and Xcopri as prior to admission
Leukocytosis, likely reactive following seizure
-Continue to trend
-Monitor for fevers
Chronic HFmrEF
-Continue Lasix
-Monitor Daily Weights
Paroxysmal Atrial Fibrillation
-Hold warfarin tonight due to elevated INR
-Monitor INR daily
Essential Hypertension
-Continue clonidine patch, amlodipine, minoxidil
CKD Stage III
-Creatinine at baseline
Chronic Anemia
-Hgb at baseline
GERD
-Continue Protonix
Hx Right Upper Lobe Adenocarcinoma s/p Lobectomy
DVT proph: Coumadin
Code Status: Full Code
[2024-12-27] MEDS: VIMPAT 300 MG IV (17:56)
[2024-12-27 18:08] LABS: B.E. 9.1 mmol/L; HCO3 34.1 mmol/L (21-28); O2 Saturation % 97.3 % (94-98); PCO2 48 mmHg (35-48); PO2 71 mmHg (83-108); pH 7.46 (7.35-7.45)
--- NOTE | 2024-12-27 18:40 | W.PN.UPDATE ---
Update Note
Progress Note Update
This is an addendum to H&P written by Janet Bermudez on 12/27/2024.� Patient seen and examined independently with PA.
84-year-old male past medical history of seizures, recurrent diverticulitis, chronic pulmonary hypertension, chronic CHF, paroxysmal atrial fibrillation on Coumadin, ambulatory dysfunction, hypertension, GERD, chronic anemia, right upper lobe
adenocarcinoma status post lobectomy, obstructive sleep apnea, childhood meningitis, presenting with feeling unwell this morning, slow and confused, sleepy worsening over the day.�
Vital signs normal.� Labs show leukocytosis.� INR 3.31.
CT head shows no acute intracranial abnormality.
Ceribell confirmed nonconvulsive status epilepticus with 93% seizure burden.� Patient received 2 mg Ativan and 2500 mg Keppra with improvement.� Neurology recommending lacosamide 300 mg loading dose followed by 100 mg twice daily in addition to
continuing Keppra and Xcopri and carbamazepine.� Neurology following.� Hold Coumadin.� Recheck INR in the morning.
Possible seizure threshold was lowered with recent cefdinir for diverticulitis.
--- NOTE | 2024-12-27 20:00 | W.PN.UPDATE ---
Update Note
Progress Note Update
12/27/24
1999- RN reported Ceribell EEG (rapid EEG) recorded 30-50% seizure burden. Patient sitting comfortable in bed, no active seizure noted or abnormal movements/speech. Dr. Edouard, neurologist, updated on increased seizure burden noted on Ceribell EEG
and recommended to give current antiepileptic oral medications that were due carbamazepine and Cenobamate (Xcopri) as well as Ativan IV. Patient given oral medications first and then 1mg IV ativan. Patient several minutes later did have 1x episode
of small vomiting, zofran IV given. Noted seizure burden now <10% on Ceribell EEG monitor.
[2024-12-27] MEDS: NON-FORMULARY ITEM 200 MG PO (20:41)
[2024-12-27] MEDS: TEGRETOL XR (EXTENDED RELEASE) 400 MG PO (20:41)
[2024-12-27] MEDS: FLOMAX 0.4 MG PO (20:47)
--- NOTE | 2024-12-27 22:00 | PTCARENOTE ---
pt arrived to unit with ceribell on and functioning properly, on arrival pt was 10% seizure burden, pt AAOx4, drowsy and slow responses, denies pain and SOB at this time, SR on the monitor SCDs on, holding anticoag overnight per MD, 2L NC needed
while sleeping, no BM, takes pills whole with thins, incontinent x1, condom cath applied, sacrum red, foam applied, call urban in reach
[2024-12-27] MEDS: LONITEN PO (23:03)
[2024-12-28] VITALS (25 sets, daily range): BP systolic 102–163; BP diastolic 36–73; BMI 21.8
--- NOTE | 2024-12-28 00:43 | PTCARENOTE ---
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
[2024-12-28 03:24] LABS: Venous Blood Gas B.E. 7.1 mmol/L (-4 to +4); Venous Blood Gas pCO2 52 mmHg (35-48); Venous Blood Gas pH 7.41 (7.32-7.43); Venous Blood Gas pO2 203 mmHg (30-50)
[2024-12-28 03:30] LABS: Hematocrit 28.6 % (39.0-52.0); Hemoglobin 9.9 g/dL (13.0-18.0); Mean Corp Hgb Conc. 34.6 g/dL (33.0-37.0); Mean Corpuscular Hgb 33.8 pg (27.0-31.0); Mean Corpuscular Volume 97.6 fL (80.0-94.0); Mean Platelet Volume 10.2 fL (7.4-10.4); Platelet Count 264 10^3/uL (130-400); Red Blood Cell Count 2.93 10^6/uL (4.70-6.10); Red Cell Dist. Width 12.2 % (11.5-14.5); White Blood Cell Count 15.2 10^3/uL (4.8-10.8)
[2024-12-28 03:42] LABS: INR 3.36; PT 33.8 Sec (11.4-14.6)
[2024-12-28 04:39] LABS: Blood Urea Nitrogen 27 mg/dl (9-20); Carbon Dioxide 29 mmol/L (22-30); Chloride 104 mmol/L (98-107); Estimated Creatinine Clearance 57 ml/min; Glucose 130 mg/dl (70-99); Potassium 4.1 mmol/L (3.5-5.1); Sodium 140 mmol/L (135-145); eGFR > 60.00
--- NOTE | 2024-12-28 07:40 | CON.NEURO ---
Neuro Assessment/Plan
Assessment
IMPRESSIONS
Abrupt change in mental status followed by testing by Ceribell device demonstrating status epilepticus, remediated by medication in the ED with gradual worsening again by device measurement
Prior medications have included: Lacosamide, Levetiracetam, Carbamazepine, Cenobamate
Plan
RECOMMENDATIONS:
check Carbamazepine levels
eventual outpatient advancement of Cenobamate from 200 mg to 300 mg, outpatient RX sent 25 mg increment increases weekly until 300 mg
continue Levetiracetam
will discontinue Lacosamide prior to discharge
no clear evidence of need for neuroimaging or additional EEG monitoring due to presumed poor control
Will continue to follow patient. Thank you.
Consultation
Order
Date of Consultation: 12/28/24
Requesting Provider: Hospitalists
Reason for Consult: Intractable seizures
Subjective/Objective
Subjective Data
Date of Service: December 28, 2024
Adapted from our outpatient records:
'Had hospitalization in December/January 2023 where he presented with vomiting, hypoxia, then had non-convulsive status epilepticus requiring aggressive anti seizure medication treatment including Lacosamide, Levetiracetam, and Carbamazepine. He did
require intubation with respiratory function worsening a few hours after admission. Carbamazepine level on admit was 17.8. Prior to hospitalization he had been on Levetiracetam and Carbamazepine and had been about 1 year previous in December 2021, he
had been on Levetiracetam 750 mg BID and Carbamazepine 900 mg BID prior to the hospitalization. He has had a history of epilepsy since age 4 when he had meningitis.
He is accompanied by his today. Says he is doing pretty well. No seizures since discharge from hospital in January 2023.
Making improvements with walking, still using some assistance with walker but much better. Doing dedicated physical exercise.
When walking unaided not getting dizzy, once when stood up too fast got a little bit dizzy.
Current seizure medications and doses
Carbamazepine 600 mg BID
Levetiracetam 1500 mg BID
Lacosamide 100 mg BID
Previous seizure medications:
Valproic acid, Levetiracetam, Lacosamide
Since last evaluation:
10/2023
Lacosamide, started Cenobamate, now 12.5 mg
No longer having fogginess since last re-hospitalization in 10/2023
Tolerating medication well
Short-term memory issues
From evaluation with Carly Huggins, 01/09/2024:
'Pt seen in the office today with his . He has been seizure free since starting and increasing Cenobamate.
He continues on
Carbamazepine 800 mg BID
Levetiracetam 1500 mg BID
Cenobamate 150 mg daily-this will increase to 200 mg daily next week
He reports memory has been stable.
No new falls or confusion. No new neurologic complaints.'
05/23: Today is my first time seeing him. Reports having STM issues for about one year. It has been particularly worse the past few months. He repeats the same questions over and over. He went on a trip to [place] and missed his medications the second
day. He was confused 1-2 hours that day and then was also confused the following day.
Tegretol level on 01/16/24 was normal at 9.9.
(08/05/2024)
Pt encounter via telemedicine.
He has been seizure free.
He continues on
Levetiracetam 1750 mg BID
Carbamazepine 800 mg BID
Cenobamate 200 mg daily
They would like to continue on current medication regimen and has no adverse side effects, however Cenobamate is over 300.00 a month, and they have not qualified for financial assistance.
They are planning to try and reapply for assistance.
Of note, he was in the hospital in June for UTI, did have some confusion but know seizure activity.
Today (12/26/2024)
Pt seen in the office today with his . Since his last visit he was in the hospital 12/13/2024 with change in mental status and was found to have diverticulitis. It was though he had possible breakthrough seizure activity. No overt seizure
activity.
Ct head with no acute intracranial abnormality.
He continues on:
Levetiracetam 1750 mg BID
Carbamazepine 800 mg BID
Cenobamate 200 mg daily
He is doing well. Memory has been stable if not has improved.'
Patient returned to this hospital's emergency department yesterday with a change in mental status according to the patient's . At the time of presentation the patient underwent rapid EEG evaluation which suggested status epilepticus. The
patient then received lorazepam 2 mg which according to the advice completely remediated the patient's status. The patient was then transferred to the intensive care unit at which time the device suggested a worsening of seizure control. Recently,
there was an exposure to ABX due to infection.
Objective Data
Vital Signs
Temp Pulse Resp BP Pulse Ox
36.1 C 64 16 163/65 99
12/28/24 07:00 12/28/24 06:00 12/28/24 06:00 12/28/24 06:00 12/28/24 06:00
Lab Results
12/28/24 03:14
12/28/24 04:13
PT 33.8 Sec (11.4-14.6) H 12/28/24 03:14
INR 3.36 12/28/24 03:14
Sodium 140 mmol/L (135-145) 12/28/24 04:13
Potassium 4.1 mmol/L (3.5-5.1) 12/28/24 04:13
BUN 27 mg/dl (9-20) H 12/28/24 04:13
Glucose 130 mg/dl (70-99) H 12/28/24 04:13
Calcium 9.0 mg/dl (8.4-10.2) 12/28/24 04:13
Patient Allergies
hydralazine Allergy (Verified 12/27/24 14:52)
Unknown
pollen extracts Allergy (Verified 12/27/24 14:52)
nasal symptoms
Physical Exam
-
General: No Apparent Distress and Appears Stated Age
Eyes: Round OU, [place] Conjunctivae and No Ptosis
HEENT: Anicteric and Moist Mucous Membranes
Neck: Full Range of Motion
Respiratory: No Dyspnea
Cardiac: No JVD
GI: Non-distended
Skin: Unremarkable
Extremities: No Clubbing, No Cyanosis and No Edema
Psych: Intact Judgement/Insight
Extended Neurological Exam
Mood & Affect: Mood Unremarkable and Affect Unremarkable
Attention Span & Concentration: Awake, Interactive, Lethargic, Closes Eyes after Stimulation, Unable to Perform 2 Step Request and Other (Moderate difficulty with one-step requests); Negative Alert
Memory: Able to Recall (Current location) and Unable to Recall Personal History
Tremor: Hand Tremor Absent and Head Tremor Absent
Speech: Quality Unremarkable and Quantity Unremarkable
Cranial Nerve II: Left Eye: Pupillary Reactivity Unremarkable, Pupillary Size Unremarkable and Visual Brandt Intact
Cranial Nerve II: Right Eye: Pupillary Reactivity Unremarkable, Pupillary Size Unremarkable and Visual Brandt Intact
Cranial Nerves III, IV, : Extraocular Movement: Extraocular Movement Full in all Directions
Cranial Nerve VII: Facial Symmetry: Normal Facial Symmetry
Cranial Nerve VIII: Hearing: Unremarkable Hearing to Normal Conversational Volume
Cranial Nerves IX, X: Palate Movement: Palate Elevation Symmetric
Cranial Nerve XI: Shoulder Shrug: Unremarkable
Cranial Nerve XII: Tongue Protusion: Midline
Muscle Strength, Overall: Full Throughout
Muscle Bulk & Tone: Bulk Unremarkable and Tone Unremarkable
Pronator Drift: No Drift in Upper Extremities
Deep Tendon Reflexes: Trace Throughout
Touch Sensation: Unremarkable
Coordination: [id number] Testing Unremarkable
Babinski Sign: Absent Bilaterally
Gait & Station: Unable to Assess
Data Reviewed
-
EEG: Report Reviewed
Labs: Report Reviewed
Reviewed with: Physician, Nurse, Patient and Family
Old Records: Summarized
Medications
-
Active Medications
Generic Name Dose Route Start Last Admin
Trade Name Freq PRN Reason Stop Dose Admin
Acetaminophen 650 mg 12/27/24 19:53
Acetaminophen 325 Mg Tablet PO 01/24/25 19:52
Q4HPRN PRN
mild pain/ fever>100.5F
Amlodipine Besylate 2.5 mg 12/28/24 08:00
Amlodipine 2.5 Mg Tablet PO 01/25/25 07:59
DAILY VIRAJ
Carbamazepine 400 mg 12/27/24 20:00 12/27/24 20:41
Carbamazepine 400 Mg Extended Release (12 Hour) Tablet PO 01/24/25 19:59 400 mg
BID VIRAJ Administration
Clonidine HCl 0.2 mg 01/01/25 08:00
Clonidine 0.2 Mg Patch TRANSDERM 01/29/25 07:59
WE VIRAJ
Cyanocobalamin 1,000 mcg 12/28/24 08:00
Cyanocobalamin 1,000 Mcg Tablet PO 01/25/25 07:59
DAILY VIRAJ
Furosemide 40 mg 12/28/24 08:00
Furosemide 40 Mg Tablet PO 01/25/25 07:59
DAILY VIRAJ
Lacosamide 100 mg 12/28/24 08:00
Lacosamide (Vimpat) 100 Mg Tablet PO 01/25/25 07:59
BID VIRAJ
Levetiracetam 1,750 mg 12/28/24 08:00
Levetiracetam 500 Mg Regular Release Tablet PO 01/25/25 07:59
BID VIRAJ
Lorazepam 1 mg 12/27/24 21:50
Lorazepam 2 Mg/Ml Vial IV 01/24/25 19:52
Q4HPRN PRN
breakthrough seizure
Minoxidil 10 mg 12/27/24 20:00 12/27/24 23:03
Minoxidil 10 Mg Tablet PO 01/24/25 19:59 Not Given
BID VIRAJ
Cenobamate [Xcopri] 0 mg 12/27/24 19:53 12/27/24 20:41
50mg Tablet - 4 PO 01/24/25 19:52 200 mg
Tablets (200mg) Po QPM VIRAJ Administration
Qpm
Ondansetron HCl 4 mg 12/27/24 21:27
Ondansetron 4 Mg/2 Ml Vial IV 01/24/25 21:26
Q6HPRN PRN
NAUSEA/VOMITING
Pantoprazole Sodium 40 mg 12/28/24 08:00
Pantoprazole 40 Mg Delayed Release Tablet PO 01/25/25 07:59
DAILY VIRAJ
Psyllium Hydrophilic Mucilloid 1 packet 12/28/24 08:00
Psyllium Packet PO 01/25/25 07:59
DAILY VIRAJ
Sodium Chloride 0 flush 12/27/24 20:00
Sodium Chloride 0.9% (Flush) Syringe IV 01/24/25 19:59
PER PROTOCOL VIRAJ
Sodium Chloride 0.5 ml 12/27/24 21:50
Nss (Pf) 10 Ml Vial For Ativan 1 Mg Dose IV 01/24/25 21:49
Q4HPRN PRN
IV LORAZEPAM DILUTION
Tamsulosin HCl 0.4 mg 12/27/24 20:00 12/27/24 20:47
Tamsulosin 0.4 Mg Capsule PO 01/24/25 19:59 0.4 mg
QPM VIRAJ Administration
Home Medications
�Medication �Instructions �Recorded
minoxidil 10 mg tablet 10 mg PO BID Blood Pressure 01/22/23
cyanocobalamin (vitamin B-12) 1,000 mcg PO DAILY Supplement 10/17/23
1,000 mcg tablet
furosemide 40 mg tablet 40 mg PO DAILY Fluid 10/17/23
Retention/Swelling
pantoprazole 40 mg tablet,delayed 40 mg PO DAILY Gastrointestinal 10/17/23
release Issue
warfarin 1 mg tablet 5 mg PO QPM Blood Clot 10/17/23
Prevention/Tx
cenobamate 200 mg tablet (Xcopri) 200 mg PO QPM Seizures 05/27/24
clonidine 0.2 mg/24 hr weekly 0.2 mg transdermal WE Blood 05/29/24
transdermal patch Pressure 30 days #4 ea
amlodipine 2.5 mg tablet 2.5 mg PO DAILY Blood Pressure 07/15/24
carbamazepine 200 mg 400 mg PO BID Seizures 07/15/24
tablet,extended release,12 hr
levetiracetam 500 mg tablet 1,750 mg PO BID seizures 07/15/24
lorazepam 1 mg tablet 1 mg PO Q6HPRN PRN anxiety 07/15/24
ascorbic acid (vitamin C) 100 mg 100 mg PO QPM Supplement 10/24/24
tablet (Vitamin C)
silodosin 8 mg capsule 8 mg PO QPM Urinary Issue 10/24/24
psyllium 1 packet PO DAILY Gastrointestinal 12/13/24
Issue
Past History
Past History
ED Past Medical History: Asthma, Cancer (Lung, melanoma), CHF, CVA, HTN, Hypercholesterolemia, Seizures and Other (COREY C-pap at night, Childhood Meningitis)
ED Past Surgical History: Tonsilectomy and Other (right lobectomy, Uvulectomy)
Social History
Tobacco: Non-smoker
Alcohol: None
Drug: None
Personal:
Living: with family
Employment: Retired
Family History
Family History: Other (reviewed and Noncontributory)
[2024-12-28] MEDS: KEPPRA 1750 MG PO ×2 (07:54→19:51)
[2024-12-28] MEDS: LASIX 40 MG PO (07:56)
[2024-12-28] MEDS: TEGRETOL XR (EXTENDED RELEASE) 400 MG PO ×2 (07:56→19:52)
[2024-12-28] MEDS: LONITEN 10 MG PO (07:56)
[2024-12-28] MEDS: PROTONIX 40 MG PO (07:57)
[2024-12-28] MEDS: METAMUCIL, KONSYL 1 PACKET PO (07:57)
[2024-12-28] MEDS: NORVASC 2.5 MG PO (07:57)
[2024-12-28] MEDS: VIMPAT 100 MG PO ×2 (07:58→19:51)
--- NOTE | 2024-12-28 08:20 | CON.INTV ---
Consultation
Consultation Request
Date/Time Consultation Requested: 12/27/2024 - 1952
Date/Time Consultation Performed: 12/28/2024813
Requesting Provider: Janet Schultz PA-C
Performing Provider: Dr. Canales
Reason for Consultation: NCSE
Medical History
-
Chief Complaint: Change in mental status
History of Present Illness:
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
IGT, and facial melanoma s/p resection and history of colon polyps who presented with altered mental status. noticed patient was only able to speak 1�2 word sentences in the morning of 12/27. There was a similar episode reportedly about 1 week
prior on 12/13/2024 the patient was hospitalized here until 12/17 due to sigmoid diverticulitis. He was discharged home on Flagyl + cefdinir. He had finished the antibiotics this past Monday (12/24). When he came to the hospital, the Ceribell
device was placed onto the patient showing high seizure burden consistent with nonconvulsive status epilepticus. Case was discussed with neurology, and he was given lacosamide, Keppra and Ativan and admitted to the ICU for further care.
[employer] services consulted for additional management/recommendations.
When I saw the patient this morning, he was resting in bed in no acute distress. Remains lethargic and slow to respond but he does answer my questions appropriately. Patient's , Anne, present at bedside and all questions were answered.
Patient's currently on 1 L/min nasal cannula saturating 99% with heart rate 61 and BP 135/62. According to the the patient does not wear home oxygen. Patient is in no acute distress and has no complaints. He mainly is very tired.
Of note, patient previously had followed with us in the [facility] office with last visit on 06/29/[address] Pace. Patient has a history of moderate COREY but stopped using CPAP in October 2020 after he reportedly lost weight after being in hospice
about 3 years ago. Has history of mild intermittent asthma that he was advised to use albuterol HFA for if needed.
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
tolerance, history of colon polyps
PSHx: Right upper lobe resection, bilateral cataract surgery
Past Medical History
Past Medical History: Other (Above as per HPI)
Past Surgical History: Other (Above as per HPI)
Social History
Tobacco: Non-smoker
Alcohol: None
Drug: None
Personal:
Living: With Family
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
Family History
Family History: CAD (Mother; brother: in 70s of an CA) and Other (Brother: of a cerebral aneurysm at age 41)
Allergies / Home Medications
Allergies
Allergy/AdvReac Type Severity Reaction Status Date / Time
hydralazine Allergy Unknown Verified 12/27/24 14:52
pollen extracts Allergy nasal Verified 12/27/24 14:52
symptoms
Home Medications
�Medication �Instructions �Recorded �Confirmed �Last Taken �Type
minoxidil 10 mg tablet 10 mg PO BID Blood Pressure 01/22/23 12/27/24 12/12/24 History
cyanocobalamin (vitamin B-12) 1,000 mcg PO DAILY Supplement 10/17/23 12/27/24 12/12/24 History
1,000 mcg tablet
furosemide 40 mg tablet 40 mg PO DAILY Fluid 10/17/23 12/27/24 12/12/24 History
Retention/Swelling
pantoprazole 40 mg tablet,delayed 40 mg PO DAILY Gastrointestinal 10/17/23 12/27/24 12/12/24 History
release Issue
warfarin 1 mg tablet 5 mg PO QPM Blood Clot 10/17/23 12/27/24 12/12/24 History
Prevention/Tx
cenobamate 200 mg tablet (Xcopri) 200 mg PO QPM Seizures 05/27/24 12/27/24 12/12/24 History
clonidine 0.2 mg/24 hr weekly 0.2 mg transdermal WE Blood 05/29/24 12/27/24 12/13/24 Rx
transdermal patch Pressure 30 days #4 ea
amlodipine 2.5 mg tablet 2.5 mg PO DAILY Blood Pressure 07/15/24 12/27/24 12/12/24 History
carbamazepine 200 mg 400 mg PO BID Seizures 07/15/24 12/27/24 12/12/24 History
tablet,extended release,12 hr
levetiracetam 500 mg tablet 1,750 mg PO BID seizures 07/15/24 12/27/24 12/12/24 History
lorazepam 1 mg tablet 1 mg PO Q6HPRN PRN anxiety 07/15/24 12/27/24 Unknown History
ascorbic acid (vitamin C) 100 mg 100 mg PO QPM Supplement 10/24/24 12/27/24 12/12/24 History
tablet (Vitamin C)
silodosin 8 mg capsule 8 mg PO QPM Urinary Issue 10/24/24 12/27/24 12/12/24 History
psyllium 1 packet PO DAILY Gastrointestinal 12/13/24 12/27/24 12/12/24 History
Issue
Review of Systems
-
Unable to Obtain full review of systems at this time due to: Acuity
Vitals / Labs / Diagnostic Testing
Vital Signs
Temp Pulse Resp BP Pulse Ox
97.0 F 70 17 143/71 94
12/28/24 07:00 12/28/24 09:00 12/28/24 09:00 12/28/24 09:00 12/28/24 09:00
Lab Data
12/28/24 03:14
12/28/24 04:13
Laboratory Results
12/27/24 12/27/24 12/28/24
16:45 18:03 03:14
PT 33.4 H 33.8 H
INR 3.31 3.36
pH 7.46 H
pCO2 48
pO2 71 L
HCO3 34.1 H
O2 Delivery Level
Diagnostic Testing:
Physical Exam
-
HEENT: Normocephalic and Anicteric
Cardiovascular: S1/S2 and Peripheral Edema (negative)
Respiratory: Wheeze (negative), Rales (negative), Rhonchi (negative) and Non-Labored Respirations
GI: Soft, Non Distended, Non Tender and Normal Bowel Sounds
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
light touch on face, upper extremities and lower extremities; unable to do H test as he is uncooperative/does not understand my instructions; normal smile with no facial droop)
Skin: Warm and Dry
General: Respiratory Distress (negative), Comfortable, Chills (negative) and Sweats (negative)
Assessment
-
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
October 2020, IGT, and facial melanoma s/p resection and history of colon polyps who presented with altered mental status. noticed patient was only able to speak 1�2 word sentences in the morning of 12/27. There was a similar episode reportedly
about 1 week prior on 12/13/2024 the patient was hospitalized here until 12/17 due to sigmoid diverticulitis. He was discharged home on Flagyl + cefdinir. He had finished the antibiotics this past Monday (12/24). When he came to the hospital, the
Ceribell device was placed onto the patient showing high seizure burden consistent with nonconvulsive status epilepticus. Case was discussed with neurology, and he was given lacosamide, Keppra and Ativan and admitted to the ICU for further care.
[employer] services consulted for additional management/recommendations.
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
impaired glucose tolerance, history of colon polyps
Impression:
#Nonconvulsive status epilepticus, diagnosed via Ceribell device -suspected to be from recent antibiotics for diverticulitis (last day of antibiotics was 12/24/2024)
#Seizure disorder on multiple AEDs
#A-fib on Coumadin, currently NSR
#Hypertension
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
#CKD stage III
#History of melanoma involving the face s/p resection
#Ambulatory dysfunction
#History of COREY/CSA previously on BiPAP , no longer using since October 2020 after significant weight loss
#Mild intermittent asthma
#Aortic stenosis
Plan:
- Patient was found to be in nonconvulsive status epilepticus via Ceribell device, and was admitted to the ICU where he is currently being managed
- Defer antiepileptics to neurology � currently on Keppra 1750 BID, Vimpat 100 mg BID, Tegretol 400mg BID and Xcopri 200 mg qPM
- Per neurology, nonconvulsive status epilepticus has now resolved; okay to DC Ceribell now
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
- PT/OT
- Aspiration precautions; keep HOB >30-45�
- Maintain SpO2 >90-94%, weaning down supplemental O2 as tolerated
- If unable to wean off fully from oxygen then check ambulatory pulse oximetry prior to discharge
- Maintain MAP>65
- Replete electrolytes with K>4, Mg>2
- Maintain euglycemia with goal BG 140-180
- Trend H/H and transfuse if needed to keep Hb>7g/dL; keep plt>20k, unless there is concern for bleeding then keep plt>50k
- prn nebulized bronchodilators - not currently bronchospastic
- Once he awakens, then will encourage use of incentive spirometer 10x per hour for at least 4 hrs a day
- DVT ppx: SCDs only for now as INR is >3. Continue trending INR and if downtrending tomorrow towards 3.00 then will resume Coumadin tomorrow evening
Code status: Full code
Given his continued lethargic mental state, would continue with ICU level of care with close monitoring and neurochecks. Plan to downgrade out of ICU tomorrow depending on his clinical status.
Data:
CT Head 12/27/2024:
No acute intracranial abnormality noted.
Mild atrophy. Stable
Mild periventricular small vessel ischemic disease. Stable
Transthoracic echocardiogram 12/02/2024:
Left ventricle is small in size. Mild concentric left ventricular hypertrophy.
Normal regional wall motion. Normal left ventricular systolic function. Left
ventricular ejection fraction is 70% by Willingham's biplane method of discs.
Normal diastolic function.
Trileaflet aortic valve. Calcified aortic valve. Thickened aortic valve with
restricted leaflet motion. Mild to moderate aortic stenosis. Peak/mean
gradients across the valve are 37/20 mmHg. Using an LVOT of 2.0 cm the
calculated valve area is 1.2 cm2. Trace aortic regurgitation.
Since echo July 2023, ejection fraction has improved from 45-50% to 70%. TR
is improved from severe to trace. PA systolic pressure is decreased from 60-65
mmHg to 24 mmHg. Right ventricular systolic function is now normal.
Total time spent today was 76 minutes for this encounter. Time includes reviewing laboratory test/imaging results, reviewing pertinent medical records, obtaining and reviewing medical history, performing an appropriate exam, ordering medications,
tests and procedures. Time also includes documentation of this encounter, coordinating patient care and communicating with other healthcare professionals. Total time does not include separately billed tests performed on this date of service.
Patient was seen and evaluated on 12/28/2024
[2024-12-28] MEDS: VITAMIN B-12 1000 MCG PO (09:21)
--- NOTE | 2024-12-28 10:41 | PTCARENOTE ---
Received pt sleeping.Awakens to voice.Speech is slow but appropriate.Consistently follows commands.+WRIGHT.Generalized weakness noted.Ceribell EEG intact at 0700 and removed at 0945 as per MD order.No seizure activity noted.SR noted.Decreased breath
sounds throughout.POX 98% on O2 2l NC.Appetite fair.No BM.Skin integrity as documented.Pt's at bedside.Plan of care discussed.
--- NOTE | 2024-12-28 11:39 | W.PN.HOSP.TC ---
Today's Communication/Plan
-
See PN
Assessment / Plan
Assessment / Plan
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 POC EEG showed high burden
seizure activity, admitted for status epilepticus
A/P:
#Acute metabolic encephalopathy 2/2 status epilepticus with postictal state
Neurologist consult: outpatient advancement of Cenobamate from 200 mg to 300 mg, outpatient RX sent 25 mg increment increases weekly until 300 mg, Cont keppra, stop Lacosamide upon d/c, no need in additional imaging
Seizure precautions
#Cough
with PMHX of aspiration pneumonia and leukocytosis
Chest XR without new signs of pneumonia
leukocytosis improving - most likely seizure related
FOllow off Abx clinically
UA neg
#Afib, unspecified
#Supratherapeutic INR
follow INR
resatrt Coumading with lower dose when INR therapeutic (2.0-3.0)
#Chronic HFmrEF
#Essential HTN
#CKD stage 3
#Anemia of chornic disease
#GERD
cont home meds
#Hx Right Upper Lobe Adenocarcinoma s/p Lobectomy
Outpatient w/u for paraneoplastic syndrome
DVT ppx coumadin
full code
I have spent at least 58min reviewing chart, test results, communication with consultants, family and providing direct patient care
Anticipated Discharge: 24 - 48 hours
Subjective/Interval History
-
Date of Service: December 28, 2024
Objective Data
-
Labs:
Laboratory Results
12/28/24 12/28/24
03:14 04:13
WBC 15.2 H
Hgb 9.9 L
Hct 28.6 L
Plt Count 264
PT 33.8 H
INR 3.36
Sodium Cancelled 140
Potassium Cancelled 4.1
Chloride Cancelled 104
Carbon Dioxide Cancelled 29
BUN Cancelled 27 H
Creatinine Cancelled 1.0
Glucose Cancelled 130 H
Calcium Cancelled 9.0
Vital Signs:
Vital Signs
Temp Pulse Resp BP Pulse Ox
97.0 F 70 17 143/71 94
12/28/24 07:00 12/28/24 09:00 12/28/24 09:00 12/28/24 09:00 12/28/24 09:00
I&O
12/27/24 12/28/24 12/29/24
06:59 06:59 06:59
Intake Total 60 / 60 240 / 240
Output Total 220 / 220
Balance -160 / -160 240 / 240
Review of Systems
-
History Source: Patient and Family
All other systems: Reviewed and negative
Physical Exam
-
General: No Apparent Distress
HEENT: Normocephalic
Respiratory: Clear to Auscultation
Cardiac: Regular Rhythm
GI: Soft, Nontender and Nondistended
Musculoskeletal: No Clubbing, No Cyanosis and No Edema
Neuro: Awake, Alert, Sedated and Slurred Speech
Psych: Calm
--- NOTE | 2024-12-28 11:56 | CM ---
CM reviewed chart
Pt recently admitted to [facility] from 12/13-12/17, declined VN on dc
Pt resides with his spouse in a 2SH with 2 small half steps to enter
Pt has a stair glide to the 2nd floor
Pt is indep with his WW; spouse sets up clothing
Pt previously on service with Hospice and Palliative care, has since signed off
Pt has a hospital bed, stairglide, and shower chair
Has a W/C for use as needed
Hx with [facility] and VN
PCP- Robin Garcia
[facility]- Bill
Discharge Disposition-anticipate home, follow for needs
--- NOTE | 2024-12-28 12:22 | PTCARENOTE ---
Pt assessed.No change in assessment noted.
--- NOTE | 2024-12-28 13:08 | W.RAPID.EEG ---
Rapid EEG
-
Procedure Date: 12/28/24
Results:
Point of Care EEG Procedure Note
Patient name: INGRID CHENEY
Medical ID: [id number]
Date of : 1940
Age: 84
Recording 1 Duration: 2024-12-27 17:04:52 - 2024-12-28 09:38:51
Recording Total Time: 16:33:59 (994 minutes)
Ordering Physician: MAXIMILIANO
Recording Technique: This EEG was obtained using a 10 lead, 8 channel circumferential rapid EEG with no parasagittal coverage.
Performed with Colin Govea Status Epilepticus Monitor, ICD-10 HM89E59
Clinical History: INGRID CHENEY is a 84 year old Prior Seizure, Undifferentiated AMS patient undergoing EEG to screen for non-convulsive status epilepticus.
Primary Indication: Prior Seizure, Undifferentiated AMS
Location: ED
Medications Recorded during the session:
<b>Lorazepam</b> Dec 30, 2024 - :05:11 PM 00:18:43</br><b>Levetiracetam</b> Dec 30, 2024:28:13 PM 00:18:48
Medications Documented during this report:
Levetiracetam
Clinical Correlation / Impressions:
Continuous Seizures Suspected indicating possible non-convulsive seizures
> 20% Of the Last 60 Minutes indicating Electrographic Status Epilepticus
Findings:
Background: The background was continuous of overall medium voltage generally symmetric, variable and reactive
Report prepared by: N/A
--- NOTE | 2024-12-28 16:00 | PTCARENOTE ---
Pt assessed.No change in assessment noted.
--- NOTE | 2024-12-28 17:13 | PTCARENOTE ---
Pt is awake and alert.Speech is clear and appropriate.Ordering dinner independently.
[2024-12-28] MEDS: NON-FORMULARY ITEM 200 MG PO (17:43)
[2024-12-28] MEDS: FLOMAX 0.4 MG PO (17:44)
--- NOTE | 2024-12-28 19:13 | PTCARENOTE ---
on assessment pt more alert and verbalizing concerns, AAOx3, slow speech, SB on the monitor, RA, incontinent, condom cath applied, call urban in reach
[2024-12-28] MEDS: LONITEN PO (21:11)
--- NOTE | 2024-12-28 23:25 | PTCARENOTE ---
no changes from prior assessment, call urban in reach
[2024-12-29] VITALS (32 sets, daily range): BP systolic 101–194; BP diastolic 52–90; PULSE 66–73; O2SAT 96–97; BMI 21.4
[2024-12-29 03:54] LABS: % Basophils 0.5 % (0-2); % Eosinophils 1.5 % (0-6); % Immature Granulocytes 0.3 % (0-0.5); % Lymphocytes 23.4 % (20.5-51.1); % Monocytes 8.8 % (1.7-9.3); % Neutrophils 65.5 % (42.2-75.2); Absolute Eosinophils 0.1 10^3/uL (0-0.7); Absolute Lymphocytes 1.7 10^3/uL (1.2-3.4); Absolute Monocytes 0.6 10^3/uL (0.1-0.6); Absolute Neutrophils 4.8 10^3/uL (1.4-6.5); Hematocrit 25.3 % (39.0-52.0); Hemoglobin 8.7 g/dL (13.0-18.0); Mean Corp Hgb Conc. 34.4 g/dL (33.0-37.0); Mean Corpuscular Hgb 33.7 pg (27.0-31.0); Mean Corpuscular Volume 98.1 fL (80.0-94.0); Mean Platelet Volume 10.8 fL (7.4-10.4); Nucleated Red Blood Cells % 0 % (-); Platelet Count 266 10^3/uL (130-400); Red Blood Cell Count 2.58 10^6/uL (4.70-6.10); Red Cell Dist. Width 12.2 % (11.5-14.5); White Blood Cell Count 7.3 10^3/uL (4.8-10.8)
[2024-12-29 04:04] LABS: INR 3.18; PT 32.4 Sec (11.4-14.6)
[2024-12-29 04:18] LABS: ALT (SGPT) 15 U/L (0-50); AST (SGOT) 25 U/L (17-59); Albumin 3.4 g/dl (3.5-5.0); Alkaline Phosphatase 45 U/L (38-126); Blood Urea Nitrogen 27 mg/dl (9-20); Calcium 8.7 mg/dl (8.4-10.2); Carbon Dioxide 31 mmol/L (22-30); Chloride 104 mmol/L (98-107); Estimated Creatinine Clearance 55 ml/min; Glucose 94 mg/dl (70-99); Potassium 4.2 mmol/L (3.5-5.1); Sodium 139 mmol/L (135-145); Total Bilirubin 0.5 mg/dl (0.2-1.3); Total Protein 6.4 g/dl (6.3-8.2); eGFR > 60.00
--- NOTE | 2024-12-29 04:30 | PTCARENOTE ---
pt states 'feeling better today', no changes from prior assessment, call urban in reach
[2024-12-29] MEDS: METAMUCIL, KONSYL 1 PACKET PO (07:56)
[2024-12-29] MEDS: TEGRETOL XR (EXTENDED RELEASE) 400 MG PO ×2 (07:56→19:54)
[2024-12-29] MEDS: KEPPRA 1750 MG PO ×2 (07:56→19:54)
[2024-12-29] MEDS: PROTONIX 40 MG PO (07:57)
[2024-12-29] MEDS: VITAMIN B-12 1000 MCG PO (07:57)
[2024-12-29] MEDS: NORVASC 2.5 MG PO (07:57)
[2024-12-29] MEDS: LONITEN PO ×3 (07:57→22:00)
[2024-12-29] MEDS: VIMPAT 100 MG PO (07:57)
[2024-12-29] MEDS: LASIX 40 MG PO (07:58)
--- NOTE | 2024-12-29 08:27 | W.PN.INTV ---
Today's Communication / Plan
Recommendations
Antiepileptic drugs as per neurology
Neurochecks q2hr
Aspiration precautions
BUSINESS PLANNING MANAGER evaluation
PT/OT
Maintain SpO2 >90-94%
Given his left upper extremity tremor with concern for impending seizure, he will need to remain in the ICU tonight for close monitoring. Hopefully can downgrade tomorrow versus discharge home depending on clinical status
Assessment
-
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
October 2020, IGT, and facial melanoma s/p resection and history of colon polyps who presented with altered mental status. noticed patient was only able to speak 1�2 word sentences in the morning of 12/27. There was a similar episode reportedly
about 1 week prior on 12/13/2024 the patient was hospitalized here until 12/17 due to sigmoid diverticulitis. He was discharged home on Flagyl + cefdinir. He had finished the antibiotics this past Monday (12/24). When he came to the hospital, the
Ceribell device was placed onto the patient showing high seizure burden consistent with nonconvulsive status epilepticus. Case was discussed with neurology, and he was given lacosamide, Keppra and Ativan and admitted to the ICU for further care.
Benzene Operator services consulted for additional management/recommendations.
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
impaired glucose tolerance, history of colon polyps
Impression:
#Nonconvulsive status epilepticus, diagnosed via Ceribell device -suspected to be from recent antibiotics for diverticulitis (last day of antibiotics was 12/24/2024)
#Seizure disorder on multiple AEDs
#A-fib on Coumadin, currently NSR
#Hypertension
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
#CKD stage III
#History of melanoma involving the face s/p resection
#Ambulatory dysfunction
#History of COREY/CSA previously on BiPAP , no longer using since October 2020 after significant weight loss
#Mild intermittent asthma
#Aortic stenosis
Plan:
- Patient was found to be in nonconvulsive status epilepticus via Ceribell device, and was admitted to the ICU where he is currently being managed
- Defer antiepileptics to neurology � currently on Keppra 1750 BID, Vimpat 100 mg BID, Tegretol 400mg BID and Xcopri 200 mg qPM
- Per neurology, nonconvulsive status epilepticus has now resolved; Ceribell now DC'd on 12/28
- Patient was going to be discharged home today, however he then developed nausea/vomiting and left upper extremity coarse tremor --> neurology adjusted his Vimpat to 200 mg BID, gave a 0.5 mg stat dose of Ativan as well as a one-time 200 mg dose
of Tegretol
- Patient will remain in the ICU tonight to continue with close monitoring
- He remains lethargic, hence would recommend BUSINESS PLANNING MANAGER evaluation - still pending
- PT/OT
- Aspiration precautions; keep HOB >30-45�
- Maintain SpO2 >90-94%
- If resting saturations are <96% on room air, then check ambulatory pulse oximetry prior to discharge
- Maintain MAP>65
- Replete electrolytes with K>4, Mg>2
- Maintain euglycemia with goal BG 140-180
- Trend H/H and transfuse if needed to keep Hb>7g/dL; keep plt>20k, unless there is concern for bleeding then keep plt>50k
- prn nebulized bronchodilators - not currently bronchospastic
- Encourage use of incentive spirometer 10x per hour for at least 4 hrs a day
- DVT ppx: SCDs only for now as INR is >3. Continue trending INR and if downtrending tomorrow towards 3.00 then will resume Coumadin at that time
Code status: Full code
Given his left upper extremity tremor with concern for impending seizure, he will need to remain in the ICU tonight for close monitoring. Continue neurological checks q2hr
Data:
CT Head 12/27/2024:
No acute intracranial abnormality noted.
Mild atrophy. Stable
Mild periventricular small vessel ischemic disease. Stable
Transthoracic echocardiogram 12/02/2024:
Left ventricle is small in size. Mild concentric left ventricular hypertrophy.
Normal regional wall motion. Normal left ventricular systolic function. Left
ventricular ejection fraction is 70% by Willingham's biplane method of discs.
Normal diastolic function.
Trileaflet aortic valve. Calcified aortic valve. Thickened aortic valve with
restricted leaflet motion. Mild to moderate aortic stenosis. Peak/mean
gradients across the valve are 37/20 mmHg. Using an LVOT of 2.0 cm the
calculated valve area is 1.2 cm2. Trace aortic regurgitation.
Since echo July 2023, ejection fraction has improved from 45-50% to 70%. TR
is improved from severe to trace. PA systolic pressure is decreased from 60-65
mmHg to 24 mmHg. Right ventricular systolic function is now normal.
Critical care statement: A total of 38 minutes of critical care time was provided for this patient today. This includes management of unstable vital signs, evaluation of the patient at bedside, reviewing the patient's pertinent medical records
including radiographs, microbiology, laboratory evaluations, and discussion with primary team, consultants, pharmacy, nutrition, physical therapy, case management, charge nurse, critical care nursing, and respiratory therapy.
Subjective Dataa
Subjective Data
Date of Service:
Date of Service: December 29, 2024
Chief Complaint: Benzene Operator Follow Up
Subjective:
Patient seen today at bedside. He is much more awake and alert today. Patient's , Santa, at bedside. All questions were answered. Patient on room air breathing comfortably, heart rate 63. Patient denies GARZON, nausea, vomiting, fevers or
chills.
Review of Systems
General: Other (Negative unless mentioned above)
Objective Data
Data Reviewed
Vital Signs / I&O / Oxygen:
Vital Signs
Temp Pulse Resp BP Pulse Ox
98.5 F 72 21 150/65 98
12/29/24 07:00 12/29/24 09:00 12/29/24 09:00 12/29/24 08:27 12/29/24 08:27
Intake and Output
12/28/24 12/29/24 12/30/24
06:59 06:59 06:59
Intake Total 60 / 60 720 / 720 360 / 360
Output Total 220 / 220 300 / 300
Balance -160 / -160 420 / 420 360 / 360
SaO2 98
Nasal Cannula flow liters per 2
minute
Physical Exam
General: Respiratory Distress (negative), Comfortable, Chills (negative) and Sweats (negative)
HEENT: Normocephalic and Anicteric
Cardiovascular: S1-S2, Murmur (SENTHIL heard best at RUSB) and Peripheral Edema (negative)
Respiratory: Wheeze (negative), Non-Labored Respirations and Other (Bronchial breath sounds heard on the posterior left hemithorax)
GI: Soft, Non Distended, Non Tender and Normal Bowel Sounds
Neurology: AO x 3 and Tremors (negative)
Skin: Warm, Dry, Cyanosis (negative) and Jaundice (negative)
Labs/Micro/Reports
Lab Data
12/29/24 03:34
Laboratory Results
12/29/24
03:34
PT 32.4 H
INR 3.18
--- NOTE | 2024-12-29 09:13 | PTCARENOTE ---
Received pt awake and alert.Speech is appropriate.Oriented x3. Assisted OOB to chair with 2 person min-mod assist.Worked with PT/OT.Pt now c/o drowsiness and is resting in chair.awakens spontaneously and is conversing with his and MD.No seizure
activity noted.SB-SR noted.POX 96% on RA.Lungs clear.Appetite excellent.No BM.Voiding via condom cath.Skin intact.Plan of care discussed with pt and his .
--- NOTE | 2024-12-29 09:29 | W.PN.NEURO.1 ---
Today's Communication / Plan
-
outpatient Midazolam nasal spray in case of new symptoms
eventual outpatient advancement of Cenobamate from 200 mg to 300 mg, outpatient RX sent 25 mg increment increases weekly until 300 mg
continue Levetiracetam
will discontinue Lacosamide prior to discharge
Neuro Assessment/Plan
Assessment
IMPRESSIONS
Abrupt change in mental status followed by testing by Ceribell device demonstrating status epilepticus, remediated by medication in the ED with gradual worsening again by device measurement
Prior medications have included: Lacosamide, Levetiracetam, Carbamazepine, Cenobamate
Plan
RECOMMENDATIONS:
outpatient Midazolam nasal spray in case of new symptoms
eventual outpatient advancement of Cenobamate from 200 mg to 300 mg, outpatient RX sent 25 mg increment increases weekly until 300 mg
continue Levetiracetam
will discontinue Lacosamide prior to discharge
no clear evidence of need for neuroimaging or additional EEG monitoring due to presumed poor control
Will continue to follow as outpatient.
Subjective/Objective
Subjective Data
Date of Service: December 29, 2024
Awoke at 2300 with improvement, now normal this AM
Objective Data
Vital Signs
Temp Pulse Resp BP Pulse Ox
36.9 C 59 15 118/63 95
12/29/24 07:00 12/29/24 06:00 12/29/24 06:00 12/29/24 07:57 12/29/24 06:00
Lab Results
12/29/24 03:34
12/29/24 03:34
PT 32.4 Sec (11.4-14.6) H 12/29/24 03:34
INR 3.18 12/29/24 03:34
Sodium 139 mmol/L (135-145) 12/29/24 03:34
Potassium 4.2 mmol/L (3.5-5.1) 12/29/24 03:34
BUN 27 mg/dl (9-20) H 12/29/24 03:34
Glucose 94 mg/dl (70-99) 12/29/24 03:34
Calcium 8.7 mg/dl (8.4-10.2) 12/29/24 03:34
Phosphorus 4.0 mg/dl (2.5-4.5) 12/29/24 03:34
Patient Allergies
hydralazine Allergy (Verified 12/27/24 14:52)
Unknown
pollen extracts Allergy (Verified 12/27/24 14:52)
nasal symptoms
Past History
Past History
ED Past Medical History: Asthma, Cancer (Lung, melanoma), CHF, CVA, HTN, Hypercholesterolemia, Seizures and Other (COREY C-pap at night, Childhood Meningitis)
ED Past Surgical History: Tonsilectomy and Other (right lobectomy, Uvulectomy)
Social History
Tobacco: Non-smoker
Alcohol: None
Drug: None
Personal:
Living: with family
Employment: Retired
Family History
Family History: Other (reviewed and Noncontributory)
Medications
-
Medications:
Generic Name Dose Route Start Last Admin
Trade Name Freq PRN Reason Stop Dose Admin
Acetaminophen 650 mg 12/27/24 19:53
Acetaminophen 325 Mg Tablet PO 01/24/25 19:52
Q4HPRN PRN
mild pain/ fever>100.5F
Amlodipine Besylate 2.5 mg 12/28/24 08:00 12/29/24 07:57
Amlodipine 2.5 Mg Tablet PO 01/25/25 07:59 2.5 mg
DAILY VIRAJ Administration
Carbamazepine 400 mg 12/27/24 20:00 12/29/24 07:56
Carbamazepine 400 Mg Extended Release (12 Hour) Tablet PO 01/24/25 19:59 400 mg
BID VIRAJ Administration
Clonidine HCl 0.2 mg 01/01/25 08:00
Clonidine 0.2 Mg Patch TRANSDERM 01/29/25 07:59
WE VIRAJ
Cyanocobalamin 1,000 mcg 12/28/24 08:00 12/29/24 07:57
Cyanocobalamin 1,000 Mcg Tablet PO 01/25/25 07:59 1,000 mcg
DAILY VIRAJ Administration
Furosemide 40 mg 12/28/24 08:00 12/29/24 07:58
Furosemide 40 Mg Tablet PO 01/25/25 07:59 40 mg
DAILY VIRAJ Administration
Levetiracetam 1,750 mg 12/28/24 08:00 12/29/24 07:56
Levetiracetam 500 Mg Regular Release Tablet PO 01/25/25 07:59 1,750 mg
BID VIRAJ Administration
Lorazepam 1 mg 12/27/24 21:50
Lorazepam 2 Mg/Ml Vial IV 01/24/25 19:52
Q4HPRN PRN
breakthrough seizure
Minoxidil 10 mg 12/27/24 20:00 12/29/24 07:57
Minoxidil 10 Mg Tablet PO 01/24/25 19:59 Not Given
BID VIRAJ
Cenobamate [Xcopri] 0 mg 12/27/24 19:53 12/28/24 17:43
50mg Tablet - 4 PO 01/24/25 19:52 200 mg
Tablets (200mg) Po QPM VIRAJ Administration
Qpm
Ondansetron HCl 4 mg 12/27/24 21:27
Ondansetron 4 Mg/2 Ml Vial IV 01/24/25 21:26
Q6HPRN PRN
NAUSEA/VOMITING
Pantoprazole Sodium 40 mg 12/28/24 08:00 12/29/24 07:57
Pantoprazole 40 Mg Delayed Release Tablet PO 01/25/25 07:59 40 mg
DAILY VIRAJ Administration
Psyllium Hydrophilic Mucilloid 1 packet 12/28/24 08:00 12/29/24 07:56
Psyllium Packet PO 01/25/25 07:59 1 packet
DAILY VIRAJ Administration
Sodium Chloride 0 flush 12/27/24 20:00
Sodium Chloride 0.9% (Flush) Syringe IV 01/24/25 19:59
PER PROTOCOL VIRAJ
Sodium Chloride 0.5 ml 12/27/24 21:50
Nss (Pf) 10 Ml Vial For Ativan 1 Mg Dose IV 01/24/25 21:49
Q4HPRN PRN
IV LORAZEPAM DILUTION
Tamsulosin HCl 0.4 mg 12/27/24 20:00 12/28/24 17:44
Tamsulosin 0.4 Mg Capsule PO 01/24/25 19:59 0.4 mg
QPM VIRAJ Administration
--- NOTE | 2024-12-29 10:14 | W.PN.HOSP.TC ---
Today's Communication/Plan
-
most likely d/c home vs SNF - will discuss with family
Needs also plan for INR recheck
Home PT
recheck H&H, if stable - d/c home
Assessment / Plan
Assessment / Plan
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 POC EEG showed high burden
seizure activity, admitted for status epilepticus, improved, neurologist provided recommendations; as per his conversation with bedside - patient back to baseline, midazolam spray recommended to prevent worsening seizures as per Neurologist. No
additional neurologic mgmt. Discussed in details with STR vs home PT - she would like to take patient home.
A/P:
#Acute metabolic encephalopathy 2/2 status epilepticus with postictal state
Neurologist consult: outpatient advancement of Cenobamate from 200 mg to 300 mg, outpatient RX sent 25 mg increment increases weekly until 300 mg, Cont keppra, stop Lacosamide upon d/c, no need in additional imaging
Seizure precautions
#Cough
with PMHX of aspiration pneumonia and leukocytosis
Chest XR without new signs of pneumonia
leukocytosis improving - most likely seizure related
FOllow off Abx clinically
UA neg
#Afib, unspecified
#Supratherapeutic INR
follow INR
restart Coumadin with lower dose when INR therapeutic (2.0-3.0) - will defer to outpatient
#chronic anemia
Hgb around 9.0-10 as per chart review
watch Hgb - check FOBT, anemia w/u
Brown stools as per notes
#Chronic HFmrEF
#Essential HTN
#CKD stage 3
#Anemia of chronic disease
#GERD
cont home meds
#Hx Right Upper Lobe Adenocarcinoma s/p Lobectomy
Outpatient w/u for paraneoplastic syndrome
DVT ppx Coumadin
full code
I have spent at least 37min reviewing chart, test results, communication with consultants, family and providing direct patient care
Anticipated Discharge: Within 24 hours
Subjective/Interval History
-
Date of Service: December 29, 2024
Objective Data
-
Labs:
Laboratory Results
12/29/24
03:34
WBC 7.3
Hgb 8.7 L
Hct 25.3 L
Plt Count 266
PT 32.4 H
INR 3.18
Sodium 139
Potassium 4.2
Chloride 104
Carbon Dioxide 31 H
BUN 27 H
Creatinine 1.0
Glucose 94
Calcium 8.7
Total Bilirubin 0.5
AST 25
ALT 15
Alkaline Phosphatase 45
Vital Signs:
Vital Signs
Temp Pulse Resp BP Pulse Ox
98.5 F 72 21 150/65 98
12/29/24 07:00 12/29/24 09:00 12/29/24 09:00 12/29/24 08:27 12/29/24 08:27
I&O
12/28/24 12/29/24 12/30/24
06:59 06:59 06:59
Intake Total 60 / 60 720 / 720 360 / 360
Output Total 220 / 220 300 / 300
Balance -160 / -160 420 / 420 360 / 360
Review of Systems
-
History Source: Patient
All other systems: Reviewed and negative
Physical Exam
-
General: No Apparent Distress
HEENT: Normocephalic
Respiratory: Clear to Auscultation
GI: Soft, Nontender and Nondistended
Rectal: Brown
Genito-urinary: No Costovertebral Tender
Musculoskeletal: No Clubbing, No Cyanosis and No Edema
Neuro: Awake, Alert, Oriented, AO x 3 and Slurred Speech
Psych: Calm
--- NOTE | 2024-12-29 12:09 | PTCARENOTE ---
Pt assessed.No change in assessment noted.
--- NOTE | 2024-12-29 12:52 | W.DCSUMMARY ---
Discharge Summary
Discharge Data
Date of Admission: 12/27/24
Date of Discharge: 12/29/24
-
Pending Results: No
Hospital Course
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 POC EEG showed high burden
seizure activity, admitted for status epilepticus, improved, neurologist provided recommendations; as per his conversation with bedside - patient back to baseline, midazolam spray recommended to prevent worsening seizures as per Neurologist. No
additional neurologic mgmt. Discussed in details with STR vs home PT - she would like to take patient home. As per neurologist: outpatient advancement of Cenobamate from 200 mg to 300 mg, outpatient RX sent 25 mg increment increases weekly
until 300 mg, Cont keppra, stop Lacosamide upon d/c, no need in additional imaging and Rx for Midazolam intranasal was already submitted by . INR Rx provided to patient - recheck in 1 day and follow with coumadin clinic. Hold Coumadin unitl
told to restart by coumadin clinic - might need 4.5mg as recently decreased from 5.5 to 5.0mg. Patient and family declined STR and would like to go home. Medcially stabel for d/c as Hgb stable according to baseline trend of the patient on repeated
H&H
I have spent at least 37min reviewing chart, test results, communication with consultants, family and providing direct patient care
patient was managed for:
#Acute metabolic encephalopathy 2/2 status epilepticus with postictal state
#Cough
#Afib, unspecified
#Supratherapeutic INR
#chronic anemia
#Chronic HFmrEF
#Essential HTN
#CKD stage 3
#Anemia of chronic disease
#GERD
#Hx Right Upper Lobe Adenocarcinoma s/p Lobectomy
Discharge Plan
-
Patient Disposition: Home with Home Care
Discharge Diagnosis/Procedures: Seizures
Diet: Regular
Referrals:
Edward Edouard MD [Active, Neurology] - in one to two days
Robin Garcia MD [Family Provider, Internal Medicine]
Prescriptions:
Continued
minoxidil 10 mg Tablet
10 mg PO BID
furosemide 40 mg Tablet
40 mg PO DAILY
cyanocobalamin (vitamin B-12) 1,000 mcg tablet
1,000 mcg PO DAILY
pantoprazole 40 mg tablet,delayed release (DR/EC)
40 mg PO DAILY
Xcopri 200 mg Tablet
200 mg PO QPM
clonidine 0.2 mg/24 hr patch weekly
0.2 mg transdermal WE 30 Days Qty: 4 0RF
amlodipine 2.5 mg Tablet
2.5 mg PO DAILY
carbamazepine 200 mg tablet extended release 12 hr
400 mg PO BID
levetiracetam 500 mg tablet
1,750 mg PO BID
lorazepam 1 mg tablet
1 mg PO Q6HPRN PRN (Reason: anxiety)
silodosin 8 mg Capsule
8 mg PO QPM
psyllium Packet
1 packet PO DAILY
Held
warfarin 1 mg Tablet
5 mg PO QPM
Hold Instructions: until told to restart by coumadin clinic
Discontinued
Vitamin C 100 mg Tablet
100 mg PO QPM
Discharge Orders:
Discharge Patient (As Directed); Ordered 12/29/24
Ordered By: Jose R Knowles
Discharge Date and Time
Print Language: EQUATORIAL GUINEAN
[2024-12-29 13:19] LABS: Hematocrit 29.3 % (39.0-52.0); Hemoglobin 10.2 g/dL (13.0-18.0)
[2024-12-29] MEDS: LONITEN 10 MG PO (13:50)
--- NOTE | 2024-12-29 14:03 | PTCARENOTE ---
Addendum entered by Rosanna Sims RN 12/29/24 15:21:
Discharge cancelled.Patient's own medication Cenobamate 200 mg in bottle,22 tablets remaining returned to locked box in ICU medication room.
Original Note:
Patient's own medication Cenobamate 200 mg in bottle,22 tablets remaining returned to the pat and his spouse.
--- NOTE | 2024-12-29 14:18 | PTCARENOTE ---
Pt states that he has increased generalized weakness and is concerned about being able to ambulate from wheelchair to car upon discharge.Trial ambulation completed.Pt is a moderate assist to stand with an unsteady gait while standing.Pt's also
voices concern.
[2024-12-29] MEDS: ZOFRAN 4 MG IV ×2 (14:25→22:01)
[2024-12-29 14:35] LABS: Glucose - Point of Care 133 mg/dl (70-99)
--- NOTE | 2024-12-29 14:36 | PTCARENOTE ---
Left arm tremors noted.Dr Preciado made aware and is at bedside.Blood sugar 133.Dr Edouard made aware of above.
--- NOTE | 2024-12-29 14:36 | CM ---
Addendum entered by Jennifer Montano 12/29/24 14:43:
Discharge now cancelled
Original Note:
CM reviewed chart and noted dc order
Bedside meeting with pt and spouse
SNF vs VN recommended
Pt and spouse declining SNF noting poor past experience
Referral made to VN per their request via [facility]
VN order requested and on chart
Spouse later requested BLS be arranged as pt feeling weak and not able to complete car transfers
Nursing completed bedside transfer trial- required heavy assist for transfers
Medical necessity completed and transport form on chart
Spouse confirmed 1STE home and then stairglide to 2nd floor
She noted historically, crew will transfer him into stairglide and assist him into bed
Encouraged reconsideration of SNF and continues to decline
Discharge Disposition- home with VN via ambulance
--- NOTE | 2024-12-29 14:47 | W.PN.UPDATE ---
Update Note
Progress Note Update
PAtient with worsening somnolence, weakness and intermittent L hand tremor. Concern for seizure reocurrence. BZD, Carbamazepine as per neurology, Vimpat to be restarted, might need to be eventually d/c on it. Will monitor inpatient for tonight
[2024-12-29] MEDS: TEGRETOL 200 MG PO (14:52)
[2024-12-29] MEDS: ATIVAN 0.5 MG PO (14:52)
--- NOTE | 2024-12-29 14:57 | PTCARENOTE ---
Pt assisted back to bed.Vomited approximately 20 ml emesis.No tremor left arm noted.Pt received Tegretol and Ativan doses as ordered.Discharge cancelled as per Dr Preciado.
--- NOTE | 2024-12-29 16:00 | PTCARENOTE ---
Pt sleeping.Awakens to voice.Speech is slow.+WRIGHT noted.Pt falls back to sleep.
[2024-12-29] MEDS: NON-FORMULARY ITEM 200 MG PO (18:12)
[2024-12-29] MEDS: FLOMAX 0.4 MG PO (18:12)
[2024-12-29] MEDS: VIMPAT 200 MG PO (19:54)
--- NOTE | 2024-12-29 20:00 | PTCARENOTE ---
Rec'd pt asleep. easily arousable, oriented, cooperative, KAYLEE at 2mm, follows commands, WRIGHT, no seizures noted, SR, bp stable, weak distal pulses, skin warm/dry, RA, lungs decr in bases, sat 99, + bowel sounds, no bm, abd sofft, no n/v, carmita fluids,
has no appetite, condom cath in place- drainng yellow urine
[2024-12-29] MEDS: ATIVAN 1 MG IV (22:00)
--- NOTE | 2024-12-29 22:00 | PTCARENOTE ---
pt lethargic but arousable, justin at 3mm, WRIGHT, speech slow, given minoxidil, immediately vomited sm amt food particles, arms tremulous, not talking, Luke Lorenzana, cloth carrier in to see pt, ativan 1mg iv given, zofran 4 mg iv given, vimpat 100mg iv given at 2215
per order
2230, bp improving, sat 91- 2 liters nc applied
[2024-12-29] MEDS: VIMPAT 100 MG IV (22:13)
--- NOTE | 2024-12-29 22:20 | W.PN.UPDATE ---
Update Note
Progress Note Update
12/29/24
2199- Patient had an episode of vomiting, there were pills noted in vomit (unable to identify which antiepileptic medication). He was overall less responsive, slow to speak, leaning to the left tense overall but no rhythmic shaking noted, gaze
appears starring. This episode was very similar to previous episodes of seizure activity. Dr. Edouard, neurologist updated, recommended to vimpat 100mg IV, ativan 1mg IV, zofran IV and further evaluation with consideration to transfer to epilepsy
tertiary facility. Dr. Canales, fuel storage technician also updated patient had another seizure event.
[2024-12-30] VITALS (26 sets, daily range): BP systolic 110–182; BP diastolic 54–94; BMI 21.2
--- NOTE | 2024-12-30 00:20 | PTCARENOTE ---
sys reviewed, lethargic but arousable, answers questions appropriately but slowly, follows commands, KAYLEE, denies nausea, CHG bath done, linens changed, lungs decr throughout
--- NOTE | 2024-12-30 02:00 | PTCARENOTE ---
lethargic, aroused after stimulation, not talking but following all commands, Luke WRIGHT PUTTY TINTER MAKER in to assess, will cont to monitor
[2024-12-30 03:54] LABS: Hematocrit 27.3 % (39.0-52.0); Hemoglobin 9.4 g/dL (13.0-18.0); Mean Corp Hgb Conc. 34.4 g/dL (33.0-37.0); Mean Corpuscular Hgb 33.2 pg (27.0-31.0); Mean Corpuscular Volume 96.5 fL (80.0-94.0); Mean Platelet Volume 10.2 fL (7.4-10.4); Platelet Count 271 10^3/uL (130-400); Red Blood Cell Count 2.83 10^6/uL (4.70-6.10); Red Cell Dist. Width 11.9 % (11.5-14.5)
[2024-12-30 04:08] LABS: INR 1.93; PT 22.2 Sec (11.4-14.6)
--- NOTE | 2024-12-30 04:12 | PTCARENOTE ---
sys reviewed, lethargic but arouses easily, speech slow, oriented conversation, forgetful
[2024-12-30 04:23] LABS: Blood Urea Nitrogen 23 mg/dl (9-20); Carbon Dioxide 32 mmol/L (22-30); Chloride 102 mmol/L (98-107); Estimated Creatinine Clearance 60 ml/min; Glucose 107 mg/dl (70-99); Potassium 4.1 mmol/L (3.5-5.1); Sodium 139 mmol/L (135-145); eGFR > 60.00
[2024-12-30] MEDS: KEPPRA 1750 MG PO (07:45)
--- NOTE | 2024-12-30 07:45 | PTCARENOTE ---
Patient received lying still in bed with eyes closed, respirations nonlabored. Opens eyes to verbal and tactile stimuli. Lethargic. Slow to speak with some EA noted. Oriented. WRIGHT. See dye weigher helper charted on worklist flowsheet. BBS clear. S1S2
regular with positive murmur. SR on CM. Denies pain when asked. SCDs in place. Denies CP, SOB, N/V, dizziness or GARZON. Takes po medications one at a time, no dysphagia noted. Ordered breakfast but seems too lethargic to eat and states he feels weak.
Bed in low and locked position, bed alarm on, bed rails padded for seizure precautions, call urban within reach.
[2024-12-30] MEDS: PROTONIX 40 MG PO (07:47)
[2024-12-30] MEDS: LASIX 40 MG PO (07:47)
[2024-12-30] MEDS: VIMPAT 200 MG PO ×2 (07:47→19:29)
[2024-12-30] MEDS: TEGRETOL XR (EXTENDED RELEASE) 400 MG PO ×2 (07:47→19:20)
[2024-12-30] MEDS: NORVASC 2.5 MG PO (07:48)
[2024-12-30] MEDS: LONITEN 10 MG PO ×2 (07:48→19:19)
[2024-12-30] MEDS: METAMUCIL, KONSYL PO ×2 (07:49→17:13)
[2024-12-30] MEDS: VITAMIN B-12 1000 MCG PO (07:52)
[2024-12-30] MEDS: D5/0.45%NACL 1000 IV ×2 (09:45→22:51)
[2024-12-30] MEDS: ZOFRAN 4 MG IV (10:21)
--- NOTE | 2024-12-30 12:00 | PTCARENOTE ---
Patient is refusing lunch. He is more awake, neurologically intact, speech is more clear. Some mild hand tremors bilaterally noted with slower hand grasp of right hand vs left hand with neuro check. Briefly removed from oxygen to assess sats on RA.
Desats to 85% with sleep, oxygen at 2L/nc replaced. Otherwise, no change in patient's physical assessment.
--- NOTE | 2024-12-30 12:56 | W.PN.INTV ---
Today's Communication / Plan
Recommendations
- Add IV Vasotec as needed systolic blood pressure more than 170
- Resume Coumadin at 4 mg nightly dose, INR in a.m.
Assessment
-
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
October 2020, IGT, and facial melanoma s/p resection and history of colon polyps who presented with altered mental status. noticed patient was only able to speak 1�2 word sentences in the morning of 12/27. There was a similar episode reportedly
about 1 week prior on 12/13/2024 the patient was hospitalized here until 12/17 due to sigmoid diverticulitis. He was discharged home on Flagyl + cefdinir. He had finished the antibiotics this past Monday (12/24). When he came to the hospital, the
Ceribell device was placed onto the patient showing high seizure burden consistent with nonconvulsive status epilepticus. Case was discussed with neurology, and he was given lacosamide, Keppra and Ativan and admitted to the ICU for further care.
Hot Dip Galvanizer services consulted for additional management/recommendations.
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
impaired glucose tolerance, history of colon polyps
12/30: Patient hemodynamically stable. Not on any infusions. Saturating 99% on 2 L. MAP above 70.
Assessment and plan:
#1. Status epilepticus, breakthrough tonic-clonic seizure 12/29 at night, postictal state
- Patient postictal during my evaluation, however on subsequent evaluation around 1 PM, patient more awake alert and responsive
- Neurology service on case, currently on Tegretol Xcopri, Keppra, Vimpat
- As needed Ativan for breakthrough seizure
- Currently protecting his airway
- Known history of epilepsy, on multiple antiepileptic medications
#2. History of atrial fibrillation
- Normal sinus rhythm currently
#3. Chronic warfarin therapy, supratherapeutic INR on admission
- Coagulopathy resolved, INR subtherapeutic now
- Resume Coumadin, will start with 4 mg nightly
- PT/INR in a.m.
#4. HTN
- Continue current medications
- Add Vasotec as needed SBP greater than 170
Other medical diagnoses:
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
#?CKD stage III. Cr 0.9 today
#History of melanoma involving the face s/p resection
#Ambulatory dysfunction
#History of COREY/CSA previously on BiPAP , no longer using since October 2020 after significant weight loss
#Mild intermittent asthma
#Aortic stenosis
DVT prophylaxis: Resume Coumadin.
Critical Care time 48 mins -- The patient is admitted for acute critical illness for the treatment of vital organ failure and/or prevention of further life-threatening conditions. Total care includes time spent in review of history, physical exam,
medications, hemodynamic/ventilator parameters, laboratory data, imaging and discussion with house staff, pharmacy, respiratory therapy, city alderman, and nursing.
Data:
CT Head 12/27/2024:
No acute intracranial abnormality noted.
Mild atrophy. Stable
Mild periventricular small vessel ischemic disease. Stable
Transthoracic echocardiogram 12/02/2024:
Left ventricle is small in size. Mild concentric left ventricular hypertrophy.
Normal regional wall motion. Normal left ventricular systolic function. Left
ventricular ejection fraction is 70% by Willingham's biplane method of discs.
Normal diastolic function.
Trileaflet aortic valve. Calcified aortic valve. Thickened aortic valve with
restricted leaflet motion. Mild to moderate aortic stenosis. Peak/mean
gradients across the valve are 37/20 mmHg. Using an LVOT of 2.0 cm the
calculated valve area is 1.2 cm2. Trace aortic regurgitation.
Since echo July 2023, ejection fraction has improved from 45-50% to 70%. TR
is improved from severe to trace. PA systolic pressure is decreased from 60-65
mmHg to 24 mmHg. Right ventricular systolic function is now normal.
.
Subjective Dataa
Subjective Data
Date of Service:
Date of Service: December 30, 2024
Chief Complaint: Hot Dip Galvanizer Follow Up
Subjective:
Patient currently mildly encephalopathy, likely postictal state.
Review of Systems
General: Other (Patient somewhat sedated, however with time he was more awake and alert through the day)
Objective Data
Data Reviewed
Vital Signs / I&O / Oxygen:
Vital Signs
Temp Pulse Resp BP Pulse Ox
98.1 F 59 13 138/65 99
12/30/24 11:45 12/30/24 12:00 12/30/24 12:00 12/30/24 12:00 12/30/24 12:00
Intake and Output
12/29/24 12/30/24 12/31/24
06:59 06:59 06:59
Intake Total 720 / 720 560 / 560 405 / 405
Output Total 300 / 300 1070 / 1070
Balance 420 / 420 -510 / -510 405 / 405
SaO2 99
Nasal Cannula flow liters per 2
minute
Physical Exam
General: Comfortable
HEENT: Normocephalic and Anicteric
Cardiovascular: S1-S2, Murmur (Soft systolic murmur) and Peripheral Edema (negative)
Respiratory: Wheeze (negative) and Non-Labored Respirations
GI: Soft, Non Distended, Non Tender and Normal Bowel Sounds
Neurology: Other (Patient post ictal )
Skin: Warm and Dry
Labs/Micro/Reports
Lab Data
12/30/24 03:36
12/30/24 03:36
Laboratory Results
12/30/24
03:36
PT 22.2 H
INR 1.93
--- NOTE | 2024-12-30 13:57 | W.PN.NEURO.1 ---
Today's Communication / Plan
-
restart Ceribell monitoring. presentation this afternoon consistent with his previous seizures, but many other things can also present this way
continue same AEDs for now; on 4 AED's adding a 5th drug is unlikely to be effective
noted prior poor response to lacosamide/eventual plans to stop
Neuro Assessment/Plan
Assessment
IMPRESSIONS
Abrupt change in mental status followed by testing by Ceribell device demonstrating status epilepticus, remediated by medication in the ED with gradual worsening again by device measurement
Prior medications have included: Lacosamide, Levetiracetam, Carbamazepine, Cenobamate
Plan
RECOMMENDATIONS:
outpatient Midazolam nasal spray in case of new symptoms
eventual outpatient advancement of Cenobamate from 200 mg to 300 mg, outpatient RX sent 25 mg increment increases weekly until 300 mg
continue Levetiracetam 1750 BID, carbamazepine 400 BID, Vimpat 200 BID
will discontinue Lacosamide prior to discharge
no clear evidence of need for neuroimaging or additional EEG monitoring due to presumed poor control
Will continue to follow as outpatient.
Subjective/Objective
Subjective Data
Date of Service: December 30, 2024
History reviewed: admitted 12/27 Abrupt change in mental status followed by testing by Ceribell device demonstrating status epilepticus, remediated by medication in the ED with gradual worsening again by device measurement
Prior medications have included: Lacosamide, Levetiracetam, Carbamazepine, Cenobamate
Overnight nurse witnessed seizure, convulsions bilateral upper extremities, vomited, post ictal confusion, given ativan 1 mg
in AM patient tells me no recollection of event, almost at cognitive baseline
3:27 pm informed by RN patient absent looking, aphasic, diminished motor control - evaluated again and spoke to
confirms that his typical seizures include encephalopathy, confusion, aphasia, apraxia; last seizure was 04/2024, he was in partial status epilepticus. long time since last convulsive seizure.
Objective Data
Vital Signs
Temp Pulse Resp BP Pulse Ox
36.7 C 62 9 126/64 99
12/30/24 11:45 12/30/24 13:00 12/30/24 13:00 12/30/24 13:00 12/30/24 13:00
Lab Results
12/30/24 03:36
12/30/24 03:36
PT 22.2 Sec (11.4-14.6) H 12/30/24 03:36
INR 1.93 12/30/24 03:36
Sodium 139 mmol/L (135-145) 12/30/24 03:36
Potassium 4.1 mmol/L (3.5-5.1) 12/30/24 03:36
BUN 23 mg/dl (9-20) H 12/30/24 03:36
Glucose 107 mg/dl (70-99) H 12/30/24 03:36
Calcium 9.0 mg/dl (8.4-10.2) 12/30/24 03:36
Phosphorus 4.0 mg/dl (2.5-4.5) 12/29/24 03:34
Patient Allergies
hydralazine Allergy (Verified 12/27/24 14:52)
Unknown
pollen extracts Allergy (Verified 12/27/24 14:52)
nasal symptoms
Physical Exam
-
initial exam this AM AAOx3, speech clear, mildly slow to process, grossly full strength.
--- NOTE | 2024-12-30 15:25 | PTCARENOTE ---
Patient last evaluated approx 20 min ago. Last time evaluated He was stable and was able to speak normally. Now he has a bit of an absent look and is having difficulty speaking as well as diminished motor control of BUEs with slight tremors. He is
unable to smile or follow some commands. Stephanie France and Bc notified. Evaluated at the bedside. Upon further evaluation, where Patient was once nonverbal his speech is now slurred, he is able to WRIGHT but LLE is slightly weaker with some drift when
compared to the right. Bilateral hand grasps strong, no tongue deviation and no facial droop noted. Dr France instructed Cerebella to be placed; placed and more gel injected. All electrodes green and recording started at 1605. Patient then with
straightening of limbs, eyes closed and twitchin, jaw twitching and turning to the right noted--appears as if actively seizing. At approx 1615, patient appears post ictal, very somnolent and sleeping, difficult to rouse. Oxygen replaced at 2L/nc due
to sats 90-91% on RA during observed seizure activity. Rest of physical assessment unchanged. at bedside at time of events.
--- NOTE | 2024-12-30 15:30 | W.PN.HOSP.TC ---
Today's Communication/Plan
-
Assessment / Plan
Assessment / Plan
General: No Apparent Distress, Comfortable
HEENT: NormoCephalic, Moist mucous membranes, Atraumatic
Respiratory: Clear and Non Labored Respirations
Cardiac: S1/S2 and Regular Rhythm; No Rub or Gallop
GI: Soft, Non Tender, Non Distended and Normal Bowel Sounds
Musculoskeletal: No Edema, no deformity
: Condom catheter in place draining clear yellow urine
Neuro: Somnolent, Nonfocal/grossly intact
Psych: Unable to assess
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 POC EEG showed high burden
seizure activity, admitted for status epilepticus, improved, neurologist provided recommendations; as per his conversation with bedside - patient back to baseline, midazolam spray recommended to prevent worsening seizures as per Neurologist. No
additional neurologic mgmt. Discussed in details with STR vs home PT - she would like to take patient home.
A/P:
#Acute metabolic encephalopathy:
- 2/2 status epilepticus with postictal state
- Initially plan for discharge yesterday 12/29 however became progressively somnolent with some concern for recurrent seizure activity, restarted on Vimpat and Keppra inpatient
- Continuing antiepileptic regimen with carbamazepine 400 mg p.o. twice daily, cenobamate 200 mg p.o. at night, lacosamide 200 mg p.o. twice daily, and levetiracetam 1750 mg p.o. twice daily
- Neurology following, recommendations appreciated
- Seizure precautions
#Cough
-with PMHX of aspiration pneumonia and leukocytosis
-Chest XR without new signs of pneumonia
-leukocytosis resolved- most likely seizure related
-Follow off Abx
#Afib, unspecified
#Supratherapeutic INR
- Initially INR was 3.3, however now 1.9
- Restarted warfarin with INR goal 2-3
#chronic anemia
Hgb around 9.0-10 as per chart review
Stable hemoglobin, monitor
Brown stools as per notes
#Chronic HFmrEF
#Essential HTN
#CKD stage II/III
#Anemia of chronic disease
#GERD
cont home meds
#Hx Right Upper Lobe Adenocarcinoma s/p Lobectomy
Outpatient w/u for paraneoplastic syndrome
DVT ppx warfarin
full code
I have spent at least 40 minutes reviewing chart, test results, communication with consultants, family and providing direct patient care
Anticipated Discharge: 24 - 48 hours
Subjective/Interval History
-
Date of Service: December 30, 2024
Patient was seen and examined at bedside this morning. Somnolent. at bedside. No current seizure activity.
Objective Data
-
Labs:
Laboratory Results
12/30/24
03:36
WBC 7.0
Hgb 9.4 L
Hct 27.3 L
Plt Count 271
PT 22.2 H
INR 1.93
Sodium 139
Potassium 4.1
Chloride 102
Carbon Dioxide 32 H
BUN 23 H
Creatinine 0.9
Glucose 107 H
Calcium 9.0
Vital Signs:
Vital Signs
Temp Pulse Resp BP Pulse Ox
98.1 F 60 18 130/60 99
12/30/24 11:45 12/30/24 14:00 12/30/24 14:00 12/30/24 14:00 12/30/24 13:00
I&O
12/29/24 12/30/24 12/31/24
06:59 06:59 06:59
Intake Total 720 / 720 560 / 560 660 / 660
Output Total 300 / 300 1070 / 1070
Balance 420 / 420 -510 / -510 660 / 660
Review of Systems
-
History Source: Patient
All other systems: Reviewed and negative
Physical Exam
-
General: No Apparent Distress
--- NOTE | 2024-12-30 16:31 | CM ---
Discharge POC: HH vs SNF. Will await further therapy recommendations. Referral for HH previously forwarded.
[2024-12-30] MEDS: FLOMAX PO (19:01)
--- NOTE | 2024-12-30 19:12 | PTCARENOTE ---
Report given verbally to oncoming janice, Sierra ETIENNE. Questions answered. Reviewed Cerebell with Sierra. Evaluated patient together. Concern for ongoing post ictal state due to patient inability to speak well. Follows commands.
[2024-12-30] MEDS: NON-FORMULARY ITEM 200 MG PO (19:15)
[2024-12-30] MEDS: COUMADIN 4 MG PO (19:18)
[2024-12-30] MEDS: KEPPRA 1750 MG IV (19:23)
--- NOTE | 2024-12-30 20:00 | PTCARENOTE ---
Rec'd pt lethargic but arousable, oriented to person/ place, birthday, able to follow commands, speech slow, WRIGHT, cerebel monitor on, no sz activity noted, SR, weak distal pulses, no edema, O2 2 liters nc, sat 100, lungs decr in bases, + bowel
sounds, no bm, abd soft, no appetite, condom cath on voiding yellow urine
2044- cerebell monitor off per B AMY Rangel, no sz
--- NOTE | 2024-12-30 23:45 | PTCARENOTE ---
upon doing neuro check pt noted to be nonverbal, tracking name, KYLE connor B Dougherty, SUPERVISOR TAPING at bedside, [facility] applied- 0 seizure burden, will cont to monitor
[2024-12-31] VITALS (24 sets, daily range): BP systolic 103–178; BP diastolic 46–82; BMI 21.5
[2024-12-31] MEDS: VASOTEC 0.625 MG IV (02:06)
--- NOTE | 2024-12-31 02:07 | PTCARENOTE ---
vasotec 0.625 mg iv given for bp
[2024-12-31 03:11] LABS: Hematocrit 30.1 % (39.0-52.0); Hemoglobin 10.5 g/dL (13.0-18.0); Mean Corp Hgb Conc. 34.9 g/dL (33.0-37.0); Mean Corpuscular Hgb 33.2 pg (27.0-31.0); Mean Corpuscular Volume 95.3 fL (80.0-94.0); Mean Platelet Volume 10.2 fL (7.4-10.4); Platelet Count 275 10^3/uL (130-400); Red Blood Cell Count 3.16 10^6/uL (4.70-6.10); Red Cell Dist. Width 11.8 % (11.5-14.5); White Blood Cell Count 5.9 10^3/uL (4.8-10.8)
[2024-12-31 03:21] LABS: INR 1.61; PT 19.4 Sec (11.4-14.6)
--- NOTE | 2024-12-31 03:36 | W.PN.UPDATE ---
Update Note
Progress Note Update
Patient having episodes of becoming non verbal, but able to follow commands. No seizure activity noted on EEG.
--- NOTE | 2024-12-31 03:53 | PTCARENOTE ---
Addendum entered by Sierra Salomon RN 12/31/24 03:54:
CHG bath done, linens changed
Original Note:
sys reviewed, seizure burden 0, slow garbled speech, lethargic
[2024-12-31 03:54] LABS: Blood Urea Nitrogen 17 mg/dl (9-20); Calcium 8.8 mg/dl (8.4-10.2); Carbon Dioxide 30 mmol/L (22-30); Chloride 99 mmol/L (98-107); Estimated Creatinine Clearance 68 ml/min; Glucose 187 mg/dl (70-99); Magnesium 1.7 mg/dl (1.6-2.3); Potassium 3.9 mmol/L (3.5-5.1); Sodium 136 mmol/L (135-145); eGFR > 60.00
[2024-12-31] MEDS: VITAMIN B-12 1000 MCG PO (08:22)
[2024-12-31] MEDS: METAMUCIL, KONSYL 1 PACKET PO (08:22)
[2024-12-31] MEDS: PROTONIX 40 MG PO (08:22)
[2024-12-31] MEDS: KEPPRA 1750 MG IV ×2 (08:23→20:26)
[2024-12-31] MEDS: VIMPAT 200 MG PO ×2 (08:23→20:28)
[2024-12-31] MEDS: TEGRETOL XR (EXTENDED RELEASE) 400 MG PO ×2 (08:23→20:27)
[2024-12-31] MEDS: LONITEN 10 MG PO (08:23)
[2024-12-31] MEDS: NORVASC 2.5 MG PO (08:23)
--- NOTE | 2024-12-31 08:30 | PTCARENOTE ---
Rec'd pt lethargic but arousable, not oriented to place, birthday, able to follow commands, speech slow, WRIGHT, cerebel monitor on, 13% sz burden noted. SR, weak distal pulses, no edema, O2 2 liters nc, sat 100, lungs decr in bases, + bowel sounds, no
bm, abd soft, no appetite, condom cath on voiding yellow urine. At 0750 RN returned from Rapid response and notified by fellow RN that pt had removed Cerebell headband.
--- NOTE | 2024-12-31 09:19 | PTCARENOTE ---
Pt now oriented to place and year. Speech still slow, WRIGHT, follows commands. Updated Dr. France, Neurologist, of pt status and lack of Ceribell.
--- NOTE | 2024-12-31 09:45 | EEGC.RPT ---
Continuous EEG Report
Recording
Type of EEG: Continuous
Report
The recording begins 12/30/24 4:05 PM until 8:45 PM
Resumes 12/30/24 11:53 PM until 8:14 AM
total recording time 13 Hours
Clinical Background:�84 year old man recently admitted for nonconvulsive status epilepticus. His typical seizures consist of confusion, encephalopathy, aphasia, apraxia
Introduction: A rapid EEG was done using Ceribell device.
Background: In the most alert state, there is continuous generalized slowing, consisting of polymorphic theta more than delta activity. There is spontaneous variability and reactivity.�
Sleep: No sleep is seen.�
Focal/epileptiform: interictal spike and slow waves are seen at F8
Seizures: None. The Ceribell device detected seizure burden up to 13% at times. on review, I do not believe any of these were actually seizures.
I reviewed the Ceribell EEG from December 27-, and his seizures consist of generalized spike and waves building up to 2.5 Hz
Impression: Epileptogenicity of the right frontotemporal region, superimposed on moderate generalized cerebral dysfunction. No seizures seen.
--- NOTE | 2024-12-31 11:08 | PTOTSP ---
Speech Therapy Evaluation:
Pt with known hx of mild oral/pharyngeal dysphagia s/p VSE 02/10/2023. Pt with predisposing risk factors of dysphagia including hx of epilepsy, lung cancer, and known dysphagia. Precipitating risk factors include recent seizure activity. On this
date, pt with functional oral phase and no signs concerning for aspiration at bedside. Risk of aspiration elevated given waxing/waning mentation, tenuous respiratory status, impaired cough function, previous aspiration pneumonia, and GI hx including
GERD and Zenkers. CXR without pneumonia and WBC WNL.
Recommend:
1. Continue regular solids and thin liquids
2. Medications as tolerated
3. Strict aspiration and reflux precautions
4. Full supervision, partial assistance
5. CATTLE RANCHER to follow to monitor tolerance of diet and determine if pt would benefit from instrumental assessment.
[2024-12-31] MEDS: MIRALAX 17 GRAMS PO (11:16)
--- NOTE | 2024-12-31 11:56 | W.PN.INTV ---
Addendum entered and electronically signed by Velma Yancey MD 12/31/24 13:03:
Patient transferring to telemetry floor
[facility] service will sign off, please call as needed
Original Note:
Today's Communication / Plan
Recommendations
- Start DVT prophylactic dose of Lovenox while INR is subtherapeutic
- Add MiraLAX daily
Assessment
-
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
October 2020, IGT, and facial melanoma s/p resection and history of colon polyps who presented with altered mental status. noticed patient was only able to speak 1�2 word sentences in the morning of 12/27. There was a similar episode reportedly
about 1 week prior on 12/13/2024 the patient was hospitalized here until 12/17 due to sigmoid diverticulitis. He was discharged home on Flagyl + cefdinir. He had finished the antibiotics this past Monday (12/24). When he came to the hospital, the
Ceribell device was placed onto the patient showing high seizure burden consistent with nonconvulsive status epilepticus. Case was discussed with neurology, and he was given lacosamide, Keppra and Ativan and admitted to the ICU for further care.
[facility] services consulted for additional management/recommendations.
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
impaired glucose tolerance, history of colon polyps
12/31: Patient hemodynamically stable. Currently on D5 half-normal at 75 mL an hour, saturating 100% on 2 L. MAP of 77.
Assessment and plan:
#1. Status epilepticus, breakthrough tonic-clonic seizure 12/29 at night, followed by postictal state
- Intermittent episodes of disorientation, decreased responsiveness noted
- Neurology service on case, currently on Tegretol Xcopri, Keppra, Vimpat
- As needed Ativan for breakthrough seizure
- Currently protecting his airway
- Known history of epilepsy, on multiple antiepileptic medications
- On maintenance IV fluids due to decreased p.o. intake
#2. History of atrial fibrillation
- Normal sinus rhythm currently
#3. Chronic warfarin therapy, supratherapeutic INR on admission
- Coagulopathy resolved, INR subtherapeutic now
- Resumed Coumadin
- PT/INR in a.m
- Add DVT prophylactic dose of Lovenox while INR is subtherapeutic
#4. HTN
- Continue current medications
- Added Vasotec as needed SBP greater than 170
Other medical diagnoses:
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
#?CKD stage III. Cr 0.8 today
#History of melanoma involving the face s/p resection
#Ambulatory dysfunction
#History of COREY/CSA previously on BiPAP , no longer using since October 2020 after significant weight loss
#Mild intermittent asthma
#Aortic stenosis
DVT prophylaxis: Resume Coumadin.
Critical Care time 45 mins -- The patient is admitted for acute critical illness for the treatment of vital organ failure and/or prevention of further life-threatening conditions. Total care includes time spent in review of history, physical exam,
medications, hemodynamic/ventilator parameters, laboratory data, imaging and discussion with house staff, pharmacy, respiratory therapy, gold tooler, and nursing.
Data:
CT Head 12/27/2024:
No acute intracranial abnormality noted.
Mild atrophy. Stable
Mild periventricular small vessel ischemic disease. Stable
Transthoracic echocardiogram 12/02/2024:
Left ventricle is small in size. Mild concentric left ventricular hypertrophy.
Normal regional wall motion. Normal left ventricular systolic function. Left
ventricular ejection fraction is 70% by Willingham's biplane method of discs.
Normal diastolic function.
Trileaflet aortic valve. Calcified aortic valve. Thickened aortic valve with
restricted leaflet motion. Mild to moderate aortic stenosis. Peak/mean
gradients across the valve are 37/20 mmHg. Using an LVOT of 2.0 cm the
calculated valve area is 1.2 cm2. Trace aortic regurgitation.
Since echo July 2023, ejection fraction has improved from 45-50% to 70%. TR
is improved from severe to trace. PA systolic pressure is decreased from 60-65
mmHg to 24 mmHg. Right ventricular systolic function is now normal.
.
Subjective Dataa
Subjective Data
Date of Service:
Date of Service: December 31, 2024
Chief Complaint: [facility] Follow Up
Subjective:
Patient lying in bed, in no acute distress. Intermittent episodes of decreased responsiveness noted.
Review of Systems
General: Other (Fluctuating mental status)
Objective Data
Data Reviewed
Vital Signs / I&O / Oxygen:
Vital Signs
Temp Pulse Resp BP Pulse Ox
98.4 F 63 11 138/51 98
12/31/24 08:00 12/31/24 09:00 12/31/24 09:00 12/31/24 09:00 12/31/24 09:00
Intake and Output
12/30/24 12/31/24 01/01/25
06:59 06:59 06:59
Intake Total 560 / 560 1860 / 1935 225 / 225
Output Total 1070 / 1070 1500 / 1500
Balance -510 / -510 360 / 435 225 / 225
SaO2 98
Nasal Cannula flow liters per 2
minute
Physical Exam
General: Comfortable
HEENT: Normocephalic and Anicteric
Cardiovascular: S1-S2, Murmur (Soft systolic murmur) and Peripheral Edema (negative)
Respiratory: Wheeze (negative) and Non-Labored Respirations
GI: Soft, Non Distended, Non Tender and Normal Bowel Sounds
Neurology: Other (Wakes up with stimulation. Alertness level varies)
Skin: Warm and Dry
Labs/Micro/Reports
Lab Data
12/31/24 03:02
12/31/24 03:02
Laboratory Results
12/31/24
03:02
PT 19.4 H
INR 1.61
--- NOTE | 2024-12-31 12:03 | W.PN.NEURO.1 ---
Today's Communication / Plan
-
continue ASDs
patient thinking about getting LP
Neuro Assessment/Plan
Assessment
IMPRESSIONS
Abrupt change in mental status followed by testing by Ceribell device demonstrating status epilepticus, remediated by medication in the ED with gradual worsening again by device measurement
Prior medications have included: Lacosamide, Levetiracetam, Carbamazepine, Cenobamate
Plan
RECOMMENDATIONS:
outpatient Midazolam nasal spray in case of new symptoms
eventual outpatient advancement of Cenobamate from 200 mg to 300 mg, outpatient RX sent 25 mg increment increases weekly until 300 mg
continue Levetiracetam 1750 BID, carbamazepine 400 BID, Vimpat 200 BID
will discontinue Lacosamide prior to discharge
no clear evidence of need for neuroimaging or additional EEG monitoring due to presumed poor control
we discussed that with his seeming to worsen in the past year with apparent increasing seizure frequency and cognitive decline, and this present episode of status epilepticus being apparently unprovoked, we could consider LP to rule out
viral/autoimmune causes, though the yield would be low ~10%, as there are numerous other reasons why his epilepsy could be worsening including progression of a neurodegenerative dementia, toxic/metabolic, etc
Will continue to follow as outpatient.
Subjective/Objective
Subjective Data
Date of Service: December 31, 2024
overnight no seizures.
13 hrs of Ceribell EEG - AI detected up to 13% seizure burden; on review no seizures seen
reports yesterday evening worsened mentation, this morning essentially back to baseline
no hallucinations
we discussed that his epilepsy began as a child after meningitis; he was well controlled most of his life until the past ~year with increasing seizures, despite starting Xcopri and increasing dose of meds, and some amount of deteriorating mental
status; this present admission of status epilepticus appears unprovoked
Objective Data
Vital Signs
Temp Pulse Resp BP Pulse Ox
36.9 C 63 11 138/51 98
12/31/24 08:00 12/31/24 09:00 12/31/24 09:00 12/31/24 09:00 12/31/24 09:00
Lab Results
12/31/24 03:02
12/31/24 03:02
PT 19.4 Sec (11.4-14.6) H 12/31/24 03:02
INR 1.61 12/31/24 03:02
Sodium 136 mmol/L (135-145) 12/31/24 03:02
Potassium 3.9 mmol/L (3.5-5.1) 12/31/24 03:02
BUN 17 mg/dl (9-20) 12/31/24 03:02
Glucose 187 mg/dl (70-99) H 12/31/24 03:02
Calcium 8.8 mg/dl (8.4-10.2) 12/31/24 03:02
Phosphorus 4.0 mg/dl (2.5-4.5) 12/29/24 03:34
Patient Allergies
hydralazine Allergy (Verified 12/27/24 14:52)
Unknown
pollen extracts Allergy (Verified 12/27/24 14:52)
nasal symptoms
Physical Exam
-
AAOx2, speech clear,
VFF, EOMI, face symmetric
--- NOTE | 2024-12-31 12:50 | PTCARENOTE ---
Pt much more alert and oriented as compared to prior assessment. at bedside, tolerating lunch without issue.
--- NOTE | 2024-12-31 14:49 | CM ---
12/29/24 therapy recommendation for Home PT vs SNF. Unable to do follow-up evals due to medical status and/or testing. WIll follow for progression.
--- NOTE | 2024-12-31 14:53 | W.PN.HOSP.TC ---
Today's Communication/Plan
-
Assessment / Plan
Assessment / Plan
General: No Apparent Distress, Comfortable
HEENT: NormoCephalic, Moist mucous membranes, Atraumatic
Respiratory: Clear and Non Labored Respirations
Cardiac: S1/S2 and Regular Rhythm; No Rub or Gallop
GI: Soft, Non Tender, Non Distended and Normal Bowel Sounds
Musculoskeletal: No Edema, no deformity
: No Bowden
Neuro: Awake and alert, Nonfocal/grossly intact
Psych: Calm and cooperative
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 POC EEG showed high burden
seizure activity, admitted for status epilepticus, improved, neurologist provided recommendations; as per his conversation with bedside - patient back to baseline, midazolam spray recommended to prevent worsening seizures as per Neurologist. No
additional neurologic mgmt. Discussed in details with STR vs home PT - she would like to take patient home.
A/P:
#Acute metabolic encephalopathy:
- 2/2 status epilepticus with postictal state, mental status now significantly improving
- Initially planned for discharge 12/29 however became progressively somnolent with some concern for recurrent seizure activity, restarted on Vimpat and Keppra inpatient
- Continuing antiepileptic regimen with carbamazepine 400 mg p.o. twice daily, cenobamate 200 mg p.o. at night, lacosamide 200 mg p.o. twice daily, and levetiracetam 1750 mg p.o. twice daily
- Neurology following, considering LP if patient agreeable
- Seizure precautions
#Cough
-with PMHX of aspiration pneumonia and leukocytosis
-Chest XR without new signs of pneumonia
-leukocytosis resolved- most likely seizure related
-Follow off Abx
#Afib, unspecified
#Supratherapeutic INR
- Initially INR was 3.3, however dropped to 1.9
- Restarted warfarin with INR goal 2-3, INR 1.6 today
#chronic anemia
Hgb around 9.0-10 as per chart review
Stable hemoglobin, monitor
Brown stools as per notes
#Chronic HFmrEF
#Essential HTN
#CKD stage II/III
#Anemia of chronic disease
#GERD
cont home meds
#Hx Right Upper Lobe Adenocarcinoma s/p Lobectomy
Outpatient w/u for paraneoplastic syndrome
DVT ppx warfarin
full code
I have spent at least 40 minutes reviewing chart, test results, communication with consultants, family and providing direct patient care
Anticipated Discharge: 24 - 48 hours
Subjective/Interval History
-
Date of Service: December 31, 2024
Patient was seen and examined at bedside this morning. Awake and alert, significant improvement from yesterday and overnight.
Objective Data
-
Labs:
Laboratory Results
12/31/24
03:02
WBC 5.9
Hgb 10.5 L
Hct 30.1 L
Plt Count 275
PT 19.4 H
INR 1.61
Sodium 136
Potassium 3.9
Chloride 99
Carbon Dioxide 30
BUN 17
Creatinine 0.8
Glucose 187 H
Calcium 8.8
Vital Signs:
Vital Signs
Temp Pulse Resp BP Pulse Ox
97.7 F 63 19 125/77 98
12/31/24 12:00 12/31/24 12:00 12/31/24 12:00 12/31/24 12:00 12/31/24 12:00
I&O
12/30/24 12/31/24 01/01/25
06:59 06:59 06:59
Intake Total 560 / 560 1860 / 1935 930 / 930
Output Total 1070 / 1070 1500 / 1500
Balance -510 / -510 360 / 435 93 /
Review of Systems
-
History Source: Patient
All other systems: Reviewed and negative
Physical Exam
-
General: No Apparent Distress
[2024-12-31] MEDS: D5/0.45%NACL 1000 IV (15:02)
--- NOTE | 2024-12-31 15:05 | PTCARENOTE ---
reporting to RN that pt is again experiencing increased confusion, slow response and L hand tremors. Neuro assessment is again reflective of 0800 assessment with slow response, not oriented to time or place, an upward right gaze but will track
RN around the room with encouragement. Lasted about 15min followed by sound sleep.
[2024-12-31] MEDS: NON-FORMULARY ITEM 200 MG PO (17:31)
[2024-12-31] MEDS: COUMADIN 4 MG PO (17:31)
[2024-12-31] MEDS: FLOMAX 0.4 MG PO (17:31)
[2024-12-31] MEDS: LOVENOX 40 MG SC (17:31)
--- NOTE | 2024-12-31 19:13 | PTCARENOTE ---
Report given and pt to [id number] via bed without issue
[2024-12-31] MEDS: LONITEN PO (20:27)
[2025-01-01] VITALS (9 sets, daily range): BP systolic 71–196; BP diastolic 51–80; PULSE 59–60; O2SAT 98
[2025-01-01 06:43] LABS: INR 2.03; PT 23.1 Sec (11.4-14.6)
[2025-01-01] MEDS: NORVASC PO (08:37)
[2025-01-01] MEDS: PROTONIX 40 MG PO (08:38)
[2025-01-01] MEDS: KEPPRA 1750 MG IV ×2 (08:39→20:33)
[2025-01-01] MEDS: VITAMIN B-12 1000 MCG PO (08:39)
[2025-01-01] MEDS: VIMPAT 200 MG PO ×2 (08:39→20:41)
[2025-01-01] MEDS: LONITEN PO (08:39)
[2025-01-01] MEDS: TEGRETOL XR (EXTENDED RELEASE) 400 MG PO ×2 (08:39→20:42)
[2025-01-01] MEDS: METAMUCIL, KONSYL PO (08:42)
[2025-01-01] MEDS: MIRALAX 17 GRAMS PO (08:42)
[2025-01-01] MEDS: CATAPRES-TTS-2 0.2 MG TRANSDERM (12:10)
--- NOTE | 2025-01-01 13:09 | W.PN.HOSP.TC ---
Today's Communication/Plan
-
Assessment / Plan
Assessment / Plan
General: No Apparent Distress, Comfortable
HEENT: NormoCephalic, Moist mucous membranes, Atraumatic
Respiratory: Clear and Non Labored Respirations
Cardiac: S1/S2 and Regular Rhythm; No Rub or Gallop
GI: Soft, Non Tender, Non Distended and Normal Bowel Sounds
Musculoskeletal: No Edema, no deformity
: No Bowden
Neuro: Awake and alert, Nonfocal/grossly intact
Psych: Calm and cooperative
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 POC EEG showed high burden
seizure activity, admitted for status epilepticus, improved, neurologist provided recommendations; as per his conversation with bedside - patient back to baseline, midazolam spray recommended to prevent worsening seizures as per Neurologist. No
additional neurologic mgmt. Discussed in details with STR vs home PT - she would like to take patient home.
A/P:
#Acute metabolic encephalopathy:
- 2/2 status epilepticus with postictal state, now resolved back to baseline mental status
- Initially planned for discharge 12/29 however became progressively somnolent with some concern for recurrent seizure activity, restarted on Vimpat and Keppra inpatient
- Continuing antiepileptic regimen with carbamazepine 400 mg p.o. twice daily, cenobamate 200 mg p.o. at night, lacosamide 200 mg p.o. twice daily, and levetiracetam 1750 mg p.o. twice daily
- Neurology following, planning LP during this admission, labs ordered
- Seizure precautions
#Cough
-with PMHX of aspiration pneumonia and leukocytosis
-Chest XR without new signs of pneumonia
-leukocytosis resolved- most likely seizure related
-Follow off Abx
#Afib, unspecified
#Supratherapeutic INR
- Initially INR was 3.3
- Restarted warfarin with INR goal 2-3, INR 2.0 today
#chronic anemia
Hgb around 9.0-10 as per chart review
Stable hemoglobin, monitor
Brown stools as per notes
#Chronic HFmrEF
#Essential HTN
#CKD stage II/III
#Anemia of chronic disease
#GERD
cont home meds
#Hx Right Upper Lobe Adenocarcinoma s/p Lobectomy
Outpatient w/u for paraneoplastic syndrome
DVT ppx warfarin
full code
I have spent at least 40 minutes reviewing chart, test results, communication with consultants, family and providing direct patient care
Anticipated Discharge: 24 - 48 hours
Subjective/Interval History
-
Date of Service: January 01, 2025
Patient was seen and examined at bedside this morning. Awake and alert, mental status significantly improved, close to baseline per at bedside. He decided he is okay with proceeding with lumbar puncture for further evaluation of his seizures.
Objective Data
-
Labs:
Laboratory Results
01/01/25
06:22
PT 23.1 H
INR 2.03
Vital Signs:
Vital Signs
Temp Pulse Resp BP Pulse Ox
98.2 F 65 16 159/58 98
01/01/25 11:13 01/01/25 11:13 01/01/25 11:13 01/01/25 12:10 01/01/25 11:13
I&O
12/31/24 01/01/25 01/02/25
06:59 06:59 06:59
Intake Total 1860 / 1935 1620 / 1620
Output Total 1500 / 1500 575 / 575
Balance 360 / 435 1045 / 1045
Review of Systems
-
History Source: Patient
All other systems: Reviewed and negative
Physical Exam
-
General: No Apparent Distress
--- NOTE | 2025-01-01 16:22 | CM ---
Patient seen at bedside with
PT rec home health
discussed options with - prefer [facility]
notified [facility] liaison
Patient going to IR now
PLAN: Home with [facility] (once accepted)
[2025-01-01 18:10] LABS: CSF Clarity Clear; CSF Color Colorless; CSF Tube # 3; Red Cell Count/CSF 1 mm^3; White Cell Count/CSF 2 mm^3 (0-5)
[2025-01-01 18:12] LABS: Spinal Fluid Glucose 68 mg/dl (40-70); Spinal Fluid Protein 96 mg/dl (12-60)
[2025-01-01] MEDS: COUMADIN 4 MG PO (18:38)
[2025-01-01] MEDS: NON-FORMULARY ITEM 200 MG PO (18:39)
[2025-01-01] MEDS: LOVENOX 40 MG SC (18:47)
[2025-01-01] MEDS: FLOMAX 0.4 MG PO (18:48)
[2025-01-01] MEDS: LONITEN 10 MG PO (20:42)
[2025-01-02] VITALS (12 sets, daily range): BP systolic 133–168; BP diastolic 55–74; BMI 21.5
[2025-01-02] MEDS: KEPPRA 1750 MG IV ×2 (07:52→19:56)
[2025-01-02] MEDS: TEGRETOL XR (EXTENDED RELEASE) 400 MG PO ×2 (07:54→19:55)
[2025-01-02] MEDS: PROTONIX 40 MG PO (07:54)
[2025-01-02] MEDS: NORVASC 2.5 MG PO (07:54)
[2025-01-02] MEDS: VITAMIN B-12 1000 MCG PO (07:54)
[2025-01-02] MEDS: LONITEN 10 MG PO ×2 (07:54→19:55)
[2025-01-02] MEDS: VIMPAT 200 MG PO ×2 (07:54→19:56)
[2025-01-02] MEDS: METAMUCIL, KONSYL 1 PACKET PO (07:55)
[2025-01-02] MEDS: MIRALAX 17 GRAMS PO (07:55)
--- NOTE | 2025-01-02 10:14 | CM ---
[facility]
IMM explained & signed. In chart
tt hospitalist for CM consult for [facility]
PLAN: Home with [facility] when stable
to transport
--- NOTE | 2025-01-02 10:51 | VNURNOTE ---
Home Health Liaison met with patient and spouse at bedside to discuss [facility] nurse/therapy, visits, schedule and homebound status. Patient is known to [facility] from past service. Both are agreeable and understand that visits at home will be 2-3 x per
week to assess and teach medical management.
Patient and spouse are aware that [facility] will contact them for start of care in 1-2 days after discharge from .
[facility] referral accepted in [facility].
--- NOTE | 2025-01-02 12:55 | W.PN.HOSP.TC ---
Today's Communication/Plan
-
Assessment / Plan
Assessment / Plan
General: No Apparent Distress, Comfortable
HEENT: NormoCephalic, Moist mucous membranes, Atraumatic
Respiratory: Clear and Non Labored Respirations
Cardiac: S1/S2 and Regular Rhythm; No Rub or Gallop
GI: Soft, Non Tender, Non Distended and Normal Bowel Sounds
Musculoskeletal: No Edema, no deformity
: No Bowden
Neuro: Awake and alert, Nonfocal/grossly intact
Psych: Calm and cooperative
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 POC EEG showed high burden
seizure activity, admitted for status epilepticus, improved, neurologist provided recommendations; as per his conversation with bedside - patient back to baseline, midazolam spray recommended to prevent worsening seizures as per Neurologist. No
additional neurologic mgmt. Discussed in details with STR vs home PT - she would like to take patient home.
A/P:
#Acute metabolic encephalopathy:
- 2/2 status epilepticus with postictal state, now resolved back to baseline mental status
- Initially planned for discharge 12/29 however became progressively somnolent with some concern for recurrent seizure activity, restarted on Vimpat and Keppra inpatient
- Continuing antiepileptic regimen with carbamazepine 400 mg p.o. twice daily, cenobamate 200 mg p.o. at night, lacosamide 200 mg p.o. twice daily, and levetiracetam 1750 mg p.o. twice daily
- S/p lumbar puncture yesterday 01/01, results show elevated CSF total protein, other labs pending
- Neurology following, planning to start on IVIG due to elevated CSF protein levels
- Seizure precautions
#Cough
-with PMHX of aspiration pneumonia and leukocytosis
-Chest XR without new signs of pneumonia
-leukocytosis resolved- most likely seizure related
-Follow off Abx
#Afib, unspecified
#Supratherapeutic INR
- Initially INR was 3.3
- Restarted warfarin with INR goal 2-3
#chronic anemia
Hgb around 9.0-10 as per chart review
Stable hemoglobin, monitor
Brown stools as per notes
#Chronic HFmrEF
#Essential HTN
#CKD stage II/III
#Anemia of chronic disease
#GERD
cont home meds
#Hx Right Upper Lobe Adenocarcinoma s/p Lobectomy
Outpatient w/u for paraneoplastic syndrome
DVT ppx warfarin
full code
I have spent at least 40 minutes reviewing chart, test results, communication with consultants, family and providing direct patient care
Anticipated Discharge: 24 - 48 hours
Subjective/Interval History
-
Date of Service: January 02, 2025
Patient was seen and examined at bedside this morning. Status post lumbar puncture yesterday, tolerated procedure well.
Objective Data
-
Vital Signs:
Vital Signs
Temp Pulse Resp BP Pulse Ox
98.1 F 58 16 142/63 97
01/02/25 10:52 01/02/25 10:52 01/02/25 10:52 01/02/25 10:52 01/02/25 10:52
I&O
01/01/25 01/02/25 01/03/25
06:59 06:59 06:59
Intake Total 1620 / 1620 480 / 480
Output Total 575 / 575 450 / 450
Balance 1045 / 1045
Review of Systems
-
History Source: Patient
All other systems: Reviewed and negative
Physical Exam
-
General: No Apparent Distress
[2025-01-02] MEDS: BENADRYL 25 MG PO (13:53)
[2025-01-02] MEDS: GAMMAGARD 300 IV (13:54)
--- NOTE | 2025-01-02 15:31 | W.PN.NEURO.1 ---
Today's Communication / Plan
-
start IVIG x5 days
Neuro Assessment/Plan
Assessment
IMPRESSIONS
Abrupt change in mental status followed by testing by Ceribell device demonstrating status epilepticus, remediated by medication in the ED with gradual worsening again by device measurement
Prior medications have included: Lacosamide, Levetiracetam, Carbamazepine, Cenobamate
Plan
RECOMMENDATIONS:
outpatient Midazolam nasal spray in case of new symptoms
eventual outpatient advancement of Cenobamate from 200 mg to 300 mg, outpatient RX sent 25 mg increment increases weekly until 300 mg
continue Levetiracetam 1750 BID, carbamazepine 400 BID, Vimpat 200 BID
will discontinue Lacosamide prior to discharge
no clear evidence of need for neuroimaging or additional EEG monitoring due to presumed poor control
we discussed that with his seeming to worsen in the past year with apparent increasing seizure frequency and cognitive decline, and this present episode of status epilepticus being apparently unprovoked, we did LP, showing WBC 2, RBC 1, protein 96.
paraneoplastic panel pending
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
trial of IVIG x5 days, premedicate tylenol/benadryl
Subjective/Objective
Subjective Data
Date of Service: January 02, 2025
feeling well
Objective Data
Vital Signs
Temp Pulse Resp BP Pulse Ox
36.7 C 62 16 143/55 97
01/02/25 10:52 01/02/25 15:02 01/02/25 10:52 01/02/25 15:02 01/02/25 10:52
Lab Results
12/31/24 03:02
12/31/24 03:02
PT 23.1 Sec (11.4-14.6) H 01/01/25 06:22
INR 2.03 01/01/25 06:22
Sodium 136 mmol/L (135-145) 12/31/24 03:02
Potassium 3.9 mmol/L (3.5-5.1) 12/31/24 03:02
BUN 17 mg/dl (9-20) 12/31/24 03:02
Glucose 187 mg/dl (70-99) H 12/31/24 03:02
Calcium 8.8 mg/dl (8.4-10.2) 12/31/24 03:02
Phosphorus 4.0 mg/dl (2.5-4.5) 12/29/24 03:34
Patient Allergies
hydralazine Allergy (Verified 12/27/24 14:52)
Unknown
pollen extracts Allergy (Verified 12/27/24 14:52)
nasal symptoms
Physical Exam
-
AAOx2, speech clear,
VFF, EOMI, face symmetric
[2025-01-02] MEDS: FLOMAX 0.4 MG PO (17:09)
[2025-01-02] MEDS: COUMADIN 4 MG PO (17:09)
[2025-01-02] MEDS: NON-FORMULARY ITEM 200 MG PO (17:10)
[2025-01-03] VITALS (13 sets, daily range): BP systolic 105–155; BP diastolic 44–68; BMI 21.8
[2025-01-03] MEDS: VITAMIN B-12 1000 MCG PO (07:30)
[2025-01-03] MEDS: TEGRETOL XR (EXTENDED RELEASE) 400 MG PO ×2 (07:30→20:08)
[2025-01-03] MEDS: PROTONIX 40 MG PO (07:30)
[2025-01-03] MEDS: LONITEN 10 MG PO ×2 (07:30→20:08)
[2025-01-03] MEDS: KEPPRA 1750 MG IV ×2 (07:31→20:08)
[2025-01-03] MEDS: NORVASC 2.5 MG PO (07:31)
[2025-01-03] MEDS: VIMPAT 200 MG PO ×2 (07:31→20:08)
[2025-01-03] MEDS: MIRALAX 17 GRAMS PO (07:39)
[2025-01-03] MEDS: METAMUCIL, KONSYL 1 PACKET PO (07:39)
[2025-01-03 08:46] LABS: INR 1.86; PT 21.6 Sec (11.4-14.6)
[2025-01-03] MEDS: ZOFRAN 4 MG IV (09:38)
[2025-01-03] MEDS: VASOTEC 0.625 MG IV (09:38)
--- NOTE | 2025-01-03 10:02 | PTCARENOTE ---
pt family member notified staff that pt was not feeling well. Pt reported feeling great this morning and after finishing breakfast he was feeling weak and nauseous. Pt BP 174/71. strength equal b/l, pupils 5mm, JAMMIE. Pt noted to be very drowsey,
difficulty keeping eyes open, heading drifting down while talking, speech slower then this AM, and mild slurring. Hospitalist Dr. Elise and neurologist Dr. France notified via tt. Pt treated with Zofran 4mg IV and Vasotec 0.625mg IV. pt given NIH
pictures, words, and sentences and was noted to be slowed in answering with mild slowing. Prior to leaving the room the pt had rapid changed in mental status and became alert, clearer speech, holding head up while speaking, and stated he was feeling
better. No further ordered provided at this time. Dr. France noted he would come see the pt next. and pt educated to notify staff with any new changed in mental status.
pt had first dose of IVIG /5 at 1400, tolerate well throughout administration, no concerns noted by this nurse yesterday or the caustic cresylate shift superintendent nurse last night.
--- NOTE | 2025-01-03 11:48 | CM ---
Patient seen at bedside with
referral in [facility] for [facility]
PLAN: Home with [facility] when stable
to transport
[2025-01-03] MEDS: COMPAZINE 5 MG IV (12:00)
[2025-01-03] MEDS: FLUSH (NSS) 2 FLUSH IV (12:09)
--- NOTE | 2025-01-03 13:44 | W.PN.HOSP.TC ---
Today's Communication/Plan
-
Assessment / Plan
Assessment / Plan
General: No Apparent Distress, Comfortable
HEENT: NormoCephalic, Moist mucous membranes, Atraumatic
Respiratory: Clear and Non Labored Respirations
Cardiac: S1/S2 and Regular Rhythm; No Rub or Gallop
GI: Soft, Non Tender, Non Distended and Normal Bowel Sounds
Musculoskeletal: No Edema, no deformity
: No Bowden
Neuro: Awake, slightly lethargic with some stuttering and word finding difficulty, Nonfocal/grossly intact
Psych: Calm and cooperative
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 POC EEG showed high burden
seizure activity, admitted for status epilepticus, improved, neurologist provided recommendations; as per his conversation with bedside - patient back to baseline, midazolam spray recommended to prevent worsening seizures as per Neurologist. No
additional neurologic mgmt. Discussed in details with STR vs home PT - she would like to take patient home.
A/P:
#Acute metabolic encephalopathy:
- 2/2 status epilepticus with postictal state, now resolved, appears close to baseline mental status although was slightly lethargic this morning but had just woken up
- Initially planned for discharge 12/29 however became progressively somnolent with some concern for recurrent seizure activity, restarted on Vimpat and Keppra inpatient
- Continuing antiepileptic regimen with carbamazepine 400 mg p.o. twice daily, cenobamate 200 mg p.o. at night, lacosamide 200 mg p.o. twice daily, and levetiracetam 1750 mg p.o. twice daily
- S/p lumbar puncture 01/01, results show elevated CSF protein, no evidence of meningitis/encephalitis
- Neurology following, started on IVIG for 5 days (today is day 09/04, last day 01/06/2025)
- Seizure precautions
#Cough
-with PMHX of aspiration pneumonia and leukocytosis
-Chest XR without new signs of pneumonia
-leukocytosis resolved- most likely seizure related
-Follow off Abx
#Afib, unspecified
#Supratherapeutic INR initially of 3.3
- Restarted warfarin with INR goal 2-3
- Currently bridging with weight-based Lovenox now that INR is fallen below 2.0 and he may potentially be hypercoagulable while on IVIG
#chronic anemia
Hgb around 9.0-10 as per chart review
Stable hemoglobin, monitor
Brown stools as per notes
#Chronic HFmrEF
#Essential HTN
#CKD stage II/III
#Anemia of chronic disease
#GERD
cont home meds
#Hx Right Upper Lobe Adenocarcinoma s/p Lobectomy
w/u for paraneoplastic syndrome
DVT ppx warfarin
full code
I have spent at least 40 minutes reviewing chart, test results, communication with consultants, family and providing direct patient care
Anticipated Discharge: > 48 hours
Subjective/Interval History
-
Date of Service: January 03, 2025
Patient was seen and examined at bedside this morning. Appears more lethargic today than yesterday but was just waking up. Was started on IVIG yesterday.
Objective Data
-
Labs:
Laboratory Results
01/03/25
08:02
PT 21.6 H
INR 1.86
Vital Signs:
Vital Signs
Temp Pulse Resp BP Pulse Ox
97.7 F 70 16 142/52 99
01/03/25 10:54 01/03/25 10:54 01/03/25 10:54 01/03/25 11:37 01/03/25 10:54
I&O
06/05/25 06/06/25 06/07/25
06:59 06:59 06:59
Intake Total 480 / 480
Output Total 450 / 450 450 / 450
Balance 30 / 30 -450 / -450
Review of Systems
-
History Source: Patient
All other systems: Reviewed and negative
Physical Exam
-
General: No Apparent Distress
--- NOTE | 2025-01-03 13:47 | PTCARENOTE ---
PT attempted to work with pt. Pt BP elevated in the 180s sys and reporting nausea and weakness. PT/OT notified nurse. manual BP checked, 142/52. Dr. Vinson notified, stat order of Compazine placed and administered. Family at the bedside. pt
remains asleep in bed, easily arousable although pt remains very drowsy.
[2025-01-03 14:55] LABS: B.E. 5.6 mmol/L; HCO3 31.1 mmol/L (21-28); PCO2 49 mmHg (35-48); PO2 104 mmHg (83-108); pH 7.41 (7.35-7.45)
[2025-01-03 15:24] LABS: ALT (SGPT) 13 U/L (0-50); AST (SGOT) 17 U/L (17-59); Albumin 3.5 g/dl (3.5-5.0); Alkaline Phosphatase 48 U/L (38-126); Blood Urea Nitrogen 22 mg/dl (9-20); Carbon Dioxide 28 mmol/L (22-30); Chloride 105 mmol/L (98-107); Estimated Creatinine Clearance 56 ml/min; Glucose 152 mg/dl (70-99); Potassium 4.4 mmol/L (3.5-5.1); Sodium 137 mmol/L (135-145); Total Bilirubin 0.4 mg/dl (0.2-1.3); eGFR > 60.00
[2025-01-03 15:29] LABS: Ammonia < 9 umol/L (9-30)
[2025-01-03] MEDS: GAMMAGARD 300 IV (16:00)
[2025-01-03] MEDS: NON-FORMULARY ITEM 200 MG PO (17:00)
[2025-01-03] MEDS: COUMADIN 4 MG PO (17:00)
[2025-01-03] MEDS: FLOMAX 0.4 MG PO (17:00)
[2025-01-03] MEDS: LOVENOX 40 MG SC (17:01)
--- NOTE | 2025-01-03 18:01 | PTCARENOTE ---
this nurse entered pt room at 1415 to start IVIG, found pt to be slumped over, difficult to arouse, slurring words, stuttering on words, having difficulty answering questions, giving one word answer, pt had t be asked sereval times before he
provided answer. pt at the bedside, states that he has been sleeping all morning and seemed off of baseline. this nurse contacted Dr. France and Dr. Vinson in a group chat via tt about pt status. ABG, CMP, and ammonia labs ordered, drawn and
sent to lab. labs resulted and providers notified via tt. after further discussion Dr. France approved IVIG administration at 1555. IVIG started at 1600, pt tolerating at this time.
pt continue to alter in mental status ranging from drowsy and difficulty communicating to alert and conversing appropriately with family and staff.
[2025-01-04] VITALS (9 sets, daily range): BP systolic 134–199; BP diastolic 56–87; PULSE 65; BMI 21.8
[2025-01-04] MEDS: ZOFRAN 4 MG IV (01:31)
[2025-01-04 01:42] LABS: Glucose - Point of Care 124 mg/dl (70-99)
--- NOTE | 2025-01-04 01:53 | W.PN.UPDATE ---
Update Note
Progress Note Update
RN contacted to stating that pt was vomiting, tremulous and pale. BP 199/87 HR 78 96% RA. PRN Zofran given. Previous notes indicated that during seizure episodes pt presented in a similar manner. Encouraged PRN Ativan. On assessment pt AAOx3 but
seems drowsy- nauseous post Zofran- holding an emesis basin.�RN noted L arm tremors and delayed/slow speech noted. Pt following commands at this time but response time is also delayed. Follow up BP 144/64 HR 65- no further N/V. RN states pt appears
drowsy but still follows commands.�
[2025-01-04] MEDS: ATIVAN 1 MG IV (01:55)
[2025-01-04] MEDS: NSS (PRESERVATIVE FREE) 0.5 ML IV (01:55)
--- NOTE | 2025-01-04 02:09 | PTCARENOTE ---
Addendum entered by Liz Campbell RN 01/04/25 03:40:
No c/o nausea. BP 144/64 HR 65. Pt drowsy but aaox3 and slowly following directions. Plan of care ongoing.
Original Note:
at approximately 0125, audible sounds of vomiting heard from pt's room. Small amount of non-bloody emesis present in basin. Pt appeared pale, diaphoretic, and tremulous mainly in his LUE and jaw. Pt with slow and slurred speech when responding to
questions. BP 199/87, HR 74, temp 98.6, 96% RA, RR 18. Manual BP 190/80. PRN zofran given (see MAR). PLUMBING [employer]IC notified and up to floor to assess pt. Instructed to give PRN ativan 1mg (see MAR). Pt stated he is 'feeling a little better'. Bed in low
position and call urban within reach. Plan of care ongoing.
[2025-01-04 08:16] LABS: % Eosinophils 0.5 % (0-6); % Immature Granulocytes 0.5 % (0-0.5); % Lymphocytes 23.7 % (20.5-51.1); % Monocytes 15.9 % (1.7-9.3); % Neutrophils 58.4 % (42.2-75.2); Absolute Lymphocytes 0.9 10^3/uL (1.2-3.4); Absolute Monocytes 0.6 10^3/uL (0.1-0.6); Absolute Neutrophils 2.3 10^3/uL (1.4-6.5); Hematocrit 24.7 % (39.0-52.0); Hemoglobin 8.4 g/dL (13.0-18.0); Mean Corpuscular Hgb 33.2 pg (27.0-31.0); Mean Corpuscular Volume 97.6 fL (80.0-94.0); Mean Platelet Volume 10.4 fL (7.4-10.4); Nucleated Red Blood Cells % 0 % (-); Platelet Count 196 10^3/uL (130-400); Red Blood Cell Count 2.53 10^6/uL (4.70-6.10); Red Cell Dist. Width 11.9 % (11.5-14.5)
[2025-01-04] MEDS: PROTONIX 40 MG PO (08:17)
[2025-01-04] MEDS: MIRALAX 17 GRAMS PO (08:17)
[2025-01-04] MEDS: METAMUCIL, KONSYL PO ×2 (08:17→09:09)
[2025-01-04] MEDS: NORVASC 2.5 MG PO (08:18)
[2025-01-04 08:19] LABS: INR 1.95; PT 22.4 Sec (11.4-14.6)
[2025-01-04] MEDS: TEGRETOL XR (EXTENDED RELEASE) 400 MG PO ×2 (08:19→20:41)
[2025-01-04] MEDS: VIMPAT 200 MG PO ×2 (08:19→20:41)
[2025-01-04] MEDS: VITAMIN B-12 1000 MCG PO (08:19)
[2025-01-04] MEDS: LONITEN 10 MG PO ×2 (08:20→20:41)
[2025-01-04] MEDS: KEPPRA 1750 MG IV ×2 (08:35→20:41)
[2025-01-04 08:42] LABS: ALT (SGPT) 12 U/L (0-50); AST (SGOT) 16 U/L (17-59); Albumin 3.1 g/dl (3.5-5.0); Alkaline Phosphatase 47 U/L (38-126); Blood Urea Nitrogen 21 mg/dl (9-20); Calcium 8.6 mg/dl (8.4-10.2); Carbon Dioxide 29 mmol/L (22-30); Chloride 106 mmol/L (98-107); Estimated Creatinine Clearance 62 ml/min; Glucose 102 mg/dl (70-99); Potassium 4.5 mmol/L (3.5-5.1); Sodium 137 mmol/L (135-145); Total Bilirubin 0.3 mg/dl (0.2-1.3); Total Protein 6.9 g/dl (6.3-8.2); eGFR > 60.00
--- NOTE | 2025-01-04 12:02 | W.PN.HOSP.TC ---
Today's Communication/Plan
-
Assessment / Plan
Assessment / Plan
General: No Apparent Distress, Comfortable
HEENT: NormoCephalic, Moist mucous membranes, Atraumatic
Respiratory: Clear and Non Labored Respirations
Cardiac: S1/S2 and Regular Rhythm; No Rub or Gallop
GI: Soft, Non Tender, Non Distended and Normal Bowel Sounds
Musculoskeletal: No Edema, no deformity
: No Bowden
Neuro: Awake and alert, Nonfocal/grossly intact
Psych: Calm and cooperative
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 POC EEG showed high burden
seizure activity, admitted for status epilepticus, improved, neurologist provided recommendations; as per his conversation with bedside - patient back to baseline, midazolam spray recommended to prevent worsening seizures as per Neurologist. No
additional neurologic mgmt. Discussed in details with STR vs home PT - she would like to take patient home.
A/P:
#Acute metabolic encephalopathy:
- 2/2 status epilepticus with postictal state, now resolved
- Appears to be at baseline mental status currently, yesterday had some periods of lethargy and nausea which have now resolved, no hypercarbia or hyperammonemia
- Initially planned for discharge 12/29 however became progressively somnolent with some concern for recurrent seizure activity, restarted on Vimpat and Keppra inpatient
- Continuing antiepileptic regimen with carbamazepine 400 mg p.o. twice daily, cenobamate 200 mg p.o. at night, lacosamide 200 mg p.o. twice daily, and levetiracetam 1750 mg p.o. twice daily
- S/p lumbar puncture 01/01, results show elevated CSF protein, no evidence of meningitis/encephalitis
- Neurology following, started on IVIG for 5 days (today is day 10/02, last day 01/06/2025)
- Seizure precautions
#Cough
-with PMHX of aspiration pneumonia and leukocytosis
-Chest XR without new signs of pneumonia
-leukocytosis resolved- most likely seizure related
-Follow off Abx
#Afib, unspecified
#Supratherapeutic INR initially of 3.3
- Restarted warfarin with INR goal 2-3
- Currently bridging with weight-based Lovenox now that INR is fallen below 2.0 and he may potentially be hypercoagulable while on IVIG
#chronic anemia
Hgb around 9.0-10 as per chart review
Hemoglobin dropped to 8.4 on labs today, no evidence of active bleeding, will monitor
#Chronic HFmrEF
#Essential HTN
#CKD stage II/III
#Anemia of chronic disease
#GERD
cont home meds
#Hx Right Upper Lobe Adenocarcinoma s/p Lobectomy
w/u for paraneoplastic syndrome
DVT ppx warfarin
full code
I have spent at least 40 minutes reviewing chart, test results, communication with consultants, family and providing direct patient care
Anticipated Discharge: > 48 hours
Subjective/Interval History
-
Date of Service: January 04, 2025
Patient was seen and examined at bedside this morning. Feeling well compared to yesterday appears to be back to his baseline mental status.
Objective Data
-
Labs:
Laboratory Results
01/04/25
07:56
WBC 4.0 L
Hgb 8.4 L
Hct 24.7 L
Plt Count 196 D
PT 22.4 H
INR 1.95
Sodium 137
Potassium 4.5
Chloride 106
Carbon Dioxide 29
BUN 21 H
Creatinine 0.9
Glucose 102 H
Calcium 8.6
Total Bilirubin 0.3
AST 16 L
ALT 12
Alkaline Phosphatase 47
Vital Signs:
Vital Signs
Temp Pulse Resp BP Pulse Ox
97.9 F 65 16 144/65 99
01/04/25 10:51 01/04/25 10:51 01/04/25 10:51 01/04/25 10:51 01/04/25 10:51
I&O
01/03/25 01/04/25 01/05/25
06:59 06:59 06:59
Intake Total 720 / 720
Output Total 450 / 450 325 / 325
Balance -450 / -450 395 / 395
Review of Systems
-
History Source: Patient
All other systems: Reviewed and negative
Physical Exam
-
General: No Apparent Distress
[2025-01-04] MEDS: GAMMAGARD 300 IV (15:01)
[2025-01-04] MEDS: BENADRYL 25 MG PO (15:17)
[2025-01-04] MEDS: TYLENOL 650 MG PO (15:17)
[2025-01-04] MEDS: NON-FORMULARY ITEM 200 MG PO (17:16)
[2025-01-04] MEDS: FLOMAX 0.4 MG PO (17:17)
[2025-01-04] MEDS: LOVENOX 40 MG SC (17:17)
--- NOTE | 2025-01-04 21:57 | PTCARENOTE ---
patient was offered oral and bodily hygiene, however, it was patient's preference to do it in the morning. Patient also said that he completed hygiene earlier in the afternoon and did not want to do it again tonight.
[2025-01-05] VITALS (19 sets, daily range): BP systolic 118–172; BP diastolic 47–100; BMI 21.7
[2025-01-05] MEDS: ATIVAN 1 MG IV (01:43)
--- NOTE | 2025-01-05 01:53 | PTCARENOTE ---
Pt hit call urban around 01:35 and complained to RN about feeling nauseas. While in pt room RN observed pt eyes drifting upward toward ceiling, and pt started mumbling his words making it difficult to understand. At this time RN knew pt was having a
seizure episode. RN administered Ativan 1mg IV to patient and vitals were obtained w/ (BP 159/76, HR 65 and O2 sat 96% RA). Shortly after IV Ativan administered pt became relaxed, but still seemed to be seizing. RN remained w/ patient for quite some
time making sure pt was safe. 02:01 pt resting comfortably w/o appearing tense.
--- NOTE | 2025-01-05 03:19 | W.PN.UPDATE ---
Update Note
Progress Note Update
Nursing reports at 0200 approx patient found staring up at the ceiling with mild tremors and mumbling. Ativan 1 mg IV given. Has been sleepy but arousable since and is able to follow direction.
[2025-01-05] MEDS: LONITEN 10 MG PO ×2 (07:36→20:26)
[2025-01-05] MEDS: PROTONIX 40 MG PO (07:36)
[2025-01-05] MEDS: METAMUCIL, KONSYL 1 PACKET PO (07:36)
[2025-01-05] MEDS: NORVASC 2.5 MG PO (07:36)
[2025-01-05] MEDS: VITAMIN B-12 1000 MCG PO (07:36)
[2025-01-05] MEDS: VIMPAT 200 MG PO ×2 (07:36→20:27)
[2025-01-05] MEDS: TEGRETOL XR (EXTENDED RELEASE) 400 MG PO ×2 (07:36→20:26)
[2025-01-05] MEDS: KEPPRA 1750 MG IV ×2 (07:37→20:27)
[2025-01-05] MEDS: MIRALAX 17 GRAMS PO (07:37)
[2025-01-05 08:11] LABS: % Immature Granulocytes 0.6 % (0-0.5); % Lymphocytes 31.5 % (20.5-51.1); % Monocytes 18.8 % (1.7-9.3); % Neutrophils 47.1 % (42.2-75.2); Absolute Monocytes 0.6 10^3/uL (0.1-0.6); Absolute Neutrophils 1.5 10^3/uL (1.4-6.5); Hematocrit 25.9 % (39.0-52.0); Hemoglobin 8.9 g/dL (13.0-18.0); Mean Corp Hgb Conc. 34.4 g/dL (33.0-37.0); Mean Corpuscular Hgb 33.6 pg (27.0-31.0); Mean Corpuscular Volume 97.7 fL (80.0-94.0); Mean Platelet Volume 10.3 fL (7.4-10.4); Nucleated Red Blood Cells % 0 % (-); Platelet Count 198 10^3/uL (130-400); Red Blood Cell Count 2.65 10^6/uL (4.70-6.10); Red Cell Dist. Width 12.1 % (11.5-14.5); White Blood Cell Count 3.1 10^3/uL (4.8-10.8)
[2025-01-05 08:21] LABS: PT 24.6 Sec (11.4-14.6)
[2025-01-05 08:27] LABS: Blood Urea Nitrogen 23 mg/dl (9-20); Calcium 8.6 mg/dl (8.4-10.2); Carbon Dioxide 27 mmol/L (22-30); Chloride 106 mmol/L (98-107); Estimated Creatinine Clearance 62 ml/min; Glucose 107 mg/dl (70-99); Potassium 4.6 mmol/L (3.5-5.1); Sodium 137 mmol/L (135-145); eGFR > 60.00
--- NOTE | 2025-01-05 10:56 | W.PN.HOSP.TC ---
Today's Communication/Plan
-
Assessment / Plan
Assessment / Plan
General: No Apparent Distress, Comfortable
HEENT: NormoCephalic, Moist mucous membranes, Atraumatic
Respiratory: Clear and Non Labored Respirations
Cardiac: S1/S2 and Regular Rhythm; No Rub or Gallop
GI: Soft, Non Tender, Non Distended and Normal Bowel Sounds
Musculoskeletal: No Edema, no deformity
: No Bowden
Neuro: Awake and alert, mild dysarthria, nonfocal/grossly intact
Psych: Calm and cooperative
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 POC EEG showed high burden
seizure activity, admitted for status epilepticus, improved, neurologist provided recommendations; as per his conversation with bedside - patient back to baseline, midazolam spray recommended to prevent worsening seizures as per Neurologist. No
additional neurologic mgmt. Discussed in details with STR vs home PT - she would like to take patient home.
A/P:
#Acute metabolic encephalopathy:
- 2/2 status epilepticus with postictal state, now resolved
- Mental status waxing and waning past few days, no evidence of recurrent seizures
- Initially planned for discharge 12/29 however became progressively somnolent with some concern for recurrent seizure activity, restarted on Vimpat and Keppra inpatient
- Continuing antiepileptic regimen with carbamazepine 400 mg p.o. twice daily, cenobamate 200 mg p.o. at night, lacosamide 200 mg p.o. twice daily, and levetiracetam 1750 mg p.o. twice daily
- S/p lumbar puncture 01/01, results show elevated CSF protein, no evidence of meningitis/encephalitis
- Neurology following, started on IVIG for 5 days (today is day 11/02, last day 01/06/2025)
- Seizure precautions
- Plan for discharge to home (likely 01/07) after completing IVIG course if otherwise stable
#Cough
-with PMHX of aspiration pneumonia and leukocytosis
-Chest XR without new signs of pneumonia
-leukocytosis resolved- most likely seizure related
-Follow off Abx
#Afib, unspecified
#Supratherapeutic INR initially of 3.3
- Restarted warfarin with INR goal 2-3
- Holding Lovenox now that INR is back above 2.0, although we will continue to monitoring INR daily for now as he may be hypercoagulable while on IVIG, can restart Lovenox bridging as needed
#chronic anemia
Hgb around 9.0-10 as per chart review
Hemoglobin 8.9 on labs today, no evidence of active bleeding, will monitor
#Chronic HFmrEF
#Essential HTN
#CKD stage II/III
#Anemia of chronic disease
#GERD
cont home meds
#Hx Right Upper Lobe Adenocarcinoma s/p Lobectomy
w/u for paraneoplastic syndrome
DVT ppx warfarin
full code
I have spent at least 40 minutes reviewing chart, test results, communication with consultants, family and providing direct patient care
Anticipated Discharge: 24 - 48 hours
Subjective/Interval History
-
Date of Service: January 05, 2025
Patient was seen and examined at bedside this morning. He had an episode of nausea and confusion overnight with mild tremors and mumbling. He was given a dose of IV Ativan. Remains hemodynamically stable. Awake and alert this morning but still
mumbling, does not appear to be at his baseline mental status.
Objective Data
-
Labs:
Laboratory Results
01/05/25
08:00
WBC 3.1 L
Hgb 8.9 L
Hct 25.9 L
Plt Count 198
PT 24.6 H
INR 2.20
Sodium 137
Potassium 4.6
Chloride 106
Carbon Dioxide 27
BUN 23 H
Creatinine 0.9
Glucose 107 H
Calcium 8.6
Vital Signs:
Vital Signs
Temp Pulse Resp BP Pulse Ox
98.6 F 64 17 125/56 97
01/05/25 07:12 01/05/25 07:12 01/05/25 07:12 01/05/25 07:12 01/05/25 07:30
I&O
01/04/25 01/05/25 01/06/25
06:59 06:59 06:59
Intake Total 720 / 720 200 / 200
Output Total 325 / 325 750 / 750
Balance 395 / 395 -550 / -550
Review of Systems
-
History Source: Patient
All other systems: Reviewed and negative
Physical Exam
-
General: No Apparent Distress
[2025-01-05] MEDS: GAMMAGARD 300 IV (14:03)
--- NOTE | 2025-01-05 14:23 | CM ---
CM following for discharge planning. Pt doing well, home health recommended by therapies. Pt known to [facility] and will resume services after discharge.
[2025-01-05] MEDS: BENADRYL 25 MG PO (14:25)
[2025-01-05 15:55] LABS: Paraneoplastic Ab IgG, CSF None Detected (None Detected)
[2025-01-05] MEDS: ZOFRAN 4 MG IV (16:25)
[2025-01-05] MEDS: VASOTEC 0.625 MG IV (16:44)
[2025-01-05] MEDS: FLOMAX 0.4 MG PO (17:24)
[2025-01-05] MEDS: NON-FORMULARY ITEM 200 MG PO (17:24)
--- NOTE | 2025-01-05 18:26 | W.PN.NEURO.1 ---
Today's Communication / Plan
-
complete IVIG tomorrow and discharge Monday morning after 's thyroid ultrasound
Neuro Assessment/Plan
Assessment
IMPRESSIONS
Abrupt change in mental status followed by testing by [employer] device demonstrating status epilepticus, remediated by medication in the ED with gradual worsening again by device measurement
Prior medications have included: Lacosamide, Levetiracetam, Carbamazepine, Cenobamate
Plan
RECOMMENDATIONS:
outpatient Midazolam nasal spray in case of new symptoms
eventual outpatient advancement of Cenobamate from 200 mg to 300 mg, outpatient RX sent 25 mg increment increases weekly until 300 mg
continue Levetiracetam 1750 BID, carbamazepine 400 BID, Vimpat 200 BID
will discontinue Lacosamide prior to discharge
no clear evidence of need for neuroimaging or additional EEG monitoring due to presumed poor control
we discussed that with his seeming to worsen in the past year with apparent increasing seizure frequency and cognitive decline, and this present episode of status epilepticus being apparently unprovoked, we did LP, showing WBC 2, RBC 1, protein 96.
paraneoplastic panel pending
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
trial of IVIG x5 days, premedicate tylenol/benadryl
Subjective/Objective
Subjective Data
Date of Service: January 05, 2025
overnight episode of staring at ceiling, mumbling, given ativan 1 mg
reports patient speech maybe a little slurred today
during IVIG this afternoon transient episode of HTN, nausea
Objective Data
Vital Signs
Temp Pulse Resp BP Pulse Ox
36.5 C 77 19 145/63 92
01/05/25 15:00 01/05/25 18:12 01/05/25 15:00 01/05/25 18:12 01/05/25 15:00
Lab Results
01/05/25 08:00
01/05/25 08:00
PT 24.6 Sec (11.4-14.6) H 01/05/25 08:00
INR 2.20 01/05/25 08:00
Sodium 137 mmol/L (135-145) 01/05/25 08:00
Potassium 4.6 mmol/L (3.5-5.1) 01/05/25 08:00
BUN 23 mg/dl (9-20) H 01/05/25 08:00
Glucose 107 mg/dl (70-99) H 01/05/25 08:00
Calcium 8.6 mg/dl (8.4-10.2) 01/05/25 08:00
Phosphorus 4.0 mg/dl (2.5-4.5) 12/29/24 03:34
Patient Allergies
hydralazine Allergy (Verified 12/27/24 14:52)
Unknown
pollen extracts Allergy (Verified 12/27/24 14:52)
nasal symptoms
Physical Exam
-
AAOx2, speech clear,
VFF, EOMI, face symmetric
[2025-01-06] VITALS (7 sets, daily range): BP systolic 123–183; BP diastolic 53–68; PULSE 64–65; O2SAT 97–98; BMI 22.0
--- NOTE | 2025-01-06 05:57 | W.PN.HOSP.TC ---
Today's Communication/Plan
-
Cont anti-sz meds
PT/OT
Possible discharge tomorrow if remains stable/cont to improve
Assessment / Plan
Assessment / Plan
Physical Exam
General: No Apparent Distress, Comfortable
HEENT: NormoCephalic, Moist mucous membranes, Atraumatic
Respiratory: Clear and Non Labored Respirations
Cardiac: S1/S2 and Regular Rhythm; No Rub or Gallop
GI: Soft, Non Tender, Non Distended and Normal Bowel Sounds
Musculoskeletal: No Edema, no deformity
Neuro: AOx3 conversant coherent
Psych: Calm and cooperative
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 POC EEG showed high burden
seizure activity, admitted for status epilepticus, improved, neurologist provided recommendations; as per his conversation with bedside - patient back to baseline, midazolam spray recommended to prevent worsening seizures as per Neurologist. No
additional neurologic mgmt. Discussed in details with STR vs home PT - she would like to take patient home.
A/P:
#Acute metabolic encephalopathy:
- 2/2 status epilepticus with postictal state, now resolved
- Mental status waxing and waning past few days, no evidence of recurrent seizures
- Initially planned for discharge 12/29 however became progressively somnolent with some concern for recurrent seizure activity, restarted on Vimpat and Keppra inpatient
- Continuing antiepileptic regimen with carbamazepine 400 mg p.o. twice daily, cenobamate 200 mg p.o. at night, lacosamide 200 mg p.o. twice daily, and levetiracetam 1750 mg p.o. twice daily
- S/p lumbar puncture 01/01, results show elevated CSF protein, no evidence of meningitis/encephalitis
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
- Seizure precautions
- Possible discharge tomorrow if remains stable/cont to improve
#Cough
-with PMHX of aspiration pneumonia and leukocytosis
-Chest XR without new signs of pneumonia
-leukocytosis resolved- most likely seizure related
-Follow off Abx
#Afib, unspecified
#Supratherapeutic INR since resolved
#INR however subtherapeutic at this time
Bridging therapeutic Lovenox with warfarin
Follow INR
#chronic anemia
monitor H&H
relatively stable, no need for transfusion noted
#Chronic HFmrEF
#Essential HTN
#CKD stage II/III
#Anemia of chronic disease
#GERD
cont home meds
#Hx Right Upper Lobe Adenocarcinoma s/p Lobectomy
w/u for paraneoplastic syndrome
DVT ppx warfarin
full code
discussed with patient and patient's Anne
I have spent at least 40 minutes reviewing chart, test results, communication with consultants, family and providing direct patient care
Anticipated Discharge: Within 24 hours
Subjective/Interval History
-
Date of Service: January 06, 2025
AOx3 conversant coherent. Overall reports feeling well. Anne present during evaluation.
Objective Data
-
Labs:
Laboratory Results
01/06/25 01/06/25
06:00 08:19
WBC Pending
Hgb Pending
Hct Pending
Plt Count Pending
PT Pending
INR Pending
Sodium Pending
Potassium Pending
Chloride Pending
Carbon Dioxide Pending
BUN Pending
Creatinine Pending
Glucose Pending
Calcium Pending
Vital Signs:
Vital Signs
Temp Pulse Resp BP Pulse Ox
98.6 F 60 18 123/53 96
01/06/25 03:00 01/06/25 03:00 01/06/25 03:00 01/06/25 03:00 01/06/25 03:00
I&O
01/04/25 01/05/25 01/06/25
06:59 06:59 06:59
Intake Total 720 / 720 200 / 200 120 / 120
Output Total 325 / 325 750 / 750
Balance 395 / 395 -550 / -550 120 / 120
[2025-01-06] MEDS: PROTONIX 40 MG PO (07:44)
[2025-01-06] MEDS: VIMPAT 200 MG PO ×2 (07:44→20:03)
[2025-01-06] MEDS: METAMUCIL, KONSYL 1 PACKET PO (07:45)
[2025-01-06] MEDS: MIRALAX 17 GRAMS PO (07:45)
[2025-01-06] MEDS: VITAMIN B-12 1000 MCG PO (07:46)
[2025-01-06] MEDS: NORVASC 2.5 MG PO (07:46)
[2025-01-06] MEDS: KEPPRA 1750 MG IV ×2 (07:46→20:25)
[2025-01-06] MEDS: LONITEN 10 MG PO ×2 (07:46→20:04)
[2025-01-06] MEDS: TEGRETOL XR (EXTENDED RELEASE) 400 MG PO ×2 (07:46→20:04)
[2025-01-06 08:22] LABS: % Basophils 0.7 % (0-2); % Eosinophils 0.2 % (0-6); % Immature Granulocytes 0.5 % (0-0.5); % Lymphocytes 20.1 % (20.5-51.1); % Monocytes 16.2 % (1.7-9.3); % Neutrophils 62.3 % (42.2-75.2); Absolute Lymphocytes 0.9 10^3/uL (1.2-3.4); Absolute Monocytes 0.7 10^3/uL (0.1-0.6); Absolute Neutrophils 2.7 10^3/uL (1.4-6.5); Hematocrit 25.1 % (39.0-52.0); Hemoglobin 8.7 g/dL (13.0-18.0); Mean Corp Hgb Conc. 34.7 g/dL (33.0-37.0); Mean Corpuscular Hgb 33.9 pg (27.0-31.0); Mean Corpuscular Volume 97.7 fL (80.0-94.0); Mean Platelet Volume 10.2 fL (7.4-10.4); Nucleated Red Blood Cells % 0 % (-); Platelet Count 177 10^3/uL (130-400); Red Blood Cell Count 2.57 10^6/uL (4.70-6.10); Red Cell Dist. Width 12.2 % (11.5-14.5); White Blood Cell Count 4.3 10^3/uL (4.8-10.8)
[2025-01-06 08:33] LABS: INR 1.58; PT 19.1 Sec (11.4-14.6)
[2025-01-06 08:57] LABS: Blood Urea Nitrogen 20 mg/dl (9-20); Calcium 8.7 mg/dl (8.4-10.2); Carbon Dioxide 27 mmol/L (22-30); Chloride 106 mmol/L (98-107); Estimated Creatinine Clearance 62 ml/min; Glucose 104 mg/dl (70-99); Potassium 4.5 mmol/L (3.5-5.1); Sodium 136 mmol/L (135-145); eGFR > 60.00
--- NOTE | 2025-01-06 10:35 | W.PN.NEURO.1 ---
Documented by User: Thelma Wilkerson NP 01/06/25 17:59
Neuro Assessment/Plan
Assessment
IMPRESSIONS
Abrupt change in mental status followed by testing by Ceribell device demonstrating status epilepticus, remediated by medication in the ED with gradual worsening again by device measurement
Prior medications have included: Lacosamide, Levetiracetam, Carbamazepine, Cenobamate
Plan
RECOMMENDATIONS:
outpatient Midazolam nasal spray in case of new symptoms
eventual outpatient advancement of Cenobamate from 200 mg to 300 mg, outpatient RX sent 25 mg increment increases weekly until 300 mg
continue Levetiracetam 1750 BID, carbamazepine 400 BID, Vimpat 200 BID
will discontinue Lacosamide prior to discharge
no clear evidence of need for neuroimaging or additional EEG monitoring due to presumed poor control
we discussed that with his seeming to worsen in the past year with apparent increasing seizure frequency and cognitive decline, and this present episode of status epilepticus being apparently unprovoked, we did LP, showing WBC 2, RBC 1, protein 96.
paraneoplastic panel pending
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
trial of IVIG x5 days, premedicate tylenol/benadryl
Subjective/Objective
Subjective Data
Date of Service: January 06, 2025
Patient denies any more events but states he is sleepy. Speech somewhat improved and less garbled.
Objective Data
Vital Signs
Temp Pulse Resp BP Pulse Ox
97.8 F 60 20 123/64 97
01/06/25 07:51 01/06/25 07:51 01/06/25 07:51 01/06/25 07:51 01/06/25 07:51
Lab Results
01/06/25 08:05
01/06/25 08:05
PT 19.1 Sec (11.4-14.6) H 01/06/25 08:05
INR 1.58 01/06/25 08:05
Sodium 136 mmol/L (135-145) 01/06/25 08:05
Potassium 4.5 mmol/L (3.5-5.1) 01/06/25 08:05
BUN 20 mg/dl (9-20) 01/06/25 08:05
Glucose 104 mg/dl (70-99) H 01/06/25 08:05
Calcium 8.7 mg/dl (8.4-10.2) 01/06/25 08:05
Phosphorus 4.0 mg/dl (2.5-4.5) 12/29/24 03:34
Patient Allergies
hydralazine Allergy (Verified 12/27/24 14:52)
Unknown
pollen extracts Allergy (Verified 12/27/24 14:52)
nasal symptoms
Review of Systems
-
Unable to obtain full review of systems at this time due to: Acuity
Physical Exam
-
General: Comfortable and Appears Stated Age
Neck: Full Range of Motion
Respiratory: No Dyspnea
Cardiac: No JVD
GI: Non-distended
Skin: Unremarkable
Extremities: No Clubbing, No Cyanosis and No Edema
Psych: Confused
Extended Neurological Exam
Mood & Affect: Mood Unremarkable
Attention Span & Concentration: Awake, Alert and Interactive
Memory: Unable to Recall Personal History, Vague and Incomplete Historian

Documented by User: Edward Edouard MD 01/06/25 17:48
Today's Communication / Plan
-
outpatient Midazolam nasal spray in case of new symptoms
outpatient advancement of Cenobamate from 200 mg to 400 mg, outpatient RX sent 25 mg increment increases weekly goal attained
continue Levetiracetam 1750 BID, carbamazepine 400 BID, Vimpat 200 BID
Neuro Assessment/Plan
Assessment
LP, showing WBC 2, RBC 1, protein 96. paraneoplastic panel pending
Findings do not support autoimmune cause of worsening epilepsy
IMPRESSIONS
Abrupt change in mental status followed by testing by Ceribell device demonstrating status epilepticus, remediated by medication in the ED with gradual worsening again by device measurement
Prior medications have included: Lacosamide, Levetiracetam, Carbamazepine, Cenobamate
Completing trial of IVIG x5 days
Plan
RECOMMENDATIONS:
outpatient Midazolam nasal spray in case of new symptoms
outpatient advancement of Cenobamate from 200 mg to 400 mg, outpatient RX sent 25 mg increment increases weekly goal attained
continue Levetiracetam 1750 BID, carbamazepine 400 BID, Vimpat 200 BID
no clear evidence of need for neuroimaging or additional EEG monitoring due to presumed poor control
Will follow peripherally
[2025-01-06] MEDS: LOVENOX 70 MG SC ×2 (11:42→22:03)
[2025-01-06] MEDS: COUMADIN 5 MG PO (17:22)
[2025-01-06] MEDS: FLOMAX 0.4 MG PO (17:22)
[2025-01-06] MEDS: NON-FORMULARY ITEM 200 MG PO (17:24)
[2025-01-06] MEDS: ZOFRAN 4 MG IV (20:08)
[2025-01-07 03:00] VITALS: BP 145/66
[2025-01-07 06:00] VITALS: BMI 21.7
--- NOTE | 2025-01-07 06:32 | W.PN.HOSP.TC ---
Today's Communication/Plan
-
cont monitoring INR
cont Lovenox Warfarin Bridge
Assessment / Plan
Assessment / Plan
Physical Exam
General: No Apparent Distress, Comfortable
HEENT: NormoCephalic, Moist mucous membranes, Atraumatic
Respiratory: Clear and Non Labored Respirations
Cardiac: S1/S2 and Regular Rhythm; No Rub or Gallop
GI: Soft, Non Tender, Non Distended and Normal Bowel Sounds
Musculoskeletal: No Edema, no deformity
Neuro: AOx3 conversant coherent
Psych: Calm and cooperative
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 POC EEG showed high burden
seizure activity, admitted for status epilepticus, improved, neurologist provided recommendations; as per his conversation with bedside - patient back to baseline, midazolam spray recommended to prevent worsening seizures as per Neurologist. No
additional neurologic mgmt. Discussed in details with STR vs home PT - she would like to take patient home.
A/P:
#Acute metabolic encephalopathy:
- 2/2 status epilepticus with postictal state, now resolved
- Mental status waxing and waning past few days, no evidence of recurrent seizures
- Initially planned for discharge 12/29 however became progressively somnolent with some concern for recurrent seizure activity, restarted on Vimpat and Keppra inpatient
- Continuing antiepileptic regimen with carbamazepine 400 mg p.o. twice daily, cenobamate 200 mg p.o. at night, lacosamide 200 mg p.o. twice daily, and levetiracetam 1750 mg p.o. twice daily
- S/p lumbar puncture 01/01, results show elevated CSF protein, no evidence of meningitis/encephalitis
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
- Seizure precautions
- Possible discharge tomorrow if remains stable/cont to improve
#Cough
-with PMHX of aspiration pneumonia and leukocytosis
-Chest XR without new signs of pneumonia
-leukocytosis resolved- most likely seizure related
-Follow off Abx
#Afib, unspecified
#Supratherapeutic INR since resolved
#INR however subtherapeutic at this time
Bridging therapeutic Lovenox with warfarin
Follow INR
#chronic anemia
monitor H&H
relatively stable, no need for transfusion noted
#Chronic HFmrEF
#Essential HTN
#CKD stage II/III
#Anemia of chronic disease
#GERD
cont home meds
#Hx Right Upper Lobe Adenocarcinoma s/p Lobectomy
w/u for paraneoplastic syndrome
DVT ppx warfarin
full code
discussed with patient and patient's Anne
I have spent at least 40 minutes reviewing chart, test results, communication with consultants, family and providing direct patient care
Anticipated Discharge: Within 24 hours
Subjective/Interval History
-
Date of Service: January 07, 2025
No acute distress, appears comfortable. Constipation relieved with suppository. present during evaluation.
Objective Data
-
Labs:
Laboratory Results
01/07/25 01/07/25
06:00 08:19
WBC Pending
Hgb Pending
Hct Pending
Plt Count Pending
PT Pending
INR Pending
Vital Signs:
Vital Signs
Temp Pulse Resp BP Pulse Ox
98.2 F 65 18 145/66 96
01/07/25 03:00 01/07/25 03:00 01/07/25 03:00 01/07/25 03:00 01/07/25 03:00
I&O
01/05/25 01/06/25 01/07/25
06:59 06:59 06:59
Intake Total 200 / 200 360 / 360 900 / 900
Output Total 750 / 750 250 / 250 950 / 950
Balance -550 / -550 110 / 110 -50 / -50
[2025-01-07 07:00] VITALS: BP 132/61
[2025-01-07 08:00] LABS: Hematocrit 25.6 % (39.0-52.0); Hemoglobin 8.8 g/dL (13.0-18.0); Mean Corp Hgb Conc. 34.4 g/dL (33.0-37.0); Mean Corpuscular Hgb 33.3 pg (27.0-31.0); Mean Platelet Volume 10.3 fL (7.4-10.4); Platelet Count 167 10^3/uL (130-400); Red Blood Cell Count 2.64 10^6/uL (4.70-6.10); Red Cell Dist. Width 12.1 % (11.5-14.5); White Blood Cell Count 3.4 10^3/uL (4.8-10.8)
[2025-01-07 08:03] LABS: INR 1.53; PT 18.6 Sec (11.4-14.6)
[2025-01-07] MEDS: NORVASC 2.5 MG PO (08:09)
[2025-01-07] MEDS: VITAMIN B-12 1000 MCG PO (08:09)
[2025-01-07] MEDS: VIMPAT 200 MG PO ×2 (08:09→19:33)
[2025-01-07] MEDS: MIRALAX 17 GRAMS PO (08:10)
[2025-01-07] MEDS: LONITEN 10 MG PO ×2 (08:10→19:32)
[2025-01-07] MEDS: TEGRETOL XR (EXTENDED RELEASE) 400 MG PO ×2 (08:10→19:33)
[2025-01-07] MEDS: PROTONIX 40 MG PO (08:10)
[2025-01-07] MEDS: METAMUCIL, KONSYL 1 PACKET PO (08:10)
[2025-01-07] MEDS: KEPPRA 1750 MG IV ×2 (08:11→19:33)
[2025-01-07 10:53] VITALS: BP 146/70
[2025-01-07] MEDS: DULCOLAX 10 MG RECTAL (11:54)
[2025-01-07] MEDS: LOVENOX 70 MG SC ×2 (11:55→22:11)
--- NOTE | 2025-01-07 12:04 | CM ---
Patient seen at bedside with
PT rec SNF vs. Home Health
Referral in [facility] for [facility] - accepted
states would rather discharge patient to home
resouces given to her regarding private cg
PLAN: SNF vs. home health when stable
[2025-01-07 15:00] VITALS: BP 157/74
[2025-01-07 16:41] VITALS: BP 186/78; PULSE 66
[2025-01-07] MEDS: FLOMAX 0.4 MG PO (17:11)
[2025-01-07] MEDS: COUMADIN 5 MG PO (17:11)
[2025-01-07] MEDS: ZOFRAN 4 MG IV (17:33)
[2025-01-07] MEDS: NON-FORMULARY ITEM 200 MG PO (17:33)
--- NOTE | 2025-01-07 20:48 | PTCARENOTE ---
Oral care was not performed on patient because they stated that it was their preference to brush their teeth in the morning.
[2025-01-07 23:00] VITALS: BP 127/53
[2025-01-08 03:00] VITALS: BP 140/60; BMI 19.6
[2025-01-08 06:29] LABS: PT 19.3 Sec (11.4-14.6)
[2025-01-08 07:00] VITALS: BP 148/62
[2025-01-08] MEDS: VITAMIN B-12 1000 MCG PO (08:10)
[2025-01-08] MEDS: METAMUCIL, KONSYL 1 PACKET PO (08:10)
[2025-01-08] MEDS: MIRALAX 17 GRAMS PO (08:10)
[2025-01-08] MEDS: TEGRETOL XR (EXTENDED RELEASE) 400 MG PO ×2 (08:10→20:55)
[2025-01-08] MEDS: NORVASC 2.5 MG PO (08:11)
[2025-01-08] MEDS: LONITEN 10 MG PO ×2 (08:11→21:00)
[2025-01-08] MEDS: PROTONIX 40 MG PO (08:11)
[2025-01-08] MEDS: KEPPRA 1750 MG IV ×2 (08:11→20:56)
[2025-01-08] MEDS: VIMPAT 200 MG PO ×2 (08:24→20:55)
[2025-01-08] MEDS: CATAPRES-TTS-2 0.2 MG TRANSDERM (08:32)
--- NOTE | 2025-01-08 09:38 | W.PN.HOSP.TC ---
Today's Communication/Plan
-
Cont Lovenox Warfarin Bridge
Assessment / Plan
Assessment / Plan
Physical Exam
General: No Apparent Distress, Comfortable
HEENT: NormoCephalic, Moist mucous membranes, Atraumatic
Respiratory: Clear and Non Labored Respirations
Cardiac: S1/S2 and Regular Rhythm; No Rub or Gallop
GI: Soft, Non Tender, Non Distended and Normal Bowel Sounds
Musculoskeletal: No Edema, no deformity
Neuro: AOx3 conversant coherent
Psych: Calm and cooperative
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 POC EEG showed high burden
seizure activity, admitted for status epilepticus, improved, neurologist provided recommendations; as per his conversation with bedside - patient back to baseline, midazolam spray recommended to prevent worsening seizures as per Neurologist. No
additional neurologic mgmt. Discussed in details with STR vs home PT - she would like to take patient home.
A/P:
#Acute metabolic encephalopathy:
- 2/2 status epilepticus with postictal state, now resolved
- Mental status waxing and waning past few days, no evidence of recurrent seizures
- Initially planned for discharge 12/29 however became progressively somnolent with some concern for recurrent seizure activity, restarted on Vimpat and Keppra inpatient
- Continuing antiepileptic regimen with carbamazepine 400 mg p.o. twice daily, cenobamate 200 mg p.o. at night, lacosamide 200 mg p.o. twice daily, and levetiracetam 1750 mg p.o. twice daily
- S/p lumbar puncture 01/01, results show elevated CSF protein, no evidence of meningitis/encephalitis
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
- Seizure precautions
- Possible discharge tomorrow if remains stable/cont to improve
#Cough
-with PMHX of aspiration pneumonia and leukocytosis
-Chest XR without new signs of pneumonia
-leukocytosis resolved- most likely seizure related
-Follow off Abx
#Afib, unspecified
#Supratherapeutic INR since resolved
#INR however subtherapeutic at this time
Bridging therapeutic Lovenox with warfarin
Follow INR, goal 2-3
#chronic anemia
monitor H&H
relatively stable, no need for transfusion noted
#Chronic HFmrEF
#Essential HTN
#CKD stage II/III
#Anemia of chronic disease
#GERD
cont home meds
#Hx Right Upper Lobe Adenocarcinoma s/p Lobectomy
w/u for paraneoplastic syndrome
DVT ppx Lovenox warfarin bridge
full code
discussed with patient and patient's Anne
I have spent at least 35 minutes reviewing chart, test results, communication with consultants, family and providing direct patient care
Anticipated Discharge: 24 - 48 hours
Subjective/Interval History
-
Date of Service: January 08, 2025
no acute distress, sitting up comfortably in bed. Overall reports feeling well.
Objective Data
-
Labs:
Laboratory Results
01/08/25
05:59
PT 19.3 H
INR 1.60
Vital Signs:
Vital Signs
Temp Pulse Resp BP Pulse Ox
97.4 F 57 16 148/62 93
01/08/25 07:00 01/08/25 08:32 01/08/25 07:00 01/08/25 08:32 01/08/25 07:00
I&O
01/07/25 01/08/25 01/09/25
06:59 06:59 06:59
Intake Total 900 / 900 580 / 580
Output Total 950 / 950 350 / 350
Balance -50 / -50 230 / 230
--- NOTE | 2025-01-08 10:17 | CM ---
Patient seen at bedside with
PT rec SNF vs Home Health
would like patient to go home with [facility]
she has private cg resources, states has equipment including hosp bed
[facility] Referral in [facility] & accepted
PLAN: home with [facility], when stable
[2025-01-08 11:00] VITALS: BP 127/52
[2025-01-08] MEDS: LOVENOX 70 MG SC ×2 (11:10→22:13)
[2025-01-08 12:41] VITALS: BP 137/64; PULSE 58; O2SAT 100
[2025-01-08] MEDS: ZOFRAN 4 MG IV ×2 (13:31→19:45)
[2025-01-08 15:00] VITALS: BP 157/65
[2025-01-08 15:31] VITALS: BMI 19.6
[2025-01-08 16:18] VITALS: BMI 21.5
[2025-01-08] MEDS: FLOMAX 0.4 MG PO (17:48)
[2025-01-08] MEDS: NON-FORMULARY ITEM 200 MG PO (17:49)
[2025-01-08] MEDS: COUMADIN 5 MG PO (17:49)
[2025-01-08 23:00] VITALS: BP 152/76
[2025-01-09 04:37] VITALS: BMI 19.6
--- NOTE | 2025-01-09 05:42 | PTCARENOTE ---
At change of shift, patient noted with moderate amount of emesis in basin, currently vomiting, and drowsy. Vomit appeared brown. Patient and dayshift nurse both shared that patient had 3 cups of chocolate ice cream for dinner-explaining the color of
emesis. PRN zofran given. See MAR. Hygiene provided to patient. Patient reported feeling better after zofran. Patient able to tolerate all HS PO medications. Patient slept throughout night. This morning, patient more alert and reports 'feeling
better.' Incontinent of urine throughout night. Hygiene performed. Call [facility] within reach. Plan of care ongoing.
[2025-01-09 07:00] VITALS: BP 141/69
[2025-01-09 07:30] LABS: INR 1.89; PT 22.2 Sec (11.4-14.6)
[2025-01-09] MEDS: NORVASC 2.5 MG PO (08:01)
[2025-01-09] MEDS: TEGRETOL XR (EXTENDED RELEASE) 400 MG PO ×2 (08:01→20:03)
[2025-01-09] MEDS: VITAMIN B-12 1000 MCG PO (08:01)
[2025-01-09] MEDS: LONITEN 10 MG PO (08:01)
[2025-01-09] MEDS: PROTONIX 40 MG PO (08:01)
[2025-01-09] MEDS: METAMUCIL, KONSYL 1 PACKET PO (08:01)
[2025-01-09] MEDS: MIRALAX 17 GRAMS PO (08:01)
[2025-01-09] MEDS: VIMPAT 200 MG PO ×2 (08:04→20:03)
[2025-01-09] MEDS: KEPPRA 1750 MG IV ×2 (08:05→20:05)
--- NOTE | 2025-01-09 08:10 | W.PN.HOSP.TC ---
Today's Communication/Plan
-
cont warfarin Lovenox bridge
sz medications as per Neuro
possible discharge tomorrow
Assessment / Plan
Assessment / Plan
Physical Exam
General: No Apparent Distress, Comfortable
HEENT: NormoCephalic, Moist mucous membranes, Atraumatic
Respiratory: Clear and Non Labored Respirations
Cardiac: S1/S2 and Regular Rhythm; No Rub or Gallop
GI: Soft, Non Tender, Non Distended and Normal Bowel Sounds
Musculoskeletal: No Edema, no deformity
Neuro: AOx3 conversant coherent
Psych: Calm and cooperative
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 POC EEG showed high burden
seizure activity, admitted for status epilepticus, improved, neurologist provided recommendations; as per his conversation with bedside - patient back to baseline, midazolam spray recommended to prevent worsening seizures as per Neurologist. No
additional neurologic mgmt. Discussed in details with STR vs home PT - she would like to take patient home.
A/P:
#Acute metabolic encephalopathy:
- 2/2 status epilepticus with postictal state, now resolved
- Mental status waxing and waning past few days, no evidence of recurrent seizures
- Initially planned for discharge 12/29 however became progressively somnolent with some concern for recurrent seizure activity, restarted on Vimpat and Keppra inpatient
- Continuing antiepileptic regimen with carbamazepine, cenobamate 200 mg p.o. at night, lacosamide 200 mg p.o. twice daily, and levetiracetam 1750 mg p.o. twice daily
- new sz episode 01/09 self-limited carbamazepine increased to 600 mg BID as per neuro
- S/p lumbar puncture 01/01, results show elevated CSF protein, no evidence of meningitis/encephalitis
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
- Seizure precautions
#Cough
-with PMHX of aspiration pneumonia and leukocytosis
-Chest XR without new signs of pneumonia
-leukocytosis resolved- most likely seizure related
-Follow off Abx
-cough since improved/resolved
#Afib, unspecified
#Supratherapeutic INR since resolved
#INR however subtherapeutic at this time
Bridging therapeutic Lovenox with warfarin
Follow INR, goal 2-3
#chronic anemia
monitor H&H
relatively stable, no need for transfusion noted
#Chronic HFmrEF
#Essential HTN
#CKD stage II/III
#Anemia of chronic disease
#GERD
cont home meds
#Hx Right Upper Lobe Adenocarcinoma s/p Lobectomy
DVT ppx Lovenox warfarin bridge
full code
discussed with patient and patient's Anne
I have spent at least 45 minutes reviewing chart, test results, communication with consultants, family and providing direct patient care
Anticipated Discharge: Within 24 hours
Subjective/Interval History
-
Date of Service: January 09, 2025
new onset sz this morning self limited. Patient post-ictal at time of evaluation. lethargic but arousable conversant coherent. VSS. Anne present during evaluation.
Objective Data
-
Labs:
Laboratory Results
01/09/25
06:45
PT 22.2 H
INR 1.89
Vital Signs:
Vital Signs
Temp Pulse Resp BP Pulse Ox
98.5 F 77 14 152/76 98
01/08/25 23:00 01/08/25 23:00 01/08/25 23:00 01/08/25 23:00 01/08/25 23:00
I&O
01/08/25 01/09/25 01/10/25
06:59 06:59 06:59
Intake Total 580 / 580 300 / 300
Output Total 350 / 350
Balance 230 / 230 300 / 300
[2025-01-09 08:13] VITALS: BP 141/69
[2025-01-09] MEDS: ZOFRAN 4 MG IV ×2 (09:51→23:54)
--- NOTE | 2025-01-09 10:56 | CM ---
Patient seen at bedside with
INR 1.89
continues to prefer home w/[facility]
PT rec SNF vs. Home Health
referral in [facility]
PLAN: home with [facility], when stable
[2025-01-09 10:58] VITALS: BP 195/77
[2025-01-09] MEDS: VASOTEC 0.625 MG IV (11:01)
[2025-01-09] MEDS: LOVENOX 70 MG SC (11:03)
--- NOTE | 2025-01-09 11:30 | W.PN.NEURO.1 ---
Today's Communication / Plan
-
Increase carbamazepine from 400 mg twice a day to dosing of 600 mg twice a day
Neuro Assessment/Plan
Assessment
LP, showing WBC 2, RBC 1, protein 96. paraneoplastic panel pending
Findings do not support autoimmune cause of worsening epilepsy
IMPRESSIONS
Abrupt change in mental status followed by testing by Ceribell device demonstrating status epilepticus, remediated by medication in the ED with gradual worsening again by device measurement
Prior medications have included: Lacosamide, Levetiracetam, Carbamazepine, Cenobamate
Completed trial of IVIG x5 days
Plan
RECOMMENDATIONS:
outpatient Midazolam nasal spray in case of new symptoms
outpatient advancement of Cenobamate from 200 mg to 400 mg, outpatient RX sent 25 mg increment increases weekly goal attained
Increase carbamazepine from 400 mg twice a day to dosing of 600 mg twice a day
continue Levetiracetam 1750 BID, Vimpat 200 BID
no clear evidence of need for neuroimaging or additional EEG monitoring due to presumed poor control
Will follow peripherally
Subjective/Objective
Subjective Data
Date of Service: January 09, 2025
Objective Data
Vital Signs
Temp Pulse Resp BP Pulse Ox
36.9 C 65 16 195/73 98
01/09/25 07:00 01/09/25 11:01 01/09/25 07:00 01/09/25 11:01 01/09/25 10:30
Lab Results
01/07/25 07:42
01/06/25 08:05
PT 22.2 Sec (11.4-14.6) H 01/09/25 06:45
INR 1.89 01/09/25 06:45
Sodium 136 mmol/L (135-145) 01/06/25 08:05
Potassium 4.5 mmol/L (3.5-5.1) 01/06/25 08:05
BUN 20 mg/dl (9-20) 01/06/25 08:05
Glucose 104 mg/dl (70-99) H 01/06/25 08:05
Calcium 8.7 mg/dl (8.4-10.2) 01/06/25 08:05
Phosphorus 4.0 mg/dl (2.5-4.5) 12/29/24 03:34
Patient Allergies
hydralazine Allergy (Verified 12/27/24 14:52)
Unknown
pollen extracts Allergy (Verified 12/27/24 14:52)
nasal symptoms
Data Reviewed
-
Labs: Report Reviewed
Reviewed with: Physician and Family
Old Records: Summarized
[2025-01-09 11:57] VITALS: BP 150/57
--- NOTE | 2025-01-09 12:12 | PTCARENOTE ---
Patient noted to be in a post ictal state this AM around 1050. Before this, he was alert, having conversation, able to take pills, eat and drink. Upon assessment, he was still oriented but speech garbled and slow. BP 195/77, HR 65, SpO2 97% on RA.
PRN Vasotec administered for HTN. MD notified, no new orders at this time, states they will ask neuro to re-evaluate. Upon reassessment, BP is 150/57, HR 70. Pt stable at this time. at bedside. Plan of care ongoing.
[2025-01-09 15:00] VITALS: BP 140/60
[2025-01-09] MEDS: NON-FORMULARY ITEM 200 MG PO (17:25)
[2025-01-09] MEDS: NON-FORMULARY ITEM 1 UNIT PO (17:25)
[2025-01-09] MEDS: FLOMAX 0.4 MG PO (17:29)
[2025-01-09] MEDS: COUMADIN 2 MG PO (17:29)
[2025-01-09] MEDS: TEGRETOL XR (EXTENDED RELEASE) 200 MG PO (20:03)
[2025-01-09] MEDS: LONITEN PO (20:03)
[2025-01-09] MEDS: LOVENOX 60 MG SC (22:33)
[2025-01-09 23:37] VITALS: BP 145/60
[2025-01-10 05:59] VITALS: BMI 19.4
[2025-01-10 06:42] LABS: Hematocrit 26.5 % (39.0-52.0); Hemoglobin 9.2 g/dL (13.0-18.0)
[2025-01-10 06:49] LABS: INR 2.33
[2025-01-10 07:00] VITALS: BP 109/76
--- NOTE | 2025-01-10 07:05 | W.PN.HOSP.TC ---
Today's Communication/Plan
-
cont warfarin, no need for further bridging with Lovenox at this time
antiemetic prn, Diet switched to 6 small meals a day
Blood pressure control
Assessment / Plan
Assessment / Plan
Physical Exam
General: No Apparent Distress, Comfortable
HEENT: NormoCephalic, Moist mucous membranes, Atraumatic
Respiratory: Clear and Non Labored Respirations
Cardiac: S1/S2 and Regular Rhythm; No Rub or Gallop
GI: Soft, Non Tender, Non Distended and Normal Bowel Sounds
Musculoskeletal: No Edema, no deformity
Neuro: AOx3 conversant coherent
Psych: Calm and cooperative
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 POC EEG showed high burden
seizure activity, admitted for status epilepticus, improved, neurologist provided recommendations; as per his conversation with bedside - patient back to baseline, midazolam spray recommended to prevent worsening seizures as per Neurologist. No
additional neurologic mgmt. Discussed in details with STR vs home PT - she would like to take patient home.
A/P:
#Acute metabolic encephalopathy:
- 2/2 status epilepticus with postictal state, now resolved
- Mental status waxing and waning past few days, no evidence of recurrent seizures
- Initially planned for discharge 12/29 however became progressively somnolent with some concern for recurrent seizure activity, restarted on Vimpat and Keppra inpatient
- Continuing antiepileptic regimen with carbamazepine, cenobamate 200 mg p.o. at night, lacosamide 200 mg p.o. twice daily, and levetiracetam 1750 mg p.o. twice daily
- new sz episode 01/09 self-limited carbamazepine increased to 600 mg BID as per neuro
- S/p lumbar puncture 01/01, results show elevated CSF protein, no evidence of meningitis/encephalitis
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
- Seizure precautions
- Patient nauseous suspect likely d/t recent increase in Carbamazepine, diet switched to 6 small meals a day, antiemetic prn
#Cough
-with PMHX of aspiration pneumonia and leukocytosis
-Chest XR without new signs of pneumonia
-leukocytosis resolved- most likely seizure related
-Follow off Abx
-cough since improved/resolved
#Afib, unspecified
#Supratherapeutic INR since resolved
#INR however subtherapeutic at this time
Bridging therapeutic Lovenox with warfarin, completed with Therapeutic INR, continuing with warfarin only
Follow INR, goal 2-3
#chronic anemia
monitor H&H
relatively stable, no need for transfusion noted
#Chronic HFmrEF
#Essential HTN
#CKD stage II/III
#Anemia of chronic disease
#GERD
cont home meds
#Hx Right Upper Lobe Adenocarcinoma s/p Lobectomy
DVT ppx Lovenox warfarin bridge
full code
discussed with patient and patient's Anne
I have spent at least 40 minutes reviewing chart, test results, communication with consultants, family and providing direct patient care
Anticipated Discharge: 24 - 48 hours
Subjective/Interval History
-
Date of Service: January 10, 2025
Nauseous likely due to recent increase Carbamazepine. Otherwise vital signs stable. No new seizure episodes since increase.
Objective Data
-
Labs:
Laboratory Results
01/10/25
06:30
Hgb 9.2 L
Hct 26.5 L
PT 26.0 H
INR 2.33
Vital Signs:
Vital Signs
Temp Pulse Resp BP Pulse Ox
98.5 F 59 16 145/60 95
01/09/25 23:37 01/09/25 23:37 01/09/25 23:37 01/09/25 23:37 01/09/25 23:37
I&O
01/09/25 01/10/25 01/11/25
06:59 06:59 06:59
Intake Total 300 / 300 120 / 120
Output Total 475 / 475
Balance 300 / 300 -355 / -355
[2025-01-10] MEDS: METAMUCIL, KONSYL 1 PACKET PO (08:33)
[2025-01-10] MEDS: MIRALAX 17 GRAMS PO (08:33)
[2025-01-10] MEDS: KEPPRA 1750 MG IV ×2 (08:34→21:44)
[2025-01-10] MEDS: LONITEN PO (08:35)
[2025-01-10] MEDS: VIMPAT 200 MG PO (08:35)
[2025-01-10] MEDS: TEGRETOL XR (EXTENDED RELEASE) 200 MG PO (08:36)
[2025-01-10] MEDS: PROTONIX 40 MG PO (08:36)
[2025-01-10] MEDS: TEGRETOL XR (EXTENDED RELEASE) 400 MG PO ×2 (08:36→21:48)
[2025-01-10] MEDS: NORVASC PO (08:36)
[2025-01-10] MEDS: VITAMIN B-12 1000 MCG PO (08:36)
[2025-01-10] MEDS: ZOFRAN 4 MG IV ×3 (08:45→20:16)
--- NOTE | 2025-01-10 10:19 | CM ---
Patient seen at bedside with
wants [facility] not SNF
cg resources previously given to
will need ambulance transport, 1 step to enter
PLAN: home with [facility] when stable
[2025-01-10 15:45] VITALS: BP 168/69
[2025-01-10] MEDS: NON-FORMULARY ITEM 200 MG PO (17:01)
[2025-01-10] MEDS: NON-FORMULARY ITEM 1 UNIT PO (17:02)
[2025-01-10] MEDS: COUMADIN 5 MG PO (17:03)
[2025-01-10] MEDS: FLOMAX 0.4 MG PO (17:04)
[2025-01-10 20:18] VITALS: BP 139/63
[2025-01-10] MEDS: TEGRETOL XR (EXTENDED RELEASE) PO (21:41)
--- NOTE | 2025-01-10 21:41 | PTCARENOTE ---
Pt refusing increased dose of tegretol and vimpat. Reports makes him vomit and sleep - 'they make me feel like I am going to '. Offered Zofran as premed, accepted zofran dose but continued to refuse seizure meds. TT to [facility] - offered patient extra
dose of zofran. This time patient more clear - declined extra zofran. States 'it's not just the nausea, I feel horrible with the new medication and increased dose of the old medication'. Explained rationale for increasing seizure medications and
risk of seizing. Pt stated 'I'd rather have a seizure than feel that way again'. Agreed to take 400mg dose of tegretol and keppra - refused 200mg dose of tegretol and vimpat. Pt pleasant and reasonable throughout conversation.
[2025-01-10] MEDS: VIMPAT PO (21:44)
[2025-01-10] MEDS: LONITEN 10 MG PO (21:44)
[2025-01-10 23:00] VITALS: BP 155/65
[2025-01-11 06:00] VITALS: BMI 19.1
[2025-01-11] MEDS: ANESTHETIC LOZENGE 1 LOZENGE PO (06:09)
--- NOTE | 2025-01-11 07:07 | W.PN.HOSP.TC ---
Today's Communication/Plan
-
zofran pre-medication added to help with compliance to seizure medications
cont warfarin, INR therapeutic
possible discharge [place] home with home services
Assessment / Plan
Assessment / Plan
Physical Exam
General: No Apparent Distress, Comfortable
HEENT: NormoCephalic, Moist mucous membranes, Atraumatic
Respiratory: Clear and Non Labored Respirations
Cardiac: S1/S2 and Regular Rhythm; No Rub or Gallop
GI: Soft, Non Tender, Non Distended and Normal Bowel Sounds
Musculoskeletal: No Edema, no deformity
Neuro: AOx3 conversant coherent
Psych: Calm and cooperative
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 POC EEG showed high burden
seizure activity, admitted for status epilepticus, improved, neurologist provided recommendations; as per his conversation with bedside - patient back to baseline, midazolam spray recommended to prevent worsening seizures as per Neurologist. No
additional neurologic mgmt. Discussed in details with STR vs home PT - she would like to take patient home.
A/P:
#Acute metabolic encephalopathy:
- 2/2 status epilepticus with postictal state, now resolved
- Mental status waxing and waning past few days, no evidence of recurrent seizures
- Initially planned for discharge 12/29 however became progressively somnolent with some concern for recurrent seizure activity, restarted on Vimpat and Keppra inpatient
- Continuing antiepileptic regimen with carbamazepine, cenobamate 200 mg p.o. at night, lacosamide 200 mg p.o. twice daily, and levetiracetam 1750 mg p.o. twice daily
- new sz episode 01/09 self-limited carbamazepine increased to 600 mg BID as per neuro
- S/p lumbar puncture 01/01, results show elevated CSF protein, no evidence of meningitis/encephalitis
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
- Seizure precautions
- Patient nauseous suspect likely d/t recent increase in Carbamazepine, diet switched to 6 small meals a day, antiemetic prn, Zofran 4 mg PO BID added to pre-medicate for nausea and help with compliance to seizure medications
#Cough
-with PMHX of aspiration pneumonia and leukocytosis
-Chest XR without new signs of pneumonia
-leukocytosis resolved- most likely seizure related
-Follow off Abx
-cough since improved/resolved
#Afib, unspecified
#Supratherapeutic INR since resolved
#INR however subtherapeutic at this time
Bridging therapeutic Lovenox with warfarin, completed with Therapeutic INR, continuing with warfarin only
Follow INR, goal 2-3
#chronic anemia
monitor H&H
relatively stable, no need for transfusion noted
#Chronic HFmrEF
#Essential HTN
#CKD stage II/III
#Anemia of chronic disease
#GERD
cont home meds
#Hx Right Upper Lobe Adenocarcinoma s/p Lobectomy
DVT ppx Lovenox warfarin bridge
full code
discussed with patient and patient's Anne
I have spent at least 40 minutes reviewing chart, test results, communication with consultants, family and providing direct patient care
Anticipated Discharge: Within 24 hours
Subjective/Interval History
-
Date of Service: January 11, 2025
no acute distress, resting comfortably in bed. Refused vimpat last night and morning d/t concerns regarding nausea.
Objective Data
-
Labs:
Laboratory Results
01/11/25
06:40
PT Pending
INR Pending
Vital Signs:
Vital Signs
Temp Pulse Resp BP Pulse Ox
98.3 F 59 16 155/65 96
01/10/25 23:00 01/10/25 23:00 01/10/25 23:00 01/10/25 23:00 01/10/25 23:00
I&O
01/10/25 01/11/25 01/12/25
06:59 06:59 06:59
Intake Total 120 / 120 100 / 100
Output Total 475 / 475 100 / 100
Balance -355 / -355 0 / 0
[2025-01-11 07:15] VITALS: BP 150/63
[2025-01-11 07:16] LABS: INR 2.48; PT 26.8 Sec (11.4-14.6)
[2025-01-11] MEDS: PROTONIX 40 MG PO (08:36)
[2025-01-11] MEDS: LASIX 40 MG PO (08:36)
[2025-01-11] MEDS: TEGRETOL XR (EXTENDED RELEASE) 400 MG PO ×2 (08:36→20:16)
[2025-01-11] MEDS: TEGRETOL XR (EXTENDED RELEASE) 200 MG PO ×2 (08:36→20:12)
[2025-01-11] MEDS: VITAMIN B-12 1000 MCG PO (08:36)
[2025-01-11] MEDS: LONITEN 10 MG PO ×2 (08:37→20:12)
[2025-01-11] MEDS: KEPPRA 1750 MG IV ×2 (08:37→20:11)
[2025-01-11] MEDS: NORVASC 2.5 MG PO (08:37)
[2025-01-11] MEDS: MIRALAX PO (08:43)
[2025-01-11] MEDS: METAMUCIL, KONSYL PO (08:43)
[2025-01-11] MEDS: VIMPAT PO (08:46)
[2025-01-11] MEDS: ZOFRAN 4 MG PO ×2 (11:52→19:39)
[2025-01-11] MEDS: VIMPAT 200 MG PO ×2 (12:15→20:16)
[2025-01-11 15:30] VITALS: BP 155/68
[2025-01-11 15:41] VITALS: BP 171/88; BP 178/71; PULSE 70; O2SAT 95
[2025-01-11] MEDS: FLOMAX 0.4 MG PO (17:40)
[2025-01-11] MEDS: COUMADIN 5 MG PO (17:41)
[2025-01-11] MEDS: NON-FORMULARY ITEM 225 MG PO (18:00)
[2025-01-11] MEDS: NON-FORMULARY ITEM 1 UNIT PO (18:01)
[2025-01-11 23:00] VITALS: BP 166/80
[2025-01-12] MEDS: ZOFRAN 4 MG IV ×2 (00:06→11:34)
[2025-01-12 07:30] VITALS: BP 180/80
[2025-01-12] MEDS: METAMUCIL, KONSYL PO (07:52)
[2025-01-12] MEDS: MIRALAX PO (07:53)
[2025-01-12] MEDS: KEPPRA 1750 MG IV ×2 (07:53→20:13)
[2025-01-12] MEDS: PROTONIX 40 MG PO (07:53)
[2025-01-12] MEDS: ZOFRAN 4 MG PO ×2 (07:54→20:14)
[2025-01-12] MEDS: TEGRETOL XR (EXTENDED RELEASE) 200 MG PO ×2 (07:54→20:14)
[2025-01-12] MEDS: TEGRETOL XR (EXTENDED RELEASE) 400 MG PO ×2 (07:54→20:14)
[2025-01-12] MEDS: LASIX 40 MG PO (07:54)
[2025-01-12] MEDS: VITAMIN B-12 1000 MCG PO (07:54)
[2025-01-12] MEDS: NORVASC 2.5 MG PO (07:54)
[2025-01-12] MEDS: LONITEN 10 MG PO ×2 (08:05→20:14)
--- NOTE | 2025-01-12 08:24 | W.PN.HOSP.TC ---
Today's Communication/Plan
-
cont sz medications
nausea meds prn
bowel regimen
Fleet enema
cont warfarin, daily INR checks
Assessment / Plan
Assessment / Plan
Physical Exam
General: No Apparent Distress, Comfortable
HEENT: NormoCephalic, Moist mucous membranes, Atraumatic
Respiratory: Clear and Non Labored Respirations
Cardiac: S1/S2 and Regular Rhythm; No Rub or Gallop
GI: Soft, Non Tender, Non Distended and Normal Bowel Sounds
Musculoskeletal: No Edema, no deformity
Neuro: AOx3 conversant coherent
Psych: Calm and cooperative
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 POC EEG showed high burden
seizure activity, admitted for status epilepticus, improved, neurologist provided recommendations; as per his conversation with bedside - patient back to baseline, midazolam spray recommended to prevent worsening seizures as per Neurologist. No
additional neurologic mgmt. Discussed in details with STR vs home PT - she would like to take patient home.
A/P:
#Acute metabolic encephalopathy 2/2 status epilepticus with postictal state, now resolved
#Nausea/vomiting
- Initially planned for discharge 12/29 however became progressively somnolent with some concern for recurrent seizure activity, restarted on Vimpat and Keppra inpatient
- Continuing antiepileptic regimen with carbamazepine, cenobamate 200 mg p.o. at night, lacosamide 200 mg p.o. twice daily, and levetiracetam 1750 mg p.o. twice daily
- new sz episode 01/09 self-limited carbamazepine increased to 600 mg BID as per neuro
- S/p lumbar puncture 01/01, results show elevated CSF protein, no evidence of meningitis/encephalitis
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
- Seizure precautions
- Patient nauseous suspect likely d/t recent increase in Carbamazepine, diet switched to 6 small meals a day, antiemetic prn, Zofran 4 mg PO BID added to pre-medicate for nausea and help with compliance to seizure medications
-nausea however persists, suspect severe constipation contributing. Suppository given and later Fleet enema ordered 01/12/25 abd x-ray appreciated small to mod stool
-IV zofran compazine prn
Constipation
daily miralax, bid sennosides docusate added
#Cough
-with PMHX of aspiration pneumonia and leukocytosis
-Chest XR without new signs of pneumonia
-leukocytosis resolved- most likely seizure related
-Follow off Abx
-cough since improved/resolved
#Afib, unspecified
#Supratherapeutic INR since resolved
#INR however subtherapeutic at this time
Bridging therapeutic Lovenox with warfarin, completed with Therapeutic INR, continuing with warfarin only
Follow INR, goal 2-3
#chronic anemia
monitor H&H
relatively stable, no need for transfusion noted
#Chronic HFmrEF
#Essential HTN
#CKD stage II/III
#Anemia of chronic disease
#GERD
cont home meds
#Hx Right Upper Lobe Adenocarcinoma s/p Lobectomy
DVT ppx Lovenox warfarin bridge
full code
discussed with patient and patient's Anne
I have spent at least 50 minutes reviewing chart, test results, communication with consultants, family and providing direct patient care
Anticipated Discharge: 24 - 48 hours
Subjective/Interval History
-
Date of Service: January 12, 2025
Persistent nausea vomiting. Suspect constipation contributing. Vital signs otherwise remain stable on room air
Objective Data
-
Labs:
Laboratory Results
01/12/25
05:36
PT 27.0 H
INR 2.50
Vital Signs:
Vital Signs
Temp Pulse Resp BP Pulse Ox
97.9 F 66 16 180/80 98
01/12/25 07:30 01/12/25 07:30 01/12/25 07:30 01/12/25 07:30 01/12/25 07:30
I&O
01/11/25 01/12/25 01/13/25
06:59 06:59 06:59
Intake Total 100 / 100 600 / 600
Output Total 100 / 100 275 / 275
Balance 0 / 0 325 / 325
[2025-01-12] MEDS: VIMPAT 200 MG PO ×2 (08:36→21:02)
[2025-01-12] MEDS: DULCOLAX 10 MG RECTAL (10:19)
[2025-01-12] MEDS: NSS 1000 IV (12:06)
[2025-01-12 12:09] LABS: Hematocrit 29.4 % (39.0-52.0); Hemoglobin 10.4 g/dL (13.0-18.0); Mean Corp Hgb Conc. 35.4 g/dL (33.0-37.0); Mean Corpuscular Hgb 33.9 pg (27.0-31.0); Mean Corpuscular Volume 95.8 fL (80.0-94.0); Mean Platelet Volume 11.1 fL (7.4-10.4); Platelet Count 159 10^3/uL (130-400); Red Blood Cell Count 3.07 10^6/uL (4.70-6.10); Red Cell Dist. Width 12.1 % (11.5-14.5); White Blood Cell Count 5.3 10^3/uL (4.8-10.8)
[2025-01-12 12:31] LABS: ALT (SGPT) 21 U/L (0-50); AST (SGOT) 31 U/L (17-59); Albumin 3.9 g/dl (3.5-5.0); Alkaline Phosphatase 77 U/L (38-126); Blood Urea Nitrogen 18 mg/dl (9-20); Calcium 8.8 mg/dl (8.4-10.2); Carbon Dioxide 25 mmol/L (22-30); Chloride 103 mmol/L (98-107); Estimated Creatinine Clearance 54 ml/min; Glucose 129 mg/dl (70-99); Magnesium 1.7 mg/dl (1.6-2.3); Phosphorus 3.5 mg/dl (2.5-4.5); Sodium 136 mmol/L (135-145); Total Bilirubin 0.5 mg/dl (0.2-1.3); Total Protein 8.4 g/dl (6.3-8.2); eGFR > 60.00
[2025-01-12 16:00] VITALS: BP 174/85
[2025-01-12] MEDS: COMPAZINE 5 MG IV (16:22)
[2025-01-12] MEDS: VASOTEC 0.625 MG IV (16:29)
[2025-01-12] MEDS: FLEET MINERAL OIL ENEMA 133 ML RECTAL (17:12)
[2025-01-12] MEDS: COUMADIN 5 MG PO (17:13)
[2025-01-12] MEDS: FLOMAX 0.4 MG PO (17:14)
[2025-01-12] MEDS: NON-FORMULARY ITEM 1 UNIT PO (18:26)
[2025-01-12] MEDS: NON-FORMULARY ITEM 200 MG PO (18:26)
[2025-01-12] MEDS: SENOKOT-S 1 TABLET PO (20:14)
[2025-01-12 23:00] VITALS: BP 113/53
[2025-01-13 06:00] VITALS: BMI 18.9
[2025-01-13 06:38] LABS: INR 2.81; PT 29.6 Sec (11.4-14.6)
[2025-01-13 07:16] VITALS: BP 139/63
[2025-01-13 07:25] VITALS: BP 150/64
[2025-01-13] MEDS: ZOFRAN 4 MG PO ×2 (07:38→19:40)
[2025-01-13] MEDS: TEGRETOL XR (EXTENDED RELEASE) 200 MG PO ×2 (09:09→20:45)
[2025-01-13] MEDS: TEGRETOL XR (EXTENDED RELEASE) 400 MG PO ×2 (09:09→20:45)
[2025-01-13] MEDS: LASIX 40 MG PO (09:10)
[2025-01-13] MEDS: METAMUCIL, KONSYL 1 PACKET PO (09:10)
[2025-01-13] MEDS: SENOKOT-S 1 TABLET PO ×2 (09:10→20:45)
[2025-01-13] MEDS: PROTONIX 40 MG PO (09:10)
[2025-01-13] MEDS: VITAMIN B-12 1000 MCG PO (09:10)
[2025-01-13] MEDS: NORVASC 2.5 MG PO (09:10)
[2025-01-13] MEDS: MIRALAX 17 GRAMS PO (09:10)
[2025-01-13] MEDS: LONITEN 10 MG PO ×2 (09:10→20:47)
[2025-01-13] MEDS: KEPPRA 1750 MG IV ×2 (09:11→20:45)
[2025-01-13] MEDS: VIMPAT 200 MG PO ×2 (09:12→20:45)
--- NOTE | 2025-01-13 10:30 | CM ---
Met with patient and
still want [facility] not snf
resources previously given for private cg
states daughter will be coming to [place] next week
referral in [facility]
PLAN: home with [facility] when stable
--- NOTE | 2025-01-13 12:57 | W.PN.HOSP.TC ---
Today's Communication/Plan
-
Assessment / Plan
Assessment / Plan
Physical Exam
General: No Apparent Distress, Comfortable
HEENT: NormoCephalic, Moist mucous membranes, Atraumatic
Respiratory: Clear and Non Labored Respirations
Cardiac: S1/S2 and Regular Rhythm; No Rub or Gallop
GI: Soft, Non Tender, Non Distended and Normal Bowel Sounds
Musculoskeletal: No Edema, no deformity
Neuro: AOx3 conversant coherent, slow to respond
Psych: Calm and cooperative
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 POC EEG showed high burden
seizure activity, admitted for status epilepticus, improved, neurologist provided recommendations; as per his conversation with bedside - patient back to baseline, midazolam spray recommended to prevent worsening seizures as per Neurologist. No
additional neurologic mgmt. Discussed in details with STR vs home PT - she would like to take patient home.
A/P:
#Acute metabolic encephalopathy 2/2 status epilepticus with postictal state, now resolved
#Nausea/vomiting
- Initially planned for discharge 12/29 however became progressively somnolent with some concern for recurrent seizure activity, restarted on Vimpat and Keppra inpatient
- Continuing antiepileptic regimen with carbamazepine, cenobamate 200 mg p.o. at night, lacosamide 200 mg p.o. twice daily, and levetiracetam 1750 mg p.o. twice daily
- new sz episode 01/09 self-limited carbamazepine increased to 600 mg BID as per neuro
- S/p lumbar puncture 01/01, results show elevated CSF protein, no evidence of meningitis/encephalitis
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
- Seizure precautions
- Patient nauseous suspect likely d/t recent increase in Carbamazepine, diet switched to 6 small meals a day, antiemetic prn, Zofran 4 mg PO BID added to pre-medicate for nausea and help with compliance to seizure medications
-nausea however persists, suspect severe constipation contributing. Suppository given and later Fleet enema ordered 01/12/25 abd x-ray appreciated small to mod stool
-IV zofran compazine prn
- Appreciate further guidance from neurology
Constipation
daily miralax, bid sennosides docusate added
#Cough
-with PMHX of aspiration pneumonia and leukocytosis
-Chest XR without new signs of pneumonia
-leukocytosis resolved- most likely seizure related
-Follow off Abx
-cough since improved/resolved
#Afib, unspecified
#Supratherapeutic INR since resolved
#INR however subtherapeutic at this time
Bridging therapeutic Lovenox with warfarin, completed with Therapeutic INR, continuing with warfarin only
Follow INR, goal 2-3
#chronic anemia
monitor H&H
relatively stable, no need for transfusion noted
#Chronic HFmrEF
#Essential HTN
#CKD stage II/III
#Anemia of chronic disease
#GERD
cont home meds
#Hx Right Upper Lobe Adenocarcinoma s/p Lobectomy
DVT ppx warfarin
full code
discussed with patient and patient's Anne
I have spent at least 40 minutes reviewing chart, test results, communication with consultants, family and providing direct patient care
Anticipated Discharge: 24 - 48 hours
Subjective/Interval History
-
Date of Service: January 13, 2025
Patient was seen and examined at bedside this morning. Not at his baseline mental status. Experiencing persistent nausea.
Objective Data
-
Labs:
Laboratory Results
01/13/25
06:18
PT 29.6 H
INR 2.81
Vital Signs:
Vital Signs
Temp Pulse Resp BP Pulse Ox
98.0 F 71 17 150/74 98
01/13/25 07:25 01/13/25 09:10 01/13/25 07:25 01/13/25 09:10 01/13/25 07:25
I&O
01/12/25 01/13/25 01/14/25
06:59 06:59 06:59
Intake Total 600 / 600 830 / 830
Output Total 275 / 275 400 / 400
Balance 325 / 325 430 / 430
Review of Systems
-
History Source: Patient
All other systems: Reviewed and negative
Constitutional: Reports Weakness
Abdomen/GI: Reports Nausea
Physical Exam
-
General: No Apparent Distress
[2025-01-13 14:39] VITALS: BP 117/79
[2025-01-13] MEDS: VASOTEC 0.625 MG IV (16:29)
[2025-01-13 17:09] VITALS: BP 110/66
[2025-01-13] MEDS: COUMADIN 5 MG PO (17:45)
[2025-01-13] MEDS: FLOMAX 0.4 MG PO (17:45)
[2025-01-13] MEDS: NON-FORMULARY ITEM 1 UNIT PO (17:46)
[2025-01-13] MEDS: NON-FORMULARY ITEM 150 MG PO (17:49)
[2025-01-13 23:00] VITALS: BP 153/70
[2025-01-14 05:51] VITALS: BMI 18.7
[2025-01-14 06:56] LABS: INR 4.71; PT 43.7 Sec (11.4-14.6)
[2025-01-14] MEDS: ZOFRAN 4 MG PO ×2 (07:41→19:46)
[2025-01-14 08:00] VITALS: BP 143/59
[2025-01-14] MEDS: NORVASC 2.5 MG PO (08:15)
[2025-01-14] MEDS: VITAMIN B-12 1000 MCG PO (08:15)
[2025-01-14] MEDS: TEGRETOL XR (EXTENDED RELEASE) 400 MG PO ×2 (08:15→20:32)
[2025-01-14] MEDS: SENOKOT-S 1 TABLET PO ×2 (08:15→20:32)
[2025-01-14] MEDS: LONITEN 10 MG PO ×2 (08:15→20:32)
[2025-01-14] MEDS: PROTONIX 40 MG PO (08:15)
[2025-01-14] MEDS: MIRALAX 17 GRAMS PO (08:15)
[2025-01-14] MEDS: TEGRETOL XR (EXTENDED RELEASE) 200 MG PO ×2 (08:15→20:32)
[2025-01-14] MEDS: LASIX 40 MG PO (08:15)
[2025-01-14] MEDS: KEPPRA 1750 MG IV ×2 (08:16→20:31)
[2025-01-14] MEDS: METAMUCIL, KONSYL 1 PACKET PO (08:16)
[2025-01-14] MEDS: VIMPAT 200 MG PO ×2 (08:17→20:32)
--- NOTE | 2025-01-14 09:18 | PN.CDI ---
CDI
- -
CDI:
Physician Documentation Request
Admit Date: 12/27/24 18:22
Dear Doctor Arik,
Please review the following and provide your response in the progress notes.
Clinical Indicators:
Height: 5 ft 10 in
Weight:130 lb 8 oz
BMI:18.7
If possible, please provide an associated diagnosis related to the abnormal BMI, such as:
BMI < or = to 19
Underweight
Cachectic
- Other
Use of terms such as suspected, likely, concern for, or probable (associated with a specific diagnosis that is being evaluated, monitored, or treated as if it exists) are acceptable and can be coded in the inpatient setting, when documented at the
time of discharge.
Thank you,
Sosa Vu RN
CDI Specialist
[facility]
Please use your independent medical judgment in providing your response.
[2025-01-14] MEDS: ZOFRAN 4 MG IV (11:26)
--- NOTE | 2025-01-14 12:08 | CM ---
Addendum entered by Freida Goddard 01/15/25 11:17:
IMM explained & signed. In chart
Original Note:
Patient seen at beside with
states daughter will be coming next week
referral [facility]
would prefer home vs. SNF
PLAN: home with [facility] when stable, CM continue to follow hospital progress
[2025-01-14 12:35] VITALS: BP 158/66; BP 171/78; PULSE 65; PULSE 76; O2SAT 97
[2025-01-14 15:01] VITALS: BP 159/73
--- NOTE | 2025-01-14 15:27 | W.PN.HOSP.TC ---
Addendum entered and electronically signed by Ede Elise DO 01/14/25 16:29:
Additional diagnoses as relates to patient's BMI of 18.7 is underweight, further evaluation and recommendation by RD pending
Original Note:
Today's Communication/Plan
-
Assessment / Plan
Assessment / Plan
Physical Exam
General: No Apparent Distress, Comfortable
HEENT: NormoCephalic, Moist mucous membranes, Atraumatic
Respiratory: Clear and Non Labored Respirations
Cardiac: S1/S2 and Regular Rhythm; No Rub or Gallop
GI: Soft, Non Tender, Non Distended and Normal Bowel Sounds
Musculoskeletal: No Edema, no deformity
Neuro: Awake and alert, slow to respond
Psych: Calm and cooperative
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 POC EEG showed high burden
seizure activity, admitted for status epilepticus, improved, neurologist provided recommendations; as per his conversation with bedside - patient back to baseline, midazolam spray recommended to prevent worsening seizures as per Neurologist. No
additional neurologic mgmt. Discussed in details with STR vs home PT - she would like to take patient home.
A/P:
#Acute metabolic encephalopathy 2/2 status epilepticus with postictal state, now resolved
#Nausea/vomiting
- Initially planned for discharge 12/29 however became progressively somnolent with some concern for recurrent seizure activity, restarted on Vimpat and Keppra inpatient
- Continuing antiepileptic regimen with carbamazepine, cenobamate 200 mg p.o. at night, lacosamide 200 mg p.o. twice daily, and levetiracetam 1750 mg p.o. twice daily
- new sz episode 01/09 self-limited carbamazepine increased to 600 mg BID as per neuro
- S/p lumbar puncture 01/01, results show elevated CSF protein, no evidence of meningitis/encephalitis
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
- Seizure precautions
- Patient nauseous suspect likely d/t recent increase in Carbamazepine, diet switched to 6 small meals a day, antiemetic prn, Zofran 4 mg PO BID added to pre-medicate for nausea and help with compliance to seizure medications, will check
carbamazepine level with morning labs
- nausea however persists, suspect severe constipation contributing. Suppository given and later Fleet enema ordered 01/12/25 abd x-ray appreciated small to mod stool
- IV zofran compazine prn
- Appreciate further guidance from neurology
Constipation
daily miralax, bid sennosides docusate added
#Cough
-with PMHX of aspiration pneumonia and leukocytosis
-Chest XR without new signs of pneumonia
-leukocytosis resolved- most likely seizure related
-Follow off Abx
-cough since improved/resolved
#Afib, unspecified
-Continue warfarin with INR goal 2-3, currently holding warfarin due to supratherapeutic INR which may be related to his AEDs
#chronic anemia
monitor H&H
relatively stable, no need for transfusion noted
#Chronic HFmrEF
#Essential HTN
#CKD stage II/III
#Anemia of chronic disease
#GERD
cont home meds
#Hx Right Upper Lobe Adenocarcinoma s/p Lobectomy
DVT ppx warfarin
full code
discussed with patient and patient's Anne
I have spent at least 40 minutes reviewing chart, test results, communication with consultants, family and providing direct patient care
Anticipated Discharge: 24 - 48 hours
Subjective/Interval History
-
Date of Service: January 14, 2025
Patient was seen and examined at bedside this morning. Had another episode of self-limited focal seizure yesterday with staring and arm twitching. Still experiencing nausea and lack of appetite. Mental status slightly below baseline.
Objective Data
-
Labs:
Laboratory Results
01/14/25
06:03
PT 43.7 H
INR 4.71
Vital Signs:
Vital Signs
Temp Pulse Resp BP Pulse Ox
98.1 F 70 16 159/73 98
01/14/25 15:01 01/14/25 15:01 01/14/25 15:01 01/14/25 15:01 01/14/25 15:01
I&O
01/13/25 01/14/25 01/15/25
06:59 06:59 06:59
Intake Total 830 / 830 240 / 240
Output Total 400 / 400 100 / 100
Balance 430 / 430 140 / 140
Review of Systems
-
History Source: Patient
All other systems: Reviewed and negative
Constitutional: Reports Fatigue
Abdomen/GI: Reports Nausea
Physical Exam
-
General: No Apparent Distress
[2025-01-14] MEDS: NON-FORMULARY ITEM 200 MG PO (17:09)
[2025-01-14] MEDS: FLOMAX 0.4 MG PO (17:14)
[2025-01-14] MEDS: NON-FORMULARY ITEM 1 UNIT PO (17:14)
[2025-01-14 23:00] VITALS: BP 146/65
--- NOTE | 2025-01-15 04:26 | DOWNTIME ---
Addendum entered by Loli Villanueva RN 01/15/25 14:08:
Correction to downtime 01/15/2025 from 0100 to 01/15/25 at 0415.
Original Note:
There was a [employer] Client Frequency Checker Downtime on 01/14/2025 from 0100 to 01/15/2025 at 0415. Downtime documentation of patient's care, including medication administrations, has been reconciled in the electronic record per guidelines. Refer to the
patient's paper chart under the miscellaneous tab to see printed paper medication records and downtime forms.
[2025-01-15 06:57] LABS: INR 3.59; PT 35.6 Sec (11.4-14.6)
[2025-01-15 07:01] LABS: Tegretol (Carbamazepine) 8.1 ug/ml (4-12)
[2025-01-15 07:16] LABS: Blood Urea Nitrogen 25 mg/dl (9-20); Calcium 8.8 mg/dl (8.4-10.2); Carbon Dioxide 30 mmol/L (22-30); Chloride 101 mmol/L (98-107); Estimated Creatinine Clearance 48 ml/min; Glucose 101 mg/dl (70-99); Potassium 3.6 mmol/L (3.5-5.1); Sodium 135 mmol/L (135-145); eGFR > 60.00
[2025-01-15 07:30] VITALS: BP 139/63
[2025-01-15] MEDS: KEPPRA 1750 MG IV ×2 (08:03→21:02)
[2025-01-15] MEDS: ZOFRAN 4 MG IV (08:05)
[2025-01-15] MEDS: LASIX 40 MG PO (09:34)
[2025-01-15] MEDS: ZOFRAN PO (09:34)
[2025-01-15] MEDS: VITAMIN B-12 1000 MCG PO (09:35)
[2025-01-15] MEDS: VIMPAT 200 MG PO ×2 (09:35→20:59)
[2025-01-15] MEDS: SENOKOT-S 1 TABLET PO ×2 (09:35→21:00)
[2025-01-15] MEDS: TEGRETOL XR (EXTENDED RELEASE) 200 MG PO ×2 (09:35→20:59)
[2025-01-15] MEDS: MIRALAX 17 GRAMS PO (09:36)
[2025-01-15] MEDS: PROTONIX 40 MG PO (09:36)
[2025-01-15] MEDS: TEGRETOL XR (EXTENDED RELEASE) 400 MG PO ×2 (09:36→20:58)
[2025-01-15] MEDS: NORVASC 2.5 MG PO (09:36)
[2025-01-15] MEDS: LONITEN 10 MG PO ×2 (09:36→21:13)
[2025-01-15] MEDS: METAMUCIL, KONSYL 1 PACKET PO (09:37)
[2025-01-15] MEDS: CATAPRES-TTS-2 0.2 MG TRANSDERM (11:31)
--- NOTE | 2025-01-15 12:48 | W.PN.HOSP.TC ---
Today's Communication/Plan
-
Assessment / Plan
Assessment / Plan
Physical Exam
General: No Apparent Distress, Comfortable
HEENT: NormoCephalic, Moist mucous membranes, Atraumatic
Respiratory: Clear and Non Labored Respirations
Cardiac: S1/S2 and Regular Rhythm; No Rub or Gallop
GI: Soft, Non Tender, Non Distended and Normal Bowel Sounds
Musculoskeletal: No Edema, no deformity
Neuro: Awake and alert, slow to respond
Psych: Calm and cooperative
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 POC EEG showed high burden
seizure activity, admitted for status epilepticus, improved, neurologist provided recommendations; as per his conversation with bedside - patient back to baseline, midazolam spray recommended to prevent worsening seizures as per Neurologist. No
additional neurologic mgmt. Discussed in details with STR vs home PT - she would like to take patient home.
A/P:
#Acute metabolic encephalopathy 2/2 status epilepticus with postictal state, now resolved
#Nausea/vomiting
- Initially planned for discharge 12/29 however became progressively somnolent with some concern for recurrent seizure activity, restarted on Vimpat and Keppra inpatient
- Continuing antiepileptic regimen with carbamazepine, cenobamate 200 mg p.o. at night, lacosamide 200 mg p.o. twice daily, and levetiracetam 1750 mg p.o. twice daily
- new sz episode 01/09 self-limited carbamazepine increased to 600 mg BID as per neuro
- S/p lumbar puncture 01/01, results show elevated CSF protein, no evidence of meningitis/encephalitis
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
- Seizure precautions
- Patient nauseous suspect likely d/t recent increase in Carbamazepine, diet switched to 6 small meals a day, antiemetic prn, Zofran 4 mg PO BID added to pre-medicate for nausea and help with compliance to seizure medications, carbamazepine level
within normal limits
- nausea improved however persists, suspect severe constipation contributing. Suppository given and later Fleet enema ordered 01/12/25 abd x-ray appreciated small to mod stool
-Anticipate discharge to home in the next 24 hours if no further seizures and able to tolerate p.o. diet
Constipation
daily miralax, bid sennosides docusate added
#Cough
-with PMHX of aspiration pneumonia and leukocytosis
-Chest XR without new signs of pneumonia
-leukocytosis resolved- most likely seizure related
-Follow off Abx
-cough since improved/resolved
#Afib, unspecified
-Continue warfarin with INR goal 2-3, currently holding warfarin due to supratherapeutic INR which may be related to his AEDs
#chronic anemia
monitor H&H
relatively stable, no need for transfusion noted
#Chronic HFmrEF
#Essential HTN
#CKD stage II/III
#Anemia of chronic disease
#GERD
cont home meds
#Hx Right Upper Lobe Adenocarcinoma s/p Lobectomy
DVT ppx warfarin
full code
discussed with patient and patient's Anne
I have spent at least 40 minutes reviewing chart, test results, communication with consultants, family and providing direct patient care
Anticipated Discharge: 24 - 48 hours
Subjective/Interval History
-
Date of Service: January 15, 2025
Patient was seen and examined at bedside this morning. No acute events overnight. Appears at baseline mental status. Still nauseous but tolerating p.o. diet.
Objective Data
-
Labs:
Laboratory Results
01/15/25
06:28
PT 35.6 H
INR 3.59
Sodium 135
Potassium 3.6
Chloride 101
Carbon Dioxide 30
BUN 25 H
Creatinine 1.0
Glucose 101 H
Calcium 8.8
Vital Signs:
Vital Signs
Temp Pulse Resp BP Pulse Ox
98.2 F 64 16 139/63 97
01/15/25 07:30 01/15/25 07:30 01/15/25 07:30 01/15/25 11:31 01/15/25 07:30
I&O
01/14/25 01/15/25 01/16/25
06:59 06:59 06:59
Intake Total 240 / 240 210 / 210 120 / 120
Output Total 100 / 100
Balance 140 / 140 210 / 210 120 / 120
Review of Systems
-
History Source: Patient
All other systems: Reviewed and negative
Abdomen/GI: Reports Nausea
Physical Exam
-
General: No Apparent Distress
[2025-01-15 13:35] VITALS: BP 131/63; PULSE 69; PULSE 70; O2SAT 98; O2SAT 99
[2025-01-15 15:30] VITALS: BP 124/50
[2025-01-15] MEDS: NON-FORMULARY ITEM 1 MG PO (17:09)
[2025-01-15] MEDS: FLOMAX 0.4 MG PO (17:13)
[2025-01-15] MEDS: NON-FORMULARY ITEM 1 UNIT PO (17:40)
[2025-01-15] MEDS: ZOFRAN 4 MG PO (21:01)
[2025-01-15 23:00] VITALS: BP 123/58
[2025-01-16 06:00] VITALS: BMI 33.4
[2025-01-16 07:00] VITALS: BP 124/52
[2025-01-16 07:43] LABS: INR 2.18; PT 24.7 Sec (11.4-14.6)
[2025-01-16] MEDS: KEPPRA 1750 MG IV ×2 (07:54→21:04)
[2025-01-16] MEDS: ZOFRAN 4 MG PO ×2 (07:55→21:02)
--- NOTE | 2025-01-16 10:00 | CM ---
Patient seen at bedside with
states daughter will be coming next week
PT eval yesterday-rec home health
referral in [facility] for [facility]
PLAN: Home with [facility] when stable
transportation forms on chart
[2025-01-16] MEDS: SENOKOT-S 1 TABLET PO ×2 (10:26→21:02)
[2025-01-16] MEDS: TEGRETOL XR (EXTENDED RELEASE) 400 MG PO ×2 (10:26→20:49)
[2025-01-16] MEDS: TEGRETOL XR (EXTENDED RELEASE) 200 MG PO ×2 (10:27→20:49)
[2025-01-16] MEDS: PROTONIX 40 MG PO (10:28)
[2025-01-16] MEDS: VIMPAT 200 MG PO ×2 (10:28→20:48)
[2025-01-16] MEDS: VITAMIN B-12 1000 MCG PO (10:29)
[2025-01-16] MEDS: NORVASC 2.5 MG PO (10:29)
[2025-01-16] MEDS: LASIX 40 MG PO (10:29)
[2025-01-16] MEDS: LONITEN 10 MG PO ×2 (10:29→21:08)
[2025-01-16] MEDS: METAMUCIL, KONSYL 1 PACKET PO (10:29)
[2025-01-16] MEDS: MIRALAX 17 GRAMS PO (10:38)
--- NOTE | 2025-01-16 11:46 | W.DCSUMMARY ---
Addendum entered and electronically signed by Ede Elise DO 01/16/25 14:15:
Discharge delayed due to patient being unable to obtain some of his outpatient antiepileptic medications.
Original Note:
Discharge Summary
Discharge Data
Date of Admission: 12/27/24
Date of Discharge: 01/16/25
Total time spent discharging patient (in min): 45
-
Pending Results: No
Hospital Course
Mr. 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
with worsening confusion for 1 day. POC EEG showed high burden seizure activity. He was admitted to the ICU for management of status epilepticus. Atraumatically improved with medication adjustments per neurology recommendations. He was plan
for discharge to home 12/29 however became impressively somnolent with concern for recurrent seizures. His antiepileptic regimen was further adjusted with improvement in his clinical status. He underwent lumbar puncture on 01/01 which showed elevated
CSF protein but no evidence of infection. He was started on IVIG treatments for possible autoimmune contribution to his seizures. He was able to tolerate 4 out of 5 IVIG treatments, the last treatment was held due to nausea and somnolence. On
01/09 he developed a short self-limiting focal seizure with isolated arm tremors and no postictal state, after which his carbamazepine was further adjusted. He developed nausea with subsequent poor p.o. intake after medication adjustments. This is
likely multifactorial including ongoing constipation in addition to medication effects. His diet was switched to 6 small meals a day with antiemetics as needed which he can continue at home. He will need to continue an aggressive bowel regimen in
order to avoid constipation. He was also instructed to stay well-hydrated. His warfarin was held on a few occasions due to supratherapeutic INR. He will need to monitor his INR closely at home in order to maintain a therapeutic warfarin regimen.
At time of hospital discharge he was medically stable. He will need to follow closely with his neurologist and with his primary care physician. He has home care with visiting nurse services arranged.
Physical Exam
General: No Apparent Distress, Comfortable
HEENT: NormoCephalic, Moist mucous membranes, Atraumatic
Respiratory: Clear and Non Labored Respirations
Cardiac: S1/S2 and Regular Rhythm; No Rub or Gallop
GI: Soft, Non Tender, Non Distended and Normal Bowel Sounds
Musculoskeletal: No Edema, no deformity
Neuro: Awake and alert, slow to respond
Psych: Calm and cooperative
Discharge Plan
-
Patient Disposition: Home with Home Care
Discharge Diagnosis/Procedures: Seizures
Diet: No added salt
Activity Restrictions/Additional Instructions:
Mr. 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
with worsening confusion for 1 day. POC EEG showed high burden seizure activity. He was admitted to the ICU for management of status epilepticus. Atraumatically improved with medication adjustments per neurology recommendations. He was plan
for discharge to home 12/29 however became impressively somnolent with concern for recurrent seizures. His antiepileptic regimen was further adjusted with improvement in his clinical status. He underwent lumbar puncture on 01/01 which showed elevated
CSF protein but no evidence of infection. He was started on IVIG treatments for possible autoimmune contribution to his seizures. He was able to tolerate 4 out of 5 IVIG treatments, the last treatment was held due to nausea and somnolence. On
01/09 he developed a short self-limiting focal seizure with isolated arm tremors and no postictal state, after which his carbamazepine was further adjusted. He developed nausea with subsequent poor p.o. intake after medication adjustments. This is
likely multifactorial including ongoing constipation in addition to medication effects. His diet was switched to 6 small meals a day with antiemetics as needed which he can continue at home. He will need to continue an aggressive bowel regimen in
order to avoid constipation. He was also instructed to stay well-hydrated. His warfarin was held on a few occasions due to supratherapeutic INR. He will need to monitor his INR closely at home in order to maintain a therapeutic warfarin regimen.
At time of hospital discharge he was medically stable. He will need to follow closely with his neurologist and with his primary care physician. He has home care with visiting nurse services arranged.
Referrals:
Edward Edouard MD [Active, Neurology] - in one to two days
Robin Garcia MD [Family Provider, Internal Medicine]
Prescriptions:
New
polyethylene glycol 3350 17 gram Powder In Packet
17 g PO DAILY 30 Days Qty: 30 0RF
carbamazepine 100 mg Tablet Extended Release 12 Hr
200 mg PO BID 30 Days Qty: 120 0RF
Rx Instructions:
Take 200 mg BID plus the 400 mg BID you were already taking, total of 600 mg BID
sennosides-docusate sodium 8.6-50 mg Tablet
1 tab PO BID 30 Days Qty: 60 0RF
ondansetron HCl 4 mg Tablet
4 mg PO BID 30 Days Qty: 60 0RF
lacosamide 200 mg Tablet
200 mg PO BID 30 Days Qty: 60 0RF
cenobamate 200 mg tablet
200 mg PO HS 30 Days Qty: 30 0RF
Rx Instructions:
This is the pt's prior home med he will continue, not a new rx
Continued
minoxidil 10 mg Tablet
10 mg PO BID
furosemide 40 mg Tablet
40 mg PO DAILY
warfarin 1 mg Tablet
5 mg PO QPM
cyanocobalamin (vitamin B-12) 1,000 mcg tablet
1,000 mcg PO DAILY
pantoprazole 40 mg tablet,delayed release (DR/EC)
40 mg PO DAILY
Xcopri 200 mg Tablet
200 mg PO QPM
clonidine 0.2 mg/24 hr patch weekly
0.2 mg transdermal WE 30 Days Qty: 4 0RF
amlodipine 2.5 mg Tablet
2.5 mg PO DAILY
carbamazepine 200 mg tablet extended release 12 hr
400 mg PO BID
levetiracetam 500 mg tablet
1,750 mg PO BID
lorazepam 1 mg tablet
1 mg PO Q6HPRN PRN (Reason: anxiety)
silodosin 8 mg Capsule
8 mg PO QPM
psyllium Packet
1 packet PO DAILY
Discontinued
Vitamin C 100 mg Tablet
100 mg PO QPM
Discharge Orders:
Discharge Patient (As Directed); Ordered 01/16/25
Ordered By: Ede Elise
Discharge Date and Time
Print Language: SETSWANA
[2025-01-16] MEDS: ZOFRAN 4 MG IV (13:35)
--- NOTE | 2025-01-16 14:10 | W.PN.HOSP.TC ---
Today's Communication/Plan
-
Assessment / Plan
Assessment / Plan
Physical Exam
General: No Apparent Distress, Comfortable
HEENT: NormoCephalic, Moist mucous membranes, Atraumatic
Respiratory: Clear and Non Labored Respirations
Cardiac: S1/S2 and Regular Rhythm; No Rub or Gallop
GI: Soft, Non Tender, Non Distended and Normal Bowel Sounds
Musculoskeletal: No Edema, no deformity
Neuro: Awake and alert, no tremor
Psych: Calm and cooperative
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 POC EEG showed high burden
seizure activity, admitted for status epilepticus, improved, neurologist provided recommendations; as per his conversation with bedside - patient back to baseline, midazolam spray recommended to prevent worsening seizures as per Neurologist. No
additional neurologic mgmt. Discussed in details with STR vs home PT - she would like to take patient home.
A/P:
#Acute metabolic encephalopathy 2/2 status epilepticus with postictal state, now resolved
#Nausea/vomiting
- Initially planned for discharge 12/29 however became progressively somnolent with some concern for recurrent seizure activity, restarted on Vimpat and Keppra inpatient
- Continuing antiepileptic regimen with carbamazepine, cenobamate 200 mg p.o. at night, lacosamide 200 mg p.o. twice daily, and levetiracetam 1750 mg p.o. twice daily
- new sz episode 01/09 self-limited carbamazepine increased to 600 mg BID as per neuro
- S/p lumbar puncture 01/01, results show elevated CSF protein, no evidence of meningitis/encephalitis
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
- Seizure precautions
- Patient nauseous suspect likely d/t recent increase in Carbamazepine, diet switched to 6 small meals a day, antiemetic prn, Zofran 4 mg PO BID added to pre-medicate for nausea and help with compliance to seizure medications, carbamazepine level
within normal limits
- nausea improved however persists, suspect severe constipation contributing. Suppository given and later Fleet enema ordered 01/12/25 abd x-ray appreciated small to mod stool
-Anticipate discharge to home tomorrow once outpatient antiepileptic medications are able to be procured
Constipation
daily miralax, bid sennosides docusate added
#Cough
-with PMHX of aspiration pneumonia and leukocytosis
-Chest XR without new signs of pneumonia
-leukocytosis resolved- most likely seizure related
-Follow off Abx
-cough since improved/resolved
#Afib, unspecified
-Continue warfarin with INR goal 2-3, currently holding warfarin due to supratherapeutic INR which may be related to his AEDs
#chronic anemia
monitor H&H
relatively stable, no need for transfusion noted
#Chronic HFmrEF
#Essential HTN
#CKD stage II/III
#Anemia of chronic disease
#GERD
cont home meds
#Hx Right Upper Lobe Adenocarcinoma s/p Lobectomy
DVT ppx warfarin
full code
discussed with patient and patient's Anne
I have spent at least 40 minutes reviewing chart, test results, communication with consultants, family and providing direct patient care
Anticipated Discharge: Within 24 hours
Subjective/Interval History
-
Date of Service: January 16, 2025
Patient was seen and examined at bedside this morning. Mental status at baseline, tolerating p.o. diet. Feeling generally well today.
Objective Data
-
Labs:
Laboratory Results
01/16/25
06:43
PT 24.7 H
INR 2.18
Vital Signs:
Vital Signs
Temp Pulse Resp BP Pulse Ox
98.8 F 64 16 124/52 96
01/16/25 07:00 01/16/25 07:00 01/16/25 07:00 01/16/25 07:00 01/16/25 07:00
I&O
01/15/25 01/16/25 01/17/25
06:59 06:59 06:59
Intake Total 210 / 210 1400 / 1400
Balance 210 / 210 1400 / 1400
Review of Systems
-
History Source: Patient
All other systems: Reviewed and negative
Physical Exam
-
General: No Apparent Distress
[2025-01-16 15:00] VITALS: BP 142/67
[2025-01-16] MEDS: NON-FORMULARY ITEM 1 UNIT PO (18:08)
[2025-01-16] MEDS: FLOMAX 0.4 MG PO (18:08)
[2025-01-16] MEDS: NON-FORMULARY ITEM 200 MG PO (18:08)
[2025-01-16 23:20] VITALS: BP 131/58
[2025-01-17 06:47] LABS: INR 1.53; PT 18.6 Sec (11.4-14.6)
[2025-01-17 07:00] VITALS: BP 181/79
[2025-01-17] MEDS: METAMUCIL, KONSYL 1 PACKET PO (09:24)
[2025-01-17] MEDS: MIRALAX 17 GRAMS PO (09:24)
[2025-01-17] MEDS: TEGRETOL XR (EXTENDED RELEASE) 400 MG PO (09:26)
[2025-01-17] MEDS: NORVASC 2.5 MG PO (09:26)
[2025-01-17] MEDS: LONITEN 10 MG PO (09:27)
[2025-01-17] MEDS: LASIX 40 MG PO (09:27)
[2025-01-17] MEDS: ZOFRAN 4 MG PO (09:27)
[2025-01-17] MEDS: VITAMIN B-12 1000 MCG PO (09:27)
[2025-01-17] MEDS: SENOKOT-S 1 TABLET PO (09:27)
[2025-01-17] MEDS: PROTONIX 40 MG PO (09:27)
[2025-01-17] MEDS: TEGRETOL XR (EXTENDED RELEASE) 200 MG PO (09:28)
[2025-01-17] MEDS: KEPPRA 1750 MG IV (09:28)
[2025-01-17] MEDS: VIMPAT 200 MG PO (09:50)
[2025-01-17] MEDS: LOVENOX 60 MG SC (09:51)
--- NOTE | 2025-01-17 10:19 | W.DCSUMMARY ---
Discharge Summary
Discharge Data
Date of Admission: 12/27/24
Date of Discharge: 01/17/25
Total time spent discharging patient (in min): 45
-
Pending Results: No
Hospital Course
Mr. 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
with worsening confusion for 1 day. POC EEG showed high burden seizure activity. He was admitted to the ICU for management of status epilepticus. Atraumatically improved with medication adjustments per neurology recommendations. He was plan
for discharge to home 12/29 however became impressively somnolent with concern for recurrent seizures. His antiepileptic regimen was further adjusted with improvement in his clinical status. He underwent lumbar puncture on 01/01 which showed elevated
CSF protein but no evidence of infection. He was started on IVIG treatments for possible autoimmune contribution to his seizures. He was able to tolerate 4 out of 5 IVIG treatments, the last treatment was held due to nausea and somnolence. On
01/09 he developed a short self-limiting focal seizure with isolated arm tremors and no postictal state, after which his carbamazepine was further adjusted. He developed nausea with subsequent poor p.o. intake after medication adjustments. This is
likely multifactorial including ongoing constipation in addition to medication effects. His diet was switched to 6 small meals a day with antiemetics as needed which he can continue at home. He will need to continue an aggressive bowel regimen in
order to avoid constipation. He was also instructed to stay well-hydrated. His warfarin was held on a few occasions due to supratherapeutic INR. He will need to monitor his INR closely at home in order to maintain a therapeutic warfarin regimen.
At time of hospital discharge he was medically stable. He will need to follow closely with his neurologist and with his primary care physician. He has home care with visiting nurse services arranged.
Physical Exam
General: No Apparent Distress, Comfortable
HEENT: NormoCephalic, Moist mucous membranes, Atraumatic
Respiratory: Clear and Non Labored Respirations
Cardiac: S1/S2 and Regular Rhythm; No Rub or Gallop
GI: Soft, Non Tender, Non Distended and Normal Bowel Sounds
Musculoskeletal: No Edema, no deformity
Neuro: Awake and alert, no tremor
Psych: Calm and cooperative
Discharge Plan
-
Patient Disposition: Home with Home Care
Discharge Diagnosis/Procedures: Seizures
Diet: No added salt
Activity Restrictions/Additional Instructions:
Mr. 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
with worsening confusion for 1 day. POC EEG showed high burden seizure activity. He was admitted to the ICU for management of status epilepticus. Atraumatically improved with medication adjustments per neurology recommendations. He was plan
for discharge to home 12/29 however became impressively somnolent with concern for recurrent seizures. His antiepileptic regimen was further adjusted with improvement in his clinical status. He underwent lumbar puncture on 01/01 which showed elevated
CSF protein but no evidence of infection. He was started on IVIG treatments for possible autoimmune contribution to his seizures. He was able to tolerate 4 out of 5 IVIG treatments, the last treatment was held due to nausea and somnolence. On
01/09 he developed a short self-limiting focal seizure with isolated arm tremors and no postictal state, after which his carbamazepine was further adjusted. He developed nausea with subsequent poor p.o. intake after medication adjustments. This is
likely multifactorial including ongoing constipation in addition to medication effects. His diet was switched to 6 small meals a day with antiemetics as needed which he can continue at home. He will need to continue an aggressive bowel regimen in
order to avoid constipation. He was also instructed to stay well-hydrated. His warfarin was held on a few occasions due to supratherapeutic INR. He will need to monitor his INR closely at home in order to maintain a therapeutic warfarin regimen.
At time of hospital discharge he was medically stable. He will need to follow closely with his neurologist and with his primary care physician. He has home care with visiting nurse services arranged.
Referrals:
Edward Edouard MD [Active, Neurology] - in one to two days
Robin Garcia MD [Family Provider, Internal Medicine]
Prescriptions:
New
polyethylene glycol 3350 17 gram Powder In Packet
17 g PO DAILY 30 Days Qty: 30 0RF
carbamazepine 100 mg Tablet Extended Release 12 Hr
200 mg PO BID 30 Days Qty: 120 0RF
Rx Instructions:
Take 200 mg BID plus the 400 mg BID you were already taking, total of 600 mg BID
sennosides-docusate sodium 8.6-50 mg Tablet
1 tab PO BID 30 Days Qty: 60 0RF
ondansetron HCl 4 mg Tablet
4 mg PO BID 30 Days Qty: 60 0RF
lacosamide 200 mg Tablet
200 mg PO BID 30 Days Qty: 60 0RF
cenobamate 200 mg tablet
200 mg PO HS 30 Days Qty: 30 0RF
Rx Instructions:
This is the pt's prior home med he will continue, not a new rx
enoxaparin 60 mg/0.6 mL Syringe
60 mg SC Q12H Qty: 12 0RF
Continued
minoxidil 10 mg Tablet
10 mg PO BID
furosemide 40 mg Tablet
40 mg PO DAILY
warfarin 1 mg Tablet
5 mg PO QPM
cyanocobalamin (vitamin B-12) 1,000 mcg tablet
1,000 mcg PO DAILY
pantoprazole 40 mg tablet,delayed release (DR/EC)
40 mg PO DAILY
Xcopri 200 mg Tablet
200 mg PO QPM
clonidine 0.2 mg/24 hr patch weekly
0.2 mg transdermal WE 30 Days Qty: 4 0RF
amlodipine 2.5 mg Tablet
2.5 mg PO DAILY
carbamazepine 200 mg tablet extended release 12 hr
400 mg PO BID
levetiracetam 500 mg tablet
1,750 mg PO BID
lorazepam 1 mg tablet
1 mg PO Q6HPRN PRN (Reason: anxiety)
silodosin 8 mg Capsule
8 mg PO QPM
psyllium Packet
1 packet PO DAILY
Discontinued
Vitamin C 100 mg Tablet
100 mg PO QPM
Discharge Orders:
Discharge Patient (As Directed); Ordered 01/17/25
Ordered By: Ede Elise
Discharge Date and Time
Print Language: TELUGU
--- NOTE | 2025-01-17 10:27 | CM ---
Patient seen at bedside with
discharge today
wants home with [facility]
daughter to come to [place] on
has resources for private caregivers
PT rec Home Health - referral in [facility]
IMM explained & signed. In chart
Has DME at home including hospital bed
PLAN: home with [facility]
ambulance transport form on chart, 1 step into home
[2025-01-17 11:30] VITALS: BP 146/70
== END 2025-01-17 11:51 | disposition home health service (06) | DRG 100 ==
LOC: 3 WEST ACU 18:22
PROVIDERS: Internal Medicine; Nurse Practitioner Family; Nurse Practitioner Primary Care; Physician Assistant Medical; Psychiatry & Neurology Clinical Neurophysiology; Radiology Vascular & Interventional Radiology; Student in an Organized Health Care Education/Training Program; ADMITTING PHYSICIAN Hospitalist; ATTENDING PHYSICIAN Internal Medicine; CONSULT PHYSICIAN Internal Medicine Critical Care Medicine; CONSULT PHYSICIAN Psychiatry & Neurology Neurology; EMERGENCY PHYSICIAN Emergency Medicine; FAMILY PHYSICIAN Internal Medicine
PROC: XX20X89 Monitoring of Brain Electrical Activity, Computer-aided Detection and Notification, New Technology Group 9 (ICD-10-PCS; 2024-12-28)
PROC: 009U3ZX Drainage of Spinal Canal, Percutaneous Approach, Diagnostic (ICD-10-PCS; 2025-01-01)
PROC: 30233S1 Transfusion of Nonautologous Globulin into Peripheral Vein, Percutaneous Approach (ICD-10-PCS; 2025-01-02)
DX: G40.911 Epilepsy, unspecified, intractable, with status epilepticus (principal); G93.41 Metabolic encephalopathy; I50.22 Chronic systolic (congestive) heart failure; I13.0 Hypertensive heart and chronic kidney disease with heart failure and stage 1 through stage 4 chronic kidney disease, or unspecified chronic kidney disease; Z68.1 Body mass index [BMI] 19.9 or less, adult; N18.30 Chronic kidney disease, stage 3 unspecified; I48.0 Paroxysmal atrial fibrillation; D63.1 Anemia in chronic kidney disease; R11.2 Nausea with vomiting, unspecified; K59.00 Constipation, unspecified; T42.1X5A Adverse effect of iminostilbenes, initial encounter; I27.20 Pulmonary hypertension, unspecified; E78.00 Pure hypercholesterolemia, unspecified; N40.0 Benign prostatic hyperplasia without lower urinary tract symptoms; R63.6 Underweight; D72.829 Elevated white blood cell count, unspecified; R05.9 Cough, unspecified; R79.1 Abnormal coagulation profile; K21.9 Gastro-esophageal reflux disease without esophagitis; G47.33 Obstructive sleep apnea (adult) (pediatric); J45.20 Mild intermittent asthma, uncomplicated; T36.95XA Adverse effect of unspecified systemic antibiotic, initial encounter; I35.0 Nonrheumatic aortic (valve) stenosis; Z85.118 Personal history of other malignant neoplasm of bronchus and lung; Z90.2 Acquired absence of lung [part of]; Z86.61 Personal history of infections of the central nervous system; Z86.73 Personal history of transient ischemic attack (TIA), and cerebral infarction without residual deficits; Z85.820 Personal history of malignant melanoma of skin; Z79.01 Long term (current) use of anticoagulants
CPT/HCPCS: 36600; 62328; 70450; 71045; 74018; 80048; 80053; 80156; 81003; 82140; 82805; 82945; 82962; 83735; 84100; 84157; 85014; 85018; 85025; 85027; 85610; 86255; 86850; 86900; 86901; 87116; 87483; 89051; 92526; 92610; 93005; 95705; 95708; 96374; 96375; 97116; 97163; 97167; 97530; 97535; 99291; C9254; J1569

== ENCOUNTER → 2025-01-21 14:12 | Outpatient (REF) | payer MEDICARE, OTHER, SELFPAY ==
[2025-01-21 14:30] LABS: % Basophils 0.2 % (0-2); % Eosinophils 0.1 % (0-6); % Immature Granulocytes 0.5 % (0-0.5); % Lymphocytes 14.1 % (20.5-51.1); % Monocytes 17.9 % (1.7-9.3); % Neutrophils 67.2 % (42.2-75.2); Absolute Lymphocytes 1.2 10^3/uL (1.2-3.4); Absolute Monocytes 1.5 10^3/uL (0.1-0.6); Absolute Neutrophils 5.5 10^3/uL (1.4-6.5); Hematocrit 30.5 % (39.0-52.0); Hemoglobin 10.3 g/dL (13.0-18.0); Mean Corp Hgb Conc. 33.8 g/dL (33.0-37.0); Mean Corpuscular Hgb 32.4 pg (27.0-31.0); Mean Corpuscular Volume 95.9 fL (80.0-94.0); Mean Platelet Volume 10.3 fL (7.4-10.4); Nucleated Red Blood Cells % 0 % (-); Platelet Count 317 10^3/uL (130-400); Red Blood Cell Count 3.18 10^6/uL (4.70-6.10); Red Cell Dist. Width 12.3 % (11.5-14.5); White Blood Cell Count 8.1 10^3/uL (4.8-10.8)
[2025-01-21 14:36] LABS: ALT (SGPT) 15 U/L (0-50); AST (SGOT) 20 U/L (17-59); Albumin 3.7 g/dl (3.5-5.0); Alkaline Phosphatase 60 U/L (38-126); Blood Urea Nitrogen 30 mg/dl (9-20); Calcium 8.7 mg/dl (8.4-10.2); Carbon Dioxide 31 mmol/L (22-30); Chloride 97 mmol/L (98-107); Glucose 131 mg/dl (70-99); Potassium 4.3 mmol/L (3.5-5.1); Sodium 137 mmol/L (135-145); Total Bilirubin 0.4 mg/dl (0.2-1.3); Total Protein 7.7 g/dl (6.3-8.2); eGFR > 60.00
[2025-01-21 14:37] LABS: Tegretol (Carbamazepine) 8.8 ug/ml (4-12)
== END ==
LOC: CLAB 14:12
PROVIDERS: ATTENDING PHYSICIAN Nurse Practitioner Adult Health; FAMILY PHYSICIAN Internal Medicine
DX: G40.201 Localization-related (focal) (partial) symptomatic epilepsy and epileptic syndromes with complex partial seizures, not intractable, with status epilepticus (principal); G40.901 Epilepsy, unspecified, not intractable, with status epilepticus
CPT/HCPCS: 36415; 80053; 80156; 85025

== ENCOUNTER 2025-01-22 14:48 | Inpatient (IN) | payer MEDICARE, OTHER, SELFPAY ==
[2025-01-22] VITALS (91 sets, daily range): BP systolic 89–175; BP diastolic 46–106; BMI 20.1
--- NOTE | 2025-01-22 09:42 | ED.GENMED ---
History of Present Illness
<Stevan Dai PA-C - Last Filed: 01/22/25 13:45>
General
Chief Complaint: Seizure
Source: records and spouse
Time Seen by Provider: 01/22/25 09:32
History of Present Illness
History of Present Illness:
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
emergency department via EMS with who reports that last night patient had what she describes as a full body seizure and change in mental status describing the patient she back and forth in bed but noting that the movements did not seem typical
of his usual seizure, this morning seem to be somnolent prompting her to contact his neurologist who recommended he come to the ER for further evaluation. was unable to bring the patient in private vehicle so contacted EMS. Patient is not
providing any history at time of my exam. Most of history was obtained from the spouse and recent discharge summary from 5 days ago when patient was discharged. He was recently admitted in the ICU for status epilepticus with multiple breakthrough
seizures, had multiple medication adjustments during that time. Had lumbar puncture which did not yield any infectious etiology. Upon getting back to the ER room it was found patient had a fever of 103, was unaware of any fevers at home.
Past History
<Stevan Dai PA-C - Last Filed: 01/22/25 13:45>
Past History
ED Past Medical History: Asthma, Cancer (Lung, melanoma), CHF, CVA, HTN, Hypercholesterolemia, Seizures and Other (COREY C-pap at night, Childhood Meningitis)
ED Past Surgical History: Tonsilectomy and Other (right lobectomy, Uvulectomy)
Social History
Tobacco: Non-smoker
Alcohol: None
Drug: None
Personal:
Living: with family
Employment: Retired
Family History
Family History: Other (reviewed and Noncontributory)
Review of Systems
<Stevan Dai PA-C - Last Filed: 01/22/25 13:45>
Review of Systems
All Other Systems: ROS reviewed and negative except as documented in HPI and ROS
Phy Exam
<Stevan Dai PA-C - Last Filed: 01/22/25 13:45>
Physical Exam
Physical Exam:
GENERAL: Somnolent, maintaining airway, sickly appearing, dried sputum/vomitus on shirt
HEAD: NCAT
EYE: clear conjunctiva
NECK: Supple
ENT: o/p clr, mmm.
CARDIAC: Tachycardic rate and normal rhythm.
LUNGS: Rhonchorous lung sounds, no wheezing or rales, no tachypnea
ABDOMEN: Soft, without focal tenderness, no r/g, no cvat
NEUROLOGICAL: Unable to assess, tremulous, is not following commands
SKIN: Hot to the touch, clammy, skin intact.
MUSCULOSKELETAL: No edema, well perfused.
PSYCH: Unable to assess
Scores
<Stevan Dai PA-C - Last Filed: 01/22/25 13:45>
Heart Failure Risk
Heart Failure Risk Score: Not Applicable
Heart Score for Chest Pain Patients
STEMI patient?: Not applicable
Withdrawal Assessment of Alcohol
Withdrawal Assessment Completed?: Not applicable
Course
<Stevan Dai PA-C - Last Filed: 01/22/25 13:45>
Orders/Labs/Results
Orders:
Orders
01/22/25 Breakfast
NPO
Reason for opting out of Paint Pourer order writing: Provider Decision
Allow oral meds: No
Allow clear liquids: No
01/22/25 09:33
EEG [Rapid Point of Care EEG (ED/ICU ONLY)] Q1H
Indications for use:: Altered Mental Status
01/22/25 09:38
0.9% Sodium Chloride 1000 ml [Nss] 1,000 ml IV BOLUS
Acetaminophen [Tylenol/Feverall] 650 mg RECTAL NOW STA
01/22/25 09:39
CR Chest Portable - 1 View Urgent
Comment:
Reason For Exam: fever, AMS
Reason Study Needs to be Portable: Unable to Transport
01/22/25 09:40
Electrocardiogram (*1) Urgent
Reason for Study: Bradycardia / Tachycardia
EKG- Treatment ONCE
01/22/25 09:56
Propofol 1,000,000 Mcg/100 ml [Diprivan] 1,000,000 mcg in 100 ml .ROUTE .STK-MED
01/22/25 10:02
Ammonia Urgent
COVID-19 Antigen Urgent
Source: Nasal Swab
CPK [Creatine Phosphokinase] Urgent
Complete Blood Count/With Diff Urgent
Comprehensive Metabolic Panel Urgent
Lactic Acid Q4H
Comment: CANCEL 2nd LACTIC ACID IF 1st LACTIC ACID IS LESS THAN 2
PTT Urgent
Prothrombin Time Urgent
Blood Culture Q30M
MISHA Source: Blood/Venous
Specimen Description:
01/22/25 10:06
ASA Classification Routine
Propofol [Diprivan] 50 mg IV NOW STA
01/22/25 10:07
NEUROLOGY CONSULT Urgent
Consulting Provider: Edward Edouard
Was physician already notified: Yes
ASA Classification Routine
Propofol 1,000,000 Mcg/100 ml [Diprivan] 1,000,000 mcg in 100 ml IV NOW
Indication:: Light Sedation
Begin Infusion:: Now
Goal:: RASS 0 to -2
Maximum dose in mcg/kg/min:: 50
Initial dose based on RASS:: Yes
If RASS is:: +1 or pt hemodynamically unstable (SBP < 90mmHg), initiate at 10 mcg/kg/min
If RASS is:: +2, initiate at 20 mcg/kg/min
If RASS is:: greater than or equal to +3, initiate at 30 mcg/kg/min
Titration Instructions:: Titrate by 5-10 mcg/kg/min every 5 minutes until RASS 0 to -2 achieved.
Taper Instructions:: If RASS is at or below goal for 4 consecutive hours decrease infusion by
Taper Instructions:: 5-10 mcg/kg/min every 2 hours to off.
Over-sedation Instructions:: If CPOT 0-2 (at goal) AND RASS -3 to -5 (below goal) decrease sedative by
Over-sedation Instructions:: 50% first. If pain score remains at goal and RASS remains below goal in
Over-sedation Instructions:: 1 hour, decrease opioid infusion by 50%.
Notify provider:: immediately if patient exhibits signs/symptoms of propofol-related
Notify provider:: infusion syndrome.
Additional Instructions:: Patient MUST be mechanically ventilated and MUST receive analgesia.
Propofol [Diprivan] 50 mg IV NOW STA
Propofol [Diprivan] 20 ml .ROUTE .STK-MED
01/22/25 10:08
CT Head W/o Iv Contrast Urgent
Comment:
Reason For Exam: seizures
Metoprolol [Lopressor] 5 mg IV NOW STA
01/22/25 10:21
EEG Routine Urgent
Reason for Exam: change in mental status
01/22/25 10:35
CR Chest Portable - 1 View Urgent
Comment:
Reason For Exam: R IJ attempt; r/o pneumothorax
Reason Study Needs to be Portable: Unable to Transport
01/22/25 10:42
Blood Culture Q30M
MISHA Source: Blood/Venous
Specimen Description:
01/22/25 11:21
ABG [Arterial Blood Gas] Urgent
%Oxygen/Room Air: 97
01/22/25 11:49
Lactic Acid Urgent
PTT Urgent
Piperacillin/Tazo 3.375 Gram [Zosyn] 3.375 gram in 50 ml IV NOW
01/22/25 11:53
Code Status As Directed
Resuscitation Status: Full Code
Activity As Directed
Activity Level: Bedrest
Notify MD As Directed
Notify physician if: Bridge Admission orders placed.
Notify attending physician:
-- upon arrival to unit
OR
-- when patient is identified as an ED hold
Pneumatic Compression Sleeves As Directed
Type: Knee high
Vital Signs As Directed
Frequency: Per unit guidelines
O2 Therapy [RESP] Routine
Titrate/Wean O2 to maintain O2 sat greater than (%): 92
01/22/25 11:54
DX Deep Vein Thrombosis Video Routine
01/22/25 12:00
Triglycerides Routine
Comment: baseline levels with propofol infusion
Vancomycin [Vancocin] 1,500 mg 0.9% Sodium Chloride 500 ml [Nss] 500 ml IV NOW
01/22/25 12:15
Bowden Placement- Treatment ONCE
Reason for insertion: I&O's Critical Care
01/22/25 12:34
Urinalysis Reflex To Culture Urgent
Date Specimen was Collected: 01/22/25
Time Specimen was Collected: 11:01
Urine Microscopic Reflex Cult Urgent
Urine Culture Urgent
MISHA Source: U
Specimen Description:
Date Specimen was Collected: 01/22/25
Time Specimen was Collected: 11:01
01/22/25 12:56
Lacosamide [Vimpat] 200 mg IV NOW STA
01/22/25 20:00
Lacosamide [Vimpat] 200 mg IV Q12H
Abnormal Lab Results
01/22/25 01/22/25 01/22/25
10:02 11:21 11:49
WBC 14.7 H 10^3/uL
(4.8-10.8)
RBC 3.64 L 10^6/uL
(4.70-6.10)
Hgb 12.1 L g/dL
(13.0-18.0)
Hct 35.7 L %
(39.0-52.0)
MCV 98.1 H fL
(80.0-94.0)
MCH 33.2 H pg
(27.0-31.0)
Abs Immat Gran (auto) 0.1 H 10^3/uL
(0-0.05)
Absolute Neuts (auto) 11.7 H 10^3/uL
(1.4-6.5)
Absolute Monos (auto) 1.2 H 10^3/uL
(0.1-0.6)
Neutrophils % 79.7 H %
(42.2-75.2)
Lymphocytes % 11.6 L %
(20.5-51.1)
pH 7.58 H
(7.35-7.45)
pCO2 30 L mmHg
(35-48)
pO2 207 H mmHg
(83-108)
HCO3 28.1 H mmol/L
(21-28)
ABG O2 Sat (Measured) 100.0 H %
(94-98)
Chloride 96 L mmol/L
(98-107)
BUN 37 H mg/dl
(9-20)
Glucose 198 H mg/dl
(70-99)
Lactic Acid 3.3 H mmol/L
(0.7-2.0)
Creatine Kinase < 20 L U/L
(55-170)
Total Protein 9.2 H g/dl
(6.3-8.2)
Ur Occult Blood Reflex
Leukocyte Esterase Rfl
Urine RBC
Urine WBC (Reflex)
Urine Bacteria (Reflex)
Urine Albumin (Reflex)
06/25/25
12:34
WBC
RBC
Hgb
Hct
MCV
MCH
Abs Immat Gran (auto)
Absolute Neuts (auto)
Absolute Monos (auto)
Neutrophils %
Lymphocytes %
pH
pCO2
pO2
HCO3
ABG O2 Sat (Measured)
Chloride
BUN
Glucose
Lactic Acid
Creatine Kinase
Total Protein
Ur Occult Blood Reflex 3+ A
(Negative)
Leukocyte Esterase Rfl 3+ A
(Negative)
Urine RBC 7-10 A /HPF
(0-2)
Urine WBC (Reflex) 80-90 A /HPF
(0-5)
Urine Bacteria (Reflex) Moderate A
(Negative)
Urine Albumin (Reflex) 3+ A
(Neg - Trace)
01/22/25 10:02
01/22/25 10:02
Vital Signs
Initial and Last Documented VS:
Initial Vital Signs
Temp Pulse Resp BP Pulse Ox
99.5 F 89 20 175/70 97
01/22/25 09:23 01/22/25 09:23 01/22/25 09:23 01/22/25 09:23 01/22/25 09:23
Last Documented Vital Signs
Temp Pulse Resp BP Pulse Ox
103.1 F H 79 20 105/50 100
01/22/25 10:21 01/22/25 13:35 01/22/25 13:35 01/22/25 13:35 01/22/25 13:35
<Jhon Ley MD - Last Filed: 01/22/25 10:10>
Orders/Labs/Results
Orders:
Orders
01/22/25 Breakfast
NPO
Reason for opting out of Paint Pourer order writing: Provider Decision
Allow oral meds: No
Allow clear liquids: No
01/22/25 09:33
EEG [Rapid Point of Care EEG (ED/ICU ONLY)] Q1H
Indications for use:: Altered Mental Status
01/22/25 09:38
0.9% Sodium Chloride 1000 ml [Nss] 1,000 ml IV BOLUS
Acetaminophen [Tylenol/Feverall] 650 mg RECTAL NOW STA
01/22/25 09:39
CR Chest Portable - 1 View Urgent
Comment:
Reason For Exam: fever, AMS
Reason Study Needs to be Portable: Unable to Transport
01/22/25 09:40
Electrocardiogram (*1) Urgent
Reason for Study: Bradycardia / Tachycardia
EKG- Treatment ONCE
01/22/25 09:56
Propofol 1,000,000 Mcg/100 ml [Diprivan] 1,000,000 mcg in 100 ml .ROUTE .STK-MED
01/22/25 10:02
Ammonia Urgent
COVID-19 Antigen Urgent
Source: Nasal Swab
CPK [Creatine Phosphokinase] Urgent
Complete Blood Count/With Diff Urgent
Comprehensive Metabolic Panel Urgent
Lactic Acid Q4H
Comment: CANCEL 2nd LACTIC ACID IF 1st LACTIC ACID IS LESS THAN 2
PTT Urgent
Prothrombin Time Urgent
Blood Culture Q30M
MISHA Source: Blood/Venous
Specimen Description:
01/22/25 10:06
ASA Classification Routine
Propofol [Diprivan] 50 mg IV NOW STA
01/22/25 10:07
NEUROLOGY CONSULT Urgent
Consulting Provider: Edward Edouard
Was physician already notified: Yes
ASA Classification Routine
Propofol 1,000,000 Mcg/100 ml [Diprivan] 1,000,000 mcg in 100 ml IV NOW
Indication:: Light Sedation
Begin Infusion:: Now
Goal:: RASS 0 to -2
Maximum dose in mcg/kg/min:: 50
Initial dose based on RASS:: Yes
If RASS is:: +1 or pt hemodynamically unstable (SBP < 90mmHg), initiate at 10 mcg/kg/min
If RASS is:: +2, initiate at 20 mcg/kg/min
If RASS is:: greater than or equal to +3, initiate at 30 mcg/kg/min
Titration Instructions:: Titrate by 5-10 mcg/kg/min every 5 minutes until RASS 0 to -2 achieved.
Taper Instructions:: If RASS is at or below goal for 4 consecutive hours decrease infusion by
Taper Instructions:: 5-10 mcg/kg/min every 2 hours to off.
Over-sedation Instructions:: If CPOT 0-2 (at goal) AND RASS -3 to -5 (below goal) decrease sedative by
Over-sedation Instructions:: 50% first. If pain score remains at goal and RASS remains below goal in
Over-sedation Instructions:: 1 hour, decrease opioid infusion by 50%.
Notify provider:: immediately if patient exhibits signs/symptoms of propofol-related
Notify provider:: infusion syndrome.
Additional Instructions:: Patient MUST be mechanically ventilated and MUST receive analgesia.
Propofol [Diprivan] 50 mg IV NOW STA
Propofol [Diprivan] 20 ml .ROUTE .STK-MED
01/22/25 10:08
CT Head W/o Iv Contrast Urgent
Comment:
Reason For Exam: seizures
Metoprolol [Lopressor] 5 mg IV NOW STA
01/22/25 10:21
EEG Routine Urgent
Reason for Exam: change in mental status
01/22/25 10:35
CR Chest Portable - 1 View Urgent
Comment:
Reason For Exam: R IJ attempt; r/o pneumothorax
Reason Study Needs to be Portable: Unable to Transport
01/22/25 10:42
Blood Culture Q30M
MISHA Source: Blood/Venous
Specimen Description:
01/22/25 11:21
ABG [Arterial Blood Gas] Urgent
%Oxygen/Room Air: 97
01/22/25 11:49
Lactic Acid Urgent
PTT Urgent
Piperacillin/Tazo 3.375 Gram [Zosyn] 3.375 gram in 50 ml IV NOW
01/22/25 11:53
Code Status As Directed
Resuscitation Status: Full Code
Activity As Directed
Activity Level: Bedrest
Notify MD As Directed
Notify physician if: Bridge Admission orders placed.
Notify attending physician:
-- upon arrival to unit
OR
-- when patient is identified as an ED hold
Pneumatic Compression Sleeves As Directed
Type: Knee high
Vital Signs As Directed
Frequency: Per unit guidelines
O2 Therapy [RESP] Routine
Titrate/Wean O2 to maintain O2 sat greater than (%): 92
01/22/25 11:54
DX Deep Vein Thrombosis Video Routine
01/22/25 12:00
Triglycerides Routine
Comment: baseline levels with propofol infusion
Vancomycin [Vancocin] 1,500 mg 0.9% Sodium Chloride 500 ml [Nss] 500 ml IV NOW
01/22/25 12:15
Bowden Placement- Treatment ONCE
Reason for insertion: I&O's Critical Care
01/22/25 12:34
Urinalysis Reflex To Culture Urgent
Date Specimen was Collected: 01/22/25
Time Specimen was Collected: 11:01
Urine Microscopic Reflex Cult Urgent
Urine Culture Urgent
MISHA Source: U
Specimen Description:
Date Specimen was Collected: 01/22/25
Time Specimen was Collected: 11:01
01/22/25 12:56
Lacosamide [Vimpat] 200 mg IV NOW STA
01/22/25 20:00
Lacosamide [Vimpat] 200 mg IV Q12H
Abnormal Lab Results
01/22/25 01/22/25 01/22/25
10:02 11:21 11:49
WBC 14.7 H 10^3/uL
(4.8-10.8)
RBC 3.64 L 10^6/uL
(4.70-6.10)
Hgb 12.1 L g/dL
(13.0-18.0)
Hct 35.7 L %
(39.0-52.0)
MCV 98.1 H fL
(80.0-94.0)
MCH 33.2 H pg
(27.0-31.0)
Abs Immat Gran (auto) 0.1 H 10^3/uL
(0-0.05)
Absolute Neuts (auto) 11.7 H 10^3/uL
(1.4-6.5)
Absolute Monos (auto) 1.2 H 10^3/uL
(0.1-0.6)
Neutrophils % 79.7 H %
(42.2-75.2)
Lymphocytes % 11.6 L %
(20.5-51.1)
pH 7.58 H
(7.35-7.45)
pCO2 30 L mmHg
(35-48)
pO2 207 H mmHg
(83-108)
HCO3 28.1 H mmol/L
(21-28)
ABG O2 Sat (Measured) 100.0 H %
(94-98)
Chloride 96 L mmol/L
(98-107)
BUN 37 H mg/dl
(9-20)
Glucose 198 H mg/dl
(70-99)
Lactic Acid 3.3 H mmol/L
(0.7-2.0)
Creatine Kinase < 20 L U/L
(55-170)
Total Protein 9.2 H g/dl
(6.3-8.2)
Ur Occult Blood Reflex
Leukocyte Esterase Rfl
Urine RBC
Urine WBC (Reflex)
Urine Bacteria (Reflex)
Urine Albumin (Reflex)
01/22/25
12:34
WBC
RBC
Hgb
Hct
MCV
MCH
Abs Immat Gran (auto)
Absolute Neuts (auto)
Absolute Monos (auto)
Neutrophils %
Lymphocytes %
pH
pCO2
pO2
HCO3
ABG O2 Sat (Measured)
Chloride
BUN
Glucose
Lactic Acid
Creatine Kinase
Total Protein
Ur Occult Blood Reflex 3+ A
(Negative)
Leukocyte Esterase Rfl 3+ A
(Negative)
Urine RBC 7-10 A /HPF
(0-2)
Urine WBC (Reflex) 80-90 A /HPF
(0-5)
Urine Bacteria (Reflex) Moderate A
(Negative)
Urine Albumin (Reflex) 3+ A
(Neg - Trace)
01/22/25 10:02
01/22/25 10:02
Vital Signs
Initial and Last Documented VS:
Initial Vital Signs
Temp Pulse Resp BP Pulse Ox
99.5 F 89 20 175/70 97
01/22/25 09:23 01/22/25 09:23 01/22/25 09:23 01/22/25 09:23 01/22/25 09:23
Last Documented Vital Signs
Temp Pulse Resp BP Pulse Ox
103.1 F H 79 20 105/50 100
01/22/25 10:21 01/22/25 13:35 01/22/25 13:35 01/22/25 13:35 01/22/25 13:35
Procedures
<Stevan Dai PA-C - Last Filed: 01/22/25 13:45>
Intubations
Procedure completed by: Osmany
Method of Intubation: glidescope
Tube size (cm): 7.5
Placement confirmed by: auscutation, CXR, capnography and direct visualization
Breath sounds after intubation: equal
Intubation complications: no complications
Central Line
Right Internal jugular:
Indication for procedure:: ICU level of care
Procedure completed by: Osmany
Consent form signed: No
If no, reason: Emergency procedure
Anesthesia: 1% Lidocaine
Central line lumen: triple
Number of attempts: 2
Central line complications: unable to insert line
Right Femoral:
Indication for procedure:: ICU level of care
Procedure completed by: Osmany
Consent form signed: No
If no, reason: Emergency procedure
Anesthesia: 1% Lidocaine
Central line lumen: triple
Number of attempts: 1
Central line complications: unable to insert line
<Stevan Dai PA-C - Last Filed: 01/22/25 13:45>
MDM/Problems Addressed
Differential Diagnosis Includes:
- Breakthrough seizure
- Meningitis/encephalitis considered however given recent LP with no infectious etiology found much less likely
- Viral syndrome
- Pneumonia
- Urinary tract infection
- Metabolic encephalopathy
- Aspiration
- Electrolyte imbalance yeah
MDM/Problems Addressed:
84-year-old male presenting to the ER for evaluation of reported change in mental status since last night, questionable seizure-like activity at home. unable to transport the patient so contacted EMS. On arrival patient found to be
significantly febrile, altered mental status with possible seizure-like activity already. Patient is minimally responsive although did grunt when I said his name but was not following commands. Sepsis workup initiated. Ativan ordered for
potential seizure as well as a stat EEG order. Will consult with neuroteam. Anticipate admission.
Chronic conditions affecting care: Neurological disorder
Acute Exacerbation and/or Progression of Chronic Illness: Neurological disorder
<Stevan Dai PA-C - Last Filed: 01/22/25 13:45>
*Pulse Oximetry
SaO2: 88
Oxygen Mode of Delivery: Room air
Patient hypoxic: yes
*Critical Care Note
Total Time (30-74mins, 75-104mins- exclusive of procedures): 70
comment:
Critical care statement: A total of 70 minutes of critical care time was provided for this patient. This includes management of unstable vital signs, evaluation of the patient at bedside, reviewing the patient's pertinent medical records, discussion
with consultants, review of old EKGs and review of pertinent medical records. This time with separate from time utilized to perform the aforementioned documented procedures
Data Reviewed
Review of Other/Old Records Reveals: Labs, Records, Radiology Studies and Discharge Summary
Source: records and spouse
<Stevan Dai PA-C - Last Filed: 01/22/25 13:45>
Patient Management
Discussion with other providers: Hospitalist and Yarn Examiner Skeins
Escalation/DeEscalation of care consider admission/obs:
Please see attending note for further details. Shortly after my initial evaluation I was immediately called back to the bedside as patient had further seizure like activity, proceeded to have large-volume nonbloody nonbilious emesis with concern
for airway compromise/aspiration pneumonia. Airway suctioned and placed on a nonrebreather. Patient was intubated without any difficulty as above. Multiple attempts for central line placement were unsuccessful. We were able to obtain peripheral
access. Neurology team was consulted and ultimately recommended transfer given patient's chronic condition as well as difficulty in treating his seizures however states she does not wish for the patient to be transferred so patient will be
admitted here. Hospitalist team was notified and accepts for continued evaluation and treatment
ED Attending Note
<Stevan Dai PA-C - Last Filed: 01/22/25 13:45>
-
Portions of this chart may have been created with voice recognition software.� Occasional wrong word or��sound alike� substitutions may have occurred due to the inherent limitations of voice recognition software.
<Jhon Ley MD - Last Filed: 01/22/25 10:10>
ED Attending Note
Patient seen and examined by attending physician: Yes
ED Attending Note:
I have seen and evaluated the patient with a [id number] encounter. I have spoken to the advance practicer provider and involved in the medical history, the physical exam, medical decision making.
Evaluation and management service: agree unless noted differently below.
Results interpretation: agree unless noted differently below.
Focused HPI: 84-year-old male with extensive medical history as documented for recent admission for seizures/status epilepticus presents to the ER for evaluation of seizure. Had a seizure last night and still altered on arrival here. During my
initial assessment patient actively seizing, vomiting and hypoxic.
Physical exam: Patient actively seizing, vomiting. Hypoxic to the 80s. Tachycardic and hypertensive.
Medical Decision Makin-year-old male with recent admission for seizures presents for seizures. Actively seizing during my assessment, vomiting not protecting his airway. An IO was placed for emergent access and he was given Ativan. Airway
suctioned and repositioned, supplemental oxygen applied. No improvement and he was prepared for rapid sequence intubation and procedure performed as document in procedure note under my direct supervision. Will need to place central venous catheter
for difficult IV access. Start propofol. Will order EEG, CT head, usual labs. Plan for ICU admission.
Case discussed with neurology recommending transfer to tertiary center� will reach out to [facility] for transfer.
Discharge Plan
Departure
Patient Disposition: Admit
Date of Disposition: 01/22/25
Time of Disposition: 11:03
Presentation/result/management discussed w/ accepting MD/DO: Hospitalist
Discharge Problem:
Altered mental status, Fever, Seizure
Prescriptions:
No Action
minoxidil 10 mg Tablet
10 mg PO BID
furosemide 40 mg Tablet
40 mg PO DAILY
warfarin 1 mg Tablet
5.5 mg PO QPM
Patient Comments:
INR DRAWN 01/21/25 DOSE ADJUSTED AND PATIENT TO STOP LOVENOX ON Monday01.20.25
cyanocobalamin (vitamin B-12) 1,000 mcg tablet
1,000 mcg PO DAILY
pantoprazole 40 mg tablet,delayed release (DR/EC)
40 mg PO DAILY
clonidine 0.2 mg/24 hr patch weekly
0.2 mg transdermal WE 30 Days Qty: 4 0RF
Rx Instructions:
CHANGE AND PLACED ON 01/22/25
amlodipine 2.5 mg Tablet
2.5 mg PO DAILY
carbamazepine 200 mg tablet extended release 12 hr
400 mg PO BID
levetiracetam 500 mg tablet
1,750 mg PO BID
lorazepam 1 mg tablet
1 mg PO Q6HPRN PRN (Reason: anxiety)
silodosin 8 mg Capsule
8 mg PO QPM
lacosamide 200 mg Tablet
200 mg PO BID 30 Days Qty: 60 0RF
Xcopri 25 mg Tablet
25 mg PO HS
Patient Comments:
PATIENT HAS FREE SAMPLES
ondansetron HCl 4 mg tablet
4 mg PO BIDPRN PRN (Reason: NAUSEA)
carbamazepine 100 mg tablet extended release 12 hr
200 mg PO BID
Rx Instructions:
Take 200 mg BID plus the 400 mg BID you were already taking, total of 600 mg BID
cenobamate 200 mg tablet
200 mg PO HS
Interventions
Interventions:
*Risk Screen - Suicide Last Done: 01/22/25 10:30
*General Assessment Last Done: 01/22/25 11:52
*Neglect/Abuse Screening Last Done: 01/22/25 10:30
*ED- Fall Risk Assessment Last Done: 01/22/25 11:52
*ED COVID-19 Vaccine History Last Done: 01/22/25 11:52
ED- Cardiac Assessment Last Done: 01/22/25 13:33
ED- Neurological Assessment Last Done: 01/22/25 12:30
ED- Pulmonary Assessment Last Done: 01/22/25 11:36
Discharge Date and Time
Print Language: MALTESE
[2025-01-22] MEDS: DIPRIVAN 50 MG IV ×2 (10:10→10:19)
[2025-01-22 10:14] LABS: Hematocrit 35.7 % (39.0-52.0); Hemoglobin 12.1 g/dL (13.0-18.0); Mean Corp Hgb Conc. 33.9 g/dL (33.0-37.0); Mean Corpuscular Volume 98.1 fL (80.0-94.0); Nucleated Red Blood Cells % 0 % (-); Platelet Count 379 10^3/uL (130-400); Red Cell Dist. Width 12.3 % (11.5-14.5)
[2025-01-22] MEDS: DIPRIVAN 100 IV (10:19)
[2025-01-22] MEDS: NSS 1000 IV (10:19)
--- NOTE | 2025-01-22 10:23 | CON.NEURO4 ---
Addendum entered and electronically signed by Edward Edouard MD 01/22/25 16:49:
Studies reviewed.
I agree with the findings by the nurse practitioner listed below and these are my addenda:
Intubated. Patient does spontaneously move all extremities and gags with coughing at times. No acute distress. No tremor. Negative doll's eyes
Funduscopic exam unremarkable. Pupils unresponsive to light.
Reflexes absent.
Impression/recommendations:
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
He has failed combined therapy of levetiracetam, lacosamide, carbamazepine, valproic acid, and Cenobamate at 200 mg. Currently, it is unclear if the patient has been having continuous seizures after recent discharge and now developed an infectious
etiology for recurrent seizures or if the patient has had dysphagia leading to pneumonia
Patient should be continued on his usual antiseizure medications at their recent levels
Check carbamazepine level
Check levetiracetam level although most likely will be delayed in its return
Check EEG, completed
Advance Cenobamate dosing from 225 mg to 250 mg using the patient's outpatient supply of the medication
We will follow
Original Note:
Consultation - Neurology 4
-
CONSULTING PHYSICIAN: Edward Edouard MD
REFERRING PHYSICIAN: ER/Dr. Ley
DICTATED BY: ANNE Sebastian
DATE/TIME OF REQUEST: 01/22/25
DATE/TIME OF CONSULTATION: 01/22/25
Reason for Consultation: Change in mental status
History of Present Illness:
This is an 84-year-old male who has presented to the hospital on 01/22/25 with report of change in mental status. Patient is well known to our Neurology practice as an inpatient and outpatient for an extensive history of epilepsy.
From [facility] outpatient Neurology Records:
'Had hospitalization in December/January 2023 where he presented with vomiting, hypoxia, then had non-convulsive status epilepticus requiring aggressive anti seizure medication treatment including Lacosamide, Levetiracetam, and Carbamazepine. He did
require intubation with respiratory function worsening a few hours after admission. Carbamazepine level on admit was 17.8. Prior to hospitalization he had been on Levetiracetam and Carbamazepine and had been about 1 year previous in December 2021, he
had been on Levetiracetam 750 mg BID and Carbamazepine 900 mg BID prior to the hospitalization. He has had a history of epilepsy since age 4 when he had meningitis.
He is accompanied by his today. Says he is doing pretty well. No seizures since discharge from hospital in January 2023.
Making improvements with walking, still using some assistance with walker but much better. Doing dedicated physical exercise.
When walking unaided not getting dizzy, once when stood up too fast got a little bit dizzy.
Current seizure medications and doses
Carbamazepine 600 mg BID
Levetiracetam 1500 mg BID
Lacosamide 100 mg BID
Previous seizure medications:
Valproic acid, Levetiracetam, Lacosamide
Since last evaluation:
10/2023
Lacosamide, started Cenobamate, now 12.5 mg
No longer having fogginess since last re-hospitalization in 10/2023
Tolerating medication well
Short-term memory issues
From evaluation with Carly Bhavna, 01/09/2024:
'Pt seen in the office today with his . He has been seizure free since starting and increasing Cenobamate.
He continues on
Carbamazepine 800 mg BID
Levetiracetam 1500 mg BID
Cenobamate 150 mg daily-this will increase to 200 mg daily next week
He reports memory has been stable.
No new falls or confusion. No new neurologic complaints.'
05/23: Today is my first time seeing him. Reports having STM issues for about one year. It has been particularly worse the past few months. He repeats the same questions over and over. He went on a trip to [place] and missed his medications the second
day. He was confused 1-2 hours that day and then was also confused the following day.
Tegretol level on 01/16/24 was normal at 9.9.
(08/05/2024)
Pt encounter via telemedicine.
He has been seizure free.
He continues on
Levetiracetam 1750 mg BID
Carbamazepine 800 mg BID
Cenobamate 200 mg daily
They would like to continue on current medication regimen and has no adverse side effects, however Cenobamate is over 300.00 a month, and they have not qualified for financial assistance.
They are planning to try and reapply for assistance.
Of note, he was in the hospital in June for UTI, did have some confusion but known seizure activity.
(12/26/2024)
Pt seen in the office today with his . Since his last visit he was in the hospital 12/13/2024 with change in mental status and was found to have diverticulitis. It was though he had possible breakthrough seizure activity. No overt seizure
activity.
Ct head with no acute intracranial abnormality.
He continues on:
Levetiracetam 1750 mg BID
Carbamazepine 800 mg BID
Cenobamate 200 mg daily
He is doing well. Memory has been stable if not has improved.
Today 01/21/2025
Patient encounter via telemedicine. Since his last appointment he was readmitted to the hospital on 12/27/2024 with status� epilepticus. He was discharged 01/17/2025. He had multiple adjustments in medications. He also had a lumbar puncture which was
not conclusive for any autoimmune cause of seizures. Carbamazepine was increased to 500 mg twice a day. Lacosamide was added 200 mg twice a day. He was continued on Keppra 1750 mg twice a day. Cenobamate has now been increased to 225 mg daily with a
titration goal of 400 mg daily. Since discharge, he has been weak. He is having difficulty getting out of bed. He is very lethargic. He has not had any had a fever. He has not had any overt seizure activity. He is able to tolerate his medications.
CT of the head completed 12/27/2024 showed no acute abnormality, mild atrophy, mild periventricular small vessel ischemic disease.'
Overnight, patient had a witnessed generalized seizure and this morning was somnolent. EMS was called and patient was found to be febrile to 103F in the ER. Patient then had witnessed seizure activity in the ER with emesis and was ultimately
intubated. Vimpat 200mg IV x1 was provided. EEG was placed and demonstrates a continuous bihemispheric burst suppression pattern.
Past Medical History: Afib (Coumadin), seizure disorder since meningitis at age 4, R internal capsule and left frontal lacunar infarcts and microhemorrhages, dementia, RUL adenocarcinoma s/p resection, CHF, aortic stenosis, HTN, HLD, COREY
(noncompliant cpap), asthma, melanoma, colon polyps, CKD, iron deficiency anemia, cervical stenosis
Surgical History: RUL lung resection 2014, uvulectomy, melanoma excision
Family History: Brother- Cerebral aneurysm
Social History: No tobacco, alcohol, or illicit drug use.
Allergies: Hydralazine, pollen.
Home Medications: See below.
Review of Symptoms:
Per the HPI. I am unable to obtain a complete review of systems�because of patient's inability to provide history.
Physical Exam:
The patient is febrile, appears chronically ill, intubated and sedated on propofol, skin is cool and dry, no edema.
Neurologic Examination:
The patient is intubated and sedated on propofol. Does not follow any commands. Eyes open slightly to pain/grimaces. On cranial nerve assessment, pupils are 3 mm bilateral, round and reactive to light and accommodation. +Roving eye movements. RASHIDA
visual costa. No apparent facial asymmetry. RASHIDA hearing. RASHIDA tongue. 0/5 motor response to pain in all extremities. No involuntary movement noted. Deep tendon reflexes are absent, Babinski is absent bilaterally. RASHIDA coordination.
Lab Results: See below.
Neuro Imaging: None.
Differentials for the patient's presentation include:
1. Refractory epilepsy with breakthrough seizures.
2. Fever.
Patient has the following risk factors for their symptoms: Refractory epilepsy.
Recommendations:
-Continue lacosamide 200mg IV q12 hours.
-Recommended transfer to a tertiary center due to refractory epilepsy, family has refused.
-Supportive care.
-Will follow.
Discussed patient care with: Dr. Edouard, Dr. Ley, Stevan Dai
Vital Signs and Labs
-
Vital Signs and Labs:
Vital Signs
Temp Pulse Resp BP Pulse Ox
103.1 F H 79 15 130/56 100
01/22/25 10:21 01/22/25 14:15 01/22/25 14:15 01/22/25 14:15 01/22/25 14:15
Lab Results
01/22/25 10:02
01/22/25 10:02
PT Cancelled 01/22/25 10:02
INR Cancelled 01/22/25 10:02
APTT 34.7 Sec (23.4-35.0) 01/22/25 11:49
Sodium 141 mmol/L (135-145) 01/22/25 10:02
Potassium 5.0 mmol/L (3.5-5.1) 01/22/25 10:02
BUN 37 mg/dl (9-20) H 01/22/25 10:02
Glucose 198 mg/dl (70-99) H 01/22/25 10:02
Calcium 9.6 mg/dl (8.4-10.2) 01/22/25 10:02
Medications
-
Active Medications
Generic Name Dose Route Start Last Admin
Trade Name Freq PRN Reason Stop Dose Admin
Heparin Sodium 5,000 units 01/22/25 20:00
Heparin 5,000 Units/Ml 1 Ml Vial SC 02/19/25 19:59
Q12 VIRAJ
Lacosamide 200 mg 01/22/25 20:00
Lacosamide (10 Mg/Ml) 200 Mg/20 Ml Vial IV 02/05/25 19:59
Q12H VIRAJ
Pantoprazole Sodium 40 mg 01/23/25 08:00
Pantoprazole Sodium 40 Mg/10 Ml Vial IV 02/20/25 07:59
DAILY VIRAJ
Home Medications
�Medication �Instructions �Recorded
minoxidil 10 mg tablet 10 mg PO BID Blood Pressure 01/22/23
cyanocobalamin (vitamin B-12) 1,000 mcg PO DAILY Supplement 10/17/23
1,000 mcg tablet
furosemide 40 mg tablet 40 mg PO DAILY Fluid 10/17/23
Retention/Swelling
pantoprazole 40 mg tablet,delayed 40 mg PO DAILY Gastrointestinal 10/17/23
release Issue
warfarin 1 mg tablet 5.5 mg PO QPM Blood Clot 10/17/23
Prevention/Tx
clonidine 0.2 mg/24 hr weekly 0.2 mg transdermal WE Blood 05/29/24
transdermal patch Pressure 30 days #4 ea
amlodipine 2.5 mg tablet 2.5 mg PO DAILY Blood Pressure 07/15/24
carbamazepine 200 mg 400 mg PO BID TOTAL 600MG BID 07/15/24
tablet,extended release,12 hr
levetiracetam 500 mg tablet 1,750 mg PO BID seizures 07/15/24
lorazepam 1 mg tablet 1 mg PO Q6HPRN PRN anxiety 07/15/24
silodosin 8 mg capsule 8 mg PO QPM Urinary Issue 10/24/24
lacosamide 200 mg tablet 200 mg PO BID 30 days #60 tabs 01/16/25
carbamazepine 100 mg 200 mg PO BID TOTAL 600MG BID 01/22/25
tablet,extended release,12 hr
cenobamate 200 mg tablet 200 mg PO HS TAKE WITH 25MG 01/22/25
cenobamate 25 mg tablet (Xcopri) 25 mg PO HS TAEK WITH 200MG 01/22/25
ondansetron HCl 4 mg tablet 4 mg PO BIDPRN PRN NAUSEA 01/22/25
[2025-01-22 10:24] LABS: Ammonia 19 umol/L (9-30)
[2025-01-22 10:31] LABS: COVID-19 Antigen Negative (Negative)
[2025-01-22 10:32] LABS: ALT (SGPT) 23 U/L (0-50); AST (SGOT) 29 U/L (17-59); Albumin 4.3 g/dl (3.5-5.0); Alkaline Phosphatase 70 U/L (38-126); Blood Urea Nitrogen 37 mg/dl (9-20); Calcium 9.6 mg/dl (8.4-10.2); Carbon Dioxide 30 mmol/L (22-30); Chloride 96 mmol/L (98-107); Glucose 198 mg/dl (70-99); Potassium 5.0 mmol/L (3.5-5.1); Sodium 141 mmol/L (135-145); Total Protein 9.2 g/dl (6.3-8.2); eGFR 54.85
--- NOTE | 2025-01-22 10:46 | EDRN ---
Pt is awake. He is non verbal. He does not follow commands. his posturing is tight and hyper flexed upper arms. tremors/ seizures?
[2025-01-22] MEDS: TYLENOL/FEVERALL 650 MG RECTAL (11:20)
[2025-01-22 11:30] LABS: B.E. 6.6 mmol/L; HCO3 28.1 mmol/L (21-28); O2 Saturation % 100.0 % (94-98); PCO2 30 mmHg (35-48); PO2 207 mmHg (83-108)
[2025-01-22 12:15] LABS: APTT 34.7 Sec (23.4-35.0)
[2025-01-22] MEDS: ZOSYN 50 IV ×3 (12:30→23:24)
[2025-01-22 12:36] LABS: Triglycerides 108 mg/dl (10-149)
[2025-01-22 12:42] LABS: Urine Character Cloudy (Clear)
[2025-01-22] MEDS: VANCOCIN 530 MG IV (12:44)
[2025-01-22 13:01] LABS: Urine Urothelial Cell 0-2 /LPF (FEW)
[2025-01-22 13:02] LABS: Urine White Cell 80-90 /HPF (0-5)
[2025-01-22] MEDS: VIMPAT 200 MG IV ×2 (13:16→19:33)
--- NOTE | 2025-01-22 14:28 | EEG.RPT ---
Electroencephalogram Report
Recording
Date of EE01/22/25
Type of EEG: Routine
Length of EEG recordin minutes
Done with Video Recording: Yes
Patient Status: Emergency Room
Recording Conditions: Drowsy and Asleep
Hyperventilation Performed: No
Photic Stimulation Performed: Yes
Report
LESS THAN 1 HOUR ELECTROENCEPHALOGRAPHER IMPRESSION(S):
Moderately to severely abnormal study for age based on bihemispheric burst-suppression pattern continuously during the study.
CLINICAL CORRELATION:
Although normative values not been established for a person of this advanced age, this study was suggestive of significant bihemispheric dysfunction which may have several causes including metabolic disturbances and anoxia.
Clinical correlation is advised.
METHODS:
A 21 channel digitized electroencephalogram (EEG) was performed at the bedside. The 10/20 international system of electrode placement was used with ECG and lateral/vertical eye movements recorded. Video was recorded. The [employer] quantitative EEG
system was utilized.
Quality of study
Fair to good
Background
Poorly organized bursts of electrical activity of up to 6 seconds was at maximum of theta, typically delta, frequency with a poor anterior to posterior gradient.
Bursts of activity were of medium amplitude usually approximately 1 second in duration.
A burst-suppression pattern with suppressions of up to 3 seconds were demonstrated.
Sleep
Unable to discern
Hyperventilation
Not performed
Photic Stimulation
Failed to activate the record
ECG
Normal rhythm
--- NOTE | 2025-01-22 14:47 | HPS.HSE ---
Family Physician
-
Family Physician: Robin Garcia
Chief Complaint
-
Altered mental status, seizures
History of Present Illness
84-year-old male presented to the ER with altered mental status, seizures. Patient has a past medical history of epilepsy, hypertension, hyperlipidemia, lung cancer�s/p lobectomy in 2015 in remission, paroxysmal A-fib on Coumadin, TIA. Patient was
recently admitted in for status epilepticus (12/27/2024 to 01/17/2025). Patient's reports that after getting discharged in the past 1 week, the patient's mental status has been waxing and waning, appeared confused sometimes but was back to
baseline. No fevers, weakness/numbness/tingling that the patient reported to his in the past 5 days. Last night patient had 3 episodes of seizures each lasting approximately 2 minutes. No postictal paralysis noted, but she mentioned that
these episodes were not the same as before. In the morning patient had breakfast and later became unresponsive, and somnolent. Patient was brought to the ER via EMS. In the ER patient was febrile�103, tachycardic, tachypneic, WBC�14.7. Patient
had witnessed seizure activity with vomiting and was intubated for airway protection.
Medical History
Past Medical History
Past Medical History: Reports Arrhythmia, CHF, CVA (TIA), HTN and Hypercholesterolemia
Additional Past Medical History:
Lung cancer
Past Surgical History: Reports Other (Lobectomy of the right lung)
Additional Past Surgical History:
Lobectomy for lung cancer
Social History
Tobacco: Non-smoker
Alcohol: None
Drug: None
Personal:
Living: With Family
Family History
Family History: Not pertinent
Allergies / Home Medications
Allergies reflects when Allergies were last updated in [employer].
Home Medications with original date entered in [employer]
Allergy/Medication List:
Allergies
Allergy/AdvReac Type Severity Reaction Status Date / Time
hydralazine Allergy Unknown Verified 01/22/25 09:44
pollen extracts Allergy nasal Verified 01/22/25 09:44
symptoms
Home Medications
minoxidil 10 mg tablet 10 mg PO BID Blood Pressure 01/22/23
cyanocobalamin (vitamin B-12) 1,000 mcg tablet 1,000 mcg PO DAILY Supplement 10/17/23
furosemide 40 mg tablet 40 mg PO DAILY Fluid Retention/Swelling 10/17/23
pantoprazole 40 mg tablet,delayed release 40 mg PO DAILY Gastrointestinal Issue 10/17/23
warfarin 1 mg tablet 5.5 mg PO QPM Blood Clot Prevention/Tx 10/17/23
clonidine 0.2 mg/24 hr weekly transdermal patch 0.2 mg transdermal WE Blood Pressure 30 days #4 ea 05/29/24
amlodipine 2.5 mg tablet 2.5 mg PO DAILY Blood Pressure 07/15/24
carbamazepine 200 mg tablet,extended release,12 hr 400 mg PO BID TOTAL 600MG BID 07/15/24
levetiracetam 500 mg tablet 1,750 mg PO BID seizures 07/15/24
lorazepam 1 mg tablet 1 mg PO Q6HPRN PRN anxiety 07/15/24
silodosin 8 mg capsule 8 mg PO QPM Urinary Issue 10/24/24
lacosamide 200 mg tablet 200 mg PO BID 30 days #60 tabs 01/16/25
carbamazepine 100 mg tablet,extended release,12 hr 200 mg PO BID TOTAL 600MG BID 01/22/25
cenobamate 200 mg tablet 200 mg PO HS TAKE WITH 25MG 01/22/25
cenobamate 25 mg tablet (Xcopri) 25 mg PO HS TAEK WITH 200MG 01/22/25
ondansetron HCl 4 mg tablet 4 mg PO BIDPRN PRN NAUSEA 01/22/25
Review of Systems
-
Unable to obtain full review of systems at this time due to: Patient Intubation
Physical Exam
Vital Signs
Vital Signs
Temp Pulse Resp BP Pulse Ox
103.1 F H 83 15 131/58 100
01/22/25 10:21 01/22/25 14:40 01/22/25 14:40 01/22/25 14:40 01/22/25 14:40
Physical Exam
General: No Apparent Distress and Intubated
HEENT: NormoCephalic, Anicteric and PERRLA
Respiratory: Other (Mechanical breath sound)
Cardiac: S1/S2 and Regular Rhythm
GI: Soft, Non Tender, Non Distended and Normal Bowel Sounds
Skin: Warm and Dry
Neuro: Sedated
Laboratory Results
-
01/22/25 10:02
01/22/25 10:02
Laboratory Results
PT Cancelled 01/22/25 10:02
INR Cancelled 01/22/25 10:02
APTT 34.7 Sec (23.4-35.0) 01/22/25 11:49
pH 7.58 (7.35-7.45) H 01/22/25 11:21
pCO2 30 mmHg (35-48) L 01/22/25 11:21
pO2 207 mmHg (83-108) H 01/22/25 11:21
HCO3 28.1 mmol/L (21-28) H 01/22/25 11:21
Lactic Acid Cancelled 01/22/25 13:45
Total Bilirubin 0.5 mg/dl (0.2-1.3) 01/22/25 10:02
AST 29 U/L (17-59) 01/22/25 10:02
ALT 23 U/L (0-50) 01/22/25 10:02
Alkaline Phosphatase 70 U/L (38-126) 01/22/25 10:02
Impression/Plan
-
IMPRESSION:
84-year-old male presenting to the ED with altered mental status/seizures.
PLAN:
#Acute metabolic encephalopathy
#Epilepsy
Likely breakthrough seizures versus infectious etiology versus autoimmune.
Patient intubated for airway protection in the ER after he was vomiting with seizure episode
Continue mechanical ventilation
Patient sedated with propofol, continue
Aspiration precautions, vent adjustments as per bill poster installer
Physics Faculty Member consulted
Neurology consulted
EEG with seizure burden
Recent hospital admission with change in the dosage of seizure medications
Full workup including paraneoplastic etiology done in the previous admission.
Also received 4/5 doses of IVIG at that time.
Will continue the home medications, transition to IV/tube
Lacosamide 200 mg IV every 12
Levetiracetam 1750 mg IV every 12
Carbamazepine 600 mg every 12, tube
Cenobamate increased to to 250 mg, daily , tube (not in formulary, patient's has it, home dose at 225 mg)
CT head pending
Will order MRI brain
Will check with neurology if he needs LP at this time
#Sepsis
#UTI
#Leukocytosis
#Lactic acidosis
Patient septic with WBC 14.7, HR 135, RR 21, temp 103. 1
Continue IV fluids
Continue IV Zosyn, IV Vanco
Monitor fever curve, WBC count
Blood cultures pending
Urinalysis with evidence of UTI, pending cultures
Chest x-ray with no evidence of pneumonia
Will trend lactate
#Heart failure with preserved ejection fraction
Recent echo�12/02/2024�ejection fraction�70%
Patient is septic, will hold furosemide for today
#Paroxysmal A-fib
EKG in ER-A-fib with RVR, rate at 130
On Coumadin�5.5, continue
Check INR
Not on any rate control meds
#Essential hypertension
Will hold amlodipine, minoxidil for today
Diet�patient intubated, NPO
#DVT prophylaxis�warfarin
Full code
Admit to ICU
[2025-01-22 15:28] LABS: INR 3.05; PT 31.9 Sec (11.4-14.6)
--- NOTE | 2025-01-22 15:32 | CON.INTV ---
Consultation
Consultation Request
Date/Time Consultation Requested: 01/22/2025 - 150
Date/Time Consultation Performed: 01/22/2025 - 152
Requesting Provider: Dr. Bailey
Performing Provider: Dr. Canales
Reason for Consultation: Intubated; Status epilepticus
Medical History
-
Chief Complaint: Seizure activity
History of Present Illness:
84-year-old male with a past medical history of right upper lobe lung cancer s/p resection, hyperlipidemia, hypertension, and epilepsy who presents with altered mental status and seizure activity. Patient was recently hospitalized from 12/27 -
01/17/2025 for status epilepticus requiring ICU. He underwent an LP on 01/01 showing elevated protein and was started on IVIG for possible autoimmune contribution to his seizures. He tolerated 4 out of 5 treatments before he had to stop due to nausea
and somnolence. He also had to have his Coumadin held a few times due to supratherapeutic INR. He was discharged home with home care; since being discharged he has been having altered mental status, where he does not speak on certain days or he
does speak but does not make sense. On the evening of 01/21, the patient had a few seizure events, first at around midnight and the second around 2 AM, where he was shaking in bed, with his legs crunched up and even screamed 1 time. He has been
taking his seizure medications and the 's been making sure that it has been taken daily with full compliance. Now since being here in the ER, he had an episode of vomiting and remained lethargic, and had to be intubated for airway protection.
He initially was afebrile to 99.5 �F but then developed a fever to 103.1 �F. He initially was hypertensive to 175/70, saturating 97% on room air with pulse rate 89. After he was intubated, Vimpat 200 mg was provided. EEG was performed and showing
continuous bihemispheric burst suppression pattern. Labs initially showed a lactate of 2.1. UA showed +3 leukocyte esterase with 80�90 urine WBC. Blood and urine cultures collected. CXR showed no signs of pneumonia. CT head showed no acute
intracranial abnormality. In the ER, he was given 1 L NS 0.9%, started on vancomycin, Zosyn and propofol and admitted to the ICU for further care. [facility] services consulted for additional management/recommendations.
When I saw the patient, the patient's , Santa, was present at bedside. Patient's currently on propofol drip at 25 mcg/kg/min. Heart rate 66, BP 101/55 and saturating 99%. Currently intubated on 15/450/40%/5 with PIP 24 cmH2O, VTe 455 cc
and breathing at 15 breaths/min. He remains unresponsive although his corneal reflexes are intact and he is having occasional twitches in his left upper extremity when I am evaluating him.
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
tolerance, history of colon polyps
PSHx: Right upper lobe resection, bilateral cataract surgery
Past Medical History
Past Medical History: Other (Above as per HPI)
Past Surgical History: Other (Above as per)
Social History
Tobacco: Non-smoker
Alcohol: None
Drug: None
Personal:
Living: With Family
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
Family History
Family History: CAD (Mother; brother: in 70s of an [place]) and Other (Brother: of a cerebral aneurysm at age 41)
Allergies / Home Medications
Allergies
Allergy/AdvReac Type Severity Reaction Status Date / Time
hydralazine Allergy Unknown Verified 01/22/25 09:44
pollen extracts Allergy nasal Verified 01/22/25 09:44
symptoms
Home Medications
�Medication �Instructions �Recorded �Confirmed �Last Taken �Type
minoxidil 10 mg tablet 10 mg PO BID Blood Pressure 01/22/23 01/22/25 01/21/25 History
cyanocobalamin (vitamin B-12) 1,000 mcg PO DAILY Supplement 10/17/23 01/22/25 01/21/25 History
1,000 mcg tablet
furosemide 40 mg tablet 40 mg PO DAILY Fluid 10/17/23 01/22/25 01/21/25 History
Retention/Swelling
pantoprazole 40 mg tablet,delayed 40 mg PO DAILY Gastrointestinal 10/17/23 01/22/25 01/21/25 History
release Issue
warfarin 1 mg tablet 5.5 mg PO QPM Blood Clot 10/17/23 01/22/25 01/21/25 History
Prevention/Tx
clonidine 0.2 mg/24 hr weekly 0.2 mg transdermal WE Blood 05/29/24 01/22/25 01/22/25 Rx
transdermal patch Pressure 30 days #4 ea
amlodipine 2.5 mg tablet 2.5 mg PO DAILY Blood Pressure 07/15/24 01/22/25 01/21/25 History
carbamazepine 200 mg 400 mg PO BID TOTAL 600MG BID 07/15/24 01/22/25 01/21/25 History
tablet,extended release,12 hr
levetiracetam 500 mg tablet 1,750 mg PO BID seizures 07/15/24 01/22/25 01/21/25 History
lorazepam 1 mg tablet 1 mg PO Q6HPRN PRN anxiety 07/15/24 01/22/25 Unknown History
silodosin 8 mg capsule 8 mg PO QPM Urinary Issue 10/24/24 01/22/25 01/21/25 History
carbamazepine 100 mg 200 mg PO BID TOTAL 600MG BID 01/22/25 01/22/25 01/21/25 History
tablet,extended release,12 hr
cenobamate 200 mg tablet 200 mg PO HS TAKE WITH 25MG 01/22/25 01/22/25 01/21/25 History
cenobamate 25 mg tablet (Xcopri) 25 mg PO HS TAEK WITH 200MG 01/22/25 01/22/25 01/21/25 History
lacosamide 200 mg tablet 200 mg PO BID Seizures 01/22/25 01/22/25 01/21/25 History
ondansetron HCl 4 mg tablet 4 mg PO BIDPRN PRN NAUSEA 01/22/25 01/22/25 Unknown History
Review of Systems
-
Unable to Obtain full review of systems at this time due to: Patient Intubation
Vitals / Labs / Diagnostic Testing
Vital Signs
Temp Pulse Resp BP Pulse Ox
100.3 F 66 15 101/55 100
01/22/25 16:37 01/22/25 17:00 01/22/25 17:00 01/22/25 17:00 01/22/25 17:00
Lab Data
01/22/25 10:02
01/22/25 10:02
Laboratory Results
01/22/25 01/22/25 01/22/25
10:02 11:21 11:49
PT Cancelled
INR Cancelled
APTT Cancelled 34.7
pH 7.58 H
pCO2 30 L
pO2 207 H
HCO3 28.1 H
O2 Delivery Level Not Reportable
01/22/25
15:09
PT 31.9 H
INR 3.05
APTT
pH
pCO2
pO2
HCO3
O2 Delivery Level
Diagnostic Testing:
Physical Exam
-
HEENT: Normocephalic, Anicteric, Moist Mucous Membranes and Other (ETT in place)
Cardiovascular: S1/S2 and Peripheral Edema (negative)
Respiratory: Clear, Wheeze (negative), Rales (negative), Rhonchi (negative), Non-Labored Respirations and Other (Mechanical breath sounds heard bilaterally)
GI: Soft, Non Distended, Non Tender and Normal Bowel Sounds
Neurology: Tremors (Occasional tremor activity in the left upper extremity when I am evaluating the patient), Other (Pupils 2 mm bilaterally and sluggish) and Other (Intact corneal reflexes bilaterally; sedated)
Skin: Warm and Dry
General: Respiratory Distress (negative), Comfortable, Chills (negative) and Sweats (negative)
Assessment
-
Assessment: 84-year-old male with a past medical history of right upper lobe lung cancer s/p resection, hyperlipidemia, hypertension, and epilepsy who presents with altered mental status and seizure activity. Patient was recently hospitalized from
12/27 - 01/17/2025 for status epilepticus requiring ICU. He underwent an LP on 01/01 showing elevated protein and was started on IVIG for possible autoimmune contribution to his seizures. He tolerated 4 out of 5 treatments before he had to stop due to
nausea and somnolence. He also had to have his Coumadin held a few times due to supratherapeutic INR. He was discharged home with home care; since being discharged he has been having altered mental status, where he does not speak on certain days
or he does speak but does not make sense. On the evening of 01/21, the patient had a few seizure events, first at around midnight and the second around 2 AM, where he was shaking in bed, with his legs crunched up and even screamed 1 time. He has
been taking his seizure medications and the 's been making sure that it has been taken daily with full compliance. Now since being here in the ER, he had an episode of vomiting and remained lethargic, and had to be intubated for airway
protection. He initially was afebrile to 99.5 �F but then developed a fever to 103.1 �F. He initially was hypertensive to 175/70, saturating 97% on room air with pulse rate 89. After he was intubated, Vimpat 200 mg was provided. EEG was performed
and showing continuous bihemispheric burst suppression pattern. Labs initially showed a lactate of 2.1. UA showed +3 leukocyte esterase with 80�90 urine WBC. Blood and urine cultures collected. CXR showed no signs of pneumonia. CT head showed
no acute intracranial abnormality. In the ER, he was given 1 L NS 0.9%, started on vancomycin, Zosyn and propofol and admitted to the ICU for further care. [facility] Recovery Operator services consulted for additional management/recommendations.
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
melanoma, impaired glucose tolerance, history of colon polyps
Impression:
#Status epilepticus
#Ventilator dependent respiratory failure (intubated 01/22/2025)
#Seizure disorder on multiple AEDs
#A-fib on Coumadin, currently NSR
#Hypertension
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
#CKD stage III
#History of melanoma involving the face s/p resection
#Ambulatory dysfunction
#History of COREY/CSA previously on BiPAP , no longer using since October 2020 after significant weight loss
#Mild intermittent asthma
#Aortic stenosis
Plan:
- Patient was found to be in status epilepticus, and since being discharged just a few days ago, he has been acting strange at home, not communicating as he normally does and 1 day prior to arrival was having seizure-like activity in bed, which
appeared to be tonic-clonic movements per the
- Patient was recommended to be transferred to [facility] however the insisted to stay here at [facility] and declined transfer
- Patient is now intubated mainly for airway protection
- Patient currently on propofol which will be weaned down as tolerated
- If the patient does not awaken as expected while propofol is weaned down then would favor an EEG to be performed to assess for nonconvulsive status epilepticus
- Unclear if the patient has an infection that has led to his recurrent seizure
- His CXR does not appear to show any obvious consolidation; his UA does appear abnormal with 80�90 urine WBC, +3 leukocyte esterase
- Continue with broad-spectrum antibiotics (while being careful not to administer antibiotics which will lower the seizure threshold); follow-up urine culture + blood cultures; collects respiratory culture from ETT; consider CT chest tomorrow to
evaluate for pneumonia as he could have some more subtle groundglass opacities versus tree-in-bud which may not be picked up on CXR
- May also benefit from brain MRI if he does not awaken as expected while weaning off of propofol
- In the meantime:
- Continue with mechanical ventilation with daily SAT/SBT if clinically appropriate
- Maintain plateau pressure <30 and titrate FiO2 + PEEP to keep SpO2 >90-94%
- Continue aspiration precautions; keep HOB >30-45�
- prn nebulized bronchodilators - not currently bronchospastic
- Oropharyngeal + deep ETT suctioning with subglottic as needed
- Daily CXR + blood gas
- Daily vent adjustments as needed based on blood gas and SaO2
- Low level of sedation with goal RASS as 0 to -2, however first and foremost, seizures need to be controlled no matter what his RASS level is
- Defer antiepileptics to neurology � currently on Keppra 1750 IV q12hr, Vimpat 200 mg IV q12hr,and Xcopri 225 mg qPM
- Maintain MAP>65
- Replete electrolytes with K>4, Mg>2
- Maintain euglycemia with goal BG 140-180
- Trend H/H and transfuse if needed to keep Hb>7g/dL; keep plt>20k, unless there is concern for bleeding then keep plt>50k
- DVT ppx: Coumadin
Code status: Full code
Critical care statement: A total of 38 minutes of critical care time was provided for this patient today. This includes management of unstable vital signs, evaluation of the patient at bedside, reviewing the patient's pertinent medical records
including radiographs, microbiology, laboratory evaluations, and discussion with primary team, consultants, pharmacy, nutrition, physical therapy, case management, charge nurse, critical care nursing, and respiratory therapy.
[2025-01-22] MEDS: OFIRMEV 100 IV (15:37)
--- NOTE | 2025-01-22 17:29 | PHA.VAN.IN ---
Assessment
- Assessment
Renal Function: SCR Appears Elevated from baseline (0.9)
Maximum Temperature: 103.1 F rectal 01/22/25 @ 1021
Concomitant Antimicrobials: piperacillin/tazobactam
Plan
- Plan
Initial / Loading Dose: vanc 1500mg administered @ 1244
Maintenance Regimen: dosing by level
Monitoring: random level 01/23 06
Pharmacokinetics Vancomycin I
- -
Patient Age: 84
Patient Sex: Male
Vancomycin Day #: 1
Indication: Bacteremia
Requesting Provider: Dr. Kaylan Bailey
Pertinent Antimicrobial Allergies:
no pertinent antimicrobial allergies
Height / Weight:
Height 5 ft 10 in
Actual Weight 63.4 kg
- Vital Signs / Lab Results
Temp Pulse Resp BP Pulse Ox
100.3 F 66 15 101/55 100
01/22/25 16:37 01/22/25 17:00 01/22/25 17:00 01/22/25 17:00 01/22/25 17:00
Lab Results - Hematology
01/22/25
10:02
WBC 14.7 H
Lab Results - Chemistry
01/22/25
10:02
BUN 37 H
Creatinine 1.3
Albumin 4.3
01/22/25 01/22/25 01/22/25
10:02 11:49 13:45
Lactic Acid Cancelled 3.3 H Cancelled
01/22/25
15:09
Lactic Acid 2.1 H
Lab Results - Urine
01/22/25
12:34
Urine Nitrite (Reflex) Negative
Leukocyte Esterase Rfl 3+ A
Urine WBC (Reflex) 80-90 A
Ur Squamous Epith Cells 11-15
Urine Bacteria (Reflex) Moderate A
--- NOTE | 2025-01-22 18:45 | PTCARENOTE ---
Pt admitted to ICU bed 3365 from ED at 1630. Pt sedated on ventilator. Minimally responsive. Weaning propofol. Sinus rhythm. Bowden with cloudy magda urine. No seizure activity noted.
[2025-01-22] MEDS: COUMADIN 0.5 MG TUBE (19:29)
[2025-01-22] MEDS: FLOMAX 0.4 MG TUBE (19:29)
[2025-01-22] MEDS: COUMADIN 5 MG TUBE (19:29)
[2025-01-22 19:32] LABS: Triglycerides 166 mg/dl (10-149)
[2025-01-22] MEDS: TEGRETOL 600 MG TUBE (19:33)
[2025-01-22] MEDS: KEPPRA 1750 MG IV (19:34)
[2025-01-22] MEDS: LONITEN 10 MG TUBE (19:46)
[2025-01-22] MEDS: SUBLIMAZE 50 MCG IV (20:18)
--- NOTE | 2025-01-22 20:35 | PTCARENOTE ---
Received pt from previous RN. Pt withdrawals to pain, pt was able to follow commands and squeeze my hands. B/l wrist restraints in place. NSR/sinus pa on the monitor, weak pedals. ETT #7.5 24 @ the lip. AC 14/400/40%/5 O2 sat 100%, lungs clear.
Dobhoff @ 65 cm, meds given, then was unable to flush. Dobhoff clogged and pulled. ICU NURSE MIDWIFE notified, OG placed @ 60 cm, chest xray provided. Bowden in place. Prop gtt @ 15 mcgs (see worklist). Safe environment maintained.
[2025-01-22] MEDS: NON-FORMULARY ITEM 200 MG TUBE (22:42)
[2025-01-22] MEDS: NON-FORMULARY ITEM 25 MG TUBE (22:42)
[2025-01-23] VITALS (45 sets, daily range): BP systolic 90–175; BP diastolic 49–106; BMI 19.8
[2025-01-23] MEDS: ATIVAN 2 MG IV (00:55)
[2025-01-23] MEDS: NSS (PRESERVATIVE FREE) 1 ML IV (00:57)
--- NOTE | 2025-01-23 01:15 | PTCARENOTE ---
Pt with upward gaze, not following commands. ICU MACHINIST SUPERVISOR OUTSIDE notified, 2 mg Ativan given (see MAR). Prop gtt weaned to 5 mcgs (see worklist).
--- NOTE | 2025-01-23 03:47 | PTCARENOTE ---
Systems reviewed, no new changes in assessment. AM labs provided. Pt withdraws to painful stimuli. Prop gtt titrated off. Safe environment maintained.
[2025-01-23 04:11] LABS: Hematocrit 28.8 % (39.0-52.0); Hemoglobin 10.0 g/dL (13.0-18.0); Mean Corp Hgb Conc. 34.7 g/dL (33.0-37.0); Mean Corpuscular Volume 94.4 fL (80.0-94.0); Nucleated Red Blood Cells % 0 % (-); Platelet Count 273 10^3/uL (130-400); Red Cell Dist. Width 12.4 % (11.5-14.5)
[2025-01-23 04:25] LABS: ALT (SGPT) 25 U/L (0-50); AST (SGOT) 35 U/L (17-59); Albumin 3.3 g/dl (3.5-5.0); Alkaline Phosphatase 63 U/L (38-126); Blood Urea Nitrogen 35 mg/dl (9-20); Calcium 8.5 mg/dl (8.4-10.2); Carbon Dioxide 29 mmol/L (22-30); Chloride 104 mmol/L (98-107); Estimated Creatinine Clearance 39 ml/min; Glucose 114 mg/dl (70-99); Magnesium 2.3 mg/dl (1.6-2.3); Potassium 3.8 mmol/L (3.5-5.1); Sodium 138 mmol/L (135-145); Total Protein 7.1 g/dl (6.3-8.2); eGFR 54.85
[2025-01-23 04:29] LABS: Procalcitonin 3.19 ng/ml (0.0-0.25)
[2025-01-23 05:01] LABS: B.E. 5.6 mmol/L; HCO3 28.2 mmol/L (21-28); O2 Saturation % 100.0 % (94-98); PCO2 33 mmHg (35-48); PO2 194 mmHg (83-108)
[2025-01-23] MEDS: ZOSYN 50 IV ×4 (05:11→23:25)
[2025-01-23] MEDS: NSS 1000 IV ×2 (05:18→21:56)
[2025-01-23] MEDS: NSS 250 IV (05:18)
[2025-01-23] MEDS: OFIRMEV 100 IV (05:40)
--- NOTE | 2025-01-23 06:35 | W.PN.HOSP.TC ---
Addendum entered and electronically signed by Nathan Bennett DO 01/23/25 13:32:
Stage I sacral pressure injury, POA
Original Note:
Today's Communication/Plan
-
Continue AEDs
EEG
Assessment / Plan
Assessment / Plan
MPRESSION:
84-year-old male presenting to the ED with altered mental status/seizures.
PLAN:
#Acute metabolic encephalopathy
#Epilepsy
Likely breakthrough seizures versus infectious etiology versus autoimmune.
Neurology consulted
EEG with seizure burden
Recent hospital admission with change in the dosage of seizure medications
Full workup including paraneoplastic etiology done in the previous admission.
Also received 4/5 doses of IVIG at that time.
Continue AEDs
Lacosamide 200 mg IV every 12
Levetiracetam 1750 mg IV every 12
Carbamazepine 600 mg every 12, tube
Cenobamate increased to to 250 mg, daily , tube (not in formulary, patient's has it, home dose at 225 mg)
[address] head�no acute intracranial abnormality
Repeat EEG today-to assess for nonconvulsive status epilepticus
#VDRF
Patient intubated for airway protection in the ER after he was vomiting with seizure episode
Continue mechanical ventilation
Currently on 14/400/5/40%
Patient sedated with propofol, continue
Aspiration precautions, vent adjustments as per heel builder
SAT/SBT trial
Titrate FiO2/PEEP to keep SPO2 greater than 90%
#Sepsis
#UTI
#Leukocytosis
#Lactic acidosis
Patient septic at admission
Continue IV fluids
Continue IV Zosyn, IV Vanco
Monitor fever curve, WBC count
Blood cultures pending
Urinalysis with evidence of UTI, pending cultures
Chest x-ray with no evidence of pneumonia
Elevated procalcitonin�3.[address] today
Will trend lactate
#Heart failure with preserved ejection fraction
Recent echo�12/02/2024�ejection fraction�70%
Patient is septic, will hold furosemide for today
#Paroxysmal A-fib
EKG in ER-A-fib with RVR, rate at 130
Currently NSR
On Coumadin�5.5, continue
Not on any rate control meds
INR�3.05
#Essential hypertension
Will hold amlodipine, minoxidil for today
Diet�patient intubated, NPO
#DVT prophylaxis�warfarin
Full code
Anticipated Discharge: > 48 hours
Subjective/Interval History
-
Date of Service: January 23, 2025
Patient is intubated and sedated.
Objective Data
-
Labs:
Laboratory Results
01/23/25 01/23/25
03:36 04:53
WBC 10.8
Hgb 10.0 L
Hct 28.8 L
Plt Count 273 D
HCO3 28.2 H
Sodium 138
Potassium 3.8
Chloride 104
Carbon Dioxide 29
BUN 35 H
Creatinine 1.3
Glucose 114 H
Calcium 8.5
Total Bilirubin 0.7
AST 35
ALT 25
Alkaline Phosphatase 63
Vital Signs:
Vital Signs
Temp Pulse Resp BP Pulse Ox
99.4 F 75 24 135/66 97
01/23/25 03:11 01/23/25 06:14 01/23/25 06:14 01/23/25 06:14 01/23/25 06:14
I&O
01/21/25 01/22/25 01/23/25
06:59 06:59 06:59
Intake Total 558.0 / 558.0
Output Total 1168 / 1168
Balance -610.0 / -610.0
Physical Exam
-
General: No Apparent Distress, Comfortable and Intubated
HEENT: Normocephalic and Atraumatic
Respiratory: Other (Mechanical breath sounds)
Cardiac: Regular Rhythm and S1/S2
GI: Soft, Nontender, Nondistended, Normal Bowel Sounds and Other (Dobbhoff tube)
Genito-urinary: Bowden (With clear urine)
Skin: Warm and Dry
--- NOTE | 2025-01-23 08:06 | PHA.VAN.FU ---
Vancomycin Assessment / Plan
- Assessment
Renal Function: Stable (BUN & SCR remain slightly elevated from baseline)
WBC's are: Trending Down
Concomitant Antimicrobials: piperacillin/tazobactam
- Assessment - Therapeutic Drug Monitoring
Random Level: 12.5 - drawn ~14.5H after 1500mg loading dose
- Dosing Plan
Dosing by Level: Re-dose today (750mg)
- Monitoring Plan
Random Level: 01/24 06
- Follow Up
Pharmacy will continue to follow.
Vancomycin Follow UP
- -
Patient Age: 84
Patient Sex: Male
Vancomycin Day #: 2
Indication: Bacteremia
Requesting Provider: Dr. Kaylan Bailey
Pertinent Antimicrobial Allergies:
no pertinent antimicrobial allergies
Height / Weight:
Height 5 ft 10 in
Actual Weight 62.6 kg
- Vital Signs / Lab Results
Temp Pulse Resp BP Pulse Ox
99.5 F 75 24 135/66 98
01/23/25 07:56 01/23/25 06:14 01/23/25 06:14 01/23/25 06:14 01/23/25 07:58
Lab Results - Hematology
01/22/25 01/23/25
10:02 03:36
WBC 14.7 H 10.8
Lab Results - Chemistry
01/22/25 01/23/25
10:02 03:36
BUN 37 H 35 H
Creatinine 1.3 1.3
Estimated Creat Clear 39
Albumin 4.3 3.3 L
01/22/25 01/22/25 01/22/25
10:02 11:49 13:45
Lactic Acid Cancelled 3.3 H Cancelled
01/22/25 01/22/25 01/22/25
15:09 19:11 22:00
Lactic Acid 2.1 H 1.8 Cancelled
Lab Results - Urine
01/22/25
12:34
Urine Nitrite (Reflex) Negative
Leukocyte Esterase Rfl 3+ A
Ur Squamous Epith Cells 11-15
Therapeutic Drug Monitoring
Random Vancomycin 12.5 ug/ml 01/23/25 03:36
[2025-01-23] MEDS: PROTONIX IV 40 MG IV (08:08)
[2025-01-23] MEDS: NSS (PRESERVATIVE FREE) 10 ML IV (08:09)
[2025-01-23] MEDS: VIMPAT 200 MG IV ×2 (08:09→20:06)
--- NOTE | 2025-01-23 08:10 | W.PN.INTV ---
Today's Communication / Plan
Recommendations
Mechanical ventilation
MRI brain today
EEG after MRI brain
Keep on lowest sedation possible to help assess mental status
Neurology consulted, recs appreciated - defer AEDs to neurology
Continue ICU level of care for this critically ill patient
Assessment
-
Assessment: 84-year-old male with a past medical history of right upper lobe lung cancer s/p resection, hyperlipidemia, hypertension, and epilepsy who presents with altered mental status and seizure activity. Patient was recently hospitalized from
12/27 - 01/17/2025 for status epilepticus requiring ICU. He underwent an LP on 01/01 showing elevated protein and was started on IVIG for possible autoimmune contribution to his seizures. He tolerated 4 out of 5 treatments before he had to stop due to
nausea and somnolence. He also had to have his Coumadin held a few times due to supratherapeutic INR. He was discharged home with home care; since being discharged he has been having altered mental status, where he does not speak on certain days
or he does speak but does not make sense. On the evening of 01/21, the patient had a few seizure events, first at around midnight and the second around 2 AM, where he was shaking in bed, with his legs crunched up and even screamed 1 time. He has
been taking his seizure medications and the 's been making sure that it has been taken daily with full compliance. Now since being here in the ER, he had an episode of vomiting and remained lethargic, and had to be intubated for airway
protection. He initially was afebrile to 99.5 �F but then developed a fever to 103.1 �F. He initially was hypertensive to 175/70, saturating 97% on room air with pulse rate 89. After he was intubated, Vimpat 200 mg was provided. EEG was performed
and showing continuous bihemispheric burst suppression pattern. Labs initially showed a lactate of 2.1. UA showed +3 leukocyte esterase with 80�90 urine WBC. Blood and urine cultures collected. CXR showed no signs of pneumonia. CT head showed
no acute intracranial abnormality. In the ER, he was given 1 L NS 0.9%, started on vancomycin, Zosyn and propofol and admitted to the ICU for further care. [employer] services consulted for additional management/recommendations.
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
melanoma, impaired glucose tolerance, history of colon polyps
Impression:
#Status epilepticus
#Ventilator dependent respiratory failure (intubated 01/22/2025)
#Seizure disorder on multiple AEDs
#A-fib on Coumadin, currently NSR
#Hypertension
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
#CKD stage III
#History of melanoma involving the face s/p resection
#Ambulatory dysfunction
#History of COREY/CSA previously on BiPAP , no longer using since October 2020 after significant weight loss
#Mild intermittent asthma
#Aortic stenosis
Plan:
- Patient was found to be in status epilepticus, and since being discharged just a few days ago, he has been acting strange at home, not communicating as he normally does and 1 day prior to arrival was having seizure-like activity in bed, which
appeared to be tonic-clonic movements per the
- Patient was recommended to be transferred to [place] however the insisted to stay here at [facility] and declined transfer
- Patient is now intubated mainly for airway protection
- Patient currently off propofol since earlier this AM (01/23)
- Going out for brain MRI today
- Check EEG today after MRI brain
- Unclear if the patient has an infection that has led to his recurrent seizure
- His CXR does not appear to show any obvious consolidation; his UA does appear abnormal with 80�90 urine WBC, +3 leukocyte esterase --> follow up UCx (GNR --> enterococcus)
- Continue with broad-spectrum antibiotics (while being careful not to administer antibiotics which will lower the seizure threshold); follow-up blood cultures; collect respiratory culture from ETT if decent sample can be obtained; consider CT
chest to evaluate for pneumonia as he could have some more subtle groundglass opacities versus tree-in-bud which may not be picked up on CXR
- In the meantime:
- Continue with mechanical ventilation with daily SAT/SBT if clinically appropriate
- Maintain plateau pressure <30 and titrate FiO2 + PEEP to keep SpO2 >90-94%
- Continue aspiration precautions; keep HOB >30-45�
- prn nebulized bronchodilators - not currently bronchospastic
- Oropharyngeal + deep ETT suctioning with subglottic as needed
- Daily CXR + blood gas
- Daily vent adjustments as needed based on blood gas and SaO2
- Low level of sedation with goal RASS as 0 to -2, however first and foremost, seizures need to be controlled no matter what his RASS level is
- Defer antiepileptics to neurology � currently on Keppra 1750 IV q12hr, Vimpat 200 mg IV q12hr,and Xcopri 225 mg qPM
- Maintain MAP>65
- Replete electrolytes with K>4, Mg>2
- Maintain euglycemia with goal BG 140-180
- Trend H/H and transfuse if needed to keep Hb>7g/dL; keep plt>20k, unless there is concern for bleeding then keep plt>50k
- DVT ppx: Coumadin; check/trend INR - goal 2-3
Continue ICU level of care for this critically ill patient
Code status: Full code
Critical care statement: A total of 41 minutes of critical care time was provided for this patient today. This includes management of unstable vital signs, evaluation of the patient at bedside, reviewing the patient's pertinent medical records
including radiographs, microbiology, laboratory evaluations, and discussion with primary team, consultants, pharmacy, nutrition, physical therapy, case management, charge nurse, critical care nursing, and respiratory therapy.
Data:
CT head 01/22/2025: No acute intracranial abnormality noted.
Subjective Dataa
Subjective Data
Date of Service:
Date of Service: January 23, 2025
Chief Complaint: [employer] Follow Up
Subjective:
Patient was seen and evaluated this morning. Remains intubated. Heart rate 55, saturating 98% with BP 104/55. Off propofol since earlier this morning at 1:51 AM. Currently intubated on AC/CMV at 14/400/5/40% with PIP 19 cmH2O, VTe 384 mL and
breathing at 14 breaths/min. Propofol off since 2 AM. Remains unresponsive. at bedside.
Review of Systems
General: Unobtainable - Pat Unresp
Objective Data
Data Reviewed
Vital Signs / I&O / Oxygen:
Vital Signs
Temp Pulse Resp BP Pulse Ox
99.5 F 75 24 135/66 98
01/23/25 07:56 01/23/25 06:14 01/23/25 06:14 01/23/25 06:14 01/23/25 07:58
Intake and Output
01/22/25 01/23/25 01/24/25
06:59 06:59 06:59
Intake Total 558.0 / 618.0 120 / 120
Output Total 1168 / 1168 70 / 70
Balance -610.0 / -550.0 50 / 50
SaO2 [A/C] 100
SaO2 98
Physical Exam
General: Respiratory Distress (negative), Comfortable, Chills (negative) and Sweats (negative)
HEENT: Normocephalic, Anicteric and Other (ETT in place)
Cardiovascular: S1-S2 and Peripheral Edema (negative)
Respiratory: Wheeze (negative), Crackles (negative), Rhonchi (negative), Stridor (negative) and ET Tube (Mechanical breath sounds heard bilaterally)
GI: Soft, Non Distended, Non Tender and Normal Bowel Sounds
Neurology: Tremors (negative) and Unresponsive
Skin: Warm, Dry, Cyanosis (negative) and Jaundice (negative)
Labs/Micro/Reports
Lab Data
01/23/25 03:36
01/23/25 03:36
Laboratory Results
01/22/25 01/22/25 01/22/25
10:02 11:21 11:49
PT Cancelled
INR Cancelled
APTT Cancelled 34.7
pH 7.58 H
pCO2 30 L
pO2 207 H
HCO3 28.1 H
O2 Delivery Level Not Reportable
01/22/25 01/23/25
15:09 04:53
PT 31.9 H
INR 3.05
APTT
pH 7.54 H
pCO2 33 L
pO2 194 H
HCO3 28.2 H
O2 Delivery Level
[2025-01-23] MEDS: KEPPRA 1750 MG IV ×2 (08:12→20:11)
[2025-01-23] MEDS: NORVASC TUBE (08:16)
[2025-01-23] MEDS: TEGRETOL 600 MG TUBE ×2 (08:17→20:10)
[2025-01-23] MEDS: LASIX 40 MG TUBE (08:17)
[2025-01-23] MEDS: MIRALAX 17 GRAMS TUBE (08:17)
--- NOTE | 2025-01-23 08:35 | VNURNOTE ---
Chart reviewed. Patient is current with VN. Will continue to follow hospital course and DC plans.
--- NOTE | 2025-01-23 10:31 | W.PN.NEURO.1 ---
Addendum entered and electronically signed by Edward Edouard MD 01/23/25 11:01:
Studies reviewed.
I have personally examined the patient. I reviewed and agree with the CLINICAL SUPPORT NURSE's Note.
My addenda:
Awake, interactive. No acute distress.
Speech mute in part due to intubation.
Follows 1-step requests w/o difficulty. No tremor.
Extra-ocular movements grossly intact.
Facial movements full and symmetric. Hearing intact to normal conversational volume.
Normal UE movements bilaterally.
Neck: full ROM.
Chest: no dyspnea
Heart: no JVD
Ext: (-) Clubbing, (-) Cyanosis, (-) Edema
IMPRESSIONS/RECOMMENDATIONS:
Abrupt onset of worsening cognitive function in a patient previously diagnosed with intractable epilepsy. There is low evidence of paraneoplastic autoimmune epilepsy at this time
Consider high-dose steroids to remediate the patient's epilepsy as a last ditch effort for possible although unlikely paraneoplastic induced epilepsy
Follow MRI of brain with and without contrast results
Advance Cenobamate eventually to dosing of 400 mg/day gradually by 25 mg increments weekly
Continue carbamazepine and levetiracetam
Will restart lacosamide 200 mg twice a day, if QT interval becomes problematic, will discontinue again
Must consider hospice as the patient's intractable epilepsy will not be controllable without academic epilepsy evaluation and/or neurosurgical intervention, which patient's family shows disinterest
Recheck EEG with consideration of continuous EEG monitoring
D/W patient / nursing
Will continue to follow patient.
Original Note:
Today's Communication / Plan
-
.
Neuro Assessment/Plan
Assessment
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
He has failed combined therapy of levetiracetam, lacosamide, carbamazepine, valproic acid, and Cenobamate at 200 mg. Currently, it is unclear if the patient has been having continuous seizures after recent discharge and now developed an infectious
etiology for recurrent seizures
-EEG 01/22/25: Moderately to severely abnormal study for age based on bihemispheric burst-suppression pattern continuously during the study.
I. Refractory epilepsy
II. Fever, unclear cause
Plan
Patient should be continued on his usual antiseizure medications at their recent levels
MRI brain w/ and w/o contrast eventually
Carbamazepine level is normal
Check levetiracetam level although most likely will be delayed in its return
Check EEG, completed
Advance Cenobamate dosing from 225 mg to 250 mg using the patient's outpatient supply of the medication
DVT prophylaxis with warfarin
Will follow.
Subjective/Objective
Subjective Data
Date of Service: January 23, 2025
No acute events overnight. Patient is intubated in the ICU, sedation on hold. Has eyes open spontaneously currently.
Objective Data
Vital Signs
Temp Pulse Resp BP Pulse Ox
99.5 F 58 14 100/56 97
01/23/25 07:56 01/23/25 09:30 01/23/25 09:30 01/23/25 09:30 01/23/25 08:30
Lab Results
01/23/25 03:36
01/23/25 03:36
PT 31.9 Sec (11.4-14.6) H 01/22/25 15:09
INR 3.05 01/22/25 15:09
APTT 34.7 Sec (23.4-35.0) 01/22/25 11:49
Sodium 138 mmol/L (135-145) 01/23/25 03:36
Potassium 3.8 mmol/L (3.5-5.1) 01/23/25 03:36
BUN 35 mg/dl (9-20) H 01/23/25 03:36
Glucose 114 mg/dl (70-99) H 01/23/25 03:36
Calcium 8.5 mg/dl (8.4-10.2) 01/23/25 03:36
Phosphorus 3.8 mg/dl (2.5-4.5) 01/23/25 03:36
Patient Allergies
hydralazine Allergy (Verified 01/22/25 09:44)
Unknown
pollen extracts Allergy (Verified 01/22/25 09:44)
nasal symptoms
Review of Systems
-
Unable to obtain full review of systems at this time due to: Patient Intubation
Physical Exam
-
General: Appears Chronically Ill
Eyes: No Ptosis and PERRLA
HEENT: Normocephalic and Atraumatic
Neck: Unable to Assess
Respiratory: Other (intubated)
GI: Non-distended
Extended Neurological Exam
Mood & Affect: Unable to Assess
Attention Span & Concentration: Awake and Other (opens eyes spontaneously. Follows simple commands.)
Memory: Unable to Assess
Tremor: Hand Tremor Absent and Head Tremor Absent
Involuntary Movement: None
Speech: Unable to Assess
Cranial Nerve II: Left Eye: Pupillary Reactivity Unremarkable, Pupillary Size Unremarkable and Unable to Assess
Cranial Nerve II: Right Eye: Pupillary Reactivity Unremarkable, Pupillary Size Unremarkable and Unable to Assess
Cranial Nerves III, IV, : Extraocular Movement: Unable to Assess
Cranial Nerve VII: Facial Symmetry: Normal Facial Symmetry
Cranial Nerve VIII: Hearing: Unable to Assess
Cranial Nerves IX, X: Palate Movement: Unable to Assess
Cranial Nerve XI: Shoulder Shrug: Unable to Assess
Cranial Nerve XII: Tongue Protusion: Unable to Assess
Muscle Strength, Overall: Reduced Throughout
Pronator Drift: Unable to Assess
Deep Tendon Reflexes: Unremarkable Throughout
Cold Sensation: Unable to Assess
Vibration Sensation: Unable to Assess
Touch Sensation: Unable to Assess
Coordination: Unable to Assess
Babinski Sign: Absent Bilaterally
Data Reviewed
-
CT Head: Report Reviewed and Image Reviewed
MRI Head: Pending
EEG: Report Reviewed
Labs: Report Reviewed
Reviewed with: Physician, Nurse and Patient
Medications
-
Active Medications
Generic Name Dose Route Start Last Admin
Trade Name Freq PRN Reason Stop Dose Admin
Amlodipine Besylate 2.5 mg 01/23/25 08:00 01/23/25 08:16
Amlodipine 2.5 Mg Tablet TUBE 02/20/25 07:59 Not Given
On Hold: 01/23/25 09:00 DAILY VIRAJ
Carbamazepine 600 mg 01/22/25 20:00 01/23/25 08:17
Carbamazepine 200 Mg Tablet TUBE 02/19/25 19:59 600 mg
BID VIRAJ Administration
Clonidine HCl 0.2 mg 01/29/25 08:00
Clonidine 0.2 Mg Patch TRANSDERM 02/26/25 07:59
WE VIRAJ
Fentanyl Citrate 50 mcg 01/22/25 17:48 01/22/25 20:18
Fentanyl (50 Mcg/Ml) 100 Mcg/2 Ml Ampul IV 02/05/25 17:47 50 mcg
[id number] PRN Administration
see protocol
Protocol
Furosemide 40 mg 01/23/25 08:00 01/23/25 08:17
Furosemide 40 Mg Tablet TUBE 02/20/25 07:59 40 mg
DAILY VIRAJ Administration
Acetaminophen 1,000 mg in 100 mls @ 400 mls/hr 01/22/25 15:30 01/23/25 05:40
Ofirmev IV 01/23/25 15:29 100 mls
Q6HPRN PRN Administration
fever
Protocol
As Directed
Piperacillin Sod/Tazobactam Sod 3.375 gram in 50 mls @ 100 mls/hr 01/22/25 18:00 01/23/25 05:11
Zosyn IV 50 mls
Q6H VIRAJ Administration
Vancomycin HCl 1 each/ Device 0 mls @ 0 mls/hr 01/22/25 17:25
IV
PER PROTOCOL VIRAJ
Protocol
As Directed
Propofol 1,000,000 mcg in 100 mls @ 0 mls/hr 01/22/25 18:00
Diprivan IV
PER PROTOCOL VIRAJ
Protocol
Per Protocol
Sodium Chloride 1,000 mls @ 60 mls/hr 01/23/25 04:45 01/23/25 05:18
Nss IV 1,000 mls
[id number] VIRAJ Administration
Vancomycin HCl 750 mg in 150 mls @ 150 mls/hr 01/23/25 12:00
Vancocin IV 01/23/25 12:59
ONCE ONE
Lacosamide 200 mg 01/22/25 20:00 01/23/25 08:09
Lacosamide (10 Mg/Ml) 200 Mg/20 Ml Vial IV 02/05/25 19:59 200 mg
Q12H VIRAJ Administration
Levetiracetam 1,750 mg 01/22/25 20:00 01/23/25 08:12
Levetiracetam (100 Mg/Ml) 500 Mg/5 Ml Vial IV 02/19/25 19:59 1,750 mg
Q12 VIRAJ Administration
Lorazepam 1 mg 01/22/25 16:31
Lorazepam 1 Mg Tablet TUBE 02/19/25 16:30
Q6HPRN PRN
anxiety
Minoxidil 10 mg 01/22/25 20:00 01/22/25 19:46
Minoxidil 10 Mg Tablet TUBE 02/19/25 19:59 10 mg
On Hold: 01/23/25 05:20 BID VIRAJ Administration
Cenobamate 200 Mg 0 mg 01/22/25 22:00 01/22/25 22:42
Tablet - 1 Tablet ( TUBE 02/19/25 21:59 200 mg
200mg) Po/Tube Hs HS VIRAJ Administration
Cenobamate [Xcopri] 0 mg 01/22/25 22:00 01/22/25 22:42
25 Mg Tablet - 1 TUBE 02/19/25 21:59 25 mg
Tablet (25mg) Po/ HS VIRAJ Administration
Tube Hs
Pantoprazole Sodium 40 mg 01/23/25 08:00 01/23/25 08:08
Pantoprazole Sodium 40 Mg/10 Ml Vial IV 02/20/25 07:59 40 mg
DAILY VIRAJ Administration
Polyethylene Glycol 17 grams 01/23/25 08:00 01/23/25 08:17
Polyethylene Glycol Powder 17 Grams Packet TUBE 02/20/25 07:59 17 grams
DAILY VIRAJ Administration
Sodium Chloride 0 flush 01/22/25 15:00
Sodium Chloride 0.9% (Flush) Syringe IV 02/19/25 14:59
PER PROTOCOL VIRAJ
Sodium Chloride 10 ml 01/23/25 08:00 01/23/25 08:09
Sodium Chloride 0.9% (Preservative Free) 10 Ml Vial IV 02/20/25 07:59 10 ml
DAILY VIRAJ Administration
Tamsulosin HCl 0.4 mg 01/22/25 18:00 01/22/25 19:29
Tamsulosin 0.4 Mg Capsule TUBE 02/19/25 17:59 0.4 mg
QPM VIRAJ Administration
Warfarin Sodium 5 mg 01/22/25 18:00 01/22/25 19:29
Warfarin 5 Mg Tablet TUBE 01/27/25 17:59 5 mg
QPM VIRAJ Administration
Warfarin Sodium 0.5 mg 01/22/25 18:00 01/22/25 19:29
Warfarin 0.5 Mg (1/2 Of 1 Mg Tablet) TUBE 01/27/25 17:59 0.5 mg
QPM VIRAJ Administration
Home Medications
�Medication �Instructions �Recorded
minoxidil 10 mg tablet 10 mg PO BID Blood Pressure 01/22/23
cyanocobalamin (vitamin B-12) 1,000 mcg PO DAILY Supplement 10/17/23
1,000 mcg tablet
furosemide 40 mg tablet 40 mg PO DAILY Fluid 10/17/23
Retention/Swelling
pantoprazole 40 mg tablet,delayed 40 mg PO DAILY Gastrointestinal 10/17/23
release Issue
warfarin 1 mg tablet 5.5 mg PO QPM Blood Clot 10/17/23
Prevention/Tx
clonidine 0.2 mg/24 hr weekly 0.2 mg transdermal WE Blood 05/29/24
transdermal patch Pressure 30 days #4 ea
amlodipine 2.5 mg tablet 2.5 mg PO DAILY Blood Pressure 07/15/24
carbamazepine 200 mg 400 mg PO BID TOTAL 600MG BID 07/15/24
tablet,extended release,12 hr
levetiracetam 500 mg tablet 1,750 mg PO BID seizures 07/15/24
lorazepam 1 mg tablet 1 mg PO Q6HPRN PRN anxiety 07/15/24
silodosin 8 mg capsule 8 mg PO QPM Urinary Issue 10/24/24
carbamazepine 100 mg 200 mg PO BID TOTAL 600MG BID 01/22/25
tablet,extended release,12 hr
cenobamate 200 mg tablet 200 mg PO HS TAKE WITH 25MG 01/22/25
cenobamate 25 mg tablet (Xcopri) 25 mg PO HS TAEK WITH 200MG 01/22/25
lacosamide 200 mg tablet 200 mg PO BID Seizures 01/22/25
ondansetron HCl 4 mg tablet 4 mg PO BIDPRN PRN NAUSEA 01/22/25
--- NOTE | 2025-01-23 11:29 | PTCARENOTE ---
Pt remains lethargic with all sedation off. Follows some simple commands. No seizure activity noted.
Fail spontaneous breathing trial this am d/t apnea. Will attempt again later today.
RN and [employer] REPAIR transporting pt to MRI at this time. Thermister meraz d/c'd for MRI.
All other assessments unchanged.
[2025-01-23] MEDS: VANCOCIN 150 IV (12:32)
--- NOTE | 2025-01-23 13:00 | PTCARENOTE ---
EEG in progress
and daughter at bedside
--- NOTE | 2025-01-23 13:12 | PN.CDI ---
CDI
- -
CDI:
Physician Documentation Request
Admit Date: 01/22/25 14:48
Dear Doctor Kaylan Bailey,
Patient admitted with sepsis.
01/22 Nursing skin assessment, 'Stage 1 sacral pressure injury, POA.'
Physician documentation of the type and location of wounds is required for compliant documentation. Based on the above clinical findings and your assessment, please provide the following in your progress note:
1. Location of the ulcer/wound, including laterality.
2. Type (etiology) of ulcer/wound:
- Diabetic ulcer
- Arterial (ischemic) ulcer
- Traumatic wound
- Venous stasis ulcer
- Pressure (decubitus) ulcer
- Non-healing surgical wound
- Other
- Unable to determine
3. For a non-pressure ulcer, please indicate the depth/severity:
- Limited to the breakdown of skin
- With fat layer exposed
- With necrosis of muscle
- With necrosis of bone
- Other
- Unable to determine
4. If a pressure ulcer, please also include the stage* of the ulcer:
- Stage 1 - Skin intact, non-blanchable redness
- Stage 2 - Partial thickness loss of dermis, includes intact or open blister
- Stage 3 - Full thickness tissue not including bone, tendon or muscle
- Stage 4 - Full thickness tissue loss, including exposed bone, tendon or muscle
- Unstageable - Full thickness loss in which the base of the ulcer is covered by slough (yellow, ingram, van, green or brown) and/or eschar (ingram, brown or black) in the wound bed.
- Unable to determine
Use of terms such as suspected, likely, concern for, or probable (associated with a specific diagnosis that is being evaluated, monitored, or treated as if it exists) are acceptable and can be coded in the inpatient setting, when documented at the
time of discharge.
Thank you,
Anahi Amend
CDI Specialist
Please use your independent medical judgment in providing your response.
*Source: National Pressure Ulcer Advisory Panel (NPUAP)
--- NOTE | 2025-01-23 13:29 | CM ---
Patient intubated. Multiple admissions, most recent 12/13/24-12/17/24, 12/28/24-01/17/25. Initial assessment completed with and daughter. Patient lives with his in a 2 story home with B/B on ad 08/01 bath on with stair glide to and
1 step to enter the home. DIRECTOR OF STRATEGIC INITIATIVES patient was independent with ambulation with RW and received some assistance from for ADL's. In the home he has 2 RW, one on each floor, a hospital bed, stair glide, shower chair, wheelchair and transport chair.
He has had [facility] RN, PT/OT and CORPORATE RISK ANALYST since the last admission. PCP is Dr. Robin Garcia and pharmacy is [facility] in . Discharge POC: TBD once extubated. is now amenable to SNF if recommended by therapy.
--- NOTE | 2025-01-23 16:11 | EEG.RPT ---
Electroencephalogram Report
Recording
Date of EE01/23/25
Type of EEG: Routine
Length of EEG recordin minutes
Done with Video Recording: Yes
Patient Status: Inpatient
Recording Conditions: Awake and Drowsy
Hyperventilation Performed: No
Photic Stimulation Performed: Yes
Report
LESS THAN 1 HOUR EEG REPORT
LESS THAN 1 HOUR EEG INTERPRETATION:
Mildly abnormal study for age based on low amplitude even for age, generalized slowing demonstrated bihemispherically equally
CLINICAL CORRELATION:
Although normative values not been established for a person of this advanced age the patient�s symmetry of the background suggests that this study was suggestive of mild to moderate bihemispheric cortical dysfunction. No epileptiform features were
demonstrated.
If concerns remain regarding epilepsy, prolonged monitoring may be of assistance.
Clinical correlation is advised.
METHODS:
A 21-channel digital electroencephalogram (EEG) was performed at the bedside in the ICU. The 10/20 international system of electrode placement was used with ECG and lateral/vertical eye movements recorded. The [employer] quantitative EEG analysis
system was performed
IMPRESSION(S):
Quality of study
Fair�good
Background
Low amplitude
Anterior-posterior voltage gradient differentiation: Fair
Theta frequency maximal background demonstrated
Sleep
Drowsiness present
Hyperventilation
Not performed
Photic Stimulation
Failed to activate the record
ECG
Normal rhythm
Abnormal Activity
None
[2025-01-23 16:49] LABS: B.E. 2.2 mmol/L; HCO3 28.2 mmol/L (21-28); O2 Saturation % 100.0 % (94-98); PCO2 50 mmHg (35-48); PO2 186 mmHg (83-108)
[2025-01-23 17:04] LABS: INR 3.59; PT 35.6 Sec (11.4-14.6)
--- NOTE | 2025-01-23 17:10 | PTCARENOTE ---
SBT started 1524. Pt biting tube at times. ABG sent.
All other assessments unchanged.
[2025-01-23] MEDS: SUBLIMAZE 50 MCG IV ×2 (18:06→20:10)
[2025-01-23] MEDS: FLOMAX 0.4 MG TUBE (18:07)
--- NOTE | 2025-01-23 18:35 | PTCARENOTE ---
Urine output< 5ml since meraz d/c'd. Bladder can 411. Straight cath 415ml.
--- NOTE | 2025-01-23 20:15 | PTCARENOTE ---
Received patient intubated, sedated, and restrained. Patient opens eyes and occasionally follows commands, weak hand grasps b/l. Restraints ongoing, fentanyl bolus given for agitation and CPOT 5. PERRLA 3 mm, blinks spontaneously. NS 60s, BP stable,
normothermic. Palpable radial and pedal pulses b/l. 7.5 ETT, 24 at the lip. Tube higginbotham changed with respiratory. Vent settings 14/400/40%+5. Lung sounds diminished throughout, saturating 100%. OG tube at 65, osmolite 1.2 going at 20 ml/hr with 25
ml flush, advancing Q8 per protocol. Abdomen soft, positive bowel sounds. #[address] Foam on sacrum. PIVs patent, WNL. Repositioned, mouth care done. Hourly rounding and patient safety checks ongoing.
[2025-01-23] MEDS: NON-FORMULARY ITEM 25 MG TUBE (21:53)
[2025-01-23] MEDS: NON-FORMULARY ITEM 200 MG TUBE (21:53)
--- NOTE | 2025-01-23 23:51 | PTCARENOTE ---
Tube feed advanced to 40 ml/hr. Otherwise patient assessment unchanged from previous, hourly rounding and patient safety checks ongoing.
[2025-01-24] VITALS (40 sets, daily range): BP systolic 93–173; BP diastolic 46–104; PULSE 39; BMI 20.8
[2025-01-24] MEDS: SUBLIMAZE 50 MCG IV ×4 (04:39→14:24)
--- NOTE | 2025-01-24 04:45 | PTCARENOTE ---
Fentanyl bolus given for agitation. CHG bath done, sheets changed, repositioned, mouth care done. Patient bladder scanned for 322 mls after 150 mls of output. Patient had a formed, hard bowel movement, cleaned up. Labs sent. Otherwise patient
assessment unchanged from previous, hourly rounding and patient safety checks ongoing.
[2025-01-24 04:51] LABS: B.E. 3.9 mmol/L; HCO3 27.6 mmol/L (21-28); O2 Saturation % 99.8 % (94-98); PCO2 37 mmHg (35-48); PO2 211 mmHg (83-108)
[2025-01-24] MEDS: ZOSYN 50 IV ×4 (05:05→23:20)
[2025-01-24 05:07] LABS: INR 4.06; PT 39.0 Sec (11.4-14.6)
[2025-01-24 05:08] LABS: APTT 69.4 Sec (23.4-35.0)
[2025-01-24 05:16] LABS: Hematocrit 24.9 % (39.0-52.0); Hemoglobin 8.6 g/dL (13.0-18.0); Mean Corp Hgb Conc. 34.5 g/dL (33.0-37.0); Mean Corpuscular Volume 94.3 fL (80.0-94.0); Nucleated Red Blood Cells % 0 % (-); Platelet Count 260 10^3/uL (130-400); Red Cell Dist. Width 12.3 % (11.5-14.5)
[2025-01-24 05:27] LABS: ALT (SGPT) 18 U/L (0-50); AST (SGOT) 25 U/L (17-59); Albumin 2.9 g/dl (3.5-5.0); Alkaline Phosphatase 49 U/L (38-126); Blood Urea Nitrogen 31 mg/dl (9-20); Calcium 8.0 mg/dl (8.4-10.2); Carbon Dioxide 27 mmol/L (22-30); Chloride 106 mmol/L (98-107); Estimated Creatinine Clearance 53 ml/min; Glucose 139 mg/dl (70-99); Potassium 3.2 mmol/L (3.5-5.1); Sodium 140 mmol/L (135-145); Total Protein 6.3 g/dl (6.3-8.2); eGFR > 60.00
[2025-01-24] MEDS: KCL ELIXIR 40 MEQ TUBE ×2 (06:22→11:56)
--- NOTE | 2025-01-24 08:16 | W.PN.INTV ---
Today's Communication / Plan
Recommendations
Mechanical ventilation
Start Precedex
AEDs per neurology
Daily SAT/SBT � hopefully can extubate by tomorrow
Start budesonide + DuoNebs given history of asthma
Neurology consulted, recs appreciated
Continue ICU level of care for this critically ill patient
Assessment
-
Assessment: 84-year-old male with a past medical history of right upper lobe lung cancer s/p resection, hyperlipidemia, hypertension, and epilepsy who presents with altered mental status and seizure activity. Patient was recently hospitalized from
12/27 - 01/17/2025 for status epilepticus requiring ICU. He underwent an LP on 01/01 showing elevated protein and was started on IVIG for possible autoimmune contribution to his seizures. He tolerated 4 out of 5 treatments before he had to stop due to
nausea and somnolence. He also had to have his Coumadin held a few times due to supratherapeutic INR. He was discharged home with home care; since being discharged he has been having altered mental status, where he does not speak on certain days
or he does speak but does not make sense. On the evening of 01/21, the patient had a few seizure events, first at around midnight and the second around 2 AM, where he was shaking in bed, with his legs crunched up and even screamed 1 time. He has
been taking his seizure medications and the 's been making sure that it has been taken daily with full compliance. Now since being here in the ER, he had an episode of vomiting and remained lethargic, and had to be intubated for airway
protection. He initially was afebrile to 99.5 �F but then developed a fever to 103.1 �F. He initially was hypertensive to 175/70, saturating 97% on room air with pulse rate 89. After he was intubated, Vimpat 200 mg was provided. EEG was performed
and showing continuous bihemispheric burst suppression pattern. Labs initially showed a lactate of 2.1. UA showed +3 leukocyte esterase with 80�90 urine WBC. Blood and urine cultures collected. CXR showed no signs of pneumonia. CT head showed
no acute intracranial abnormality. In the ER, he was given 1 L NS 0.9%, started on vancomycin, Zosyn and propofol and admitted to the ICU for further care. Child Support Officer services consulted for additional management/recommendations.
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
melanoma, impaired glucose tolerance, history of colon polyps
Impression:
#Status epilepticus - resolved
#Ventilator dependent respiratory failure (intubated 01/22/2025)
#Seizure disorder on multiple AEDs
#A-fib on Coumadin, currently NSR
#Hypertension
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
#CKD stage III
#History of melanoma involving the face s/p resection
#Ambulatory dysfunction
#History of COREY/CSA previously on BiPAP , no longer using since October 2020 after significant weight loss
#Mild intermittent asthma
#Aortic stenosis
Plan:
- Patient was found to be in status epilepticus, and since being discharged just a few days ago, he has been acting strange at home, not communicating as he normally does and 1 day prior to arrival was having seizure-like activity in bed, which
appeared to be tonic-clonic movements per the
- Patient was recommended to be transferred to [place] however the insisted to stay here at [facility] and declined transfer
- Patient is now intubated mainly for airway protection
- Patient currently off propofol since AM of 01/23
- Brain MRI performed on 01/23/2025 showed no acute intracranial abnormality
- EEG checked on 01/23 showed mild�moderate bihemispheric cortical dysfunction with no epileptiform features
- Unclear if the patient has an infection that has led to his recurrent seizure, as he does appear to have a UTI
- Urine culture is now growing Pseudomonas aeruginosa + Enterococcus faecalis
- His CXR does not appear to show any obvious consolidation
- Continue with broad-spectrum antibiotics via Zosyn (while being careful not to administer antibiotics which will lower the seizure threshold); follow-up blood cultures (NGTD); collect respiratory culture from ETT if decent sample can be obtained;
consider CT chest to evaluate for pneumonia as he could have some more subtle groundglass opacities versus tree-in-bud which may not be picked up on CXR
- Continue with mechanical ventilation with daily SAT/SBT if clinically appropriate
- Maintain plateau pressure <30 and titrate FiO2 + PEEP to keep SpO2 >90-94%
- Continue aspiration precautions; keep HOB >30-45�
- prn nebulized bronchodilators - not currently bronchospastic
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
- Oropharyngeal + deep ETT suctioning with subglottic as needed
- Daily CXR + blood gas
- Daily vent adjustments as needed based on blood gas and SaO2
- Low level of sedation with goal RASS as 0 to -2, however first and foremost, seizures need to be controlled no matter what his RASS level is
- Considering the patient becomes very agitated quickly, start Precedex to help with the weaning process
- Defer antiepileptics to neurology � currently on Keppra 1750 IV q12hr, Vimpat 200 mg IV q12hr, and Xcopri 225 mg qPM --> raising Xcopri to 250mg qPM
- Maintain MAP>65
- Replete electrolytes with K>4, Mg>2
- Maintain euglycemia with goal BG 140-180
- Trend H/H and transfuse if needed to keep Hb>7g/dL; keep plt>20k, unless there is concern for bleeding then keep plt>50k
- DVT ppx: Hold Coumadin given INR is now >4; trend INR - goal 2-3
Continue ICU level of care for this critically ill patient
Code status: Full code
Critical care statement: A total of 43 minutes of critical care time was provided for this patient today. This includes management of unstable vital signs, evaluation of the patient at bedside, reviewing the patient's pertinent medical records
including radiographs, microbiology, laboratory evaluations, and discussion with primary team, consultants, pharmacy, nutrition, physical therapy, case management, charge nurse, critical care nursing, and respiratory therapy.
Data:
CT head 01/22/2025: No acute intracranial abnormality noted.
Brain MRI 01/23/2025: No acute intracranial abnormality. Chronic senescent changes. Motion limited exam.
EEG 01/22/25: Moderately to severely abnormal study for age based on bihemispheric burst-suppression pattern continuously during the study.
EEG 01/23/25: Mild to moderate bihemispheric cortical dysfunction. No epileptiform features were demonstrated.
Subjective Dataa
Subjective Data
Date of Service:
Date of Service: January 24, 2025
Chief Complaint: Child Support Officer Follow Up
Subjective:
Pt was seen and evaluated this AM. Failed SBT this AM x2 due to apnea. Currently intubated, on vent settings 14/400/5/40% with PIP 18 cmH2O, VTe 368 mL and breathing at 14 breaths/minute. Heart rate 56, saturating 100% and BP 101/46. He needed
fentanyl this AM due to biting the tube, but he was following commands prior to fentanyl being given. No seizure activity seen at bedside. Been off propofol since yesterday morning. When I interacted with him, he is continuing to awaken and
follow commands. He became apneic during subsequent SBT on PST 12/02. He nodded his head yes that he wants the tube out of his throat. His daughter, Mirella, is present at bedside in addition to his , Santa.
Review of Systems
General: Other (Unobtainable as patient is intubated)
Objective Data
Data Reviewed
Vital Signs / I&O / Oxygen:
Vital Signs
Temp Pulse Resp BP Pulse Ox
97.6 F 71 17 135/66 100
01/24/25 07:47 01/24/25 06:00 01/24/25 06:00 01/24/25 06:00 01/24/25 07:52
Intake and Output
01/23/25 01/24/25 01/25/25
06:59 06:59 06:59
Intake Total 558.0 / 618.0 2655 / 2655
Output Total 1168 / 1168 950 / 950
Balance -610.0 / -550.0 1705 / 1705
SaO2 [CPAP/PSV] 99
SaO2 [A/C] 99
SaO2 100
Physical Exam
General: Respiratory Distress (negative), Comfortable, Chills (negative) and Sweats (negative)
HEENT: Normocephalic, Anicteric and Other (ETT in place)
Cardiovascular: S1-S2 and Peripheral Edema (negative)
Respiratory: Wheeze (negative), Crackles (negative), Rhonchi (negative), Stridor (negative) and ET Tube (Mechanical breath sounds heard bilaterally)
GI: Soft, Non Distended, Non Tender and Normal Bowel Sounds
Neurology: Tremors (negative) and Other (Easily arousable, following all commands, occasionally becomes agitated, biting the tube, trying to get up out of bed and needs to be held down)
Skin: Warm, Dry, Cyanosis (negative) and Jaundice (negative)
Labs/Micro/Reports
Lab Data
01/24/25 04:33
01/24/25 04:33
Laboratory Results
01/23/25 01/24/25 01/24/25
16:43 04:33 04:36
PT 35.6 H 39.0 H
INR 3.59 4.06
APTT 69.4 H
pH 7.36 7.48 H
pCO2 50 H 37
pO2 186 H 211 H
HCO3 28.2 H 27.6
O2 Delivery Level
Microbiology
01/24/25 04:37 Nose Nasal Screen MRSA (PCR) - Final
MRSA not detected - performed by PCR methodology.
01/22/25 12:34 Urine Urine Culture - Preliminary
Gram negative bacilli
Enterococcus species
01/22/25 10:42 Blood/Venous Blood Culture - Preliminary
No Growth in 24 hours- Final report to follow
01/22/25 10:02 Blood/Venous Blood Culture - Preliminary
No Growth in 24 hours- Final report to follow
--- NOTE | 2025-01-24 08:36 | W.PN.HOSP.TC ---
Today's Communication/Plan
-
Continue IV Zosyn
Continue IV fluids
Continue mechanical ventilation SAT/SBT
Continue AEDs
Assessment / Plan
Assessment / Plan
MPRESSION:
84-year-old male presenting to the ED with altered mental status/seizures.
PLAN:
#Acute metabolic encephalopathy
#Epilepsy
Likely breakthrough seizures versus infectious etiology versus autoimmune.
Neurology consulted
EEG with seizure burden
Recent hospital admission with change in the dosage of seizure medications
Full workup including paraneoplastic etiology done in the previous admission.
Also received 4/5 doses of IVIG at that time.
Continue AEDs
Lacosamide 200 mg IV every 12
Levetiracetam 1750 mg IV every 12
Carbamazepine 600 mg every 12, tube
Cenobamate increased to to 250 mg, daily , tube (not in formulary, patient's has it, home dose at [address] head�no acute intracranial abnormality
MRI brain - no acute intracranial abnormality. Chronic senescent changes
Continuous EEG monitoring
#VDRF
Patient intubated for airway protection in the ER after he was vomiting with seizure episode
Continue mechanical ventilation
Currently on 14/400/5/40%
Patient off of sedation, currently on IV fentanyl pushes
Aspiration precautions, vent adjustments as per vice president digital strategist
Continue SAT/SBT trial
Possible extubation today
Titrate FiO2/PEEP to keep SPO2 greater than 90%
#Sepsis
#UTI
#Leukocytosis
#Lactic acidosis
Patient septic at admission
Continue IV fluids
Prelim urine culture�gram-negative bacilli, Enterococcus
MRSA negative
Discontinue vancomycin
Continue IV Zosyn
Monitor fever curve, WBC count
Blood cultures pending
Urinalysis with evidence of UTI, pending cultures
Chest x-ray with no evidence of pneumonia
Elevated procalcitonin�3.19
Lactic acidosis resolved
#Chronic anemia
12 > 10 > 8.6
Iron 44, TIBC 173, percent sat 25, ferritin 1070
Anemia of chronic disease
Monitor CBC
#Heart failure with preserved ejection fraction
Recent echo�12/02/2024�ejection fraction�70%
Patient is septic and presentation, will hold furosemide
#Paroxysmal A-fib
EKG in ER-A-fib with RVR, rate at 130
Currently NSR
INR�4.06
Warfarin on hold
Not on any rate control meds
#Essential hypertension
Will hold amlodipine, minoxidil for today
Diet�patient intubated, NPO
#DVT prophylaxis�warfarin on hold
Full code
Anticipated Discharge: > 48 hours
Subjective/Interval History
-
Date of Service: January 24, 2025
No acute overnight events. Patient is off of sedation, intubated. He is responding and interactive.
Objective Data
-
Labs:
Laboratory Results
01/24/25 01/24/25
04:33 04:36
WBC 7.4
Hgb 8.6 L
Hct 24.9 L
Plt Count 260
PT 39.0 H
INR 4.06
APTT 69.4 H
HCO3 27.6
Sodium 140
Potassium 3.2 L
Chloride 106
Carbon Dioxide 27
BUN 31 H
Creatinine 1.0
Glucose 139 H
Calcium 8.0 L
Total Bilirubin 0.4
AST 25
ALT 18
Alkaline Phosphatase 49
Vital Signs:
Vital Signs
Temp Pulse Resp BP Pulse Ox
97.6 F 71 17 135/66 100
01/24/25 07:47 01/24/25 06:00 01/24/25 06:00 01/24/25 06:00 01/24/25 07:52
I&O
01/23/25 01/24/25 01/25/25
06:59 06:59 06:59
Intake Total 558.0 / 618.0 2655 / 2655
Output Total 1168 / 1168 950 / 950
Balance -610.0 / -550.0 1705 / 1705
Review of Systems
-
Unable to obtain full review of systems at this time due to: Patient Intubation
Physical Exam
-
General: No Apparent Distress
HEENT: Normocephalic, Atraumatic and Other (NG tube, ET tube in place)
Respiratory: Other (Mechanical breath sounds bilaterally)
Cardiac: Regular Rhythm and S1/S2
GI: Soft, Nontender, Nondistended and Normal Bowel Sounds
Genito-urinary: Bowden (With clear urine)
Skin: Warm and Dry
[2025-01-24] MEDS: TEGRETOL 600 MG TUBE ×2 (08:42→19:21)
[2025-01-24] MEDS: PROTONIX IV 40 MG IV (08:42)
[2025-01-24] MEDS: KEPPRA 1750 MG IV ×2 (08:43→19:22)
[2025-01-24] MEDS: VIMPAT 200 MG IV ×2 (08:43→19:22)
[2025-01-24] MEDS: NSS (PRESERVATIVE FREE) 10 ML IV (08:43)
[2025-01-24] MEDS: MIRALAX 17 GRAMS TUBE (08:44)
[2025-01-24 09:03] LABS: Iron 44 ug/dl (49-181)
--- NOTE | 2025-01-24 09:10 | W.PN.NEURO.1 ---
Addendum entered and electronically signed by Edward Edouard MD 01/24/25 13:33:
Studies reviewed.
I have personally examined the patient. I reviewed and agree with the HATCHERY SUPERVISOR's Note.
My addenda:
Awake, alert, interactive. No acute distress.
Speech unable to assess.
Follows 2-step requests w/o difficulty. No tremor.
Extra-ocular movements grossly intact.
Facial movements full and symmetric. Hearing intact to normal conversational volume.
Normal UE movements bilaterally.
Neck: full ROM.
Chest: no dyspnea
Heart: no JVD
Ext: (-) Clubbing, (-) Cyanosis, (-) Edema
IMPRESSIONS/RECOMMENDATIONS:
Abrupt onset of intractable epilepsy
Continue meds
Advance Cenobamate from 225 mg to 250 mg
Attempt to reduce sedation
D/W patient / family / nursing
All questions answered.
Will continue to follow patient.
Original Note:
Today's Communication / Plan
-
Patient should be continued on his usual antiseizure medications at their recent levels
Carbamazepine level is normal
Check levetiracetam level although most likely will be delayed in its return
Check EEG, completed
Advance Cenobamate dosing from 225 mg to 250 mg using the patient's outpatient supply of the medication
DVT prophylaxis with warfarin
Will follow.
Neuro Assessment/Plan
Assessment
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
He has failed combined therapy of levetiracetam, lacosamide, carbamazepine, valproic acid, and Cenobamate at 200 mg. Currently, it is unclear if the patient has been having continuous seizures after recent discharge and now developed an infectious
etiology for recurrent seizures
-EEG 01/22/25: Moderately to severely abnormal study for age based on bihemispheric burst-suppression pattern continuously during the study.
-EEG 01/23/25: Mild to moderate bihemispheric cortical dysfunction. No epileptiform features were demonstrated.
-Brain MRI 01/23/25: No acute intracranial abnormality. Chronic senescent changes. Motion limited exam.
-Labs: Carbamazepine 8.8, Urine gram negative bacilli, enterococcus species
I. Refractory epilepsy
II. Fever secondary to UTI
Plan
Patient should be continued on his usual antiseizure medications at their recent levels
Carbamazepine level is normal
Check levetiracetam level although most likely will be delayed in its return
Check EEG, completed
Advance Cenobamate dosing from 225 mg to 250 mg using the patient's outpatient supply of the medication
DVT prophylaxis with warfarin
Will follow.
Subjective/Objective
Subjective Data
Date of Service: January 24, 2025
No acute events overnight. Patient is intubated in the ICU, sedation on hold. Has eyes open spontaneously and follows simple commands.
Objective Data
Vital Signs
Temp Pulse Resp BP Pulse Ox
97.6 F 71 17 135/66 100
01/24/25 07:47 01/24/25 06:00 01/24/25 06:00 01/24/25 06:00 01/24/25 07:52
Lab Results
01/24/25 04:33
01/24/25 04:33
PT 39.0 Sec (11.4-14.6) H 01/24/25 04:33
INR 4.06 01/24/25 04:33
APTT 69.4 Sec (23.4-35.0) H 01/24/25 04:33
Sodium 140 mmol/L (135-145) 01/24/25 04:33
Potassium 3.2 mmol/L (3.5-5.1) L 01/24/25 04:33
BUN 31 mg/dl (9-20) H 01/24/25 04:33
Glucose 139 mg/dl (70-99) H 01/24/25 04:33
Calcium 8.0 mg/dl (8.4-10.2) L 01/24/25 04:33
Phosphorus 3.8 mg/dl (2.5-4.5) 01/23/25 03:36
Patient Allergies
hydralazine Allergy (Verified 01/22/25 09:44)
Unknown
pollen extracts Allergy (Verified 01/22/25 09:44)
nasal symptoms
Review of Systems
-
Unable to obtain full review of systems at this time due to: Patient Intubation
Physical Exam
-
General: Appears Chronically Ill
Eyes: No Ptosis and PERRLA
HEENT: Normocephalic and Atraumatic
Neck: Unable to Assess
Respiratory: Other (intubated)
GI: Non-distended
Extended Neurological Exam
Mood & Affect: Unable to Assess
Attention Span & Concentration: Other (opens eyes spontaneously. Follows simple commands.)
Memory: Unable to Assess
Tremor: Hand Tremor Absent and Head Tremor Absent
Involuntary Movement: None
Speech: Unable to Assess
Cranial Nerve II: Left Eye: Pupillary Reactivity Unremarkable, Pupillary Size Unremarkable and Unable to Assess
Cranial Nerve II: Right Eye: Pupillary Reactivity Unremarkable, Pupillary Size Unremarkable and Unable to Assess
Cranial Nerves III, IV, : Extraocular Movement: Unable to Assess
Cranial Nerve VII: Facial Symmetry: Normal Facial Symmetry
Cranial Nerve VIII: Hearing: Unable to Assess
Cranial Nerves IX, X: Palate Movement: Unable to Assess
Cranial Nerve XI: Shoulder Shrug: Unable to Assess
Cranial Nerve XII: Tongue Protusion: Unable to Assess
Muscle Strength, Overall: Reduced Throughout
Pronator Drift: Unable to Assess
Deep Tendon Reflexes: Unremarkable Throughout
Cold Sensation: Unable to Assess
Vibration Sensation: Unable to Assess
Touch Sensation: Unable to Assess
Coordination: Unable to Assess
Babinski Sign: Absent Bilaterally
Data Reviewed
-
CT Head: Report Reviewed and Image Reviewed
MRI Head: Report Reviewed and Image Reviewed
EEG: Report Reviewed
Labs: Report Reviewed
Reviewed with: Physician, Patient and Family
Old Records: Summarized
[2025-01-24 09:12] LABS: Total Iron Binding Capacity 173 ug/dl (261-462)
--- NOTE | 2025-01-24 09:42 | PTCARENOTE ---
pt wakes to name. following simple commands. ett in place ac mode on vent. pt waking up coughing waving hands pain med given as ordered. breath sounds diminished. og tube in place running tube feeding as ordered. ivf running. oral care done.
pt and daughter at bedside reviewed pt condition and plan of care.
[2025-01-24 10:25] LABS: Ferritin 1070.0 ng/ml (17.9-464.0)
--- NOTE | 2025-01-24 13:29 | CM ---
Remains intubated. IV/Zosyn and IV/seizure meds. NPO, considering feeding tube. Discharge POC: TBD after extubated and therapy evaluates.
--- NOTE | 2025-01-24 14:41 | PTCARENOTE ---
pt spont wean for 30 min. pt agitated at times tonguing ett. increase secretions and some periods of low resp rate/ apnea. watershed manager made aware. placed back on ac and fent given as ordered. pt family in room updated on pt condition.
[2025-01-24] MEDS: NSS 1000 IV (15:35)
[2025-01-24] MEDS: PRECEDEX 100 IV (15:35)
[2025-01-24] MEDS: FLOMAX 0.4 MG TUBE (17:45)
[2025-01-24] MEDS: DUONEB 3 ML INH (20:24)
[2025-01-24] MEDS: FLOVENT 110 MCG INHALER 4 PUFF INH (20:34)
[2025-01-24] MEDS: FLOVENT 110 MCG INHALER INH (20:36)
[2025-01-24] MEDS: NON-FORMULARY ITEM 200 MG TUBE (21:10)
[2025-01-24] MEDS: NON-FORMULARY ITEM 50 MG TUBE (21:11)
--- NOTE | 2025-01-24 21:15 | PTCARENOTE ---
Received patient agitated, overbreathing on the vent, reaching for the tube. RASS 2. Precedex gtt increased per order. B/l wrist restraints ongoing. Patient opens eyes to voice, PERRLA 3 mm, follows commands. Weak b/l hand grasps. SB 50s, BP stable,
normothermic. Palpable pedal and radial pulses b/l. 7.5 ETT, 24 at the lip. Vent settings 14/400/40%/5, saturating 100%. Lung sounds coarse and diminished throughout. Abdomen soft, nontender, positive bowel sounds. Osmolite 1.2 at 55 ml with 25 ml
flush. Formed, soft bowel movement and incontinent of urine. Cleaned up, sheets changed, repositioned, new #25 condom cath short applied. Foam on sacrum CDI. PIVs patent, WNL. NSS and precedex gtt ongoing per order. Mouth care done, hourly rounding
and patient safety checks ongoing.
[2025-01-25] VITALS (26 sets, daily range): BP systolic 103–178; BP diastolic 49–105; PULSE 39; BMI 21.7
--- NOTE | 2025-01-25 00:17 | PTCARENOTE ---
Patient repositioned, mouth care done. Otherwise assessment unchanged from previous, hourly rounding and patient safety checks ongoing.
[2025-01-25 04:31] LABS: Hematocrit 22.6 % (39.0-52.0); Hemoglobin 7.6 g/dL (13.0-18.0); Mean Corp Hgb Conc. 33.6 g/dL (33.0-37.0); Mean Corpuscular Volume 97.8 fL (80.0-94.0); Nucleated Red Blood Cells % 0 % (-); Platelet Count 227 10^3/uL (130-400); Red Cell Dist. Width 12.5 % (11.5-14.5)
--- NOTE | 2025-01-25 04:32 | PTCARENOTE ---
CHG bath done, labs sent, patient assisted with CHG bath. otherwise assessment unchanged from previous, hourly rounding and patient safety checks ongoing.
[2025-01-25 04:43] LABS: INR 2.55; PT 27.4 Sec (11.4-14.6)
[2025-01-25 04:44] LABS: APTT 52.7 Sec (23.4-35.0)
[2025-01-25 05:02] LABS: ALT (SGPT) 14 U/L (0-50); AST (SGOT) 19 U/L (17-59); Albumin 2.6 g/dl (3.5-5.0); Alkaline Phosphatase 46 U/L (38-126); Blood Urea Nitrogen 23 mg/dl (9-20); Calcium 7.5 mg/dl (8.4-10.2); Carbon Dioxide 25 mmol/L (22-30); Chloride 112 mmol/L (98-107); Estimated Creatinine Clearance 69 ml/min; Glucose 152 mg/dl (70-99); Magnesium 2.3 mg/dl (1.6-2.3); Potassium 4.3 mmol/L (3.5-5.1); Sodium 140 mmol/L (135-145); Total Protein 5.7 g/dl (6.3-8.2); Triglycerides 124 mg/dl (10-149); eGFR > 60.00
[2025-01-25 05:11] LABS: B.E. 1.1 mmol/L; HCO3 25.0 mmol/L (21-28); O2 Saturation % 100.0 % (94-98); PCO2 36 mmHg (35-48); PO2 191 mmHg (83-108)
[2025-01-25] MEDS: ZOSYN 50 IV ×3 (05:35→17:53)
[2025-01-25] MEDS: SUBLIMAZE 50 MCG IV (05:49)
--- NOTE | 2025-01-25 05:52 | PTCARENOTE ---
Patient very agitated, coughing nonstop and overbreathing the vent despite suction. When precedex increased to 0.2 mcg/kg/hr, heart rate drops to the high 30s. Fentanyl bolus given, repositioned, sheets and condom cath changed.
--- NOTE | 2025-01-25 06:42 | W.PN.HOSP.TC ---
Today's Communication/Plan
-
Continue IV Zosyn
Continue tube feeds
SAT/SBT
Assessment / Plan
Assessment / Plan
MPRESSION:
84-year-old male presenting to the ED with altered mental status/seizures.
PLAN:
#Acute metabolic encephalopathy
#Epilepsy
Likely breakthrough seizures versus infectious etiology versus autoimmune.
Neurology consulted
EEG with seizure burden
Recent hospital admission with change in the dosage of seizure medications
Full workup including paraneoplastic etiology done in the previous admission.
Also received 4/5 doses of IVIG at that time.
Lacosamide 200 mg IV every 12
Levetiracetam 1750 mg IV every 12
Carbamazepine 600 mg every 12, tube
Cenobamate increased to to 250 mg, daily , tube (not in formulary, patient's has it, home dose at 225 mg)
CT head�no acute intracranial abnormality
MRI brain - no acute intracranial abnormality. Chronic senescent changes
EEG�64 minutes� study suggestive of mild to moderate bihemispheric cortical dysfunction. No epileptiform features were demonstrated.
Continue AEDs
Appreciate neurology recs
#VDRF
Patient intubated for airway protection in the ER after he was vomiting with seizure episode
Continue mechanical ventilation
Currently on 14/400/5/40%
Continue SAT/SBT trial
Possible extubation today
Patient remains agitated during SAT's
Patient off of sedation, currently on Precedex, IV fentanyl pushes
Aspiration precautions, vent adjustments as per box spring maker
Titrate FiO2/PEEP to keep SPO2 greater than 90%
#Sepsis
#UTI
#Leukocytosis
#Lactic acidosis
Patient septic at admission
Continue IV fluids
Urine culture�Pseudomonas aeruginosa, Enterococcus faecalis
MRSA negative
Discontinue vancomycin
Continue IV Zosyn
Monitor fever curve, WBC count
Blood cultures pending
Urinalysis with evidence of UTI, pending cultures
Chest x-ray with no evidence of pneumonia
Elevated procalcitonin�3.19
Lactic acidosis resolved
#History of asthma
Continue DuoNebs
Continue budesonide
# Acute on chronic anemia
12 > 10 > 8.6 >7.6
Iron 44, TIBC 173, percent sat 25, ferritin 1070
Anemia of chronic disease
Monitor for signs of bleeding
Monitor CBC
Will transfuse if less than 7
#Heart failure with preserved ejection fraction
Recent echo�12/02/2024�ejection fraction�70%
Patient is septic and presentation, will hold furosemide
#Paroxysmal A-fib
EKG in ER-A-fib with RVR, rate at 130
Currently NSR
INR�2.55
Continue warfarin
Not on any rate control meds
#Essential hypertension
Will hold amlodipine, minoxidil for today
Diet�patient intubated, continue tube feeds, Osmolite
#DVT prophylaxis�warfarin/SCDs
Full code
Anticipated Discharge: > 48 hours
Subjective/Interval History
-
Date of Service: January 25, 2025
Patient is spontaneously opening his eyes, and is interactive. Remains agitated during SAT.
Objective Data
-
Labs:
Laboratory Results
01/25/25 01/25/25
04:16 05:03
WBC 8.4
Hgb 7.6 L
Hct 22.6 L
Plt Count 227
PT 27.4 H
INR 2.55
APTT 52.7 H
HCO3 25.0
Sodium 140
Potassium 4.3 D
Chloride 112 H
Carbon Dioxide 25
BUN 23 H
Creatinine 0.8
Glucose 152 H
Calcium 7.5 L
Total Bilirubin 0.3
AST 19
ALT 14
Alkaline Phosphatase 46
Vital Signs:
Vital Signs
Temp Pulse Resp BP Pulse Ox
96.8 F L 58 14 112/57 100
01/25/25 03:08 01/25/25 06:00 01/25/25 06:00 01/25/25 06:00 01/25/25 06:00
I&O
01/23/25 01/24/25 01/25/25
06:59 06:59 06:59
Intake Total 558.0 / 618.0 2655 / 2780 3575.9 / 3575.9
Output Total 1168 / 1168 950 / 950 1000 / 1000
Balance -610.0 / -550.0 1705 / 1830 2575.9 / 2575.9
Review of Systems
-
Unable to obtain full review of systems at this time due to: Patient Intubation
Physical Exam
-
General: No Apparent Distress
HEENT: Normocephalic, Atraumatic and Other (Endotracheal tube in place, NG tube in place)
Respiratory: Chest Tubes (Mechanical breath sounds bilaterally)
Cardiac: Regular Rhythm and S1/S2
GI: Soft, Nondistended and Normal Bowel Sounds
Genito-urinary: Bowden (With clear urine)
Skin: Warm and Dry
Neuro: Alert
--- NOTE | 2025-01-25 07:25 | PTCARENOTE ---
Received pt intubated with bilateral soft wrist restraints intact. He is awake and very agitated. Left FA with Precedex infusing. Right FA#18g protective catheter flushed and patent. He was informed of the plan of care to see if he can breath in his
own and hopefully removed the endotracheal tube. He nodded his head in understanding. He is intermittently tremulous, with some rhythmic eye twitching and still following instructions. He will not allow RN to swab his mouth or suction out his mouth.
He is bringing his hands to his face. He was instructed not to do that to prevent accidental removal of his breathing tube. Tube feeds were placed on hold for impending SBT. OGT secured to ETT @ 65cm.No residual. Condom catheter with yellow urine.
He was incontinent for a very large formed BM. Pericare provided. Lungs coarse tolerating ventilator via 7.5ETT [id number] right lip. Left cheek with dry scab. knee with intact scab. Sacral faom dressing removed due t soilage. Calazime cream
applied. Aspiration precautions maintained. Safe environment maintained.
[2025-01-25] MEDS: DUONEB 3 ML INH ×2 (07:39→19:23)
[2025-01-25] MEDS: FLOVENT 110 MCG INHALER 4 PUFF INH ×2 (07:40→19:23)
--- NOTE | 2025-01-25 08:01 | W.PN.INTV ---
Today's Communication / Plan
Recommendations
Mechanical ventilation � plan to extubate today
Precedex stopped
AEDs per neurology
Abx for UTI
Continue budesonide + DuoNebs given history of asthma
Neurology consulted, recs appreciated
Continue ICU level of care for this critically ill patient
Assessment
-
Assessment: 84-year-old male with a past medical history of right upper lobe lung cancer s/p resection, hyperlipidemia, hypertension, and epilepsy who presents with altered mental status and seizure activity. Patient was recently hospitalized from
12/27 - 01/17/2025 for status epilepticus requiring ICU. He underwent an LP on 01/01 showing elevated protein and was started on IVIG for possible autoimmune contribution to his seizures. He tolerated 4 out of 5 treatments before he had to stop due to
nausea and somnolence. He also had to have his Coumadin held a few times due to supratherapeutic INR. He was discharged home with home care; since being discharged he has been having altered mental status, where he does not speak on certain days
or he does speak but does not make sense. On the evening of 01/21, the patient had a few seizure events, first at around midnight and the second around 2 AM, where he was shaking in bed, with his legs crunched up and even screamed 1 time. He has
been taking his seizure medications and the 's been making sure that it has been taken daily with full compliance. Now since being here in the ER, he had an episode of vomiting and remained lethargic, and had to be intubated for airway
protection. He initially was afebrile to 99.5 �F but then developed a fever to 103.1 �F. He initially was hypertensive to 175/70, saturating 97% on room air with pulse rate 89. After he was intubated, Vimpat 200 mg was provided. EEG was performed
and showing continuous bihemispheric burst suppression pattern. Labs initially showed a lactate of 2.1. UA showed +3 leukocyte esterase with 80�90 urine WBC. Blood and urine cultures collected. CXR showed no signs of pneumonia. CT head showed
no acute intracranial abnormality. In the ER, he was given 1 L NS 0.9%, started on vancomycin, Zosyn and propofol and admitted to the ICU for further care. Cardiology Consultant services consulted for additional management/recommendations.
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
melanoma, impaired glucose tolerance, history of colon polyps
Impression:
#Status epilepticus - resolved
#Ventilator dependent respiratory failure (intubated 01/22/2025)
#Seizure disorder on multiple AEDs
#A-fib on Coumadin, currently NSR
#Hypertension
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
#CKD stage III
#History of melanoma involving the face s/p resection
#Ambulatory dysfunction
#History of COREY/CSA previously on BiPAP , no longer using since October 2020 after significant weight loss
#Mild intermittent asthma
#Aortic stenosis
Plan:
- Patient was found to be in status epilepticus, and since being discharged just a few days REQUISITION APPROVER, he was acting strange at home, not communicating as he normally does and one day prior to arrival was having seizure-like activity in bed, which
appeared to be tonic-clonic movements per the
- Patient was recommended to be transferred to [place] however the insisted to stay here at [facility] and declined transfer
- Patient is now intubated mainly for airway protection
- Patient currently off propofol since AM of 01/23
- Brain MRI performed on 01/23/2025 showed no acute intracranial abnormality
- EEG checked on 01/23 showed mild�moderate bihemispheric cortical dysfunction with no epileptiform features
- Unclear if the patient has an infection that has led to his recurrent seizure, as he does appear to have a UTI
- Urine culture is now growing Pseudomonas aeruginosa + Enterococcus faecalis
- His CXR does not appear to show any obvious consolidation
- Continue with broad-spectrum antibiotics via Zosyn (while being careful not to administer antibiotics which will lower the seizure threshold); follow-up blood cultures (NGTD); collect respiratory culture from ETT if decent sample can be obtained;
consider CT chest to evaluate for pneumonia as he could have some more subtle groundglass opacities versus tree-in-bud which may not be picked up on CXR
- Continue with mechanical ventilation with daily SAT/SBT if clinically appropriate --> plan to extubate today
- Maintain plateau pressure <30 and titrate FiO2 + PEEP to keep SpO2 >90-94%
- Continue aspiration precautions; keep HOB >30-45�
- prn nebulized bronchodilators - not currently bronchospastic
- Family says that the pt has Hx of asthma, and he has been having increased amounts of mucous REQUISITION APPROVER, and seems to be having mucous suctioned from ETT --> continue flovent + DuoNebs
- Oropharyngeal + deep ETT suctioning with subglottic as needed
- Daily CXR + blood gas
- Daily vent adjustments as needed based on blood gas and SaO2
- Defer antiepileptics to neurology � currently on Keppra 1750 IV q12hr, Vimpat 200 mg IV q12hr, and Xcopri 225 mg qPM --> raising Xcopri to 250mg qPM
- Maintain MAP>65
- Replete electrolytes with K>4, Mg>2
- Maintain euglycemia with goal BG 140-180
- Trend H/H and transfuse if needed to keep Hb>7g/dL; keep plt>20k, unless there is concern for bleeding then keep plt>50k
- DVT ppx: Given his INR is 2.55, I will resume his coumadin tonight; continue to trend INR - goal 2-3
Continue ICU level of care for this critically ill patient
Code status: Full code
Critical care statement: A total of 38 minutes of critical care time was provided for this patient today. This includes management of unstable vital signs, evaluation of the patient at bedside, reviewing the patient's pertinent medical records
including radiographs, microbiology, laboratory evaluations, and discussion with primary team, consultants, pharmacy, nutrition, physical therapy, case management, charge nurse, critical care nursing, and respiratory therapy.
Data:
CT head 01/22/2025: No acute intracranial abnormality noted.
Brain MRI 01/23/2025: No acute intracranial abnormality. Chronic senescent changes. Motion limited exam.
EEG 01/22/25: Moderately to severely abnormal study for age based on bihemispheric burst-suppression pattern continuously during the study.
EEG 01/23/25: Mild to moderate bihemispheric cortical dysfunction. No epileptiform features were demonstrated.
Subjective Dataa
Subjective Data
Date of Service:
Date of Service: January 25, 2025
Chief Complaint: Cardiology Consultant Follow Up
Subjective:
Patient was seen and evaluated today at bedside. Heart rate 83, BP 111/81 and saturating 100% on pressure support trial on 12/02 at 40% FiO2. He is breathing at 17 breaths/min with the VTe 334 mL and has PIP 12 cmH2O. he is awake, and able to follow
commands. He has been off Precedex drip since 8 AM. His morning Keppra dose has been held due to risk of oversedation.
Review of Systems
General: Other (Unobtainable as patient is intubated)
Objective Data
Data Reviewed
Vital Signs / I&O / Oxygen:
Vital Signs
Temp Pulse Resp BP Pulse Ox
98.2 F 84 18 158/58 100
01/25/25 07:24 01/25/25 08:13 01/25/25 08:13 01/25/25 08:09 01/25/25 08:13
Intake and Output
01/24/25 01/25/25 01/26/25
06:59 06:59 06:59
Intake Total 2655 / 2780 3575.9 / 3737.5 373.2 / 373.2
Output Total 950 / 950 1000 / 1000 175 / 175
Balance 1705 / 1830 2575.9 / 2737.5 198.2 / 198.2
SaO2 [CPAP/PSV] 100
SaO2 [A/C] 99
SaO2 100
Physical Exam
General: Respiratory Distress (negative), Comfortable, Chills (negative) and Sweats (negative)
HEENT: Normocephalic, Anicteric and Other (ETT in place)
Cardiovascular: S1-S2 and Peripheral Edema (negative)
Respiratory: Wheeze (negative), Crackles (negative), Rhonchi (negative), Stridor (negative) and ET Tube (Mechanical breath sounds heard bilaterally)
GI: Soft, Non Distended, Non Tender and Normal Bowel Sounds
Neurology: Tremors (negative) and Other (Easily arousable, following all commands)
Skin: Warm, Dry, Cyanosis (negative) and Jaundice (negative)
Labs/Micro/Reports
Lab Data
01/25/25 04:16
Laboratory Results
01/25/25 01/25/25
04:16 05:03
PT 27.4 H
INR 2.55
APTT 52.7 H
pH 7.45
pCO2 36
pO2 191 H
HCO3 25.0
O2 Delivery Level
Microbiology
01/22/25 10:02 Blood/Venous Blood Culture - Preliminary
No Growth in 72 hours- Final report to follow
01/22/25 12:34 Urine Urine Culture - Final
Pseudomonas aeruginosa
Enterococcus faecalis
01/22/25 10:42 Blood/Venous Blood Culture - Preliminary
No Growth in 48 hours- Final report to follow
01/24/25 04:37 Nose Nasal Screen MRSA (PCR) - Final
MRSA not detected - performed by PCR methodology.
[2025-01-25] MEDS: MIRALAX TUBE (08:25)
[2025-01-25] MEDS: PROTONIX IV 40 MG IV (08:26)
[2025-01-25] MEDS: NSS (PRESERVATIVE FREE) 10 ML IV (08:26)
[2025-01-25] MEDS: TEGRETOL 600 MG TUBE ×2 (08:34→20:29)
[2025-01-25] MEDS: VIMPAT 200 MG IV ×2 (09:39→20:33)
[2025-01-25] MEDS: NSS 1000 IV (10:07)
[2025-01-25 10:38] LABS: Hematocrit 23.1 % (39.0-52.0); Hemoglobin 8.3 g/dL (13.0-18.0)
[2025-01-25 10:47] LABS: B.E. 0.4 mmol/L; HCO3 23.4 mmol/L (21-28); O2 Saturation % 99.6 % (94-98); PCO2 30 mmHg (35-48); PO2 197 mmHg (83-108)
--- NOTE | 2025-01-25 11:00 | PTCARENOTE ---
Extubated to 4 liters nasal cannula. Pulse ox 100%. He had an upward gaze after extubation but remained responsive. Dr. Canales was present in the room at the time. Keppra being administered at this time.
[2025-01-25] MEDS: KEPPRA 1750 MG IV ×2 (11:04→20:30)
--- NOTE | 2025-01-25 11:47 | RESPNOTE ---
Pt extubated to O2 4L,without adversity, from CPAP 5 PS 5
--- NOTE | 2025-01-25 14:22 | W.PN.NEURO.1 ---
Today's Communication / Plan
-
Advance Cenobamate dosing from 225 mg to 250 mg using the patient's outpatient supply of the medication, increase again to 275 mg on January 31 and increase by 25 mg weekly until patient reaches 400 mg/day
Neuro Assessment/Plan
Assessment
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
He has failed combined therapy of levetiracetam, lacosamide, carbamazepine, valproic acid, and Cenobamate at 200 mg. Currently, it is unclear if the patient has been having continuous seizures after recent discharge and now developed an infectious
etiology for recurrent seizures
-EEG 01/22/25: Moderately to severely abnormal study for age based on bihemispheric burst-suppression pattern continuously during the study.
-EEG 01/23/25: Mild to moderate bihemispheric cortical dysfunction. No epileptiform features were demonstrated.
-Brain MRI 01/23/25: No acute intracranial abnormality. Chronic senescent changes. Motion limited exam.
-Labs: Carbamazepine 8.8, Urine gram negative bacilli, enterococcus species
I. Refractory epilepsy
II. Fever secondary to UTI
Plan
Continue carbamazepine, level is normal
Continue levetiracetam
Advance Cenobamate dosing from 225 mg to 250 mg using the patient's outpatient supply of the medication, increase again to 275 mg on January 31 and increase by 25 mg weekly until patient reaches 400 mg/day
DVT prophylaxis with warfarin
Will follow as outpatient.
Subjective/Objective
Subjective Data
Date of Service: January 25, 2025
Patient reports not having pain currently
Objective Data
Vital Signs
Temp Pulse Resp BP Pulse Ox
36.8 C 78 20 140/69 100
01/25/25 11:10 01/25/25 12:00 01/25/25 12:00 01/25/25 12:01/25/25 12:00
Lab Results
01/25/25 10:25
01/25/25 04:16
PT 27.4 Sec (11.4-14.6) H 01/25/25 04:16
INR 2.55 01/25/25 04:16
APTT 52.7 Sec (23.4-35.0) H 01/25/25 04:16
Sodium 140 mmol/L (135-145) 01/25/25 04:16
Potassium 4.3 mmol/L (3.5-5.1) D 01/25/25 04:16
BUN 23 mg/dl (9-20) H 01/25/25 04:16
Glucose 152 mg/dl (70-99) H 01/25/25 04:16
Calcium 7.5 mg/dl (8.4-10.2) L 01/25/25 04:16
Phosphorus 2.5 mg/dl (2.5-4.5) 01/25/25 04:16
Patient Allergies
hydralazine Allergy (Verified 01/22/25 09:44)
Unknown
pollen extracts Allergy (Verified 01/22/25 09:44)
nasal symptoms
Review of Systems
-
Unable to obtain full review of systems at this time due to: Patient Intubation
History Source: Patient
All other systems: Reviewed and negative
Physical Exam
-
General: No Apparent Distress and Intubated
Eyes: Round OU and No Ptosis
HEENT: Normocephalic and Atraumatic
Respiratory: Negative Accessory Resp Muscle Use
Cardiac: No JVD
Extremities: No Clubbing and No Cyanosis
Psych: Unable to Assess
Extended Neurological Exam
Mood & Affect: Unable to Assess
Attention Span & Concentration: Awake, Interactive and Other (opens eyes spontaneously. Follows simple commands.)
Memory: Unable to Assess
Tremor: Hand Tremor Absent and Head Tremor Absent
Involuntary Movement: None
Speech: Unable to Assess
Cranial Nerve II: Left Eye: Pupillary Size Unremarkable and Visual Brandt Grossly Intact
Cranial Nerve II: Right Eye: Pupillary Size Unremarkable and Visual Brandt Grossly Intact
Cranial Nerves III, IV, : Extraocular Movement: Grossly Intact
Cranial Nerve VII: Facial Symmetry: Normal Facial Symmetry
Cranial Nerve VIII: Hearing: Unremarkable Hearing to Normal Conversational Volume
Cranial Nerves IX, X: Palate Movement: Unable to Assess
Cranial Nerve XI: Shoulder Shrug: Unable to Assess
Cranial Nerve XII: Tongue Protusion: Unable to Assess
Gait & Station: Unable to Assess
Data Reviewed
-
Labs: Report Reviewed
Reviewed with: Physician, Nurse, Patient and Family
Old Records: Summarized
--- NOTE | 2025-01-25 15:00 | PTCARENOTE ---
Family at the bedside. Incontinent for bowel and bladder. Moderate amount of loose brown stool. Partial CHG bath provided. Face was then washed and shaved. He was repositioned. Awaiting swallow evaluation. Will place DHT as ordered if swallow
evaluation unsuccessful.
--- NOTE | 2025-01-25 19:00 | PTCARENOTE ---
Addendum entered by Darcy Rojas RN 01/25/25 23:18:
No change observed during rounds. Pt resting comfortably in bed at lowest position w/ HOB @30deg and monitor in place, all alarms audible and active.
Original Note:
Pt care assumed by this RN. Pt was confused about the mitts; Robin is easily reoriented. Pt is arousable to voice, responds appropriately with a slow, garbled and at times slurred speech. Full body tremors and an occasional upward gaze was observed.
Dobbhoff is in place with tubing out of reach. Pt is incontinent, dry flow pads placed on top of sheets. Warm blanket provided for comfort. Room close to RN station with doors open, bed in lowest position with HOB @ 30deg, and monitor in place.
[2025-01-25] MEDS: PULMICORT 0.5 MG INH (19:57)
[2025-01-25] MEDS: FLOMAX TUBE ×2 (20:28→22:49)
[2025-01-25] MEDS: COUMADIN 5 MG TUBE (20:29)
[2025-01-25] MEDS: NON-FORMULARY ITEM 200 MG TUBE (22:03)
[2025-01-25] MEDS: NON-FORMULARY ITEM 50 MG TUBE (22:04)
[2025-01-26] VITALS (32 sets, daily range): BP systolic 93–194; BP diastolic 48–99; PULSE 60–61; O2SAT 98–99; BMI 21.9
[2025-01-26] MEDS: NSS 1000 IV (00:55)
[2025-01-26] MEDS: ZOSYN 50 IV ×4 (00:56→18:05)
[2025-01-26 05:37] LABS: Hematocrit 21.4 % (39.0-52.0); Hemoglobin 7.1 g/dL (13.0-18.0); Mean Corp Hgb Conc. 33.2 g/dL (33.0-37.0); Mean Corpuscular Volume 98.6 fL (80.0-94.0); Nucleated Red Blood Cells % 0 % (-); Platelet Count 200 10^3/uL (130-400); Red Cell Dist. Width 12.3 % (11.5-14.5)
[2025-01-26 05:48] LABS: INR 1.61; PT 19.3 Sec (11.4-14.6)
[2025-01-26 05:59] LABS: ALT (SGPT) 12 U/L (0-50); AST (SGOT) 19 U/L (17-59); Albumin 2.3 g/dl (3.5-5.0); Alkaline Phosphatase 42 U/L (38-126); Blood Urea Nitrogen 11 mg/dl (9-20); Calcium 7.1 mg/dl (8.4-10.2); Carbon Dioxide 22 mmol/L (22-30); Chloride 115 mmol/L (98-107); Estimated Creatinine Clearance 92 ml/min; Glucose 96 mg/dl (70-99); Magnesium 2.0 mg/dl (1.6-2.3); Potassium 3.8 mmol/L (3.5-5.1); Sodium 141 mmol/L (135-145); Total Protein 5.3 g/dl (6.3-8.2); eGFR > 60.00
[2025-01-26] MEDS: POTASSIUM PHOSPHATE 259.0909 MEQ IV (06:23)
[2025-01-26] MEDS: NSS (PRESERVATIVE FREE) 10 ML IV (07:34)
[2025-01-26] MEDS: TEGRETOL 600 MG TUBE ×2 (07:34→19:20)
[2025-01-26] MEDS: NORVASC 2.5 MG TUBE (07:34)
[2025-01-26] MEDS: PROTONIX IV 40 MG IV (07:34)
[2025-01-26] MEDS: MIRALAX TUBE (07:34)
[2025-01-26] MEDS: KEPPRA 1750 MG IV ×2 (07:35→19:35)
[2025-01-26] MEDS: VIMPAT 200 MG IV ×2 (07:35→19:20)
[2025-01-26] MEDS: DUONEB 3 ML INH ×2 (07:37→20:19)
[2025-01-26] MEDS: PULMICORT 0.5 MG INH ×2 (07:37→20:19)
--- NOTE | 2025-01-26 07:39 | W.PN.HOSP.TC ---
Addendum entered and electronically signed by Devin Hills MD 01/28/25 09:13:
error: attestation note placed on wrong resident note->please see resident progress note from 01/27.
Aj Hills MD
Addendum entered and electronically signed by Devin Hills MD 01/27/25 21:58:
Attending Addendum-
I saw and evaluated the patient. I reviewed the resident�s note and agree with findings and plan as documented in the resident�s note. Sub: Seen with present. States he is nearing baseline. Patient intermittently dysarthric but states he feels
better. Feels fatigued. No seizure episodes overnight. Full 10 point ROS reviewed and negative except as documented Exam: Vitals reviewed in chart GEN-NAD heart RRR lungs clear abd soft LE no edema Neuro AAO x 2-3, dysarthria MS 5/5 sensation intact
Plan:
#TME
#Status Epilepticus
Neurology on board
CT head�no acute intracranial abnormality
MRI brain - no acute intracranial abnormality
EEG�64 minutes�No epileptiform features were demonstrated.
Recent hospital admission with change in the dosage of seizure medications
Full workup including paraneoplastic etiology done in the previous admission.
Also received 4/5 doses of IVIG at that time.
Continue with AEDs�
lacosamide
Levetiracetam
Carbamazepine
Cenobamate increased to to 250 mg- increase 25 mg weekly until 400 mg
QTc stable on telemetry
Speech cleared for IDDSI�6, soft bite-size solids with thin liquids
#VDRF
-Patient intubated for airway protection in the ER at arrival on 01/22
-extubated on 01/25
#Sepsis secondary to UTI
Blood culture�no growth
Urine culture�Pseudomonas aeruginosa, Enterococcus faecalis- sensi resulted
ET aspirate�klebsiella - sensi resulted
MRSA negative
Continue IV Zosyn�day 6
Lactic acidosis resolved
cipro probably best choice but will c/s ID due to QT prolongation and lowering seizure threshold
#History of asthma
Continue DuoNebs
Continue budesonide
# Acute on chronic anemia
trending down to 7.1
Anemia of chronic disease
Monitor for signs of bleeding, patient is on warfarin
Monitor CBC
Will transfuse if less than 7
#Heart failure with preserved ejection fraction
echo�5/5�ejection fraction�70%
Patient is septic and presentation, will hold furosemide
#Paroxysmal A-fib
Currently NSR
Subtherapeutic INR�1.7 but trending up
cont warfarin 5.5 (home dose) daily
Monitor INR, goal 2-3.
#Essential hypertension
Continue amlodipine
Diet�IDDSI�6
#DVT prophylaxis�warfarin
Full code->DNR
Dispo Eventual DC to SNF then possible hospice
ACP
Patient consented to discuss, was with , time spent explanation of advance directives, changes in health status, patient�s health care wishes if the patient becomes unable to make health decisions, goals of care, code status-CHANGE, and
prognosis 'he clearly stated he wanted to be a DNR prior to all this. I dont know what to do about hospice though. Can i decide later?' - 16 minutes
Time spent coordinating care, review of plan of care with resident, personally reviewed previous records in EMR, med rec, labs, radiology, d/w nursing, total time documented is exclusive of any additional time listed that was spent in advance
care planning discussion -�51 minutes
Original Note:
Today's Communication/Plan
-
Continue IV Zosyn
Start IDDSI 6 diet
Monitor INR
Monitor CBC
Assessment / Plan
Assessment / Plan
MPRESSION:
84-year-old male presenting to the ED with altered mental status/seizures.
PLAN:
#Acute metabolic encephalopathy
#Epilepsy
Likely breakthrough seizures versus infectious etiology
Neurology consulted
CT head�no acute intracranial abnormality
MRI brain - no acute intracranial abnormality. Chronic senescent changes
EEG�64 minutes� study suggestive of mild to moderate bihemispheric cortical dysfunction. No epileptiform features were demonstrated.
Recent hospital admission with change in the dosage of seizure medications
Full workup including paraneoplastic etiology done in the previous admission.
Also received 4/5 doses of IVIG at that time.
Continue with AEDs�lacosamide 200 mg IV every 12
Levetiracetam 1750 mg IV every 12
Carbamazepine 600 mg every 12
Cenobamate increased to to 250 mg, daily (not in formulary, patient's has it, home dose at 225 mg), increase again to 275 mg on January 31 and increase 25 mg weekly until patient reaches 400 mg
QTc stable on telemetry
Monitor levetiracetam levels
Speech cleared for IDDSI�6, soft bite-size solids with thin liquids
PT/OT
#VDRF
Patient intubated for airway protection in the ER at arrival on 01/22/2025
Patient extubated on 01/25/2025
#Sepsis
#UTI
#Leukocytosis
#Lactic acidosis
Patient septic at admission
Continue IV fluids
Blood culture�no growth
Urine culture�Pseudomonas aeruginosa, Enterococcus faecalis, sensitivities resulted.
ET aspirate�prelim, gram-negative
MRSA negative
Continue IV Zosyn�day 5
Monitor fever curve, WBC count
Chest x-ray with no evidence of pneumonia
Elevated procalcitonin�3.19
Lactic acidosis resolved
#History of asthma
Continue DuoNebs
Continue budesonide
# Acute on chronic anemia
12 > 10 >7. 1 > 8.5
Iron 44, TIBC 173, percent sat 25, ferritin 1070
Anemia of chronic disease
Monitor for signs of bleeding, patient is on warfarin
Monitor CBC
Will transfuse if less than 7
#Heart failure with preserved ejection fraction
Recent echo�12/02/2024�ejection fraction�70%
Patient is septic and presentation, will hold furosemide
#Paroxysmal A-fib
EKG in ER-A-fib with RVR, rate at 130
Currently NSR
Subtherapeutic INR�1.61
Patient was restarted on 5 mg warfarin yesterday, will increase it to 5.5 (home dose)
Monitor INR, goal 2-3.
Not on any rate control meds
#Essential hypertension
Continue amlodipine 2.5 mg
Diet�IDDSI�6
#DVT prophylaxis�warfarin
Full code
Anticipated Discharge: 24 - 48 hours
Subjective/Interval History
-
Date of Service: January 26, 2025
Patient was extubated yesterday afternoon.
Nursing reported 2 episodes of convulsive seizures, after extubation and overnight, lasting for a couple of minutes, self resolved. Did not have to use Ativan.
In the morning patient is awake in his bed, alert and interactive.
Objective Data
-
Labs:
Laboratory Results
01/26/25
04:47
WBC 6.6
Hgb 7.1 L
Hct 21.4 L
Plt Count 200
PT 19.3 H
INR 1.61
Sodium 141
Potassium 3.8
Chloride 115 H
Carbon Dioxide 22
BUN 11
Creatinine 0.6 L
Glucose 96
Calcium 7.1 L
Total Bilirubin 0.4
AST 19
ALT 12
Alkaline Phosphatase 42
Vital Signs:
Vital Signs
Temp Pulse Resp BP Pulse Ox
98.3 F 53 22 122/59 98
01/26/25 03:08 01/26/25 03:30 01/26/25 03:30 01/26/25 03:00 01/26/25 03:30
I&O
01/25/25 01/26/25 01/27/25
06:59 06:59 06:59
Intake Total 3575.9 / 3737.5 2448.2 / 2448.2
Output Total 1000 / 1000 175 / 175
Balance 2575.9 / 2737.5 2273.2 / 2273.2
Physical Exam
-
General: Well Developed, No Apparent Distress and Other (Slow and garbled speech)
HEENT: Normocephalic, Atraumatic and Other (Dobbhoff tube. Extraocular movements-negative for downward gaze)
Respiratory: Clear to Auscultation
Cardiac: Regular Rhythm and S1/S2
GI: Soft, Nontender, Nondistended and Normal Bowel Sounds
Skin: Warm and Dry
Neuro: Awake, Alert, AO x 3, Nonfocal/Grossly Intact and Other (AAO X1)
--- NOTE | 2025-01-26 08:04 | PTCARENOTE ---
pt received from previous rn- pt able to say name, he is at [facility] and month + year. pt speech slow and garbled at times, able to make needs known. full am care and incontinence care provided. nsr to sb with 1st degree on monitor. Dr. Vieyra at
bedside, poc discussed, aware dobhoff tube clogged, ok to wait for speech therapy eval. pt ot consulted. pt able to move all extremities, able to help turn in bed. all safety precautions in place.
--- NOTE | 2025-01-26 08:24 | W.PN.INTV ---
Today's Communication / Plan
Recommendations
Extubated yesterday, and is now breathing comfortably on room air saturating 99-100%
Continue aspiration precautions
AEDs per neurology
Abx for UTI and positive respiratory culture (follow-up species + sensitivities)
Continue budesonide + DuoNebs given history of asthma; case management consult to get nebulizer for home use � discharge home on budesonide 0.5 mg/mL, take 2 mL BID + DuoNebs BID
Neurology consulted, recs appreciated
Patient stable for downgrade out of ICU to IMU. Once patient has been downgraded to IMU, Metal Wire Technician/Pulmonary service will then sign off. Please call back with any questions or concerns.
Assessment
-
Assessment: 84-year-old male with a past medical history of right upper lobe lung cancer s/p resection, hyperlipidemia, hypertension, and epilepsy who presents with altered mental status and seizure activity. Patient was recently hospitalized from
12/27 - 01/17/2025 for status epilepticus requiring ICU. He underwent an LP on 01/01 showing elevated protein and was started on IVIG for possible autoimmune contribution to his seizures. He tolerated 4 out of 5 treatments before he had to stop due to
nausea and somnolence. He also had to have his Coumadin held a few times due to supratherapeutic INR. He was discharged home with home care; since being discharged he has been having altered mental status, where he does not speak on certain days
or he does speak but does not make sense. On the evening of 01/21, the patient had a few seizure events, first at around midnight and the second around 2 AM, where he was shaking in bed, with his legs crunched up and even screamed 1 time. He has
been taking his seizure medications and the 's been making sure that it has been taken daily with full compliance. Now since being here in the ER, he had an episode of vomiting and remained lethargic, and had to be intubated for airway
protection. He initially was afebrile to 99.5 �F but then developed a fever to 103.1 �F. He initially was hypertensive to 175/70, saturating 97% on room air with pulse rate 89. After he was intubated, Vimpat 200 mg was provided. EEG was performed
and showing continuous bihemispheric burst suppression pattern. Labs initially showed a lactate of 2.1. UA showed +3 leukocyte esterase with 80�90 urine WBC. Blood and urine cultures collected. CXR showed no signs of pneumonia. CT head showed
no acute intracranial abnormality. In the ER, he was given 1 L NS 0.9%, started on vancomycin, Zosyn and propofol and admitted to the ICU for further care. Metal Wire Technician services consulted for additional management/recommendations.
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
melanoma, impaired glucose tolerance, history of colon polyps
Impression:
#Status epilepticus - resolved
#Ventilator dependent respiratory failure (intubated 01/22/2025, extubated 01/25/2025)
#Seizure disorder on multiple AEDs
#A-fib on Coumadin, currently NSR
#Hypertension
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
#CKD stage III
#History of melanoma involving the face s/p resection
#Ambulatory dysfunction
#History of COREY/CSA previously on BiPAP , no longer using since October 2020 after significant weight loss
#Mild intermittent asthma
#Aortic stenosis
Plan:
- Patient was found to be in status epilepticus, and since being discharged just a few days SLITTER SCORER, he was acting strange at home, not communicating as he normally does and one day prior to arrival was having seizure-like activity in bed, which
appeared to be tonic-clonic movements per the
- Patient was recommended to be transferred to [place] however the insisted to stay here at [facility] and declined transfer
- Patient was intubated mainly for airway protection, and was extubated on 01/25 and is currently breathing comfortably on room air saturating 99%
- Brain MRI performed on 01/23/2025 showed no acute intracranial abnormality
- EEG checked on 01/23 showed mild�moderate bihemispheric cortical dysfunction with no epileptiform features
- Unclear if the patient has an infection that has led to his recurrent seizure, as he does appear to have a UTI plus his respiratory culture is now growing GNR
- Urine culture grew Pseudomonas aeruginosa + Enterococcus faecalis
- His CXR does not appear to show any obvious consolidation
- Continue with broad-spectrum antibiotics via Zosyn (while being careful not to administer antibiotics which will lower the seizure threshold); follow-up blood cultures (NGTD); follow up respiratory culture from ETT (growing GNR); consider CT
chest to evaluate for pneumonia as he could have some more subtle groundglass opacities versus tree-in-bud which may not be picked up on CXR - given that he is breathing comfortably on room air, no need for CT at this time
- Keep SpO2 >90-94%
- Continue aspiration precautions; keep HOB >30-45�
- prn nebulized bronchodilators - not currently bronchospastic
- Family says that the pt has Hx of asthma, and he has been having increased amounts of mucous SLITTER SCORER, and seems to be having mucous suctioned from ETT --> continue flovent + DuoNebs
- Case management consulted to get him a nebulizer for home use, and he should be discharged home on budesonide + DuoNebs both BID
- Defer antiepileptics to neurology � currently on Keppra 1750 IV q12hr, Vimpat 200 mg IV q12hr, and Xcopri 250 mg qPM
- Maintain MAP>65
- Replete electrolytes with K>4, Mg>2
- Maintain euglycemia with goal BG 140-180
- Trend H/H and transfuse if needed to keep Hb>7g/dL; keep plt>20k, unless there is concern for bleeding then keep plt>50k
- DVT ppx: Continue coumadin and trend his INR; goal 2-3
Patient stable for downgrade out of ICU to IMU. Once patient has been downgraded to IMU, Metal Wire Technician/Pulmonary service will then sign off. Please call back with any questions or concerns, and thank you for allowing us to be involved in the care of
this patient.
Code status: Full code
Data:
CT head 01/22/2025: No acute intracranial abnormality noted.
Brain MRI 01/23/2025: No acute intracranial abnormality. Chronic senescent changes. Motion limited exam.
EEG 01/22/25: Moderately to severely abnormal study for age based on bihemispheric burst-suppression pattern continuously during the study.
EEG 01/23/25: Mild to moderate bihemispheric cortical dysfunction. No epileptiform features were demonstrated.
Total time spent today was 58 minutes for this encounter. Time includes reviewing laboratory test/imaging results, reviewing pertinent medical records, obtaining and reviewing medical history, performing an appropriate exam, ordering medications,
tests and procedures. Time also includes documentation of this encounter, coordinating patient care and communicating with other healthcare professionals. Total time does not include separately billed tests performed on this date of service.
Subjective Dataa
Subjective Data
Date of Service:
Date of Service: January 26, 2025
Chief Complaint: Metal Wire Technician Follow Up
Subjective:
Patient seen and evaluated today at bedside. Patient's Santa at bedside. Patient is resting in chair in no acute distress. He says he feels better. Still very weak and unable to get up out of chair without two-person assist. Current
heart rate 63, BP 151/94 and saturating 100% on room air. Continues to have occasional arm twitching.
Review of Systems
General: Other (Negative unless mentioned above)
Objective Data
Data Reviewed
Vital Signs / I&O / Oxygen:
Vital Signs
Temp Pulse Resp BP Pulse Ox
98.6 F 61 17 145/56 99
01/26/25 08:00 01/26/25 09:23 01/26/25 09:23 01/26/25 09:23 01/26/25 09:23
Intake and Output
01/25/25 01/26/25 01/27/25
06:59 06:59 06:59
Intake Total 3575.9 / 3737.5 2448.2 / 2572.7 369.0 / 369.0
Output Total 1000 / 1000 175 / 175
Balance 2575.9 / 2737.5 2273.2 / 2397.7 369.0 / 369.0
SaO2 [CPAP/PSV] 100
SaO2 [A/C] 99
SaO2 99
Nasal Cannula flow liters per 2
minute
Physical Exam
General: Respiratory Distress (negative), Comfortable, Chills (negative) and Sweats (negative)
HEENT: Normocephalic and Anicteric
Cardiovascular: S1-S2 and Peripheral Edema (negative)
Respiratory: Wheeze (negative), Crackles (negative), Rhonchi (negative) and Stridor (negative)
GI: Soft, Non Distended, Non Tender and Normal Bowel Sounds
Neurology: Awake, Alert and Tremors (negative)
Skin: Warm, Dry, Cyanosis (negative) and Jaundice (negative)
Labs/Micro/Reports
Lab Data
01/26/25 08:26
01/26/25 04:47
Laboratory Results
01/25/25 01/26/25
10:25 04:47
PT 19.3 H
INR 1.61
pH 7.50 H
pCO2 30 L
pO2 197 H
HCO3 23.4
O2 Delivery Level
Microbiology
01/22/25 10:02 Blood/Venous Blood Culture - Preliminary
No Growth in 4 days- Final report to follow
01/24/25 21:10 Endotracheal Respiratory Culture - Preliminary
Gram negative bacilli
01/24/25 21:10 Endotracheal Gram Stain - Preliminary
01/22/25 10:42 Blood/Venous Blood Culture - Preliminary
No Growth in 72 hours- Final report to follow
01/22/25 12:34 Urine Urine Culture - Final
Pseudomonas aeruginosa
Enterococcus faecalis
01/24/25 04:37 Nose Nasal Screen MRSA (PCR) - Final
MRSA not detected - performed by PCR methodology.
[2025-01-26 08:34] LABS: Hematocrit 25.0 % (39.0-52.0); Hemoglobin 8.5 g/dL (13.0-18.0)
--- NOTE | 2025-01-26 09:20 | CM ---
Chart reviewed. Case Management will continue to monitor and support discharge plan when determined
--- NOTE | 2025-01-26 12:00 | PTCARENOTE ---
Addendum entered by Pattie Pereira RN 01/26/25 17:20:
late entry dobhoff removed
Original Note:
pt worked with pt and ot, oob to chair for approx 2 hours. seen by speech, started on diet, and pt verbalized understanding to modified diet. assessment unchanged further.
--- NOTE | 2025-01-26 12:02 | PTOTSP ---
ST Acute Care Evaluation
Pt currently presents with clinical signs of fairly functional oral parameters but suspected pharyngeal and esophageal dysphagia as evidenced by occasional throat clearing with ingestion of both thin liquids as well as hard dry solids and fairly
persistent belching s/p ingestion of thin liquids.
Recommendations:
- Soft bite sized solids (IDDSI 6) with thin liquids (IDDSI 0) with meds whole in puree.
- Aspiration precautions: HOB upright for all PO intake, small bites/sips, small single sips, and reduce distractions.
- Reflux precautions: HOB upright after PO intake for at leas 60 minutes, consider small frequent meals, eat/drink slowly, alternate solids/liquids.
- Consider reflux medications and/or GI consult.
- SYSTEMS SOFTWARE MANAGER to f/u re: diet tolerance, implementation of compensatory strategies, and to determine if pt would benefit from an instrumental swallow study.
[2025-01-26] MEDS: FLOMAX 0.4 MG TUBE (16:20)
[2025-01-26] MEDS: VASOTEC 2.5 MG IV (16:21)
[2025-01-26] MEDS: COUMADIN 0.5 MG PO (16:21)
[2025-01-26] MEDS: COUMADIN 5 MG PO (16:21)
--- NOTE | 2025-01-26 16:26 | PTCARENOTE ---
pt bp 187/69- Dr. Canales and Dr. Bennett aware, vasotec given as per order. assessment unchanged further.
[2025-01-26] MEDS: NORVASC 2.5 MG PO (18:05)
[2025-01-26] MEDS: LONITEN 10 MG TUBE (19:21)
--- NOTE | 2025-01-26 20:00 | PTCARENOTE ---
Received pt resting in bed, eating dinner. AAOx3. Garbled/slurred and slow speech at times. Other times, speech more clear. Able to make needs known. No seizure activity noted. WRIGHT. Gen. weak. SB/SR on tele, HR 50-60s. BP elevated 170s/70 -
scheduled minoxidil given. Will monitor closely. +1 gen anasarca. SCDs maintained. On RA. Lungs CTA. Occ. non productive cough noted. Spo2 98%. Ate about 60% of his dinner. Soft/bite sized diet. Took pills whole without problem. + bowel sounds.
Condom cath with yellow urine output. Sacral foam intact. Assisting with turns to reposition.
[2025-01-26] MEDS: NON-FORMULARY ITEM 200 MG TUBE (21:30)
[2025-01-26] MEDS: NON-FORMULARY ITEM 50 MG TUBE (21:31)
[2025-01-27] VITALS (13 sets, daily range): BP systolic 107–161; BP diastolic 46–92; BMI 22.0
[2025-01-27] MEDS: ZOSYN 50 IV ×4 (00:55→17:30)
[2025-01-27 04:12] LABS: Hematocrit 21.4 % (39.0-52.0); Hemoglobin 7.1 g/dL (13.0-18.0); Mean Corp Hgb Conc. 33.2 g/dL (33.0-37.0); Mean Corpuscular Volume 99.1 fL (80.0-94.0); Nucleated Red Blood Cells % 0 % (-); Platelet Count 242 10^3/uL (130-400); Red Cell Dist. Width 12.1 % (11.5-14.5)
[2025-01-27 04:40] LABS: INR 1.70; PT 20.2 Sec (11.4-14.6)
[2025-01-27 04:51] LABS: ALT (SGPT) 18 U/L (0-50); AST (SGOT) 24 U/L (17-59); Albumin 2.8 g/dl (3.5-5.0); Alkaline Phosphatase 51 U/L (38-126); Blood Urea Nitrogen 10 mg/dl (9-20); Calcium 8.2 mg/dl (8.4-10.2); Carbon Dioxide 23 mmol/L (22-30); Chloride 109 mmol/L (98-107); Estimated Creatinine Clearance 70 ml/min; Glucose 94 mg/dl (70-99); Magnesium 2.1 mg/dl (1.6-2.3); Potassium 4.5 mmol/L (3.5-5.1); Sodium 136 mmol/L (135-145); Total Protein 6.0 g/dl (6.3-8.2); eGFR > 60.00
[2025-01-27] MEDS: DUONEB 3 ML INH ×2 (07:36→19:56)
[2025-01-27] MEDS: PULMICORT 0.5 MG INH ×2 (07:36→19:56)
[2025-01-27] MEDS: MIRALAX TUBE (09:17)
[2025-01-27] MEDS: LONITEN 10 MG TUBE (09:17)
[2025-01-27] MEDS: TEGRETOL 600 MG TUBE (09:17)
[2025-01-27] MEDS: KEPPRA 1750 MG IV ×2 (09:18→19:36)
[2025-01-27] MEDS: NORVASC 5 MG TUBE (09:18)
[2025-01-27] MEDS: NSS (PRESERVATIVE FREE) 10 ML IV (09:19)
[2025-01-27] MEDS: PROTONIX IV 40 MG IV (09:20)
[2025-01-27] MEDS: VIMPAT 200 MG IV ×2 (09:20→19:36)
--- NOTE | 2025-01-27 09:24 | W.PN.NEURO.1 ---
Today's Communication / Plan
-
continue present management, spoke with patient and re: placement vs hospice
Neuro Assessment/Plan
Assessment
appears this presenting seizure provoked due to UTI
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
epilepsy. did not respond to IVIG.
He has failed combined therapy of levetiracetam, lacosamide, carbamazepine, valproic acid, and Cenobamate at 200 mg. patient and will not consider surgical eval/VNS placement.
01/27 with numerous admissions for seizures and other acute illnesses, gradually more difficulty recovering, apparent decline over the past few years, patient feeling as if he is in custodial from the illnesses, and his reaching limits of being
able to take care of him at home, we spoke extensively about placement vs hospice.
-EEG 01/22/25: Moderately to severely abnormal study for age based on bihemispheric burst-suppression pattern continuously during the study.
-EEG 01/23/25: Mild to moderate bihemispheric cortical dysfunction. No epileptiform features were demonstrated.
-Brain MRI 01/23/25: No acute intracranial abnormality. Chronic senescent changes. Motion limited exam.
-Labs 11/24: Carbamazepine 10.8, LEV 44
I. Refractory epilepsy
II. Fever secondary to UTI
Plan
Continue carbamazepine, level is normal
Continue levetiracetam
Cenobamate 250 mg daily using the patient's outpatient supply of the medication, increase again to 275 mg on January 31 and increase by 25 mg weekly every Monday until patient reaches 400 mg/day
DVT prophylaxis with warfarin
Will follow as outpatient.
Subjective/Objective
Subjective Data
Date of Service: January 27, 2025
seen this morning, late note. no further seizures.
Objective Data
Vital Signs
Temp Pulse Resp BP Pulse Ox
36.8 C 75 23 126/49 95
01/27/25 08:08 01/27/25 09:18 01/27/25 07:40 01/27/25 09:18 01/27/25 07:40
Lab Results
01/27/25 03:41
01/27/25 03:41
PT 20.2 Sec (11.4-14.6) H 01/27/25 03:41
INR 1.70 01/27/25 03:41
APTT 52.7 Sec (23.4-35.0) H 01/25/25 04:16
Sodium 136 mmol/L (135-145) 01/27/25 03:41
Potassium 4.5 mmol/L (3.5-5.1) 01/27/25 03:41
BUN 10 mg/dl (9-20) 01/27/25 03:41
Glucose 94 mg/dl (70-99) 01/27/25 03:41
Calcium 8.2 mg/dl (8.4-10.2) L 01/27/25 03:41
Phosphorus 2.7 mg/dl (2.5-4.5) 01/27/25 03:41
Patient Allergies
hydralazine Allergy (Verified 01/22/25 09:44)
Unknown
pollen extracts Allergy (Verified 01/22/25 09:44)
nasal symptoms
--- NOTE | 2025-01-27 13:15 | PTCARENOTE ---
pt confused conversation at times , pleasant , tolerating diet , NSR on monitor , his hemoglobin down to 7.1 , no signs of bleeding , no hypotension , at bedside , pt is IMU level of care
--- NOTE | 2025-01-27 15:10 | PTOTSP ---
Speech Language Pathology
Pt seen for dysphagia tx. Pt sitting in recliner upon arrival. present at bedside. and pt denied any difficulty with P.O. intake this date. P.O. trials of regular solids and thin liquids provided. Adequate mastication, bolus
formation, and A-P transit noted with no oral residue. No overt signs of aspiration.
Recommend:
(1) Upgrade to regular solids/thin liquids
(2) General aspiration precautions
(3) Meds as tolerated
(4) RAG INSPECTOR to follow, likely x1, to ensure diet tolerance
--- NOTE | 2025-01-27 16:31 | CM ---
CM consult for DME for home: Nebulizer, mask and tubing. Order in process. f
[2025-01-27] MEDS: COUMADIN 0.5 MG PO (17:29)
[2025-01-27] MEDS: COUMADIN 5 MG PO (17:29)
[2025-01-27] MEDS: FLOMAX 0.4 MG PO (17:30)
--- NOTE | 2025-01-27 19:00 | W.PN.HOSP.TC ---
Addendum entered and electronically signed by Devin Hills MD 01/28/25 09:12:
Attending Addendum-
I saw and evaluated the patient. I reviewed the resident�s note and agree with findings and plan as documented in the resident�s note. Sub: Seen with present. States he is nearing baseline. Patient intermittently dysarthric but states he feels
better. Feels fatigued. No seizure episodes overnight. Full 10 point ROS reviewed and negative except as documented Exam: Vitals reviewed in chart GEN-NAD heart RRR lungs clear abd soft LE no edema Neuro AAO x 2-3, dysarthria MS 5/5 sensation intact
Plan:
#TME
#Status Epilepticus
Neurology on board
CT head�no acute intracranial abnormality
MRI brain - no acute intracranial abnormality
EEG�64 minutes�No epileptiform features were demonstrated.
Recent hospital admission with change in the dosage of seizure medications
Full workup including paraneoplastic etiology done in the previous admission.
Also received 4/5 doses of IVIG at that time.
Continue with AEDs�
lacosamide
Levetiracetam
Carbamazepine
Cenobamate increased to to 250 mg- increase 25 mg weekly until 400 mg
QTc stable on telemetry
Speech cleared for IDDSI�6, soft bite-size solids with thin liquids
#VDRF
-Patient intubated for airway protection in the ER at arrival on 01/22
-extubated on 01/25
#Sepsis secondary to UTI
Blood culture�no growth
Urine culture�Pseudomonas aeruginosa, Enterococcus faecalis- sensi resulted
ET aspirate�klebsiella - sensi resulted
MRSA negative
Continue IV Zosyn�day 6
Lactic acidosis resolved
cipro probably best choice but will c/s ID due to QT prolongation and lowering seizure threshold
#History of asthma
Continue DuoNebs
Continue budesonide
# Acute on chronic anemia
trending down to 7.1
Anemia of chronic disease
Monitor for signs of bleeding, patient is on warfarin
Monitor CBC
Will transfuse if less than 7
#Heart failure with preserved ejection fraction
echo�5/5�ejection fraction�70%
Patient is septic and presentation, will hold furosemide
#Paroxysmal A-fib
Currently NSR
Subtherapeutic INR�1.7 but trending up
cont warfarin 5.5 (home dose) daily
Monitor INR, goal 2-3.
#Essential hypertension
Continue amlodipine
Diet�IDDSI�6
#DVT prophylaxis�warfarin
Full code->DNR
Dispo Eventual DC to SNF then possible hospice
ACP
Patient consented to discuss, was with , time spent explanation of advance directives, changes in health status, patient�s health care wishes if the patient becomes unable to make health decisions, goals of care, code status-CHANGE, and
prognosis 'he clearly stated he wanted to be a DNR prior to all this. I dont know what to do about hospice though. Can i decide later?' - 16 minutes
Time spent coordinating care, review of plan of care with resident, personally reviewed previous records in EMR, med rec, labs, radiology, d/w nursing, total time documented is exclusive of any additional time listed that was spent in advance
care planning discussion -�51 minutes
Original Note:
Today's Communication/Plan
-
infectious disease referal
Blood culture
Assessment / Plan
Assessment / Plan
MPRESSION:
84-year-old male presenting to the ED with altered mental status/seizures.
PLAN:
Sepsis
#UTI
#Leukocytosis
#Lactic acidosis
Patient septic at admission
Continue IV fluids
Blood culture�no growth
Urine culture�Pseudomonas aeruginosa, Enterococcus faecalis, sensitivities resulted.
ET aspirate�prelim, gram-negative
MRSA negative
Continue IV Zosyn�day 5
Monitor fever curve, WBC count
Chest x-ray with no evidence of pneumonia
Elevated procalcitonin�3.19
Lactic acidosis resolved
#Epilepsy
Likely breakthrough seizures versus infectious etiology
Neurology consulted
CT head�no acute intracranial abnormality
MRI brain - no acute intracranial abnormality. Chronic senescent changes
EEG�64 minutes� study suggestive of mild to moderate bihemispheric cortical dysfunction. No epileptiform features were demonstrated.
Recent hospital admission with change in the dosage of seizure medications
Full workup including paraneoplastic etiology done in the previous admission.
Also received 4/5 doses of IVIG at that time.
Continue with AEDs�lacosamide 200 mg IV every 12
Levetiracetam 1750 mg IV every 12
Carbamazepine 600 mg every 12
Cenobamate increased to to 250 mg, daily (not in formulary, patient's has it, home dose at 225 mg), increase again to 275 mg on January 31 and increase 25 mg weekly until patient reaches 400 mg
QTc stable on telemetry
Monitor levetiracetam levels
Speech cleared for IDDSI�6, soft bite-size solids with thin liquids
PT/OT
#VDRF
Patient intubated for airway protection in the ER at arrival on 01/22/2025
Patient extubated on 01/25/2025
#History of asthma
Continue DuoNebs
Continue budesonide
# Acute on chronic anemia
12 > 10 >7. 1
Iron 44, TIBC 173, percent sat 25, ferritin 1070
Anemia of chronic disease
Monitor for signs of bleeding, patient is on warfarin
Monitor CBC
Will transfuse if less than 7
#Heart failure with preserved ejection fraction
Recent echo�12/02/2024�ejection fraction�70%
Patient is septic and presentation, will hold furosemide
#Paroxysmal A-fib
EKG in ER-A-fib with RVR, rate at 130
Currently NSR
Subtherapeutic INR�1.61
Patient was restarted on 5 mg warfarin yesterday, will increase it to 5.5 (home dose)
Monitor INR, goal 2-3.
Not on any rate control meds
#Essential hypertension
Amlodipine 5mg discontinued.
Diet�IDDSI�6
#DVT prophylaxis�warfarin
Full code
Anticipated Discharge: > 48 hours
Subjective/Interval History
-
Date of Service: January 27, 2025
In the morning patient is awake in his bed, alert and interactive. Afebrile.
Objective Data
-
Labs:
01/27/25 03:41
01/27/25 03:41
Laboratory Results
PT 20.2 Sec (11.4-14.6) H 01/27/25 03:41
INR 1.70 01/27/25 03:41
APTT 52.7 Sec (23.4-35.0) H 01/25/25 04:16
pH 7.50 (7.35-7.45) H 01/25/25 10:25
pCO2 30 mmHg (35-48) L 01/25/25 10:25
pO2 197 mmHg (83-108) H 01/25/25 10:25
HCO3 23.4 mmol/L (21-28) 01/25/25 10:25
Lactic Acid Cancelled 01/22/25 22:00
Total Bilirubin 0.4 mg/dl (0.2-1.3) 01/27/25 03:41
AST 24 U/L (17-59) 01/27/25 03:41
ALT 18 U/L (0-50) 01/27/25 03:41
Alkaline Phosphatase 51 U/L (38-126) 01/27/25 03:41
Vital Signs:
Vital Signs
Temp Pulse Resp BP Pulse Ox
98.1 F 66 20 135/92 99
01/27/25 15:25 01/27/25 13:00 01/27/25 13:00 01/27/25 12:00 01/27/25 08:30
I&O
01/26/25 01/27/25 01/28/25
06:59 06:59 06:59
Intake Total 2448.2 / 2572.7 739.0 / 739.0 250 / 250
Output Total 175 / 175 650 / 650 250 / 250
Balance 2273.2 / 2397.7 89.0 / 89.0 0 / 0
Review of Systems
-
History Source: Family ()
All other systems: Reviewed and negative
Constitutional: Reports No Symptoms
EENT: Reports No Symptoms Reported
Respiratory: Reports No Symptoms
Cardiac: Reports No Symptoms
Abdomen/GI: Reports No Symptoms
Genitourinary: Reports No Symptoms
Musculoskeletal: Reports No Symptoms
Skin: Reports No Symptoms
Neuro: Reports No Symptoms
Endocrine: Reports No Symptoms
Hematologic / Lymphatic: Reports No Symptoms
Allergy / Immunology: Reports No Symptoms
Physical Exam
-
General: No Apparent Distress
HEENT: Normocephalic
Respiratory: Decreased Breath Sounds (right side upper and lower lobe )
Cardiac: Regular Rhythm
GI: Nontender
Musculoskeletal: No Clubbing
Skin: Warm
Hematologic / Lymphatic: No Lymphadenopathy
Psych: Calm
[2025-01-27] MEDS: LONITEN 10 MG PO (19:37)
[2025-01-27] MEDS: TEGRETOL 600 MG PO (19:39)
--- NOTE | 2025-01-27 19:40 | PTCARENOTE ---
Assumed care at 1900. Patient received lying in bed, awake, alert, oriented but forgetful. No apparent signs of distress or discomfort. He currently denies pain, no SOB or CP, no N/V. He was set up for dinner and ate approx 60% of tray. HOB up 90
degrees, aspiration precautions. Takes oral meds with sips of water without difficulty. 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 SR on CM. Bed in low and locked position, call urban within reach.
--- NOTE | 2025-01-27 19:56 | PTCARENOTE ---
Vital signs pulled from 1400. Unable to verify vitals from [id number].
--- NOTE | 2025-01-27 21:00 | PTCARENOTE ---
Patient incontinent of large amount of urine, saturated. Partial bath, skin care, pericare. New condom catheter donned. Linens changed.
[2025-01-27] MEDS: NON-FORMULARY ITEM 200 MG PO (21:43)
[2025-01-27] MEDS: NON-FORMULARY ITEM 50 MG PO (21:45)
[2025-01-28] VITALS (10 sets, daily range): BP systolic 99–137; BP diastolic 45–74; PULSE 67; O2SAT 99; BMI 21.3
[2025-01-28] MEDS: ZOSYN 50 IV ×5 (00:05→23:43)
--- NOTE | 2025-01-28 00:15 | PTCARENOTE ---
Patient attempting to get OOB. States that he has to void. Reminded that he has a condom catheter and redirected. Very forgetful and states that his should be here. Reminded of time of day, that it is late and he is in the hospital. Calms with
reassurance. Dozing off/on t/o night.
[2025-01-28 04:48] LABS: Hematocrit 22.0 % (39.0-52.0); Hemoglobin 7.5 g/dL (13.0-18.0); Mean Corp Hgb Conc. 34.1 g/dL (33.0-37.0); Mean Corpuscular Volume 96.1 fL (80.0-94.0); Nucleated Red Blood Cells % 0 % (-); Platelet Count 211 10^3/uL (130-400); Red Cell Dist. Width 12.0 % (11.5-14.5)
[2025-01-28 05:05] LABS: INR 2.29; PT 25.3 Sec (11.4-14.6)
[2025-01-28 05:12] LABS: ALT (SGPT) 21 U/L (0-50); AST (SGOT) 25 U/L (17-59); Albumin 2.6 g/dl (3.5-5.0); Alkaline Phosphatase 48 U/L (38-126); Blood Urea Nitrogen 10 mg/dl (9-20); Calcium 8.0 mg/dl (8.4-10.2); Carbon Dioxide 25 mmol/L (22-30); Chloride 108 mmol/L (98-107); Estimated Creatinine Clearance 80 ml/min; Glucose 119 mg/dl (70-99); Potassium 4.3 mmol/L (3.5-5.1); Sodium 136 mmol/L (135-145); Total Protein 5.7 g/dl (6.3-8.2); Triglycerides 85 mg/dl (10-149); eGFR > 60.00
--- NOTE | 2025-01-28 07:00 | PTCARENOTE ---
Report given verbally to Jefferson brower RN. Questions answered.
[2025-01-28] MEDS: DUONEB 3 ML INH ×2 (07:31→19:02)
[2025-01-28] MEDS: PULMICORT 0.5 MG INH ×2 (07:31→19:02)
[2025-01-28] MEDS: NSS (PRESERVATIVE FREE) 10 ML IV (08:37)
[2025-01-28] MEDS: PROTONIX IV 40 MG IV (08:37)
[2025-01-28] MEDS: MIRALAX 17 GRAMS PO (08:37)
[2025-01-28] MEDS: TEGRETOL 600 MG PO ×2 (08:37→19:58)
[2025-01-28] MEDS: NORVASC 5 MG PO (08:38)
[2025-01-28] MEDS: KEPPRA 1750 MG IV ×2 (08:38→19:58)
[2025-01-28] MEDS: LONITEN 10 MG PO ×2 (08:38→19:58)
[2025-01-28] MEDS: VIMPAT 200 MG IV ×2 (08:39→20:00)
--- NOTE | 2025-01-28 09:22 | CON.ID ---
Consultation
-
Date/Time Consultation Requested: January 27, 20251910
Date/Time Consultation Performed: January 28, 2025924
Requesting Provider: Dr. Keyshawn Santo
Performing Provider: Dr. Regina Dawkins
Reason for Consultation: Pseudomonas and Enterococcus UTI
Chief Complaint / Past History
History of Present Illness
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
antiseizure medications adjusted and he was discharged to home. He returned to the hospital on January 22 due to change in mental status and witnessed seizure activity while in bed In ED he had 1 episode of emesis. He was intubated for airway
protection. He developed fever up to 103.1, white count of 14.7 on day of admission. Serial chest x-rays clear lungs. Sputum positive Klebsiella erogenous. UA positive leukocyte esterase, 80-90 white blood cells, urine culture Pseudomonas,
Enterococcus faecalis. He is currently on Zosyn. Patient was extubated January 25. MRI of the brain no acute pathology. His mental status has improved. Patient could not recall events prior to admission. He reports no history of frequent UTIs. No
dysuria. He did have urinary frequency at home. No flank pain. He denies current cough or shortness of breath. He is feeling better overall.
Past History
Additional Past Medical History:
Hypertension
Afib
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
HLD
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
Diverticulitis
Sleep apnea
Facial melanoma resection
Impaired glucose tolerance
Bilateral cataract surgeries
Allergy History:
hydralazine Allergy (Verified 01/22/25 09:44)
Unknown
pollen extracts Allergy (Verified 01/22/25 09:44)
nasal symptoms
Medications Reviewed: Yes
Current Antibiotics:
Zosyn
Social History
Tobacco: Non-Smoker
Alcohol: None
Drug: None
Personal:
Review of Systems
Review of Systems
General: Negative Chills
HEENT: Negative Sinus Problems, Headache or Pharyngitis
Respiratory: Negative Dyspnea or Cough
Gasteroenterology: Negative Diarrhea
Genital / Urological: Negative Dysuria or Flank Pain
Endocrine: Weakness
Neurological: Negative Dizziness
All systems: All other systems were reviewed and were negative
Vital Signs
Temp Pulse Resp BP Pulse Ox
97.9 F 78 14 127/49 98
01/28/25 07:21 01/28/25 08:38 01/28/25 07:33 01/28/25 08:38 01/28/25 07:33
Physical Exam
Physical Exam
Constitutional: Chronically Ill
Head: Other (No frontal or max or sinus tenderness)
Eyes: No Conjunctival Hemorrhage and Sclera Anicteric
Cardiovascular: Regular Rate and S1/S2
Pulmonary: Clear
Gastrointestinal: Soft, Non Tender, Non Distended and Normal Bowel Sounds
Genito-Urinary: Bowden and Clear Urine; Negative CVA Tenderness
Extremities: Negative Edema
Neurological: AO x 3
Lab / Diagnostic Study Results
01/28/25 04:38
01/28/25 04:38
Abs Immat Gran (auto) 0.1 10^3/uL (0-0.05) H 01/28/25 04:38
Absolute Neuts (auto) 3.6 10^3/uL (1.4-6.5) 01/28/25 04:38
Absolute Lymphs (auto) 1.2 10^3/uL (1.2-3.4) 01/28/25 04:38
Absolute Monos (auto) 0.5 10^3/uL (0.1-0.6) 01/28/25 04:38
Absolute Basos (auto) 0.0 10^3/uL (0-0.2) 01/28/25 04:38
Immature Gran % 0.9 % (0-0.5) H 01/28/25 04:38
Neutrophils % 64.1 % (42.2-75.2) 01/28/25 04:38
Lymphocytes % 21.4 % (20.5-51.1) 01/28/25 04:38
Monocytes % 9.7 % (1.7-9.3) H 01/28/25 04:38
Eosinophils % 3.4 % (0-6) 01/28/25 04:38
Basophils % 0.5 % (0-2) 01/28/25 04:38
PT 25.3 Sec (11.4-14.6) H 01/28/25 04:38
INR 2.29 01/28/25 04:38
Lactic Acid Cancelled 01/22/25 22:00
Procalcitonin 3.19 ng/ml (0.0-0.25) H* 01/23/25 03:36
Ur Squamous Epith Cells 11-15 /LPF (Few) 01/22/25 12:34
Microbiology Results
Micro:
01/24/25 21:10 Respiratory Culture - Final
Endotracheal Klebsiella aerogenes
Gram Stain - Final
01/22/25 10:42 Blood Culture - Final
Blood/Venous No Growth - Final Report
01/22/25 10:02 Blood Culture - Final
Blood/Venous No Growth - Final Report
01/22/25 12:34 Urine Culture - Final
Urine Pseudomonas aeruginosa
Enterococcus faecalis
01/24/25 04:37 Nasal Screen MRSA (PCR) - Final
Nose MRSA not detected - performed by PCR methodology.
01/25/25 CXR: No focal consolidation or pneumothorax
01/23/25 Brain MRI: No acute intracranial abnormality. Chronic senescent changes. Motion limited exam.
01/22/25 CXR: The lungs are clear
Assessment / Plan
# Pseudomonas . E. faecalis UTI
# Fever/leukocytosis resolved.
- Today is last day of Zosyn to complete 7d course.
# Aspiration pneumonitis without PNA (CXR clear)
- Sputum Klebsiella aerogenes
- No need to treat
# Refractory seizure disorder
- Many abx's can lower seizure threshold.
Avoid prolonged abx use.
ID will sign off. Call with questions.
--- NOTE | 2025-01-28 09:40 | PTCARENOTE ---
pt aaox3. forgetful at times. stating he is going home today. room air condom cath in place.
--- NOTE | 2025-01-28 10:19 | CM ---
Documentation and script faxed to [facility] for Nebulizer compressor, Nebulizer kit, tubing and mask. Requested equipment be delivered to Room 408-1. Patient to be transferred.
--- NOTE | 2025-01-28 11:11 | CM ---
Contact at [employer] is Brown @ # [phone] and .
--- NOTE | 2025-01-28 13:00 | PTCARENOTE ---
Received report from Jefferson. Pt transferred into room 408-1. Pt oriented to room, at bedside. No complaints at this time, bed alarm on and call urban within reach.
--- NOTE | 2025-01-28 16:58 | W.PN.HOSP.TC ---
Addendum entered and electronically signed by Devin Hills MD 01/28/25 21:00:
Attending Addendum-
I saw and evaluated the patient. I reviewed the resident�s note and agree with findings and plan as documented in the resident�s note. Sub: Seen with present. patient is feeling greatly improved today. Feels fatigued. No seizure episodes
overnight. Full 10 point ROS reviewed and negative except as documented Exam: Vitals reviewed in chart GEN-NAD heart RRR lungs clear abd soft LE no edema Neuro AAO x 3, intermittant slurred speech, MS 5/5 sensation intact
Plan:
#TME
#Multifactorial
transfer to tele
Neurology on board
MRI brain-no acute intracranial abnormality
EEG�64 minutes�No epileptiform features were demonstrated.
Continue with AEDs�
lacosamide
Levetiracetam
Carbamazepine
Cenobamate increased to to 250 mg- increase 25 mg weekly until 400 mg (MAX)-per neuro
QTc stable on telemetry
Speech cleared for IDDSI�6, soft bite-size solids with thin liquids
#VDRF
-Patient intubated for airway protection in the ER at arrival on 01/22
-extubated on 01/25
#Sepsis secondary to UTI
Blood culture�no growth
Urine culture�Pseudomonas aeruginosa, Enterococcus faecalis- sensi resulted
ET aspirate�klebsiella - sensi resulted - no need to treat
MRSA negative
completed course of Zosyn 02/03
appreciate ID input
#History of asthma
Continue DuoNebs
Continue budesonide
# Acute on chronic anemia
trending up to 7.5
Anemia of chronic disease
Monitor for signs of bleeding, patient is on warfarin
Monitor CBC
Will transfuse if less than 7
#Heart failure with preserved ejection fraction
not in AE
echo�5/5�ejection fraction�70%
cont lasix
#Paroxysmal A-fib
Currently NSR
now therapeutic INR
cont warfarin 5.5 (home dose) daily
Monitor INR, goal 2-3.
#Essential hypertension
Continue amlodipine, clonidine, minoxidil
Diet�IDDSI�6
#DVT prophylaxis�warfarin
Full code->DNR
Dispo Eventual DC to SNF then may consider hospice DC in am d/w CM
Time spent coordinating care, review of plan of care with resident, personally reviewed records in EMR, med rec, consults, notes, labs, radiology, d/w nursing and � 52 mins
Original Note:
Today's Communication/Plan
-
Continue Warfarin 5.5 MG
Assessment / Plan
Assessment / Plan
MPRESSION:
84-year-old male presenting to the ED with altered mental status/seizures.
PLAN:
Sepsis
#UTI
#Leukocytosis
#Lactic acidosis
Patient septic at admission
Continue IV fluids
Blood culture�no growth
Urine culture�Pseudomonas aeruginosa, Enterococcus faecalis, sensitivities resulted.
ET aspirate�klebsiella aeruginosa, gram-negative
MRSA negative
Continue IV Zosyn�day 7th
Monitor fever curve, WBC count
Chest x-ray with no evidence of pneumonia
Elevated procalcitonin�3.19
Lactic acidosis resolved
#Epilepsy
Likely breakthrough seizures versus infectious etiology
Neurology consulted
CT head�no acute intracranial abnormality
MRI brain - no acute intracranial abnormality. Chronic senescent changes
EEG�64 minutes� study suggestive of mild to moderate bihemispheric cortical dysfunction. No epileptiform features were demonstrated.
Recent hospital admission with change in the dosage of seizure medications
Full workup including paraneoplastic etiology done in the previous admission.
Also received 4/5 doses of IVIG at that time.
Continue with AEDs�lacosamide 200 mg IV every 12
Levetiracetam 1750 mg IV every 12
Carbamazepine 600 mg every 12
Cenobamate increased to to 250 mg, daily (not in formulary, patient's has it, home dose at 225 mg), increase again to 275 mg on January 31 and increase 25 mg weekly until patient reaches 400 mg
QTc stable on telemetry
Monitor levetiracetam levels
Speech cleared for IDDSI�6, soft bite-size solids with thin liquids
PT/OT
#VDRF
Patient intubated for airway protection in the ER at arrival on 01/22/2025
Patient extubated on 01/25/2025
# Acute on chronic anemia
12 > 10 >7. 1 >7.5
Iron 44, TIBC 173, percent sat 25, ferritin 1070
Anemia of chronic disease
Monitor for signs of bleeding, patient is on warfarin
Monitor CBC
Will transfuse if less than 7
#Heart failure with preserved ejection fraction
Recent echo�12/02/2024�ejection fraction�70%
Patient is septic and presentation, will hold furosemide
#Paroxysmal A-fib
EKG in ER-A-fib with RVR, rate at 130
Currently NSR
Subtherapeutic INR�1.61
Patient was restarted on 5 mg warfarin yesterday, will increase it to 5.5 (home dose)
Monitor INR, goal 2-3.
Not on any rate control meds
#History of asthma
Continue DuoNebs
Continue budesonide
#Essential hypertension
Amlodipine 5mg discontinued.
Diet�IDDSI�6
#DVT prophylaxis�warfarin
Full code
Anticipated Discharge: > 48 hours
Subjective/Interval History
-
Date of Service: January 28, 2025
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 In the morning at 8.30m AM patient is awake, obtain history from the patient, alert and interactive. Afebrile, no SOB, fever.
Objective Data
-
Labs:
Laboratory Results
01/28/25
04:38
PT 25.3 H
INR 2.29
Sodium 136
Potassium 4.3
Chloride 108 H
Carbon Dioxide 25
BUN 10
Creatinine 0.7
Glucose 119 H
Calcium 8.0 L
Total Bilirubin 0.3
AST 25
ALT 21
Alkaline Phosphatase 48
Vital Signs:
Vital Signs
Temp Pulse Resp BP Pulse Ox
98.2 F 70 16 130/64 100
01/28/25 15:00 01/28/25 15:00 01/28/25 15:00 01/28/25 15:00 01/28/25 15:00
I&O
01/27/25 01/28/25 01/29/25
06:59 06:59 06:59
Intake Total 739.0 / 739.0 590 / 590 100 / 100
Output Total 650 / 650 600 / 600
Balance 89.0 / 89.0 -10 / -10 100 / 100
Review of Systems
-
All other systems: Reviewed and negative
Constitutional: Reports No Symptoms
EENT: Reports No Symptoms Reported
Respiratory: Reports No Symptoms
Cardiac: Reports No Symptoms
Abdomen/GI: Reports No Symptoms
Breast: Reports No Symptoms
Genitourinary: Reports No Symptoms
Musculoskeletal: Reports No Symptoms
Skin: Reports No Symptoms
Neuro: Reports No Symptoms
Endocrine: Reports No Symptoms
Hematologic / Lymphatic: Reports No Symptoms
Allergy / Immunology: Reports No Symptoms
Physical Exam
-
General: No Apparent Distress
Respiratory: Clear to Auscultation
Cardiac: Irregular Rhythm and Murmur (Systolic murmur at pulmonic, aortic area. )
GI: Soft and Nontender
Musculoskeletal: No Clubbing
Skin: Warm
Hematologic / Lymphatic: No Lymphadenopathy
[2025-01-28] MEDS: COUMADIN 0.5 MG PO (18:35)
[2025-01-28] MEDS: COUMADIN 5 MG PO (18:35)
[2025-01-28] MEDS: FLOMAX 0.4 MG PO (18:35)
[2025-01-28] MEDS: NON-FORMULARY ITEM 200 MG PO (22:28)
[2025-01-28] MEDS: NON-FORMULARY ITEM 50 MG PO (22:28)
[2025-01-29] VITALS (7 sets, daily range): BP systolic 121–146; BP diastolic 50–84
[2025-01-29] MEDS: ZOSYN 50 IV (05:22)
--- NOTE | 2025-01-29 06:59 | W.PN.HOSP.TC ---
Addendum entered and electronically signed by Devin Hills MD 01/29/25 21:21:
Attending Addendum-
I saw and evaluated the patient. I reviewed the resident�s note and agree with findings and plan as documented in the resident�s note. Sub: Called to besdise stat due to CIMS unresponive episode post meds. Patient already starting to come to. 'I
feel ok doc i don't know what happened' has slurred speech. sugars WNL stat CT head ordered-neg, Seen with present. Full 10 point ROS reviewed and negative except as documented limited due to presumed post ictal state Exam: Vitals reviewed in
chart GEN-NAD heart RRR lungs clear abd soft LE no edema Neuro AAO x 2, slurred speech, MS 5/5 sensation intact
Plan:
# ACUTE CIMS
- seems related to meds vs recurrent seizure episode
- d/w neuro poor prognosis no need to repeat EEG
- hospice appropriate
- repeat UA
- STAT CT - neg
#TME
#Multifactorial
Neurology on board
MRI brain-no acute intracranial abnormality
EEG�64 minutes�No epileptiform features were demonstrated.
Continue AEDs�
Lacosamide
Levetiracetam
Carbamazepine
Cenobamate increased to to 250 mg- increase 25 mg weekly until 400 mg (MAX)-per neuro
QTc stable on telemetry
Speech cleared for IDDSI�6, soft bite-size solids with thin liquids
#VDRF
-Patient intubated for airway protection in the ER at arrival on 01/22
-extubated on 01/25
#Sepsis secondary to UTI
Blood culture�no growth
Urine culture�Pseudomonas aeruginosa, Enterococcus faecalis
ET aspirate�klebsiella- no need to treat
MRSA negative
completed course of Zosyn on 01/28
appreciate ID input
#History of asthma
Continue DuoNebs
Continue budesonide
# Acute on chronic anemia
trending up to 7.6
Anemia of chronic disease
Monitor for signs of bleeding, patient is on warfarin
Monitor CBC
Will transfuse if less than 7
#Heart failure with preserved ejection fraction
not in AE
echo�5/5�ejection fraction�70%
cont lasix
#Paroxysmal A-fib
Currently NSR
now therapeutic INR
cont warfarin 5.5 (home dose) daily
Monitor INR, goal 2-3.
#Essential hypertension
Continue amlodipine, clonidine, minoxidil
Diet�IDDSI�6
#DVT prophylaxis�warfarin
Full code->DNR
Dispo Eventual DC to SNF then hospice DC in am d/w CM
ACP
Patient consented to discuss, was with time spent explanation of advance directives, changes in health status, patient�s health care wishes if the patient becomes unable to make health decisions, goals of care, code status, and prognosis
amenable to hospice but unable to do home hospice. will start comfort care measures. - 16 minutes
Time spent coordinating care, review of plan of care with resident, personally reviewed previous records in EMR, med rec, labs, radiology, d/w nursing, family total time documented is exclusive of any additional time listed that was spent in advance
care planning discussion -�51 minutes
Original Note:
Today's Communication/Plan
-
Case management follow up
urinalysis result pending
Assessment / Plan
Assessment / Plan
MPRESSION:
84-year-old male presenting to the ED with altered mental status/seizures.
PLAN:
Epilepsy
Likely breakthrough seizures versus infectious etiology
Neurology consulted
CT head today �no acute intracranial abnormality
MRI brain - no acute intracranial abnormality. Chronic senescent changes
EEG�64 minutes� study suggestive of mild to moderate bihemispheric cortical dysfunction. No epileptiform features were demonstrated.
Also received 4/5 doses of IVIG at that time.
Continue with AEDs�lacosamide 200 mg IV every 12
Levetiracetam 1750 mg IV every 12
Carbamazepine 600 mg every 12
Cenobamate increased to to 250 mg, daily (not in formulary, patient's has it, home dose at 225 mg), increase again to 275 mg on January 31 and increase 25 mg weekly until patient reaches 400 mg
Monitor levetiracetam levels
Speech cleared for IDDSI�6, soft bite-size solids with thin liquids
PT/OT
Sepsis
#UTI
#Leukocytosis
#Lactic acidosis
Patient septic at admission
Continue IV fluids
Blood culture�no growth
Urine culture�Pseudomonas aeruginosa, Enterococcus faecalis, sensitivities resulted.
ET aspirate�klebsiella aeruginosa, gram-negative
Monitor fever curve, WBC count
Chest x-ray with no evidence of pneumonia
Elevated procalcitonin�3.19
Lactic acidosis resolved
#VDRF
Patient intubated for airway protection in the ER at arrival on 01/22/2025
Patient extubated on 01/25/2025
# Acute on chronic anemia
12 > 10 >7. 1 >7.6
Iron 44, TIBC 173, percent sat 25, ferritin 1070
Anemia of chronic disease
Monitor for signs of bleeding, patient is on warfarin
Monitor CBC
Will transfuse if less than 7
#Heart failure with preserved ejection fraction
Recent echo�12/02/2024�ejection fraction�70%
Patient is septic and presentation, will hold furosemide
#Paroxysmal A-fib
EKG in ER-A-fib with RVR, rate at 130
Currently NSR
Therapeutic INR- 2.5
warfarin 5.5 (home dose) CONTINUE
Monitor INR, goal 2-3.
Not on any rate control meds
#History of asthma
Continue DuoNebs
Continue budesonide
#Essential hypertension
Amlodipine 5mg discontinued.
Diet�IDDSI�6
#DVT prophylaxis�warfarin
Dont resuscitate
Anticipated Discharge: 24 - 48 hours
Subjective/Interval History
-
Date of Service: January 29, 2025
84 yr M today morning he developed confusion after receiving the anti epileptic medications includes cenobamate 25mg, Carbamazepine 400mg , Lacosamide 200mg. He started to have jitteriness, eye rolling upwards, dizziness for 10 minutes followed by
vomiting once. He didnt experience weakness, slurred speech. Vitals recorded BP 132/84, IL:92, POG- 147MG/DL. He developed similar episode 1/2 hr later.
Objective Data
-
Vital Signs:
Vital Signs
Temp Pulse Resp BP Pulse Ox
98.5 F 79 18 141/66 97
01/29/25 03:10 01/29/25 03:10 01/29/25 03:10 01/29/25 03:10 01/29/25 03:10
I&O
01/27/25 01/28/25 01/29/25
06:59 06:59 06:59
Intake Total 739.0 / 739.0 590 / 590 340 / 340
Output Total 650 / 650 600 / 600 300 / 300
Balance 89.0 / 89.0 -10 / 10 40 / 40
Review of Systems
-
History Source: Patient and Family
Constitutional: Reports No Symptoms
EENT: Reports No Symptoms Reported
Respiratory: Reports Cough
Cardiac: Reports No Symptoms
Abdomen/GI: Reports Nausea and Vomiting
Genitourinary: Reports No Symptoms
Musculoskeletal: Reports No Symptoms
Skin: Reports No Symptoms
Neuro: Reports Dizzy, Lightheadedness and Seizures (Jitteriness,, eye ball rolling upwards, eye twitching for 10 mins)
Endocrine: Reports No Symptoms
Hematologic / Lymphatic: Reports No Symptoms
Allergy / Immunology: Reports No Symptoms
Physical Exam
-
HEENT: PERRLA
Cardiac: Regular Rhythm and S1/S2
GI: Soft and Nontender
Musculoskeletal: No Clubbing
Neuro: Other (jitteriness, Eye ball rolling upwards, )
Hematologic / Lymphatic: No Lymphadenopathy
Psych: Confused
[2025-01-29] MEDS: PULMICORT 0.5 MG INH (07:38)
[2025-01-29 07:49] LABS: Hematocrit 22.4 % (39.0-52.0); Hemoglobin 7.6 g/dL (13.0-18.0); Mean Corp Hgb Conc. 33.9 g/dL (33.0-37.0); Mean Corpuscular Volume 96.1 fL (80.0-94.0); Nucleated Red Blood Cells % 0 % (-); Platelet Count 261 10^3/uL (130-400); Red Cell Dist. Width 12.0 % (11.5-14.5)
[2025-01-29] MEDS: VIMPAT 200 MG IV (07:59)
[2025-01-29] MEDS: NORVASC 5 MG PO (08:00)
[2025-01-29] MEDS: TEGRETOL 600 MG PO ×2 (08:00→21:55)
[2025-01-29] MEDS: MIRALAX 17 GRAMS PO (08:00)
[2025-01-29] MEDS: PROTONIX 40 MG PO (08:00)
[2025-01-29] MEDS: LONITEN 10 MG PO ×2 (08:01→21:56)
[2025-01-29 08:12] LABS: ALT (SGPT) 19 U/L (0-50); AST (SGOT) 21 U/L (17-59); Albumin 2.9 g/dl (3.5-5.0); Alkaline Phosphatase 53 U/L (38-126); Blood Urea Nitrogen 7 mg/dl (9-20); Calcium 8.3 mg/dl (8.4-10.2); Carbon Dioxide 24 mmol/L (22-30); Chloride 108 mmol/L (98-107); Estimated Creatinine Clearance 68 ml/min; Glucose 96 mg/dl (70-99); Potassium 4.5 mmol/L (3.5-5.1); Sodium 136 mmol/L (135-145); Total Protein 6.0 g/dl (6.3-8.2); eGFR > 60.00
[2025-01-29 09:08] LABS: Glucose - Point of Care 147 mg/dl (70-99)
[2025-01-29 09:08] LABS: INR 2.50; PT 27.4 Sec (11.4-14.6)
[2025-01-29] MEDS: CATAPRES-TTS-2 0.2 MG TRANSDERM (11:02)
[2025-01-29] MEDS: KEPPRA 1750 MG IV (12:20)
[2025-01-29] MEDS: COUMADIN 0.5 MG PO (17:36)
[2025-01-29] MEDS: COUMADIN 5 MG PO (17:36)
[2025-01-29] MEDS: FLOMAX 0.4 MG PO (17:36)
--- NOTE | 2025-01-29 17:49 | PTCARENOTE ---
Pt received morning medications at 0800, approximately 30-45 minutes later pt eyes fixed upwards, garbled speech, but able to answer appropriately and follow commands. Ability to respond began to decline. VSS. BS 147. EKG performed. Pt had 2
episodes of vomiting. Notified resident. Resident at bedside. Ordered CT head, UA and neurology consult. Neurology had discussions of hospice with at bedside. CT performed. After, noted pt worsening. Pt had eyes closed, eyes and face twitching,
not responsive to verbal stimuli, minimally responsive to sternal rub. Notified resident. Resident and MD to bedside and pt beginning to come to. No new orders. Pt slowly returning to baseline, pt still confused at times and drowsy. Worked with PT
to get to the chair for a few hours. Seen by speech. Condom catheter removed. SCDs on. Bed alarm on. Pt resting comfortably in bed, makes no complaints at this time.
--- NOTE | 2025-01-29 21:11 | W.PN.NEURO.1 ---
Today's Communication / Plan
-
palliative care/hospice. no further work up for events.
Neuro Assessment/Plan
Assessment
appears this presenting seizure provoked due to UTI
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
epilepsy. did not respond to IVIG.
He has failed combined therapy of levetiracetam, lacosamide, carbamazepine, valproic acid, and Cenobamate at 200 mg. patient and will not consider surgical eval/VNS placement.
01/27 with numerous admissions for seizures and other acute illnesses, gradually more difficulty recovering, apparent decline over the past few years, patient feeling as if he is in fci from the illnesses, and his reaching limits of being
able to take care of him at home, we spoke extensively about placement vs hospice.
-EEG 01/22/25: Moderately to severely abnormal study for age based on bihemispheric burst-suppression pattern continuously during the study.
-EEG 01/23/25: Mild to moderate bihemispheric cortical dysfunction. No epileptiform features were demonstrated.
-Brain MRI 01/23/25: No acute intracranial abnormality. Chronic senescent changes. Motion limited exam.
-Labs 11/24: Carbamazepine 10.8, LEV 44
Plan
Continue carbamazepine, level is normal
Continue levetiracetam
Cenobamate 250 mg daily using the patient's outpatient supply of the medication, increase again to 275 mg on January 31 and increase by 25 mg weekly every Monday until patient reaches 400 mg/day
DVT prophylaxis with warfarin
Will follow as outpatient.
Subjective/Objective
Subjective Data
Date of Service: January 29, 2025
Seen this morning after episode of change in mental status unresponsive episode followed by vomiting, which have happened multiple times recently. residents and i spoke with patient's , since I last spoke with them, they've decided to pursue
more palliative approach and potentially hospice. Patient was already down at head CT. no need for EEG based on goals of care
Objective Data
Vital Signs
Temp Pulse Resp BP Pulse Ox
37.1 C 67 19 121/50 96
01/29/25 19:13 01/29/25 19:13 01/29/25 19:13 01/29/25 19:13 01/29/25 19:13
Lab Results
01/29/25 07:16
01/29/25 07:16
PT 27.4 Sec (11.4-14.6) H 01/29/25 08:40
INR 2.50 01/29/25 08:40
APTT 52.7 Sec (23.4-35.0) H 01/25/25 04:16
Sodium 136 mmol/L (135-145) 01/29/25 07:16
Potassium 4.5 mmol/L (3.5-5.1) 01/29/25 07:16
BUN 7 mg/dl (9-20) L 01/29/25 07:16
Glucose 96 mg/dl (70-99) 01/29/25 07:16
Calcium 8.3 mg/dl (8.4-10.2) L 01/29/25 07:16
Phosphorus 2.7 mg/dl (2.5-4.5) 01/27/25 03:41
Patient Allergies
hydralazine Allergy (Verified 01/22/25 09:44)
Unknown
pollen extracts Allergy (Verified 01/22/25 09:44)
nasal symptoms
[2025-01-29] MEDS: VIMPAT IV ×2 (21:45→21:56)
[2025-01-29] MEDS: NON-FORMULARY ITEM 200 MG PO (21:58)
[2025-01-29] MEDS: NON-FORMULARY ITEM 50 MG PO (21:59)
[2025-01-29] MEDS: KEPPRA PO (23:51)
[2025-01-29] MEDS: KEPPRA IV (23:52)
[2025-01-30] VITALS (8 sets, daily range): BP systolic 109–144; BP diastolic 51–62; BMI 21.1
[2025-01-30 05:04] LABS: Urine Character Clear (Clear)
[2025-01-30 05:32] LABS: Urine Squamous Cell >30 /LPF (Few)
[2025-01-30 05:34] LABS: Urine Red Blood Cell None Seen /HPF (0-2); Urine White Cell 26-30 /HPF (0-5)
--- NOTE | 2025-01-30 05:46 | PTCARENOTE ---
Pt aaox3 able to make his needs known.On bed alarm & seizure precautions .Pt took all his PO medications, refuses to take his IV Vimpat & IV keppra. RN spoke to pt multiple times about the use of medication need & to prevent seizures, another RN
tried to talk & explain pt, pt still refusing to take IV.[employer] collection was made aware pt medications were switched to PO keppra & vimpat.Pt still refusing to take meds.Plan of care continued on pt.
[2025-01-30 06:50] LABS: INR 3.20; PT 33.0 Sec (11.4-14.6)
[2025-01-30 06:53] LABS: Hematocrit 19.8 % (39.0-52.0); Hemoglobin 6.7 g/dL (13.0-18.0); Mean Corp Hgb Conc. 33.8 g/dL (33.0-37.0); Mean Corpuscular Volume 97.5 fL (80.0-94.0); Platelet Count 243 10^3/uL (130-400); Red Cell Dist. Width 12.0 % (11.5-14.5)
[2025-01-30] MEDS: KEPPRA 1750 MG PO ×2 (09:41→21:09)
[2025-01-30] MEDS: NORVASC PO (09:42)
[2025-01-30] MEDS: PROTONIX 40 MG PO (09:42)
[2025-01-30] MEDS: LONITEN PO (09:43)
[2025-01-30] MEDS: VIMPAT 200 MG PO ×2 (09:45→21:09)
[2025-01-30] MEDS: TEGRETOL 600 MG PO ×2 (09:46→21:08)
[2025-01-30] MEDS: MIRALAX PO (09:46)
--- NOTE | 2025-01-30 13:41 | W.PN.HOSP.TC ---
Addendum entered and electronically signed by Devin Hills MD 01/30/25 20:03:
Attending Addendum-
I saw and evaluated the patient. I reviewed the resident�s note and agree with findings and plan as documented in the resident�s note. Sub: Patient seen with . has slurred speech. per nursing refused meds last pm. states that he is not
himself. Full 10 point ROS reviewed and negative except as documented Exam: Vitals reviewed in chart GEN-NAD heart RRR lungs clear abd soft LE no edema Neuro AAO x 2, slurred speech, MS 5/5 sensation intact
Plan:
#TME
#Multifactorial
Neurology on board
MRI brain-no acute intracranial abnormality
EEG�64 minutes�No epileptiform features were demonstrated.
Continue AEDs�
Lacosamide
Levetiracetam
Carbamazepine
Cenobamate increased to to 250 mg- increase 25 mg weekly until 400 mg (MAX)-per neuro
QTc stable on telemetry
Speech cleared for IDDSI�6, soft bite-size solids with thin liquids
overall poor prog - refractory
#VDRF
-Patient intubated for airway protection in the ER at arrival on 01/22
-extubated on 01/25
#Sepsis secondary to UTI
Blood culture�no growth
Urine culture�Pseudomonas, Enterococcus
ET aspirate�klebsiella- no need to treat
MRSA negative
completed course of Zosyn on 01/28
repeat urine cx pend
appreciate ID input
#History of asthma
Continue DuoNebs
Continue budesonide
# Acute on chronic anemia
trending down to 6.7
transfuse 1 unit PRBC repeat hb 4 hours post
Anemia of chronic disease
Monitor for signs of bleeding on warfarin
Monitor CBC
Will transfuse if less than 7
#Heart failure with preserved ejection fraction
not in AE
echo�5/5�ejection fraction�70%
cont lasix
#Paroxysmal A-fib
Currently NSR
now mildly supratherapeutic INR
decrease warfarin 5.5->4.5 tonight
Monitor INR, goal 2-3.
#Essential hypertension
Continue amlodipine, clonidine, minoxidil
Diet�IDDSI�6
#DVT prophylaxis�warfarin
Full code->DNR
Dispo Eventual DC to SNF then hospice DC in am d/w CM DC in AM
Time spent coordinating care, review of plan of care with resident, personally reviewed records in EMR, med rec, consults, notes, labs, radiology, d/w nursing and POA � 51 mins
Original Note:
Today's Communication/Plan
-
HB results post transfusion= 8.2 mg/dl
Assessment / Plan
Assessment / Plan
MPRESSION:
84-year-old male presenting to the ED with altered mental status/seizures.
PLAN:
Epilepsy
Likely breakthrough seizures versus infectious etiology
Neurology consulted
CT head today �no acute intracranial abnormality
MRI brain - no acute intracranial abnormality. Chronic senescent changes
EEG�64 minutes� study suggestive of mild to moderate bihemispheric cortical dysfunction. No epileptiform features were demonstrated.
Also received 4/5 doses of IVIG at that time.
Continue with AEDs�lacosamide 200 mg IV every 12
Levetiracetam 1750 mg IV every 12
Carbamazepine 600 mg every 12
Cenobamate increased to to 250 mg, daily (not in formulary, patient's has it, home dose at 225 mg), increase again to 275 mg on January 31 and increase 25 mg weekly until patient reaches 400 mg
Monitor levetiracetam levels
Speech cleared for IDDSI�6, soft bite-size solids with thin liquids
PT/OT
Sepsis
#UTI
#Leukocytosis
#Lactic acidosis
Patient septic at admission
Continue IV fluids
Blood culture�no growth
Urine culture�Pseudomonas aeruginosa, Enterococcus faecalis, sensitivities resulted.
ET aspirate�klebsiella aeruginosa, gram-negative
Monitor fever curve, WBC count
Chest x-ray with no evidence of pneumonia
Elevated procalcitonin�3.19
Lactic acidosis resolved
#VDRF
Patient intubated for airway protection in the ER at arrival on 01/22/2025
Patient extubated on 01/25/2025
# Acute on chronic anemia
12 > 10 >7. 1 >7.6> 6.7
Iron 44, TIBC 173, percent sat 25, ferritin 1070
Anemia of chronic disease
Monitor for signs of bleeding, patient is on warfarin
Monitor CBC
Today transfused 1pRBC
Hb post transfusion is 8.4mg/dl
HCT= 24.4L
#Heart failure with preserved ejection fraction
Recent echo�12/02/2024�ejection fraction�70%
Patient is septic and presentation, will hold furosemide
#Paroxysmal A-fib
EKG in ER-A-fib with RVR, rate at 130
Currently NSR
INR is Supratherapeutic range 3.20.
Warfarin 5mg hold for today
warfarin 4mg started and
Monitor INR, goal 2-3.
Not on any rate control meds
#History of asthma
Continue DuoNebs
Continue budesonide
#Essential hypertension
Amlodipine 5mg discontinued.
Diet�IDDSI�6
#DVT prophylaxis�warfarin
Dont resuscitate
Anticipated Discharge: Within 24 hours
Subjective/Interval History
-
Date of Service: January 30, 2025
84 M h/o Status epilepticus, altered mental sensorium, Hypertensive heart disease and CKD, paroximal AFib today is completely oriented, obtain history from him.
No concerns for dyspnea, palpitation, dizziness. He received antiepileptic medication.
Objective Data
-
Labs:
Laboratory Results
01/29/25 07:16
Laboratory Results
PT 33.0 Sec (11.4-14.6) H 01/30/25 06:14
INR 3.20 01/30/25 06:14
APTT 52.7 Sec (23.4-35.0) H 01/25/25 04:16
pH 7.50 (7.35-7.45) H 01/25/25 10:25
pCO2 30 mmHg (35-48) L 01/25/25 10:25
pO2 197 mmHg (83-108) H 01/25/25 10:25
HCO3 23.4 mmol/L (21-28) 01/25/25 10:25
Lactic Acid Cancelled 01/22/25 22:00
Total Bilirubin 0.3 mg/dl (0.2-1.3) 01/29/25 07:16
AST 21 U/L (17-59) 01/29/25 07:16
ALT 19 U/L (0-50) 01/29/25 07:16
Alkaline Phosphatase 53 U/L (38-126) 01/29/25 07:16
01/30/25
06:14
WBC 4.0 L
Hgb 6.7 L*
Hct 19.8 L*
Plt Count 243
PT 33.0 H
INR 3.20
Vital Signs:
Vital Signs
Temp Pulse Resp BP Pulse Ox
98.1 F 61 16 130/54 96
01/30/25 13:06 01/30/25 13:06 01/30/25 13:06 01/30/25 13:06 01/30/25 07:55
I&O
01/29/25 01/30/25 01/31/25
06:59 06:59 06:59
Intake Total 340 / 340 600 / 600 730 / 730
Output Total 550 / 550 450 / 450
Balance -210 / -210 150 / 150 730 / 730
Review of Systems
-
History Source: Patient
Constitutional: Reports No Symptoms
EENT: Reports No Symptoms Reported
Respiratory: Reports No Symptoms
Cardiac: Reports No Symptoms
Abdomen/GI: Reports No Symptoms
Breast: Reports No Symptoms
Genitourinary: Reports No Symptoms
Musculoskeletal: Reports No Symptoms
Skin: Reports No Symptoms
Neuro: Reports No Symptoms
Endocrine: Reports No Symptoms
Hematologic / Lymphatic: Reports No Symptoms
Allergy / Immunology: Reports No Symptoms
Physical Exam
-
General: Comfortable
HEENT: Moist Mucous Membranes
Respiratory: Clear to Auscultation
Cardiac: Regular Rhythm
GI: Soft and Nontender
Genito-urinary: No Costovertebral Tender
Skin: Warm
Neuro: Awake
Psych: Calm
[2025-01-30 16:16] LABS: Hematocrit 24.4 % (39.0-52.0); Hemoglobin 8.4 g/dL (13.0-18.0)
[2025-01-30] MEDS: FLOMAX 0.4 MG PO (17:22)
[2025-01-30] MEDS: COUMADIN 0.5 MG PO (17:22)
[2025-01-30] MEDS: COUMADIN 4 MG PO (17:23)
[2025-01-30] MEDS: LONITEN 10 MG PO (21:14)
[2025-01-30] MEDS: NON-FORMULARY ITEM 200 MG PO (21:17)
[2025-01-30] MEDS: NON-FORMULARY ITEM PO (23:35)
[2025-01-31 03:17] VITALS: BP 159/71
[2025-01-31 06:00] VITALS: BMI 21.3
--- NOTE | 2025-01-31 06:35 | PTCARENOTE ---
Pt resting comfortably. Denies of any pain. Pt was called & made aware of pt home medications needed 50mg Cenobamate tablet. No other complaints noted.Plan of care continued.
[2025-01-31 07:55] VITALS: BP 150/59
[2025-01-31 08:04] LABS: INR 3.75; PT 36.7 Sec (11.4-14.6)
[2025-01-31 08:14] LABS: Hematocrit 23.8 % (39.0-52.0); Hemoglobin 8.3 g/dL (13.0-18.0); Mean Corp Hgb Conc. 34.0 g/dL (33.0-37.0); Mean Corpuscular Volume 94.8 fL (80.0-94.0); Nucleated Red Blood Cells % 0 % (-); Platelet Count 244 10^3/uL (130-400); Red Cell Dist. Width 13.2 % (11.5-14.5)
[2025-01-31 08:21] LABS: ALT (SGPT) 15 U/L (0-50); AST (SGOT) 19 U/L (17-59); Albumin 2.9 g/dl (3.5-5.0); Alkaline Phosphatase 51 U/L (38-126); Blood Urea Nitrogen 9 mg/dl (9-20); Calcium 8.5 mg/dl (8.4-10.2); Carbon Dioxide 25 mmol/L (22-30); Chloride 109 mmol/L (98-107); Estimated Creatinine Clearance 77 ml/min; Glucose 92 mg/dl (70-99); Potassium 5.0 mmol/L (3.5-5.1); Sodium 138 mmol/L (135-145); Total Protein 6.0 g/dl (6.3-8.2); eGFR > 60.00
[2025-01-31] MEDS: KEPPRA 1750 MG PO ×2 (09:21→19:59)
[2025-01-31] MEDS: TEGRETOL 600 MG PO ×2 (09:21→20:08)
[2025-01-31] MEDS: PROTONIX 40 MG PO (09:21)
[2025-01-31] MEDS: VIMPAT 200 MG PO ×2 (09:21→20:08)
[2025-01-31] MEDS: LONITEN 10 MG PO ×2 (09:21→20:07)
[2025-01-31] MEDS: MIRALAX 17 GRAMS PO (09:22)
[2025-01-31] MEDS: NORVASC 5 MG PO (09:22)
[2025-01-31 11:18] VITALS: BP 180/78
--- NOTE | 2025-01-31 11:41 | VATNOTE ---
During routine assessment of peripheral IVs, R forearm IV site noted to be leaking and R median basilic antecubital site was occluded. Both IV sites discontinued. No IV medications ordered and pt with D/C telemetry protocol order for 01/31 at 1100.
PCN off floor at this time, asked another nurse to have PCN tigertext this RN if telemetry was not to be discontinued today so pts PIV could be restarted.
--- NOTE | 2025-01-31 12:47 | CM ---
CM following re: d/c planning.
CM met with pt and at bedside to discuss dispo.
She would like for pt to go to SNF at this time, per therapy recs, and eventually transition to hospice.
She provided the following choices for SNF: [facility], and [facility]
Refs sent, awaiting correspondence.
CM continuing to follow.
--- NOTE | 2025-01-31 13:02 | W.PN.HOSP.TC ---
Addendum entered and electronically signed by Devin Hills MD 01/31/25 21:21:
Attending Addendum-
I saw and evaluated the patient. I reviewed the resident�s note and agree with findings and plan as documented in the resident�s note. Sub: Patient seen with . Seen post meds, not very responsive appears to be staring off into space.
Intermittently following commands. Full 10 point ROS attempted but unable to obtain due to MS. Exam: Vitals reviewed in chart GEN-NAD heart RRR lungs clear abd soft LE no edema Neuro AAO x 0, slurred speech, MS 5/5 sensation intact
Plan:
#TME
#Multifactorial
Neurology on board
MRI brain-no acute intracranial abnormality
EEG�64 minutes�No epileptiform features were demonstrated.
Continue AEDs�
Lacosamide
Levetiracetam
Carbamazepine
Cenobamate increased to to 250 mg- increase 25 mg weekly until 400 mg (MAX)-per neuro
QTc stable on telemetry
Speech cleared for IDDSI�6, soft bite-size solids with thin liquids
overall poor prog - refractory seizure activity- hospice appropriate- no further w/u
c/s hospice
#VDRF
-Patient intubated for airway protection in the ER at arrival on 01/22
-extubated on 01/25
#Sepsis secondary to UTI
resolved
completed course of Zosyn on 01/28
repeat urine cx NGTD
#History of asthma
Continue DuoNebs
Continue budesonide
# Leukopenia
- worsening
- likely due to meds
- repeat CBC in am
# Acute on chronic anemia
s/p transfuse 1 unit PRBC 01/30
Anemia of chronic disease
Monitor for signs of bleeding on warfarin
Monitor CBC
transfuse if less than 7
#Heart failure with preserved ejection fraction
not in AE
echo�5/5�ejection fraction�70%
cont lasix
#Paroxysmal A-fib
Currently NSR
supratherapeutic INR
hold warfarin tonight 01/31
repeat INR in am
#Essential hypertension
Continue amlodipine, clonidine, minoxidil
Diet�IDDSI�6
#DVT prophylaxis�warfarin
Full code->DNR
Dispo Eventual DC to SNF then hospice at facility d/w CM at great length-DC planning likely Monday
Time spent coordinating care, review of plan of care with resident, personally reviewed records in EMR, med rec, consults, notes, labs, d/w nursing CM and POA � 52 mins
Original Note:
Today's Communication/Plan
-
-Cenobamate increased to 250 mg, daily (not in formulary, patient's has it, home dose at 225 mg), increase again to 275 mg on January 31 and increase 25 mg weekly until patient reaches 400 mg
Monitor levetiracetam levels.
-INR Supratherapeutic level > 3.75
Warfarin hold for today.
Check for INR tomorrow and then decide to start Warfarin.
Monitor INR, goal 2-3.
Assessment / Plan
Assessment / Plan
84-year-old male presenting to the ED with altered mental status/seizures.
PLAN:
Epilepsy
Likely breakthrough seizures versus infectious etiology
Neurology consulted
CT head today �no acute intracranial abnormality
MRI brain - no acute intracranial abnormality. Chronic senescent changes
EEG�64 minutes� study suggestive of mild to moderate bihemispheric cortical dysfunction. No epileptiform features were demonstrated.
Also received 4/5 doses of IVIG at that time.
Continue with AEDs�lacosamide 200 mg IV every 12
Levetiracetam 1750 mg IV every 12
Carbamazepine 600 mg every 12
Cenobamate increased to 250 mg, daily (not in formulary, patient's has it, home dose at 225 mg), increase again to 275 mg on January 31 and increase 25 mg weekly until patient reaches 400 mg
Monitor levetiracetam levels.
Speech cleared for IDDSI�6, soft bite-size solids with thin liquids
PT/OT.
# Acute on chronic anemia
12 > 10 >7. 1 >7.6> 6.7> 8.4> 8.3
Iron 44, TIBC 173, percent sat 25, ferritin 1070
Anemia of chronic disease
Monitor for signs of bleeding, patient is on warfarin
Continue Warfarin 4mg today.
Monitor CBC
transfused 1pRBC.
Hb post transfusion is 8.4mg/dl
HCT= 24.4L
Sepsis
#UTI
#Leukocytosis
#Lactic acidosis
Patient septic at admission
Continue IV fluids
Blood culture�no growth
Urine culture�Pseudomonas aeruginosa, Enterococcus faecalis, sensitivities resulted- 01/22/25.
ET aspirate�klebsiella aeruginosa, gram-negative- 01/24/25
Monitor fever curve, WBC count
Chest x-ray with no evidence of pneumonia
Elevated procalcitonin�3.19
Lactic acidosis resolved
#VDRF
Patient intubated for airway protection in the ER at arrival on 01/22/2025
Patient extubated on 01/25/2025
#Heart failure with preserved ejection fraction
Recent echo�12/02/2024�ejection fraction�70%
will hold furosemide
#Paroxysmal A-fib
EKG in ER-A-fib with RVR, rate at 130
Currently NSR
INR is Supratherapeutic range 3.20 to 3.75 even reduction of Warfarin dosage 4.5mg to 4mg.
Warfarin hold for today.
Check for INR tomorrow and then decide to start Warfarin.
Monitor INR, goal 2-3.
Not on any rate control meds
#History of asthma
Continue DuoNebs
Continue budesonide
#Essential hypertension
Amlodipine 5mg discontinued.
Diet�IDDSI�6
#DVT prophylaxis�warfarin
Dont resuscitate
Anticipated Discharge: 24 - 48 hours
Subjective/Interval History
-
Date of Service: January 31, 2025
84 M h/o Status epilepticus, altered mental sensorium, Hypertensive heart disease and CKD, paroximal AFib today is altered sensorium.
No concerns for dyspnea, palpitation, dizziness. He received antiepileptic medication.
Objective Data
-
Labs:
Laboratory Results
01/31/25 07:07
01/31/25 07:07
Laboratory Results
PT 36.7 Sec (11.4-14.6) H 01/31/25 07:07
INR 3.75 01/31/25 07:07
APTT 52.7 Sec (23.4-35.0) H 01/25/25 04:16
pH 7.50 (7.35-7.45) H 01/25/25 10:25
pCO2 30 mmHg (35-48) L 01/25/25 10:25
pO2 197 mmHg (83-108) H 01/25/25 10:25
HCO3 23.4 mmol/L (21-28) 01/25/25 10:25
Lactic Acid Cancelled 01/22/25 22:00
Total Bilirubin 0.4 mg/dl (0.2-1.3) 01/31/25 07:07
AST 19 U/L (17-59) 01/31/25 07:07
ALT 15 U/L (0-50) 01/31/25 07:07
Alkaline Phosphatase 51 U/L (38-126) 01/31/25 07:07
01/31/25
07:07
WBC 3.5 L
Hgb 8.3 L
Hct 23.8 L
Plt Count 244
PT 36.7 H
INR 3.75
Sodium 138
Potassium 5.0
Chloride 109 H
Carbon Dioxide 25
BUN 9
Creatinine 0.7
Glucose 92
Calcium 8.5
Total Bilirubin 0.4
AST 19
ALT 15
Alkaline Phosphatase 51
Vital Signs:
Vital Signs
Temp Pulse Resp BP Pulse Ox
97.6 F 64 16 180/78 97
01/31/25 11:18 01/31/25 11:18 01/31/25 11:18 01/31/25 11:18 01/31/25 11:18
I&O
01/30/25 01/31/25 02/01/25
06:59 06:59 06:59
Intake Total 600 / 600 1570 / 1570
Output Total 450 / 450 600 / 600
Balance 150 / 150 970 / 970
Review of Systems
-
History Source: Patient
All other systems: Reviewed and negative
Constitutional: Reports No Symptoms
EENT: Reports No Symptoms Reported
Respiratory: Reports Cough
Cardiac: Reports No Symptoms
Abdomen/GI: Reports No Symptoms
Genitourinary: Reports No Symptoms
Musculoskeletal: Reports No Symptoms
Skin: Reports No Symptoms
Neuro: Reports No Symptoms
Endocrine: Reports No Symptoms
Hematologic / Lymphatic: Reports No Symptoms
Allergy / Immunology: Reports No Symptoms
Physical Exam
-
General: No Apparent Distress
Respiratory: Clear to Auscultation
Cardiac: Regular Rhythm
GI: Soft and Nontender
Genito-urinary: No Costovertebral Tender
Musculoskeletal: No Clubbing
Skin: Warm
Neuro: Awake
Hematologic / Lymphatic: No Lymphadenopathy
--- NOTE | 2025-01-31 13:54 | HOSPNOTE ---
Notified that family was interested in hospice after patient was placed into SNF under skilled care. I spoke to spouse and reviewed that the facilities that she is looking into we do service. Told her that when she is ready for hospice to request [facility] and we will come out to the facility. She was thankful for this information. Emotional support provided. CM and Attending updated.
[2025-01-31] MEDS: ZOFRAN 4 MG PO (14:09)
--- NOTE | 2025-01-31 14:19 | PTCARENOTE ---
Patient with complaints of nausea. PO zofran ordered x1. Plan of care ongoing.
[2025-01-31 15:55] VITALS: BP 160/67
[2025-01-31 16:08] VITALS: BP 121/53; PULSE 67; O2SAT 99
[2025-01-31] MEDS: FLOMAX 0.4 MG PO (17:05)
[2025-01-31] MEDS: NON-FORMULARY ITEM 200 MG PO (22:08)
[2025-01-31] MEDS: NON-FORMULARY ITEM 50 MG PO (22:12)
[2025-01-31 23:45] VITALS: BP 154/65
[2025-02-01] VITALS (7 sets, daily range): BP systolic 124–204; BP diastolic 55–90; BMI 21.5
[2025-02-01 07:32] LABS: Hematocrit 25.2 % (39.0-52.0); Hemoglobin 8.7 g/dL (13.0-18.0); Mean Corp Hgb Conc. 34.5 g/dL (33.0-37.0); Mean Corpuscular Volume 94.4 fL (80.0-94.0); Platelet Count 262 10^3/uL (130-400); Red Cell Dist. Width 12.9 % (11.5-14.5)
[2025-02-01 07:33] LABS: INR 3.54; PT 35.2 Sec (11.4-14.6)
[2025-02-01] MEDS: KEPPRA 1750 MG PO ×2 (08:32→20:03)
[2025-02-01] MEDS: LONITEN 10 MG PO ×2 (08:33→20:04)
[2025-02-01] MEDS: MIRALAX 17 GRAMS PO (08:33)
[2025-02-01] MEDS: NORVASC 5 MG PO (08:34)
[2025-02-01] MEDS: TEGRETOL 600 MG PO ×2 (08:34→20:04)
[2025-02-01] MEDS: PROTONIX 40 MG PO (08:34)
[2025-02-01] MEDS: VIMPAT 200 MG PO ×2 (08:35→20:04)
[2025-02-01 10:13] LABS: Glucose - Point of Care 107 mg/dl (70-99)
--- NOTE | 2025-02-01 10:30 | PTCARENOTE ---
Addendum entered by Gladys Dowell 02/01/25 17:10:
Pt's 1130 BP 165/63, asymptomatic. Pt back to baseline at lunch. Sitting up in bed. Pt's at bedside.
Original Note:
Noted at 1000 that pt in chair staring, not verbally responsive. Pt able to stand and bear own weight to get to bed. Once pt in bed, started vomiting. No noted jerky movements. BP 204/90 at that time. Pt's blood sugar 107. Pt with garbled/slow
speech, increased from baseline. Dr. Elise alerted of episode and came to assess pt. See orders for telemetry and Zofran PRN.
1030- BP now 192/81, Pt now verbally responsive, remains with about baseline garbled/slow speech. Pt SR on telemetry. Will continue to monitor closely.
Pt's stating that these episodes happen at home too and he experiences vomiting after his morning medications. Discussed with Dr. Elise. MD is looking at possibly adjusting times of anti-seizure medications as pt takes alot in the morning
at the same time.
[2025-02-01] MEDS: ZOFRAN 4 MG IV (10:45)
[2025-02-01] MEDS: FLUSH (NSS) 2 FLUSH IV (10:46)
[2025-02-01 12:03] LABS: Glucose - Point of Care 105 mg/dl (70-99)
--- NOTE | 2025-02-01 13:25 | W.PN.HOSP.TC ---
Today's Communication/Plan
-
Assessment / Plan
Assessment / Plan
Physical Exam
General: No Apparent Distress, nauseous
HEENT: NormoCephalic, Moist mucous membranes, Atraumatic
Respiratory: Clear and Non Labored Respirations
Cardiac: S1/S2 and Regular Rhythm; No Rub or Gallop
GI: Soft, Non Tender, Non Distended and Normal Bowel Sounds
Musculoskeletal: No Edema, no deformity
Neuro: Awake, mental status waxing and waning with intermittent upward gaze and stuttering speech
Psych: Calm and cooperative
84-year-old male presenting to the ED with altered mental status/seizures.
PLAN:
Epilepsy
Likely breakthrough seizures versus infectious etiology
Neurology consulted
CT head today �no acute intracranial abnormality
MRI brain - no acute intracranial abnormality. Chronic senescent changes
EEG�64 minutes� study suggestive of mild to moderate bihemispheric cortical dysfunction. No epileptiform features were demonstrated.
Also received 4/5 doses of IVIG at that time.
Continue with AEDs�lacosamide 200 mg IV every 12
Levetiracetam 1750 mg IV every 12
Carbamazepine 600 mg every 12
Cenobamate increased to 250 mg, daily (not in formulary, patient's has it, home dose at 225 mg), increase again to 275 mg on January 31 and increase 25 mg weekly until patient reaches 400 mg
Monitor levetiracetam levels.
Speech cleared for IDDSI�6, soft bite-size solids with thin liquids
Patient has recurrent nausea/vomiting and mental status changes in the morning approximately an hour after receiving his morning medications, will attempt to change the timing of some of his medications in order to avoid these symptoms
PT/OT.
Patient and his are planning dispo to SNF and eventually transitioning to hospice care at a nursing facility, case management involved
# Acute on chronic anemia
12 > 10 >7. 1 >7.6> 6.7> 8.4> 8.3
Iron 44, TIBC 173, percent sat 25, ferritin 1070
Anemia of chronic disease
Monitor for signs of bleeding, patient is on warfarin
Continue Warfarin 4mg today.
Monitor CBC
transfused 1pRBC.
Hb post transfusion is 8.4mg/dl
HCT= 24.4L
Sepsis
#UTI
#Leukocytosis
#Lactic acidosis
Patient septic at admission
Continue IV fluids
Blood culture�no growth
Urine culture�Pseudomonas aeruginosa, Enterococcus faecalis, sensitivities resulted- 01/22/25.
ET aspirate�klebsiella aeruginosa, gram-negative- 01/24/25
Monitor fever curve, WBC count
Chest x-ray with no evidence of pneumonia
Elevated procalcitonin�3.19
Lactic acidosis resolved
#VDRF
Patient intubated for airway protection in the ER at arrival on 01/22/2025
Patient extubated on 01/25/2025
#Heart failure with preserved ejection fraction
Recent echo�12/02/2024�ejection fraction�70%
will hold furosemide
#Paroxysmal A-fib
EKG in ER-A-fib with RVR, rate at 130
Currently NSR
INR is Supratherapeutic range 3.20 to 3.75 even reduction of Warfarin dosage 4.5mg to 4mg.
Warfarin hold for today.
Check for INR tomorrow and then decide to start Warfarin.
Monitor INR, goal 2-3.
Not on any rate control meds
#History of asthma
Continue DuoNebs
Continue budesonide
#Essential hypertension
Amlodipine 5mg discontinued.
Diet�IDDSI�6
#DVT prophylaxis�warfarin
Dont resuscitate
Anticipated Discharge: 24 - 48 hours
Subjective/Interval History
-
Date of Service: February 01, 2025
Patient was seen and examined at bedside this morning. Continues to experience nausea and mental status change an hour or so after receiving his morning medications. Is having some vomiting this morning, nausea improved with Zofran.
Objective Data
-
Labs:
Laboratory Results
02/01/25
06:42
WBC 3.5 L
Hgb 8.7 L
Hct 25.2 L
Plt Count 262
PT 35.2 H
INR 3.54
Vital Signs:
Vital Signs
Temp Pulse Resp BP Pulse Ox
97.9 F 71 18 165/63 96
02/01/25 12:00 02/01/25 12:00 02/01/25 12:00 02/01/25 12:00 02/01/25 12:00
I&O
01/31/25 02/01/25 02/02/25
06:59 06:59 06:59
Intake Total 1570 / 1570 510 / 510
Output Total 600 / 600 200 / 200
Balance 970 / 970 310 / 310
Review of Systems
-
History Source: Patient
All other systems: Reviewed and negative
Abdomen/GI: Reports Nausea and Vomiting
Physical Exam
-
General: Appears Chronically Ill
[2025-02-01] MEDS: FLOMAX 0.4 MG PO (18:09)
[2025-02-01] MEDS: NON-FORMULARY ITEM 200 MG PO (21:55)
[2025-02-01] MEDS: NON-FORMULARY ITEM 50 MG PO (21:58)
[2025-02-02] VITALS (7 sets, daily range): BP systolic 104–176; BP diastolic 52–87; BMI 21.5
[2025-02-02] MEDS: NORVASC 5 MG PO (09:07)
[2025-02-02] MEDS: KEPPRA 1750 MG PO ×2 (09:07→19:56)
[2025-02-02] MEDS: PROTONIX 40 MG PO (09:08)
[2025-02-02] MEDS: MIRALAX 17 GRAMS PO (09:09)
[2025-02-02] MEDS: VIMPAT 200 MG PO ×2 (09:09→19:57)
[2025-02-02] MEDS: LONITEN 10 MG PO ×2 (09:09→20:02)
--- NOTE | 2025-02-02 10:33 | W.PN.HOSP.TC ---
Today's Communication/Plan
-
see plan
Assessment / Plan
Assessment / Plan
84 M p/w'd with altered mental status/seizures.
Gen: NAD, Awake and alert
Eyes: EOMI, PERRLA, no scleral icterus.
Neck: supple.
CV: RRR, +S1/S2, no m/r/g.
Resp: CTAB, no rales, wheezes, or rhonchi.
Abd: +BS, soft, NT, ND
Skin: No rashes.
Neuro: CN 2-12 intact, non-focal.
Psych: Normal mood and affect.
01/30/25 04:34 Urine Urine Culture - Final
NO GROWTH
01/24/25 21:10 Endotracheal Respiratory Culture - Final
Klebsiella aerogenes
01/24/25 21:10 Endotracheal Gram Stain - Final
01/22/25 10:42 Blood/Venous Blood Culture - Final
No Growth - Final Report
01/22/25 10:02 Blood/Venous Blood Culture - Final
No Growth - Final Report
01/22/25 12:34 Urine Urine Culture - Final
Pseudomonas aeruginosa
Enterococcus faecalis
01/24/25 04:37 Nose Nasal Screen MRSA (PCR) - Final
MRSA not detected - performed by PCR methodology.
MRI brain 01/23/25: No acute intracranial abnormality. Chronic senescent changes. Motion limited exam.
CT brain 01/29/25: No evidence of acute intracranial abnormality.
Epilepsy with breakthrough seizures:
-Likely breakthrough seizures versus infectious etiology
-VDRF, pt intubated for airway protection in the ER at arrival on 01/22/2025, extubated on 01/25/2025
-neurology saw in c/s, last saw the pt on 01/29/25
-all imaging above and unremarkable
-cont Keppra/Vimpat/Tegretol/Xcorpi
-speech cleared for IDDSI�6, soft bite-size solids with thin liquids
-has recurrent nausea/vomiting and mental status changes in the morning approximately an hour after receiving his morning medications, the timing of some of his medications have been changed in order to avoid these symptoms
-PT/OT
-Patient and his are planning dispo to SNF and eventually transitioning to hospice care at a nursing facility, case management involved
Acute on chronic anemia of chronic disease
-Iron 44, TIBC 173, percent sat 25, ferritin 1070
-s/p 1U pRBCs
-Hb stable, trend
Sepsis due to UTI (POA):
-with leukocytosis and lactic acidosis, resolved
-s/p IVFs
-UCx with Pseudomonas and Enterococcus
-completed a course of Zosyn 01/22/25-01/29/25
Other problems:
Chronic HFpEF: Home Lasix on hold
PAF: coumadin on hold with supratherapeutic INR
Asthma: not in acute exac, cont DuoNebs/budesonide
Essential HTN: cont Norvasc/clonidine/Minoxidil
Pt's updated at bedside.
DNR
Regarding DVT prophylaxis, Coumadin on hold for supratherapeutic INR
Ongoing disposition efforts.
Total time spent on today's encounter was 50 minutes which included time spent in counseling the patient/family regarding diagnosis and treatment plan as listed above, goals of care, and symptom management. Case was discussed with nursing staff,
specialists, and care coordinators/case management. All labs and imaging personally reviewed by me. Remainder the time spent in detailed review of previous records, lab data, imaging, and other medical provider documentation.
Anticipated Discharge: Within 24 hours
Subjective/Interval History
-
Date of Service: February 02, 2025
No new complaints.
Objective Data
-
Vital Signs:
Vital Signs
Temp Pulse Resp BP Pulse Ox
98.7 F 60 18 133/57 98
02/02/25 07:10 02/02/25 09:07 02/02/25 07:10 02/02/25 09:07 02/02/25 07:10
I&O
02/01/25 02/02/25 02/03/25
06:59 06:59 06:59
Intake Total 510 / 510 480 / 480 240 / 240
Output Total 200 / 200
Balance 310 / 310 480 / 480 240 / 240
[2025-02-02] MEDS: TEGRETOL 600 MG PO ×2 (11:04→19:57)
[2025-02-02 12:17] LABS: INR 2.20; PT 24.6 Sec (11.4-14.6)
--- NOTE | 2025-02-02 12:30 | PTCARENOTE ---
Pt's stating that her has been having occasional double vision for the last few days, none today. She is not sure if any of the providers are aware. Made Dr. Meza aware, no change in orders.
--- NOTE | 2025-02-02 15:58 | PTCARENOTE ---
Pt had an episode of staring, increased garbled speech at this time. No jerky movements. Lasted approx [address] Meza aware. No change in orders.
--- NOTE | 2025-02-02 16:59 | CM ---
As per care [facility] does not have a bed.
Spoke with Gordon in room . She is aware of above.
[facility] did not respond in [facility] .Follow up in am .
PLAN Check SNF availability Monday
--- NOTE | 2025-02-02 18:33 | PTCARENOTE ---
Attempted to administer evening Coumadin and Flomax twice. Pt continues to refuse. Will pass on to production shift supervisor RN to try and attempt.
[2025-02-02] MEDS: ZOFRAN 4 MG IV (19:46)
[2025-02-02] MEDS: COUMADIN 3 MG PO (19:54)
[2025-02-02] MEDS: FLOMAX 0.4 MG PO (19:56)
[2025-02-02] MEDS: NON-FORMULARY ITEM PO ×4 (22:17→22:19)
[2025-02-03] VITALS (8 sets, daily range): BP systolic 120–175; BP diastolic 51–80; PULSE 65–67; O2SAT 96–97; BMI 21.2
--- NOTE | 2025-02-03 06:14 | W.PN.HOSP.TC ---
Addendum entered and electronically signed by Devin Hills MD 02/03/25 21:38:
Attending Addendum-
I saw and evaluated the patient. I reviewed the resident�s note and agree with findings and plan as documented in the resident�s note. Sub: No significant events over weekend. has expressive aphasia with slurred speech but able to get a few words
out. following commands. Full 10 point ROS attempted but unable to obtain due to MS. Exam: Vitals reviewed in chart GEN-NAD heart RRR lungs clear abd soft LE no edema Neuro AAO x 1, slurred speech, MS 5/5 sensation intact following commands
Plan:
#TME
#Multifactorial
Neurology on board
MRI brain-no acute intracranial abnormality
EEG�64 minutes�No epileptiform features were demonstrated.
Continue AEDs�
Lacosamide
Levetiracetam
Carbamazepine
Cenobamate increase to to 275 mg in AM- increase 25 mg weekly until 400 mg (MAX)
overall poor prog - refractory seizure activity- hospice appropriate- no aggressive further workup
#VDRF
-Patient intubated for airway protection in the ER at arrival on 01/22
-extubated on 01/25
#Sepsis secondary to UTI
resolved
completed course of Zosyn on 01/28
repeat urine cx NGTD
#History of asthma
Continue DuoNebs
Continue budesonide
# Leukopenia
- stable
- likely due to meds
- repeat CBC in am
# Acute on chronic anemia
s/p transfuse 1 unit PRBC 01/30
Anemia of chronic disease
Monitor for signs of bleeding on warfarin
Monitor CBC
transfuse if less than 7
#Heart failure with preserved ejection fraction
not in AE
echo�5/5�ejection fraction�70%
cont lasix
#Paroxysmal A-fib
Currently NSR
subtherapeutic INR
3mg coumadin given 02/02, will give additional 3mg today
repeat INR in am
#Essential hypertension
Continue amlodipine, clonidine, minoxidil
Diet�IDDSI�6
#DVT prophylaxis�warfarin
Full code->DNR
Dispo-DC to SNF then hospice at facility d/w CM at great length-DC in AM to [facility]
Time spent coordinating care, review of plan of care with resident, personally reviewed records in EMR, med rec, consults, notes, labs, d/w nursing CM � 51 mins
Original Note:
Today's Communication/Plan
-
warfarin started on 3mg dosage
INR monitor
waiting for the trimming caser for the disposition status to SNF.
Assessment / Plan
Assessment / Plan
84 M p/w'd with altered mental status/seizures.
01/30/25 04:34 Urine Urine Culture - Final
NO GROWTH
01/24/25 21:10 Endotracheal Respiratory Culture - Final
Klebsiella aerogenes
01/24/25 21:10 Endotracheal Gram Stain - Final
01/22/25 10:42 Blood/Venous Blood Culture - Final
No Growth - Final Report
01/22/25 10:02 Blood/Venous Blood Culture - Final
No Growth - Final Report
01/22/25 12:34 Urine Urine Culture - Final
Pseudomonas aeruginosa
Enterococcus faecalis
01/24/25 04:37 Nose Nasal Screen MRSA (PCR) - Final
MRSA not detected - performed by PCR methodology.
MRI brain 01/23/25: No acute intracranial abnormality. Chronic senescent changes. Motion limited exam.
CT brain 01/29/25: No evidence of acute intracranial abnormality.
Epilepsy with breakthrough seizures:
-Likely breakthrough seizures versus infectious etiology
-VDRF, pt intubated for airway protection in the ER at arrival on 01/22/2025, extubated on 01/25/2025
-neurology saw in c/s, last saw the pt on 01/29/25
-all imaging above and unremarkable
-cont Keppra/Vimpat/Tegretol/Xcorpi
Cenobamate dosage titrated from 250 to 275mg for this week until Wednesday 02/07, titrate up to 25mg from 02/08, until the patient reaches 400mg of total dosage.
-speech cleared for IDDSI�6, soft bite-size solids with thin liquids
-has recurrent nausea/vomiting and mental status changes in the morning approximately an hour after receiving his morning medications, the timing of some of his medications have been changed in order to avoid these symptoms
-PT/OT
-Patient and his are planning dispo to SNF and eventually transitioning to hospice care at a nursing facility, case management involved
Acute on chronic anemia of chronic disease
-Iron 44, TIBC 173, percent sat 25, ferritin 1070
-s/p 1U pRBCs
-Hb - 8.6mg/dl
warfarin 3mg started on 02/02,
Today INR= 1.48 (subtherapeutic level)
Sepsis due to UTI (POA):
-with leukocytosis and lactic acidosis, resolved
-s/p IVFs
-UCx with Pseudomonas and Enterococcus
-completed a course of Zosyn 01/22/25-01/29/25
Other problems:
Chronic HFpEF: Home Lasix on hold
Asthma: not in acute exac, cont DuoNebs/budesonide
Essential HTN: cont Norvasc/clonidine/Minoxidil
Pt's updated at bedside.
DNR
Regarding DVT prophylaxis- Warfarin 3mg
Ongoing disposition efforts.
Anticipated Discharge: Within 24 hours
Subjective/Interval History
-
Date of Service: February 03, 2025
Today pt is not oriented to the place, obtained h/o from . No tremor, palpitation, chest pain.
Objective Data
-
Labs:
02/03/25 06:13
02/03/25 06:13
Laboratory Results
PT 18.2 Sec (11.4-14.6) H 02/03/25 06:13
INR 1.48 02/03/25 06:13
APTT 52.7 Sec (23.4-35.0) H 01/25/25 04:16
pH 7.50 (7.35-7.45) H 01/25/25 10:25
pCO2 30 mmHg (35-48) L 01/25/25 10:25
pO2 197 mmHg (83-108) H 01/25/25 10:25
HCO3 23.4 mmol/L (21-28) 01/25/25 10:25
Lactic Acid Cancelled 01/22/25 22:00
Total Bilirubin 0.4 mg/dl (0.2-1.3) 01/31/25 07:07
AST 19 U/L (17-59) 01/31/25 07:07
ALT 15 U/L (0-50) 01/31/25 07:07
Alkaline Phosphatase 51 U/L (38-126) 01/31/25 07:07
Laboratory Results
02/03/25 02/03/25
06:00 06:13
WBC Pending
Hgb Pending
Hct Pending
Plt Count Pending
PT Pending
INR Pending
Sodium Pending
Potassium Pending
Chloride Pending
Carbon Dioxide Pending
BUN Pending
Creatinine Pending
Glucose Pending
Calcium Pending
Vital Signs:
Vital Signs
Temp Pulse Resp BP Pulse Ox
98.4 F 76 18 141/60 94
02/03/25 03:21 02/03/25 03:52 02/03/25 03:21 02/03/25 03:52 02/03/25 03:21
I&O
02/01/25 02/02/25 02/03/25
06:59 06:59 06:59
Intake Total 510 / 510 480 / 480 480 / 480
Output Total 200 / 200
Balance 310 / 310 480 / 480 480 / 480
Review of Systems
-
History Source: Family ()
Constitutional: Reports No Symptoms
EENT: Reports No Symptoms Reported
Cardiac: Reports No Symptoms
Genitourinary: Reports No Symptoms
Physical Exam
-
General: Well Developed
Respiratory: Clear to Auscultation
Cardiac: Regular Rhythm and S1/S2
GI: Soft and Nontender
Genito-urinary: No Costovertebral Tender
Neuro: Awake and Other (not oriented)
Hematologic / Lymphatic: No Lymphadenopathy
Psych: Confused
[2025-02-03 07:25] LABS: Hematocrit 25.3 % (39.0-52.0); Hemoglobin 8.6 g/dL (13.0-18.0); Mean Corp Hgb Conc. 34.0 g/dL (33.0-37.0); Mean Corpuscular Volume 95.5 fL (80.0-94.0); Platelet Count 266 10^3/uL (130-400); Red Cell Dist. Width 13.1 % (11.5-14.5)
[2025-02-03 07:31] LABS: INR 1.48; PT 18.2 Sec (11.4-14.6)
[2025-02-03 07:57] LABS: Blood Urea Nitrogen 12 mg/dl (9-20); Calcium 8.6 mg/dl (8.4-10.2); Carbon Dioxide 26 mmol/L (22-30); Chloride 106 mmol/L (98-107); Estimated Creatinine Clearance 77 ml/min; Glucose 99 mg/dl (70-99); Potassium 4.5 mmol/L (3.5-5.1); Sodium 137 mmol/L (135-145); eGFR > 60.00
[2025-02-03] MEDS: KEPPRA 1750 MG PO ×2 (09:36→20:59)
[2025-02-03] MEDS: PROTONIX 40 MG PO (09:37)
[2025-02-03] MEDS: VIMPAT 200 MG PO ×2 (09:37→20:59)
[2025-02-03] MEDS: NORVASC 5 MG PO (09:37)
[2025-02-03] MEDS: MIRALAX 17 GRAMS PO (09:38)
[2025-02-03] MEDS: LONITEN 10 MG PO ×2 (09:38→21:06)
[2025-02-03] MEDS: FLUSH (NSS) 1 FLUSH IV (09:38)
[2025-02-03] MEDS: TEGRETOL 600 MG PO ×2 (09:44→21:00)
--- NOTE | 2025-02-03 16:57 | CM ---
Spoke with Brant and Alicia At [facility] . They have referral .
[facility] requested to talk to and patient . Brant was going to face time patient.
Awaiting [facility] determination .
PLAN To [facility] if accepted.
[2025-02-03] MEDS: FLOMAX 0.4 MG PO (17:54)
[2025-02-03] MEDS: NON-FORMULARY ITEM 200 MG PO (21:10)
[2025-02-03] MEDS: NON-FORMULARY ITEM 50 MG PO (21:21)
[2025-02-03] MEDS: COUMADIN 3 MG PO (22:10)
--- NOTE | 2025-02-04 03:13 | PTCARENOTE ---
pt rang call urban stating he 'couldn't reach anything', found to have had moderate incontinence episode and more garbled speech with flat affect & glassy eyes- different from beginning of the shift. when asked how he was feeling, pt stated he just
felt really tired. pt repositioned, resting comfortably in bed. 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
[2025-02-04 06:00] VITALS: BMI 21.0
[2025-02-04 07:00] VITALS: BP 137/55
--- NOTE | 2025-02-04 07:15 | W.PN.HOSP.TC ---
Addendum entered and electronically signed by Devin Hills MD 02/05/25 15:47:
Attending Addendum-
I saw and evaluated the patient. I reviewed the resident�s note and agree with findings and plan as documented in the resident�s note. Sub: No significant events ON. Patient more alert today has expressive aphasia with slurred speech following
commands. Full 10 point ROS attempted but unable to obtain due to MS. Exam: Vitals reviewed in chart GEN-NAD heart RRR lungs clear abd soft LE no edema Neuro AAO x 1, slurred speech, MS 5/5 sensation intact following commands
Plan:
#TME
#Multifactorial
Neurology on board
MRI brain-no acute intracranial abnormality
EEG�64 minutes�No epileptiform features were demonstrated.
Continue AEDs�
Lacosamide
Levetiracetam
Carbamazepine
Cenobamate increase to to 275 mg- increase 25 mg weekly until 400 mg (MAX)
overall poor prog - refractory seizure activity- hospice appropriate- no aggressive further workup
#VDRF
-Patient intubated for airway protection in the ER at arrival on 01/22
-extubated on 01/25
#Sepsis secondary to UTI
resolved
completed course of Zosyn on 01/28
repeat urine cx NGTD
#History of asthma
Continue DuoNebs
Continue budesonide
# Leukopenia
- stable
- likely due to meds
- repeat CBC in am
# Acute on chronic anemia
s/p transfuse 1 unit PRBC 01/30
Anemia of chronic disease
Monitor for signs of bleeding on warfarin
Monitor CBC
transfuse if less than 7
#Heart failure with preserved ejection fraction
not in AE
echo�5/5�ejection fraction�70%
cont lasix
#Paroxysmal A-fib
Currently NSR
subtherapeutic INR
3mg coumadin given 02/02, will give additional 3mg today
repeat INR in am
#Essential hypertension
Continue amlodipine, clonidine, minoxidil
Diet�IDDSI�6
#DVT prophylaxis�warfarin
Full code->DNR
Dispo-DC to SNF then hospice at facility
Time spent coordinating care, DC planning, review of DC plan of care with resident, transition of care, review of records, med rec/scripts sent electronically, consults, notes, d/w consultants, nursing, family, and CM� 33 mins >50% of this time was
devoted to counseling and coordination of care
Original Note:
Today's Communication/Plan
-
Discharge today
Warfarin 4 mg
Disposition to SNF
Assessment / Plan
Assessment / Plan
84 M p/w'd with altered mental status/seizures.
01/30/25 04:34 Urine Urine Culture - Final
NO GROWTH
01/24/25 21:10 Endotracheal Respiratory Culture - Final
Klebsiella aerogenes
01/24/25 21:10 Endotracheal Gram Stain - Final
01/22/25 10:42 Blood/Venous Blood Culture - Final
No Growth - Final Report
01/22/25 10:02 Blood/Venous Blood Culture - Final
No Growth - Final Report
01/22/25 12:34 Urine Urine Culture - Final
Pseudomonas aeruginosa
Enterococcus faecalis
01/24/25 04:37 Nose Nasal Screen MRSA (PCR) - Final
MRSA not detected - performed by PCR methodology.
MRI brain 01/23/25: No acute intracranial abnormality. Chronic senescent changes. Motion limited exam.
CT brain 01/29/25: No evidence of acute intracranial abnormality.
Epilepsy with breakthrough seizures:
-Likely breakthrough seizures versus infectious etiology
-VDRF, pt intubated for airway protection in the ER at arrival on 01/22/2025, extubated on 01/25/2025
-neurology saw in c/s, last saw the pt on 01/29/25
-all imaging above and unremarkable
-cont Keppra/Vimpat/Tegretol/Xcorpi
Cenobamate dosage titrated from 250 to 275mg for this week until Wednesday 02/07, titrate up to 25mg from 02/08, until the patient reaches 400mg of total dosage.
-speech cleared for IDDSI�6, soft bite-size solids with thin liquids
-has recurrent nausea/vomiting and mental status changes in the morning approximately an hour after receiving his morning medications, the timing of some of his medications have been changed in order to avoid these symptoms
-PT/OT
-Patient and his are planning dispo to SNF and eventually transitioning to hospice care at a nursing facility, case management involved
Acute on chronic anemia of chronic disease
-Iron 44, TIBC 173, percent sat 25, ferritin 1070
-s/p 1U pRBCs
-Hb - 8.6mg/dl
warfarin 4 mg started 02/04
Today INR= 1.48 (subtherapeutic level)
Sepsis due to UTI (POA):
-with leukocytosis and lactic acidosis, resolved
-s/p IVFs
-UCx with Pseudomonas and Enterococcus
-completed a course of Zosyn 01/22/25-01/29/25
Other problems:
Asthma: not in acute exac, cont DuoNebs/budesonide
Essential HTN: cont Norvasc/clonidine/Minoxidil
PCP: Parker Ballard.
Disposition: [facility] ([facility])
DNR
Regarding DVT prophylaxis- Warfarin 4 mg
Anticipated Discharge: Today
Subjective/Interval History
-
Date of Service: February 04, 2025
84 yr M is in confused state today.
Objective Data
-
Labs:
02/04/25 07:02
02/04/25 07:02
Laboratory Results
PT 17.3 Sec (11.4-14.6) H 02/04/25 07:02
INR 1.39 02/04/25 07:02
APTT 52.7 Sec (23.4-35.0) H 01/25/25 04:16
pH 7.50 (7.35-7.45) H 01/25/25 10:25
pCO2 30 mmHg (35-48) L 01/25/25 10:25
pO2 197 mmHg (83-108) H 01/25/25 10:25
HCO3 23.4 mmol/L (21-28) 01/25/25 10:25
Lactic Acid Cancelled 01/22/25 22:00
Total Bilirubin 0.3 mg/dl (0.2-1.3) 02/04/25 07:02
AST 15 U/L (17-59) L 02/04/25 07:02
ALT 12 U/L (0-50) 02/04/25 07:02
Alkaline Phosphatase 56 U/L (38-126) 02/04/25 07:02
Laboratory Results
Vital Signs:
Vital Signs
Temp Pulse Resp BP Pulse Ox
99 F 68 18 123/51 96
02/03/25 23:40 02/03/25 23:40 02/03/25 23:40 02/03/25 23:40 02/03/25 23:40
I&O
02/03/25 02/04/25 02/05/25
06:59 06:59 06:59
Intake Total 480 / 480 840 / 840
Output Total 50 / 50 350 / 350
Balance 430 / 430 490 / 490
Review of Systems
-
History Source: Patient
All other systems: Reviewed and negative
EENT: Reports No Symptoms Reported
Physical Exam
-
General: Well Developed
Respiratory: Clear to Auscultation
Cardiac: Murmur (pansystolic murmur in aortic, pulmonic area)
Genito-urinary: No Costovertebral Tender
Skin: Warm
Neuro: Awake
Hematologic / Lymphatic: No Lymphadenopathy
[2025-02-04 07:53] LABS: Hematocrit 25.4 % (39.0-52.0); Hemoglobin 8.5 g/dL (13.0-18.0); Mean Corp Hgb Conc. 33.5 g/dL (33.0-37.0); Mean Corpuscular Volume 95.8 fL (80.0-94.0); Nucleated Red Blood Cells % 0 % (-); Platelet Count 266 10^3/uL (130-400); Red Cell Dist. Width 13.2 % (11.5-14.5)
[2025-02-04 08:05] LABS: INR 1.39; PT 17.3 Sec (11.4-14.6)
[2025-02-04 08:28] LABS: ALT (SGPT) 12 U/L (0-50); AST (SGOT) 15 U/L (17-59); Albumin 3.1 g/dl (3.5-5.0); Blood Urea Nitrogen 13 mg/dl (9-20); Calcium 8.8 mg/dl (8.4-10.2); Carbon Dioxide 28 mmol/L (22-30); Chloride 107 mmol/L (98-107); Estimated Creatinine Clearance 76 ml/min; Glucose 95 mg/dl (70-99); Potassium 4.7 mmol/L (3.5-5.1); Sodium 139 mmol/L (135-145); Total Protein 6.3 g/dl (6.3-8.2); eGFR > 60.00
[2025-02-04 08:44] LABS: Alkaline Phosphatase 56 U/L (38-126)
[2025-02-04] MEDS: KEPPRA 1750 MG PO (09:36)
[2025-02-04] MEDS: PROTONIX 40 MG PO (09:38)
[2025-02-04] MEDS: LONITEN 10 MG PO (09:38)
[2025-02-04] MEDS: NORVASC 5 MG PO (09:38)
[2025-02-04] MEDS: MIRALAX 17 GRAMS PO (09:39)
[2025-02-04] MEDS: VIMPAT PO (09:42)
--- NOTE | 2025-02-04 09:44 | CM ---
Addendum entered by Jennifer Montano 02/04/25 10:00:
Call with spouse and Alicia/admissions
Spouse will provide Xcopri to the SNF
Addendum entered by Jennifer Montano 02/04/25 09:48:
1230 transport time
Original Note:
CM reviewed pt with resident and pt ready for dc
Pt accepted at [facility], per admissions/Alicia, she spoke with spouse already this morning about plans
Calls 2x to spouse and no answer- VM left with update and reviewing IMM
Update to pt bedside and copy of IMM left
Medical necessity completed and on chart
Discharge Disposition- [facility] via ambulance
Phone- [phone] Fax- [phone]
[2025-02-04] MEDS: TEGRETOL 600 MG PO (09:46)
[2025-02-04 11:10] VITALS: BP 137/56
--- NOTE | 2025-02-04 12:54 | PTCARENOTE ---
Pt controlled home medication from locked drawer returned to . Pt with one package with 14 12.5mg pills, another package with 14 12.5 mg pills and 6 25 mg pills and a bottle of 17 200mg pills. Pt going to [facility], pt accepted
medication and has no questions at this time.
--- NOTE | 2025-02-04 18:06 | W.DCSUMMARY ---
Addendum entered and electronically signed by Devin Hills MD 02/05/25 23:33:
Read, reviewed, and agree. See same day progress note for additional details. Patient to transition to hospice at [facility] likely
Aj Hills MD
Original Note:
Documented by User: Shine Viera MD, Resident 02/05/25 20:42
Discharge Summary
Discharge Data
Date of Admission: 01/22/25
Date of Discharge: 02/04/25
-
Pending Results: No
Hospital Course
Discharging Physician : Dr Devin Hills
Dr Keyshawn Viera
Disposition : [facility] ( [facility])
Primary care physician : Dr Parker Ballard
Principal Discharge diagnosis : Status epilepticus.
Continued AED drugs.
Cenobamate dosing from 225 mg to 250 mg using the patient's outpatient supply of the medication, increased again to 275 mg on January 31 and increase by 25 mg weekly until patient reaches 400 mg/day continued with lacosamide, levetiracetam,
carbamazepine.
# Acute on chronic anemia: 1pRBC transfused for hemoglobin drop (6.7).
# Sepsis: Sepsis secondary to UTI. Urine culture grew Pseudomonas aeruginosa, Enterococcus started on IV vancomycin, Zosyn.vancomycin discontinued with negative MRSA screen.
ET Aspirate-Klebsiella aerogenes grown.
Chronic Discharge diagnosis :
# Asthma:Continued DuoNebs, budesonide
# Essential hypertension amlodipine, clonidine, minoxidil was continued.
#Paroxysmal A-fib Currently NSR, subtherapeutic INR 3mg Coumadin given 02/02.
##Heart failure with preserved ejection fraction not in Acute Exacerbation lasix continued.
echo�5/5�ejection fraction�70%
Hospital Course : 84-year-old male admitted on 01/22/2025 with altered sensorium. Workup done for the seizures- epilepsy induced/ sepsis urinalysis, CBC. Multiple seizure episodes without returning to baseline. Patient was sedated with Propofol
and intubated on 01/22/25. Bowden's catheter placed. Home medication AED regimens dosage increased, on lacosamide 200 mg IV every 12 hrs. Suspected underlying sepsis/UTI. Urine culture obtained. Cenobamate increased to 250 mg daily with
neurology consultation. Coumadin dosage modified depending on INR at the course of admission. Extubated 01/25. Patient had altered sensorium recurrently at morning time after receiving antiepileptic medications at the course of hospitalization.
Diet�IDDSI�6 given, DVT prophylaxis maintained with warfarin.
Important imaging findings :
Procedure findings :
EE01/22/25: Moderately to severely abnormal study for age based on bihemispheric burst-suppression pattern continuously during the study.
Labs: Carbamazepine 8.8, Urine gram negative bacilli, enterococcus species.
Discharge Plan
-
Patient Disposition: [facility]NF
Discharge Diagnosis/Procedures: Epilepsy with breakthrough seizures, Acute on chronic anemia of chronic disease
Condition: Good
Diet: No restrictions and Regular
Activity: With assistance
Driving Restrictions: No driving
Bathing Restrictions: None
Other Services: PT and OT
Specialty Instructions: Weigh Daily- Call MD for wt gain/loss 3 lbs overnight/5 lbs in 1 week
Referrals:
Robin Garcia MD [Family Provider, Internal Medicine]
Additional Discharge Medication Instructions: WARFARIN:
Give 4mg Warfarin QHS on 02/04/2025 and Check INR in the AM of 02/05/2025. Dose adjust as necessary to achieve therapeutic INR of 2-3.
CENOBAMATE TITRATION:
Increase dosage by 25mg every MONDAY until reaching a maximum dose of 400mg/day. Then, continue 400mg/day.
He will take 275mg Cenobamate through to 02/06/2025.
On 02/07/2025 he will increase to 300mg Cenobamate.
On 02/14/2025 he will increase to 325mg Cenobamate.
On 02/21/2025 he will increase to 350mg Cenobamate.
On 02/28/2025 he will increase to 375mg Cenobamate.
On 03/07/2025 he will increase to 400mg Cenobamate and continue on 400mg.
Prescriptions:
New
amlodipine 5 mg Tablet
5 mg PO DAILY 90 Days Qty: 90 0RF
warfarin 4 mg tablet
4 mg PO QHS Qty: 1 0RF
cenobamate 25 mg tablet
25 mg PO DAILY 90 Days Qty: 90 0RF
Rx Instructions:
Use to up-titrate as instructed
Continued
minoxidil 10 mg Tablet
10 mg PO BID
furosemide 40 mg Tablet
40 mg PO DAILY
cyanocobalamin (vitamin B-12) 1,000 mcg tablet
1,000 mcg PO DAILY
pantoprazole 40 mg tablet,delayed release (DR/EC)
40 mg PO DAILY
clonidine 0.2 mg/24 hr patch weekly
0.2 mg transdermal WE 30 Days Qty: 4 0RF
Rx Instructions:
CHANGE AND PLACED ON 01/22/25
carbamazepine 200 mg tablet extended release 12 hr
400 mg PO BID
levetiracetam 500 mg tablet
1,750 mg PO BID
lorazepam 1 mg tablet
1 mg PO Q6HPRN PRN (Reason: anxiety)
silodosin 8 mg Capsule
8 mg PO QPM
ondansetron HCl 4 mg tablet
4 mg PO BIDPRN PRN (Reason: NAUSEA)
carbamazepine 100 mg tablet extended release 12 hr
200 mg PO BID
Rx Instructions:
Take 200 mg BID plus the 400 mg BID you were already taking, total of 600 mg BID
lacosamide 200 mg tablet
200 mg PO BID
cenobamate 200 mg tablet
200 mg PO HS Qty: 0 0RF
Discontinued
warfarin 1 mg Tablet
5.5 mg PO QPM
Patient Comments:
INR DRAWN 06/24/25 DOSE ADJUSTED AND PATIENT TO STOP LOVENOX ON Monday01.20.25
amlodipine 2.5 mg Tablet
2.5 mg PO DAILY
Xcopri 25 mg Tablet
25 mg PO HS
Patient Comments:
PATIENT HAS FREE SAMPLES
Discharge Orders:
Discharge Patient (As Directed); Ordered 02/04/25
Ordered By: José Calles
Discharge Date and Time
Discharge Date/Time: 02/04/25 12:58
Print Language: SLOVENIAN

Documented by User: Devin Hills MD 02/05/25 23:32
Discharge Summary
Discharge Data
Date of Admission: 01/22/25
Date of Discharge: 02/05/25
Discharge Plan
-
Patient Disposition: [facility]
Discharge Diagnosis/Procedures: Epilepsy with breakthrough seizures, Acute on chronic anemia of chronic disease
Condition: Good
Diet: No restrictions and Regular
Activity: With assistance
Driving Restrictions: No driving
Bathing Restrictions: None
Other Services: PT and OT
Specialty Instructions: Weigh Daily- Call MD for wt gain/loss 3 lbs overnight/5 lbs in 1 week
Referrals:
Robin Garcia MD [Family Provider, Internal Medicine]
Additional Discharge Medication Instructions: WARFARIN:
Give 4mg Warfarin QHS on 02/04/2025 and Check INR in the AM of 02/05/2025. Dose adjust as necessary to achieve therapeutic INR of 2-3.
CENOBAMATE TITRATION:
Increase dosage by 25mg every MONDAY until reaching a maximum dose of 400mg/day. Then, continue 400mg/day.
He will take 275mg Cenobamate through to 02/06/2025.
On 02/07/2025 he will increase to 300mg Cenobamate.
On 02/14/2025 he will increase to 325mg Cenobamate.
On 02/21/2025 he will increase to 350mg Cenobamate.
On 02/28/2025 he will increase to 375mg Cenobamate.
On 03/07/2025 he will increase to 400mg Cenobamate and continue on 400mg.
Prescriptions:
New
amlodipine 5 mg Tablet
5 mg PO DAILY 90 Days Qty: 90 0RF
warfarin 4 mg tablet
4 mg PO QHS Qty: 1 0RF
cenobamate 25 mg tablet
25 mg PO DAILY 90 Days Qty: 90 0RF
Rx Instructions:
Use to up-titrate as instructed
Continued
minoxidil 10 mg Tablet
10 mg PO BID
furosemide 40 mg Tablet
40 mg PO DAILY
cyanocobalamin (vitamin B-12) 1,000 mcg tablet
1,000 mcg PO DAILY
pantoprazole 40 mg tablet,delayed release (DR/EC)
40 mg PO DAILY
clonidine 0.2 mg/24 hr patch weekly
0.2 mg transdermal WE 30 Days Qty: 4 0RF
Rx Instructions:
CHANGE AND PLACED ON 01/22/25
carbamazepine 200 mg tablet extended release 12 hr
400 mg PO BID
levetiracetam 500 mg tablet
1,750 mg PO BID
lorazepam 1 mg tablet
1 mg PO Q6HPRN PRN (Reason: anxiety)
silodosin 8 mg Capsule
8 mg PO QPM
ondansetron HCl 4 mg tablet
4 mg PO BIDPRN PRN (Reason: NAUSEA)
carbamazepine 100 mg tablet extended release 12 hr
200 mg PO BID
Rx Instructions:
Take 200 mg BID plus the 400 mg BID you were already taking, total of 600 mg BID
lacosamide 200 mg tablet
200 mg PO BID
cenobamate 200 mg tablet
200 mg PO HS Qty: 0 0RF
Discontinued
warfarin 1 mg Tablet
5.5 mg PO QPM
Patient Comments:
INR DRAWN 01/21/25 DOSE ADJUSTED AND PATIENT TO STOP LOVENOX ON Monday01.20.25
amlodipine 2.5 mg Tablet
2.5 mg PO DAILY
Xcopri 25 mg Tablet
25 mg PO HS
Patient Comments:
PATIENT HAS FREE SAMPLES
Discharge Orders:
Discharge Patient (As Directed); Ordered 02/04/25
Ordered By: José Calles
Discharge Date and Time
Discharge Date/Time: 02/04/25 12:58
Print Language: SLOVENIAN
== END 2025-02-04 12:58 | DRG 871 ==
LOC: 4 EAST ACU 14:48
PROVIDERS: Internal Medicine; Nurse Practitioner Family; Physician Assistant Medical; Student in an Organized Health Care Education/Training Program; ADMITTING PHYSICIAN Internal Medicine; ATTENDING PHYSICIAN Family Medicine; CONSULT PHYSICIAN Internal Medicine Critical Care Medicine; CONSULT PHYSICIAN Internal Medicine Infectious Disease; CONSULT PHYSICIAN Psychiatry & Neurology Neurology; EMERGENCY PHYSICIAN Emergency Medicine; FAMILY PHYSICIAN Internal Medicine
PROC: 0BH17EZ Insertion of Endotracheal Airway into Trachea, Via Natural or Artificial Opening (ICD-10-PCS; 2025-01-22)
PROC: 5A1945Z Respiratory Ventilation, 24-96 Consecutive Hours (ICD-10-PCS; 2025-01-22)
PROC: 30233N1 Transfusion of Nonautologous Red Blood Cells into Peripheral Vein, Percutaneous Approach (ICD-10-PCS; 2025-01-30)
DX: A41.9 Sepsis, unspecified organism (principal); G93.41 Metabolic encephalopathy; J96.91 Respiratory failure, unspecified with hypoxia; N39.0 Urinary tract infection, site not specified; I13.0 Hypertensive heart and chronic kidney disease with heart failure and stage 1 through stage 4 chronic kidney disease, or unspecified chronic kidney disease; I50.32 Chronic diastolic (congestive) heart failure; F03.94 Unspecified dementia, unspecified severity, with anxiety; Z99.11 Dependence on respirator [ventilator] status; E87.4 Mixed disorder of acid-base balance; G40.901 Epilepsy, unspecified, not intractable, with status epilepticus; N18.30 Chronic kidney disease, stage 3 unspecified; I48.0 Paroxysmal atrial fibrillation; Z79.01 Long term (current) use of anticoagulants; Z79.899 Other long term (current) drug therapy; D63.1 Anemia in chronic kidney disease; Z11.52 Encounter for screening for COVID-19; B95.2 Enterococcus as the cause of diseases classified elsewhere; B96.5 Pseudomonas (aeruginosa) (mallei) (pseudomallei) as the cause of diseases classified elsewhere; Z90.2 Acquired absence of lung [part of]; Z85.118 Personal history of other malignant neoplasm of bronchus and lung; Z82.49 Family history of ischemic heart disease and other diseases of the circulatory system; Z66 Do not resuscitate; G09 Sequelae of inflammatory diseases of central nervous system; G47.33 Obstructive sleep apnea (adult) (pediatric); I27.20 Pulmonary hypertension, unspecified; Z85.820 Personal history of malignant melanoma of skin; Z86.0100 Personal history of colon polyps, unspecified; E78.00 Pure hypercholesterolemia, unspecified; Z86.61 Personal history of infections of the central nervous system; Z91.199 Patient's noncompliance with other medical treatment and regimen due to unspecified reason; R79.1 Abnormal coagulation profile; J45.20 Mild intermittent asthma, uncomplicated; L89.151 Pressure ulcer of sacral region, stage 1
CPT/HCPCS: 36556; 36600; 70450; 70553; 71045; 74018; 80048; 80053; 80156; 80177; 80202; 81003; 81015; 82140; 82550; 82728; 82805; 82962; 83540; 83550; 83605; 83735; 84100; 84145; 84478; 85014; 85018; 85025; 85027; 85610; 85730; 86850; 86900; 86901; 86920; 87040; 87070; 87077; 87086; 87186; 87205; 87641; 87811; 92526; 92610; 93005; 94002; 94003; 94640; 95813; 95816; 96365; 96367; 96375; 96376; 97112; 97116; 97163; 97167; 97530; 99291; A9575; C9254; P9016

== ENCOUNTER → 2025-02-13 10:06 | Outpatient (REF) | payer OTHER, MEDICARE, SELFPAY ==
[2025-02-13 11:38] LABS: Hematocrit 31.0 % (39.0-52.0); Hemoglobin 10.2 g/dL (13.0-18.0); Mean Corp Hgb Conc. 32.9 g/dL (33.0-37.0); Mean Corpuscular Volume 97.8 fL (80.0-94.0); Nucleated Red Blood Cells % 0 % (-); Platelet Count 239 10^3/uL (130-400); Red Cell Dist. Width 13.2 % (11.5-14.5)
[2025-02-13 12:09] LABS: ALT (SGPT) < 10 U/L (0-50); AST (SGOT) 16 U/L (17-59); Albumin 3.6 g/dl (3.5-5.0); Alkaline Phosphatase 75 U/L (38-126); Blood Urea Nitrogen 24 mg/dl (9-20); Calcium 8.9 mg/dl (8.4-10.2); Carbon Dioxide 34 mmol/L (22-30); Chloride 99 mmol/L (98-107); Glucose 113 mg/dl (70-99); HDL Cholesterol 61 mg/dl; LDL Cholesterol, Calculated 172 mg/dl; Magnesium 1.9 mg/dl (1.6-2.3); Potassium 4.0 mmol/L (3.5-5.1); Sodium 137 mmol/L (135-145); Total Protein 7.1 g/dl (6.3-8.2); Very Low Density Lipoprotein 21 mg/dl (0-30); eGFR > 60.00
== END ==
LOC: OLABN 10:06
PROVIDERS: ATTENDING PHYSICIAN Student in an Organized Health Care Education/Training Program
DX: G40.803 Other epilepsy, intractable, with status epilepticus (principal); I10 Essential (primary) hypertension; D63.8 Anemia in other chronic diseases classified elsewhere; E78.5 Hyperlipidemia, unspecified; T42.6X5A Adverse effect of other antiepileptic and sedative-hypnotic drugs, initial encounter; Z51.81 Encounter for therapeutic drug level monitoring; R89.2 Abnormal level of other drugs, medicaments and biological substances in specimens from other organs, systems and tissues
CPT/HCPCS: 36415; 80053; 80061; 80156; 80177; 83735; 85025

== ENCOUNTER 2025-02-16 05:16 | Emergency (ER) | payer MEDICARE, OTHER, SELFPAY ==
[2025-02-16] VITALS (14 sets, daily range): BP systolic 135–170; BP diastolic 59–85
[2025-02-16 06:01] LABS: Hematocrit 35.6 % (39.0-52.0); Hemoglobin 12.0 g/dL (13.0-18.0); Mean Corp Hgb Conc. 33.7 g/dL (33.0-37.0); Mean Corpuscular Volume 96.0 fL (80.0-94.0); Nucleated Red Blood Cells % 0 % (-); Platelet Count 244 10^3/uL (130-400); Red Cell Dist. Width 12.9 % (11.5-14.5)
[2025-02-16 06:18] LABS: Blood Urea Nitrogen 31 mg/dl (9-20); Calcium 8.9 mg/dl (8.4-10.2); Carbon Dioxide 30 mmol/L (22-30); Chloride 100 mmol/L (98-107); Glucose 112 mg/dl (70-99); Sodium 138 mmol/L (135-145); eGFR > 60.00
--- NOTE | 2025-02-16 06:57 | ED.GENMED ---
History of Present Illness
General
Chief Complaint: Seizure
Time Seen by Provider: 02/16/25 06:30
History of Present Illness
History of Present Illness:
84-year-old male with history of seizure, CKD, hypertension, atrial fibrillation, dementia presenting to the emergency department for witnessed seizure. Patient presents from [facility] where he allegedly had an 8-minute seizure. Staff was
able to crush up and Ativan and put it in his mouth. On arrival to the hospital, arrives postictal, not able to answer any questions. arrived at bedside, reports recent prolonged hospitalization for seizure which was provoked by sepsis from
urinary tract infection. On review of EMR, patient was septic, required intubation, had adjustment of his medications. Patient is currently on Keppra 500 mg twice daily, carbamazepine 600 mg twice daily, lacosamide 200 mg twice daily. No
additional history obtained at this time
Past History
Past History
ED Past Medical History: Asthma, Cancer (Lung, melanoma), CHF, CVA, HTN, Hypercholesterolemia, Seizures and Other (COREY C-pap at night, Childhood Meningitis)
ED Past Surgical History: Tonsilectomy and Other (right lobectomy, Uvulectomy)
Social History
Tobacco: Non-smoker
Alcohol: None
Drug: None
Personal:
Living: with family
Employment: Retired
Family History
Family History: Other (reviewed and Noncontributory)
Phy Exam
Physical Exam
Physical Exam:
General:no clinical signs of dehydration, nontoxic and in no acute distress
HEENT: protecting airway, pupils equal and reactive
Neck: appears supple
CV: Normal heart rate, regular rhythm
Resp: No accessory muscle use, no increased work of breathing, lungs clear to auscultation bilaterally
Abd: Soft and non-distended, no tenderness to palpation
Extremities: No deformities, no swelling
Neuro: Postictal, responsive to pain
: deferred
Rectal: deferred
Psych: Normal affect
Skin: Intact
Course
Orders/Labs/Results
Orders:
Orders
02/16/25 05:17
Electrocardiogram (*1) Urgent
Reason for Study: Abdominal Pain
IV Insert/Care/Rem.- Treatment PRN
02/16/25 05:18
EKG- Treatment ONCE
02/16/25 05:51
Basic Metabolic Panel Urgent
Complete Blood Count/With Diff Urgent
02/16/25 06:43
Straight cath- Treatment ONCE
Levetiracetam Injectable [Keppra] 1,000 mg IV NOW STA
02/16/25 06:59
Potassium Urgent
02/16/25 07:15
Urinalysis Reflex To Culture Urgent
Date Specimen was Collected: 02/16/25
Time Specimen was Collected: 06:52
Urine Microscopic Reflex Cult Urgent
Urine Culture Urgent
MISHA Source: U
Specimen Description:
Date Specimen was Collected: 02/16/25
Time Specimen was Collected: 06:52
02/16/25 11:42
Cephalexin Monohydrate [Keflex] 500 mg PO NOW STA
Abnormal Lab Results
02/16/25 02/16/25
05:51 07:15
RBC 3.71 L 10^6/uL
(4.70-6.10)
Hgb 12.0 L g/dL
(13.0-18.0)
Hct 35.6 L %
(39.0-52.0)
MCV 96.0 H fL
(80.0-94.0)
MCH 32.3 H pg
(27.0-31.0)
Absolute Monos (auto) 0.8 H 10^3/uL
(0.1-0.6)
Monocytes % 9.8 H %
(1.7-9.3)
BUN 31 H mg/dl
(9-20)
Glucose 112 H mg/dl
(70-99)
Ur Occult Blood Reflex 4+ A
(Negative)
Leukocyte Esterase Rfl 3+ A
(Negative)
Urine RBC 11-15 A /HPF
(0-2)
Urine WBC (Reflex) 40-50 A /HPF
(0-5)
Urine Bacteria (Reflex) Moderate A
(Negative)
Urine Albumin (Reflex) 2+ A
(Neg - Trace)
02/16/25 05:51
02/16/25 06:59
Vital Signs
Initial and Last Documented VS:
Initial Vital Signs
Temp Pulse Resp BP Pulse Ox
98.4 F 64 14 154/59 96
02/16/25 05:19 02/16/25 05:19 02/16/25 05:19 02/16/25 05:19 02/16/25 05:19
Last Documented Vital Signs
Temp Pulse Resp BP Pulse Ox
98.6 F 82 16 135/60 96
02/16/25 12:00 02/16/25 13:42 02/16/25 13:42 02/16/25 13:42 02/16/25 13:42
MDM/Problems Addressed
MDM/Problems Addressed:
84-year-old male with history of seizure, CKD, hypertension, atrial fibrillation, dementia presenting after a seizure from the facility. Vital signs on arrival are significant for mild hypertension.
On exam, patient is resting comfortably, appears postictal, responsive to pain. Currently afebrile, nontoxic with lower suspicion for systemic infection, which allegedly was provoking seizures during recent admission. Suspect breakthrough seizure
in patient with known seizure disorder. Will screen with laboratory analysis and urinalysis. Will Keppra load. Will continue to closely monitor and ensure that awakens appropriately
09:00 - Patient is more alert, however still somnolent, sleeping comfortably. Labs unremarkable. However urine does again show some elements of infection. Given recent complicated hospital admission and presentation with seizure, will treat with
antibiotics. Plan for discharge once patient more awake and alert
11:40 -patient is now awake, talking, although mumbled speech. reports that this is his baseline since the end of September. Vital signs otherwise remained stable. Feel stable for discharge with continued outpatient treatment of his seizures.
Will prescribe Keflex for suspected UTI. Return precautions discussed
*Pulse Oximetry
SaO2: 95
Oxygen Mode of Delivery: Room air
Patient hypoxic: no
*EKG
Interpreted by ED Provider?: Yes
EKG Intrepretation Date: 02/16/25
EKG Intrepretation Time: 07:01
Interpretation: normal
Comparison EKG: no changes (01/29/25)
Heart Rate: 63
Rate: normal
Rhythm: sinus
[place]: normal axis
Interval: normal interval
QRS Pattern: normal QRS
Ischemia: no ischemia
*Critical Care Note
Total Time (30-74mins, 75-104mins- exclusive of procedures): Not Applicable
Update Note
Update Note:
14:30 -patient had been picked up allegedly by the wrong ambulance company and they took him to the wrong facility. They then returned the patient to our facility. When trying to arrange correct transportation to [facility], they are
requesting medical clearance. Patient reassessed, no signs of trauma, no acute complaints. He is awake, alert, speaking at his baseline, requesting water. Patient again stable for transportation back to [facility].
ED Attending Note
-
Portions of this chart may have been created with voice recognition software.� Occasional wrong word or��sound alike� substitutions may have occurred due to the inherent limitations of voice recognition software.
Discharge Plan
Departure
Patient Disposition: Home (Routine Discharge)
Date of Disposition: 02/16/25
Time of Disposition: 11:44
Patient with high blood pressure during this ER visit?: No
Condition: Good
Discharge Problem:
Seizure, Urinary tract infection
Instructions: Seizures, Adult (DC), Urinary tract infection in adults - ED discharge instructions
Prescriptions:
New
cephalexin 500 mg capsule
500 mg PO BID 7 Days Qty: 14 0RF
No Action
minoxidil 10 mg Tablet
10 mg PO BID
furosemide 40 mg Tablet
40 mg PO DAILY
cyanocobalamin (vitamin B-12) 1,000 mcg tablet
1,000 mcg PO DAILY
pantoprazole 40 mg tablet,delayed release (DR/EC)
40 mg PO DAILY
clonidine 0.2 mg/24 hr patch weekly
0.2 mg transdermal WE 30 Days Qty: 4 0RF
carbamazepine 200 mg tablet extended release 12 hr
400 mg PO BID
levetiracetam 500 mg tablet
1,750 mg PO BID
lorazepam 1 mg tablet
1 mg PO Q6HPRN PRN (Reason: anxiety)
ondansetron HCl 4 mg tablet
4 mg PO BIDPRN PRN (Reason: NAUSEA)
carbamazepine 100 mg tablet extended release 12 hr
200 mg PO BID
Rx Instructions:
Take 200 mg BID plus the 400 mg BID you were already taking, total of 600 mg BID
lacosamide 200 mg tablet
200 mg PO BID
amlodipine 5 mg Tablet
5 mg PO DAILY 90 Days Qty: 90 0RF
cenobamate 25 mg tablet
25 mg PO DAILY 90 Days Qty: 90 0RF
Rx Instructions:
Use to up-titrate as instructed
acetaminophen 325 mg Tablet
650 mg PO Q4H PRN (Reason: mild pain/fever >100.4)
tamsulosin 0.4 mg Capsule
0.4 mg PO HS
mirtazapine 7.5 mg Tablet
7.5 mg PO HS
magnesium hydroxide 2,400 mg/10 mL Suspension
5 ml PO DAILY PRN (Reason: constipation)
warfarin 4 mg tablet
3 mg PO QHS
cenobamate 200 mg tablet
200 mg PO DAILY
Referrals:
Robin Garcia MD [Family Provider, Internal Medicine]
Activity Restrictions/Additional Instructions:
You were seen in the emergency department for a seizure
You were given an additional dose of your seizure medication. You had no additional seizures while in the ER. Your labs did show possible urinary tract infection. You were started on an antibiotic called cephalexin. Please take twice a day for
the next 7 days.
Please follow-up closely with your primary care physician.
Return to the emergency department for any worsening of your symptoms, or any development of chest pain, difficulty breathing, abdominal pain with persistent vomiting and inability to tolerate food or liquid by mouth (concern for dehydration),
weakness, headache or confusion, fever greater than 100.4, or any additional symptoms that are concerning to you.
Thank you for choosing [facility].
Interventions
Interventions:
*Risk Screen - Suicide Last Done: 02/16/25 05:19
*General Assessment Last Done: 02/16/25 05:19
*Neglect/Abuse Screening Last Done: 02/16/25 05:19
*ED- Fall Risk Assessment Last Done: 02/16/25 08:00
*ED COVID-19 Vaccine History Last Done: 02/16/25 05:19
*Nursing Disposition Last Done: 02/16/25 13:12
ED- Cardiac Assessment Last Done: 02/16/25 05:52
ED- Neurological Assessment Last Done: 02/16/25 05:52
ED- Pulmonary Assessment Last Done: 02/16/25 05:52
Discharge Date and Time
Discharge Date/Time: 02/16/25 13:43
Print Language: UKRAINIAN
[2025-02-16] MEDS: KEPPRA 1000 MG IV (07:30)
[2025-02-16 07:46] LABS: Urine Character Slightly Cloudy (Clear)
[2025-02-16 07:51] LABS: Potassium 4.1 mmol/L (3.5-5.1)
[2025-02-16 08:07] LABS: Urine Squamous Cell 26-30 /LPF (Few)
[2025-02-16 08:09] LABS: Urine White Cell 40-50 /HPF (0-5)
--- NOTE | 2025-02-16 08:35 | EDRN ---
medication reconciliation completed and performed by this RN with medication list sent by [facility]
[2025-02-16] MEDS: KEFLEX 500 MG PO (11:49)
--- NOTE | 2025-02-16 13:07 | EDRN ---
this RN called [facility] at [phone] to give verbal report and to notify them that the pt was being sent back to the facility and this RN spoke to Gisel and gave verbal report on the pt
--- NOTE | 2025-02-16 16:32 | EDRN ---
Addendum entered by Daisy Patel RN 02/16/25 16:34:
this RN called the pts a second time and the pts answered and this RN updated the pts and apologized again for the inconvenience
Original Note:
Acute Care has arrived for the pt, this RN confirmed that transport was acute care, this RN confirmed that they are here for this patient and this RN confirmed that the pt is being taken back to [facility], this RN called the pts Anne
at [phone] to update her that the pt was coming back and this RN left a message
== END 2025-02-16 16:35 | disposition home or self-care (01) ==
LOC: EMR 05:16
PROVIDERS: Emergency Medicine; EMERGENCY PHYSICIAN Student in an Organized Health Care Education/Training Program; FAMILY PHYSICIAN Internal Medicine
DX: R56.9 Unspecified convulsions (principal); N39.0 Urinary tract infection, site not specified; I13.0 Hypertensive heart and chronic kidney disease with heart failure and stage 1 through stage 4 chronic kidney disease, or unspecified chronic kidney disease; I50.9 Heart failure, unspecified; N18.9 Chronic kidney disease, unspecified; E78.00 Pure hypercholesterolemia, unspecified; F03.90 Unspecified dementia, unspecified severity, without behavioral disturbance, psychotic disturbance, mood disturbance, and anxiety; G47.33 Obstructive sleep apnea (adult) (pediatric); I48.91 Unspecified atrial fibrillation; J45.909 Unspecified asthma, uncomplicated; Z79.899 Other long term (current) drug therapy; Z85.820 Personal history of malignant melanoma of skin; Z86.73 Personal history of transient ischemic attack (TIA), and cerebral infarction without residual deficits; Z87.440 Personal history of urinary (tract) infections
CPT/HCPCS: 99283; 96374; 80048; 81003; 81015; 84132; 85025; 87077; 87086; 87186; 93005

== ENCOUNTER 2025-02-17 02:13 | Emergency (ER) | payer MEDICARE, OTHER, SELFPAY ==
[2025-02-17 02:18] VITALS: BP 133/56
[2025-02-17 02:49] LABS: Hematocrit 34.4 % (39.0-52.0); Hemoglobin 11.7 g/dL (13.0-18.0); Mean Corp Hgb Conc. 34.0 g/dL (33.0-37.0); Mean Corpuscular Volume 95.3 fL (80.0-94.0); Nucleated Red Blood Cells % 0 % (-); Platelet Count 256 10^3/uL (130-400); Red Cell Dist. Width 13.2 % (11.5-14.5)
[2025-02-17 03:08] LABS: ALT (SGPT) 16 U/L (0-50); AST (SGOT) 27 U/L (17-59); Albumin 4.1 g/dl (3.5-5.0); Alkaline Phosphatase 79 U/L (38-126); Blood Urea Nitrogen 32 mg/dl (9-20); Calcium 9.1 mg/dl (8.4-10.2); Carbon Dioxide 31 mmol/L (22-30); Chloride 101 mmol/L (98-107); Glucose 136 mg/dl (70-99); Potassium 4.9 mmol/L (3.5-5.1); Sodium 137 mmol/L (135-145); Total Protein 8.1 g/dl (6.3-8.2); eGFR > 60.00
[2025-02-17] MEDS: NSS 1000 IV (03:34)
--- NOTE | 2025-02-17 04:05 | ED.GENMED ---
History of Present Illness
General
Chief Complaint: Change in Mental Status
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
Exam Limitations: altered mental status and dementia
Time Seen by Provider: 02/17/25 02:40
Nursing documentation reviewed up to this point in time: agreed with
History of Present Illness
History of Present Illness:
This is an 84-year-old gentleman with history of seizure disorder, chronic kidney disease, hypertension, A-fib chronically maintained on Coumadin, dementia. Several recent lengthy hospitalizations through November and most of December due to nonconvulsive
status epilepticus, recurrent seizures. Several epilepsy medications have been adjusted during those hospitalizations.
He was also noted to have a UTI during most recent hospitalization January 22 to February 04, treated with IV antibiotics.
He was evaluated in this ED yesterday after a witnessed seizure at the longterm. No recurrent seizures during ED visit. CT of the head unremarkable. He was noted to have UTI and started on Keflex.
He is sent to the ED again tonight by longterm staff due to concern for increased lethargy and somnolence, not responding to verbal commands and eyes rolled up.
Upon review of extensive inpatient records patient noted to have similar periods of lethargy, somnolence thought to be postictal in nature versus encephalopathy. Lumbar puncture was negative. Extensive repeated neurologic imaging all unremarkable.
Past History
Past History
ED Past Medical History: Asthma, Cancer (Lung, melanoma), CHF, CVA, HTN, Hypercholesterolemia, Seizures and Other (COREY C-pap at night, Childhood Meningitis)
ED Past Surgical History: Tonsilectomy and Other (right lobectomy, Uvulectomy)
Social History
Tobacco: Non-smoker
Alcohol: None
Drug: None
Personal:
Living: with family
Employment: Retired
Family History
Family History: Other (reviewed and Noncontributory)
Phy Exam
Physical Exam
Physical Exam:
GENERAL: 84-year-old gentleman appears his stated age, appears somewhat chronically debilitated. He is awake but drowsy, intermittently rolling his eyes upward but able to answer a few yes/no questions appropriately. Intermittently smiling at
examiner.
EYE: pupils equal and reactive. anicteric
NECK: Supple, nontender, no meningismus, no significant adenopathy.
ENT: posterior pharynx is clear, oral mucosa is moist. No rhinorrhea.
CARDIAC: Regular rate and rhythm. no murmur.
LUNGS: Clear breath sounds bilaterally, no acute respiratory distress, no wheezes/rales/rhonchi
ABDOMEN: Soft, nondistended, without focal tenderness, no r/g, no cvat. normoactive BS.
NEUROLOGICAL: Awake, drowsy, answering yes/no questions appropriately, no focal neuro deficits. No tremor noted.
SKIN: Warm and dry, normal color, skin intact. Fair turgor. No rash.
MUSCULOSKELETAL: No C/C/E. peripheral pulses are full and equal b/l. No palpable tenderness.
PSYCH: Normal and appropriate interaction.
Course
Orders/Labs/Results
Orders:
Orders
02/17/25 02:41
CBC/With Diff [Complete Blood Count/With Diff] Urgent
Comprehensive Metabolic Panel Urgent
02/17/25 02:44
EEG [Rapid Point of Care EEG (ED/ICU ONLY)] Q1H
Indications for use:: Altered Mental Status
Comment: hx seizures
02/17/25 03:27
0.9% Sodium Chloride 1000 ml [Nss] 1,000 ml IV BOLUS
Abnormal Lab Results
02/17/25
02:41
RBC 3.61 L 10^6/uL
(4.70-6.10)
Hgb 11.7 L g/dL
(13.0-18.0)
Hct 34.4 L %
(39.0-52.0)
MCV 95.3 H fL
(80.0-94.0)
MCH 32.4 H pg
(27.0-31.0)
Absolute Neuts (auto) 6.8 H 10^3/uL
(1.4-6.5)
Absolute Lymphs (auto) 0.9 L 10^3/uL
(1.2-3.4)
Absolute Monos (auto) 1.0 H 10^3/uL
(0.1-0.6)
Neutrophils % 76.8 H %
(42.2-75.2)
Lymphocytes % 10.4 L %
(20.5-51.1)
Monocytes % 11.3 H %
(1.7-9.3)
Carbon Dioxide 31 H mmol/L
(22-30)
BUN 32 H mg/dl
(9-20)
Glucose 136 H mg/dl
(70-99)
02/17/25 02:41
02/17/25 02:41
Vital Signs
Initial and Last Documented VS:
Initial Vital Signs
Temp Pulse Resp BP Pulse Ox
98.6 F 77 22 133/56 95
02/17/25 02:18 02/17/25 02:18 02/17/25 02:18 02/17/25 02:18 02/17/25 02:18
Last Documented Vital Signs
Temp Pulse Resp BP Pulse Ox
98.6 F 77 22 133/56 95
02/17/25 02:18 02/17/25 02:18 02/17/25 02:18 02/17/25 02:18 02/17/25 02:18
MDM/Problems Addressed
Differential Diagnosis Includes:
Concern for recurrent seizure, postictal state, metabolic encephalopathy.
Concern for progression of UTI, potential for sepsis however reassuring the patient does not have a fever.
No focal neurodeficits. CVA is unlikely.
Will recheck CBC, complete metabolic panel.
Will place bedside EEG.
Chronic conditions affecting care: Arrhythmia, Neurological disorder and Kidney disease (Recent UTI)
Acute Exacerbation and/or Progression of Chronic Illness: Neurological disorder
*Pulse Oximetry
SaO2: 95
Oxygen Mode of Delivery: Room air
Patient hypoxic: no
*Cosmetic Maker Interpretation
Rate: normal
Interpretation: normal
Rhythm: sinus
*Critical Care Note
Total Time (30-74mins, 75-104mins- exclusive of procedures): Not Applicable
Update Note
Update Note:
Bedside EEG monitoring over the past hour. There has been no seizure activity.
Patient sleeping, awakens easily and once awake he is moderately drowsy but able to to answer yes/no questions appropriately.
Patient may have suffered a breakthrough seizure earlier this evening and presents with postictal state.
Upon extensive review of recent lengthy hospitalizations, similar episodes occurred throughout his hospital stays.
Labs are reassuring.
Urinalysis from yesterday consistent with UTI. Keflex initiated. Patient remains at afebrile. Urine culture is pending.
At this point no indication for hospitalization. Will discharge back to longterm for continued care.
ED Attending Note
-
Portions of this chart may have been created with voice recognition software.� Occasional wrong word or��sound alike� substitutions may have occurred due to the inherent limitations of voice recognition software.
Discharge Plan
Departure
Patient Disposition: Longterm/SNF
Date of Disposition: 02/17/25
Time of Disposition: 04:07
Patient with high blood pressure during this ER visit?: No
Condition: Fair
Discharge Problem:
Seizure disorder, Metabolic encephalopathy
Instructions: Altered Mental Status (DC), Dementia (DC), Epilepsy in adults
Prescriptions:
No Action
minoxidil 10 mg Tablet
10 mg PO BID
furosemide 40 mg Tablet
40 mg PO DAILY
cyanocobalamin (vitamin B-12) 1,000 mcg tablet
1,000 mcg PO DAILY
pantoprazole 40 mg tablet,delayed release (DR/EC)
40 mg PO DAILY
clonidine 0.2 mg/24 hr patch weekly
0.2 mg transdermal WE 30 Days Qty: 4 0RF
carbamazepine 200 mg tablet extended release 12 hr
400 mg PO BID
levetiracetam 500 mg tablet
1,750 mg PO BID
lorazepam 1 mg tablet
1 mg PO Q6HPRN PRN (Reason: anxiety)
ondansetron HCl 4 mg tablet
4 mg PO BIDPRN PRN (Reason: NAUSEA)
carbamazepine 100 mg tablet extended release 12 hr
200 mg PO BID
Rx Instructions:
Take 200 mg BID plus the 400 mg BID you were already taking, total of 600 mg BID
lacosamide 200 mg tablet
200 mg PO BID
amlodipine 5 mg Tablet
5 mg PO DAILY 90 Days Qty: 90 0RF
cenobamate 25 mg tablet
25 mg PO DAILY 90 Days Qty: 90 0RF
Rx Instructions:
Use to up-titrate as instructed
acetaminophen 325 mg Tablet
650 mg PO Q4H PRN (Reason: mild pain/fever >100.4)
tamsulosin 0.4 mg Capsule
0.4 mg PO HS
mirtazapine 7.5 mg Tablet
7.5 mg PO HS
magnesium hydroxide 2,400 mg/10 mL Suspension
5 ml PO DAILY PRN (Reason: constipation)
warfarin 4 mg tablet
3 mg PO QHS
cenobamate 200 mg tablet
200 mg PO DAILY
cephalexin 500 mg capsule
500 mg PO BID 7 Days Qty: 14 0RF
Referrals:
Robin Garcia MD [Family Provider, Internal Medicine] - Follow up in 2-3 days
Interventions
Interventions:
*Risk Screen - Suicide Last Done: 02/17/25 02:18
*General Assessment Last Done: 02/17/25 02:18
*Neglect/Abuse Screening Last Done: 02/17/25 02:18
*ED- Fall Risk Assessment Last Done: 02/17/25 02:18
*ED COVID-19 Vaccine History Last Done: 02/17/25 02:18
Discharge Date and Time
Print Language: MALAYSIAN
--- NOTE | 2025-02-17 15:02 | W.RAPID.EEG ---
Rapid EEG
-
Procedure Date: 02/17/25
Results:
Point of Care EEG Procedure Note
Patient name: INGRID CHENEY
Medical ID: [id number]
Date of : 1940
Age: 84
IMPRESSION:
No evidence status epilepticus
Recording 1 Duration: 2025-02-17 03:02:47 - 2025-02-17 04:36:39
Recording Total Time: 01:33:52 (94 minutes)
Ordering Physician: EVER
Recording Technique: This EEG was obtained using a 10 lead, 8 channel circumferential rapid EEG with no parasagittal coverage.
Performed with Colin Govea Status Epilepticus Monitor, ICD-10 MH89Y10
Clinical History: INGRID CHENEY is a 84 year old Prior Seizure patient undergoing EEG to screen for non-convulsive status epilepticus.
Primary Indication: Prior Seizure
Location: ED
Report prepared by: Kevin Edouard
Report generated on: Feb 17, 2025 3:03 PM UTC-4
== END 2025-02-17 05:46 ==
LOC: EMR 02:13
PROVIDERS: EMERGENCY PHYSICIAN Emergency Medicine; FAMILY PHYSICIAN Internal Medicine
DX: G40.909 Epilepsy, unspecified, not intractable, without status epilepticus (principal); G93.41 Metabolic encephalopathy; N39.0 Urinary tract infection, site not specified; F03.90 Unspecified dementia, unspecified severity, without behavioral disturbance, psychotic disturbance, mood disturbance, and anxiety; I13.0 Hypertensive heart and chronic kidney disease with heart failure and stage 1 through stage 4 chronic kidney disease, or unspecified chronic kidney disease; N18.9 Chronic kidney disease, unspecified; I50.9 Heart failure, unspecified; J45.909 Unspecified asthma, uncomplicated; I48.91 Unspecified atrial fibrillation; G47.33 Obstructive sleep apnea (adult) (pediatric); E78.00 Pure hypercholesterolemia, unspecified; Z79.01 Long term (current) use of anticoagulants; Z85.820 Personal history of malignant melanoma of skin; Z85.118 Personal history of other malignant neoplasm of bronchus and lung; Z86.73 Personal history of transient ischemic attack (TIA), and cerebral infarction without residual deficits; Z90.2 Acquired absence of lung [part of]; Z88.8 Allergy status to other drugs, medicaments and biological substances; Z91.048 Other nonmedicinal substance allergy status
CPT/HCPCS: 99284; 96360; 80053; 85025

== ENCOUNTER → 2025-03-05 09:51 | Outpatient (REF) | payer OTHER, MEDICARE, SELFPAY | LOC: OLABN 09:51 | PROVIDERS: ATTENDING PHYSICIAN Student in an Organized Health Care Education/Training Program | DX: G40.803 Other epilepsy, intractable, with status epilepticus (principal) | CPT/HCPCS: 36415 ==

== ENCOUNTER → 2025-03-10 12:20 | Outpatient (REF) | payer OTHER, MEDICARE, SELFPAY | LOC: OLABN 12:20 | PROVIDERS: ATTENDING PHYSICIAN Student in an Organized Health Care Education/Training Program | DX: G40.803 Other epilepsy, intractable, with status epilepticus (principal) | CPT/HCPCS: 36415; 80177 ==

== ENCOUNTER → 2025-04-15 10:36 | Outpatient (REF) | payer MEDICARE, OTHER, SELFPAY ==
[2025-04-15 13:11] LABS: Urine Character Slightly Cloudy (Clear)
[2025-04-15 14:34] LABS: Urine Red Blood Cell None Seen /HPF (0-2); Urine Squamous Cell None seen /LPF (Few)
[2025-04-15 14:35] LABS: Urine White Cell 16-20 /HPF (0-5)
== END ==
LOC: OLABN 10:36
PROVIDERS: ATTENDING PHYSICIAN Student in an Organized Health Care Education/Training Program
DX: R35.0 Frequency of micturition (principal)
CPT/HCPCS: 81003; 81015; 87077; 87086